=== PATIENT | female | born 1945 ===

== ENCOUNTER → 2020-02-12 08:09 | Outpatient (BNVA) | payer MEDICARE, SELFPAY | PROVIDERS: PCP Nurse Practitioner Family; Referring Provider Nurse Practitioner Family; Visit Provider Internal Medicine Endocrinology, Diabetes & Metabolism | DX: E03.8 Other specified hypothyroidism (principal); E06.3 Autoimmune thyroiditis; E04.2 Nontoxic multinodular goiter; R13.10 Dysphagia, unspecified; R06.00 Dyspnea, unspecified; Z79.899 Other long term (current) drug therapy | CPT/HCPCS: 99212 ==

== ENCOUNTER 2020-02-17 19:46 | Emergency (ER) | payer MEDICARE, SELFPAY ==
[2020-02-17 19:58] VITALS: BP 118/53; PULSE 100; RESP 20; TEMP 38.7; O2SAT 93; BMI 38.7
--- NOTE | 2020-02-17 20:17 | PC.NURSE ---
IV established, blood work including BCX and lactic obtained. Awaiting MD hay.
--- NOTE | 2020-02-17 21:04 | ED.FEVER ---
HPI - Fever General Chief Complaint: Fever Stated Complaint: Fever,Chills Time Seen by Provider: 02/17/20 20:49 Source: patient Mode of arrival: ambulatory Limitations: no limitations History of Present Illness HPI Narrative: patient with 3 days of fever, NVD, occaisional cough MD elicited complaint: fever Onset (ago): day(s) Related Data Home Medications Medication Instructions Recorded Confirmed atorvastatin 40 mg tablet 40 mg PO BEDTIME 02/12/20 blood sugar diagnostic #10 ea 02/12/20 ferrous sulfate 325 mg (65 mg 325 mg PO DAILY 02/12/20 iron) tablet glipizide 5 mg tablet, extended 5 mg PO DAILY 02/12/20 release 24 hr insulin glargine 100 unit/mL (3 40 unit SUBCUT BID ml 02/12/20 mL) subcutaneous pen lancets 28 gauge #100 ea 02/12/20 losartan 25 mg tablet 25 mg PO DAILY 02/12/20 metformin 500 mg tablet 500 mg PO BID 02/12/20 metoprolol succinate 50 mg 50 mg PO DAILY 02/12/20 tablet,extended release 24 hr omeprazole magnesium 20 mg 20 mg PO DAILY 02/12/20 tablet,delayed release pregabalin 100 mg capsule 100 mg PO BEDTIME 02/12/20 Previous Rx's Medication Instructions Recorded levothyroxine 75 mcg tablet 75 mcg PO DAILY 90 Days #90 tab 02/14/20 Allergies Allergy/AdvReac Type Severity Reaction Status Date / Time penicillin G [Penicillin G] Allergy Mild RASH/HIVES Unverified 12/27/19 15:54 lisinopril Allergy Unknown itching Verified 03/01/19 00:00 penicillin V Allergy Unknown Verified 03/01/19 00:00 Review of Systems Constitutional: Constitutional: Reports no additional constitutional complaints Eyes: Eyes: Reports no additional eye complaints ENT: Denies dizziness Cardiovascular: Cardiovascular: Reports no additional cardiovascular complaints Respiratory: Respiratory: Reports as per HPI Gastrointestinal: Gastrointestinal: Reports no additional gastrointestinal complaints Genitourinary: Genitourinary: Reports no additional female genitourinary complaints Musculoskeletal: Musculoskeletal: Reports no additional musculoskeletal complaints Integumentary/Breasts: Skin/Breast: Denies rash Neurologic: Reports system reviewed and no additional complaints, except as documented, Denies dizziness and Denies Sensory deficit (Neuro) Psychiatric: Psychiatric: Denies anxiety PMFSH Past Medical History Medical History Dysphagia Dyspnea Hypothyroidism Non-toxic multinodular goiter Surgical History History of carpal tunnel release History of partial hysterectomy History of tubal ligation Hx of cataract surgery Hx of cholecystectomy Hx of colonoscopy Hx of tonsillectomy Family History Family History (Updated 02/11/20 @ 11:38 by Melinda Dyer) Father Throat cancer Heart disease CVD (cardiovascular disease) Mother Stomach cancer Type 2 diabetes mellitus Arthritis of knee Hypertension Social History Social History Smoking Status: Never smoker Advance Directives: No Advance Directives Information Provided: Yes Physical Exam Vital Signs: Vital Signs: Last Vital Signs Temp 99.7 F 02/17/20 21:18 Pulse 91 02/17/20 21:18 Resp 16 02/17/20 21:18 BP 116/48 L 02/17/20 21:18 Pulse Ox 95 02/17/20 21:18 Body Mass Index 38.7 Const: Nutritional Appearance: obese Orientation/consciousness: oriented to person and patient oriented x3 Limitations: no limitations HENMT: Head: Yes normal to inspection Ears: external ears normal General nose exam: Normal external nose present Mouth: Normal oral and palatal mucosa present and oropharynx normal Throat: Yes posterior oropharynx normal Eyes: General: appearance normal, both eyes and all related structures Neck: Other: supple Neck: Yes normal visual inspection Chest: Chest palpation & inspection: normal inspection of the chest Resp: Auscultation: clear to auscultation bilaterally Cardio: Jugular venous distension: no JVD Rate: regular rate Rhythm: regular rhythm Heart sounds: S1 normal heart sound present and S2 normal heart sound present GI: Inspection: Yes normal to inspection Palpation (GI): Soft to palpation, nontender and No hepatosplenomegaly present Auscultation: normal bowel sounds : General: Yes no CVA tenderness Back/Spine/Pelvis: Back: no CVA tenderness Skin: General skin exam: no rashes or lesions noted Neuro: General: oriented to person and patient oriented x3 Cranial nerves: Yes CN's II-XII intact bilaterally Motor exam (neuro): 5/5 motor strength present throughout Sensory Exam: No Sensory deficit (Neuro) Extrem: General: Yes normal to inspection Psych: Appearance: grossly normal Course Course Course Narrative: Patient with no evidence of sepsis, awaiting stool for cdiff, looking well will dc home MDM - Fever MDM Narrative Medical decision making narrative: sepsis and pneumonia ruled out. CXR looks normal to me and questionable reading of infiltrate by radiologist. Will not treat at this time, will dc home with gastroenteritis and possible COVID Differential Diagnosis Differential diagnosis: Likely fever of unknown origin, gastroenteritis and viral infection Medical Records Attestation: I reviewed the patient's medical records. Lab Data Attestation: I reviewed the patient's lab results. Result diagrams: 02/17/20 20:58 02/17/20 20:58 Labs: Lab Results 02/17/20 02/17/20 02/17/20 Range/Units 20:58 20:58 20:58 WBC 5.4 (4.8-10.8) X10*3/uL RBC 4.02 L (4.20-5.50) X10*6/uL Hgb 11.8 L (12.0-16.0) g/dl Hct 35.1 L (37-47) % MCV 87.3 (80-98) fL MCH 29.4 (27.0-33.0) pg MCHC 33.6 (31.0-35.0) g/dl RDW 14.5 (11.0-16.0) % Plt Count 174 (160-400) X10*3/uL MPV 9.9 (9.4-12.3) fL Immature Gran % (Auto) 0.2 (0.0-0.4) % Neut % (Auto) 71.0 (45-73) % Lymph % (Auto) 16.0 L (20-40) % [place] % (Auto) 12.6 H (2-11) % Eos % (Auto) 0.0 (0-4) % Baso % (Auto) 0.2 (0-2) % Lymph # (Auto) 0.9 L (1.2-4.9) X10*3/uL [place] # (Auto) 0.7 (0.1-1.2) X10*3/uL Eos # (Auto) 0.0 (0.0-0.4) X10*3/uL Baso # (Auto) 0.0 (0.0-0.2) X10*3/uL Abs Immat Gran (auto) 0.01 (0.00-0.03) X10*3/uL Absolute Neuts (auto) 3.8 (2.0-8.3) X10*3/uL Absolute Nucleated RBC 0.000 (0.0-0.012) X10*3/uL Nucleated RBC % (auto) 0.0 (0.0-0.2) /100WBC PT 13.5 H (10.8-13.0) SEC INR 1.1 (0.9-1.1) APTT 33.3 (24.1-38.0) SEC Sodium 140 (135-145) mmol/L Potassium 3.5 (3.3-5.1) mmol/l Chloride 104 (96-108) mmol/L Carbon Dioxide 26 (22-29) mmol/L Anion Gap 14 (12-20) BUN 10 (9-16) mg/dL Creatinine 0.78 (0.5-1.4) mg/dL Estim Creat Clear Calc 72.2 Estimated GFR > 60 Random Glucose 179 H (60-115) mg/dL Lactic Acid (0.5-2.0) mmol/L Calcium 8.2 L (8.4-10.2) mg/dL Total Bilirubin 0.4 (0.0-1.0) mg/dL Direct Bilirubin 0.2 (0.0-0.5) mg/dL AST 44 H (5-31) U/L ALT 26 (0-31) U/L Alkaline Phosphatase 86 (39-117) U/L Total Protein 6.5 (6.5-8.0) g/dL Albumin 3.8 (3.5-5.0) g/dL Lipase 26 (8-78) U/L Urine Color Urine Appearance Urine pH (5.0-8.0) Ur Specific [place] (1.005-1.025) Urine Protein (NEG-TRACE) MG/DL Urine Glucose (UA) (NEG) MG/DL Urine Ketones (NEG) MG/DL Urine Blood (NEG) Urine Nitrite (NEG) Ur Leukocyte Esterase (NEG) Urine RBC (0) /HPF Urine WBC (0-4) /HPF Ur Squamous Epith Cells /LPF Urine Bacteria /LPF Urine Mucus /LPF Coronavirus (PCR) 02/17/20 02/17/20 02/17/20 Range/Units 20:58 20:58 20:58 WBC Cancelled (4.8-10.8) X10*3/uL RBC Cancelled (4.20-5.50) X10*6/uL Hgb Cancelled (12.0-16.0) g/dl Hct Cancelled (37-47) % MCV Cancelled (80-98) fL MCH Cancelled (27.0-33.0) pg MCHC Cancelled (31.0-35.0) g/dl RDW Cancelled (11.0-16.0) % Plt Count Cancelled (160-400) X10*3/uL MPV Cancelled (9.4-12.3) fL Immature Gran % (Auto) Cancelled (0.0-0.4) % Neut % (Auto) Cancelled (45-73) % Lymph % (Auto) Cancelled (20-40) % [place] % (Auto) Cancelled (2-11) % Eos % (Auto) Cancelled (0-4) % Baso % (Auto) Cancelled (0-2) % Lymph # (Auto) Cancelled (1.2-4.9) X10*3/uL [place] # (Auto) Cancelled (0.1-1.2) X10*3/uL Eos # (Auto) Cancelled (0.0-0.4) X10*3/uL Baso # (Auto) Cancelled (0.0-0.2) X10*3/uL Abs Immat Gran (auto) Cancelled (0.00-0.03) X10*3/uL Absolute Neuts (auto) Cancelled (2.0-8.3) X10*3/uL Absolute Nucleated RBC Cancelled (0.0-0.012) X10*3/uL Nucleated RBC % (auto) Cancelled (0.0-0.2) /100WBC PT (10.8-13.0) SEC INR (0.9-1.1) APTT (24.1-38.0) SEC Sodium (135-145) mmol/L Potassium (3.3-5.1) mmol/l Chloride (96-108) mmol/L Carbon Dioxide (22-29) mmol/L Anion Gap (12-20) BUN (9-16) mg/dL Creatinine (0.5-1.4) mg/dL Estim Creat Clear Calc Estimated GFR Random Glucose (60-115) mg/dL Lactic Acid 1.8 (0.5-2.0) mmol/L Calcium (8.4-10.2) mg/dL Total Bilirubin (0.0-1.0) mg/dL Direct Bilirubin (0.0-0.5) mg/dL AST (5-31) U/L ALT (0-31) U/L Alkaline Phosphatase (39-117) U/L Total Protein (6.5-8.0) g/dL Albumin (3.5-5.0) g/dL Lipase (8-78) U/L Urine Color Urine Appearance Urine pH (5.0-8.0) Ur Specific [place] (1.005-1.025) Urine Protein (NEG-TRACE) MG/DL Urine Glucose (UA) (NEG) MG/DL Urine Ketones (NEG) MG/DL Urine Blood (NEG) Urine Nitrite (NEG) Ur Leukocyte Esterase (NEG) Urine RBC (0) /HPF Urine WBC (0-4) /HPF Ur Squamous Epith Cells /LPF Urine Bacteria /LPF Urine Mucus /LPF Coronavirus (PCR) Cancelled 02/17/20 Range/Units 21:45 WBC (4.8-10.8) X10*3/uL RBC (4.20-5.50) X10*6/uL Hgb (12.0-16.0) g/dl Hct (37-47) % MCV (80-98) fL MCH (27.0-33.0) pg MCHC (31.0-35.0) g/dl RDW (11.0-16.0) % Plt Count (160-400) X10*3/uL MPV (9.4-12.3) fL Immature Gran % (Auto) (0.0-0.4) % Neut % (Auto) (45-73) % Lymph % (Auto) (20-40) % [place] % (Auto) (2-11) % Eos % (Auto) (0-4) % Baso % (Auto) (0-2) % Lymph # (Auto) (1.2-4.9) X10*3/uL [place] # (Auto) (0.1-1.2) X10*3/uL Eos # (Auto) (0.0-0.4) X10*3/uL Baso # (Auto) (0.0-0.2) X10*3/uL Abs Immat Gran (auto) (0.00-0.03) X10*3/uL Absolute Neuts (auto) (2.0-8.3) X10*3/uL Absolute Nucleated RBC (0.0-0.012) X10*3/uL Nucleated RBC % (auto) (0.0-0.2) /100WBC PT (10.8-13.0) SEC INR (0.9-1.1) APTT (24.1-38.0) SEC Sodium (135-145) mmol/L Potassium (3.3-5.1) mmol/l Chloride (96-108) mmol/L Carbon Dioxide (22-29) mmol/L Anion Gap (12-20) BUN (9-16) mg/dL Creatinine (0.5-1.4) mg/dL Estim Creat Clear Calc Estimated GFR Random Glucose (60-115) mg/dL Lactic Acid (0.5-2.0) mmol/L Calcium (8.4-10.2) mg/dL Total Bilirubin (0.0-1.0) mg/dL Direct Bilirubin (0.0-0.5) mg/dL AST (5-31) U/L ALT (0-31) U/L Alkaline Phosphatase (39-117) U/L Total Protein (6.5-8.0) g/dL Albumin (3.5-5.0) g/dL Lipase (8-78) U/L Urine Color YELLOW Urine Appearance CLEAR Urine pH 6.5 (5.0-8.0) Ur Specific [place] 1.020 (1.005-1.025) Urine Protein 2+ H (NEG-TRACE) MG/DL Urine Glucose (UA) NEG (NEG) MG/DL Urine Ketones 5 (NEG) MG/DL Urine Blood NEG (NEG) Urine Nitrite NEG (NEG) Ur Leukocyte Esterase TRACE H (NEG) Urine RBC 0 (0) /HPF Urine WBC 0-2 (0-4) /HPF Ur Squamous Epith Cells 1+ /LPF Urine Bacteria 1+ /LPF Urine Mucus 1+ /LPF Coronavirus (PCR) Imaging Data Chest x-ray: Radiologist's impression: question of RLL infiltrate Discharge Plan Discharge Clinical Impression: Gastroenteritis, Viral infection, COVID-19 Patient Disposition: Home, Self-Care Instructions: COVID-19 (Coronavirus Disease 2019) (ED), Gastroenteritis (ED) Additional Instructions: fluids as tolerated, tylenol or motrin for fever Prescriptions: No Action Lantus Solostar U-100 Insulin 100 unit/mL (3 mL) insulin pen 40 unit subcut BID RF: 0 pregabalin [Lyrica] 100 mg capsule 100 mg PO BEDTIME RF: 0 metformin 500 mg tablet 500 mg PO BID RF: 0 glipizide 5 mg tablet extended release 24hr 5 mg PO DAILY RF: 0 ferrous sulfate 325 mg (65 mg iron) tablet 325 mg PO DAILY RF: 0 metoprolol succinate 50 mg tablet extended release 24 hr 50 mg PO DAILY RF: 0 omeprazole magnesium [Prilosec OTC] 20 mg tablet,delayed release (DR/EC) 20 mg PO DAILY RF: 0 (DME) lancets [FreeStyle Lancets] 28 gauge misc See Rx Instructions .ROUTE .MEDSUPPLY Qty: 100 RF: 0 (DME) FreeStyle Test Strip See Rx Instructions .ROUTE .MEDSUPPLY Qty: 10 RF: 0 atorvastatin 40 mg tablet 40 mg PO BEDTIME RF: 0 losartan 25 mg tablet 25 mg PO DAILY RF: 0 levothyroxine [Levoxyl] 75 mcg tablet 75 mcg PO DAILY 90 Days Qty: 90 RF: 3 Referrals: Katie Saleh NP [Primary Care Provider] - 2 days
[2020-02-17] MEDS: 0.9 % Sodium Chloride 500 ML 1000 ML IV (21:10)
--- NOTE | 2020-02-17 21:12 | PC.NURSE ---
Addendum entered by Carolann Bernal 02/17/20 21:27: Tylenol held, pt stated that she took 2 Tylenol @ 1900 prior to coming to the hospital. MD at bedside, verbal order for Motrin given. Original Note: Pt medicated per EMAR with Tylenol and IVF.
[2020-02-17 21:13] LABS: Basophils Percent Auto 0.2 % (0-2); Hematocrit 35.1 % (37-47); Hemoglobin 11.8 g/dl (12.0-16.0); Imm Gran Abs Auto 0.01 X10*3/uL (0.00-0.03); Imm Gran Pct Auto 0.2 % (0.0-0.4); Lymphocytes Absolute Auto 0.9 X10*3/uL (1.2-4.9); MANUAL DIFF FLAG NO; Mean Corpuscular HGB Conc 33.6 g/dl (31.0-35.0); Mean Corpuscular Hemoglobin 29.4 pg (27.0-33.0); Mean Corpuscular Volume 87.3 fL (80-98); Mean Platelet Volume 9.9 fL (9.4-12.3); Monocytes Absolute Auto 0.7 X10*3/uL (0.1-1.2); Monocytes Percent Auto 12.6 % (2-11); Neutrophils Absolute Auto 3.8 X10*3/uL (2.0-8.3); Platelet Count 174 X10*3/uL (160-400); Red Blood Count 4.02 X10*6/uL (4.20-5.50); Red Cell Distribution Width 14.5 % (11.0-16.0); White Blood Count 5.4 X10*3/uL (4.8-10.8)
[2020-02-17 21:18] VITALS: BP 116/48; PULSE 91; RESP 16; TEMP 37.6; O2SAT 95
[2020-02-17 21:23] LABS: INTERNATIONAL NORM RATIO 1.1 (0.9-1.1); Prothrombin Time 13.5 SEC (10.8-13.0)
[2020-02-17 21:26] LABS: Partial Thromboplastin Time 33.3 SEC (24.1-38.0)
[2020-02-17 21:28] LABS: Lactic Acid 1.8 mmol/L (0.5-2.0)
[2020-02-17] MEDS: Ibuprofen 800 MG TABLET PO (21:32)
[2020-02-17 21:34] LABS: Alanine Aminotransferase 26 U/L (0-31); Albumin Level 3.8 g/dL (3.5-5.0); Alkaline Phosphatase 86 U/L (39-117); Anion Gap 14 (12-20); Aspartate Amino Transferase 44 U/L (5-31); Bilirubin Direct 0.2 mg/dL (0.0-0.5); Bilirubin Total 0.4 mg/dL (0.0-1.0); Blood Urea Nitrogen 10 mg/dL (9-16); Calcium 8.2 mg/dL (8.4-10.2); Carbon Dioxide 26 mmol/L (22-29); Chloride 104 mmol/L (96-108); Creatinine Clr Calc Pharmacy 72.2; Estimated Glomerular Filt Rate > 60; Glucose Random 179 mg/dL (60-115); Lipase 26 U/L (8-78); Potassium 3.5 mmol/l (3.3-5.1); Sodium 140 mmol/L (135-145); Total Protein 6.5 g/dL (6.5-8.0)
--- NOTE | 2020-02-17 21:35 | PC.NURSE ---
Pt medicated with Motrin per EMAR. Multiple orders for IVF placed in error. Pt MD, one liter of NS until lab results are back. IVF infusing per request. UA obtained and sent, pt aware a stool sample has been requested but was unable to provide it at this time. Continue to monitor.
--- NOTE | 2020-02-17 21:46 | XR_ITS ---
EXAMINATION: XR CHEST CLINICAL INFORMATION: Fever/pneumonia COMPARISON: 02/12/2019 TECHNIQUE: Frontal view of the chest was obtained. FINDINGS: Lungs are hypoexpanded. Heart size upper limits of normal. No evidence of CHF. Some mild bibasilar atelectasis is present. A small superimposed infiltrate, especially at the right lung base, cannot be entirely excluded. XR/XR chest 1V IMPRESSION: Bibasilar atelectasis. Small infiltrate at the right lung base cannot be entirely excluded.
--- NOTE | 2020-02-17 21:57 | PC.NURSE ---
This RN calling the lab as a duplicate order for BCX remains. Per lab, they will take care of it.
[2020-02-17 21:58] LABS: Glucose Urine UA NEG (NEG); Leukocyte Esterase Urine TRACE (NEG); Nitrite Urine NEG (NEG); PH 6.5 (5.0-8.0); Urine Blood NEG (NEG); Urine Ketones 5 MG/DL (NEG); Urine Protein 2+ MG/DL (NEG-TRACE)
[2020-02-17 22:00] LABS: Appearance Urine CLEAR; Color Urine YELLOW
[2020-02-17 22:04] LABS: Bacteria Urine 1+ /LPF; Mucus Urine 1+ /LPF; RBC Urine 0 /HPF (0); Squamous Epithelial Cell Urine 1+ /LPF; WBC Urine 0-2 /HPF (0-4)
[2020-02-17 23:12] VITALS: BP 111/55; PULSE 76; RESP 16; TEMP 37.1; O2SAT 96
--- NOTE | 2020-02-18 00:37 | PC.NURSE ---
aware that stool sample was never collected. Pt advised to f/u with PCP if diarrhea persists however pt has not had to move her stools since she arrived. DC instructions explained to pt and daughter via sprinkler fitter. Pt assisted into personal clothes, IV removed, VSS. Pt placed in a wheelchair awaiting her daughter to pick her up.
== END 2020-02-18 00:40 | disposition home or self-care (01) ==
PROVIDERS: Physician Assistant; Emergency Provider Emergency Medicine; PCP Nurse Practitioner Family
DX: U07.1 COVID-19 (principal); A08.4 Viral intestinal infection, unspecified; R50.9 Fever, unspecified; R05 Cough; Z79.899 Other long term (current) drug therapy
CPT/HCPCS: 36415; 71045; 80053; 80076; 81001; 82248; 83605; 83690; 85025; 85610; 85730; 87040; 87086; 99283; U0003

== ENCOUNTER → 2020-03-18 13:31 | Outpatient (BNVA) | payer MEDICARE, SELFPAY | PROVIDERS: PCP Nurse Practitioner Family; Visit Provider Internal Medicine Cardiovascular Disease | DX: I25.10 Atherosclerotic heart disease of native coronary artery without angina pectoris (principal) | CPT/HCPCS: 93005; 99212 ==

== ENCOUNTER 2020-04-26 11:18 | Emergency (ER) | payer MEDICARE, SELFPAY ==
--- NOTE | 2020-04-26 | XR_ITS ---
EXAMINATION: XR ELBOW, LEFT XR WRIST, LEFT CLINICAL INFORMATION: Pain after fall COMPARISON: None TECHNIQUE: Left elbow, 3 views Left wrist, 3 views FINDINGS: Left elbow: Acute, moderately displaced olecranon fracture. The olecranon fragment is proximally/posteriorly distracted by approximately 1 cm. Otherwise, bones of the elbow are intact, and joint spaces are maintained. Soft tissues are swollen around the fractured olecranon. Left wrist: Alignment is normal and joint spaces are maintained. No acute fracture or subluxation in the distal forearm or wrist. Minimal osteophyte formation at the first carpometacarpal joint. XR/XR wrist LT 2V IMPRESSION: * Acute, displaced olecranon fracture at the left elbow. * No evidence of distal forearm or carpal injury.
--- NOTE | 2020-04-26 | XR_ITS ---
EXAMINATION: XR ELBOW, LEFT XR WRIST, LEFT CLINICAL INFORMATION: Pain after fall COMPARISON: None TECHNIQUE: Left elbow, 3 views Left wrist, 3 views FINDINGS: Left elbow: Acute, moderately displaced olecranon fracture. The olecranon fragment is proximally/posteriorly distracted by approximately 1 cm. Otherwise, bones of the elbow are intact, and joint spaces are maintained. Soft tissues are swollen around the fractured olecranon. Left wrist: Alignment is normal and joint spaces are maintained. No acute fracture or subluxation in the distal forearm or wrist. Minimal osteophyte formation at the first carpometacarpal joint. XR/XR elbow LT 2V IMPRESSION: * Acute, displaced olecranon fracture at the left elbow. * No evidence of distal forearm or carpal injury.
[2020-04-26 14:59] VITALS: BP 159/73; PULSE 69; RESP 16; TEMP 36.6; O2SAT 96; BMI 38.7
--- NOTE | 2020-04-26 15:16 | XR_ITS ---
EXAMINATION: XR SHOULDER, LEFT CLINICAL INFORMATION: Pain COMPARISON: None TECHNIQUE: Three views of the left shoulder. FINDINGS: Bone alignment is normal. No fracture or dislocation is seen. The glenohumeral joint is normal. 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 Soft tissues are unremarkable. 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
--- NOTE | 2020-04-26 15:48 | ED_ITS ---
HPI - Extremity Problem General Chief complaint: Extremity Injury, Upper Stated complaint: lt elbow pain Time Seen by Provider: 04/26/20 15:16 History of Present Illness HPI Narrative: Patient complains of left elbow and shoulder pain after trip and fall, did not hit head did not hurt neck no numbness no tingling no paresthesias no chest pain no loss consciousness Related Data Home Medications Medication Instructions Recorded Confirmed atorvastatin 40 mg tablet 40 mg PO BEDTIME 02/12/20 03/18/20 blood sugar diagnostic #10 ea 02/12/20 03/18/20 ferrous sulfate 325 mg (65 mg 325 mg PO DAILY 02/12/20 03/18/20 iron) tablet glipizide 5 mg tablet, extended 5 mg PO DAILY 02/12/20 03/18/20 release 24 hr insulin glargine 100 unit/mL (3 40 unit SUBCUT BID ml 02/12/20 03/18/20 mL) subcutaneous pen lancets 28 gauge #100 ea 02/12/20 03/18/20 metformin 500 mg tablet 500 mg PO BID 02/12/20 03/18/20 metoprolol succinate 50 mg 50 mg PO DAILY 02/12/20 03/18/20 tablet,extended release 24 hr omeprazole magnesium 20 mg 20 mg PO DAILY 02/12/20 03/18/20 tablet,delayed release pregabalin 100 mg capsule 100 mg PO BEDTIME 02/12/20 03/18/20 aspirin 81 mg tablet,delayed 81 mg PO DAILY 03/18/20 03/18/20 release calcium carbonate 600 mg (1,500 1 tab PO BID 03/18/20 03/18/20 mg)-vitamin D3 400 unit tablet cholecalciferol (vitamin D3) 50 50 mcg PO DAILY 03/18/20 03/18/20 mcg (2,000 unit) capsule metformin 500 mg tablet,extended 1,000 mg PO BID 03/18/20 03/18/20 release 24 hr multivitamin with folic acid 400 0 tab PO 03/18/20 03/18/20 mcg tablet omeprazole 20 mg capsule,delayed 20 mg PO DAILY 03/18/20 03/18/20 release simvastatin 40 mg tablet 40 mg PO BEDTIME 03/18/20 03/18/20 Previous Rx's Medication Instructions Recorded levothyroxine 75 mcg tablet 75 mcg PO DAILY 90 Days #90 tab 02/14/20 hydrochlorothiazide 12.5 mg tablet 12.5 mg PO DAILY 90 Days #90 tab 03/18/20 losartan 25 mg tablet 25 mg PO DAILY 90 Days #90 tab 03/18/20 Allergies Allergy/AdvReac Type Severity Reaction Status Date / Time penicillin G [Penicillin G] Allergy Mild RASH/HIVES Unverified 12/27/19 15:54 lisinopril Allergy Unknown itching Verified 03/01/19 00:00 penicillin V Allergy Unknown Verified 03/01/19 00:00 Review of Systems Review of Systems: Positive for left elbow and shoulder pain Negatives are no head injury no headache no loss of consciousness no dizziness no fainting or feeling faint no weakness no nausea no vomiting no numbness no weakness or paresthesias Yes all other systems are reviewed and are negative [facility] Past Medical History Source: nursing notes reviewed Medical History CAD (coronary artery disease) Diabetes mellitus Dysphagia Dyspnea HTN (hypertension) Hyperlipidemia Hypothyroidism Non-toxic multinodular goiter Surgical History History of carpal tunnel release History of partial hysterectomy History of tubal ligation Hx of cataract surgery Hx of cholecystectomy Hx of colonoscopy Hx of tonsillectomy Family History Family History Father Throat cancer Heart disease CVD (cardiovascular disease) Mother Stomach cancer Type 2 diabetes mellitus Arthritis of knee Hypertension Social History Social History Smoking Status: Never smoker Smoked in Last 30 Days: No Use of substances other than those prescribed or required for medical reasons: No Advance Directives: No Advance Directives Information Provided: No Physical Exam Vital Signs: Vital Signs: Last Vital Signs Temp 97.9 F 04/26/20 14:59 Pulse 69 04/26/20 14:59 Resp 16 04/26/20 14:59 BP 159/73 H 04/26/20 14:59 Pulse Ox 96 04/26/20 14:59 Body Mass Index 38.7 General appearance is no acute distress, comfortable and cooperative and O x3 Normocephalic atraumatic The neck is supple and nontender The chest no respiratory distress no chest wall tenderness no rib tenderness The extremities lower extremities are normal The left arm there is take tenderness and swelling and inability to extend and rotate the elbow, the left shoulder has some tenderness and pain with movement without any swelling or ecchymosis The left wrist has full range of motion the left hand has full range of motion and the arm is neurovascular intact distal and the skin is intact Neuro was no focal deficit Course Course Course Narrative: X-ray showed a displaced olecranon fracture Case was discussed by text with ortho RUY dewitt who advised posterior splint and sling and follow with the office in 2 days on Tuesday Posterior splint was placed by the tech and was neurovascular intact afterwards and patient was given a sling as well Discharge Plan Discharge Clinical Impression: Closed fracture of left elbow Qualifiers: Encounter type: initial encounter Qualified Code(s): S42.402A - Unspecified fracture of lower end of left humerus, initial encounter for closed fracture Patient Disposition: Home, Self-Care Additional Instructions: Your case was discussed with orthopedic physician assistant professor of nursing kristin dewitt She will call you Tuesday morning to be seen in the office on Tuesday, if she does not call you you could call them at [phone] You can let them know that it was discussed with the physician assistant professor of nursing who said she wanted to see you Tuesday Return any time any worse condition or any concerns Prescriptions: No Action losartan 25 mg tablet 25 mg PO DAILY 90 Days Qty: 90 RF: 0 hydrochlorothiazide 12.5 mg tablet 12.5 mg PO DAILY 90 Days Qty: 90 RF: 0 Lantus Solostar U-100 Insulin 100 unit/mL (3 mL) insulin pen 40 unit subcut BID RF: 0 pregabalin [Lyrica] 100 mg capsule 100 mg PO BEDTIME RF: 0 metformin 500 mg tablet 500 mg PO BID RF: 0 glipizide 5 mg tablet extended release 24hr 5 mg PO DAILY RF: 0 ferrous sulfate 325 mg (65 mg iron) tablet 325 mg PO DAILY RF: 0 metoprolol succinate 50 mg tablet extended release 24 hr 50 mg PO DAILY RF: 0 omeprazole magnesium [Prilosec OTC] 20 mg tablet,delayed release (DR/EC) 20 mg PO DAILY RF: 0 (DME) lancets [FreeStyle Lancets] 28 gauge misc See Rx Instructions .ROUTE .MEDSUPPLY Qty: 100 RF: 0 (DME) FreeStyle Test Strip See Rx Instructions .ROUTE .MEDSUPPLY Qty: 10 RF: 0 atorvastatin 40 mg tablet 40 mg PO BEDTIME RF: 0 levothyroxine [Levoxyl] 75 mcg tablet 75 mcg PO DAILY 90 Days Qty: 90 RF: 3 aspirin 81 mg tablet,delayed release (DR/EC) 81 mg PO DAILY RF: 0 simvastatin 40 mg tablet 40 mg PO BEDTIME RF: 0 omeprazole 20 mg capsule,delayed release(DR/EC) 20 mg PO DAILY RF: 0 metformin 500 mg tablet extended release 24 hr 1,000 mg PO BID RF: 0 calcium carbonate-vitamin D3 600 mg(1,500mg) -400 unit tablet 1 tab PO BID RF: 0 cholecalciferol (vitamin D3) 50 mcg (2,000 unit) capsule 50 mcg PO DAILY RF: 0 multivitamin with folic acid 400 mcg tablet 0 tab PO RF: 0 Referrals: Portillo Dewitt PA-C [Physician Funds Transfer Clerk] - 2 days (Left elbow olecranon fracture Discussed with RUY dewitt and patient is to be scheduled for Tuesday Her phone number is [phone]) Interventions: ED Discharge Assessment Last Done: 04/26/20 16:49 Discharge Date/Time: 04/26/20 16:50
--- NOTE | 2020-04-26 16:34 | PC.NURSE ---
wagner wilkinson reviewed xray results and poc with wagner loaiza [facility] [place] [facility], liana, ert applied splint, wagner wilkinson assessed prior to dc
== END 2020-04-26 16:50 | disposition home or self-care (01) ==
PROVIDERS: Emergency Provider Emergency Medicine; PCP Nurse Practitioner Family
DX: S42.402A Unspecified fracture of lower end of left humerus, initial encounter for closed fracture (principal); M25.522 Pain in left elbow; M25.532 Pain in left wrist; M25.512 Pain in left shoulder; I10 Essential (primary) hypertension; I25.10 Atherosclerotic heart disease of native coronary artery without angina pectoris; W01.0XXA Fall on same level from slipping, tripping and stumbling without subsequent striking against object, initial encounter; Y93.9 Activity, unspecified; Y92.9 Unspecified place or not applicable; Y99.9 Unspecified external cause status; Z79.899 Other long term (current) drug therapy
CPT/HCPCS: 73030; 73070; 73100; 99283; 99284

== ENCOUNTER → 2020-04-29 08:25 | Outpatient (BNVA) | payer MEDICARE, SELFPAY | PROVIDERS: PCP Nurse Practitioner Family; Visit Provider Physician Assistant | DX: S52.022A Displaced fracture of olecranon process without intraarticular extension of left ulna, initial encounter for closed fracture (principal) | CPT/HCPCS: 99202 ==

== ENCOUNTER 2020-05-01 06:04 | Day surgery (SDC) | payer MEDICARE, SELFPAY ==
[2020-04-30 07:45] VITALS: BMI 38.7
--- NOTE | 2020-04-30 13:32 | P.CONAN_ITS ---
Documented by User: Noelle Rodriguez 04/30/20 13:40 HPI - Anesthesia Eval Consult details Narrative: 74yo F for Left Olecrannon ORIF Sent for med clearance by ron. Pending. [facility] Past Medical History Medical History (Updated 04/30/20 @ 13:32 by Noelle Rodriguez) CAD (coronary artery disease) Diabetes mellitus Dysphagia Dyspnea HTN (hypertension) Hyperlipidemia Hypothyroidism Non-toxic multinodular goiter Family History Family History Father Throat cancer Heart disease CVD (cardiovascular disease) Mother Stomach cancer Type 2 diabetes mellitus Arthritis of knee Hypertension Surgical History Surgical History History of carpal tunnel release History of partial hysterectomy History of tubal ligation Hx of cataract surgery Hx of cholecystectomy Hx of colonoscopy Hx of tonsillectomy Social History Social History (Updated 04/29/20 @ 08:58 by TERESO Swenson) Alcohol intake: never Smoking Status: Never smoker Second Hand Smoke Exposure: No Use of substances other than those prescribed or required for medical reasons: No Advance Directives: No Advance Directives Information Provided: No Advance Directives on File: No Current occupational status: unemployed Current occupation: right handed Narrative Narrative: Cardiology office visit 03/18/20. Stable CAD with 1 year f/u. Encouraged increased activity and weight loss. Meds Allergies Allergy/AdvReac Type Severity Reaction Status Date / Time penicillin G [Penicillin G] Allergy Mild RASH/HIVES Verified 04/29/20 08:55 lisinopril Allergy Unknown itching Verified 04/29/20 08:55 penicillin V Allergy Unknown Unknown Verified 04/29/20 08:55 Home Medications Medication Instructions Recorded Confirmed Type atorvastatin 40 mg tablet 40 mg PO BEDTIME 02/12/20 03/18/20 History blood sugar diagnostic #10 ea 02/12/20 03/18/20 History ferrous sulfate 325 mg (65 mg 325 mg PO DAILY 02/12/20 03/18/20 History iron) tablet glipizide 5 mg tablet, extended 5 mg PO DAILY 02/12/20 03/18/20 History release 24 hr insulin glargine 100 unit/mL (3 40 unit SUBCUT BID ml 02/12/20 03/18/20 History mL) subcutaneous pen lancets 28 gauge #100 ea 02/12/20 03/18/20 History metformin 500 mg tablet 500 mg PO BID 02/12/20 03/18/20 History metoprolol succinate 50 mg 50 mg PO DAILY 02/12/20 03/18/20 History tablet,extended release 24 hr omeprazole magnesium 20 mg 20 mg PO DAILY 02/12/20 03/18/20 History tablet,delayed release pregabalin 100 mg capsule 100 mg PO BEDTIME 02/12/20 03/18/20 History aspirin 81 mg tablet,delayed 81 mg PO DAILY 03/18/20 03/18/20 History release calcium carbonate 600 mg (1,500 1 tab PO BID 03/18/20 03/18/20 History mg)-vitamin D3 400 unit tablet cholecalciferol (vitamin D3) 50 50 mcg PO DAILY 03/18/20 03/18/20 History mcg (2,000 unit) capsule metformin 500 mg tablet,extended 1,000 mg PO BID 03/18/20 03/18/20 History release 24 hr multivitamin with folic acid 400 0 tab PO 03/18/20 03/18/20 History mcg tablet omeprazole 20 mg capsule,delayed 20 mg PO DAILY 03/18/20 03/18/20 History release simvastatin 40 mg tablet 40 mg PO BEDTIME 03/18/20 03/18/20 History Exam Exam Date and Time: April 30, 2020 1332 Height,Weight and Vital Signs: Height 5 ft 3 in Weight 99.337 kg Pertinent Lab Results Pertinent Lab Results: Laboratory Tests 02/17/20 02/17/20 20:58 20:58 WBC 5.4 Hgb 11.8 L Hct 35.1 L Plt Count 174 Sodium 140 Potassium 3.5 Chloride 104 Carbon Dioxide 26 BUN 10 Creatinine 0.78 Narrative Narrative: EKG 03/18/20 NSR with LVH with anterior T-wave inversion is suggestive of anterior ischemia versus normal variant Assessment and Plan Assessment Anesthesia Assessment: Chart Reviewed Documented by User: Lucio Brunson MD 05/01/20 08:13 [facility] Past Medical History Medical History (Updated 04/30/20 @ 13:32 by Noelle Rodriguez) CAD (coronary artery disease) Diabetes mellitus Dysphagia Dyspnea HTN (hypertension) Hyperlipidemia Hypothyroidism Non-toxic multinodular goiter Family History Family History Father Throat cancer Heart disease CVD (cardiovascular disease) Mother Stomach cancer Type 2 diabetes mellitus Arthritis of knee Hypertension Surgical History Surgical History History of carpal tunnel release History of partial hysterectomy History of tubal ligation Hx of cataract surgery Hx of cholecystectomy Hx of colonoscopy Hx of tonsillectomy Social History Social History (Updated 04/29/20 @ 08:58 by TERESO Swenson) Alcohol intake: never Smoking Status: Never smoker Second Hand Smoke Exposure: No Use of substances other than those prescribed or required for medical reasons: No Advance Directives: No Advance Directives Information Provided: No Advance Directives on File: No Current occupational status: unemployed Current occupation: right handed Meds Allergies Allergy/AdvReac Type Severity Reaction Status Date / Time penicillin G [Penicillin G] Allergy Mild RASH/HIVES Verified 04/29/20 08:55 lisinopril Allergy Unknown itching Verified 04/29/20 08:55 penicillin V Allergy Unknown Unknown Verified 04/29/20 08:55 Home Medications Medication Instructions Recorded Confirmed Type atorvastatin 40 mg tablet 40 mg PO BEDTIME 02/12/20 03/18/20 History blood sugar diagnostic #10 ea 02/12/20 03/18/20 History ferrous sulfate 325 mg (65 mg 325 mg PO DAILY 02/12/20 03/18/20 History iron) tablet glipizide 5 mg tablet, extended 5 mg PO DAILY 02/12/20 03/18/20 History release 24 hr insulin glargine 100 unit/mL (3 40 unit SUBCUT BID ml 02/12/20 03/18/20 History mL) subcutaneous pen lancets 28 gauge #100 ea 02/12/20 03/18/20 History metformin 500 mg tablet 500 mg PO BID 02/12/20 03/18/20 History metoprolol succinate 50 mg 50 mg PO DAILY 02/12/20 03/18/20 History tablet,extended release 24 hr omeprazole magnesium 20 mg 20 mg PO DAILY 02/12/20 03/18/20 History tablet,delayed release pregabalin 100 mg capsule 100 mg PO BEDTIME 02/12/20 03/18/20 History aspirin 81 mg tablet,delayed 81 mg PO DAILY 03/18/20 03/18/20 History release calcium carbonate 600 mg (1,500 1 tab PO BID 03/18/20 03/18/20 History mg)-vitamin D3 400 unit tablet cholecalciferol (vitamin D3) 50 50 mcg PO DAILY 03/18/20 03/18/20 History mcg (2,000 unit) capsule metformin 500 mg tablet,extended 1,000 mg PO BID 03/18/20 03/18/20 History release 24 hr multivitamin with folic acid 400 0 tab PO 03/18/20 03/18/20 History mcg tablet omeprazole 20 mg capsule,delayed 20 mg PO DAILY 03/18/20 03/18/20 History release simvastatin 40 mg tablet 40 mg PO BEDTIME 03/18/20 03/18/20 History Exam Airway Mallampati Class: IV TM Dist: >3cm Neck ROM: Limited Denture: Upper and Lower Heart: RRR Lungs: NL Assessment and Plan Assessment Anesthesia Assessment: Anesthesia Plan Discussed and Chart Reviewed Final Anesthetic Review NPO: Yes ASA Class: III Final Preanesthetic Review: No Changes in Pt Med Stat, Meds/Allgs Chart Reviewed, Consent Obtained/Reviewed and Anes Risks/Benef Reviewed Patient Risk: Intermediate Procedure Risk: Low Anesthetic Plan Anesthetic Plan: GA and Regional Block Disposition: Standard PACU
[2020-05-01] VITALS (7 sets, daily range): BP systolic 133–153; BP diastolic 66–82; PULSE 72–90; RESP 16–18; TEMP 36.3–36.6; O2SAT 91–98
[2020-05-01 06:46] LABS: Glucose, Whole Blood 166 mg/dL (60-115)
[2020-05-01] MEDS: Lactated Ringers 1,000 ML 100 ML IVCONT (06:51)
[2020-05-01] MEDS: ceFAZolin Sodium/Dextrose,Iso 2 GM/50 ML PIGGYBACK IV (06:52)
--- NOTE | 2020-05-01 07:07 | FL_ITS ---
EXAMINATION: XR FLUOROSCOPY WITH IMAGES CLINICAL INFORMATION: Open reduction olecranon fracture COMPARISON: Radiographs left elbow 04/26/2020 TECHNIQUE: Fluoroscopy performed by Dr. Leonard Instrum. Fluoroscopy time: 12 seconds DAP: 13.33 mGycm2 Images: 4 FINDINGS: Olecranon fracture is reduced with 2 pins and wire. Fracture fragments are in near-anatomic alignment. No dislocation. FL/FL guidance in OR IMPRESSION: Status post reduction internal fixation olecranon fracture in near anatomic alignment.
--- NOTE | 2020-05-01 07:27 | MHC.SHP ---
Pre-Procedural Eval Section A The patient is an INPATIENT: No Changes since office visit: No Cold of Flu in the past 2 weeks, No New Medical Problems, No Changes in Medication and No Patient answered all questions The History & Physical has been completed within 30 days and I have reviewed it.: Yes Section B Chief Complaint: elbow fx Allergies: Allergies Allergy/AdvReac Type Severity Reaction Status Date / Time penicillin G [Penicillin G] Allergy Mild RASH/HIVES Verified 04/29/20 08:55 lisinopril Allergy Unknown itching Verified 04/29/20 08:55 penicillin V Allergy Unknown Unknown Verified 04/29/20 08:55 Plan I have reviewed the history and physical and performed a pertinent physical examination on my patient. No changes have occurred unless specified.
--- NOTE | 2020-05-01 10:22 | HO.POSTANES ---
Post Anesthesia Evaluation Post Anesthesia Evaluation Vital Signs: Vital Signs Temp Pulse Resp BP Pulse Ox 05/01/20 09:56 97.3 F 77 18 134/73 96 05/01/20 09:42 81 18 142/66 H 96 05/01/20 09:27 82 16 133/69 95 05/01/20 09:22 84 16 143/75 H 95 05/01/20 09:17 90 16 153/80 H 91 L 05/01/20 09:12 97.6 F 90 16 152/82 H 98 05/01/20 06:37 97.8 F 72 16 141/66 H 97 Anesthesia: Nerve Block and General LMA Mental Status: Awake Pain Control: Satisfactory Nausea/Vomiting: None Hydration: Adequate Anesthesia-Related Issues: No Anes. Related Issues
--- NOTE | 2020-05-01 10:27 | P.PCNOP_ITS ---
Brief Operative Note Date of procedure: 05/01/20 Pre-op diagnosis: left olecraonon fracture Post-op diagnosis: same Procedure: ORIF LEFT OLECRANON Anesthesia: GLMA and regional Surgeon: Aisha Da Silva [employer] Sales Associate: Portillo Bertrand Estimated blood loss (mL): 20 Condition: stable Disposition: PACU
--- NOTE | 2020-05-01 10:55 | OP_ITS ---
SURGEON: Aisha Da Silva MD PREOPERATIVE DIAGNOSIS: Olecranon fracture, left elbow. POSTOPERATIVE DIAGNOSIS: Olecranon fracture, left elbow. PROCEDURE PERFORMED: Open reduction and internal fixation of fracture, left olecranon/elbow. ESTIMATED BLOOD LOSS: COMPLICATIONS: No complications. ANESTHESIA: CONTRACT PROJECT MANAGER: RUY Norris SPECIMENS: CLINICAL NOTE: This lady had fallen and injured her elbow. The above noted injury was found. She was seen in the office. Subsequently she was medically cleared. Therefore, after explaining the risks, benefits, and alternatives and answering all the questions, it was mutually agreed upon to carry out the following procedure. DESCRIPTION OF PROCEDURE: Under regional block and general anesthetic, the patient was placed supine on the operating table. Pneumatic tourniquet cuff was placed around the upper left thigh, inflated to 250 mmHg at the end of the case. The left elbow and arm were prepped and draped in standard fashion. Surgical time-out was then performed, the patient was identified, procedure confirmed, site confirmed. Medical analogy and history were reviewed. Preoperative antibiotics given. Standard DVT prophylaxis in place. All other items were discussed and agreed upon. Standard incision along the subcutaneous border of the ulna over the olecranon was made, taken down through subcutaneous tissues. Hemostasis was achieved along the way using electrocautery, this brought us to the fracture site, which was irrigated and curetted, clear of fracture hematoma/clot. The articular surface of the humerus was identified and was intact. The soft tissues were then elevated both medially, laterally subperiosteally off the proximal end of the ulna. A transverse hole was then made distal to the fracture site. The wire was placed through this hole initially. Following this, the fracture was reduced and 2 parallel K-wires were inserted. The position of these was checked on AP and lateral fluoroscopy and found in appropriate position in both views. Following this, the [id number] was performed and tied under the wires snugly. The wire was cut off and bent over. The guidewires were then bent over and cut off and then tapped into the bone over the cerclage wire and away from the skin. AP and lateral fluoroscopy demonstrated this point, the fracture reduced anatomically. The hardware was all in place and the elbow had full range of motion with the fracture being held in appropriate position. Therefore, we proceeded to closure. Wound was thoroughly irrigated. Deep tissue was approximated using interrupted 2-0 Dexon. Skin approximated using interrupted 2-0 Dexon. Skin was closed with bernie and the tourniquet was let down. Total tourniquet time 52 minutes. The arm was placed in a posterior slab in sling. The patient's anesthesia was reversed and transferred supine to the room bed, then taken to recovery room in good condition. Intraoperatively, MD HAROON Molina/ROGERIO / [id number] MTDReinaldo
== END 2020-05-01 10:29 | disposition home or self-care (01) ==
PROVIDERS: PCP Nurse Practitioner Family; Visit Provider Orthopaedic Surgery
PROC: (CPT 24999; principal; 2020-05-01 07:30)
DX: S52.022A Displaced fracture of olecranon process without intraarticular extension of left ulna, initial encounter for closed fracture (principal); W01.0XXA Fall on same level from slipping, tripping and stumbling without subsequent striking against object, initial encounter; Y93.9 Activity, unspecified; Y92.099 Unspecified place in other non-institutional residence as the place of occurrence of the external cause; Y99.8 Other external cause status; Z88.0 Allergy status to penicillin; I10 Essential (primary) hypertension; Z88.8 Allergy status to other drugs, medicaments and biological substances; E11.9 Type 2 diabetes mellitus without complications; Z79.4 Long term (current) use of insulin; Z79.82 Long term (current) use of aspirin; Z79.899 Other long term (current) drug therapy; Z90.49 Acquired absence of other specified parts of digestive tract
CPT/HCPCS: 24685; 82947; C1713; J0690; J1170; J2250; J2370; J3010

== ENCOUNTER 2020-05-14 08:45 | Outpatient (REF) | payer MEDICARE, SELFPAY ==
--- NOTE | 2020-05-14 10:44 | XR_ITS ---
EXAMINATION: XR ELBOW, LEFT CLINICAL INFORMATION: Olecranon fracture COMPARISON: Previous x-ray 04/26/2020 and intraoperative fluoroscopy 05/01/2020 TECHNIQUE: 2 of the left elbow. FINDINGS: There is orthopedic hardware with 2 pins and cerclage wire transfixing the olecranon fracture. Orthopedic hardware appears unchanged. Bone alignment is unchanged. No other fracture is seen. There is an elbow joint effusion. There is soft tissue swelling. There are overlying skin bernie. XR/XR elbow LT min 3V IMPRESSION: ORIF of olecranon fracture.
== END 2020-05-14 08:46 | disposition home or self-care (01) ==
LOC: HO.HOSX 08:45
PROVIDERS: Visit Provider Physician Assistant
DX: S52.022D Displaced fracture of olecranon process without intraarticular extension of left ulna, subsequent encounter for closed fracture with routine healing (principal)
CPT/HCPCS: 73080; 99212

== ENCOUNTER → 2020-05-19 11:04 | Outpatient (BNVA) | payer MEDICARE, SELFPAY | PROVIDERS: PCP Nurse Practitioner Family; Visit Provider Internal Medicine Endocrinology, Diabetes & Metabolism | DX: Z76.89 Persons encountering health services in other specified circumstances (principal) | CPT/HCPCS: Q3014 ==

== ENCOUNTER 2020-05-26 12:46 | Outpatient (REF) | payer MEDICARE, SELFPAY ==
[2020-05-26 14:07] LABS: Free T4 (Free Thyroxine) 1.07 ng/dL (0.71-1.85); Thyroid Stimulating Hormone 0.97 uIU/mL (0.32-4.0)
== END 2020-05-26 12:47 | disposition home or self-care (01) ==
LOC: HO.LAB 12:46
PROVIDERS: Visit Provider Internal Medicine Endocrinology, Diabetes & Metabolism
DX: E04.2 Nontoxic multinodular goiter (principal)
CPT/HCPCS: 36415; 84439; 84443

== ENCOUNTER → 2020-06-03 13:23 | Outpatient (BNVA) | payer MEDICARE, SELFPAY | PROVIDERS: PCP Nurse Practitioner Family; Visit Provider Physician Assistant | CPT/HCPCS: Q3014 ==

== ENCOUNTER 2020-06-05 13:00 | Outpatient (REF) | payer MEDICARE, SELFPAY ==
--- NOTE | 2020-06-05 | PFT_ITS ---
Forced vital capacity is slightly decreased. FEV1 slightly decreased but FEV1/FVC ratio is normal. [id number] normal, MVV moderately reduced. The patient was unable to do maneuvers for lung volumes and diffusion capacity. CONCLUSION: The spirometry findings are suggestive of mild to moderate degree of restrictive pulmonary disorder and no significant obstructive disorder. Clinical correlation is recommended. MD SOHAM Hunt/ROGERIO / [id number]
== END 2020-06-05 13:01 | disposition home or self-care (01) ==
LOC: HO.RESP 13:00
PROVIDERS: PCP Nurse Practitioner Family; Visit Provider Internal Medicine Endocrinology, Diabetes & Metabolism
DX: R06.00 Dyspnea, unspecified (principal)
CPT/HCPCS: 94010

== ENCOUNTER 2020-06-05 14:14 | Emergency (ER) | payer MEDICARE, SELFPAY ==
--- NOTE | ~2020-06-05 | XR_ITS ---
EXAMINATION: XR ELBOW, LEFT CLINICAL INFORMATION: Elbow pain, prior ORIF. COMPARISON: Radiographs left elbow 05/14/2020, 04/26/2020. TECHNIQUE: 3 views of the left elbow are obtained. FINDINGS: Olecranon fracture is reduced with 2 pins and wire. The skin bernie are no longer present. The 2 orthopedic pins appear mildly retracted from prior study 05/14/2020, one pin by 8 mm and other pin by 3 mm when compared with prior lateral view 05/14/2020. Fracture fragments are in near-anatomic alignment stable. The hardware is otherwise intact. No fracture or destructive process or osteolysis. No periostitis. XR/XR elbow LT min 3V IMPRESSION: The 2 orthopedic pins traversing the olecranon fracture appear mildly retracted when compared with lateral view 05/14/2020. Fracture alignment is stable. No destructive process.
[2020-06-05 14:18] VITALS: BP 163/75; PULSE 72; RESP 16; TEMP 37; O2SAT 99; BMI 38.9
--- NOTE | 2020-06-05 15:09 | ED.EXTPRO ---
HPI - Extremity Problem General Chief complaint: Extremity Injury, Upper Stated complaint: left elbow pain Time Seen by Provider: 06/05/20 14:40 Source: patient Mode of arrival: ambulatory Limitations: language barrier (Martiniquais Speaking ) History of Present Illness HPI Narrative: 75-year-old female with a past medical history of hypertension, hyperlipidemia, diabetes, CAD, hypothyroidism, past history of COVID, and ORIF of the left olecranon process performed on 05/01/[address] Da Silva presenting to the ED with complaints of atraumatic left elbow pain over the past few days worse today with limited range of motion. Denies any fevers, recent falls, stiffness, redness or rashes or any other symptoms complaints or concerns. MD Complaint: extremity pain Onset (ago): day(s) (Few days worse today) Pain Consistency: constant Location: left Severity scale (1-10): 10 Quality: aching Radiation: none Relieving factors: nothing Exacerbating factors: range of motion Associated symptoms: denies other symptoms Related Data Home Medications Medication Instructions Recorded Confirmed atorvastatin 40 mg tablet 40 mg PO BEDTIME 02/12/20 06/03/20 blood sugar diagnostic #10 ea 02/12/20 06/03/20 ferrous sulfate 325 mg (65 mg 325 mg PO DAILY 02/12/20 06/03/20 iron) tablet glipizide 5 mg tablet, extended 5 mg PO DAILY 02/12/20 06/03/20 release 24 hr lancets 28 gauge #100 ea 02/12/20 06/03/20 metoprolol succinate 50 mg 50 mg PO DAILY 02/12/20 05/19/20 tablet,extended release 24 hr omeprazole magnesium 20 mg 20 mg PO DAILY 02/12/20 05/19/20 tablet,delayed release pregabalin 100 mg capsule 100 mg PO BEDTIME 02/12/20 05/19/20 aspirin 81 mg tablet,delayed 81 mg PO DAILY 03/18/20 06/03/20 release calcium carbonate 600 mg (1,500 1 tab PO BID 03/18/20 06/03/20 mg)-vitamin D3 400 unit tablet cholecalciferol (vitamin D3) 50 50 mcg PO DAILY 03/18/20 06/03/20 mcg (2,000 unit) capsule metformin 500 mg tablet,extended 1,000 mg PO BID 03/18/20 06/03/20 release 24 hr simvastatin 40 mg tablet 40 mg PO BEDTIME 03/18/20 05/19/20 insulin glargine 100 unit/mL (3 30 unit SUBCUT BID ml 05/19/20 06/03/20 mL) subcutaneous pen multivitamin with folic acid 400 1 tab PO DAILY tab 05/19/20 05/19/20 mcg tablet Previous Rx's Medication Instructions Recorded levothyroxine 75 mcg tablet 75 mcg PO DAILY 90 Days #90 tab 02/14/20 hydrochlorothiazide 12.5 mg tablet 12.5 mg PO DAILY 90 Days #90 tab 03/18/20 oxycodone 10 mg tablet 10 mg PO Q6H PRN 7 Days #28 tab 05/02/20 losartan 25 mg tablet 25 mg PO DAILY 90 Days #90 tab 05/15/20 methylcellulose (laxative) 500 mg 500 mg PO BID #60 tab 06/03/20 tablet acetaminophen [Tylenol Extra 1,000 mg PO QID PRN #14 tab 06/05/20 Strength] ibuprofen 600 mg PO Q8H PRN #14 tab 06/05/20 oxycodone 5 mg PO BID PRN #10 tab 06/05/20 Allergies Allergy/AdvReac Type Severity Reaction Status Date / Time penicillin G [Penicillin G] Allergy Mild RASH/HIVES Verified 06/03/20 13:24 lisinopril Allergy Unknown itching Verified 06/03/20 13:24 penicillin V Allergy Unknown Unknown Verified 06/03/20 13:24 Review of Systems Review of Systems: Constitutional : No Fever, No Chills ENT/Mouth : No Ear Pain, No Hoarseness, No sore throat Eyes: No Eye Pain, No Swelling, No Redness, No Foreign Body Cardiovascular : No Chest Pain, No SOB Respiratory : No Cough, No Dyspnea Gastrointestinal : No Nausea, No Vomiting, No Diarrhea, No abdominal Pain Genitourinary : No Dysuria, No Hematuria Musculoskeletal : + joint pain, No Myalgias, No Joint Swelling Skin : No Skin lacerations, No rash Neuro : No Weakness, No Numbness, No Paresthesias, No Loss of Consciousness, No Dizziness, No Headache Psych : No Anxiety/Panic, No Depression Heme/Lymph: no easy bruising, no Lymphadenopathy Endocrine : No Polyuria, No Polydipsia Yes all other systems are reviewed and are negative [facility] Past Medical History Attestation statement: The following information was validated with the patient. Medical History Broken arm CAD (coronary artery disease) Chronic constipation Diabetes mellitus Dysphagia Dyspnea HTN (hypertension) Hyperlipidemia Hypothyroidism Non-toxic multinodular goiter Surgical History History of carpal tunnel release History of partial hysterectomy History of surgery on arm History of tubal ligation Hx of cataract surgery Hx of cholecystectomy Hx of colonoscopy Hx of tonsillectomy Family History Family History Father Throat cancer Heart disease CVD (cardiovascular disease) Mother Stomach cancer Type 2 diabetes mellitus Arthritis of knee Hypertension Social History Social History Household Members: None Alcohol intake: never Smoking Status: Never smoker Second Hand Smoke Exposure: No Use of substances other than those prescribed or required for medical reasons: No Advance Directives: No Advance Directives Information Provided: No Current occupational status: retired Current occupation: right handed Physical Exam Vital Signs: Vital Signs: Last Vital Signs Temp 98.6 F 06/05/20 14:18 Pulse 72 06/05/20 14:18 Resp 16 06/05/20 14:18 BP 163/75 H 06/05/20 14:18 Pulse Ox 99 06/05/20 14:18 Body Mass Index 38.9 vital signs have been reviewed as normal and appeared to be correct. Blood pressure normal. Heart rate normal. Respiration rate normal. Temperature normal. Oxygen saturation normal. Appearance: Alert. Oriented X3. No acute distress. Head: Normal external exam. Normocephalic. Atraumatic. Eyes: PERRLA. EOMI. Conjunctiva and sclera normal. Eyelids normal. ENT: Pharynx normal. Uvula midline. Moist mucous membranes. Neck: Normal inspection. Neck supple. FROM. No adenopathy. Thyroid Normal. No meningeal signs. No neck mass noted. CVS: Normal heart rate and rhythm. Heart sound normal. No murmurs noted. Pulses normal throughout. Respiratory: No respiratory distress. Painless inspiration. Breath sounds normal. No wheezes/rales/rhonchi noted. Chest nontender. No accessory muscle usage noted or decreased air movement noted. Back: Full range of motion noted. Skin: Skin warm and dry. Normal skin color. Normal skin turgor. No rashes/lesions/lacerations noted. Extremities: Pt c ttp of left elbow at the olecranon process c limited ROM on flexion and extension. No laxity noted. No protrusion of the ORIF. The suture site appears normal no signs of infection/fluctuance noted. Otherwise Extremities exhibit normal range of motion and nontender. Neuro: Oriented X 3. No motor deficit. No sensory deficit. Reflexes normal. Course Course Course Narrative: 75-year-old female presenting to the ED with worsening left elbow pain had an ORIF by Dr. Da Silva on 05/01/2020. Imaging obtained and revealed the 2 orthopedic pins transversing the [place] fracture appears mildly retracted when compared to lateral view on 05/14/2020 although the fracture alignment is stable no destructive processes noted. Therefore I consulted with Dr. Da Silva and Portillo and they reported that due to the pain and not coming through the skin the patient can receive any follow-up with them next week as she has an appointment with June 11 and Rekha is in here sooner than that. Therefore will DC home with symptomatic treatment along with instructions return if any new or worsening symptoms and to follow up with Dr. Da Silva as scheduled on June 11 I explained to the daughter as well in the waiting room and they both understand and agree with plan. MDM - Extremity (Nontraumatic) Imaging Data Left elbow pain: Attestation: I personally reviewed and interpreted this imaging study as follows: Radiologist's impression: FINDINGS: Olecranon fracture is reduced with 2 pins and wire. The skin bernie are no longer present. The 2 orthopedic pins appear mildly retracted from prior study 05/14/2020, one pin by 8 mm and other pin by 3 mm when compared with prior lateral view 05/14/2020. Fracture fragments are in near-anatomic alignment stable. The hardware is otherwise intact. No fracture or destructive process or osteolysis. No periostitis. XR/XR elbow LT min 3V IMPRESSION: The 2 orthopedic pins traversing the olecranon fracture appear mildly retracted when compared with lateral view 05/14/2020. Fracture alignment is stable. No destructive process. Discharge Plan Discharge Clinical Impression: Painful orthopaedic hardware Patient Disposition: Home, Self-Care Instructions: ORIF (DC) Prescriptions: New acetaminophen [Tylenol Extra Strength] 500 mg tablet 1,000 mg PO QID PRN (Reason: fever or pain) Qty: 14 RF: 0 oxycodone 5 mg tablet 5 mg PO BID PRN (Reason: pain) Qty: 10 RF: 0 ibuprofen 800 mg tablet 600 mg PO Q8H PRN (Reason: pain) Qty: 14 RF: 0 No Action hydrochlorothiazide 12.5 mg tablet 12.5 mg PO DAILY 90 Days Qty: 90 RF: 0 oxycodone 10 mg tablet 10 mg PO Q6H PRN (Reason: pain) 7 Days Qty: 28 RF: 0 losartan 25 mg tablet 25 mg PO DAILY 90 Days Qty: 90 RF: 3 pregabalin [Lyrica] 100 mg capsule 100 mg PO BEDTIME RF: 0 glipizide 5 mg tablet extended release 24hr 5 mg PO DAILY RF: 0 ferrous sulfate 325 mg (65 mg iron) tablet 325 mg PO DAILY RF: 0 metoprolol succinate 50 mg tablet extended release 24 hr 50 mg PO DAILY RF: 0 omeprazole magnesium [Prilosec OTC] 20 mg tablet,delayed release (DR/EC) 20 mg PO DAILY RF: 0 (DME) lancets [FreeStyle Lancets] 28 gauge misc See Rx Instructions .ROUTE .MEDSUPPLY Qty: 100 RF: 0 (DME) FreeStyle Test Strip See Rx Instructions .ROUTE .MEDSUPPLY Qty: 10 RF: 0 atorvastatin 40 mg tablet 40 mg PO BEDTIME RF: 0 levothyroxine [Levoxyl] 75 mcg tablet 75 mcg PO DAILY 90 Days Qty: 90 RF: 3 Lantus Solostar U-100 Insulin 100 unit/mL (3 mL) insulin pen 30 unit subcut BID RF: 0 aspirin 81 mg tablet,delayed release (DR/EC) 81 mg PO DAILY RF: 0 simvastatin 40 mg tablet 40 mg PO BEDTIME RF: 0 metformin 500 mg tablet extended release 24 hr 1,000 mg PO BID RF: 0 calcium carbonate-vitamin D3 600 mg(1,500mg) -400 unit tablet 1 tab PO BID RF: 0 cholecalciferol (vitamin D3) 50 mcg (2,000 unit) capsule 50 mcg PO DAILY RF: 0 multivitamin with folic acid 400 mcg tablet 1 tab PO DAILY RF: 0 Citrucel 500 mg tablet 500 mg PO BID Qty: 60 RF: 5 Referrals: Aisha Da Silva MD [Physician] - 06/11/20 (As scheduled) Print Language: Martiniquais
--- NOTE | 2020-06-05 15:24 | PC.NURSE ---
PA CONSULTING WITH ORTHO.
== END 2020-06-05 15:47 | disposition home or self-care (01) ==
PROVIDERS: Emergency Provider Emergency Medicine; PCP Nurse Practitioner Family
DX: T84.84XA Pain due to internal orthopedic prosthetic devices, implants and grafts, initial encounter (principal); X58.XXXA Exposure to other specified factors, initial encounter; E11.9 Type 2 diabetes mellitus without complications; I10 Essential (primary) hypertension; E78.5 Hyperlipidemia, unspecified; Z86.16 Personal history of COVID-19; Z79.4 Long term (current) use of insulin; Z79.899 Other long term (current) drug therapy; Z96.698 Presence of other orthopedic joint implants
CPT/HCPCS: 73080; 99283; 99284

== ENCOUNTER 2020-06-11 | Outpatient (REF) | payer MEDICARE, SELFPAY | END 2020-06-11 00:01 | disposition home or self-care (01) | LOC: CF | PROVIDERS: PCP Nurse Practitioner Family; Visit Provider Orthopaedic Surgery | DX: S52.022D Displaced fracture of olecranon process without intraarticular extension of left ulna, subsequent encounter for closed fracture with routine healing (principal) | CPT/HCPCS: 99212 ==

== ENCOUNTER → 2020-07-14 11:37 | Outpatient (BNVA) | payer MEDICARE, SELFPAY | PROVIDERS: PCP Nurse Practitioner Family; Visit Provider Physician Assistant | DX: Z13.89 Encounter for screening for other disorder (principal) | CPT/HCPCS: Q3014 ==

== ENCOUNTER 2020-08-11 14:00 | Outpatient (RCR) | payer MEDICARE, SELFPAY | END 2020-09-17 11:27 | disposition other institution (70) | LOC: HO.OT 14:00 | PROVIDERS: Visit Provider Orthopaedic Surgery | DX: S52.023D Displaced fracture of olecranon process without intraarticular extension of unspecified ulna, subsequent encounter for closed fracture with routine healing (principal) | CPT/HCPCS: 97110; 97112; 97140; 97167; 97530 ==

== ENCOUNTER → 2020-08-14 12:55 | Outpatient (BNVA) | payer MEDICARE, SELFPAY | PROVIDERS: PCP Nurse Practitioner Family; Visit Provider Hospitalist | DX: J45.909 Unspecified asthma, uncomplicated (principal); R91.8 Other nonspecific abnormal finding of lung field; R06.00 Dyspnea, unspecified; I25.10 Atherosclerotic heart disease of native coronary artery without angina pectoris; I10 Essential (primary) hypertension; E11.9 Type 2 diabetes mellitus without complications; E78.5 Hyperlipidemia, unspecified; E03.9 Hypothyroidism, unspecified; Z88.0 Allergy status to penicillin; Z88.8 Allergy status to other drugs, medicaments and biological substances; Z20.822 Contact with and (suspected) exposure to COVID-19; Z90.710 Acquired absence of both cervix and uterus; Z79.84 Long term (current) use of oral hypoglycemic drugs; Z79.899 Other long term (current) drug therapy | CPT/HCPCS: 99212 ==

== ENCOUNTER → 2020-08-29 11:37 | Outpatient (BNVA) | payer MEDICARE, SELFPAY | PROVIDERS: PCP Nurse Practitioner Family; Visit Provider Orthopaedic Surgery | DX: S52.022D Displaced fracture of olecranon process without intraarticular extension of left ulna, subsequent encounter for closed fracture with routine healing (principal) | CPT/HCPCS: Q3014 ==

== ENCOUNTER 2020-10-22 13:12 | Outpatient (REF) | payer MEDICARE, SELFPAY ==
--- NOTE | ~2020-10-22 | MM_ITS ---
EXAMINATION: MM SCREENING DIGITAL BREAST TOMOSYNTHESIS, BILATERAL CLINICAL INFORMATION: Screening. Asymptomatic. The lifetime risk of breast cancer based on the Tyrer-Cuzick Model is 2%. COMPARISON: Mammography: 04/02/2019, 03/23/2018, 01/07/2017 TECHNIQUE: Digital breast tomosynthesis is performed in both the craniocaudal and mediolateral oblique views along with computer-aided detection (CAD). Synthesized 2D images are generated from the tomosynthesis. Technologist notes patient study challenges, left arm and shoulder painful. Exam optimized to patient capabilities. FINDINGS: The breasts are almost entirely fatty (ACR BI-RADS breast composition Category a). There are no significant masses, abnormal calcifications, or other abnormalities. Background stromal markings are stable. Skin contours are smooth. No coarsening Mike's ligaments. MM/MM tomosynthesis screening BI IMPRESSION: No mammographic evidence of malignancy. ASSESSMENT: BI-RADS 1: Negative RECOMMENDATION: Routine annual mammography screening. This patient's information was entered into a reminder system with a target due date for their next mammogram.
== END 2020-10-22 13:13 | disposition home or self-care (01) ==
LOC: HO.MAMMO 13:12
PROVIDERS: PCP Registered Nurse Community Health; Visit Provider Registered Nurse Community Health
DX: Z12.31 Encounter for screening mammogram for malignant neoplasm of breast (principal)
CPT/HCPCS: 77063; 77067

== ENCOUNTER 2020-10-27 11:58 | Outpatient (REF) | payer MEDICARE, SELFPAY ==
--- NOTE | ~2020-10-27 | XR_ITS ---
EXAMINATION: XR KNEE, LEFT CLINICAL INFORMATION: Left knee effusion COMPARISON: Previous x-ray May 2016 TECHNIQUE: Four views of the left knee. FINDINGS: Bone alignment is normal. No fracture or dislocation is seen. There is arthritis at the medial femoral tibial and patellofemoral joints with joint space narrowing and osteophyte formation. There is an osteophyte at the quadriceps tendon insertion to the patella. There is a small joint effusion. XR/XR knee LT 4V IMPRESSION: Arthritis and small joint effusion.
== END 2020-10-27 11:59 | disposition home or self-care (01) ==
LOC: HO.XRAY 11:58
PROVIDERS: PCP Registered Nurse Community Health; Visit Provider Registered Nurse Community Health
DX: M25.462 Effusion, left knee (principal); M25.562 Pain in left knee
CPT/HCPCS: 73564

== ENCOUNTER → 2020-12-11 10:18 | Outpatient (BNVA) | payer MEDICARE, SELFPAY | PROVIDERS: PCP Nurse Practitioner Family; Visit Provider Physician Assistant | DX: Z12.11 Encounter for screening for malignant neoplasm of colon (principal) | CPT/HCPCS: 99212 ==

== ENCOUNTER 2020-12-18 10:28 | Emergency (ER) | payer MEDICARE, SELFPAY ==
--- NOTE | ~2020-12-18 | XR_ITS ---
EXAMINATION: XR RIGHT HIP AND PELVIS AND RIGHT KNEE CLINICAL INFORMATION: Pain. COMPARISON: Previous right knee x-ray May 2016 and right hip x-ray April 2015. TECHNIQUE: 1 view of the pelvis and 2 views of the right hip. 4 views of the right knee. FINDINGS: Pelvis and Right Hip: Bone alignment is normal. No fracture or dislocation is seen. There is evidence of mild arthritis at both hip joints with joint space narrowing and small osteophytes. There are degenerative changes of the visualized lower lumbar spine. Soft tissues are unremarkable. Right Knee: Bone alignment is normal. No fracture or dislocation is seen. There are small osteophytes seen at the medial femoral tibial and patellofemoral joints. There is a small joint effusion. XR/XR knee RT 3V IMPRESSION: PELVIS AND RIGHT HIP: Mild bilateral hip arthritis. RIGHT KNEE: Mild arthritis and small joint effusion.
--- NOTE | ~2020-12-18 | XR_ITS ---
EXAMINATION: XR RIGHT HIP AND PELVIS AND RIGHT KNEE CLINICAL INFORMATION: Pain. COMPARISON: Previous right knee x-ray May 2016 and right hip x-ray April 2015. TECHNIQUE: 1 view of the pelvis and 2 views of the right hip. 4 views of the right knee. FINDINGS: Pelvis and Right Hip: Bone alignment is normal. No fracture or dislocation is seen. There is evidence of mild arthritis at both hip joints with joint space narrowing and small osteophytes. There are degenerative changes of the visualized lower lumbar spine. Soft tissues are unremarkable. Right Knee: Bone alignment is normal. No fracture or dislocation is seen. There are small osteophytes seen at the medial femoral tibial and patellofemoral joints. There is a small joint effusion. XR/XR hip RT w PEL1V IMPRESSION: PELVIS AND RIGHT HIP: Mild bilateral hip arthritis. RIGHT KNEE: Mild arthritis and small joint effusion.
[2020-12-18 11:05] VITALS: BP 190/90; PULSE 80; RESP 18; TEMP 36; O2SAT 97; BMI 37.3
--- NOTE | 2020-12-18 11:23 | ED.LOWEXIN ---
HPI - Extremity Injury (Lower) General Chief Complaint: Extremity Injury, Lower Stated Complaint: PAIN R KNEE Time Seen by Provider: 12/18/20 11:23 Source: patient and family Mode of arrival: ambulatory Limitations: language barrier History of Present Illness HPI Narrative: 75 y/o female presenting with 3 weeks of nontraumatic right hip and knee pain for the last 3 weeks. She reports the pain comes from her lower back and shoots down into her right hip and down the back of her leg to the side of her right knee. She has had this pain before but mostly on the left side. She denies any recent injury or fall. She stated the pain is worse with movement. She has been taking Tylenol without improvement. Pain is making it hard for her to walk. No numbness, tingling, LE weakness or bladder/bowel incontinence. MD complaint: other (low back pain shooting into right leg) Onset (ago): week(s) (3) Type of Injury: unknown Place: home Severity: severe Relieving factors: immobilization and rest Exacerbating factors: weight bearing, movement and palpation Associated symptoms: able to partially bear weight Other symptoms: none Related Data Home Medications Medication Instructions Recorded Confirmed atorvastatin 40 mg tablet 40 mg PO BEDTIME 02/12/20 12/11/20 blood sugar diagnostic (FreeStyle #10 ea 02/12/20 12/11/20 Test) ferrous sulfate 325 mg (65 mg 325 mg PO DAILY 02/12/20 12/11/20 iron) tablet glipizide 5 mg tablet, extended 5 mg PO DAILY 02/12/20 12/11/20 release 24 hr lancets 28 gauge (FreeStyle #100 ea 02/12/20 12/11/20 Lancets) metoprolol succinate 50 mg 50 mg PO DAILY 02/12/20 12/11/20 tablet,extended release 24 hr omeprazole magnesium 20 mg 20 mg PO DAILY 02/12/20 12/11/20 tablet,delayed release (Prilosec OTC) pregabalin 100 mg capsule (Lyrica) 100 mg PO BEDTIME 02/12/20 12/11/20 aspirin 81 mg tablet,delayed 81 mg PO DAILY 03/18/20 12/11/20 release calcium carbonate 600 mg (1,500 1 tab PO BID 03/18/20 12/11/20 mg)-vitamin D3 400 unit tablet cholecalciferol (vitamin D3) 50 50 mcg PO DAILY 03/18/20 12/11/20 mcg (2,000 unit) capsule metformin 500 mg tablet,extended 1,000 mg PO BID 03/18/20 12/11/20 release 24 hr simvastatin 40 mg tablet 40 mg PO BEDTIME 03/18/20 12/11/20 insulin glargine 100 unit/mL (3 30 unit SUBCUT BID ml 05/19/20 12/11/20 mL) subcutaneous pen (Lantus Solostar U-100 Insulin) multivitamin with folic acid 400 1 tab PO DAILY tab 05/19/20 12/11/20 mcg tablet albuterol sulfate 90 mcg/actuation 0 mcg INHALATION 07/14/20 12/11/20 aerosol inhaler cyanocobalamin (vitamin B-12) 1,000 mcg PO DAILY 07/14/20 12/11/20 1,000 mcg tablet docusate sodium 100 mg capsule 100 mg PO BID 07/14/20 12/11/20 fluticasone propionate 110 2 puff INHALATION BID 07/14/20 12/11/20 mcg/actuation HFA aerosol inhaler fluticasone propionate 50 spray INTRANASAL 07/14/20 12/11/20 mcg/actuation nasal spray,suspension melatonin 5 mg tablet 5 mg PO BEDTIME 07/14/20 12/11/20 Previous Rx's Medication Instructions Recorded levothyroxine 75 mcg tablet 75 mcg PO DAILY 90 Days #90 tab 02/14/20 (Levoxyl) acetaminophen 500 mg tablet 1,000 mg PO QID PRN #14 tab 06/05/20 (Tylenol Extra Strength) ibuprofen 800 mg tablet 600 mg PO Q8H PRN #14 tab 06/05/20 losartan 25 mg tablet 25 mg PO DAILY 90 Days #90 tab 09/24/20 hydrochlorothiazide 12.5 mg tablet 12.5 mg PO DAILY 90 Days #90 tab 11/24/20 methylcellulose (laxative) 500 mg 500 mg PO BID #60 tab 12/08/20 tablet (Citrucel) bisacodyl 5 mg tablet,delayed 10 mg PO ONCE 1 Days #2 tab 12/11/20 release (Dulcolax (bisacodyl)) polyethylene glycol 3350 17 238 g PO ONCE 1 Days #238 g 12/11/20 gram/dose oral powder (Miralax) cyclobenzaprine 5 mg tablet 5 mg PO TID PRN #14 tab 12/18/20 ibuprofen 600 mg tablet 600 mg PO Q8H PRN #14 tab 12/18/20 lidocaine 5 % topical patch 1 patch TOPICAL DAILY #15 ea 12/18/20 (Lidoderm) Allergies Allergy/AdvReac Type Severity Reaction Status Date / Time penicillin G [Penicillin G] Allergy Mild RASH/HIVES Verified 12/11/20 10:24 lisinopril Allergy Unknown itching Verified 12/11/20 10:24 penicillin V Allergy Unknown Unknown Verified 12/11/20 10:24 Review of Systems Review of Systems: Constitutional: No Fever, No Chills Cardiovascular: No Chest Pain, No SOB Respiratory: No Cough, No Sputum Gastrointestinal: No Nausea, No Vomiting, No Diarrhea, No abdominal Pain Genitourinary: No Dysuria, No Urinary Frequency, No Hematuria, No incontinence Musculoskeletal: + joint pain, + Myalgias Skin: No Skin Lesions, No rash Neuro: No Weakness, No Numbness, No Dizziness, No Headache Heme/Lymph: No Bruising, No Lymphadenopathy PMFSH Past Medical History Medical History Asthma Broken arm CAD (coronary artery disease) Chronic constipation Diabetes mellitus Dysphagia Dyspnea HTN (hypertension) Hyperlipidemia Hypothyroidism Non-toxic multinodular goiter Surgical History History of carpal tunnel release History of partial hysterectomy History of surgery on arm History of tubal ligation Hx of cataract surgery Hx of cholecystectomy Hx of colonoscopy Hx of tonsillectomy Family History Family History Father Throat cancer Heart disease CVD (cardiovascular disease) Mother Stomach cancer Type 2 diabetes mellitus Arthritis of knee Hypertension Social History Social History Household Members: None Alcohol intake: never Second Hand Smoke Exposure: No Advance Directives: Yes Advance Directives Information Provided: Yes Advance Directives on File: No Current occupational status: retired Current occupation: right handed Physical Exam Vital Signs: Vital Signs: Last Vital Signs Temp 96.8 F 12/18/20 11:05 Pulse 64 12/18/20 14:30 Resp 18 12/18/20 14:30 BP 146/69 H 12/18/20 14:30 Pulse Ox 95 12/18/20 14:30 Body Mass Index 37.3 Appearance: Alert. Oriented X3. No acute distress. Eyes: Pupils equal, round and reactive to light. ENT: Pharynx normal. Neck: Normal inspection. Neck supple. CVS: Normal heart rate and rhythm. Pulses normal. Respiratory: No respiratory distress. Breath sounds normal. Abdomen: Soft and nontender. +BS x4 Skin: Skin warm and dry. Normal skin color. Normal skin turgor. No rashes. Back: normal inspection, lower right lumbar tenderness with +SI joint tenderness/ Extremities: Mild bilateral knee swelling without tenderness, erythema or warmth. Neuro: Oriented X 3. No motor deficit. No sensory deficit. +DTRs. Ambulates with a steady gait with cane assist Course Course Course Narrative: 75 y/o female presenting with right lower back pain shooting into her right hip and leg down to her knee. Clinical presentation and exam are consistent with sciatica. Will give trial of a NSAID and a low dose muscle relaxer and reassess. Xr's ordered. Reevaluation(s) Reevaluation #1: Pain improved after the flexeril and motrin. Reevaluation #2: XRs showing mild arthritis and small joint effusion. No erythema or warmth of the knee to suggest infection. Recommend GEOVANNY and f/u wtih PCP. Will d/c with rx of motrin and flexeril. Critical Care Time Critical Care Time Critical Care Time: No Discharge Plan Discharge Clinical Impression: Sciatic pain Patient Disposition: Home, Self-Care Instructions: Sciatica (ED), Swollen Knee Joint (ED) Additional Instructions: Your x-rays showed mild arthritis and small joint effusion in the right knee. Recommend GEOVANNY wrap for compression and support. No bending, lifting or twisting with your back pain. Use ice several times per day for 20 minutes at a time for the next 48 hours and then change to heat. Take medications as prescribed to help with pain and discomfort. Follow up with your Primary Care Doctor this week. If your pain worsens, if you develop new numbness, tingling, weakness, loss of function or incontinence call 911 or come back to the ER right away for evaluation. Prescriptions: New lidocaine [Lidoderm] 5 % adhesive patch,medicated 1 patch topical DAILY Qty: 15 RF: 0 ibuprofen 600 mg tablet 600 mg PO Q8H PRN (Reason: pain) Qty: 14 RF: 0 cyclobenzaprine 5 mg tablet 5 mg PO TID PRN (Reason: muscle spasm) Qty: 14 RF: 0 No Action losartan 25 mg tablet 25 mg PO DAILY 90 Days Qty: 90 RF: 3 hydrochlorothiazide 12.5 mg tablet 12.5 mg PO DAILY 90 Days Qty: 90 RF: 3 Citrucel 500 mg tablet 500 mg PO BID Qty: 60 RF: 1 acetaminophen [Tylenol Extra Strength] 500 mg tablet 1,000 mg PO QID PRN (Reason: fever or pain) Qty: 14 RF: 0 ibuprofen 800 mg tablet 600 mg PO Q8H PRN (Reason: pain) Qty: 14 RF: 0 pregabalin [Lyrica] 100 mg capsule 100 mg PO BEDTIME RF: 0 glipizide 5 mg tablet extended release 24hr 5 mg PO DAILY RF: 0 ferrous sulfate 325 mg (65 mg iron) tablet 325 mg PO DAILY RF: 0 metoprolol succinate 50 mg tablet extended release 24 hr 50 mg PO DAILY RF: 0 omeprazole magnesium [Prilosec OTC] 20 mg tablet,delayed release (DR/EC) 20 mg PO DAILY RF: 0 (DME) lancets [FreeStyle Lancets] 28 gauge misc See Rx Instructions .ROUTE .MEDSUPPLY Qty: 100 RF: 0 (DME) FreeStyle Test Strip See Rx Instructions .ROUTE .MEDSUPPLY Qty: 10 RF: 0 atorvastatin 40 mg tablet 40 mg PO BEDTIME RF: 0 levothyroxine [Levoxyl] 75 mcg tablet 75 mcg PO DAILY 90 Days Qty: 90 RF: 3 Lantus Solostar U-100 Insulin 100 unit/mL (3 mL) insulin pen 30 unit subcut BID RF: 0 aspirin 81 mg tablet,delayed release (DR/EC) 81 mg PO DAILY RF: 0 simvastatin 40 mg tablet 40 mg PO BEDTIME RF: 0 metformin 500 mg tablet extended release 24 hr 1,000 mg PO BID RF: 0 calcium carbonate-vitamin D3 600 mg(1,500mg) -400 unit tablet 1 tab PO BID RF: 0 cholecalciferol (vitamin D3) 50 mcg (2,000 unit) capsule 50 mcg PO DAILY RF: 0 multivitamin with folic acid 400 mcg tablet 1 tab PO DAILY RF: 0 cyanocobalamin (vitamin B-12) 1,000 mcg tablet 1,000 mcg PO DAILY RF: 0 docusate sodium 100 mg capsule 100 mg PO BID RF: 0 albuterol sulfate 90 mcg/actuation HFA aerosol inhaler 0 mcg inhalation RF: 0 fluticasone propionate 50 mcg/actuation spray,suspension intranasal RF: 0 Flovent HFA 110 mcg/actuation HFA aerosol inhaler 2 puff inhalation BID RF: 0 melatonin 5 mg tablet 5 mg PO BEDTIME RF: 0 bisacodyl [Dulcolax (bisacodyl)] 5 mg tablet,delayed release (DR/EC) 10 mg PO ONCE 1 Days Qty: 2 RF: 0 polyethylene glycol 3350 [Miralax] 17 gram/dose powder 238 g PO ONCE 1 Days Qty: 238 RF: 0
[2020-12-18] MEDS: Ibuprofen 600 MG TABLET PO (12:56)
[2020-12-18] MEDS: Cyclobenzaprine HCl 5 MG TABLET PO (12:56)
[2020-12-18 13:54] VITALS: RESP 18
[2020-12-18 14:30] VITALS: BP 146/69; PULSE 64; RESP 18; O2SAT 95
== END 2020-12-18 15:10 | disposition home or self-care (01) ==
PROVIDERS: Emergency Provider Emergency Medicine
DX: M54.41 Lumbago with sciatica, right side (principal); M16.0 Bilateral primary osteoarthritis of hip; M25.461 Effusion, right knee; I10 Essential (primary) hypertension; E78.5 Hyperlipidemia, unspecified; E11.9 Type 2 diabetes mellitus without complications; Z79.4 Long term (current) use of insulin; Z79.82 Long term (current) use of aspirin; Z79.02 Long term (current) use of antithrombotics/antiplatelets; Z79.899 Other long term (current) drug therapy
CPT/HCPCS: 73502; 73562; 99283; 99284

== ENCOUNTER 2020-12-22 10:28 | Outpatient (REF) | payer MEDICARE, SELFPAY ==
--- NOTE | ~2020-12-22 | US_ITS ---
EXAMINATION: US THYROID CLINICAL INFORMATION: Nontoxic multinodular goiter. COMPARISON: Ultrasound soft tissue head/neck thyroid dated 12/31/2019 and 11/16/2018. TECHNIQUE: Linear transducer grayscale and color Doppler examination with attention to the region of the thyroid. FINDINGS: SIZE: Measurements of the thyroid lobes and nodules are given in sagittal, anteroposterior and transverse dimensions respectively. Right Thyroid Lobe: 5.4 x 1.7 x 1.8 cm, volume 8.6 mL. Previously 5.0 x 1.5 x 2.0 cm, volume 7.8 mL. Parenchyma: The gland echotexture is heterogeneous. Thyroid vascularity is increased. Left Thyroid Lobe: 4.6 x 1.9 x 1.8 cm, volume 8.2 mL. Previously 4.6 x 1.6 x 1.8 cm, volume 6.9 mL. Parenchyma: The gland echotexture is heterogeneous. Thyroid vascularity is increased. Isthmus: 0.7 cm in maximum AP dimension. Previously 0.7 cm. Estimated total number of nodules greater than or equal to 1 cm: 1. Icer Machine nodules are described as follows: 1. Location: Right inferior. Size: 0.4 x 0.5 x 0.4 cm, volume 0.04 mL. Previously: Not seen previously. Nodule characteristics: Composition: Solid (2). Echogenicity: Hypoechoic (2). Shape: Not taller than wide (0). Margins: Smooth (0). Echogenic Foci: None (0). ACR TI-RADS total points: 4 ACR TI-RADS category: 4 2. Location: Right inferior. Size: 0.4 x 0.4 x 0.4 cm, volume 0.03 mL. Previously: 0.5 x 0.5 x 0.4 cm, volume 0.05 mL. Nodule characteristics: Composition: Solid (2). Echogenicity: Hypoechoic (2). Shape: Not taller than wide (0). Margins: Smooth (0). Echogenic Foci: None (0). ACR TI-RADS total points: 4 Previous: n/a ACR TI-RADS category: 4 Previous: n/a Significant change in size (>/= 20% in 2 dimensions and minimal increase of 2 mm or 50% or greater increase in volume): Change in features: None Change in ACR TI-RADS risk category: n/a 3. Location: Left mid. Size: 1.0 x 1.0 x 0.6 cm, volume 0.3 mL. Previously: 1.5 x 0.9 x 1.8 cm, volume 1.3 mL. Nodule characteristics: Composition: Solid (2). Echogenicity: Hyperechoic (1). Shape: Not taller than wide (0). Margins: Smooth (0). Echogenic Foci: None (0). ACR TI-RADS total points: 3 Previous: n/a ACR TI-RADS category: 3 Previous: n/a Significant change in size (>/= 20% in 2 dimensions and minimal increase of 2 mm or 50% or greater increase in volume): Change in features: None Change in ACR TI-RADS risk category: n/a 4. Location: Left superior. Size: 0.7 x 0.7 x 0.9 cm, volume 0.2 mL. Previously: 0.7 x 1.2 x 0.9 cm, volume 0.4 mL. Nodule characteristics: Composition: Solid (2). Echogenicity: Hyperechoic (1). Shape: Not taller than wide (0). Margins: Smooth (0). Echogenic Foci: None (0). ACR TI-RADS total points: 3 Previous: n/a ACR TI-RADS category: 3 Previous: n/a Significant change in size (>/= 20% in 2 dimensions and minimal increase of 2 mm or 50% or greater increase in volume): None Change in features: None Change in ACR TI-RADS risk category: n/a NODES: No lymphadenopathy is seen in the tissue surrounding the thyroid gland. US/US thyroid IMPRESSION: Nonsuspicious subcentimeter bilateral thyroid nodules as described above with no major change compared to previous ultrasound exam 12/31/2019. ACR TI-RADS RECOMMENDATION REFERENCE: Ultrasound-guided fine-needle aspiration, followup ultrasound, no further follow up. * TR1 (0 point) and TR 2 (2 points): No FNA or follow up * TR3 (3 points): FNA if more than or equal to 2.5 cm in maximum dimension, followup ultrasound in 1, 3 and 5 years if 1.5 to 2.4 cm in maximum dimension. * TR4 (4-6 points): FNA if more than or equal to 1.5 cm in maximum dimension, followup ultrasound in 1, 2, 3 and 5 years if 1 to 1.4 cm in maximum dimension. * TR5 (more than or equal to 7 points): FNA if more than or equal to 1 cm in maximum dimension, followup ultrasound every year for 5 years if 0.5 to 0.9 cm in maximum dimension. * TR3, TR4 or TR5 nodules that are below the size threshold for follow up receive no follow up.
== END 2020-12-22 10:29 | disposition home or self-care (01) ==
LOC: HO.US 10:28
PROVIDERS: Visit Provider Internal Medicine
DX: E04.2 Nontoxic multinodular goiter (principal)
CPT/HCPCS: 76536

== ENCOUNTER 2020-12-26 07:22 | Outpatient (REF) | payer MEDICARE, SELFPAY ==
--- NOTE | ~2020-12-26 | XR_ITS ---
EXAMINATION: BILATERAL KNEE X-RAY CLINICAL INFORMATION: Pain COMPARISON: Previous x-ray of the right knee December 2020 and left knee October 2020 TECHNIQUE: Bilateral sunrise view of the knees FINDINGS: No fracture or dislocation is seen. There is lateral arthritis at the femoral tibial joints, right greater than left. XR/XR knee LT 1V IMPRESSION: Bilateral femoral tibial joint arthritis, right greater than left.
--- NOTE | ~2020-12-26 | XR_ITS ---
EXAMINATION: BILATERAL KNEE X-RAY CLINICAL INFORMATION: Pain COMPARISON: Previous x-ray of the right knee December 2020 and left knee October 2020 TECHNIQUE: Bilateral sunrise view of the knees FINDINGS: No fracture or dislocation is seen. There is lateral arthritis at the femoral tibial joints, right greater than left. XR/XR knee RT 1V IMPRESSION: Bilateral femoral tibial joint arthritis, right greater than left.
== END 2020-12-26 07:23 | disposition home or self-care (01) ==
LOC: HO.HOSX 07:22
PROVIDERS: Visit Provider Physician Assistant
DX: M17.0 Bilateral primary osteoarthritis of knee (principal); M54.16 Radiculopathy, lumbar region
CPT/HCPCS: 20610; 73560; 99202; J1020

== ENCOUNTER → 2021-01-12 14:22 | Outpatient (BNVA) | payer MEDICARE, SELFPAY | PROVIDERS: Visit Provider Internal Medicine | DX: M54.16 Radiculopathy, lumbar region (principal) | CPT/HCPCS: 99202 ==

== ENCOUNTER 2021-01-27 11:53 | Day surgery (SDC) | payer MEDICARE, SELFPAY ==
[2021-01-22 09:33] VITALS: BMI 37.3
--- NOTE | 2021-01-26 08:45 | HO.ANESPROP2 ---
Documented by User: Noelle Rodriguez NP 01/26/21 08:48 HPI - Anesthesia Eval Consult details Narrative: 75yo F for Colonoscopy Yearly cardiology visits - last 03/2020 - stable without symptoms, known CAD, medically managed PMFSH Active Problems Active Problems: All Active Problems (Updated 01/22/21 @ 09:34 by Dahlia Mix RN) COVID-19 (Acute) Closed fracture of left olecranon process (Acute) Closed fracture of olecranon process of ulna with routine healing (Acute) Abnormality of lung on CXR (Acute) Encounter for screening colonoscopy (Acute) Osteoarthritis of knees, bilateral (Acute) Lumbar back pain with radiculopathy affecting right lower extremity (Acute) Asthma (Acute) Chronic constipation (Acute) CAD (coronary artery disease) (Acute) HTN (hypertension) (Acute) Hyperlipidemia (Acute) Diabetes mellitus (Acute) Dyspnea (Acute) Dysphagia (Acute) Non-toxic multinodular goiter (Acute) Hypothyroidism (Acute) Past Medical History Medical History (Updated 01/22/21 @ 09:34 by Dahlia Mix RN) Asthma Broken arm CAD (coronary artery disease) Chronic constipation Diabetes mellitus Dysphagia Dyspnea History of COVID-19 HTN (hypertension) Hyperlipidemia Hypothyroidism Non-toxic multinodular goiter Family History Family History Father Throat cancer Heart disease CVD (cardiovascular disease) Mother Stomach cancer Type 2 diabetes mellitus Arthritis of knee Hypertension Surgical History Surgical History (Updated 01/22/21 @ 09:24 by Dahlia Mix RN) History of carpal tunnel release History of partial hysterectomy History of surgery on arm History of tubal ligation Hx of cataract surgery Hx of cholecystectomy Hx of colonoscopy Hx of elbow surgery Hx of tonsillectomy Social History Social History Household Members: None Alcohol intake: never Second Hand Smoke Exposure: No Advance Directives: No Advance Directives Information Provided: Yes Current occupational status: retired Current occupation: right handed Meds Allergies Allergy/AdvReac Type Severity Reaction Status Date / Time lisinopril Allergy Intermediate itching Verified 01/22/21 09:28 Penicillins Allergy Intermediate rash/hives Verified 01/22/21 09:28 Home Medications Medication Instructions Recorded Confirmed Last Taken Type atorvastatin 40 mg tablet 40 mg PO BEDTIME 02/12/20 01/22/21 Unknown History blood sugar diagnostic (FreeStyle #10 ea 02/12/20 01/12/21 Unknown History Test) ferrous sulfate 325 mg (65 mg 325 mg PO DAILY 02/12/20 01/22/21 Unknown History iron) tablet glipizide 5 mg tablet, extended 5 mg PO DAILY 02/12/20 01/22/21 Unknown History release 24 hr lancets 28 gauge (FreeStyle #100 ea 02/12/20 01/12/21 Unknown History Lancets) metoprolol succinate 50 mg 50 mg PO DAILY 02/12/20 01/22/21 Unknown History tablet,extended release 24 hr omeprazole magnesium 20 mg 20 mg PO DAILY 02/12/20 01/22/21 Unknown History tablet,delayed release (Prilosec OTC) pregabalin 100 mg capsule (Lyrica) 100 mg PO BEDTIME 02/12/20 01/22/21 Unknown History aspirin 81 mg tablet,delayed 81 mg PO DAILY 03/18/20 01/22/21 Unknown History release calcium carbonate 600 mg (1,500 1 tab PO BID 03/18/20 01/22/21 Unknown History mg)-vitamin D3 400 unit tablet cholecalciferol (vitamin D3) 50 50 mcg PO DAILY 03/18/20 01/22/21 Unknown History mcg (2,000 unit) capsule metformin 500 mg tablet,extended 1,000 mg PO BID 03/18/20 01/22/21 Unknown History release 24 hr simvastatin 40 mg tablet 40 mg PO BEDTIME 03/18/20 01/22/21 Unknown History insulin glargine 100 unit/mL (3 30 unit SUBCUT BID ml 05/19/20 01/22/21 Unknown History mL) subcutaneous pen (Lantus Solostar U-100 Insulin) multivitamin with folic acid 400 1 tab PO DAILY tab 05/19/20 01/22/21 Unknown History mcg tablet cyanocobalamin (vitamin B-12) 1,000 mcg PO DAILY 07/14/20 01/22/21 Unknown History 1,000 mcg tablet docusate sodium 100 mg capsule 100 mg PO BID 07/14/20 01/22/21 Unknown History fluticasone propionate 110 2 puff INHALATION BID 07/14/20 01/22/21 Unknown History mcg/actuation HFA aerosol inhaler fluticasone propionate 50 1 spray INTRANASAL DAILY 07/14/20 01/22/21 Unknown History mcg/actuation nasal spray,suspension melatonin 5 mg tablet 5 mg PO BEDTIME 07/14/20 01/22/21 Unknown History albuterol sulfate 90 mcg/actuation 2 inh INHALATION Q6-8H g 01/12/21 01/22/21 Unknown History aerosol inhaler Exam Exam Date and Time: January 26, 2021 0845 Height,Weight and Vital Signs: Height 5 ft 3 in Weight 95.708 kg Narrative Narrative: EKG 03/2020 normal sinus rhythm with LVH with anterior T-wave inversion is suggestive of anterior ischemia versus normal variant Assessment and Plan Assessment Anesthesia Assessment: Chart Reviewed Documented by User: Ron Lowry MD 01/27/21 12:29 [facility] Past Medical History Medical History (Updated 01/22/21 @ 09:34 by Dahlia Mix, HALEY) Asthma Broken arm CAD (coronary artery disease) Chronic constipation Diabetes mellitus Dysphagia Dyspnea History of COVID-19 HTN (hypertension) Hyperlipidemia Hypothyroidism Non-toxic multinodular goiter Family History Family History Father Throat cancer Heart disease CVD (cardiovascular disease) Mother Stomach cancer Type 2 diabetes mellitus Arthritis of knee Hypertension Surgical History Surgical History (Updated 01/22/21 @ 09:24 by Dahlia Mix RN) History of carpal tunnel release History of partial hysterectomy History of surgery on arm History of tubal ligation Hx of cataract surgery Hx of cholecystectomy Hx of colonoscopy Hx of elbow surgery Hx of tonsillectomy Social History Social History Household Members: None Alcohol intake: never Second Hand Smoke Exposure: No Advance Directives: No Advance Directives Information Provided: Yes Current occupational status: retired Current occupation: right handed Meds Allergies Allergy/AdvReac Type Severity Reaction Status Date / Time lisinopril Allergy Intermediate itching Verified 01/22/21 09:28 Penicillins Allergy Intermediate rash/hives Verified 01/22/21 09:28 Home Medications Medication Instructions Recorded Confirmed Last Taken Type atorvastatin 40 mg tablet 40 mg PO BEDTIME 02/12/20 01/22/21 Unknown History blood sugar diagnostic (FreeStyle #10 ea 02/12/20 01/12/21 Unknown History Test) ferrous sulfate 325 mg (65 mg 325 mg PO DAILY 02/12/20 01/22/21 Unknown History iron) tablet glipizide 5 mg tablet, extended 5 mg PO DAILY 02/12/20 01/22/21 Unknown History release 24 hr lancets 28 gauge (FreeStyle #100 ea 02/12/20 01/12/21 Unknown History Lancets) metoprolol succinate 50 mg 50 mg PO DAILY 02/12/20 01/22/21 Unknown History tablet,extended release 24 hr omeprazole magnesium 20 mg 20 mg PO DAILY 02/12/20 01/22/21 Unknown History tablet,delayed release (Prilosec OTC) pregabalin 100 mg capsule (Lyrica) 100 mg PO BEDTIME 02/12/20 01/22/21 Unknown History aspirin 81 mg tablet,delayed 81 mg PO DAILY 03/18/20 01/22/21 Unknown History release calcium carbonate 600 mg (1,500 1 tab PO BID 03/18/20 01/22/21 Unknown History mg)-vitamin D3 400 unit tablet cholecalciferol (vitamin D3) 50 50 mcg PO DAILY 03/18/20 01/22/21 Unknown History mcg (2,000 unit) capsule metformin 500 mg tablet,extended 1,000 mg PO BID 03/18/20 01/22/21 Unknown History release 24 hr simvastatin 40 mg tablet 40 mg PO BEDTIME 03/18/20 01/22/21 Unknown History insulin glargine 100 unit/mL (3 30 unit SUBCUT BID ml 05/19/20 01/22/21 Unknown History mL) subcutaneous pen (Lantus Solostar U-100 Insulin) multivitamin with folic acid 400 1 tab PO DAILY tab 05/19/20 01/22/21 Unknown History mcg tablet cyanocobalamin (vitamin B-12) 1,000 mcg PO DAILY 07/14/20 01/22/21 Unknown History 1,000 mcg tablet docusate sodium 100 mg capsule 100 mg PO BID 07/14/20 01/22/21 Unknown History fluticasone propionate 110 2 puff INHALATION BID 07/14/20 01/22/21 Unknown History mcg/actuation HFA aerosol inhaler fluticasone propionate 50 1 spray INTRANASAL DAILY 07/14/20 01/22/21 Unknown History mcg/actuation nasal spray,suspension melatonin 5 mg tablet 5 mg PO BEDTIME 07/14/20 01/22/21 Unknown History albuterol sulfate 90 mcg/actuation 2 inh INHALATION Q6-8H g 01/12/21 01/22/21 Unknown History aerosol inhaler Exam Airway Mallampati Class: III TM Dist: >3cm Neck ROM: Full Denture: Upper and Lower
[2021-01-27 12:40] VITALS: BP 139/58; PULSE 63; RESP 16; TEMP 36.1; O2SAT 97
[2021-01-27] MEDS: Lactated Ringers 1,000 ML 100 ML IVCONT (12:57)
[2021-01-27 13:07] LABS: Glucose, Whole Blood 94 mg/dL (60-115)
--- NOTE | 2021-01-27 13:28 | MHC.SHP ---
Pre-Procedural Eval Section A Date of Service: 01/27/21 The patient is an INPATIENT: No The History & Physical has been completed within 30 days and I have reviewed it.: No Section B Chief Complaint: screening Details of Present Illness: Colon cancer screening Relevant Family History (Specify if Yes): Yes Present Medications: see Short Stay Collaborative assessment Medical History: Significant History (Asthma Broken arm CAD (coronary artery disease) Chronic constipation Diabetes mellitus Dysphagia Dyspnea HTN (hypertension) Hyperlipidemia Hypothyroidism Non-toxic multinodular goiter) History of Previous Operations: Relevant previous surgery/procedure and date(s) (History of carpal tunnel release History of partial hysterectomy History of surgery on arm History of tubal ligation Hx of cataract surgery Hx of cholecystectomy Hx of colonoscopy Hx of tonsillectomy) Allergies: Allergies Allergy/AdvReac Type Severity Reaction Status Date / Time lisinopril Allergy Intermediate itching Verified 01/27/21 12:39 Penicillins Allergy Intermediate rash/hives Verified 01/27/21 12:39 Review of Systems Sugical H&P ROS: Negative: Constitution, Cardiovascular, Respiratory and Gastrointestinal Exam Surgical H&P Exam: Normal: Heart, Normal: Lungs and Normal: Abdomen Plan Diagnosis/Plan: Unchanged I have reviewed the history and physical and performed a pertinent physical examination on my patient. No changes have occurred unless specified.
--- NOTE | 2021-01-27 13:29 | PM.OP ---
Brief Operative Note Date of Service: 01/27/21 Pre-op diagnosis: Colon cancer screening Post-op diagnosis: other (Colon polyps, diverticulosis, hemorrhoids) Procedure: COLONOSCOPY TILL CECUM WITH BIOPSY AND SNARE POLYPECTOMY Consent: Indications for the procedure and potential complications of bleeding, perforation, reaction to medications and missed diagnosis were discussed with the patient and informed consent was obtained. Instrument: Olympus PCF H 190 L variable stiffness pediatric colonoscope Monitoring: Vital signs and clinical assessment, intermittent blood pressure monitoring, continuous EKG monitoring, Pulse oximetry and Carbon Dioxide monitoring were done throughout the procedure. Colon withdrawl time was 27 minutes. Procedure: The patient was placed in the left lateral decubitis position and pre-procedure medications were administered. After a digital rectal examination of the ano-rectum, the video colonoscope was inserted into the rectum and advanced through the colon to the cecum. The colonoscope was slowly withdrawn in a retrograde panoramic fashion and the colon mucosa was carefully examined including a retroflexed view of the rectum. Findings and interventions are described below. Procedure Difficulty: Without difficulty Findings: Terminal Ileum: Not evaluated Cecum: Normal Ascending Colon: A 2 cms sessile polyp in the proximal AC (over a fold) removed with a hot snare. Two 10-15 mm sessile polyps in the distal ascending colon removed with a hot snare. A 5-6 mm sessile polyp in the distal ascending colon removed with a cold biopsy Transverse Colon: A 12-15 mm sessile polyp removed with a hot snare Descending Colon: A 10 mm sessile polyp removed with a hot snare. Moderate diverticulosis Sigmoid Colon: Severe diverticulosis Rectum: Enlarged rectum due to presence of the rectocele. Ano-rectum: Small internal hemorrhoids Colon preparation: Excellent Impression and Post Procedure Diagnosis: Colonoscopy Findings: Six medium sized polyps removed Moderate to severe diverticulosis seen in the left colon Small hemorrhoids on retroflexed exam. Plan: Await pathology results Patient has an appointment on 02/11/21 in the GI Clinic with RUY Aguilar. Repeat Colonoscopy interval based on path results - in 2 years if multiple polyps are adenomatous and 5 years if polyps are hyperplastic. Above findings were reviewed with the patient and colon polyps and diverticulosis handouts were given in the discharge area Surgeon: Cris Nye MD Anesthesia: MAC (Leidy Carter CRNA) Was an Senior Staff Accountant used for this Procedure?: Yes Senior Staff Accountant: Marcela Chavez Estimated blood loss (mL): 0 Pathology: other (A. ASCENDING COLON POLYP B. DISTAL ASCENDING COLON POLYPS C. TRANSVERSE COLON POLYP D. DESCENDING COLON POLYP) Condition: stable Disposition: PACU
--- NOTE | 2021-01-27 13:30 | HO.ANESPROP2 ---
HPI - Anesthesia Eval Consult details Narrative: Colonoscopy PMFSH Active Problems Active Problems: All Active Problems (Updated 01/22/21 @ 09:34 by Dahlia Mix, HALEY) COVID-19 (Acute) Closed fracture of left olecranon process (Acute) Closed fracture of olecranon process of ulna with routine healing (Acute) Abnormality of lung on CXR (Acute) Encounter for screening colonoscopy (Acute) Osteoarthritis of knees, bilateral (Acute) Lumbar back pain with radiculopathy affecting right lower extremity (Acute) Asthma (Acute) Chronic constipation (Acute) CAD (coronary artery disease) (Acute) HTN (hypertension) (Acute) Hyperlipidemia (Acute) Diabetes mellitus (Acute) Dyspnea (Acute) Dysphagia (Acute) Non-toxic multinodular goiter (Acute) Hypothyroidism (Acute) Past Medical History Medical History Asthma Broken arm CAD (coronary artery disease) Chronic constipation Diabetes mellitus Dysphagia Dyspnea History of COVID-19 HTN (hypertension) Hyperlipidemia Hypothyroidism Non-toxic multinodular goiter Family History Family History Father Throat cancer Heart disease CVD (cardiovascular disease) Mother Stomach cancer Type 2 diabetes mellitus Arthritis of knee Hypertension Family history of problems with anesthesia: No Surgical History Surgical History History of carpal tunnel release History of partial hysterectomy History of surgery on arm History of tubal ligation Hx of cataract surgery Hx of cholecystectomy Hx of colonoscopy Hx of elbow surgery Hx of tonsillectomy History of Problems with Anesthesia: No Social History Social History Household Members: None Alcohol intake: never Patient Tobacco Use Status: Never used Tobacco Second Hand Smoke Exposure: No Use of substances other than those prescribed or required for medical reasons: No Are you DNR?: No Advance Directives: No Advance Directives Information Provided: Yes Current occupational status: retired Current occupation: right handed Meds Allergies Allergy/AdvReac Type Severity Reaction Status Date / Time lisinopril Allergy Intermediate itching Verified 01/27/21 12:39 Penicillins Allergy Intermediate rash/hives Verified 01/27/21 12:39 Active Medications: Current Medications Albuterol Sulfate (Albuterol Sulfate (0.083%) 2.5 Mg/3 Ml Vial.Neb) 2.5 mg INHALE ONCE PRN PRN Reason: Shortness of Breath/Wheezing Lactated Ringer's (Lr) 1,000 mls @ 100 mls/hr IVCONT .Q10H CHELSI Last Admin: 01/27/21 12:57 Dose: 100 mls/hr Documented by: Home Medications Medication Instructions Recorded Confirmed Last Taken Type atorvastatin 40 mg tablet 40 mg PO BEDTIME 02/12/20 01/22/21 Unknown History blood sugar diagnostic (FreeStyle #10 ea 02/12/20 01/12/21 Unknown History Test) ferrous sulfate 325 mg (65 mg 325 mg PO DAILY 02/12/20 01/22/21 Unknown History iron) tablet glipizide 5 mg tablet, extended 5 mg PO DAILY 02/12/20 01/22/21 Unknown History release 24 hr lancets 28 gauge (FreeStyle #100 ea 02/12/20 01/12/21 Unknown History Lancets) metoprolol succinate 50 mg 50 mg PO DAILY 02/12/20 01/22/21 Unknown History tablet,extended release 24 hr omeprazole magnesium 20 mg 20 mg PO DAILY 02/12/20 01/22/21 Unknown History tablet,delayed release (Prilosec OTC) pregabalin 100 mg capsule (Lyrica) 100 mg PO BEDTIME 02/12/20 01/22/21 Unknown History aspirin 81 mg tablet,delayed 81 mg PO DAILY 03/18/20 01/22/21 Unknown History release calcium carbonate 600 mg (1,500 1 tab PO BID 03/18/20 01/22/21 Unknown History mg)-vitamin D3 400 unit tablet cholecalciferol (vitamin D3) 50 50 mcg PO DAILY 03/18/20 01/22/21 Unknown History mcg (2,000 unit) capsule metformin 500 mg tablet,extended 1,000 mg PO BID 03/18/20 01/22/21 Unknown History release 24 hr simvastatin 40 mg tablet 40 mg PO BEDTIME 03/18/20 01/22/21 Unknown History insulin glargine 100 unit/mL (3 30 unit SUBCUT BID ml 05/19/20 01/22/21 Unknown History mL) subcutaneous pen (Lantus Solostar U-100 Insulin) multivitamin with folic acid 400 1 tab PO DAILY tab 05/19/20 01/22/21 Unknown History mcg tablet cyanocobalamin (vitamin B-12) 1,000 mcg PO DAILY 07/14/20 01/22/21 Unknown History 1,000 mcg tablet docusate sodium 100 mg capsule 100 mg PO BID 07/14/20 01/22/21 Unknown History fluticasone propionate 110 2 puff INHALATION BID 07/14/20 01/22/21 Unknown History mcg/actuation HFA aerosol inhaler fluticasone propionate 50 1 spray INTRANASAL DAILY 07/14/20 01/22/21 Unknown History mcg/actuation nasal spray,suspension melatonin 5 mg tablet 5 mg PO BEDTIME 07/14/20 01/22/21 Unknown History albuterol sulfate 90 mcg/actuation 2 inh INHALATION Q6-8H g 01/12/21 01/22/21 Unknown History aerosol inhaler Exam Exam Date and Time: January 27, 2021 1330 Height,Weight and Vital Signs: Height 5 ft 3 in Weight 95.708 kg Last Vital Signs Temp 97.0 F 01/27/21 12:40 Pulse 63 01/27/21 12:40 Resp 16 01/27/21 12:40 BP 139/58 L 01/27/21 12:40 Pulse Ox 97 01/27/21 12:40 Pertinent Lab Results Pertinent Lab Results: Laboratory Tests 01/27/21 12:43 POC Glucose 94 Airway Mallampati Class: III TM Dist: >3cm Neck ROM: Full Denture: Upper and Lower Loose/Missing/Broken Teeth: Yes Heart: [id number] Lungs: cta b/l Assessment and Plan Assessment Anesthesia Assessment: Anesthesia Plan Discussed and Chart Reviewed Final Anesthetic Review Family History of Problems with Anesthesia: No History of Problems with Anesthesia: No NPO: Yes ASA Class: III Final Preanesthetic Review: No Changes in Pt Med Stat, Meds/Allgs Chart Reviewed, Consent Obtained/Reviewed and Anes Risks/Benef Reviewed Patient Risk: Intermediate Procedure Risk: Low Assessment/Block/Sedation in SS: Assess/Block/Sedation-SS Anesthetic Plan Anesthetic Plan: MAC: and Agree w/ Assess. and Plan Disposition: Standard PACU
--- NOTE | 2021-01-27 13:36 | W.PM.OPN ---
Operative Note Operative Note Date of Service: 01/27/21 Narrative: Pre-op diagnosis:?Colon cancer screening Post-op diagnosis:?other (Colon polyps, diverticulosis, hemorrhoids) Procedure:? COLONOSCOPY TILL CECUM WITH BIOPSY AND SNARE POLYPECTOMY Consent: Indications for the procedure and potential complications of bleeding, perforation, reaction to medications and missed diagnosis were discussed with the patient and informed consent was obtained. Instrument: Olympus PCF H 190 L variable stiffness pediatric colonoscope Monitoring: Vital signs and clinical assessment, intermittent blood pressure monitoring, continuous EKG monitoring, Pulse oximetry and Carbon Dioxide monitoring were done throughout the procedure. Colon withdrawl time was 27 minutes. Procedure: The patient was placed in the left lateral decubitis position and pre-procedure medications were administered. After a digital rectal examination of the ano-rectum, the video colonoscope was inserted into the rectum and advanced through the colon to the cecum. The colonoscope was slowly withdrawn in a retrograde panoramic fashion and the colon mucosa was carefully examined including a retroflexed view of the rectum. Findings and interventions are described below. Procedure Difficulty: Without difficulty Findings: Terminal Ileum: Not evaluated Cecum:? Normal Ascending Colon:? A 2 cms sessile polyp in the proximal AC (over a fold) removed with a hot snare.? Two 10-15 mm sessile polyps in the distal ascending colon removed with a hot snare. A 5-6 mm sessile polyp in the distal ascending colon removed with a cold biopsy Transverse Colon:? A 12-15 mm sessile polyp removed with a hot snare Descending Colon:? A 10 mm sessile polyp removed with a hot snare. Moderate diverticulosis Sigmoid Colon:? Severe diverticulosis Rectum:? Enlarged rectum due to presence of the rectocele. Ano-rectum:? Small internal hemorrhoids Colon preparation: Excellent ? Impression and Post Procedure Diagnosis: Colonoscopy Findings: Six medium sized polyps removed Moderate to severe diverticulosis seen in the left colon Small hemorrhoids on retroflexed exam. Plan: Await pathology results Patient has an appointment on 02/11/21 in the GI Clinic with RUY Aguilar. Repeat Colonoscopy interval based on path results - in 2 years if multiple polyps are adenomatous and 5 years if polyps are hyperplastic. Above findings were reviewed with the patient and colon polyps and diverticulosis handouts were given in the discharge area Surgeon:?Cris Nye MD Anesthesia:?MAC (Leidy Carter CRNA) Was an Curtain Cleaner used for this Procedure?:?Yes Curtain Cleaner:?Marcela Chavez Estimated blood loss (mL):?0 Pathology:?other (A. ASCENDING COLON POLYP? B. DISTAL ASCENDING COLON POLYPS? C. TRANSVERSE COLON POLYP? D. DESCENDING COLON POLYP) Condition:?stable Disposition:?PACU
[2021-01-27 14:40] VITALS: BP 119/53; PULSE 73; RESP 20; TEMP 36.2; O2SAT 98
[2021-01-27 14:55] VITALS: BP 108/57; PULSE 80; RESP 20; TEMP 36.2; O2SAT 97
== END 2021-01-27 15:17 | disposition home or self-care (01) ==
PROVIDERS: Visit Provider Internal Medicine Gastroenterology
PROC: 0DJD8ZZ Inspection of Lower Intestinal Tract, Via Natural or Artificial Opening Endoscopic (ICD-10-PCS; CPT 45378; principal; 2021-01-27 13:10)
DX: Z12.11 Encounter for screening for malignant neoplasm of colon (principal); D12.2 Benign neoplasm of ascending colon; D12.3 Benign neoplasm of transverse colon; D12.4 Benign neoplasm of descending colon; K57.30 Diverticulosis of large intestine without perforation or abscess without bleeding; K64.8 Other hemorrhoids; K62.89 Other specified diseases of anus and rectum; N81.6 Rectocele; K59.04 Chronic idiopathic constipation; I25.10 Atherosclerotic heart disease of native coronary artery without angina pectoris; J45.998 Other asthma; I10 Essential (primary) hypertension; E11.9 Type 2 diabetes mellitus without complications; Z79.4 Long term (current) use of insulin; Z79.82 Long term (current) use of aspirin; Z79.899 Other long term (current) drug therapy; Z90.49 Acquired absence of other specified parts of digestive tract; Z88.0 Allergy status to penicillin; Z88.8 Allergy status to other drugs, medicaments and biological substances; Z86.16 Personal history of COVID-19
CPT/HCPCS: 45385; 45380; 82947; 88305; J2370

== ENCOUNTER 2021-02-04 06:14 | Outpatient (REF) | payer MEDICARE, SELFPAY ==
--- NOTE | ~2021-02-04 | FL_ITS ---
EXAMINATION: XR FLUOROSCOPY WITH IMAGES CLINICAL INFORMATION: M54.16 - Radiculopathy, lumbar region COMPARISON: Radiographs lumbar spine 01/07/2020. TECHNIQUE: Fluoroscopy performed by Dr. Brunson. Fluoroscopy time: 0.1 minutes DAP: 0.927 Gycm2 Images: 3 FINDINGS: There is a spinal needle at the L5-S1 interlaminar space. Epidural contrast is demonstrated. There is no vascular communication. There are degenerative changes again noted similar to the plain films. FL/FL guidance in treatment room IMPRESSION: Fluoroscopy for pain management procedure.
== END 2021-02-04 06:15 | disposition home or self-care (01) ==
LOC: HO.RADIR 06:14
PROVIDERS: Visit Provider Internal Medicine
DX: M54.16 Radiculopathy, lumbar region (principal)
CPT/HCPCS: 62323; J3300

== ENCOUNTER 2021-02-12 12:25 | Outpatient (REF) | payer MEDICARE, SELFPAY ==
--- NOTE | ~2021-02-12 | MM_ITS ---
EXAMINATION: BONE DENSITOMETRY CLINICAL INDICATION: Osteopenia. COMPARISON: Previous BD dated 02/01/2019 and baseline BD dated 08/02/2006. TECHNIQUE: Using a Fotofeedback DXA System (software version: 13.1) manufactured by [employer], dual-energy x-ray absorptiometry was performed of the lumbar spine and left hip. The images are of good technical quality. Summary results are attached. FINDINGS: AP SPINE L1-L4: Current: BMD 1.112 g/cm2, Z-score 0.3, T-score -0.6, normal, 4.5% decrease from previous, 1.3% decrease from baseline (<5% change is not significant). Prior: BMD 1.165 g/cm2. Baseline: BMD 1.127 g/cm2. LEFT FEMUR, NECK: Current: BMD 0.760 g/cm2, Z-score -0.7, T-score -2.0, osteopenia. Prior: BMD 0.787 g/cm2. Baseline: BMD 0.835 g/cm2. LEFT FEMUR, TOTAL: Current: BMD 0.906 g/cm2, Z-score 0.3, T-score -0.8, normal, 3.4% decrease from previous, 4.3% decrease from baseline (<5% change is not significant). Prior: BMD 0.938 g/cm2. Baseline: BMD 0.947 g/cm2. IDENTIFIED RISK FACTORS: Menopause, hysterectomy, osteoporosis, history of fracture (adult). HISTORY OF FRACTURE: Forearm. MEDICATIONS: Calcium supplements or multivitamin, vitamin D. MM/XR DEXA axial skeleton IMPRESSION: 1. DIAGNOSIS: Osteopenia based on the lowest T-score value of -2.0 in the femoral neck applying World Health Organization criteria. 2. 10-YEAR FRACTURE RISK PREDICTION, FRAX: Major osteoporotic fracture (clinical spine, forearm, hip or shoulder) 10.7%. Hip fracture 2.4%. 3. Treatment Recommendations: NOF guidelines recommend consideration for treatment in postmenopausal women and men age 50 and older presenting with the following: -A hip or vertebral (clinical or morphometric) fracture. -T-score less than or equal to -2.5 at the femoral neck or spine after appropriate evaluation to exclude secondary causes. -Low bone mass at the hip or spine and a 10-year fracture probability by FRAX of greater than or equal to 3% for hip fracture or greater than or equal to 20% for major osteoporotic fracture based on the [place] adapted WHO algorithm. 4. Other Recommendations: All treatment decisions require clinical judgment and consideration of individual patient factors, including patient preferences, comorbidities, previous drug use, risk factors not captured in the FRAX model (e.g. frailty, falls, vitamin D deficiency, increased bone turnover, interval significant decline in bone density) and possible under or overestimation of fracture risk by FRAX. Additional medical evaluation for secondary cause of low bone mineral density may be appropriate. FUTURE SCAN RECOMMENDATION: People with diagnosed cases of osteoporosis or at high risk for fracture should have regular bone mineral density tests. For patients eligible for Medicare, routine testing is allowed once every 2 years. The testing frequency can be increased to one year for patients who have rapidly progressing disease, those who are receiving or discontinuing medical therapy to restore bone mass, or have additional risk factors.
== END 2021-02-12 12:26 | disposition home or self-care (01) ==
LOC: HO.MAMMO 12:25
PROVIDERS: Visit Provider Registered Nurse Community Health
DX: Z13.820 Encounter for screening for osteoporosis (principal); M85.80 Other specified disorders of bone density and structure, unspecified site; Z78.0 Asymptomatic menopausal state; Z79.899 Other long term (current) drug therapy; Z98.890 Other specified postprocedural states
CPT/HCPCS: 77080

== ENCOUNTER → 2021-03-13 08:18 | Outpatient (BNVA) | payer MEDICARE, SELFPAY | PROVIDERS: Visit Provider Internal Medicine | DX: M54.16 Radiculopathy, lumbar region (principal) | CPT/HCPCS: 99212 ==

== ENCOUNTER 2021-04-13 10:32 | Outpatient (REF) | payer MEDICARE, SELFPAY ==
[2021-04-13 11:50] LABS: Free T4 (Free Thyroxine) 1.04 ng/dL (0.71-1.85); Thyroid Stimulating Hormone 0.69 uIU/mL (0.32-4.0)
== END 2021-04-13 10:33 | disposition home or self-care (01) ==
LOC: HO.LAB 10:32
PROVIDERS: PCP Registered Nurse Community Health; Visit Provider Internal Medicine Endocrinology, Diabetes & Metabolism
DX: E04.2 Nontoxic multinodular goiter (principal)
CPT/HCPCS: 36415; 84439; 84443

== ENCOUNTER → 2021-06-23 13:40 | Outpatient (BNVA) | payer MEDICARE, SELFPAY | PROVIDERS: PCP Registered Nurse Community Health; Visit Provider Internal Medicine Endocrinology, Diabetes & Metabolism | DX: E04.2 Nontoxic multinodular goiter (principal); E06.3 Autoimmune thyroiditis; E03.8 Other specified hypothyroidism; Z79.899 Other long term (current) drug therapy | CPT/HCPCS: 99212 ==

== ENCOUNTER 2021-06-29 08:56 | Emergency (ER) | payer MEDICARE, SELFPAY ==
--- NOTE | ~2021-06-29 | XR_ITS ---
EXAMINATION: XR CHEST CLINICAL INFORMATION: Body aches. Low-grade fever. COMPARISON: Previous chest x-ray February 2020 TECHNIQUE: 2 views of the chest were obtained. FINDINGS: The cardiac and mediastinal contours are stable. The lungs are clear. There is no pleural effusion or pneumothorax. There are degenerative changes of the spine. XR/XR chest 2V IMPRESSION: No evidence for acute disease in the chest.
[2021-06-29 09:42] VITALS: BP 137/77; PULSE 84; RESP 16; TEMP 37.6; O2SAT 96; BMI 34.0
--- NOTE | 2021-06-29 09:56 | ED_ITS ---
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 No feve rs, chills, upper respiratory symptoms, vomiting, abdominal pain, chest pain or shortness of breath. Patient did not take any of her morning medications this morning. She does use Lyrica for pain and she has some diclofenac topical which she uses intermittently. She is not vaccinated for flu She is vaccinated for COVID and had COVID in 2019 Related Data Home Medications Medication Instructions Recorded Confirmed atorvastatin 40 mg tablet 40 mg PO BEDTIME 02/12/20 02/04/21 blood sugar diagnostic (FreeStyle #10 ea 02/12/20 02/04/21 Test) ferrous sulfate 325 mg (65 mg 325 mg PO DAILY 02/12/20 02/04/21 iron) tablet lancets 28 gauge (FreeStyle #100 ea 02/12/20 06/23/21 Lancets) metoprolol succinate 50 mg 50 mg PO DAILY 02/12/20 06/23/21 tablet,extended release 24 hr omeprazole magnesium 20 mg 20 mg PO DAILY 02/12/20 06/23/21 tablet,delayed release (Prilosec OTC) pregabalin 100 mg capsule (Lyrica) 100 mg PO BEDTIME 02/12/20 06/23/21 aspirin 81 mg tablet,delayed 81 mg PO DAILY 03/18/20 06/23/21 release calcium carbonate 600 mg-vitamin 1 tab PO BID 03/18/20 06/23/21 D3 10 mcg (400 unit) tablet cholecalciferol (vitamin D3) 50 50 mcg PO DAILY 03/18/20 06/23/21 mcg (2,000 unit) capsule metformin 500 mg tablet,extended 1,000 mg PO BID 03/18/20 06/23/21 release 24 hr simvastatin 40 mg tablet 40 mg PO BEDTIME 03/18/20 06/23/21 insulin glargine 100 unit/mL (3 30 unit SUBCUT BID ml 05/19/20 06/23/21 mL) subcutaneous pen (Lantus Solostar U-100 Insulin) multivitamin with folic acid 400 1 tab PO DAILY tab 05/19/20 06/23/21 mcg tablet cyanocobalamin (vitamin B-12) 1,000 mcg PO DAILY 07/14/20 06/23/21 1,000 mcg tablet docusate sodium 100 mg capsule 100 mg PO BID 07/14/20 06/23/21 fluticasone propionate 110 2 puff INHALATION BID 07/14/20 06/23/21 mcg/actuation HFA aerosol inhaler fluticasone propionate 50 1 spray INTRANASAL DAILY 07/14/20 06/23/21 mcg/actuation nasal spray,suspension melatonin 5 mg tablet 5 mg PO BEDTIME 07/14/20 06/23/21 albuterol sulfate 90 mcg/actuation 2 inh INHALATION Q6-8H g 01/12/21 06/23/21 aerosol inhaler alcohol swabs (Easy Touch Alcohol 0 pad TOPICAL 06/23/21 06/23/21 Prep Pads) glipizide 2.5 mg tablet, extended 2.5 mg PO DAILY 06/23/21 06/23/21 release 24 hr lidocaine-prilocaine 2.5 %-2.5 % g TOPICAL 06/23/21 06/23/21 topical cream losartan 50 mg-hydrochlorothiazide 1 tab PO DAILY 06/23/21 06/23/21 12.5 mg tablet olopatadine 0.1 % eye drops 0 drp OPHTHALMIC (EYE) 06/23/21 06/23/21 pen needle, diabetic 31 gauge x #1200 ea 06/23/21 06/23/21 5/16 (Unifine Pentips) primidone 50 mg tablet 50 mg PO DAILY 06/23/21 06/23/21 trazodone 50 mg tablet 50 mg PO BEDTIME 06/23/21 06/23/21 Previous Rx's Medication Instructions Recorded acetaminophen 500 mg tablet 1,000 mg PO QID PRN #14 tab 06/05/20 (Tylenol Extra Strength) cyclobenzaprine 5 mg tablet 5 mg PO TID PRN #14 tab 12/18/20 ibuprofen 600 mg tablet 600 mg PO Q8H PRN #14 tab 12/18/20 lidocaine 5 % topical patch 1 patch TOPICAL DAILY #15 ea 12/18/20 (Lidoderm) Levoxyl 75 mcg tablet 75 mcg PO DAILY 90 Days #90 tab NS 01/22/21 (levothyroxine) methylcellulose (laxative) 500 mg 500 mg PO BID #60 tab 06/09/21 tablet (Fiber Therapy (methylcellulose)) cefpodoxime 100 mg tablet 100 mg PO BID #14 tab 06/29/21 Allergies Allergy/AdvReac Type Severity Reaction Status Date / Time lisinopril Allergy Intermediate itching Verified 06/23/21 13:56 Penicillins Allergy Intermediate rash/hives Verified 06/23/21 13:56 Review of Systems Review of Systems: Yes all other systems are reviewed and are negative Constitutional: Constitutional: Reports no additional constitutional complaints, Reports body ache(s), Denies chills, Denies fever(s), Reports headache(s) and Denies weakness Eyes: Eyes: Reports no additional eye complaints and Denies change in vision ENT: Reports system reviewed and no additional complaints, except as documented, Denies dizziness, Reports headache(s), Denies nasal congestion, Denies nasal discharge and Denies neck pain Cardiovascular: Cardiovascular: Reports no additional cardiovascular complain ts, Denies chest pain, Denies leg edema and Denies dyspnea Respiratory: Respiratory: Reports no additional respiratory complaints, Denies cough and Denies dyspnea Gastrointestinal: Gastrointestinal: Reports no additional gastrointestinal complaints, Denies abdominal pain, Denies diarrhea, Denies nausea and Denies vomiting Genitourinary: Genitourinary: Reports no additional female genitourinary complaints and Denies urinary incontinence Musculoskeletal: Musculoskeletal: Reports no additional musculoskeletal complaints, Denies back pain, Reports arthralgias, Denies joint swelling, Denies neck pain, Denies numbness and Denies tingling Integumentary/Breasts: Skin/Breast: Reports system reviewed and no additional complaints, except as docu and Denies rash Neurologic: Reports system reviewed and no additional complaints, except as documented, Denies dizziness, Reports headache(s), Denies numbness, Denies tingling and Denies weakness PMFSH Past Medical History Attestation statement: The following information was validated with the patient. Source: old records reviewed and nursing notes reviewed Medical History Asthma Broken arm CAD (coronary artery disease) Chronic constipation Diabetes mellitus Dysphagia Dyspnea History of COVID-19 HTN (hypertension) Hyperlipidemia Hypothyroidism Non-toxic multinodular goiter Surgical History History of carpal tunnel release History of partial hysterectomy History of surgery History of surgery on arm History of tubal ligation Hx of cataract surgery Hx of cholecystectomy Hx of colonoscopy Hx of elbow surgery Hx of tonsillectomy Family History Family History Father Throat cancer Heart disease CVD (cardiovascular disease) Mother Stomach cancer Type 2 diabetes mellitus Arthritis of knee Hypertension Social History Social History Household Members: None Alcohol intake: never Patient Tobacco Use Status: Never used Tobacco Second Hand Smoke Exposure: No Advance Directives: No Advance Directives Information Provided: No Current occupational status: retired Current occupation: right handed Physical Exam ED Vital Signs: Vital Signs - 24 hr 06/29/21 09:42 06/29/21 11:31 Temperature 99.6 F 98.5 F Pulse Rate 84 Respiratory Rate 16 Blood Pressure 137/77 Pulse Oximetry 96 BMI result Body Mass Index 34.0 Const General: cooperative, healthy appearing, comfortable and no acute distress Orientation/consciousness: patient oriented x3 Limitations: language barrier HENMT Head: Yes normal to inspection Ears: hearing grossly normal bilaterally and TM's normal bilaterally General nose exam: Normal external nose present Face and sinus: Yes normal facial exam Mouth: Normal oral and palatal mucosa present Teeth and gingiva: dentition normal Throat: Yes posterior oropharynx normal, Yes tonsils normal and Yes uvula midline Eyes General: appearance normal, both eyes and all related structures Pupils: Equal, round and reactive pupils present Neck Neck: Yes normal visual inspection, Yes full ROM, Yes no lymphadenopathy and Yes no meningeal signs Chest Chest palpation & inspection: normal inspection of the chest Resp Effort & Inspection: normal respiratory effort Auscultation: clear to auscultation bilaterally Cardio Rate: regular rate Rhythm: regular rhythm Peripheral pulses: Peripheral pulses 2+ throughout GI Inspection: Yes normal to inspection Palpation (GI): Soft to palpation and nontender General: Yes no CVA tenderness Back/Spine/Pelvis Back: no CVA tenderness Thoracic/Lumbar Spine: thoracic and lumbar spine normal to inspection Skin General skin exam: no rashes or lesions noted Neuro General: patient oriented x3, moves all extremities and no meningeal signs Cranial nerves: Yes CN's II-XII intact bilaterally, Yes Equal, round and reactive pupils present, Yes Bilaterally intact EOM present, Yes Nystagmus not present and Yes Normal facial strength present Cognition (Neuro): normal cognition Gait exam (Neuro): Normal gait present Motor exam (neuro): 5/5 motor strength present throughout Sensory Exam: Normal double simultaneous stimulation for sensation Extrem Other: Tenderness to the anterior left shoulder and proximal humerus which is worsened with abduction but patient is able. Neurovascular intact distally to the pain. There are normal pulses noted. No swelling, redness or warmth. General: Yes normal to inspection, Yes no pedal edema and Yes no calf tenderness Course Course Course Narrative: 76 yo female here with reports of body aches (worsened in left arm at prior surgical site per pt), headache, diarrhea. VSS with exception of low grade fever. Patient did not eat this morning or take any of her morning medications. Will check labs, COVID/flu swab, CXR, UA. Patient initially told nursing she had chest pain but when I spoke to patient s he reports to her left shoulder. On exam this is MS. 1250-labs show mild leukocytosis with no shift. All other labs are unremarkable with exception of mildly elevated inflammatory markers. COVID and flu screen is negative. Chest x-ray shows no acute finding. UA is consistent with UTI. Will treat with course of antibiotics. Patient is feeling improved receiving some Tylenol and her temp has trended down. She feels comfortable being discharged home is here with family. Reviewed worrisome signs symptoms of when to return to the emergency department. Comfortable discharge home. Medical Decision Making MDM Narrative Medical decision making narrative: rhabdo, viral syndrome, ua Medical Records Medical records reviewed: Yes I reviewed the patient's medical records. Lab Data Lab results reviewed: Yes I reviewed the patient's lab results. Result diagrams: 06/29/21 10:46 06/29/21 10:46 Labs: Lab Results 06/29/21 06/29/21 06/29/21 Range/Units 10:20 10:20 10:46 WBC 13.4 H (4.8-10.8) X10*3/uL RBC 4.01 L (4.20-5.50) X10*6/uL Hgb 11.2 L (12.0-16.0) g/dl Hct 34.1 L (37.0-47.0) % MCV 85.0 (80.0-98.0) fL MCH 27.9 (27.0-33.0) pg MCHC 32.8 (31.0-35.0) g/dl RDW 15.3 (11.0-16.0) % Plt Count 212 (160-400) X10*3/uL MPV 9.6 (9.4-12.3) fL Immature Gran % (Auto) 0.3 (0.0-0.4) % Neut % (Auto) 68.5 (45-73) % Lymph % (Auto) 23.2 (20-40) % Addison % (Auto) 7.3 (2-11) % Eos % (Auto) 0.4 (0-4) % Baso % (Auto) 0.3 (0-2) % Lymph # (Auto) 3.1 (1.2-4.9) X10*3/uL Addison # (Auto) 1.0 (0.1-1.2) X10*3/uL Eos # (Auto) 0.1 (0.0-0.4) X10*3/uL Baso # (Auto) 0.0 (0.0-0.2) X10*3/uL Abs Immat Gran (auto) 0.04 H (0.00-0.03) X10*3/uL Absolute Neuts (auto) 9.1 H (2.0-8.3) x10*3/uL Absolute Nucleated RBC 0.000 (0.0-0.012) X10*3/uL Nucleated RBC % (auto) 0.0 (0.0-0.2) /100WBC ESR (0-20) MM/HR Sodium (135-145) mmol/L Potassium (3.3-5.1) mmol/L Chloride (96-108) mmol/L Carbon Dioxide (22-29) mmol/L Anion Gap (12-20) BUN (9-16) mg/dL Creatinine (0.5-1.4) mg/dL Estim Creat Clear Calc Estimated GFR Random Glucose (60-115) mg/dL Calcium (8.4-10.2) mg/dL Total Bilirubin (0.0-1.0) mg/dL Direct Bilirubin (0.0-0.5) mg/dL AST (5-31) U/L ALT (0-31) U/L Alkaline Phosphatase (39-117) U/L Total Creatine Kinase (26-140) U/L C-Reactive Protein (< or = 0.50) mg/dL Total Protein (6.5-8.0) g/dL Albumin (3.5-5.0) g/dL Urine Color Urine Appearance Urine pH (5.0-8.0) Ur Specific [place] (1.005-1.025) Urine Protein (NEG-TRACE) MG/DL Urine Glucose (UA) (NEG) MG/DL Urine Ketones (NEG) MG/DL Urine Blood (NEG) Urine Nitrite (NEG) Ur Leukocyte Esterase (NEG) Urine RBC (0) /HPF Urine WBC (0-4) /HPF Ur Squamous Epith Cells /LPF Ur Renal Epithelial Cell /LPF Urine Bacteria /LPF Urine Mucus /LPF COVID-19 (KAZ) Negative (Negative) COVID-19 Clin Com See Note Influenza Type A (DANNY) Negative (Negative) Influenza Type B (DANNY) Negative (Negative) Influenza A & B Note See Note 06/29/21 06/29/21 06/29/21 Range/Units 10:46 10:46 10:46 WBC (4.8-10.8) X10*3/uL RBC (4.20-5.50) X10*6/uL Hgb (12.0-16.0) g/dl Hct (37.0-47.0) % MCV (80.0-98.0) fL MCH (27.0-33.0) pg MCHC (31.0-35.0) g/dl RDW (11.0-16.0) % Plt Count (160-400) X10*3/uL MPV (9.4-12.3) fL Immature Gran % (Auto) (0.0-0.4) % Neut % (Auto) (45-73) % Lymph % (Auto) (20-40) % Addison % (Auto) (2-11) % Eos % (Auto) (0-4) % Baso % (Auto) (0-2) % Lymph # (Auto) (1.2-4.9) X10*3/uL Addison # (Auto) (0.1-1.2) X10*3/uL Eos # (Auto) (0.0-0.4) X10*3/uL Baso # (Auto) (0.0-0.2) X10*3/uL Abs Immat Gran (auto) (0.00-0.03) X10*3/uL Absolute Neuts (auto) (2.0-8.3) x10*3/uL Absolute Nucleated RBC (0.0-0.012) X10*3/uL Nucleated RBC % (auto) (0.0-0.2) /100WBC ESR 23 H (0-20) MM/HR Sodium 141 (135-145) mmol/L Potassium 4.1 (3.3-5.1) mmol/L Chloride 108 (96-108) mmol/L Carbon Dioxide 25 (22-29) mmol/L Anion Gap 12 (12-20) BUN 8 L (9-16) mg/dL Creatinine 0.71 (0.5-1.4) mg/dL Estim Creat Clear Calc 79.8 Estimated GFR > 60 Random Glucose 150 H (60-115) mg/dL Calcium 9.3 D (8.4-10.2) mg/dL Total Bilirubin 0.7 (0.0-1.0) mg/dL Direct Bilirubin 0.2 (0.0-0.5) mg/dL AST 15 D (5-31) U/L ALT 13 (0-31) U/L Alkaline Phosphatase 121 H D (39-117) U/L Total Creatine Kinase 48 (26-140) U/L C-Reactive Protein 3.73 H (< or = 0.50) mg/dL Total Protein 6.5 (6.5-8.0) g/dL Albumin 3.7 (3.5-5.0) g/dL Urine Color Urine Appearance Urine pH (5.0-8.0) Ur Specific [place] (1.005-1.025) Urine Protein (NEG-TRACE) MG/DL Urine Glucose (UA) (NEG) MG/DL Urine Ketones (NEG) MG/DL Urine Blood (NEG) Urine Nitrite (NEG) Ur Leukocyte Esterase (NEG) Urine RBC (0) /HPF Urine WBC (0-4) /HPF Ur Squamous Epith Cells /LPF Ur Renal Epithelial Cell /LPF Urine Bacteria /LPF Urine Mucus /LPF COVID-19 (KAZ) (Negative) COVID-19 Clin Com Influenza Type A (DANNY) (Negative) Influenza Type B (DANNY) (Negative) Influenza A & B Note 06/29/21 Range/Units 11:33 WBC (4.8-10.8) X10*3/uL RBC (4.20-5.50) X10*6/uL Hgb (12.0-16.0) g/dl Hct (37.0-47.0) % MCV (80.0-98.0) fL MCH (27.0-33.0) pg MCHC (31.0-35.0) g/dl RDW (11.0-16.0) % Plt Count (160-400) X10*3/uL MPV (9.4-12.3) fL Immature Gran % (Auto) (0.0-0.4) % Neut % (Auto) (45-73) % Lymph % (Auto) (20-40) % Addison % (Auto) (2-11) % Eos % (Auto) (0-4) % Baso % (Auto) (0-2) % Lymph # (Auto) (1.2-4.9) X10*3/uL Addison # (Auto) (0.1-1.2) X10*3/uL Eos # (Auto) (0.0-0.4) X10*3/uL Baso # (Auto) (0.0-0.2) X10*3/uL Abs Immat Gran (auto) (0.00-0.03) X10*3/uL Absolute Neuts (auto) (2.0-8.3) x10*3/uL Absolute Nucleated RBC (0.0-0.012) X10*3/uL Nucleated RBC % (auto) (0.0-0.2) /100WBC ESR (0-20) MM/HR Sodium (135-145) mmol/L Potassium (3.3-5.1) mmol/L Chloride (96-108) mmol/L Carbon Dioxide (22-29) mmol/L Anion Gap (12-20) BUN (9-16) mg/dL Creatinine (0.5-1.4) mg/dL Estim Creat Clear Calc Estimated GFR Random Glucose (60-115) mg/dL Calcium (8.4-10.2) mg/dL Total Bilirubin (0.0-1.0) mg/dL Direct Bilirubin (0.0-0.5) mg/dL AST (5-31) U/L ALT (0-31) U/L Alkaline Phosphatase (39-117) U/L Total Creatine Kinase (26-140) U/L C-Reactive Protein (< or = 0.50) mg/dL Total Protein (6.5-8.0) g/dL Albumin (3.5-5.0) g/dL Urine Color YELLOW Urine Appearance CLEAR Urine pH 7.5 (5.0-8.0) Ur Specific [place] 1.010 (1.005-1.025) Urine Protein NEG (NEG-TRACE) MG/DL Urine Glucose (UA) NEG (NEG) MG/DL Urine Ketones NEG (NEG) MG/DL Urine Blood NEG (NEG) Urine Nitrite NEG (NEG) Ur Leukocyte Esterase 1+ H (NEG) Urine RBC 0 (0) /HPF Urine WBC 15-29 H (0-4) /HPF Ur Squamous Epith Cells NONE /LPF Ur Renal Epithelial Cell 1+ /LPF Urine Bacteria NONE /LPF Urine Mucus 1+ /LPF COVID-19 (KAZ) (Negative) COVID-19 Clin Com Influenza Type A (DANNY) (Negative) Influenza Type B (DANNY) (Negative) Influenza A & B Note Imaging Data Chest x-ray: Attestation: I personally reviewed and interpreted this imaging study as follows: Radiologist's impression: [address] [address] XRay Report Signed Patient: Arlette Dias MR#: [id number] : 1945 Acct:[id number] Age/Sex: 76 / F ADM Date: 06/29/21 Loc: .ED Attending Dr: Ordering Physician: Becka Melo NP Date of Service: 06/29/21 Procedure(s): XR chest 2V Accession Number(s): [id number] cc: Becka Melo NP~ EXAMINATION: XR CHEST CLINICAL INFORMATION: Body aches. Low-grade fever. COMPARISON: Previous chest x-ray February 2020 TECHNIQUE: 2 views of the chest were obtained. FINDINGS: The cardiac and mediastinal contours are stable. The lungs are clear. There is no pleural effusion or pneumothorax. There are degenerative changes of the spine. XR/XR chest 2V IMPRESSION: No evidence for acute disease in the chest. Discharge Plan Discharge Clinical Impression: Acute UTI Patient Disposition: Home, Self-Care Instructions: Urinary Tract Infection in Older Adults (ED) Additional Instructions: Tylenol for pain or fever Testing for flu, covid is negative Increase fluids, rest Return for increasing weakness, vomiting, fever >100.4 Prescriptions: New cefpodoxime 100 mg tablet 100 mg PO BID Qty: 14 0RF Rx Instructions: must administer with a meal/food No Action levothyroxine [Levoxyl] 75 mcg tablet 75 mcg PO DAILY 90 Days Qty: 90 1RF Fiber Therapy (m-cellulose) 500 mg tablet 500 mg PO BID Qty: 60 0RF acetaminophen [Tylenol Extra Strength] 500 mg tablet 1,000 mg PO QID PRN (Reason: fever or pain) Qty: 14 0RF lidocaine [Lidoderm] 5 % adhesive patch,medicated 1 patch topical DAILY Qty: 15 0RF Rx Instructions: leave on most painful area for up to 12 hrs ibuprofen 600 mg tablet 600 mg PO Q8H PRN (Reason: pain) Qty: 14 0RF cyclobenzaprine 5 mg tablet 5 mg PO TID PRN (Reason: muscle spasm) Qty: 14 0RF pregabalin [Lyrica] 100 mg capsule 100 mg PO BEDTIME 0RF ferrous sulfate 325 mg (65 mg iron) tablet 325 mg PO DAILY 0RF metoprolol succinate 50 mg tablet extended release 24 hr 50 mg PO DAILY 0RF omeprazole magnesium [Prilosec OTC] 20 mg tablet,delayed release (DR/EC) 20 mg PO DAILY 0RF (DME) lancets [FreeStyle Lancets] 28 gauge misc See Rx Instructions .ROUTE .MEDSUPPLY Qty: 100 0RF Rx Instructions: As directed (DME) FreeStyle Test Strip See Rx Instructions .ROUTE .MEDSUPPLY Qty: 10 0RF Rx Instructions: As directed atorvastatin 40 mg tablet 40 mg PO BEDTIME 0RF Lantus Solostar U-100 Insulin 100 unit/mL (3 mL) insulin pen 30 unit subcut BID 0RF aspirin 81 mg tablet,delayed release (DR/EC) 81 mg PO DAILY 0RF simvastatin 40 mg tablet 40 mg PO BEDTIME 0RF metformin 500 mg tablet extended release 24 hr 1,000 mg PO BID 0RF calcium carbonate-vitamin D3 600 mg(1,500mg) -400 unit tablet 1 tab PO BID 0RF cholecalciferol (vitamin D3) 50 mcg (2,000 unit) capsule 50 mcg PO DAILY 0RF multivitamin with folic acid 400 mcg tablet 1 tab PO DAILY 0RF cyanocobalamin (vitamin B-12) 1,000 mcg tablet 1,000 mcg PO DAILY 0RF docusate sodium 100 mg capsule 100 mg PO BID 0RF fluticasone propionate 50 mcg/actuation spray,suspension 1 spray intranasal DAILY 0RF fluticasone propionate 110 mcg/actuation HFA aerosol inhaler 2 puff inhalation BID 0RF melatonin 5 mg tablet 5 mg PO BEDTIME 0RF albuterol sulfate 90 mcg/actuation HFA aerosol inhaler 2 inh inhalation Q6-8H 0RF glipizide 2.5 mg tablet extended release 24hr 2.5 mg PO DAILY 0RF losartan-hydrochlorothiazide 50-12.5 mg tablet 1 tab PO DAILY 0RF primidone 50 mg tablet 50 mg PO DAILY 0RF trazodone 50 mg tablet 50 mg PO BEDTIME 0RF lidocaine-prilocaine 2.5-2.5 % cream topical 0RF olopatadine 0.1 % drops 0 drp ophthalmic (eye) 0RF alcohol swabs [Easy Touch Alcohol Prep Pads] Pads, Medicated 0 pad topical 0RF (DME) pen needle, diabetic [Unifine Pentips] 31 gauge x 5/16 needle See Rx Instructions ea .ROUTE .MEDSUPPLY Qty: 1200 0RF Rx Instructions: As directed Referrals: Katie Bishop 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
[2021-06-29] MEDS: Acetaminophen 325 MG TABLET 975 MG PO (10:15)
[2021-06-29 10:51] LABS: MANUAL DIFF FLAG NO
[2021-06-29 10:52] LABS: Basophils Percent Auto 0.3 % (0-2); Eosinophils Absolute Auto 0.1 X10*3/uL (0.0-0.4); Eosinophils Percent Auto 0.4 % (0-4); Hematocrit 34.1 % (37.0-47.0); Hemoglobin 11.2 g/dl (12.0-16.0); Imm Gran Abs Auto 0.04 X10*3/uL (0.00-0.03); Imm Gran Pct Auto 0.3 % (0.0-0.4); Lymphocytes Absolute Auto 3.1 X10*3/uL (1.2-4.9); Lymphocytes Percent Auto 23.2 % (20-40); Mean Corpuscular HGB Conc 32.8 g/dl (31.0-35.0); Mean Corpuscular Hemoglobin 27.9 pg (27.0-33.0); Mean Platelet Volume 9.6 fL (9.4-12.3); Monocytes Percent Auto 7.3 % (2-11); Neutrophils Absolute Auto 9.1 x10*3/uL (2.0-8.3); Neutrophils Percent Auto 68.5 % (45-73); Platelet Count 212 X10*3/uL (160-400); Red Blood Count 4.01 X10*6/uL (4.20-5.50); Red Cell Distribution Width 15.3 % (11.0-16.0); White Blood Count 13.4 X10*3/uL (4.8-10.8)
[2021-06-29 10:59] LABS: COVID-19 Test Negative (Negative); IDNOW Serial# 08D9AD1C; Influenza A Negative (Negative); Influenza B2 Negative (Negative)
[2021-06-29 11:08] LABS: Alanine Aminotransferase 13 U/L (0-31); Albumin Level 3.7 g/dL (3.5-5.0); Alkaline Phosphatase 121 U/L (39-117); Anion Gap 12 (12-20); Aspartate Amino Transferase 15 U/L (5-31); Bilirubin Direct 0.2 mg/dL (0.0-0.5); Bilirubin Total 0.7 mg/dL (0.0-1.0); Blood Urea Nitrogen 8 mg/dL (9-16); C Reactive Protein 3.73 mg/dL (< or = 0.50); Calcium 9.3 mg/dL (8.4-10.2); Carbon Dioxide 25 mmol/L (22-29); Chloride 108 mmol/L (96-108); Creatinine Clr Calc Pharmacy 79.8; Estimated Glomerular Filt Rate > 60; Glucose Random 150 mg/dL (60-115); Potassium 4.1 mmol/L (3.3-5.1); Sodium 141 mmol/L (135-145); Total Protein 6.5 g/dL (6.5-8.0)
[2021-06-29 11:29] LABS: Erythrocyte Sedimentation Rate 23 MM/HR (0-20)
[2021-06-29 11:31] VITALS: TEMP 36.9
[2021-06-29 11:47] LABS: Appearance Urine CLEAR; Color Urine YELLOW; Glucose Urine UA NEG (NEG); Leukocyte Esterase Urine 1+ (NEG); Nitrite Urine NEG (NEG); PH 7.5 (5.0-8.0); UACC Culture Trigger YES; Urine Blood NEG (NEG); Urine Ketones NEG (NEG); Urine Protein NEG (NEG-TRACE)
[2021-06-29 11:59] LABS: Mucus Urine 1+ /LPF; RBC Urine 0 /HPF (0); Renal Epithelial Cells Urine 1+ /LPF
[2021-06-29 18:19] LABS: Glucose, Whole Blood 156 mg/dL (60-115)
== END 2021-06-29 13:07 | disposition home or self-care (01) ==
PROVIDERS: Nurse Practitioner Family; Emergency Provider Emergency Medicine Emergency Medical Services; PCP Registered Nurse Community Health
DX: N39.0 Urinary tract infection, site not specified (principal); M25.512 Pain in left shoulder; E11.9 Type 2 diabetes mellitus without complications; I10 Essential (primary) hypertension; E78.5 Hyperlipidemia, unspecified; Z20.822 Contact with and (suspected) exposure to COVID-19; Z79.02 Long term (current) use of antithrombotics/antiplatelets; Z79.4 Long term (current) use of insulin; Z79.82 Long term (current) use of aspirin
CPT/HCPCS: 36415; 71046; 80048; 80076; 81001; 82550; 82947; 85025; 85652; 86140; 87086; 87502; 87635; 99283; 99284

== ENCOUNTER 2021-07-13 12:04 | Outpatient (REF) | payer OTHER, SELFPAY ==
--- NOTE | ~2021-07-13 | XR_ITS ---
EXAMINATION: XR ELBOW, LEFT CLINICAL INFORMATION: Pain COMPARISON: None TECHNIQUE: AP, lateral, and oblique views of the left elbow. FINDINGS: There are 2 pins and cerclage wire through the olecranon process stabilizing old healed fracture. No new acute fracture, dislocation or subluxation seen. There is mild loss of ulnar humeral joint space with mild periarticular spurring along the ulnar. Also visualized is a small enthesophyte along the medial epicondyle. No abnormal joint effusion seen. XR/XR elbow LT min 3V IMPRESSION: Old healed fracture olecranon process with internal hardware as described above. No recurrent fracture seen. Medial epicondyle enthesophyte. Periapical spurring along the ulnohumeral joint.
== END 2021-07-13 12:05 | disposition home or self-care (01) ==
LOC: HO.HOSX 12:04
PROVIDERS: Visit Provider Physician Assistant
DX: M25.522 Pain in left elbow (principal); Z96.89 Presence of other specified functional implants
CPT/HCPCS: 73080; 99212

== ENCOUNTER → 2021-08-04 15:02 | Outpatient (BNVA) | payer MEDICARE, SELFPAY | PROVIDERS: PCP Registered Nurse Community Health; Referring Provider Registered Nurse Community Health; Visit Provider Internal Medicine Cardiovascular Disease | DX: Z01.810 Encounter for preprocedural cardiovascular examination (principal) | CPT/HCPCS: 93005; 99212 ==

== ENCOUNTER → 2021-08-07 07:50 | Outpatient (REF) | payer MEDICARE, SELFPAY ==
--- NOTE | ~2021-08-07 | NM_ITS ---
Lexiscan Myocardial perfusion study Indication: Preoperative cardiac vascular evaluation Technique: The patient was brought in for a Lexiscan perfusion study on 08/07/2021 and was injected 0.4 mg of Lexiscan intravenously. Within a minute of this injection 35 mCi of sestamibi was given intravenously. Images were obtained using the SPECT gamma camera interlaced with the gating device. Images were obtained in supine position. Resting perfusion study was performed on 07/11/2021. Patient was administered 35 mCi of sestamibi intravenously at rest. Images were then obtained in supine position. Total DLP 147mGy-cm. Images were processed with the software and compared side to side in short axis, horizontal long axis and vertical long axis views. Findings: Raw acquisition was reviewed. Left arm by the patient's side. The stress perfusion study showed diminished tracer uptake along the distal part of inferolateral wall. There is also diminished tracer uptake in the distal part of anteroseptal wall. With CT attenuation, there is some improvement in the inferolateral aspect and hence could be from diaphragmatic attenuation artifact. The gated study shows normal LV systolic function with calculated LVEF of 67%. LV cavity is normal in size. The gated study shows reduced thickening and contractility in the distal part of inferolateral wall as well as anteroseptal wall. Resting study shows diminished tracer uptake in the distal part of inferolateral wall. With CT attenuation correction, there is improvement and hence suggestive of diaphragmatic attenuation artifact. Gating at rest reveals reduced contractility in the distal inferolateral wall with LVEF 58% The findings are consistent with fixed distal inferolateral defect. Mild reversible distal anteroseptal defect. NM/NM phil perf SPECT rest & str Impression: 1. Myocardial perfusion imaging study shows fixed distal inferolateral defect that could be from prior infarct. Mild to moderate ischemia in the distal anteroseptal wall. 2. Gated LVEF is 67% during stress and 58% during rest. 3. Transient ischemic dilatation not present. EKG component of the test reported separately.
--- NOTE | 2021-08-07 07:57 | CA_ITS ---
Acquisition Time: 2021-08-07 08:23:36 Total Exercise Time: 00:02:00 Test Indications: Dyspnea Medications: SEE H Protocol: LEXISCAN Max HR: 106 BPM 73% of Pred: 145 BPM Max BP: 124/060 mmHG Max Work Load: 1.0 METS Pharmacological stress test with Lexiscan injection, while sitting and kicking her legs, without anginal symptoms, without arrythmia, with normotensive response to injection, with nondiagnostic EKG for ischemia. Nuclear images pending. Test reviewed with Dr Self. Referred By: Salvador Lima Overread By: EHLAM QUESADA
== END ==
LOC: HO.CARD 07:50
PROVIDERS: PCP Registered Nurse Community Health; Visit Provider Internal Medicine Cardiovascular Disease
DX: Z01.810 Encounter for preprocedural cardiovascular examination (principal)
CPT/HCPCS: 78452; 93017; A9500; J0280; J2785

== ENCOUNTER 2021-08-12 06:53 | Day surgery (SDC) | payer OTHER, SELFPAY ==
--- NOTE | 2021-08-11 09:48 | HO.ANESPROP2 ---
Documented by User: Noelle Rodriguez NP 08/11/21 09:50 HPI - Anesthesia Eval Consult details Narrative: 76yo F for Left Removal Orthopedic Hardware elbow Optimized at intermed risk per cardiology (nuc stress done to eval for SOB) s/p elbow surgery 04/2020 with GA-LMA 4 PMFSH Active Problems Active Problems: All Active Problems (Updated 08/06/21 @ 11:34 by Kesha Flores, RN) COVID-19 (Acute) Closed fracture of left olecranon process (Acute) Closed fracture of olecranon process of ulna with routine healing (Acute) Abnormality of lung on CXR (Acute) Encounter for screening colonoscopy (Acute) Osteoarthritis of knees, bilateral (Acute) Lumbar back pain with radiculopathy affecting right lower extremity (Acute) Retained orthopedic hardware (Acute) Preoperative cardiovascular examination (Acute) Asthma (Acute) Chronic constipation (Acute) CAD (coronary artery disease) (Acute) HTN (hypertension) (Acute) Hyperlipidemia (Acute) Diabetes mellitus (Acute) Dyspnea (Acute) Dysphagia (Acute) Non-toxic multinodular goiter (Acute) Hypothyroidism (Acute) Past Medical History Medical History (Updated 08/06/21 @ 11:34 by Kesha Flores, RN) Asthma Broken arm CAD (coronary artery disease) Chronic constipation Diabetes mellitus Dysphagia Dyspnea History of COVID-19 HTN (hypertension) Hyperlipidemia Hypothyroidism Non-toxic multinodular goiter On beta anish at home Family History Family History Father Throat cancer Heart disease CVD (cardiovascular disease) Mother Stomach cancer Type 2 diabetes mellitus Arthritis of knee Hypertension Family history of problems with anesthesia: No Surgical History Surgical History (Updated 08/06/21 @ 11:24 by Kesha Flores, RN) History of carpal tunnel release History of partial hysterectomy History of surgery History of surgery on arm History of tubal ligation Hx of cataract surgery Hx of cholecystectomy Hx of colonoscopy Hx of elbow surgery Hx of tonsillectomy History of Problems with Anesthesia: No Social History Social History Household Members: None Alcohol intake: never Patient Tobacco Use Status: Never used Tobacco Second Hand Smoke Exposure: No Current occupational status: retired Current occupation: right handed Meds Allergies Allergy/AdvReac Type Severity Reaction Status Date / Time lisinopril Allergy Intermediate itching Verified 08/06/21 11:29 Penicillins Allergy Intermediate rash/hives Verified 08/06/21 11:29 Home Medications Medication Instructions Recorded Confirmed Last Taken Type blood sugar diagnostic (FreeStyle #10 ea 02/12/20 07/13/21 Unknown History Test) ferrous sulfate 325 mg (65 mg 325 mg PO DAILY 02/12/20 08/06/21 Unknown History iron) tablet lancets 28 gauge (FreeStyle #100 ea 02/12/20 07/13/21 Unknown History Lancets) metoprolol succinate 50 mg 50 mg PO DAILY 02/12/20 08/06/21 Unknown History tablet,extended release 24 hr omeprazole magnesium 20 mg 20 mg PO DAILY 02/12/20 08/06/21 Unknown History tablet,delayed release (Prilosec OTC) pregabalin 100 mg capsule (Lyrica) 100 mg PO BEDTIME 02/12/20 08/06/21 Unknown History aspirin 81 mg tablet,delayed 81 mg PO DAILY 03/18/20 08/06/21 Unknown History release calcium carbonate 600 mg-vitamin 1 tab PO BID 03/18/20 08/06/21 Unknown History D3 10 mcg (400 unit) tablet cholecalciferol (vitamin D3) 50 50 mcg PO DAILY 03/18/20 08/06/21 Unknown History mcg (2,000 unit) capsule metformin 500 mg tablet,extended 1,000 mg PO BID 03/18/20 08/06/21 Unknown History release 24 hr simvastatin 40 mg tablet 40 mg PO BEDTIME 03/18/20 08/06/21 Unknown History insulin glargine 100 unit/mL (3 30 unit SUBCUT BID ml 05/19/20 08/06/21 Unknown History mL) subcutaneous pen (Lantus Solostar U-100 Insulin) multivitamin with folic acid 400 1 tab PO DAILY tab 05/19/20 08/06/21 Unknown History mcg tablet cyanocobalamin (vitamin B-12) 1,000 mcg PO DAILY 07/14/20 08/06/21 Unknown History 1,000 mcg tablet docusate sodium 100 mg capsule 100 mg PO BID 07/14/20 08/06/21 Unknown History fluticasone propionate 110 2 puff INHALATION BID 07/14/20 08/06/21 Unknown History mcg/actuation HFA aerosol inhaler fluticasone propionate 50 1 spray INTRANASAL DAILY 07/14/20 08/06/21 Unknown History mcg/actuation nasal spray,suspension melatonin 5 mg tablet 5 mg PO BEDTIME 07/14/20 08/06/21 Unknown History albuterol sulfate 90 mcg/actuation 2 inh INHALATION Q6-8H g 01/12/21 08/06/21 Unknown History aerosol inhaler alcohol swabs (Easy Touch Alcohol 0 pad TOPICAL 06/23/21 07/13/21 Unknown History Prep Pads) glipizide 2.5 mg tablet, extended 2.5 mg PO DAILY 06/23/21 08/06/21 Unknown History release 24 hr lidocaine-prilocaine 2.5 %-2.5 % g TOPICAL 06/23/21 08/04/21 Unknown History topical cream losartan 50 mg-hydrochlorothiazide 1 tab PO DAILY 06/23/21 08/06/21 Unknown History 12.5 mg tablet olopatadine 0.1 % eye drops 0 drp OPHTHALMIC (EYE) 06/23/21 08/04/21 Unknown History pen needle, diabetic 31 gauge x #1200 ea 06/23/21 07/13/21 Unknown History 5/16 (Unifine Pentips) primidone 50 mg tablet 50 mg PO DAILY 06/23/21 08/06/21 Unknown History trazodone 50 mg tablet 50 mg PO BEDTIME 06/23/21 08/06/21 Unknown History Exam Exam Date and Time: August 11, 2021 0948 Pertinent Lab Results Pertinent Lab Results: Laboratory Tests 06/29/21 06/29/21 10:46 10:46 WBC 13.4 H Hgb 11.2 L Hct 34.1 L Plt Count 212 Sodium 141 Potassium 4.1 Chloride 108 Carbon Dioxide 25 BUN 8 L Creatinine 0.71 Narrative Narrative: EKG 07/2021 normal sinus rhythm with moderate LVH criteria with nonspecific ST T wave changes NM phil perf SPECT rest & str 07/2021 Impression: ? 1.? Myocardial perfusion imaging study shows fixed distal inferolateral defect that could be from prior infarct. Mild to moderate ischemia in the distal anteroseptal wall. 2.? Gated LVEF is 67% during stress and 58% during rest. 3. Transient ischemic dilatation not present. ? EKG component of the test reported separately. (Nondiagnostic) Assessment and Plan Assessment Anesthesia Assessment: Chart Reviewed Final Anesthetic Review Family History of Problems with Anesthesia: No History of Problems with Anesthesia: No Documented by User: Alexi Lema MD 08/12/21 17:24 [facility] Past Medical History Medical History (Updated 08/06/21 @ 11:34 by Kesha Flores, RN) Asthma Broken arm CAD (coronary artery disease) Chronic constipation Diabetes mellitus Dysphagia Dyspnea History of COVID-19 HTN (hypertension) Hyperlipidemia Hypothyroidism Non-toxic multinodular goiter On beta anish at home Family History Family History Father Throat cancer Heart disease CVD (cardiovascular disease) Mother Stomach cancer Type 2 diabetes mellitus Arthritis of knee Hypertension Surgical History Surgical History (Updated 08/06/21 @ 11:24 by Kesha Flores, RN) History of carpal tunnel release History of partial hysterectomy History of surgery History of surgery on arm History of tubal ligation Hx of cataract surgery Hx of cholecystectomy Hx of colonoscopy Hx of elbow surgery Hx of tonsillectomy Social History Social History Household Members: None Alcohol intake: never Patient Tobacco Use Status: Never used Tobacco Second Hand Smoke Exposure: No Current occupational status: retired Current occupation: right handed Meds Allergies Allergy/AdvReac Type Severity Reaction Status Date / Time lisinopril Allergy Intermediate itching Verified 08/06/21 11:29 Penicillins Allergy Intermediate rash/hives Verified 08/06/21 11:29 Home Medications Medication Instructions Recorded Confirmed Last Taken Type blood sugar diagnostic (FreeStyle #10 ea 02/12/20 07/13/21 Unknown History Test) ferrous sulfate 325 mg (65 mg 325 mg PO DAILY 02/12/20 08/06/21 Unknown History iron) tablet lancets 28 gauge (FreeStyle #100 ea 02/12/20 07/13/21 Unknown History Lancets) metoprolol succinate 50 mg 50 mg PO DAILY 02/12/20 08/06/21 Unknown History tablet,extended release 24 hr omeprazole magnesium 20 mg 20 mg PO DAILY 02/12/20 08/06/21 Unknown History tablet,delayed release (Prilosec OTC) pregabalin 100 mg capsule (Lyrica) 100 mg PO BEDTIME 02/12/20 08/06/21 Unknown History aspirin 81 mg tablet,delayed 81 mg PO DAILY 03/18/20 08/06/21 Unknown History release calcium carbonate 600 mg-vitamin 1 tab PO BID 03/18/20 08/06/21 Unknown History D3 10 mcg (400 unit) tablet cholecalciferol (vitamin D3) 50 50 mcg PO DAILY 03/18/20 08/06/21 Unknown History mcg (2,000 unit) capsule metformin 500 mg tablet,extended 1,000 mg PO BID 03/18/20 08/06/21 Unknown History release 24 hr simvastatin 40 mg tablet 40 mg PO BEDTIME 03/18/20 08/06/21 Unknown History insulin glargine 100 unit/mL (3 30 unit SUBCUT BID ml 05/19/20 08/06/21 Unknown History mL) subcutaneous pen (Lantus Solostar U-100 Insulin) multivitamin with folic acid 400 1 tab PO DAILY tab 05/19/20 08/06/21 Unknown History mcg tablet cyanocobalamin (vitamin B-12) 1,000 mcg PO DAILY 07/14/20 08/06/21 Unknown History 1,000 mcg tablet docusate sodium 100 mg capsule 100 mg PO BID 07/14/20 08/06/21 Unknown History fluticasone propionate 110 2 puff INHALATION BID 07/14/20 08/06/21 Unknown History mcg/actuation HFA aerosol inhaler fluticasone propionate 50 1 spray INTRANASAL DAILY 07/14/20 08/06/21 Unknown History mcg/actuation nasal spray,suspension melatonin 5 mg tablet 5 mg PO BEDTIME 07/14/20 08/06/21 Unknown History albuterol sulfate 90 mcg/actuation 2 inh INHALATION Q6-8H g 01/12/21 08/06/21 Unknown History aerosol inhaler alcohol swabs (Easy Touch Alcohol 0 pad TOPICAL 06/23/21 07/13/21 Unknown History Prep Pads) glipizide 2.5 mg tablet, extended 2.5 mg PO DAILY 06/23/21 08/06/21 Unknown History release 24 hr lidocaine-prilocaine 2.5 %-2.5 % g TOPICAL 06/23/21 08/04/21 Unknown History topical cream losartan 50 mg-hydrochlorothiazide 1 tab PO DAILY 06/23/21 08/06/21 Unknown History 12.5 mg tablet olopatadine 0.1 % eye drops 0 drp OPHTHALMIC (EYE) 06/23/21 08/04/21 Unknown History pen needle, diabetic 31 gauge x #1200 ea 06/23/21 07/13/21 Unknown History 5/16 (Unifine Pentips) primidone 50 mg tablet 50 mg PO DAILY 06/23/21 08/06/21 Unknown History trazodone 50 mg tablet 50 mg PO BEDTIME 06/23/21 08/06/21 Unknown History Exam Airway Mallampati Class: III TM Dist: >3cm Denture: Upper and Lower Loose/Missing/Broken Teeth: Yes Heart: S1, S2 Lungs: b/l breath sounds Assessment and Plan Assessment Anesthesia Assessment: Anesthesia Plan Discussed Final Anesthetic Review NPO: Yes ASA Class: III Final Preanesthetic Review: Meds/Allgs Chart Reviewed, Consent Obtained/Reviewed and Anes Risks/Benef Reviewed Patient Risk: High Procedure Risk: Intermediate Anesthetic Plan Anesthetic Plan: GA Disposition: Standard PACU
[2021-08-12] VITALS (7 sets, daily range): BP systolic 123–163; BP diastolic 60–68; PULSE 57–65; RESP 16–19; TEMP 36.2–36.8; O2SAT 96–99; BMI 35.0
--- NOTE | ~2021-08-12 | FL_ITS ---
EXAMINATION: XR FLUOROSCOPY WITH IMAGES CLINICAL INFORMATION: Hardware removal. COMPARISON: Earlier on same day. TECHNIQUE: Fluoroscopy performed by Dr. Nilo Fabian. Fluoroscopy time: 1.2 seconds DAP: 2027.6 uGycm2 Images: 1 FINDINGS: A single image taken portably in the operating room does not demonstrate any metallic hardware about the elbow. There has been removal of 2 pins and cerclage wire. FL/FL guidance in OR IMPRESSION: Left proximal ulna hardware removal.
[2021-08-12 07:15] LABS: Glucose, Whole Blood 113 mg/dL (60-115)
[2021-08-12] MEDS: Lactated Ringers 1,000 ML 100 ML IVCONT (07:45)
--- NOTE | 2021-08-12 08:35 | MHC.SHP ---
Pre-Procedural Eval Section A Date of Service: 08/12/21 The patient is an INPATIENT: No Changes since office visit: Yes Patient answered all questions; No Cold of Flu in the past 2 weeks, No New Medical Problems and No Changes in Medication The History & Physical has been completed within 30 days and I have reviewed it.: Yes Section B Chief Complaint: Presence of functional implant, Allergies: Allergies Allergy/AdvReac Type Severity Reaction Status Date / Time lisinopril Allergy Intermediate itching Verified 08/06/21 11:29 Penicillins Allergy Intermediate rash/hives Verified 08/06/21 11:29 Plan I have reviewed the history and physical and performed a pertinent physical examination on my patient. No changes have occurred unless specified.
--- NOTE | 2021-08-12 09:34 | P.BOP_ITS ---
Brief Operative Note Date of Service: 08/12/21 Pre-op diagnosis: Retained orthopaedic hardware left elbow Post-op diagnosis: same Procedure: Removal of implant, deep, left elbow. Surgeon: Nilo Fabian MD Anesthesia: GETA and local Was an Teaching Specialists used for this Procedure?: Yes Teaching Specialists: Brittany Barth Estimated blood loss (mL): 10 Tourniquet time (min): 12 IV fluids (mL): 500 Pathology: none sent Condition: stable Disposition: PACU
--- NOTE | 2021-08-12 09:37 | W.PM.OPN ---
Operative Note Operative Note Date of Service: 08/12/21 Narrative: Pre-op diagnosis: Retained orthopaedic hardware left elbow Post-op diagnosis: same Procedure: Removal of implant, deep, left elbow. Surgeon: Nilo Fabian MD Anesthesia: GETA and local Was an Investor Relations Manager used for this Procedure?: Yes Investor Relations Manager: Brittany Barth Estimated blood loss (mL): 10 Tourniquet time (min): 12 IV fluids (mL): 500 Pathology: none sent Condition: stable Disposition: PACU Procedure in detail: Patient was brought to the operating room and placed supine on the surgical table. She was prepped and draped in standard sterile fashion and a time out was called to identify proper site, proper procedure and IV antibiotics per weight were administered. I began by injection 5 ml of 1/4% marcaine over the distal 2cm of the left elbow incision. The tourniquet was insufflated to 250 mm Hg. I made a 2 cm incision over the proud hardware. Full thickness flaps were taken down to the wires which were removed easily. I then identified the twisted k-wire and cut the ends and removed it from the elbow in its entirety. I then obtained fluoroscopic views and was satisfied that all the hardware had been removed. I irrigated and injection an addition 10 ml of 1/4% marcaine. Adsorbable sutures and staple were used for closure. Patient was placed n sterile dressing and awakened from anesthesia. She was brought to the recovery room in stable condition. There were no known complications.
[2021-08-12] MEDS: Acetaminophen 325 MG TABLET 650 MG PO (10:16)
== END 2021-08-12 11:56 | disposition home or self-care (01) ==
PROVIDERS: PCP Registered Nurse Community Health; Visit Provider Orthopaedic Surgery
PROC: (CPT 20680; principal; 2021-08-12 08:40)
DX: T84.84XA Pain due to internal orthopedic prosthetic devices, implants and grafts, initial encounter (principal); G89.18 Other acute postprocedural pain; M25.522 Pain in left elbow; Y79.1 Therapeutic (nonsurgical) and rehabilitative orthopedic devices associated with adverse incidents; Y92.9 Unspecified place or not applicable; J45.909 Unspecified asthma, uncomplicated; I10 Essential (primary) hypertension; E78.5 Hyperlipidemia, unspecified; E11.9 Type 2 diabetes mellitus without complications; Z79.4 Long term (current) use of insulin; Z79.51 Long term (current) use of inhaled steroids; Z79.82 Long term (current) use of aspirin; Z79.899 Other long term (current) drug therapy; Z88.0 Allergy status to penicillin; Z88.8 Allergy status to other drugs, medicaments and biological substances; Z86.16 Personal history of COVID-19; Z98.890 Other specified postprocedural states
CPT/HCPCS: 20680; 82947; J1100; J2250; J2405; J3010

== ENCOUNTER → 2021-08-17 08:46 | Outpatient (BNVA) | payer OTHER, SELFPAY | PROVIDERS: Visit Provider Physician Assistant | DX: S52.022D Displaced fracture of olecranon process without intraarticular extension of left ulna, subsequent encounter for closed fracture with routine healing (principal) | CPT/HCPCS: 99212 ==

== ENCOUNTER → 2021-08-21 07:57 | Outpatient (BNVA) | payer OTHER, SELFPAY | PROVIDERS: Visit Provider Physician Assistant | DX: T84.84XD Pain due to internal orthopedic prosthetic devices, implants and grafts, subsequent encounter (principal) | CPT/HCPCS: 99212 ==

== ENCOUNTER → 2021-10-19 12:51 | Outpatient (BNVA) | payer OTHER, SELFPAY | PROVIDERS: PCP Registered Nurse Community Health; Visit Provider Nurse Practitioner Family | DX: M54.16 Radiculopathy, lumbar region (principal); G57.91 Unspecified mononeuropathy of right lower limb | CPT/HCPCS: 99212 ==

== ENCOUNTER 2021-10-30 10:51 | Outpatient (REF) | payer OTHER, SELFPAY ==
--- NOTE | 2021-10-30 12:04 | PFT_ITS ---
INDICATION: Dyspnea. SPIROMETRY: The FEV1 to FVC of 88% with an FEV1 of 1.73 L, which is 85% predicted; an FVC of 1.96 L, which is 73% predicted. No significant response to bronchodilators noted. Maximum voluntary ventilation 62% predicted. LUNG VOLUMES: Total lung capacity 72% predicted with an expiratory reserve volume of 55% predicted and a diffusion capacity DLCO of 45% predicted. COMPARISONS: PFTs from 2013. INTERPRETATION: No obstructive ventilatory defect. No significant response to bronchodilators noted. There is a [id number] decrease in maximum voluntary ventilation secondary to likely deconditioning. The patient does have a restrictive ventilatory defect consistent with mild restrictive lung disease, probably due to her body habitus, although interstitial lung conditions cannot be ruled out. The patient does have a severe diffusion impairment, which partially corrects. When compared to PFTs from 2013. There is a trend decrease in the FVC, a trend decrease in the FEV1, a trend increase in the total lung capacity, and a significant decrease in the diffusion capacity. Clinical correlation warranted. MD GLADIS Gruber/ROGERIO / [id number]
== END 2021-10-30 10:52 | disposition home or self-care (01) ==
LOC: HO.RESP 10:51
PROVIDERS: PCP Registered Nurse Community Health; Visit Provider Hospitalist
DX: J45.909 Unspecified asthma, uncomplicated (principal)
CPT/HCPCS: 94060; 94727; 94729

== ENCOUNTER 2021-11-03 13:03 | Outpatient (REF) | payer OTHER, SELFPAY ==
--- NOTE | ~2021-11-03 | MR_ITS ---
EXAMINATION: MR LUMBAR SPINE WITHOUT CONTRAST CLINICAL INFORMATION: Radiculopathy, lumbar region COMPARISON: None TECHNIQUE: MRI of the lumbar spine was obtained using routine sequences without contrast. FINDINGS: The lumbar vertebral bodies maintain normal heights. There is mild anterolisthesis of L4 on L5. The disc heights are preserved. No bone marrow edema is seen. The distal spinal cord appears normal. The conus medullaris terminates normally at the T12-L1 level. Small sacral Tarlov cysts are noted. The extraspinal soft tissues are within normal limits. SPINAL LEVELS: L1-L2: Shallow right subarticular protrusion. No spinal canal or neural foraminal stenosis. L2-L3: Mild disc bulging with mild facet arthropathy and ligament flavum infolding. No spinal canal stenosis. Minimal neural foraminal stenosis. L3-L4: Disc bulging with ligamentum flavum infolding moderate facet arthropathy resulting in mild spinal canal stenosis with bilateral subarticular stenosis with abutment of both traversing L4 nerve roots. Mild bilateral neural foraminal stenosis with abutment of the exiting right L3 nerve root. L4-L5: Disc bulging with central protrusion, ligamentum flavum infolding, and moderate facet arthropathy resulting in moderate spinal canal stenosis with mild compression of both traversing L5 nerve roots. Mild right neural foraminal stenosis with abutment of the exiting right L4 nerve root. L5-S1: Mild disc bulging with moderate facet arthropathy. No spinal canal stenosis. No significant neural foraminal stenosis. MR/MR lumbar spine wo con IMPRESSION: At L3-L4 there is mild spinal canal stenosis and subarticular stenosis with abutment of both traversing L4 nerve roots. Mild bilateral neural foraminal stenosis with abutment of the exiting right L3 nerve root. At L4-L5 there is moderate spinal canal stenosis with mild compression of both traversing L5 nerve roots and abutment of the exiting right L4 nerve root.
== END 2021-11-03 13:04 | disposition home or self-care (01) ==
LOC: HO.MRI 13:03
PROVIDERS: Visit Provider Nurse Practitioner Family
DX: G57.91 Unspecified mononeuropathy of right lower limb (principal)
CPT/HCPCS: 72148; 99212

== ENCOUNTER → 2021-11-20 10:46 | Outpatient (BNVA) | payer OTHER, SELFPAY | PROVIDERS: PCP Registered Nurse Community Health; Visit Provider Internal Medicine | DX: M54.16 Radiculopathy, lumbar region (principal) | CPT/HCPCS: 99212 ==

== ENCOUNTER 2022-01-20 11:31 | Outpatient (REF) | payer OTHER, SELFPAY ==
--- NOTE | ~2022-01-20 | CT_ITS ---
EXAMINATION: CT ABDOMEN AND PELVIS WITH CONTRAST CLINICAL INFORMATION: Diarrhea, abdominal cramping and pain. COMPARISON: None TECHNIQUE: Multidetector volumetric images were obtained from the superior aspect of the liver through the pubic symphysis following administration 85 mL of Omnipaque 350 intravenous contrast. Sagittal and coronal reformatted images were obtained on the technologist's workstation. Oral contrast: No This CT examination was performed using dose optimization techniques as appropriate, variously including the following: *Automated exposure control *Adjustment of mA and/or kV according to patient size (this includes techniques or standardized protocols for targeted exams where dose is matched to indication/reason for exam; i.e. extremities or head) *Use of iterative reconstruction technique DLP: 532 mGy-cm FINDINGS: LUNG BASES: There is a 7 mm subpleural nodule right lower lobe axial image 04/18. No additional pulmonary nodule seen. Plate-like atelectasis left lung base. The heart size is borderline enlarged. LIVER, GALLBLADDER, AND BILIARY TREE: The liver is normal in size, shape, and attenuation. No focal hepatic lesion or biliary ductal dilatation is present. The gallbladder is unremarkable with no evidence of radiopaque gallstones, gallbladder wall thickening, or obvious pericholecystic inflammatory changes. PANCREAS: Unremarkable. SPLEEN: Unremarkable. ADRENAL GLANDS: Unremarkable. KIDNEYS AND URETERS: The kidneys are normal in size, shape, and attenuation. No hydronephrosis, hydroureter, or calculi seen. No perinephric stranding. There is a 3.6 cm exophytic cyst upper pole left kidney and a 4 cm cyst upper midpole right kidney. BLADDER: Unremarkable. GASTROINTESTINAL TRACT: There is mild nonspecific mural thickening of the pyloric channel likely spasm however there is mild proximal gastric distention. The small bowel loops opacified with oral contrast and are normal caliber. Appendix is normal caliber. There are scattered diverticula and colon without distention. The small bowel loops are normal caliber. ABDOMINAL WALL: No significant hernia is appreciated. LYMPH NODES: Normal. VASCULAR: Unremarkable. PELVIC VISCERA: Unremarkable. OSSEOUS STRUCTURES: No lytic or sclerotic process seen. CT/CT abdomen pelvis w IV con IMPRESSION: No acute intra-abdominal process seen. Scattered colonic diverticulosis without diverticulitis. Bilateral renal cysts. Pleural-based 7 mm nodule right lower lobe. Correlate with CT chest exam. Fleischner guidelines were followed.
[2022-01-20] MEDS: iohexoL 350 MG/ML 100 ML INFUS..BTL IV (15:11)
== END 2022-01-20 11:32 | disposition home or self-care (01) ==
LOC: HO.CT 11:31
PROVIDERS: Visit Provider Emergency Medicine
DX: R19.7 Diarrhea, unspecified (principal)
CPT/HCPCS: 74177; Q9967

== ENCOUNTER 2022-01-27 06:12 | Outpatient (REF) | payer OTHER, SELFPAY ==
--- NOTE | ~2022-01-27 | FL_ITS ---
EXAMINATION: XR FLUOROSCOPY WITH IMAGES CLINICAL INFORMATION: M54.16 - Radiculopathy, lumbar region COMPARISON: CT abdomen and pelvis 01/20/2022 TECHNIQUE: Fluoroscopy performed by Dr. Lucio Brunson. Fluoroscopy time: 0.1 minutes. Cumulative Dose: 11.5 mGy. DAP: 1.07 Gy-cm2. Images: 2. FINDINGS: There is a posterior midline interlaminar spinal needle at level L4-L5. There is contrast seen in the epidural space. No visible vascular communication. There are degenerative disc changes at L4-L5 with associated vertebral spurring. FL/FL guidance in treatment room IMPRESSION: Fluoroscopy for pain management procedure.
== END 2022-01-27 06:13 | disposition home or self-care (01) ==
LOC: CF 06:12
PROVIDERS: Visit Provider Internal Medicine
DX: M54.16 Radiculopathy, lumbar region (principal)
CPT/HCPCS: 62323; J1040

== ENCOUNTER → 2022-02-25 09:53 | Outpatient (BNVA) | payer OTHER, SELFPAY | PROVIDERS: PCP Registered Nurse Community Health; Visit Provider Nurse Practitioner Family | DX: M54.16 Radiculopathy, lumbar region (principal); M17.0 Bilateral primary osteoarthritis of knee; M47.816 Spondylosis without myelopathy or radiculopathy, lumbar region; M25.562 Pain in left knee | CPT/HCPCS: 99212 ==

== ENCOUNTER 2022-04-28 06:10 | Outpatient (REF) | payer OTHER, SELFPAY ==
--- NOTE | ~2022-04-28 | FL_ITS ---
EXAMINATION: XR FLUOROSCOPY WITH IMAGES CLINICAL INFORMATION: Left knee pain COMPARISON: None. TECHNIQUE: Fluoroscopy Supervised By: Dr. Lucio Brunson. Fluoroscopy Time: 0.1 minutes. Cumulative Dose: 1.09 mGy. DAP: 0.274 Gycm2. Images: 2. FINDINGS: Fluoroscopy performed during left knee nerve block. FL/FL guidance in treatment room IMPRESSION: Fluoroscopy performed in the operating room. Please see operative report for additional information.
== END 2022-04-28 06:11 | disposition home or self-care (01) ==
LOC: CF 06:10
PROVIDERS: Visit Provider Internal Medicine
DX: M25.562 Pain in left knee (principal)
CPT/HCPCS: 64450

== ENCOUNTER → 2022-08-20 10:28 | Outpatient (BNVA) | payer OTHER, SELFPAY | PROVIDERS: PCP Registered Nurse Community Health; Visit Provider Hospitalist | DX: J45.40 Moderate persistent asthma, uncomplicated (principal); J98.4 Other disorders of lung; G47.00 Insomnia, unspecified; R91.8 Other nonspecific abnormal finding of lung field | CPT/HCPCS: 99212 ==

== ENCOUNTER 2022-09-30 10:25 | Outpatient (REF) | payer OTHER, SELFPAY ==
--- NOTE | ~2022-09-30 | XR_ITS ---
EXAMINATION: XR CHEST CLINICAL INFORMATION: Other nonspecific abnormal finding of lung field COMPARISON: X-ray 06/29/2021 TECHNIQUE: 2 views of the chest were obtained. FINDINGS: The cardiomediastinal silhouette is stable The lungs are well expanded. There is no focal consolidation, edema, or effusion. No pneumothorax. Degenerative changes in the spine. XR/XR chest 2V IMPRESSION: No evidence of acute pulmonary disease.
== END 2022-09-30 10:26 | disposition home or self-care (01) ==
LOC: HO.XRAY 10:25
PROVIDERS: PCP Registered Nurse; Visit Provider Hospitalist
DX: R91.8 Other nonspecific abnormal finding of lung field (principal)
CPT/HCPCS: 71046

== ENCOUNTER 2022-10-19 10:18 | Outpatient (REF) | payer OTHER, SELFPAY ==
[2022-10-19 11:59] LABS: Alanine Aminotransferase 21 U/L (0-31); Albumin Level 3.5 g/dL (3.5-5.0); Alkaline Phosphatase 110 U/L (39-117); Anion Gap 14 (12-20); Aspartate Amino Transferase 21 U/L (5-31); Bilirubin Total 0.4 mg/dL (0.0-1.0); Blood Urea Nitrogen 9 mg/dL (9-16); Calcium 9.5 mg/dL (8.4-10.2); Carbon Dioxide 24 mmol/L (22-29); Chloride 108 mmol/L (96-108); Cholesterol 122 mg/dL; Estimated Glomerular Filt Rate > 60; Glucose Random 176 mg/dL (60-115); HDL Cholesterol 28 mg/dL; LDL Cholesterol Calculated 32 mg/dl; Potassium 4.1 mmol/L (3.3-5.1); Sodium 142 mmol/L (135-145); Total Protein 6.9 g/dL (6.5-8.0); Triglycerides 314 mg/dL
[2022-10-19 12:04] LABS: TSH reflex Free T4 1.67 uIU/mL (0.32-4.0)
[2022-10-19 12:15] LABS: Creatinine Urine 166.51 mg/dL; Microalbum/Creatinine Ratio Ur 108.7 ug/mg cr
== END 2022-10-19 10:19 | disposition home or self-care (01) ==
LOC: HO.HHCL 10:18
PROVIDERS: Visit Provider Registered Nurse
DX: E11.649 Type 2 diabetes mellitus with hypoglycemia without coma (principal); E03.9 Hypothyroidism, unspecified; Z79.4 Long term (current) use of insulin
CPT/HCPCS: 36415; 80053; 80061; 82043; 84443

== ENCOUNTER 2022-11-17 13:16 | Outpatient (REF) | payer OTHER, SELFPAY ==
[2022-11-17 16:19] LABS: Basophils Percent Auto 0.3 % (0-2); Eosinophils Absolute Auto 0.1 X10*3/uL (0.0-0.4); Eosinophils Percent Auto 1.9 % (0-4); Hematocrit 35.9 % (37.0-47.0); Hemoglobin 11.3 g/dl (12.0-16.0); Imm Gran Abs Auto 0.02 X10*3/uL (0.00-0.03); Imm Gran Pct Auto 0.3 % (0.0-0.4); Lymphocytes Absolute Auto 3.9 X10*3/uL (1.2-4.9); Lymphocytes Percent Auto 64.9 % (20-40); MANUAL DIFF FLAG SCAN; Mean Corpuscular HGB Conc 31.5 g/dl (31.0-35.0); Mean Corpuscular Hemoglobin 26.7 pg (27.0-33.0); Mean Corpuscular Volume 84.7 fL (80.0-98.0); Mean Platelet Volume 10.6 fL (9.4-12.3); Monocytes Absolute Auto 0.6 X10*3/uL (0.1-1.2); Monocytes Percent Auto 10.6 % (2-11); Neutrophils Absolute Auto 1.3 x10*3/uL (2.0-8.3); Platelet Count 257 X10*3/uL (160-400); Red Blood Count 4.24 X10*6/uL (4.20-5.50); Red Cell Distribution Width 15.7 % (11.0-16.0); SCAN SMEAR FLAG 1; White Blood Count 5.9 X10*3/uL (4.8-10.8)
[2022-11-17 17:06] LABS: Anion Gap 13 (12-20); Blood Urea Nitrogen 8 mg/dL (9-16); Calcium 9.7 mg/dL (8.4-10.2); Carbon Dioxide 27 mmol/L (22-29); Chloride 109 mmol/L (96-108); Estimated Glomerular Filt Rate > 60; Glucose Random 70 mg/dL (60-115); Potassium 4.6 mmol/L (3.3-5.1); Sodium 144 mmol/L (135-145)
[2022-11-17 17:44] LABS: SLIDE REVIEW VERIFIED
== END 2022-11-17 13:17 | disposition home or self-care (01) ==
LOC: HO.HHCL 13:16
PROVIDERS: Visit Provider Emergency Medicine
DX: R19.7 Diarrhea, unspecified (principal)
CPT/HCPCS: 36415; 80048; 85025

== ENCOUNTER 2022-11-18 12:11 | Outpatient (REF) | payer OTHER, SELFPAY ==
[2022-11-18 14:57] LABS: CDiff Gene PCR NEGATIVE (Negative)
[2022-11-18 15:41] LABS: Adenovirus F 40/41 Not Detected (Not Detect.); Astrovirus Not Detected (Not Detect.); Campylobacter Not Detected (Not Detect.); Cryptosporidium Not Detected (Not Detect.); Cyclospora cayetanensis Not Detected (Not Detect.); E. coli EAEC Not Detected (Not Detect.); E. coli EPEC Not Detected (Not Detect.); E. coli ETEC Not Detected (Not Detect.); E. coli STEC Not Detected (Not Detect.); Entamoeba histolytica Not Detected (Not Detect.); Giardia lamblia Not Detected (Not Detect.); Norovirus GI/GII Not Detected (Not Detect.); Plesiomonas shigelloides Not Detected (Not Detect.); Rotavirus A Not Detected (Not Detect.); Salmonella Not Detected (Not Detect.); Sapovirus Not Detected (Not Detect.); Shigella sp./EIEC Not Detected (Not Detect.); Vibrio Not Detected (Not Detect.); Vibrio Cholerae Not Detected (Not Detect.); Yersinia enterocolitica Not Detected (Not Detect.)
== END 2022-11-18 12:12 | disposition home or self-care (01) ==
LOC: HO.HHCL 12:11
PROVIDERS: Visit Provider Emergency Medicine
DX: R19.7 Diarrhea, unspecified (principal)
CPT/HCPCS: 87177; 87209; 87338; 87493; 87507

== ENCOUNTER 2022-12-09 12:04 | Outpatient (REF) | payer OTHER, SELFPAY ==
--- NOTE | ~2022-12-09 | US_ITS ---
EXAMINATION: US VENOUS ULTRASOUND WITH DOPPLER LOWER EXTREMITY, LEFT CLINICAL INFORMATION: Left ankle swelling. COMPARISON: None available. TECHNIQUE: Ultrasound of the deep veins is performed from the hip to the calf with compression sonography and color and pulse Doppler assessment. Spectral analysis with color-flow imaging is performed. FINDINGS: There is normal venous compression and respiratory variation and augmented flow. The visualized common femoral vein, superficial femoral vein, profunda femoral vein, popliteal vein, and the trifurcation region shows no evidence of deep venous thrombosis. If the patient's symptoms persist, followup ultrasound in 5 days 7 days might be of value to exclude proximal propagation from a non-visualized calf vein. US/US venous duplex LE IMPRESSION: No DVT demonstrated in the left lower extremity.
== END 2022-12-09 12:05 | disposition home or self-care (01) ==
LOC: HO.US 12:04
PROVIDERS: Visit Provider Family Medicine
DX: M79.662 Pain in left lower leg (principal); M25.472 Effusion, left ankle; M25.572 Pain in left ankle and joints of left foot
CPT/HCPCS: 93971

== ENCOUNTER 2022-12-10 10:30 | Outpatient (REF) | payer OTHER, SELFPAY ==
[2022-12-10 11:36] LABS: MANUAL DIFF FLAG NO
[2022-12-10 11:44] LABS: Basophils Percent Auto 0.6 % (0-2); Eosinophils Absolute Auto 0.2 X10*3/uL (0.0-0.4); Eosinophils Percent Auto 2.8 % (0-4); Hematocrit 33.6 % (37.0-47.0); Hemoglobin 10.8 g/dl (12.0-16.0); Imm Gran Abs Auto 0.01 X10*3/uL (0.00-0.03); Imm Gran Pct Auto 0.2 % (0.0-0.4); Lymphocytes Absolute Auto 3.7 X10*3/uL (1.2-4.9); Lymphocytes Percent Auto 57.4 % (20-40); Mean Corpuscular HGB Conc 32.1 g/dl (31.0-35.0); Mean Corpuscular Hemoglobin 27.3 pg (27.0-33.0); Mean Corpuscular Volume 84.8 fL (80.0-98.0); Mean Platelet Volume 10.2 fL (9.4-12.3); Monocytes Absolute Auto 0.7 X10*3/uL (0.1-1.2); Monocytes Percent Auto 11.4 % (2-11); Neutrophils Absolute Auto 1.8 x10*3/uL (2.0-8.3); Neutrophils Percent Auto 27.6 % (45-73); Platelet Count 219 X10*3/uL (160-400); Red Blood Count 3.96 X10*6/uL (4.20-5.50); Red Cell Distribution Width 16.5 % (11.0-16.0); White Blood Count 6.4 X10*3/uL (4.8-10.8)
[2022-12-10 12:21] LABS: C Reactive Protein 0.27 mg/dL (< or = 0.50); Uric Acid 5.2 mg/dL (2.4-5.7)
[2022-12-10 12:30] LABS: Erythrocyte Sedimentation Rate 17 MM/HR (0-20)
== END 2022-12-10 10:31 | disposition home or self-care (01) ==
LOC: HO.HHCL 10:30
PROVIDERS: Visit Provider Family Medicine
DX: M25.472 Effusion, left ankle (principal); M25.572 Pain in left ankle and joints of left foot
CPT/HCPCS: 36415; 84550; 85025; 85652; 86140

== ENCOUNTER 2023-03-22 09:16 | Outpatient (REF) | payer OTHER, SELFPAY ==
[2023-03-22 11:24] LABS: Hematocrit 34.5 % (37.0-47.0); Mean Corpuscular HGB Conc 31.9 g/dl (31.0-35.0); Mean Corpuscular Hemoglobin 27.5 pg (27.0-33.0); Mean Corpuscular Volume 86.3 fL (80.0-98.0); Mean Platelet Volume 9.9 fL (9.4-12.3); Platelet Count 263 X10*3/uL (160-400); Red Cell Distribution Width 15.9 % (11.0-16.0); White Blood Count 5.1 X10*3/uL (4.8-10.8)
[2023-03-22 11:35] LABS: Estimated Average Glucose 154 mg/dL
[2023-03-22 11:55] LABS: Hepatitis B Surface Antigen Negative (Negative)
[2023-03-22 11:57] LABS: HBS Num1 159.74 mIU/mL (0-7.99); HBc Num1 3.33 S/CO (0.00-0.79); HIV AB/AG Nonreactive (Nonreactive); HIV Num 1 0.09 S/CO (0.00-0.99); ~HepC Num1 0.21 S/CO (0.00-0.79); ~Hepatitis B Surface Antibody REACTIVE (Nonreactive); ~Hepatitis C Antibody Nonreactive (Nonreactive)
[2023-03-22 11:58] LABS: Syphilis Screen Nonreactive (Nonreactive)
[2023-03-22 11:59] LABS: Alanine Aminotransferase 13 U/L (0-31); Albumin Level 3.9 g/dL (3.5-5.0); Alkaline Phosphatase 98 U/L (39-117); Anion Gap 10 (12-20); Aspartate Amino Transferase 20 U/L (5-31); Bilirubin Total 0.6 mg/dL (0.0-1.0); Blood Urea Nitrogen 9 mg/dL (9-16); Calcium 9.6 mg/dL (8.4-10.2); Carbon Dioxide 30 mmol/L (22-29); Chloride 109 mmol/L (96-108); Cholesterol 137 mg/dL (<200); Estimated Glomerular Filt Rate > 60; Glucose Random 154 mg/dL (60-115); HDL Cholesterol 38 mg/dL (>40); LDL Cholesterol Calculated 73 mg/dL (<100); Potassium 4.3 mmol/L (3.3-5.1); Sodium 145 mmol/L (135-145); Triglycerides 131 mg/dL (<150)
[2023-03-22 12:01] LABS: Free T4 (Free Thyroxine) 0.96 ng/dL (0.71-1.85); Thyroid Stimulating Hormone 1.13 uIU/mL (0.32-4.0); Vitamin D 25-OH Total 60.9 ng/mL (>30)
[2023-03-22 12:14] LABS: Folate 14.9 ng/mL (> or = 4.0); Vitamin B12 723 pg/mL (200-900)
[2023-03-22 12:22] LABS: Creatinine Urine 105.28 mg/dL; Microalbum/Creatinine Ratio Ur 26.5 ug/mg cr (<30)
[2023-03-22 12:57] LABS: HBc Num2 3.25 S/CO; HBc Num3 3.18 S/CO; Hepatitis B Core Antibody Reactive (Nonreactive)
[2023-03-22 18:58] LABS: CT PCR NOT DETECTED (Not Detect.); NG PCR NOT DETECTED (Not Detect.)
== END 2023-03-22 09:17 | disposition home or self-care (01) ==
LOC: HO.HHCL 09:16
PROVIDERS: Visit Provider Student in an Organized Health Care Education/Training Program
DX: Z00.00 Encounter for general adult medical examination without abnormal findings (principal); Z11.4 Encounter for screening for human immunodeficiency virus [HIV]; Z20.2 Contact with and (suspected) exposure to infections with a predominantly sexual mode of transmission
CPT/HCPCS: 0353U; 36415; 80053; 80061; 82043; 82306; 82570; 82607; 82746; 83036; 84439; 84443; 85027; 86704; 86706; 86780; 86803; 87340; 87389

== ENCOUNTER 2023-05-02 10:21 | Outpatient (REF) | payer OTHER, SELFPAY ==
--- NOTE | ~2023-05-02 | US_ITS ---
EXAMINATION: US THYROID CLINICAL INFORMATION: History of thyroid nodules, needs follow up. COMPARISON: Thyroid ultrasound 12/22/2020 and 12/31/2019. TECHNIQUE: Linear transducer hansen-scale and color Doppler examination with attention to the region of the thyroid. FINDINGS: SIZE: Measurements of the thyroid lobes and nodules are given in sagittal, anteroposterior and transverse dimensions respectively. Right Thyroid Lobe: 4.6 x 1.5 x 1.9 cm, volume 7.0 mL. Previously 5.4 x 1.7 x 1.8 cm, volume 8.6 mL. Parenchyma: The gland echotexture is heterogeneous. Thyroid vascularity is normal. Left Thyroid Lobe: 4.1 x 1.7 x 1.8 cm, volume 6.3 mL. Previously 4.6 x 1.9 x 1.8 cm, volume 8.2 mL. Parenchyma: The gland echotexture is heterogeneous. Thyroid vascularity is normal. Isthmus: 0.7 cm in maximum AP dimension. Previously 0.7 cm. Estimated total number of nodules greater than or equal to 1 cm: 2. 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 Location: Left superior. Size: 0.9 x 1.1 x 0.5 cm, volume 0.219 mL. Previously: Not seen on the previous study. Nodule characteristics: Composition: Solid (2). Echogenicity: Hypoechoic (2). Shape: Not taller than wide (0). Margins: Smooth (0). Echogenic Foci: None (0). ACR TI-RADS total points: 4 ACR TI-RADS category: 4 2. Location: Left mid. Size: 1.0 x 0.8 x 0.4 cm, volume 0.166 mL. Previously: 1.0 x 0.6 x 1.0 cm, volume 0.3 mL. Nodule characteristics: Composition: Solid (2). Echogenicity: Hyperechoic (1). Shape: Not taller than wide (0). Margins: Smooth (0). Echogenic Foci: None (0). ACR TI-RADS total points: 3 Previous: 3 ACR TI-RADS category: 3 Previous: 3 Significant change in size (>/= 20% in 2 dimensions and minimal increase of 2 mm or 50% or greater increase in volume): No Change in features: No Change in ACR TI-RADS risk category: No 3. Location: Left mid. Size: 0.6 x 0.5 x 0.5 cm, volume 0.072 mL. Previously: Not seen on the previous study. Nodule characteristics: Composition: Solid (2). Echogenicity: Hyperechoic (1). Shape: Not taller than wide (0). Margins: Smooth (0). Echogenic Foci: None (0). ACR TI-RADS total points: 3 ACR TI-RADS category: 3 4. Location: Right mid. Size: 0.6 x 0.6 x 0.3 cm, volume 0.06 mL. Previously: 0.5 x 0.4 x 0.4 cm, volume 0.04 mL. Nodule characteristics: Composition: Solid (2). Echogenicity: Hypoechoic (2). Shape: Not taller than wide (0). Margins: Smooth (0). Echogenic Foci: None (0). ACR TI-RADS total points: 4 Previous: 4 ACR TI-RADS category: 4 Previous: 4 Significant change in size (>/= 20% in 2 dimensions and minimal increase of 2 mm or 50% or greater increase in volume): No Change in features: No Change in ACR TI-RADS risk category: No NODES: No lymphadenopathy is seen in the tissue surrounding the thyroid gland. US/US thyroid IMPRESSION: Routine sonographic surveillance of the left superior nodule. ACR TI-RADS RECOMMENDATION REFERENCE: Ultrasound-guided fine-needle aspiration, follow up ultrasound, no further followup. * TR1 (0 point) and TR2 (2 points): No FNA or followup * TR3 (3 points): FNA if more than or equal to 2.5 cm in maximum dimension, follow up ultrasound in 1, 3 and 5 years if 1.5 to 2.4 cm in maximum dimension. * TR4 (4-6 points): FNA if more than or equal to 1.5 cm in maximum dimension, follow up ultrasound in 1, 2, 3 and 5 years if 1 to 1.4 cm in maximum dimension. * TR5 (more than or equal to 7 points): FNA if more than or equal to 1 cm in maximum dimension, follow up ultrasound every year for 5 years if 0.5 to 0.9 cm in maximum dimension. * TR3, TR4 or TR5 nodules that are below the size threshold for follow up receive no followup.
== END 2023-05-02 10:22 | disposition home or self-care (01) ==
LOC: HO.US 10:21
PROVIDERS: PCP Student in an Organized Health Care Education/Training Program; Visit Provider Student in an Organized Health Care Education/Training Program
DX: E04.2 Nontoxic multinodular goiter (principal)
CPT/HCPCS: 76536

== ENCOUNTER 2023-05-05 10:47 | Outpatient (REF) | payer OTHER, SELFPAY ==
[2023-05-05 11:47] LABS: Immature Retic Fraction 18.1 % (3.0-15.9); Retic HGB Equivalent 30.7 pg (30.0-35.0); Reticulocyte Percent 1.2 % (0.5-1.8); Reticulocytes Absolute 0.045 X10*6/uL (0.026-0.095)
[2023-05-05 12:56] LABS: Erythrocyte Sedimentation Rate 18 MM/HR (0-20)
[2023-05-05 14:26] LABS: C Reactive Protein 0.41 mg/dL (< or = 0.50); Iron 46 mcg/dL (30-160); Percent Iron Saturation 15 % (15-50); Total Iron Binding Capacity 307 mcg/dL (228-428); Unsaturated Iron Binding 261 ug/dL
[2023-05-05 14:48] LABS: Ferritin 6 ng/mL (10-250)
[2023-05-06 15:19] LABS: Prot Elec - Albumin 3.7 g/dL (3.8-4.8); Prot Elec - Alpha1 0.3 g/dL (0.2-0.3); Prot Elec - Alpha2 0.7 g/dL (0.5-0.9); Prot Elec - Beta 1 0.4 g/dL (0.4-0.6); Prot Elec - Beta 2 0.4 g/dL (0.2-0.5); Prot Elec - Gamma 0.9 g/dL (0.8-1.7); Prot Elec - Total Protein 6.5 g/dL (6.1-8.1)
[2023-05-07 09:59] LABS: IgA 251 mg/dL (70-320); IgG 1113 mg/dL (600-1540); IgM 98 mg/dL (50-300)
[2023-05-11 11:03] LABS: Anti Nuclear Antibody Screen NEGATIVE (NEGATIVE)
== END 2023-05-05 10:48 | disposition home or self-care (01) ==
LOC: HO.HHCL 10:47
PROVIDERS: Visit Provider Student in an Organized Health Care Education/Training Program
DX: D64.9 Anemia, unspecified (principal)
CPT/HCPCS: 36415; 82728; 82784; 83540; 84165; 85045; 85652; 86038; 86140; 86334

== ENCOUNTER 2023-05-10 10:23 | Outpatient (REF) | payer OTHER, SELFPAY ==
[2023-05-10 12:42] LABS: Total Protein Urine Random 34 mg/dL (<12)
[2023-05-15 10:54] LABS: PEU-Protein Creat Ratio Rand 0.308 (0.024-0.184); PEU-Rand. Prot/Creat Ratio 308 mg/g creat (24-184); PEU-Random Ur. Gamma Globulin 20 %; PEU-Random Urine A1 Globulin 13 %; PEU-Random Urine A2 Globulin 13 %; PEU-Random Urine Albumin 31 %; PEU-Random Urine Beta Globulin 22 %; PEU-Random Urine Creatinine 143 mg/dL (20-275); PEU-Random Urine Protein 44 mg/dL (5-24)
== END 2023-05-10 10:24 | disposition home or self-care (01) ==
LOC: HO.HHCL 10:23
PROVIDERS: Visit Provider Student in an Organized Health Care Education/Training Program
DX: D64.9 Anemia, unspecified (principal)
CPT/HCPCS: 82570; 84156; 84166

== ENCOUNTER 2023-05-16 | Outpatient (REF) | payer OTHER, SELFPAY ==
[2023-05-19 04:23] LABS: HPV mRNA E6/E7 rflx Not Detected (Not Detected)
== END 2023-05-16 00:01 | disposition home or self-care (01) ==
LOC: HO.HHCLNP
PROVIDERS: Visit Provider Advanced Practice Midwife
DX: Z12.4 Encounter for screening for malignant neoplasm of cervix (principal); Z78.0 Asymptomatic menopausal state
CPT/HCPCS: 87624; 88142

== ENCOUNTER 2023-05-27 09:24 | Outpatient (REF) | payer OTHER, SELFPAY | END 2023-05-27 09:25 | disposition home or self-care (01) | LOC: HO.MAMMO 09:24 | PROVIDERS: PCP Student in an Organized Health Care Education/Training Program; Visit Provider Student in an Organized Health Care Education/Training Program | DX: Z12.31 Encounter for screening mammogram for malignant neoplasm of breast (principal) | CPT/HCPCS: 77063; 77067 ==

== ENCOUNTER → 2023-05-27 09:45 | Outpatient (BNV) | payer OTHER, SELFPAY | PROVIDERS: PCP Student in an Organized Health Care Education/Training Program; Visit Provider Radiology Diagnostic Radiology | DX: Z12.31 Encounter for screening mammogram for malignant neoplasm of breast (principal) | CPT/HCPCS: 77063; 77067 ==

== ENCOUNTER 2023-05-27 09:59 | Outpatient (REF) | payer OTHER, SELFPAY ==
--- NOTE | 2023-05-27 10:04 | EMG_ITS ---
Chief complaint: Right hand pain and numbness, milder on left History of diabetes. History of goiter. History of right Carpal Tunnel Syndrome surgery, patient cannot recall when. Left elbow removal of hardware on 08/12/[address] Fabian. Displaced fracture of olecranon process without intraarticular extension of left ulna, initial encounter for closed fracture done on 05/01/20. Reason for referral: Evaluate for Carpal Tunnel Syndrome Referred by: Dr. Nahomy Kessler Procedure done: Bilateral upper extremities NCS/EMG Precautions and/or limitations: None The limb temperature was monitored continuously and remained between 32-36 degrees C during the performance of the NCS. Ulnar motor NCS was performed with moderate elbow flexion between 70-90 degrees, with across-elbow distance of 10 cm. Nerve Conduction Studies Anti Sensory Summary Table ?Stim Site NR Onset (ms) Norm Onset (ms) Peak (ms) Norm Peak (ms) O-P Amp (?V) Norm O-P Amp Site1 Site2 Delta-0 (ms) Dist (cm) Satinder (m/s) Norm Satinder (m/s) Left Median Anti Sensory (2nd Digit) Wrist ? 3.2 4.3 <3.6 8.0 >10 Wrist 2nd Digit 3.2 14.0 44 Right Median Anti Sensory (2nd Digit) Wrist ? 2.8 3.8 <3.6 17.5 >10 Wrist 2nd Digit 2.8 14.0 50 Right Radial Anti Sensory (Thumb) Forearm ? 1.3 1.8 <3.1 21.9 Forearm Thumb 1.3 0.0 Left Ulnar Anti Sensory (5th Digit) Wrist ? 2.8 3.5 <3.7 2.8 >15.0 Wrist 5th Digit 2.8 14.0 50 Right Ulnar Anti Sensory (5th Digit) Wrist ? 2.1 2.8 <3.7 4.4 >15.0 Wrist 5th Digit 2.1 14.0 67 Motor Summary Table ?Stim Site NR Onset (ms) Norm Onset (ms) O-P Amp (mV) Norm O-P Amp iAmp (mV) Amp (1st) (%) Site1 Site2 Delta-0 (ms) Dist (cm) Satinder (m/s) Norm Satinder (m/s) Left Median Motor (Abd Poll Brev) Wrist ? 3.7 <3.9 5.5 >4.5 6.7 100.0 Elbow Wrist 3.6 19.0 53 >45 Elbow ? 7.3 6.1 7.4 110.9 Right Median Motor (Abd Poll Brev) Wrist ? 3.8 <3.9 6.8 >4.5 8.9 100.0 Elbow Wrist 3.5 20.0 57 >45 Elbow ? 7.3 6.7 8.8 98.5 Right Ulnar Motor (Abd Dig Minimi) Wrist ? 2.6 <3.0 9.6 >5 11.0 100.0 B Elbow Wrist 2.9 18.0 62 >45 B Elbow ? 5.5 8.1 9.6 84.4 A Elbow B Elbow 2.0 10.0 50 >45 A Elbow ? 7.5 7.9 9.5 82.3 Left UlnarH Motor (FDI) Wrist ? 3.5 <3.0 5.4 >5 6.4 100.0 B Elbow Wrist 3.5 16.5 47 B Elbow ? 6.6 5.3 6.1 98.1 A Elbow B Elbow 3.1 10.0 32 >45 A Elbow ? 8.0 4.8 5.7 88.9 1.4 0.0 >45 Right UlnarH Motor (FDI) Wrist ? 3.3 <3.0 5.0 >5 6.0 100.0 B Elbow Wrist 3.3 18.0 55 B Elbow ? 6.5 4.9 6.1 98.0 A Elbow B Elbow 3.2 10.0 31 >45 A Elbow ? 8.4 4.5 5.5 90.0 1.9 0.0 >45 EMG ?Side Muscle Nerve Root Ins Act Fibs Psw Amp Dur Poly Recrt Int Pat Comment Right 1stDorInt Ulnar C8-T1 Nml Nml Nml Nml Nml 0 Nml Complete Right FlexCarRad Median C6-7 Nml Nml Nml Nml Nml 0 Nml Complete Right Biceps Musculocut C5-6 Nml Nml Nml Nml Nml 0 Nml Complete Right Triceps Radial C6-7-8 Nml Nml Nml Nml Nml 0 Nml Complete Right FlexCarpiUln Ulnar C8,T1 Nml Nml Nml Nml Nml 0 Nml Complete Right Deltoid Axillary C5-6 Nml Nml Nml Nml Nml 0 Nml Complete Left 1stDorInt Ulnar C8-T1 Nml Nml Nml Nml Nml 0 Nml Complete Left FlexCarRad Median C6-7 Nml Nml Nml Nml Nml 0 Nml Complete Left Biceps Musculocut C5-6 Nml Nml Nml Nml Nml 0 Nml Complete Left Triceps Radial C6-7-8 Nml Nml Nml Nml Nml 0 Nml Complete Left Deltoid Axillary C5-6 Nml Nml Nml Nml Nml 0 Nml Complete Left FlexCarpiUln Ulnar C8,T1 Nml Nml Nml Nml Nml 0 Nml Complete FINDINGS: Bilateral ulnar motor nerves, recording at FDI, showed prolonged distal latency, normal amplitude and slow conduction velocity across the elbow. Bilateral median sensory nerves showed prolonged peak latency. Bilateral median sensory nerves showed normal peak latency but small amplitude. All other nerves tested were within normal. Concentric needle EMG was performed in selected muscles of the bilateral upper extremities. Study did not reveal signs of electric abnormalities as shown in the table below. IMPRESSION: 1. This is an abnormal study. 2. There is electrodiagnostic evidence for bilateral ulnar neuropathy at the elbow. 3. There is electrodiagnostic evidence for bilateral mild median neuropathy at the wrist, consistent with carpal tunnel syndrome. 3. There is no electrodiagnostic evidence for brachial plexopathy, or cervical radiculopathy. Thank you for your kind referral. Rianna Mcelroy MD, DORIS Board Certified, [place] [employer] and [employer] (ABPMR) Board Certified, [place] Board [employer] Electrodiagnostic [employer] (ABEM) CODIN [id number] x 2 MTDD
== END 2023-05-27 10:00 | disposition home or self-care (01) ==
LOC: HO.NEURO 09:59
PROVIDERS: PCP Student in an Organized Health Care Education/Training Program; Visit Provider Student in an Organized Health Care Education/Training Program
DX: R20.0 Anesthesia of skin (principal); R20.2 Paresthesia of skin
CPT/HCPCS: 95886; 95911

== ENCOUNTER → 2023-05-27 10:04 | Outpatient (BNV) | payer OTHER, SELFPAY | PROVIDERS: PCP Student in an Organized Health Care Education/Training Program; Visit Provider Physical Medicine & Rehabilitation | DX: G56.03 Carpal tunnel syndrome, bilateral upper limbs (principal); G56.23 Lesion of ulnar nerve, bilateral upper limbs; G56.13 Other lesions of median nerve, bilateral upper limbs | CPT/HCPCS: 95886; 95911 ==

== ENCOUNTER 2023-07-12 10:02 | Outpatient (AMB) | payer OTHER, SELFPAY ==
[2023-07-12 10:04] VITALS: BP 172/70; PULSE 65; BMI 35.5
--- NOTE | 2023-07-12 10:04 | A.OFFVIS_ITS ---
Intake Vital Signs 07/12/23 10:04 Height 5 ft 3 in Weight 200 lb 9.93 oz BMI 35.5 BP 172/70 H Blood Pressure Location Lt brachial Position Sitting Pulse 65 Intake Visit Reasons: Colonoscopy screening Intake Note: Arlette presents in the office as a new patient colonoscopy screening. CC: No concerns just due for a colonoscopy. Estate And Trust Tax Principal Required: Yes Estate And Trust Tax Principal Name: daughter Allergies lisinopril Allergy (Intermediate, Verified 07/12/23 10:07) itching Penicillins Allergy (Intermediate, Verified 07/12/23 10:07) rash/hives HPI Colonoscopy screening HPI Details LAST VISIT: Findings: Terminal Ileum: Not evaluated Cecum:? Normal Ascending Colon:? A 2 cms sessile polyp in the proximal AC (over a fold) removed with a hot snare.? Two 10-15 mm sessile polyps in the distal ascending colon removed with a hot snare. A 5-6 mm sessile polyp in the distal ascending colon removed with a cold biopsy Transverse Colon:? A 12-15 mm sessile polyp removed with a hot snare Descending Colon:? A 10 mm sessile polyp removed with a hot snare. Moderate diverticulosis Sigmoid Colon:? Severe diverticulosis Rectum:? Enlarged rectum due to presence of the rectocele. Ano-rectum:? Small internal hemorrhoids Colon preparation: Excellent ? Impression and Post Procedure Diagnosis: Colonoscopy Findings: Six medium sized polyps removed Moderate to severe diverticulosis seen in the left colon Small hemorrhoids on retroflexed exam. Plan: Await pathology results Repeat Colonoscopy interval based on path results - in 2 years if multiple polyps are adenomatous and 5 years if polyps are hyperplastic. TODAY'S VISIT Diagnosis A. Colon, ascending, polypectomy: Fragments of tubular adenoma; no high-grade dysplasia or carcinoma seen. B. Colon, distal ascending, polypectomies: Fragments of tubular and tubulovillous adenomas; no high- grade dysplasia or carcinoma seen. C. Colon, transverse, polypectomy: Fragments of tubular adenoma; no high-grade dysplasia or carcinoma seen. D. Colon, descending, polypectomy: Fragments of tubular adenoma; no high-grade dysplasia or carcinoma seen. TODAY'S VISIT Patient is here today to discuss going for colonoscopy. As mentioned above patient had colonoscopy in January of 2021 and was supposed to return in 2 years to repeat due to medium to large polyps. All polyps were tubular adenomas witho ut high-grade dysplasia or carcinoma. Patient had no issues with anesthesia in the past. No history of sleep apnea. On low-dose aspirin. Patient reports postprandial loose stools. History of cholecystectomy back in [place] few years ago. Patient was given script for fiber and Colace, however she is not taking them. Patient reports that she feels constipated sometimes. Patient denies any melena, hematochezia, unintentional weight loss or ribbon like stools. Patient reports occasional dyspepsia, however states that she is taking omeprazole every morning and for the most part her symptoms are suppressed. Occasional postprandial epigastric pain and reflux. Patient patient reports occasional dysphagia with dry food. Patient reports that she has to drink fluids in order to swallow. Patient denies any abdominal pain or discomfort [facility] Medical History (Updated 07/12/23 @ 10:38 by DARRELL Zepeda-) Dysphagia Chronic restrictive lung disease Insomnia On beta anish at home History of COVID-19 Asthma Chronic constipation Broken arm CAD (coronary artery disease) HTN (hypertension) Hyperlipidemia Diabetes mellitus Dyspnea Non-toxic multinodular goiter Hypothyroidism Surgical History History of surgery Hx of elbow surgery History of surgery on arm Hx of cholecystectomy History of partial hysterectomy Hx of cataract surgery History of tubal ligation Hx of tonsillectomy History of carpal tunnel release Hx of colonoscopy Family History Father Throat cancer Heart disease CVD (cardiovascular disease) Mother Stomach cancer Type 2 diabetes mellitus Arthritis of knee Hypertension Social History Household Members: None Alcohol intake: never Patient Tobacco Use Status: Never used Tobacco Second Hand Smoke Exposure: No Current occupational status: retired Current occupation: right handed Review of Systems Const Denies weight gain and Denies weight loss ENT Reports no additional complaints, Reports dysphagia and Denies odynophagia Card Reports no additional complaints Resp Reports no additional complaints GI Denies abdominal pain, Denies belching, Denies melena, Denies bloating, Reports constipation, Reports dysphagia, Denies excessive flatus, Denies dyspepsia, Reports heartburn (Occasional), Denies diarrhea, Reports loose stools (Postprandially), Denies nausea, Denies odynophagia and Denies vomiting Musc Reports no additional complaints Neuro Reports no additional complaints Psych Reports no additional complaints Endo Reports no additional complaints Physical Exam Vital Signs: Last Vital Signs Pulse 65 07/12/23 10:04 BP 172/70 H 07/12/23 10:04 BMI result Body Mass Index 35.5 Const General: healthy appearing and no acute distress Nutritional Appearance: obese Orientation/consciousness: patient oriented x3 Resp Effort & Inspection: normal respiratory effort, able to speak in complete sentences, no tracheal deviation and symmetric chest movement Auscultation: clear to auscultation bilaterally Cardio Rate: regular rate GI Inspection: Yes normal to inspection, No distended and Yes obesity Palpation (GI): Soft to palpation, not firm, nontender and No hepatosplenomegaly present Auscultation: normal bowel sounds General: Yes no CVA tenderness Back/Spine/Pelvis Back: no CVA tenderness Skin General skin exam: elasticity normal, turgor normal and dry skin Neuro General: patient oriented x3 Psych Appearance: grossly normal Mental Status: mental status grossly normal Assessment & Plan Assessment & Plan (1) Encounter for screening colonoscopy: Code(s): Z12.11 - Encounter for screening for malignant neoplasm of colon (2) Chronic constipation: Code(s): K59.09 - Other constipation (3) GERD (gastroesophageal reflux disease): Code(s): K21.9 - Gastro-esophageal reflux disease without esophagitis Qualifiers: Esophagitis presence: esophagitis presence not specified Qualified Code(s): K21.9 - Gastro-esophageal reflux disease without esophagitis (4) Postprandial diarrhea: Code(s): K52.9 - Noninfective gastroenteritis and colitis, unspecified (5) Dysphagia: Code(s): R13.10 - Dysphagia, unspecified Qualifiers: Dysphagia type: pharyngoesophageal phase Qualified Code(s): R13.14 - Dysphagia, pharyngoesophageal phase Plan Patient can continue taking omeprazole. Discussed with patient and her daughter avoiding dietary triggers and late night snacking. Staying upright for minimal 3 hours after meals discussed with patient. Patient was encouraged to avoid food that is greasy or fried. History of cholecystectomy postprandial diarrhea is common. Patient will try to take fiber to help her bulk stools and then senna in the evening to empty her bowels better. I will see patient in 5 and we will book upper endoscopy and colonoscopy for her today. Both patient and her daughter are agreeable to plan of care and verbalizes understanding of instructions. They were given the opportunity to ask questions and all questions answered. Thank you for allowing me participate in her care Medications: New sennosides (Natural Senna Laxative) 17.2 mg (2 x 8.6 mg) PO BEDTIME 60 tabs 1RF constipation K59.00 - Constipation, unspecified methylcellulose (laxative) (Fiber Therapy (methylcellulose)) 500 mg PO DAILY 30 tabs 3RF Coding Level of Care Code Est Pt Level 4 (47856) Diagnoses Encounter for screening colonoscopy Z12.11 Chronic constipation K59.09 Gastroesophageal reflux disease, unspecified whether esophagitis present K21.9 Esophagitis presence: esophagitis presence not specified Postprandial diarrhea K52.9 Pharyngoesophageal dysphagia R13.14 Dysphagia type: pharyngoesophageal phase Time Spent (min) 40 Comment 25 minutes spent with patient and additional 15 minutes spent reviewing her records
== END 2023-07-12 13:22 | disposition home or self-care (01) ==
PROVIDERS: PCP Student in an Organized Health Care Education/Training Program; Visit Provider Nurse Practitioner Family
DX: K21.9 Gastro-esophageal reflux disease without esophagitis (principal); K59.09 Other constipation; K52.9 Noninfective gastroenteritis and colitis, unspecified; R13.14 Dysphagia, pharyngoesophageal phase; Z12.11 Encounter for screening for malignant neoplasm of colon
CPT/HCPCS: 99214

== ENCOUNTER → 2023-07-12 10:02 | Outpatient (BNVA) | payer OTHER, SELFPAY | PROVIDERS: PCP Student in an Organized Health Care Education/Training Program; Visit Provider Nurse Practitioner Family | DX: Z12.11 Encounter for screening for malignant neoplasm of colon (principal); K59.09 Other constipation; K21.9 Gastro-esophageal reflux disease without esophagitis; K52.9 Noninfective gastroenteritis and colitis, unspecified; R13.14 Dysphagia, pharyngoesophageal phase | CPT/HCPCS: 99212 ==

== ENCOUNTER 2023-07-27 09:59 | Outpatient (AMB) | payer OTHER, SELFPAY ==
--- NOTE | 2023-07-27 10:06 | MHC.OFFVIS ---
Intake Vital Signs 07/27/23 10:07 Height 5 ft 3 in Weight 200 lb BMI 35.4 Handedness Right Intake Visit Reasons: New Prob - right trigger middle finger Intake Note: Arlette is a 78 year old right hand dominant female who presents today for a evaluation for her right trigger middle finger. EMG done on 05/27/23. Patient reports that her middle finger started to lock about 7 months ago. She states that her finger tends to lock more at night and it causes her a lot of pain. Allergies lisinopril Allergy (Intermediate, Verified 07/27/23 10:12) itching Penicillins Allergy (Intermediate, Verified 07/27/23 10:12) rash/hives HPI New Prob - right trigger middle finger HPI Details 78-year-old female, who is [place] speaking, presents in the office today for an evaluation of right middle finger pain with numbness and tingling in the bilateral hands. Patient reports her middle finger began to lock about 7 months ago, in 12/2023. She claims the finger tends to lock more at night, which causes her a lot of pain. Patient has an appointment to be evaluated by Neurology in 09/2023. Patient has a significant medical history of diabetes mellitus with insulin dependence. [facility] Medical History (Updated 07/27/23 @ 10:55 by Marcela Wylie) Dysphagia Chronic restrictive lung disease Insomnia On beta anish at home History of COVID-19 Asthma Chronic constipation Broken arm CAD (coronary artery disease) HTN (hypertension) Hyperlipidemia Diabetes mellitus Dyspnea Non-toxic multinodular goiter Hypothyroidism Surgical History History of surgery Hx of elbow surgery History of surgery on arm Hx of cholecystectomy History of partial hysterectomy Hx of cataract surgery History of tubal ligation Hx of tonsillectomy History of carpal tunnel release Hx of colonoscopy Family History Father Throat cancer Heart disease CVD (cardiovascular disease) Mother Stomach cancer Type 2 diabetes mellitus Arthritis of knee Hypertension Social History Household Members: None Alcohol intake: never Patient Tobacco Use Status: Never used Tobacco Second Hand Smoke Exposure: No Current occupational status: retired Current occupation: right handed Review of Systems Const All systems reviewed & are unremarkable except as noted in HPI and below Physical Exam Vital Signs: BMI result Body Mass Index 35.4 Const General: cooperative, healthy appearing and no acute distress Resp Effort & Inspection: normal respiratory effort and able to speak in complete sentences Cardio Rate: regular rate Peripheral pulses: Peripheral pulses 2+ throughout GI Palpation (GI): Soft to palpation Skin Lesions: no lesions Rashes: no rashes Extrem Other: Right hand: Normal to inspection. Prior carpal tunnel surgical scar noted. No ecchymosis, erythema, or edema. Able to perform full finger flexion, extension, abduction, adduction, finger cross, okay sign, and thumbs up without deficit. Able to make a closed fist. Active triggering right middle finger. Tenderness to palpation over the A1 viktoria. Moderate jamal noted. Sensation intact. Capillary refill is brisk. Radial pulse intact. Assessment & Plan Assessment & Plan (1) Right carpal tunnel syndrome: Code(s): G56.01 - Carpal tunnel syndrome, right upper limb (2) Cubital tunnel syndrome on right: Code(s): G56.21 - Lesion of ulnar nerve, right upper limb (3) Trigger finger, right middle finger: Code(s): M65.331 - Trigger finger, right middle finger (4) Diabetes mellitus: Comment: taking insulin & oral meds Code(s): E11.9 - Type 2 diabetes mellitus without complications Plan Ms. Adrián Palma is a 78-year-old female, who is [place] speaking, presents in the office today for an evaluation of right middle finger pain with numbness and tingling in the bilateral hands. Patient reports her middle finger began to lock about 7 months ago, in 12/2023. She claims the finger tends to lock more at night, which causes her a lot of pain. Patient has an appointment to be evaluated by Neurology in 09/2023. Patient has a significant medical history of diabetes mellitus with insulin dependence. Patient does have an EMG study which suggests she has mild carpal and cubital tunnel, as well as a right middle finger trigger finger. Her last A1c was in 03/2023 with a result of 7. She would like to proceed with surgical intervention for the trigger finger. Regarding her abnormal EMG study the patient reports numbness and tingling throughout the entire upper extremity extending to the should distally, which is not consistent with her EMG study. Patient has a history of a prior carpal tunnel release roughly in 2012. Due to this I feel the patient should be evaluated by Dr. Mendez prior to booking for surgery for either cubital or carpal tunnel release. Follow-up will be at the next available appointment with Dr. Mendez, or sooner if needed. EMG of the bilateral upper extremities, obtained on 05/27/2023, revealed: 1. This is an abnormal study. 2. There is electrodiagnostic evidence for bilateral ulnar neuropathy at the elbow. 3. There is electrodiagnostic evidence for bilateral mild median neuropathy at the wrist, consistent with carpal tunnel syndrome. 3. There is no electrodiagnostic evidence for brachial plexopathy, or cervical radiculopathy. Patient Instructions: Scribed by Marcela Wylie emergency medical services coordinator, for Brittany Barth PA-C on 07/27/2023 at 10:01 am, EST. Coding Level of Care Code Est Pt Level 4 (21018) Diagnoses Right carpal tunnel syndrome G56.01 Cubital tunnel syndrome on right G56.21 Trigger finger, right middle finger M65.331 Diabetes mellitus E11.9
[2023-07-27 10:07] VITALS: BMI 35.4
== END 2023-07-27 11:35 | disposition home or self-care (01) ==
PROVIDERS: PCP Student in an Organized Health Care Education/Training Program; Visit Provider Physician Assistant
DX: G56.01 Carpal tunnel syndrome, right upper limb (principal); G56.21 Lesion of ulnar nerve, right upper limb; M65.331 Trigger finger, right middle finger; E11.9 Type 2 diabetes mellitus without complications
CPT/HCPCS: 99213

== ENCOUNTER → 2023-07-27 09:59 | Outpatient (BNVA) | payer OTHER, SELFPAY | PROVIDERS: PCP Student in an Organized Health Care Education/Training Program; Visit Provider Physician Assistant | DX: G56.01 Carpal tunnel syndrome, right upper limb (principal); G56.21 Lesion of ulnar nerve, right upper limb; M65.331 Trigger finger, right middle finger; E11.9 Type 2 diabetes mellitus without complications | CPT/HCPCS: 99212 ==

== ENCOUNTER 2023-08-18 11:24 | Outpatient (REF) | payer OTHER, SELFPAY ==
--- NOTE | ~2023-08-18 | MM_ITS ---
EXAMINATION: BONE DENSITOMETRY CLINICAL INDICATION: History of osteopenia. COMPARISON: Previous BD dated 02/12/2021 and baseline BD dated 08/02/2006. TECHNIQUE: Using a [employer] DXA System (software version: 13.1) manufactured by [employer], dual-energy x-ray absorptiometry was performed of the lumbar spine and left hip. The images are of good technical quality. Summary results are attached. FINDINGS: LEFT FEMUR, NECK: Current: BMD 0.754 g/cm2, Z-score -0.6, T-score -2.0, osteopenia. Prior: BMD 0.760 g/cm2. Baseline: BMD 0.835 g/cm2. LEFT FEMUR, TOTAL: Current: BMD 0.835 g/cm2, Z-score -0.1, T-score -1.4, osteopenia, 7.8% decrease from previous, 11.8% decrease from baseline (<5% change is not significant). Prior: BMD 0.906 g/cm2. Baseline: BMD 0.947 g/cm2. AP SPINE L1-L4: Current: BMD 1.074 g/cm2, Z-score 0.0, T-score -0.9, normal, 3.4% decrease from previous, 4.7% decrease from baseline (<5% change is not significant). Prior: BMD 1.112 g/cm2. Baseline: BMD 1.127 g/cm2. IDENTIFIED RISK FACTORS: Early menopause, history of fracture (adult), bilateral oophorectomy, hysterectomy, secondary osteoporosis (type 1 diabetes, hyperthyroidism). HISTORY OF FRACTURE: Elbow. MEDICATIONS: Calcium or multivitamin. Vitamin D. MM/XR DEXA axial skeleton IMPRESSION: 1. DIAGNOSIS: Osteopenia based on the lowest T-score value of -2.0 in the femoral neck applying World Health Organization criteria. 2. 10-YEAR FRACTURE RISK PREDICTION, FRAX: Major osteoporotic fracture (clinical spine, forearm, hip or shoulder) 11.9%. Hip fracture 2.9%. 3. Treatment Recommendations: NOF guidelines recommend consideration for treatment in postmenopausal women and men age 50 and older presenting with the following: -A hip or vertebral (clinical or morphometric) fracture. -T-score less than or equal to -2.5 at the femoral neck or spine after appropriate evaluation to exclude secondary causes. -Low bone mass at the hip or spine and a 10-year fracture probability by FRAX of greater than or equal to 3% for hip fracture or greater than or equal to 20% for major osteoporotic fracture based on the [place] adapted WHO algorithm. 4. Other Recommendations: All treatment decisions require clinical judgment and consideration of individual patient factors, including patient preferences, comorbidities, previous drug use, risk factors not captured in the FRAX model (e.g. frailty, falls, vitamin D deficiency, increased bone turnover, interval significant decline in bone density) and possible under or overestimation of fracture risk by FRAX. Additional medical evaluation for secondary cause of low bone mineral density may be appropriate. FUTURE SCAN RECOMMENDATION: People with diagnosed cases of osteoporosis or at high risk for fracture should have regular bone mineral density tests. For patients eligible for Medicare, routine testing is allowed once every 2 years. The testing frequency can be increased to one year for patients who have rapidly progressing disease, those who are receiving or discontinuing medical therapy to restore bone mass, or have additional risk factors.
== END 2023-08-18 11:25 | disposition home or self-care (01) ==
LOC: HO.MAMMO 11:24
PROVIDERS: PCP Student in an Organized Health Care Education/Training Program; Visit Provider Advanced Practice Midwife
DX: N95.9 Unspecified menopausal and perimenopausal disorder (principal); M85.80 Other specified disorders of bone density and structure, unspecified site
CPT/HCPCS: 77080

== ENCOUNTER 2023-08-30 09:27 | Outpatient (AMB) | payer OTHER, SELFPAY ==
--- NOTE | 2023-08-30 09:51 | MHC.OFFVIS ---
Vital Signs 08/30/23 09:52 Height 5 ft 3 in Weight 200 lb BMI 35.4 Intake Visit Reasons: OV-right trigger middle finger Intake Note: Arlette 78 yr old female presents today for a follow up visit for her right trigger middle finger, Carpal tunnel and cubital tunnel symptoms. Last seen with Armando Soto who would like patient to be further evaluated with Dr. Mendez due to having hx of CTR in the past but doesn't recall with who. States she is having CTS in her entire hand. She is interested in surgery and would like to have it done beginning of November or ending of October due to having another surgery late November. Patient is diabetic. Last A1C was a 7.o on 03/22/23. Allergies lisinopril Allergy (Intermediate, Verified 08/30/23 09:52) itching Penicillins Allergy (Intermediate, Verified 08/30/23 09:52) rash/hives HPI HPI OV-right trigger middle finger: Details: Arlette is a 78 year old right hand dominant [place] speaking Diabetic woman who presents for a NCS review of her bilateral hand numbness, & right middle trigger finger. She complains of numbness to all fingers of her right hand. Symptoms intermittent, but daily, worse at night, with dense numbness in the small finger. She also complains of painful locking & catching of the middle finger. She says her right hand symptoms have been present since ~01/2023 She says she has difficulty fully extending her middle finger, and she has been trying to do some ROM exercises using an exercise ball at home. She has a hx of a right carpal tunnel release done in ~2012. She claims she had good relief of her symptoms following that surgery. She believes she began to get numbness in her right hand again about 8 months ago or more. She is scheduled for a colonoscopy & EEG at the end of November. She has a Hx of chronic restrictive lung disease, CAD, and DM. Her last HgA1c was 7.0% on 03/22/23. I performed a chart review fighting out the following: She has a Hx of a left elbow olecranon ORIF with tension band wiring by Dr. Da Silva, DOS: 05/01/20. She had a removal of implants from her left olecranon done by Dr. Fabian, DOS: 08/12/21. There does not appear to be any evidence of a left ulnar nerve transposition. [facility] Medical History (Updated 08/30/23 @ 10:27 by Jose Antonio Snider) Dysphagia Chronic restrictive lung disease Insomnia On beta anish at home History of COVID-19 Asthma Chronic constipation Broken arm CAD (coronary artery disease) HTN (hypertension) Hyperlipidemia Diabetes mellitus Dyspnea Non-toxic multinodular goiter Hypothyroidism Surgical History History of surgery Hx of elbow surgery History of surgery on arm Hx of cholecystectomy History of partial hysterectomy Hx of cataract surgery History of tubal ligation Hx of tonsillectomy History of carpal tunnel release Hx of colonoscopy Family History Father Throat cancer Heart disease CVD (cardiovascular disease) Mother Stomach cancer Type 2 diabetes mellitus Arthritis of knee Hypertension Social History Household Members: None Alcohol intake: never Patient Tobacco Use Status: Never used Tobacco Second Hand Smoke Exposure: No Current occupational status: retired Current occupation: right handed Review of Systems Const All systems reviewed & are unremarkable except as noted in HPI and below Physical Exam Vital Signs: BMI result Body Mass Index 35.4 Const General: cooperative, healthy appearing and no acute distress Orientation/consciousness: patient oriented x3 HEENT Head: Yes normocephalic and Yes atraumatic Eyes EOM: EOMs intact bilaterally Resp Effort & Inspection: normal respiratory effort and able to speak in complete sentences Cardio Jugular venous distension: no JVD Skin General skin exam: turgor normal Rashes: no rashes Neuro General: patient oriented x3 Extrem Other: Evaluation of Right Upper Extremity: The patient is alert, oriented, and in no acute distress Neuro: Decreased sensation in the right median nerve distribution today in clinic. Dense numbness in the right ulnar nerve distribution. No thenar or intrinsic wasting Good APB muscle belly firing and weak finger cross Vascular: Cap refill brisk ROM: She can make a weak fist and extend all her digits She has a mild flexion contracture of the right middle finger PIP joint Visible & palpable locking & catching of the middle finger Tender over the middle finger a1 viktoria Skin: No lacerations or abrasions. General: No Ecchymosis. No Erythema or evidence of infection. Radiographs: 3 views of the left elbow from 07/13/21 show an elbow ORIF of olecranon fx using 2 K-wires and tension band wire. Nerve Conduction Study: IMPRESSION: 1. This is an abnormal study. 2. There is electrodiagnostic evidence for bilateral ulnar neuropathy at the elbow. 3. There is electrodiagnostic evidence for bilateral mild median neuropathy at the wrist, consistent with carpal tunnel syndrome. 3. There is no electrodiagnostic evidence for brachial plexopathy, or cervical radiculopathy. Rianna Mcelroy MD, DORIS 05/27/23 Psych Appearance: grossly normal Affect: normal affect Attitude: cooperative Assessment & Plan Assessment & Plan (1) Right carpal tunnel syndrome: Code(s): G56.01 - Carpal tunnel syndrome, right upper limb Category: Medical (2) Cubital tunnel syndrome on right: Code(s): G56.21 - Lesion of ulnar nerve, right upper limb Category: Medical (3) Trigger finger, right middle finger: Code(s): M65.331 - Trigger finger, right middle finger Category: Medical (4) History of carpal tunnel surgery of right wrist: Code(s): Z98.890 - Other specified postprocedural states Category: Surgical (5) Carpal tunnel syndrome of left wrist: Code(s): G56.02 - Carpal tunnel syndrome, left upper limb Category: Medical (6) Cubital tunnel syndrome on left: Code(s): G56.22 - Lesion of ulnar nerve, left upper limb Category: Medical (7) Diabetes mellitus: Comment: taking insulin & oral meds Code(s): E11.9 - Type 2 diabetes mellitus without complications Category: Medical (8) CAD (coronary artery disease): Comment: circumflex territory ischemia on nuclear stress testing, no invasive strategy due to lack of symptoms Code(s): I25.10 - Atherosclerotic heart disease of [place] coronary artery without angina pectoris Category: Medical (9) Chronic restrictive lung disease: Code(s): J98.4 - Other disorders of lung Category: Medical Plan Assessment & Plan: 1. Right carpal tunnel syndrome, mild Recurrent S/P release, DOS: ~2012 Decreased subjective sensation in clinic today. 2. Right cubital tunnel syndrome With dense numbness 3. Right middle finger trigger finger With an early mild flexion contracture I educated her about these conditions I discussed operative and non-operative treatment options The patient would like to proceed with surgery The risks and benefits of operative treatment were discussed with the patient and the patient wishes to proceed with surgery. These risks include, but are not limited to risk of damage to blood vessels, nerves, tendons, infection, recurrence, incomplete relief of preoperative symptoms, persistent pain, possible need for further surgery and the risks associated with regional blocks and anesthesia. The plan is to take the patient to the operating room sometime in the next few weeks for the following procedures: 1. Right cubital tunnel release vs transposition, under general 2. Right REPEAT carpal tunnel release, under general 3. Right middle finger trigger release, under general All of the preoperative paperwork including the consent was reviewed today. All the patient's questions were answered. The patient understands that they will be contacted by our veterinary surgery technologist soon to schedule this procedure. She would like to have this done before November if possible. She denies blood thinners, asthma, kidney issues She is a Diabetic, her most recent HgA1c was 7.0% on 03/22/23. They will need an updated HgA1c that is <8.1% in order to proceed with surgery, and they expressed understanding She has a Hx of CAD, and will need cardiac clearance prior to surgery. She sees a [facility] annually and is not taking any blood thinners. She has a Hx of chronic restrictive lung disease 4. Left carpal tunnel syndrome, mild 5. Left cubital tunnel syndrome Was not assessed today in clinic She will follow up to discuss at a later appointment Scribed for Melania Mendez MD by Jose Antonio Snider medical technologist generalist, on 08/30/23 at 10:25 AM, EST. Coding Level of Care Code Est Pt Level 4 (92604) Diagnoses Right carpal tunnel syndrome G56.01 Cubital tunnel syndrome on right G56.21 Trigger finger, right middle finger M65.331 History of carpal tunnel surgery of right wrist Z98.890 Carpal tunnel syndrome of left wrist G56.02 Cubital tunnel syndrome on left G56.22 Diabetes mellitus E11.9 CAD (coronary artery disease) I25.10 Chronic restrictive lung disease J98.4
[2023-08-30 09:52] VITALS: BMI 35.4
== END 2023-08-30 10:38 | disposition home or self-care (01) ==
PROVIDERS: PCP Student in an Organized Health Care Education/Training Program; Visit Provider Orthopaedic Surgery
DX: G56.03 Carpal tunnel syndrome, bilateral upper limbs (principal); G56.23 Lesion of ulnar nerve, bilateral upper limbs; M65.331 Trigger finger, right middle finger; E11.9 Type 2 diabetes mellitus without complications; I25.10 Atherosclerotic heart disease of native coronary artery without angina pectoris; J98.4 Other disorders of lung
CPT/HCPCS: 99214

== ENCOUNTER → 2023-08-30 09:27 | Outpatient (BNVA) | payer OTHER, SELFPAY | PROVIDERS: PCP Student in an Organized Health Care Education/Training Program; Visit Provider Orthopaedic Surgery | DX: G56.03 Carpal tunnel syndrome, bilateral upper limbs (principal); G56.23 Lesion of ulnar nerve, bilateral upper limbs; M65.331 Trigger finger, right middle finger; I25.10 Atherosclerotic heart disease of native coronary artery without angina pectoris; E11.9 Type 2 diabetes mellitus without complications; J98.4 Other disorders of lung; Z98.890 Other specified postprocedural states | CPT/HCPCS: 99212 ==

== ENCOUNTER 2023-09-01 23:57 | Inpatient (IN) | payer OTHER, SELFPAY ==
--- NOTE | ~2023-09-01 | MR_ITS ---
EXAMINATION: MR BRAIN WITHOUT CONTRAST CLINICAL INFORMATION: CVA COMPARISON: MRI brain on 02/12/2019 TECHNIQUE: MRI of the brain was obtained using routine sequences without contrast. FINDINGS: No acute intracranial hemorrhage or infarct. Scattered and confluent periventricular and deep white matter T2/FLAIR hyperintensities, nonspecific however commonly seen with small vessel ischemic disease. Diffuse prominence of the sulci with associated ex vacuo dilation of the ventricles compatible with global cerebral atrophy. No midline shift or hydrocephalus. No acute extra-axial fluid collections. The osseous structures are unremarkable. Partially empty sella. The pineal gland and remaining midline structures are unremarkable. Partially imaged T2 hyperintense lesion in the right parotid gland, likely representing previously seen cyst. Sequelae of bilateral lens replacement. Otherwise, no acute orbital pathology. Mild mucosal thickening of the paranasal sinuses. The mastoid air cells are clear. MR/MR head/brain wo con IMPRESSION: -No acute intracranial abnormalities. -Global cerebral volume loss and chronic microangiopathy.
--- NOTE | ~2023-09-01 | XR_ITS ---
EXAMINATION: XR CHEST CLINICAL INFORMATION: Left-sided weakness. COMPARISON: 09/30/2022. TECHNIQUE: Frontal view of the chest was obtained. FINDINGS: The cardiomediastinal silhouette is within normal limits and stable for level of inspiration. There is no focal lung consolidation or pleural effusion. The bony structures and soft tissues are unremarkable. XR/XR chest 1V IMPRESSION: No acute cardiopulmonary process.
--- NOTE | ~2023-09-01 | CT_ITS ---
EXAMINATION: CT ANGIOGRAM HEAD CT ANGIOGRAM NECK CLINICAL INFORMATION: Reason for Exam Left-sided weakness COMPARISON: Same-day head CT, CTA 02/12/2019, MRI brain 02/12/2019 TECHNIQUE: Test bolus sequences followed by intravenous administration 75 mL of Omnipaque 350. Helical imaging was performed in the axial plane from the aortic arch to the skull vertex. Delayed postcontrast imaging of the head was also performed. The data was processed at the manufacturing technologist's workstation for generation of MIP sequences. Angled MIPs and volume rendered reformatted images were also generated at an offline 3D workstation. Stenoses are assessed in accordance with Flores et al. Quantification of Carotid Stenosis on CT Angiography. AJR 2006. 27(1):13-19. [address] CT examination was performed using dose optimization techniques as appropriate, variously including the following: *Automated exposure control *Adjustment of mA and/or kV according to patient size (this includes techniques or standardized protocols for targeted exams where dose is matched to indication/reason for exam; i.e. extremities or head) *Use of iterative reconstruction technique DLP: 1368 mGy-cm FINDINGS: CT HEAD: Noncontrast head CT findings discussed separately. No pathologic intra-axial enhancement or regional oligemia. CTA HEAD: No hemodynamically significant stenosis or occlusion in the anterior or posterior circulation. Calcific plaque along the bilateral carotid siphons without luminal narrowing. Fenestrated proximal basilar artery, a normal anatomic variant. No aneurysms and no high flow vascular malformations. Timing of the contrast bolus allows assessment of the major dural venous sinuses, which all opacify normally CTA NECK: Classic 3 vessel branching pattern of the aortic arch. Origins of the great vessels are widely patent. The common carotid arteries are widely patent. Trace calcific plaque at the bilateral carotid bifurcations without associated stenosis. The internal carotid arteries are patent with segmentally retropharyngeal course of the left mid cervical ICA and tortuosity of the mid right cervical ICA. The right vertebral artery is dominant. The vertebral artery ostia are widely patent. Both vertebral arteries are widely patent throughout their extracranial cervical course. CT NECK: Slight interval increase in size of a nodule in the superficial right parotid lobe measuring 1.5 cm, previously 1.2 cm. Additional scattered nonpathologic size criteria cervical chain lymph nodes. Again seen several enhancing versus hyperdense thyroid nodules, injuring up to 8 mm, below size criteria for imaging follow-up. Redemonstrated congenital C2-C3 fusion. Progressive cervical spondylosis with new paracentral disc protrusion at C4-C5 contributing to increased moderate spinal canal stenosis with mass effect along the ventral cord. Query increased size of annular disc bulge at C3-C4 with increased moderate spinal canal stenosis with mass effect along the cord. Increased size of central disc protrusion at C5-C6. Uncovertebral and facet joint hypertrophy contribute to varying degrees of neural foraminal narrowing. CT/CT angio head neck stroke IMPRESSION: 1. No acute arterial occlusion or hemodynamically significant stenosis within the head or neck. 2. Slight interval increase in size of a nodule in the superficial right parotid lobe measuring 1.5 cm, previously 1.2 cm. This finding may reflect a primary parotid neoplasm, statistically likely to reflect a pleomorphic adenoma, versus intraparotid lymph node. 3. Progressed cervical spondylosis, notably with increased moderate C4-C5 canal stenosis with mass effect along the ventral cord and likely increased moderate C3-C4 spinal canal stenosis with mass effect along the cord. Varying degrees of neural foraminal narrowing as above. If there is referrable myelopathy/radiculopathy, further evaluation of these findings with dedicated cervical spine MRI may be performed as clinically warranted. This critical result was discussed with Dr. Peguero at 1:00 AM on 09/02/2023 and it was ascertained that the content and urgency of the report was understood at the time of direct communication.
--- NOTE | ~2023-09-01 | CT_ITS ---
EXAMINATION: CT HEAD WITHOUT CONTRAST CLINICAL INFORMATION: left sided weakness COMPARISON: MRI brain 02/12/[address] head 02/12/2019 TECHNIQUE: Contiguous axial imaging was performed from the skull base to vertex without intravenous contrast. Sagittal and coronal reformatted images were obtained. This CT examination was performed using dose optimization techniques as appropriate, variously including the following: * Automated exposure control * Adjustment of mA and/or kV according to patient size (this includes techniques or standardized protocols for targeted exams where dose is matched to indication/reason for exam; i.e. extremities or head) Use of iterative reconstruction technique DLP: 634 mGy-cm FINDINGS: New apparent well marginated hypodensity within the left aspect of the gail and likely also within the left upper cerebellum, suspicious for evolving acute ischemia which would be better evaluated on MRI. No significant mass effect or reperfusion hemorrhage. Stable mild volume loss and minimal chronic microangiopathic changes. No hyperdense vessel sign. No extra-axial fluid collection. No herniation pattern. Partially empty sella. Lens replacements. Trace mucosal thickening in the right maxillary sinus alveolar recess. No mastoid effusion. Osseous structures are intact. CT/CT head for stroke IMPRESSION: New apparent well marginated hypodensity within the left aspect of the gail and likely also within the left upper cerebellum, suspicious for evolving acute ischemia which would be more definitively assessed on MRI. No significant mass effect or reperfusion hemorrhage. Findings were communicated to Dr Peguero on 09/02/2023 at 12:18 AM.
[2023-09-02] VITALS (9 sets, daily range): BP systolic 125–187; BP diastolic 51–100; PULSE 58–78; RESP 12–18; TEMP 36.4–36.7; O2SAT 93–98; BMI 41.6
--- NOTE | 2023-09-02 00:04 | ECG_ITS ---
Test Reason : STROKE Blood Pressure : / mmHG Vent. Rate : 065 BPM Atrial Rate : 065 BPM P-R Int : 182 ms QRS Dur : 092 ms QT Int : 440 ms P-R-T Axes : 053 -32 -07 degrees QTc Int : 457 ms Normal sinus rhythm Left axis deviation Moderate voltage criteria for LVH, may be normal variant ( R in aVL , [employer] product ) Abnormal ECG When compared with ECG of 12-FEB-2019 11:29, Nonspecific T wave abnormality has replaced inverted T waves in Anterior leads Referred By: Sukhwinder Peguero Electronically Signed By:Tod Culp
--- NOTE | 2023-09-02 00:07 | ED_ITS ---
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 Peguero HPI narrative: 78-year-old female patient was brought in by EMS. At 22:40 patient felt dizzy, could not talk, felt heaviness on the left side of her body patient patient lives home by herself was able to use medic alert and call 911, on EMS arrival patient found to have slurred speech and left upper extremity weakness. On arrival to the ED patient stated that she feels held tongue heavier but able to speak clearly, patient also feels left upper extremity weakness and left lower extremity weakness. Patient stated she did not have any neurological symptoms until 22:40 tonight. Related Data Home Medications ?Medication ?Instructions ?Recorded ?Confirmed blood sugar diagnostic (FreeStyle #10 ea 02/12/20 11/20/21 Test strips) ferrous sulfate 325 mg (65 mg 325 mg PO DAILY 02/12/20 11/20/21 iron) tablet lancets 28 gauge (FreeStyle #100 ea 02/12/20 11/20/21 Lancets) metoprolol succinate 50 mg 50 mg PO DAILY 02/12/20 11/20/21 tablet,extended release 24 hr pregabalin 100 mg capsule (Lyrica) 100 mg PO BEDTIME 02/12/20 11/20/21 aspirin 81 mg tablet,delayed 81 mg PO DAILY 03/18/20 11/20/21 release calcium carbonate 600 mg-vitamin 1 tab PO BID 03/18/20 11/20/21 D3 10 mcg (400 unit) tablet cholecalciferol (vitamin D3) 50 50 mcg PO DAILY 03/18/20 11/20/21 mcg (2,000 unit) capsule metformin 500 mg tablet,extended 1,000 mg PO BID 03/18/20 11/20/21 release 24 hr simvastatin 40 mg tablet 40 mg PO BEDTIME 03/18/20 11/20/21 insulin glargine 100 unit/mL (3 30 unit subcut BID 05/19/20 11/20/21 mL) subcutaneous pen (Lantus Solostar U-100 Insulin) multivitamin with folic acid 400 1 tab PO DAILY 05/19/20 11/20/21 mcg tablet cyanocobalamin (vitamin B-12) 1,000 mcg PO DAILY 07/14/20 11/20/21 1,000 mcg tablet fluticasone propionate 110 2 puff inhalation BID 07/14/20 11/20/21 mcg/actuation HFA aerosol inhaler fluticasone propionate 50 1 spray intranasal DAILY 07/14/20 11/20/21 mcg/actuation nasal spray,suspension melatonin 5 mg tablet 5 mg PO BEDTIME 07/14/20 11/20/21 glipizide 2.5 mg tablet, extended 2.5 mg PO DAILY 06/23/21 11/20/21 release 24 hr olopatadine 0.1 % eye drops 0 drp ophthalmic (eye) 06/23/21 11/20/21 pen needle, diabetic 31 gauge x #1,200 ea 06/23/21 11/20/21/16 (Unifine Pentips) primidone 50 mg tablet 50 mg PO DAILY 06/23/21 11/20/21 diclofenac sodium 1 % topical gel 1 ea topical QID 11/03/21 11/20/21 latanoprost 0.005 % eye drops 0 drp ophthalmic (eye) 11/03/21 11/20/21 glucose 4 gram chewable tablet 0 g PO 08/20/22 lidocaine-prilocaine 2.5 %-2.5 % g topical DAILY 08/20/22 topical cream blood pressure test kit-large #1 ea 07/12/23 omeprazole 20 mg capsule,delayed 20 mg PO DAILY 07/12/23 release Previous Rx's ?Medication ?Instructions ?Recorded acetaminophen 500 mg tablet 1,000 mg (2 x 500 mg) PO QID PRN 06/05/20 (Tylenol Extra Strength) fever or pain #14 tabs ibuprofen 600 mg tablet 600 mg PO Q8H PRN pain #14 tabs 12/18/20 trazodone 50 mg tablet 100 mg (2 x 50 mg) PO BEDTIME 30 11/03/21 days #60 tabs Levoxyl 75 mcg tablet 75 mcg PO DAILY #90 tabs 12/08/21 (levothyroxine) losartan 50 mg-hydrochlorothiazide 1 tab PO DAILY #90 tabs 11/05/22 12.5 mg tablet methylcellulose (laxative) 500 mg 500 mg PO DAILY #30 tabs 07/12/23 tablet (Fiber Therapy (methylcellulose)) sennosides 8.6 mg tablet (Natural 17.2 mg (2 x 8.6 mg) PO BEDTIME 07/12/23 Senna Laxative) constipation #60 tabs Allergies Allergy/AdvReac Type Severity Reaction Status Date / Time lisinopril Allergy Intermediate itching Verified 09/02/23 00:12 Penicillins Allergy Intermediate rash/hives Verified 09/02/23 00:12 Review of Systems 2 Review of Systems: All other systems are reviewed and are negative Constitutional: Reports as per HPI and Reports no additional constitutional complaints Eyes: Reports as per HPI and Reports no additional eye complaints Reports system reviewed and no additional complaints, except as documented Cardiovascular: Reports as per HPI and Reports no additional cardiovascular complaints Respiratory: Reports as per HPI and Reports no additional respiratory complaints Gastrointestinal: Reports as per HPI and Reports no additional gastrointestinal complaints Genitourinary: Reports no additional female genitourinary complaints Musculoskeletal: Reports no additional musculoskeletal complaints Skin/Breast: Reports system reviewed and no additional complaints, except as docu Psychiatric: Reports no additional psychiatric complaints Endocrine: Reports no additional endocrine complaints Hematologic/Lymphatic: Reports no additional hematologic/lymphatic complaints Allergic/Immunologic: Reports no additional allergic/immunologic complaints Reports system reviewed and no additional complaints, except as documented and Reports Abnormal speech present PENDING SALE TO [facility] Past Medical History Medical History Dysphagia Chronic restrictive lung disease Insomnia On beta anish at home History of COVID-19 Asthma Chronic constipation Broken arm CAD (coronary artery disease) HTN (hypertension) Hyperlipidemia Diabetes mellitus Dyspnea Non-toxic multinodular goiter Hypothyroidism Surgical History History of surgery Hx of elbow surgery History of surgery on arm Hx of cholecystectomy History of partial hysterectomy Hx of cataract surgery History of tubal ligation Hx of tonsillectomy History of carpal tunnel release Hx of colonoscopy Family History Family History Father Throat cancer Heart disease CVD (cardiovascular disease) Mother Stomach cancer Type 2 diabetes mellitus Arthritis of knee Hypertension Social History Social History Household Members: None Alcohol intake: never Patient Tobacco Use Status: Never used Tobacco Second Hand Smoke Exposure: No Advance Directives: No Advance Directives Information Provided: Yes Do you have a plan to hurt others: No Plan Current occupational status: retired Current occupation: right handed Physical Exam ED Vital Signs: BMI result Body Mass Index 41.6 Vital signs have been reviewed and appear to be correct. Blood pressure elevated. Heart rate normal. Respiratory rate normal. Temperature normal. Oxygen saturation normal. Appearance: Alert. Oriented X3. No acute distress. Head: Normal external exam. Normocephalic. Atraumatic. No Maguire signs noted. No raccoon eyes noted Eyes: PERRLA. EOMI. Conjunctiva and sclera normal. Eyelids normal. ENT: TM's Normal. Pharynx normal. Uvula midline. Moist mucous membranes. No trismus noted. No drooling noted. No muffled voice noted. Neck: Normal inspection. Neck supple. FROM. No adenopathy. Thyroid Normal. No meningeal signs. No neck mass noted. CVS: Normal heart rate and rhythm. Heart sound normal. No murmurs noted. Pulses normal throughout. Respiratory: No respiratory distress. Painless inspiration. Breath sounds normal. No wheezes/rales/rhonchi noted. Chest nontender. No accessory muscle usage noted or decreased air movement noted. Abdomen: Soft and nontender. Bowel sounds normal in all 4 quadrants. No distention noted. No organomegaly noted. No visible injury noted. Back: No CVA tenderness. Full range of motion noted. Skin: Skin warm and dry. Normal skin color. Normal skin turgor. No rashes/lesions/lacerations noted. Extremities: No lower extremity edema. Extremities exhibit normal range of motion. Extremities nontender. Neuro: Oriented X 3. Refer to NIH NIH Stroke Scale Internal: Initial- Upon Arrival Time: 00:11 Level of Consciousness: Alert Level of Consciousness Questions: Answers both questions correctly Level of Consciousness Commands: Performs both tasks correctly Best Gaze: Normal Visual: No visual loss Facial Palsy: Normal Motor Arm (Right): No drift Motor Arm (Left): Some effort against gravity Motor Leg (Right): No drift Motor Leg (Left): Some effort against gravity Limb Ataxia: Absent Sensory: Mild to moderate sensory loss Best Language: Mild to moderate aphasia Dysarthia: Normal Extinction and Inattention: No abnormality Score: 6 Course Course Course Narrative: 00:16: Received a call from radiologist for well-marginated hypodensity in the left gail and left upper cerebellum. 00:50; CT findings was discussed with Dr. Funez tense questionable hypodense areas in the gail and left cerebellum no TNK indicated will administer aspirin. 1:00 CT angiogram of head and neck reported by the radiologist as no LVO. Reevaluation(s) Reevaluation #1: Patient is not a candidate for thrombolysis therapy or mechanical thrombectomy because CT head reveals well-marginated hypodensity within the left aspect of the gail and left upper cerebellum which is a suspicious for evolving acute ischemia. As per administration, hospitalization, MRI, further neurology evaluation. Time: 01:43 Medications Administered Discontinued Medications Generic Name Dose Route Start Last Admin Trade Name Freq PRN Reason Stop Dose Admin Aspirin 81 mg 09/02/23 00:55 09/02/23 01:27 Aspirin Enteric Coated 81 Mg Tablet. PO 09/02/23 00:56 81 mg ONCE ONE Administration Iohexol 75 ml 09/02/23 00:25 09/02/23 00:26 Iohexol 350 Mg/Ml 100 Ml Infus..Btl IV 09/02/23 00:26 75 ml ONCE ONE Administration Medical Decision Making Differential Diagnosis Differential Diagnoses: The differential diagnosis associated with the presentation includes (Hemorrhagic stroke, ischemic stroke, large vessel occlusion, cerebral aneurysm, electrolyte derangement, severe anemia.) Admission/Observation Consideration of admission/observation: Escalation of care including admission/observation considered Consult Healthcare Provider Management of the patient was discussed with: Hospitalist (Dr. Burch) and [employer] Operators Supervisor (Dr. Funez) Lab Data MDM Lab Attestation statement: I reviewed the patient's lab results. 09/02/23 00:51 09/02/23 00:51 Labs: Lab Results 09/02/23 09/02/23 Range/Units 00:01 00:51 WBC 6.8 (4.8-10.8) X10*3/uL RBC 4.15 L (4.20-5.50) X10*6/uL Hgb 11.4 L (12.0-16.0) g/dl Hct 34.7 L (37.0-47.0) % MCV 83.6 (80.0-98.0) fL MCH 27.5 (27.0-33.0) pg MCHC 32.9 (31.0-35.0) g/dl RDW 17.0 H (11.0-16.0) % Plt Count 248 (160-400) X10*3/uL MPV 9.5 (9.4-12.3) fL Immature Gran % (Auto) 0.3 (0.0-0.4) % Neut % (Auto) 20.1 L (45-73) % Lymph % (Auto) 63.6 H (20-40) % Morton % (Auto) 10.5 (2-11) % Eos % (Auto) 4.6 H (0-4) % Baso % (Auto) 0.9 (0-2) % Lymph # (Auto) 4.3 (1.2-4.9) X10*3/uL Morton # (Auto) 0.7 (0.1-1.2) X10*3/uL Eos # (Auto) 0.3 (0.0-0.4) X10*3/uL Baso # (Auto) 0.1 (0.0-0.2) X10*3/uL Abs Immat Gran (auto) 0.02 (0.00-0.03) X10*3/uL Absolute Neuts (auto) 1.4 L (2.0-8.3) x10*3/uL Absolute Nucleated RBC 0.000 (0.0-0.012) X10*3/uL Nucleated RBC % (auto) 0.0 (0.0-0.2) /100WBC Smear Tech's Comments VERIFIED PT 12.6 (11.1-13.3) SEC INR 1.0 (0.9-1.1) APTT 31.2 (26.0-36.8) SEC Sodium 142 (135-145) mmol/L Potassium 4.2 (3.3-5.1) mmol/L Chloride 108 (96-108) mmol/L Carbon Dioxide 27 (22-29) mmol/L Anion Gap 11 L (12-20) BUN 8 L (9-16) mg/dL Creatinine 0.70 (0.5-1.4) mg/dL Estim Creat Clear Calc 84.5 Estimated GFR > 60 POC Glucose 183 H (60-115) mg/dL Random Glucose 177 H (60-115) mg/dL Calcium 9.8 (8.4-10.2) mg/dL Total Creatine Kinase 102 (26-140) U/L Troponin I High Sens 11.3 (<3.5-17.0) ng/L Independent Interpretation I performed an independent interpretation of an: Plain X-Ray (Chest: No acute cardiopulmonary process.) and CT Scan (Head/CTA angio:1. No acute arterial occlusion or hemodynamically significant stenosis within the head or neck. 2. Slight interval increase in size of a nodule in the superficial right parotid lobe measuring 1.5 cm, previously 1.2 cm. This finding may reflect a primary parotid neoplasm, statistical) Radiology Impression Discussion of test interpretation with radiology: I have reviewed the radiologist's reading. Discharge Plan Discharge Clinical Impression: Acute CVA (cerebrovascular accident) Patient Disposition: Admitted As Inpatient Prescriptions: No Action levothyroxine [Levoxyl] 75 mcg tablet 75 mcg PO DAILY Qty: 90 3RF losartan-hydrochlorothiazide 50-12.5 mg tablet 1 tab PO DAILY Qty: 90 0RF Rx Instructions: Obtain refills from PCP acetaminophen [Tylenol Extra Strength] 500 mg tablet 1,000 mg PO QID PRN (Reason: fever or pain) Qty: 14 0RF ibuprofen 600 mg tablet 600 mg PO Q8H PRN (Reason: pain) Qty: 14 0RF pregabalin [Lyrica] 100 mg capsule 100 mg PO BEDTIME ferrous sulfate 325 mg (65 mg iron) tablet 325 mg PO DAILY metoprolol succinate 50 mg tablet extended release 24 hr 50 mg PO DAILY (DME) lancets [FreeStyle Lancets] 28 gauge misc See Rx Instructions .ROUTE .MEDSUPPLY Qty: 100 Rx Instructions: As directed (DME) FreeStyle Test Strip See Rx Instructions .ROUTE .MEDSUPPLY Qty: 10 Rx Instructions: As directed Lantus Solostar U-100 Insulin 100 unit/mL (3 mL) insulin pen 30 unit subcut BID aspirin 81 mg tablet,delayed release (DR/EC) 81 mg PO DAILY simvastatin 40 mg tablet 40 mg PO BEDTIME metformin 500 mg tablet extended release 24 hr 1,000 mg PO BID calcium carbonate-vitamin D3 600 mg(1,500mg) -400 unit tablet 1 tab PO BID cholecalciferol (vitamin D3) 50 mcg (2,000 unit) capsule 50 mcg PO DAILY multivitamin with folic acid 400 mcg tablet 1 tab PO DAILY cyanocobalamin (vitamin B-12) 1,000 mcg tablet 1,000 mcg PO DAILY fluticasone propionate 50 mcg/actuation spray,suspension 1 spray intranasal DAILY fluticasone propionate 110 mcg/actuation HFA aerosol inhaler 2 puff inhalation BID melatonin 5 mg tablet 5 mg PO BEDTIME glipizide 2.5 mg tablet extended release 24hr 2.5 mg PO DAILY primidone 50 mg tablet 50 mg PO DAILY olopatadine 0.1 % drops 0 drp ophthalmic (eye) (DME) pen needle, diabetic [Unifine Pentips] 31 gauge x 5/16 needle See Rx Instructions .ROUTE .MEDSUPPLY Qty: 1200 Rx Instructions: As directed latanoprost 0.005 % drops 0 drp ophthalmic (eye) diclofenac sodium 1 % gel 1 ea topical QID trazodone 50 mg tablet 100 mg PO BEDTIME 30 Days Qty: 60 9RF Rx Instructions: Take 1 hour before sleep lidocaine-prilocaine 2.5-2.5 % cream topical DAILY glucose 4 gram tablet,chewable 0 g PO (DME) blood pressure test kit-large Kit See Rx Instructions .ROUTE BID Qty: 1 Rx Instructions: As directed omeprazole 20 mg capsule,delayed release(DR/EC) 20 mg PO DAILY sennosides [Natural Senna Laxative] 8.6 mg tablet 17.2 mg PO BEDTIME Qty: 60 1RF Fiber Therapy (m-cellulose) 500 mg tablet 500 mg PO DAILY Qty: 30 3RF Print Language: Citizen Of [place]
[2023-09-02 00:08] LABS: Glucose, Whole Blood 183 mg/dL (60-115)
--- NOTE | 2023-09-02 00:09 | MHC.EDTECH ---
INR AND POC DONE ON ARRIVAL, POC 183, INR 1.0, PT 12.6, DR OZUNA AND RN NOTIFIED.
[2023-09-02] MEDS: iohexoL 350 MG/ML 100 ML INFUS..BTL 75 ML IV (00:26)
[2023-09-02 01:04] LABS: Basophils Absolute Auto 0.1 X10*3/uL (0.0-0.2); Basophils Percent Auto 0.9 % (0-2); Eosinophils Absolute Auto 0.3 X10*3/uL (0.0-0.4); Eosinophils Percent Auto 4.6 % (0-4); Hematocrit 34.7 % (37.0-47.0); Hemoglobin 11.4 g/dl (12.0-16.0); Imm Gran Abs Auto 0.02 X10*3/uL (0.00-0.03); Imm Gran Pct Auto 0.3 % (0.0-0.4); Lymphocytes Absolute Auto 4.3 X10*3/uL (1.2-4.9); Lymphocytes Percent Auto 63.6 % (20-40); MANUAL DIFF FLAG SCAN; Mean Corpuscular HGB Conc 32.9 g/dl (31.0-35.0); Mean Corpuscular Hemoglobin 27.5 pg (27.0-33.0); Mean Corpuscular Volume 83.6 fL (80.0-98.0); Mean Platelet Volume 9.5 fL (9.4-12.3); Monocytes Absolute Auto 0.7 X10*3/uL (0.1-1.2); Monocytes Percent Auto 10.5 % (2-11); Neutrophils Absolute Auto 1.4 x10*3/uL (2.0-8.3); Neutrophils Percent Auto 20.1 % (45-73); Platelet Count 248 X10*3/uL (160-400); Red Blood Count 4.15 X10*6/uL (4.20-5.50); SCAN SMEAR FLAG 1; White Blood Count 6.8 X10*3/uL (4.8-10.8)
[2023-09-02 01:13] LABS: Anion Gap 11 (12-20); Blood Urea Nitrogen 8 mg/dL (9-16); Calcium 9.8 mg/dL (8.4-10.2); Carbon Dioxide 27 mmol/L (22-29); Chloride 108 mmol/L (96-108); Creatinine Clr Calc Pharmacy 84.5; Estimated Glomerular Filt Rate > 60; Glucose Random 177 mg/dL (60-115); Potassium 4.2 mmol/L (3.3-5.1); Sodium 142 mmol/L (135-145)
[2023-09-02 01:19] LABS: Troponin-I High Sensitivity 11.3 ng/L (<3.5-17.0)
[2023-09-02 01:24] LABS: Prothrombin Time 12.6 SEC (11.1-13.3)
[2023-09-02 01:27] LABS: Partial Thromboplastin Time 31.2 SEC (26.0-36.8); SLIDE REVIEW VERIFIED; Stroke Lab Use COMPLETE
[2023-09-02] MEDS: Aspirin Enteric Coated 81 MG TABLET.DR PO ×2 (01:27→08:28)
--- NOTE | 2023-09-02 02:21 | PM.IMHP ---
History of Present Illness Date of Service: 09/02/23 Chief Complaint: Slurred speech This is a 78-year-old female with pertinent history of insulin-dependent diabetes mellitus, hypertension, mixed hyperlipidemia, mood disorder, asthma not on home oxygen, hypothyroidism who presents to the emergency department for evaluation of slurred speech. Patient states that she was going to bed she had difficulty with speech. Also noticed heaviness of her left arm and difficulty moving her left leg. Patient's speech is now better in the ER. No rhythmic jerking movement of extremities. No fever, chills, chest discomfort, palpitations, abdominal pain, shortness for breath, changes in urinary or bowel habits. History was also obtained with the help of daughter and granddaughter at bedside. In the emergency department, CT head with new heparin hypodensity within gail and left cerebellum suspicious for acute ischemia. Case was discussed with neurologist and patient was deemed not to be a candidate for TNK. Review of Systems Constitutional: Constitutional: Reports no additional constitutional complaints Cardiovascular: Cardiovascular: Reports no additional cardiovascular complaints Respiratory: Respiratory: Reports no additional respiratory complaints Gastrointestinal: Gastrointestinal: Reports no additional gastrointestinal complaints Genitourinary: Genitourinary: Reports no additional female genitourinary complaints Neurologic: Reports Abnormal speech present and Reports focal weakness [facility] Medical History Dysphagia Chronic restrictive lung disease Insomnia On beta anish at home History of COVID-19 Asthma Chronic constipation Broken arm CAD (coronary artery disease) HTN (hypertension) Hyperlipidemia Diabetes mellitus Dyspnea Non-toxic multinodular goiter Hypothyroidism Family History Father Throat cancer Heart disease CVD (cardiovascular disease) Mother Stomach cancer Type 2 diabetes mellitus Arthritis of knee Hypertension Surgical History History of surgery Hx of elbow surgery History of surgery on arm Hx of cholecystectomy History of partial hysterectomy Hx of cataract surgery History of tubal ligation Hx of tonsillectomy History of carpal tunnel release Hx of colonoscopy Social History Household Members: None Alcohol intake: never Patient Tobacco Use Status: Never used Tobacco Second Hand Smoke Exposure: No Advance Directives: No Advance Directives Information Provided: Yes Do you have a plan to hurt others: No Plan Current occupational status: retired Current occupation: right handed Meds Allergies Allergy/AdvReac Type Severity Reaction Status Date / Time lisinopril Allergy Intermediate itching Verified 09/02/23 00:12 Penicillins Allergy Intermediate rash/hives Verified 09/02/23 00:12 Home Medications ?Medication ?Instructions ?Recorded ?Confirmed ?Last Taken ?Type blood sugar diagnostic (FreeStyle #10 ea 02/12/20 11/20/21 Unknown History Test strips) ferrous sulfate 325 mg (65 mg 325 mg PO DAILY 02/12/20 11/20/21 Unknown History iron) tablet lancets 28 gauge (FreeStyle #100 ea 02/12/20 11/20/21 Unknown History Lancets) metoprolol succinate 50 mg 50 mg PO DAILY 02/12/20 11/20/21 Unknown History tablet,extended release 24 hr pregabalin 100 mg capsule (Lyrica) 100 mg PO BEDTIME 02/12/20 11/20/21 Unknown History aspirin 81 mg tablet,delayed 81 mg PO DAILY 03/18/20 11/20/21 Unknown History release calcium carbonate 600 mg-vitamin 1 tab PO BID 03/18/20 11/20/21 Unknown History D3 10 mcg (400 unit) tablet cholecalciferol (vitamin D3) 50 50 mcg PO DAILY 03/18/20 11/20/21 Unknown History mcg (2,000 unit) capsule metformin 500 mg tablet,extended 1,000 mg PO BID 03/18/20 11/20/21 Unknown History release 24 hr simvastatin 40 mg tablet 40 mg PO BEDTIME 03/18/20 11/20/21 Unknown History insulin glargine 100 unit/mL (3 30 unit subcut BID 05/19/20 11/20/21 Unknown History mL) subcutaneous pen (Lantus Solostar U-100 Insulin) multivitamin with folic acid 400 1 tab PO DAILY 05/19/20 11/20/21 Unknown History mcg tablet cyanocobalamin (vitamin B-12) 1,000 mcg PO DAILY 07/14/20 11/20/21 Unknown History 1,000 mcg tablet fluticasone propionate 110 2 puff inhalation BID 07/14/20 11/20/21 Unknown History mcg/actuation HFA aerosol inhaler fluticasone propionate 50 1 spray intranasal DAILY 07/14/20 11/20/21 Unknown History mcg/actuation nasal spray,suspension melatonin 5 mg tablet 5 mg PO BEDTIME 07/14/20 11/20/21 Unknown History glipizide 2.5 mg tablet, extended 2.5 mg PO DAILY 06/23/21 11/20/21 Unknown History release 24 hr olopatadine 0.1 % eye drops 0 drp ophthalmic (eye) 06/23/21 11/20/21 Unknown History pen needle, diabetic 31 gauge x #1,200 ea 06/23/21 11/20/21 Unknown History 5/16 (Unifine Pentips) primidone 50 mg tablet 50 mg PO DAILY 06/23/21 11/20/21 Unknown History diclofenac sodium 1 % topical gel 1 ea topical QID 11/03/21 11/20/21 Unknown History latanoprost 0.005 % eye drops 0 drp ophthalmic (eye) 11/03/21 11/20/21 Unknown History glucose 4 gram chewable tablet 0 g PO 08/20/22 Unknown History lidocaine-prilocaine 2.5 %-2.5 % g topical DAILY 08/20/22 Unknown History topical cream blood pressure test kit-large #1 ea 07/12/23 Unknown History omeprazole 20 mg capsule,delayed 20 mg PO DAILY 07/12/23 Unknown History release Physical Exam Vital Signs and Narrative: Vital Signs: Last Vital Signs Pulse 63 09/02/23 01:47 Resp 16 09/02/23 01:47 BP 143/61 H 09/02/23 01:47 Pulse Ox 94 09/02/23 01:47 O2 Del Method Room Air 09/02/23 01:47 BMI result Body Mass Index 41.6 Elderly female lying in bed in no distress Neck supple, no JVD Regular rate and rhythm, S1-S2 heard Regular breath sounds bilaterally, no wheezing or crackles appreciated Abdomen soft nontender, no guarding, no rigidity Patient is awake, alert and oriented to self, place, time and person ; strength equal in bilateral upper and lower extremity, no facial droop, tongue and uvula midline, no nystagmus, Psych: Normal mood No pedal edema Neuro: Speech: Abnormal speech present Results Labs 09/02/23 00:51 09/02/23 00:51 Labs: Laboratory Results - last 24 hr 09/02/23 09/02/23 00:01 00:51 MCV 83.6 MCH 27.5 MCHC 32.9 RDW 17.0 H Plt Count 248 MPV 9.5 Immature Gran % (Auto) 0.3 Neut % (Auto) 20.1 L Lymph % (Auto) 63.6 H Whitman % (Auto) 10.5 Eos % (Auto) 4.6 H Baso % (Auto) 0.9 Lymph # (Auto) 4.3 Whitman # (Auto) 0.7 Eos # (Auto) 0.3 Baso # (Auto) 0.1 Abs Immat Gran (auto) 0.02 Absolute Neuts (auto) 1.4 L Absolute Nucleated RBC 0.000 Nucleated RBC % (auto) 0.0 Smear Tech's Comments VERIFIED PT 12.6 INR 1.0 APTT 31.2 Anion Gap 11 L Estim Creat Clear Calc 84.5 Estimated GFR > 60 POC Glucose 183 H Random Glucose 177 H Calcium 9.8 Total Creatine Kinase 102 Troponin I High Sens 11.3 Imaging Radiologist's Impressions: Impressions Head CT 09/02/23 00:14 IMPRESSION: New apparent well marginated hypodensity within the left aspect of the gail and likely also within the left upper cerebellum, suspicious for evolving acute ischemia which would be more definitively assessed on MRI. No significant mass effect or reperfusion hemorrhage. Findings were communicated to Dr Peguero on 09/02/2023 at 12:18 AM. Chest X-Ray 09/02/23 00:35 IMPRESSION: No acute cardiopulmonary process. Head/Neck CTA 09/02/23 00:39 IMPRESSION: 1. No acute arterial occlusion or hemodynamically significant stenosis within the head or neck. 2. Slight interval increase in size of a nodule in the superficial right parotid lobe measuring 1.5 cm, previously 1.2 cm. This finding may reflect a primary parotid neoplasm, statistically likely to reflect a pleomorphic adenoma, versus intraparotid lymph node. 3. Progressed cervical spondylosis, notably with increased moderate C4-C5 canal stenosis with mass effect along the ventral cord and likely increased moderate C3-C4 spinal canal stenosis with mass effect along the cord. Varying degrees of neural foraminal narrowing as above. If there is referrable myelopathy/radiculopathy, further evaluation of these findings with dedicated cervical spine MRI may be performed as clinically warranted. This critical result was discussed with Dr. Peguero at 1:00 AM on 09/02/2023 and it was ascertained that the content and urgency of the report was understood at the time of direct communication. Assessment and Plan (1) Slurred speech: Status: Acute Plan This is a 78-year-old female with pertinent history of insulin-dependent diabetes mellitus, hypertension, mixed hyperlipidemia, mood disorder, asthma not on home oxygen, hypothyroidism who presents to the emergency department for evaluation of slurred speech. #. Slurred speech, transient: Concerning for acute CVA. CT head with new hypodensity within the left gail and left cerebellum concerning for acute ischemia. Will admit patient with cardiac monitoring and obtain MRI. Also obtaining lipid panel, A1c and echocardiogram. Consulted Neurology. NPO until patient passes bedside swallow. PT/OT consult pending. Initiating aspirin and high-intensity statin #. Insulin-dependent diabetes mellitus: Initiating basal plus insulin regimen #. Hypertension: Hold antihypertensives to allow for permissive hypertension in patient with high suspicion of acute CVA #. Hypothyroidism: On levothyroxine #. Gastroesophageal reflux disease: On PPI #. Mood disorder: Continue home mood stabilizers Med rec pending DVT prophylaxis: Lovenox Full code. Discussed with family and patient at bedside Admit as inpatient and will require two night minimum hospital stay for evaluation and treatment of slurred speech (as above), which is not possible in a lesser acute setting. Specialist consult pending Quality Stroke Does the patient have a stroke diagnosis?: No VTE Prior VTE?: No VTE Risk Level:: Medical - moderate - high VTE Device Contraindication: Treatment Not Indicated VTE Drug Contraindication: N/A - Med Ordered
[2023-09-02 03:33] LABS: Glucose, Whole Blood 108 mg/dL (60-115)
[2023-09-02] MEDS: Enoxaparin Sodium 40 MG/0.4 ML SYRINGE SUBCUT (04:28)
[2023-09-02] MEDS: Insulin Glargine,Hum.rec.anlog 100 UNIT/ML 10 ML VIAL 15 UNIT SUBCUT (04:28)
[2023-09-02 06:18] LABS: Basophils Absolute Auto 0.1 X10*3/uL (0.0-0.2); Basophils Percent Auto 0.8 % (0-2); Eosinophils Absolute Auto 0.4 X10*3/uL (0.0-0.4); Eosinophils Percent Auto 4.9 % (0-4); Estimated Average Glucose 177 mg/dL; Hematocrit 34.9 % (37.0-47.0); Hemoglobin 11.5 g/dl (12.0-16.0); Hemoglobin A1c % 7.8 % (<6.0); Lymphocytes Percent Auto 66.2 % (20-40); MANUAL DIFF FLAG SCAN; Mean Corpuscular Hemoglobin 27.3 pg (27.0-33.0); Mean Corpuscular Volume 82.7 fL (80.0-98.0); Mean Platelet Volume 9.7 fL (9.4-12.3); Monocytes Absolute Auto 0.9 X10*3/uL (0.1-1.2); Monocytes Percent Auto 11.3 % (2-11); Neutrophils Absolute Auto 1.3 x10*3/uL (2.0-8.3); Neutrophils Percent Auto 16.8 % (45-73); Platelet Count 251 X10*3/uL (160-400); Red Blood Count 4.22 X10*6/uL (4.20-5.50); SCAN SMEAR FLAG 1; White Blood Count 7.5 X10*3/uL (4.8-10.8)
[2023-09-02 06:25] LABS: Anion Gap 11 (12-20); Blood Urea Nitrogen 7 mg/dL (9-16); Calcium 9.7 mg/dL (8.4-10.2); Carbon Dioxide 27 mmol/L (22-29); Chloride 110 mmol/L (96-108); Creatinine Clr Calc Pharmacy 98.6; Estimated Glomerular Filt Rate > 60; Glucose Random 90 mg/dL (60-115); Potassium 3.8 mmol/L (3.3-5.1); Sodium 144 mmol/L (135-145)
--- NOTE | 2023-09-02 07:00 | CA_ITS ---
Transthoracic Echocardiogram Patient (Last, First, Middle): Arlette Dias, Gender: Female Date of : 1945 Age: 78 Procedure Date: 09/02/2023 Procedure Type: Transthoracic Echocardiogram Location: ER Height: 165.1 cm Weight: 113.4 kg BSA: 2.17 m2 Heart Rate: 60 bpm BP: 125 / 62 mmHg Stock Grader: Referring MD: Trace Burch MD Symptoms: CVA Study Quality: Adequate w contrast ECG Rhythm: Sinus Conclusions: - Mildly increased left ventricular cavity size. There is normal left ventricular wall thickness. The left ventricular systolic function is low normal. The visually estimated ejection fraction is between 50-55%. - E/E prime ratio is between 8 and 15 consistent with indeterminate filling pressures. - Normal right ventricular cavity size and systolic function. Findings Procedure Information Contrast agent, definity, is being given per protocol without apparent complications. Left Ventricle Mildly increased left ventricular cavity size. There is normal left ventricular wall thickness. The left ventricular systolic function is low normal. The visually estimated ejection fraction is between 50-55%. Abnormal diastolic function is noted. Spectral Doppler is indicative of an impaired relaxation filling pattern. E/E prime ratio is between 8 and 15 consistent with indeterminate filling pressures. Right Ventricle Normal right ventricular cavity size and systolic function. Atria The left atrium is likely dilated. Aortic Valve Normal aortic valve structure and function. There is no aortic valve stenosis. There is no aortic valve regurgitation. Mitral Valve The mitral valve appears normal. There is trace mitral valve regurgitation. There is no mitral valve stenosis. Pulmonic Valve The pulmonic valve is normal. There is trace pulmonic valve regurgitation. Tricuspid Valve Normal tricuspid valve structure. There is no tricuspid valve regurgitation. Normal right atrial pressure. There is no evidence of pulmonary hypertension. Great Vessels All visible segments of the aorta are normal in size. The visualized portions of the pulmonary artery and branches are normal. Venous The inferior vena cava is normal in size and collapses greater than 50% with inspiration. Pericardium/Pleural There is no evidence of pericardial effusion. Prior Study Comparison No prior study available for comparison. Measurements 2D Linear Measurements IVSd: 1.02 0.6-0.9/0.6-1.0 cm LVIDd: 5.58 3.9-5.3/4.2-5.9 cm LVIDd Index: 2.57 2.4-3.2/2.2-3.1 cm/m2 LVIDs: 4.12 2.0-3.6 cm LVPWd: 1.10 0.7-1.1 cm LA Diam: 3.20 2.7-3.8/3.0-4.0 cm LAIDs Index: 1.47 1.5-2.3 cm/m2 LV Mass: 294.10 67-162/88-224 g LV Mass Index: 135.53 43-95/49-115 g/m2 LVOT Diam: 2.10 3.0+(-)1.3 cm 2D Systolic Function EF 4C: 54.60 >55% EF 2C: 43.20 >55% EF BiP: 51.50 >55% Mitral Valve MV Pk E: 0.52 MV PK A: 1.02 MV Decel Time: 264.00 E/A: 0.50 E'Lateral: 4.68 E'Medial: 4.24 E/E' Med: 12.20 E/E' Lat: 11.10 PHT: 77.00 MVA PHT: 2.86 Decel [place]: 1.96 Aortic Valve AoV Pk Satinder: 1.21 AoV Pk Grad: 6.00 JENNY: 2.37 LVOT LVOT Pk Satinder: 0.83 LVOT Mn Satinder: 0.54 LVOT VTI: 0.23 LVOT Pk Grad: 3.00 LVOT Mn Grad: 1.00 LVOT Diam: 2.10 LVOT Area: 3.46 Diastolic Function MV Pk E: 0.52 MV Pk A: 1.02 E/A: 0.50 E'Medial: 4.24 E/E' Med: 12.20 E' Laterial: 4.68 E/E' Lat: 11.10 Right Ventricle TAPSE (mm): 39.20 TVS' Satinder: 13.70 Tricuspid Valve TR Pk Satinder: 1.56 TR Pk Grad: 10.00 RA Press: 3.00 RVSP: 13.00 Great Vessels Aorta Sinus of Valsalva: 3.10 2.0-3.5 cm Ao Asc: 3.30 2.1-3.4 cm Pulmonary Valve PV Pk Satinder: 0.92 Peak PV Grad: 3.00 Updated in Other Vendor System with Status of Final Tod Culp MD electronically signed on 09/02/2023 7:15:26 PM with status of Final
--- NOTE | 2023-09-02 07:08 | PC.NURSE ---
Alert and responsive, vss, denies pain or discomfort
[2023-09-02 07:13] LABS: Glucose, Whole Blood 92 mg/dL (60-115)
--- NOTE | 2023-09-02 07:59 | PC.NURSE ---
MRI screening form completed with patient via oil changer, patient stating she needs hand surgery so unable to sign form but able to make an x on consent form
[2023-09-02 08:08] LABS: Prothrombin Time Whole Bld POC 12.6 sec (11.1-13.5)
[2023-09-02] MEDS: Atorvastatin Calcium 40 MG TABLET PO (08:28)
--- NOTE | 2023-09-02 08:35 | PC.NURSE ---
Patient declined am lantus stating she only takes it at night, pharmacy called stating it was ordered by MD but med rec will be done
--- NOTE | 2023-09-02 09:01 | PC.NURSE ---
Patient at MRI
--- NOTE | 2023-09-02 10:52 | PHA.MEDREC ---
Pharmacy Consult ? Medication Reconciliation Pharmacy has completed the medication reconciliation.Completed med rec list, confirmed it with list sent from [facility]. Patient is on lantus. I was able to go talk and find out she does 25 units every night and the last dose was 09/01/23 @10:30pm
[2023-09-02 11:36] LABS: Glucose, Whole Blood 107 mg/dL (60-115)
--- NOTE | 2023-09-02 12:33 | PC.NURSE ---
patient requesting to take meds after lunch
[2023-09-02] MEDS: Primidone 50 MG TABLET PO ×2 (13:15→22:03)
[2023-09-02] MEDS: Pregabalin 100 MG CAPSULE PO ×2 (13:16→22:02)
[2023-09-02] MEDS: Cyanocobalamin (Vitamin B-12) 1,000 MCG TABLET 1000 MCG PO (13:16)
[2023-09-02] MEDS: Levothyroxine Sodium 75 MCG TABLET PO (13:16)
[2023-09-02] MEDS: Omeprazole 20 MG CAPSULE.DR PO (13:16)
[2023-09-02] MEDS: Multivitamin TABLET 1 TAB PO (13:16)
[2023-09-02] MEDS: Cholecalciferol (Vitamin D3) 25 MCG TABLET 50 MCG PO (13:16)
--- NOTE | 2023-09-02 13:34 | MHC.CM.PN ---
IMM 09/02/23, CM met with pt and family along with science center display builder. Pt lives alone, she has [employer] services 18.5 hours per week. For DME she has a walker and a cane. HCP form to be completed here. PCP confirmed: Dr. Murali Kessler. Transportation at DC is TBD. CM will follow and assist with DC planning.
--- NOTE | 2023-09-02 13:41 | MHC.SL.SWA ---
Speech Pathologist Impression: Risk of aspiration, oral phase dysphagia Risk of Aspiration Due to: Neurological Condition Dysphasia Diet Status: Downgrade to NDD2 Liquid Consistency and Strategies for Safe Swallow: Liquid Intake Recommendation: Thin Liquid Intake Strategies: Small Sips Solid Food Consistency: Dietary Recommendations: Grnd/Mech Altered (NDD2) Additional Modifications to Solid Foods: Patient seen by [facility] in the ED for bedside swallow exam. Patient is edentulous, refused harder solids due to difficulty chewing. Patient does report sometimes feeling globus sensation and needing to take sips of liquid to clear. She tolerated softer solids, demonstrating mildly slow oral phase but good clearance and no s/s aspiration. No difficulties with liquids. Recommend start on GROUND/MECH ALTERED diet (NDD2) for ease of mastication and THIN liquids, pills WHOLE in liquid. Oral Medication Intake: Whole with Liquid Please contact the pharmacy regarding appropriate crushable or liquid drug formulations that are available whenever modified delivery is recommended. Compensatory Strategies and Precautions to be Taken for Safe Swallow: Sitting Upright (90 deg) Small Bites and Sips Alternate Liquids/Solids Rate of Ingestion Change Avoid Specific Foods Supervision While Eating and Drinking for Safe Swallow: Intermittent Supervision Foods to Avoid: Hard, tough to chew solids Swallowing Recommended Treatments: Compens. Strategy Educat. Recommendation for Speech: Inpatient Speech Therapy Comment: 1-2 f/u during inpatient stay to monitor tolerance of modified diet Frequency/Duration: 1-2 f/u Date Range for Service Req: Timeline to reassess: [place] Supervisor Clinican/Clinical Fellow: No Supervisory Statement: I have reviewed and agree with the student/clinical fellow's documentation: N/A Speech Language Pathologist: Jessica Reynoso M.A., [facility]
--- NOTE | 2023-09-02 16:18 | PM.EVENT ---
Event Note Date of Service: 09/02/23 Event Note: admitted this morning Patient seen and examined, neuro symptoms have resolved. discussed with Neuro, given unremarkable mri and ct no further testing. pt is recommending str, med completed, continue ASA, statin, bp meds. Time Spent With Patient Time: Total time managing care of this patient today ____ minutes.
[2023-09-02 18:18] LABS: Glucose, Whole Blood 165 mg/dL (60-115)
[2023-09-02] MEDS: Insulin Lispro 100 UNIT/ML 3 ML VIAL SUBCUT ×2 (18:48→22:03)
--- NOTE | 2023-09-02 19:41 | MHC.EDTECH ---
Pt up to commode with assistance from 2 ED techs. Pt rang call emerson and T/w found back in bed independently. Pt boosted/repositioned. Vital signs taken. Callbell within reach.
[2023-09-02 21:22] LABS: Glucose, Whole Blood 238 mg/dL (60-115)
[2023-09-02] MEDS: Calcium + Vitamin D 250 MG TABLET 500 MG PO (22:02)
[2023-09-02] MEDS: Insulin Glargine,Hum.rec.anlog 100 UNIT/ML 10 ML VIAL 25 UNIT SUBCUT (22:03)
[2023-09-02] MEDS: Latanoprost 0.005 % Ophth Sol 2.5 ML DROPS 1 DROP EYE-BOTH (22:08)
[2023-09-03] VITALS (7 sets, daily range): BP systolic 106–171; BP diastolic 53–97; PULSE 65–76; RESP 16–20; TEMP 36.2–36.6; O2SAT 92–96; BMI 41.6
--- NOTE | 2023-09-03 02:33 | PC.NURSE ---
Pt sleeping at the bedside. No apparent distress noted. Breaths are even regular and unlabored with equal chest rises. Monitoring is ongoing.
[2023-09-03] MEDS: Levothyroxine Sodium 75 MCG TABLET PO (06:14)
[2023-09-03] MEDS: Omeprazole 20 MG CAPSULE.DR PO (06:14)
[2023-09-03 07:17] LABS: Cholesterol 140 mg/dL (<200); HDL Cholesterol 35 mg/dL (>40); LDL Cholesterol Calculated 86 mg/dL (<100); Triglycerides 96 mg/dL (<150)
[2023-09-03 07:42] LABS: Glucose, Whole Blood 149 mg/dL (60-115)
[2023-09-03] MEDS: Fluticasone Propionate 100 MCG BLST.W.DEV 2 PUFF INHALE (09:01)
[2023-09-03] MEDS: Enoxaparin Sodium 40 MG/0.4 ML SYRINGE SUBCUT (10:07)
[2023-09-03] MEDS: Primidone 50 MG TABLET PO ×2 (10:08→21:13)
[2023-09-03] MEDS: Calcium + Vitamin D 250 MG TABLET 500 MG PO ×2 (10:08→21:13)
[2023-09-03] MEDS: Cholecalciferol (Vitamin D3) 25 MCG TABLET 50 MCG PO (10:08)
[2023-09-03] MEDS: Aspirin Enteric Coated 81 MG TABLET.DR PO (10:08)
[2023-09-03] MEDS: Multivitamin TABLET 1 TAB PO (10:08)
[2023-09-03] MEDS: Pregabalin 100 MG CAPSULE PO ×2 (10:08→21:13)
[2023-09-03] MEDS: Metoprolol Succinate ER 50 MG TAB.ER.24H PO (10:09)
[2023-09-03] MEDS: Ferrous Sulfate 324 MG TABLET.DR PO (10:09)
[2023-09-03] MEDS: Cyanocobalamin (Vitamin B-12) 1,000 MCG TABLET 1000 MCG PO (10:09)
[2023-09-03] MEDS: Atorvastatin Calcium 40 MG TABLET PO (10:09)
--- NOTE | 2023-09-03 10:13 | MHC.CM.PN ---
Per MD, Patient is medically cleared for dc today to go to Rehab today. PT is recommending Acute Rehab and referrals have now been made to the 3 area Acute Rehabs in this care. Will also need [facility] auth; CM will follow.
--- NOTE | 2023-09-03 10:59 | MHC.CM.PN ---
Acute Rehabs are unable to obtain [facility] auth over the holiday weekend; MD is aware and CM will follow.
[2023-09-03 11:58] LABS: Glucose, Whole Blood 218 mg/dL (60-115)
--- NOTE | 2023-09-03 12:47 | HO.PM.IMPN ---
Subjective Subjective Date of Service: 09/03/23 Interval History: f/u slur speech is better, weakness in legs, mri and ct sow aute cva Physical Exam Vital Signs: Vital Signs: Last Vital Signs Temp 97.9 F 09/03/23 12:00 Pulse 76 09/03/23 12:00 Resp 20 09/03/23 12:00 BP 139/82 09/03/23 12:00 Pulse Ox 94 09/03/23 12:00 O2 Del Method Room Air 09/03/23 12:00 BMI result Body Mass Index 41.6 Objective Data Active Medications Acetaminophen (Acetaminophen 325 Mg Tablet) 650 mg PO Q6H PRN PRN Reason: Pain, Mild (Pain Scale 1-3) Albuterol Sulfate (Albuterol Sulfate 90 Mcg 8 Gm Inhaler) 1 puff INHALE DAILY PRN PRN Reason: Shortness of Breath Aspirin (Aspirin Enteric Coated 81 Mg Tablet.) 81 mg PO DAILY COUNT INCLUDES [facility] Last Admin: 09/03/23 10:08 Dose: 81 mg Documented By: MAULIK Atorvastatin Calcium (Atorvastatin Calcium 40 Mg Tablet) 40 mg PO DAILY COUNT INCLUDES [facility] Last Admin: 09/03/23 10:09 Dose: 40 mg Documented By: MAULIK Calcium Carbonate/Cholecalciferol (Calcium + Vitamin D 250 Mg Tablet) 500 mg PO BID COUNT INCLUDES [facility] Last Admin: 09/03/23 10:08 Dose: 500 mg Documented By: MAULIK Cyanocobalamin (Cyanocobalamin (Vitamin B-12) 1,000 Mcg Tablet) 1,000 mcg PO DAILY COUNT INCLUDES [facility] Last Admin: 09/03/23 10:09 Dose: 1,000 mcg Documented By: MAULIK Enoxaparin Sodium (Enoxaparin Sodium 40 Mg/0.4 Ml Syringe) 40 mg SUBCUT DAILY COUNT INCLUDES [facility] Last Admin: 09/03/23 10:07 Dose: 40 mg Documented By: MAULIK Ferrous Sulfate (Ferrous Sulfate 324 Mg Tablet.) 324 mg PO DAILY COUNT INCLUDES [facility] Last Admin: 09/03/23 10:09 Dose: 324 mg Documented By: MAULIK Fluticasone Propionate (Fluticasone Propionate Nasal 16 Gm [place]) 1 spray NOSTRIL-B DAILY COUNT [facility]CLUDES [facility] Last Admin: 09/03/23 10:11 Dose: Not Given Documented By: MAULIK Non-Admin Reason: Med Not Available Fluticasone Propionate (Fluticasone Propionate 100 Mcg Blst.W.Dev) 2 puff INHALE RDAILY COUNT INCLUDES [facility] Last Admin: 09/03/23 09:01 Dose: 2 puff Documented By: SALIMA Glucose (Glucose Gel 15 Gm Gel..Gram.) 15 gm PO Q15M PRN; Protocol PRN Reason: per Hypoglycemia Standing Ord. Dextrose (D10) 250 mls @ 750 mls/hr IV Q15M PRN; Protocol PRN Reason: per Hypoglycemia Standing Ord. Insulin Glargine (Insulin Glargine,Hum.Rec.Anlog 100 Unit/Ml 10 Ml Vial) 25 unit SUBCUT BEDTIME COUNT INCLUDES [facility] Last Admin: 09/02/23 22:03 Dose: 25 unit Documented By: DARREN Insulin Human Lispro (Insulin Lispro 100 Unit/Ml 3 Ml Vial) 0 unit SUBCUT QIDACHS COUNT INCLUDES THE [facility]; Protocol Last Admin: 09/03/23 12:22 Dose: Not Given Documented By: MAULIK Non-Admin Reason: Patient Refused Latanoprost (Latanoprost 0.005 % Oph Karmen 2.5 Ml Drops) 1 drop EYE-BOTH BEDTIME COUNT INCLUDES THE [facility] Last Admin: 09/02/23 22:08 Dose: 1 drop Documented By: DARREN Levothyroxine Sodium (Levothyroxine Sodium 75 Mcg Tablet) 75 mcg PO DAILY@0600 [facility]CLUDES [facility] Last Admin: 09/03/23 06:14 Dose: 75 mcg Documented By: DARREN Melatonin (Melatonin 3 Mg Tablet) 6 mg PO BEDTIME PRN PRN Reason: Insomnia Metoprolol Succinate (Metoprolol Succinate Er 50 Mg Tab.Er.24h) 50 mg PO DAILY COUNT INCLUDES [facility]; Protocol Last Admin: 09/03/23 10:09 Dose: 50 mg Documented By: MAULIK Multivitamins/Vitamin C (Multivitamin Tablet) 1 tab PO DAILY COUNT INCLUDES [facility] Last Admin: 09/03/23 10:08 Dose: 1 tab Documented By: MAULIK Non-Formulary Medication (Diclofenac Sodium) 1 each TOPICAL DAILY COUNT INCLUDES [facility] Omeprazole (Omeprazole 20 Mg Capsule.) 20 mg PO DAILY@0630 COUNT [facility]CLUDES [facility] Last Admin: 09/03/23 06:14 Dose: 20 mg Documented By: DARREN Ondansetron HCl (Ondansetron Hcl 4 Mg/2 Ml Vial) 4 mg IVPUSH Q8H PRN PRN Reason: Nausea and Vomiting Pregabalin (Pregabalin 100 Mg Capsule) 100 mg PO BID COUNT INCLUDES [facility] Last Admin: 09/03/23 10:08 Dose: 100 mg Documented By: MAULIK Primidone (Primidone 50 Mg Tablet) 50 mg PO BID COUNT INCLUDES [facility] Last Admin: 09/03/23 10:08 Dose: 50 mg Documented By: MAULIK Vitamin D (Cholecalciferol (Vitamin D3) 25 Mcg Tablet) 50 mcg PO DAILY COUNT INCLUDES [facility] Last Admin: 09/03/23 10:08 Dose: 50 mcg Documented By: MAULIK Labs 09/02/23 05:26 09/02/23 05:26 Labs: Laboratory Results - last 24 hr 09/02/23 09/02/23 09/03/23 18:07 21:18 06:46 Hold Purple Top SEE NOTE POC Glucose 165 H 238 H Triglycerides 96 Cholesterol 140 LDL Cholesterol, Calc 86 HDL Cholesterol 35 L 09/03/23 09/03/23 07:34 11:52 Hold Purple Top POC Glucose 149 H 218 H Triglycerides Cholesterol LDL Cholesterol, Calc HDL Cholesterol Assessment and Plan (1) Slurred speech: Status: Acute (2) Weakness: Status: Acute Plan T his is a 78-year-old female with pertinent history of insulin-dependent diabetes mellitus, hypertension, mixed hyperlipidemia, mood disorder, asthma not on home oxygen, hypothyroidism who presents to the emergency department for evaluation of slurred speech. Slurred speech, transient and weakness, possible TIA. no CVA or MRI either. -continue ASA, BP control, statin, PT/OT recommend STR Insulin-dependent diabetes mellitus: Continue Lantus, and slidding, hold metformin 48 after contrast Hypertension: continue meds Hypothyroidism: On levothyroxine Gastroesophageal reflux disease: On PPI Mood disorder: Continue home mood stabilizers DVT prophylaxis: Lovenox Full code. Discussed with family and patient at bedside awaiting rehab bed Quality Stroke Does the patient have a stroke diagnosis?: No VTE Prior VTE?: No VTE Risk Level:: Medical - moderate - high VTE Device Contraindication: Treatment Not Indicated VTE Drug Contraindication: N/A - Med Ordered
[2023-09-03 16:09] LABS: Glucose, Whole Blood 267 mg/dL (60-115)
[2023-09-03 20:44] LABS: Glucose, Whole Blood 257 mg/dL (60-115)
[2023-09-03] MEDS: Latanoprost 0.005 % Ophth Sol 2.5 ML DROPS 1 DROP EYE-BOTH (21:13)
[2023-09-03] MEDS: Insulin Lispro 100 UNIT/ML 3 ML VIAL SUBCUT (21:13)
[2023-09-03] MEDS: Insulin Glargine,Hum.rec.anlog 100 UNIT/ML 10 ML VIAL 25 UNIT SUBCUT (21:13)
[2023-09-04] VITALS (8 sets, daily range): BP systolic 120–159; BP diastolic 62–80; PULSE 59–70; RESP 16–20; TEMP 36.1–36.3; O2SAT 96–98
[2023-09-04] MEDS: Omeprazole 20 MG CAPSULE.DR PO (06:04)
[2023-09-04] MEDS: Levothyroxine Sodium 75 MCG TABLET PO (06:04)
[2023-09-04] MEDS: Fluticasone Propionate 100 MCG BLST.W.DEV 2 PUFF INHALE (07:33)
[2023-09-04 07:39] LABS: Glucose, Whole Blood 151 mg/dL (60-115)
[2023-09-04] MEDS: Metoprolol Succinate ER 50 MG TAB.ER.24H PO (08:32)
[2023-09-04] MEDS: hydroCHLOROthiazide 12.5 MG TABLET PO (08:32)
[2023-09-04] MEDS: Primidone 50 MG TABLET PO ×2 (08:32→22:00)
[2023-09-04] MEDS: Cholecalciferol (Vitamin D3) 25 MCG TABLET 50 MCG PO (08:32)
[2023-09-04] MEDS: Calcium + Vitamin D 250 MG TABLET 500 MG PO ×2 (08:32→21:59)
[2023-09-04] MEDS: Enoxaparin Sodium 40 MG/0.4 ML SYRINGE SUBCUT (08:33)
[2023-09-04] MEDS: Pregabalin 100 MG CAPSULE PO ×2 (08:33→21:59)
[2023-09-04] MEDS: Losartan Potassium 50 MG TABLET PO (08:33)
[2023-09-04] MEDS: Ferrous Sulfate 324 MG TABLET.DR PO (08:33)
[2023-09-04] MEDS: Cyanocobalamin (Vitamin B-12) 1,000 MCG TABLET 1000 MCG PO (08:33)
[2023-09-04] MEDS: Atorvastatin Calcium 40 MG TABLET PO (08:33)
[2023-09-04] MEDS: Aspirin Enteric Coated 81 MG TABLET.DR PO (08:33)
[2023-09-04] MEDS: Multivitamin TABLET 1 TAB PO (08:33)
--- NOTE | 2023-09-04 09:31 | P.PNIM_ITS ---
Subjective Subjective Date of Service: 09/04/23 Interval History: No slur speech, has some heaviness in the leg, mri and ct sow aute cva Physical Exam 2 Vital Signs: Vital Signs: Last Vital Signs Temp 97.3 F 09/04/23 07:40 Pulse 65 09/04/23 08:32 Resp 20 09/04/23 07:40 BP 140/66 H 09/04/23 08:32 Pulse Ox 96 09/04/23 07:40 O2 Del Method Room Air 09/04/23 07:40 BMI result Body Mass Index 41.6 General: AO X 3, no acute distress Resp: CTA bilateral CVS: S1,S2,RRR GI: +BS, NT, no distention Skin: No rash Neuro: motor grossly intact, move all extremities Psych: appropriate affect Objective Data Active Medications Acetaminophen (Acetaminophen 325 Mg Tablet) 650 mg PO Q6H PRN PRN Reason: Pain, Mild (Pain Scale 1-3) Albuterol Sulfate (Albuterol Sulfate 90 Mcg 8 Gm Inhaler) 1 puff INHALE DAILY PRN PRN Reason: Shortness of Breath Aspirin (Aspirin Enteric Coated 81 Mg Tablet.) 81 mg PO DAILY [facility] Last Admin: 09/04/23 08:33 Dose: 81 mg Documented By: ARTIE Atorvastatin Calcium (Atorvastatin Calcium 40 Mg Tablet) 40 mg PO DAILY [facility] Last Admin: 09/04/23 08:33 Dose: 40 mg Documented By: ARTIE Calcium Carbonate/Cholecalciferol (Calcium + Vitamin D 250 Mg Tablet) 500 mg PO BID [facility] Last Admin: 09/04/23 08:32 Dose: 500 mg Documented By: ARTIE Cyanocobalamin (Cyanocobalamin (Vitamin B-12) 1,000 Mcg Tablet) 1,000 mcg PO DAILY [facility] Last Admin: 09/04/23 08:33 Dose: 1,000 mcg Documented By: ARTIE Enoxaparin Sodium (Enoxaparin Sodium 40 Mg/0.4 Ml Syringe) 40 mg SUBCUT DAILY [facility] Last Admin: 09/04/23 08:33 Dose: 40 mg Documented By: ARTIE Ferrous Sulfate (Ferrous Sulfate 324 Mg Tablet.) 324 mg PO DAILY [facility] Last Admin: 09/04/23 08:33 Dose: 324 mg Documented By: ARTIE Fluticasone Propionate (Fluticasone Propionate Nasal 16 Gm [place]) 1 spray NOSTRIL-B DAILY [facility] Last Admin: 09/03/23 10:11 Dose: Not Given Documented By: MAULIK Non-Admin Reason: Med Not Available Fluticasone Propionate (Fluticasone Propionate 100 Mcg Blst.W.Dev) 2 puff INHALE RDAILY [facility] Last Admin: 09/04/23 07:33 Dose: 2 puff Documented By: JAY Glucose (Glucose Gel 15 Gm Gel..Gram.) 15 gm PO Q15M PRN; Protocol PRN Reason: per Hypoglycemia Standing Ord. Hydrochlorothiazide (Hydrochlorothiazide 12.5 Mg Tablet) 12.5 mg PO DAILY [facility] Last Admin: 09/04/23 08:32 Dose: 12.5 mg Documented By: ARTIE Dextrose (D10) 250 mls @ 750 mls/hr IV Q15M PRN; Protocol PRN Reason: per Hypoglycemia Standing Ord. Insulin Glargine (Insulin Glargine,Hum.Rec.Anlog 100 Unit/Ml 10 Ml Vial) 25 unit SUBCUT BEDTIME [facility] Last Admin: 09/03/23 21:13 Dose: 25 unit Documented By: MAULIK Insulin Human Lispro (Insulin Lispro 100 Unit/Ml 3 Ml Vial) 0 unit SUBCUT QIDACHS [facility]; Protocol Last Admin: 09/04/23 08:31 Dose: Not Given Documented By: ARTIE Non-Admin Reason: Patient Refused Latanoprost (Latanoprost 0.005 % Ophth Karmen 2.5 Ml Drops) 1 drop EYE-BOTH BEDTIME [facility] Last Admin: 09/03/23 21:13 Dose: 1 drop Documented By: MAULIK Levothyroxine Sodium (Levothyroxine Sodium 75 Mcg Tablet) 75 mcg PO DAILY@0600 [facility] Last Admin: 09/04/23 06:04 Dose: 75 mcg Documented By: J LUIS Losartan Potassium (Losartan Potassium 50 Mg Tablet) 50 mg PO DAILY [facility] Last Admin: 09/04/23 08:33 Dose: 50 mg Documented By: ARTIE Melatonin (Melatonin 3 Mg Tablet) 6 mg PO BEDTIME PRN PRN Reason: Insomnia Metoprolol Succinate (Metoprolol Succinate Er 50 Mg Tab.Er.24h) 50 mg PO DAILY [facility]; Protocol Last Admin: 09/04/23 08:32 Dose: 50 mg Documented By: ARTIE Multivitamins/Vitamin C (Multivitamin Tablet) 1 tab PO DAILY [facility] Last Admin: 09/04/23 08:33 Dose: 1 tab Documented By: ARTIE Omeprazole (Omeprazole 20 Mg Capsule.) 20 mg PO DAILY@0630 [facility] Last Admin: 09/04/23 06:04 Dose: 20 mg Documented By: J LUIS Ondansetron HCl (Ondansetron Hcl 4 Mg/2 Ml Vial) 4 mg IVPUSH Q8H PRN PRN Reason: Nausea and Vomiting Pregabalin (Pregabalin 100 Mg Capsule) 100 mg PO BID [facility] Last Admin: 09/04/23 08:33 Dose: 100 mg Documented By: ARTIE Primidone (Primidone 50 Mg Tablet) 50 mg PO BID [facility] Last Admin: 09/04/23 08:32 Dose: 50 mg Documented By: ARTIE Vitamin D (Cholecalciferol (Vitamin D3) 25 Mcg Tablet) 50 mcg PO DAILY [facility] Last Admin: 09/04/23 08:32 Dose: 50 mcg Documented By: ARTIE Labs 09/02/23 05:26 09/02/23 05:26 Labs: Laboratory Results - last 24 hr 09/03/23 09/03/23 09/03/23 11:52 16:06 20:34 POC Glucose 218 H 267 H 257 H 09/04/23 07:33 POC Glucose 151 H Assessment and Plan (1) Weakness: Status: Acute (2) Slurred speech: Status: Acute Plan 78-year-old female with pertinent history of insulin-dependent diabetes mellitus, hypertension, mixed hyperlipidemia, mood disorder, asthma not on home oxygen, hypothyroidism who presents to the emergency department for evaluation of slurred speech. Slurred speech, transient and weakness, possible TIA. no CVA or MRI either. -continue ASA, BP control, statin, PT/OT recommend STR Insulin-dependent diabetes mellitus: Continue Lantus, and slidding, hold metformin 48 after contrast Hypertension: continue meds Hypothyroidism: On levothyroxine Gastroesophageal reflux disease: On PPI Mood disorder: Continue home mood stabilizers DVT prophylaxis: Lovenox Full code. Discussed with family and patient at bedside awaiting rehab bed Quality Stroke Does the patient have a stroke diagnosis?: No VTE Prior VTE?: No VTE Risk Level:: Medical - moderate - high VTE Device Contraindication: Treatment Not Indicated VTE Drug Contraindication: N/A - Med Ordered
[2023-09-04 11:27] LABS: Glucose, Whole Blood 204 mg/dL (60-115)
[2023-09-04 16:11] LABS: Glucose, Whole Blood 237 mg/dL (60-115)
--- NOTE | 2023-09-04 16:43 | PC.NURSE ---
Pt is refusing Insulin, she states she only wants the Lantus scheduled for 2100, education provided.MD aware, all further needs have been met at this time.
[2023-09-04] MEDS: Insulin Glargine,Hum.rec.anlog 100 UNIT/ML 10 ML VIAL 25 UNIT SUBCUT (22:00)
[2023-09-04] MEDS: Latanoprost 0.005 % Ophth Sol 2.5 ML DROPS 1 DROP EYE-BOTH (22:02)
[2023-09-04 22:16] LABS: Glucose, Whole Blood 215 mg/dL (60-115)
[2023-09-05] VITALS (8 sets, daily range): BP systolic 101–170; BP diastolic 58–72; PULSE 63–76; RESP 17–20; TEMP 35.7–36.7; O2SAT 94–98
[2023-09-05] MEDS: Levothyroxine Sodium 75 MCG TABLET PO (06:09)
[2023-09-05] MEDS: Omeprazole 20 MG CAPSULE.DR PO (06:09)
[2023-09-05] MEDS: Fluticasone Propionate 100 MCG BLST.W.DEV 2 PUFF INHALE (07:30)
[2023-09-05 07:31] LABS: Glucose, Whole Blood 151 mg/dL (60-115)
[2023-09-05] MEDS: Multivitamin TABLET 1 TAB PO (08:26)
[2023-09-05] MEDS: Atorvastatin Calcium 40 MG TABLET PO (08:26)
[2023-09-05] MEDS: Calcium + Vitamin D 250 MG TABLET 500 MG PO ×2 (08:26→22:00)
[2023-09-05] MEDS: Pregabalin 100 MG CAPSULE PO ×2 (08:26→22:00)
[2023-09-05] MEDS: Aspirin Enteric Coated 81 MG TABLET.DR PO (08:27)
[2023-09-05] MEDS: Cholecalciferol (Vitamin D3) 25 MCG TABLET 50 MCG PO (08:27)
[2023-09-05] MEDS: Cyanocobalamin (Vitamin B-12) 1,000 MCG TABLET 1000 MCG PO (08:27)
[2023-09-05] MEDS: Losartan Potassium 50 MG TABLET PO (08:27)
[2023-09-05] MEDS: Primidone 50 MG TABLET PO ×2 (08:27→21:59)
[2023-09-05] MEDS: Metoprolol Succinate ER 50 MG TAB.ER.24H PO (08:27)
[2023-09-05] MEDS: hydroCHLOROthiazide 12.5 MG TABLET PO (08:27)
[2023-09-05] MEDS: Ferrous Sulfate 324 MG TABLET.DR PO (08:27)
[2023-09-05] MEDS: Enoxaparin Sodium 40 MG/0.4 ML SYRINGE SUBCUT (08:28)
--- NOTE | 2023-09-05 10:34 | HO.PM.IMPN ---
Subjective Subjective Date of Service: 09/05/23 Interval History: No slur speech, has some pain in the left leg, mild heaviness Physical Exam Vital Signs: Vital Signs: Last Vital Signs Temp 97.1 F 09/05/23 07:51 Pulse 64 09/05/23 07:51 Resp 20 09/05/23 07:51 BP 139/60 09/05/23 07:51 Pulse Ox 94 09/05/23 07:51 O2 Del Method Room Air 09/05/23 07:51 BMI result Body Mass Index 41.6 General: AO X 3, no acute distress Resp: CTA bilateral CVS: S1,S2,RRR GI: +BS, NT, no distention Skin: No rash Neuro: motor grossly intact, move all extremities, Psych: appropriate affect Objective Data Active Medications Acetaminophen (Acetaminophen 325 Mg Tablet) 650 mg PO Q6H PRN PRN Reason: Pain, Mild (Pain Scale 1-3) Albuterol Sulfate (Albuterol Sulfate 90 Mcg 8 Gm Inhaler) 1 puff INHALE DAILY PRN PRN Reason: Shortness of Breath Aspirin (Aspirin Enteric Coated 81 Mg Tablet.) 81 mg PO DAILY [facility] Last Admin: 09/05/23 08:27 Dose: 81 mg Documented By: J LUIS Atorvastatin Calcium (Atorvastatin Calcium 40 Mg Tablet) 40 mg PO DAILY [facility] Last Admin: 09/05/23 08:26 Dose: 40 mg Documented By: J LUIS Calcium Carbonate/Cholecalciferol (Calcium + Vitamin D 250 Mg Tablet) 500 mg PO BID [facility] Last Admin: 09/05/23 08:26 Dose: 500 mg Documented By: J LUIS Cyanocobalamin (Cyanocobalamin (Vitamin B-12) 1,000 Mcg Tablet) 1,000 mcg PO DAILY [facility] Last Admin: 09/05/23 08:27 Dose: 1,000 mcg Documented By: J LUIS Enoxaparin Sodium (Enoxaparin Sodium 40 Mg/0.4 Ml Syringe) 40 mg SUBCUT DAILY [facility] Last Admin: 09/05/23 08:28 Dose: 40 mg Documented By: J LUIS Ferrous Sulfate (Ferrous Sulfate 324 Mg Tablet.) 324 mg PO DAILY [facility] Last Admin: 09/05/23 08:27 Dose: 324 mg Documented By: J LUIS Fluticasone Propionate (Fluticasone Propionate Nasal 16 Gm [place]) 1 spray NOSTRIL-B DAILY [facility] Last Admin: 09/05/23 08:33 Dose: Not Given Documented By: J LUIS Non-Admin Reason: Patient Refused Fluticasone Propionate (Fluticasone Propionate 100 Mcg Blst.W.Dev) 2 puff INHALE RDAILY [facility] Last Admin: 09/05/23 07:30 Dose: 2 puff Documented By: FARHAN Glucose (Glucose Gel 15 Gm Gel..Gram.) 15 gm PO Q15M PRN; Protocol PRN Reason: per Hypoglycemia Standing Ord. Hydrochlorothiazide (Hydrochlorothiazide 12.5 Mg Tablet) 12.5 mg PO DAILY [facility] Last Admin: 09/05/23 08:27 Dose: 12.5 mg Documented By: J LUIS Dextrose (D10) 250 mls @ 750 mls/hr IV Q15M PRN; Protocol PRN Reason: per Hypoglycemia Standing Ord. Insulin Glargine (Insulin Glargine,Hum.Rec.Anlog 100 Unit/Ml 10 Ml Vial) 25 unit SUBCUT BEDTIME [facility] Last Admin: 09/04/23 22:00 Dose: 25 unit Documented By: INGRID Insulin Human Lispro (Insulin Lispro 100 Unit/Ml 3 Ml Vial) 0 unit SUBCUT QIDACHS [facility]; Protocol Last Admin: 09/05/23 08:28 Dose: Not Given Documented By: J LUIS Non-Admin Reason: Patient Refused Latanoprost (Latanoprost 0.005 % Ophth Karmen 2.5 Ml Drops) 1 drop EYE-BOTH BEDTIME [facility] Last Admin: 09/04/23 22:02 Dose: 1 drop Documented By: INGRID Levothyroxine Sodium (Levothyroxine Sodium 75 Mcg Tablet) 75 mcg PO DAILY@0600 [facility] Last Admin: 09/05/23 06:09 Dose: 75 mcg Documented By: J LUIS Losartan Potassium (Losartan Potassium 50 Mg Tablet) 50 mg PO DAILY [facility] Last Admin: 09/05/23 08:27 Dose: 50 mg Documented By: J LUIS Melatonin (Melatonin 3 Mg Tablet) 6 mg PO BEDTIME PRN PRN Reason: Insomnia Metoprolol Succinate (Metoprolol Succinate Er 50 Mg Tab.Er.24h) 50 mg PO DAILY [facility]; Protocol Last Admin: 09/05/23 08:27 Dose: 50 mg Documented By: J LUIS Multivitamins/Vitamin C (Multivitamin Tablet) 1 tab PO DAILY [facility] Last Admin: 09/05/23 08:26 Dose: 1 tab Documented By: J LUIS Omeprazole (Omeprazole 20 Mg Capsule.) 20 mg PO DAILY@0630 [facility] Last Admin: 09/05/23 06:09 Dose: 20 mg Documented By: J LUIS Ondansetron HCl (Ondansetron Hcl 4 Mg/2 Ml Vial) 4 mg IVPUSH Q8H PRN PRN Reason: Nausea and Vomiting Pregabalin (Pregabalin 100 Mg Capsule) 100 mg PO BID [facility] Last Admin: 09/05/23 08:26 Dose: 100 mg Documented By: J LUIS Primidone (Primidone 50 Mg Tablet) 50 mg PO BID [facility] Last Admin: 09/05/23 08:27 Dose: 50 mg Documented By: J LUIS Vitamin D (Cholecalciferol (Vitamin D3) 25 Mcg Tablet) 50 mcg PO DAILY [facility] Last Admin: 09/05/23 08:27 Dose: 50 mcg Documented By: J LUIS Labs 09/02/23 05:26 09/02/23 05:26 Labs: Laboratory Results - last 24 hr 09/04/23 09/04/23 09/04/23 11:14 16:02 22:05 POC Glucose 204 H 237 H 215 H 09/05/23 07:28 POC Glucose 151 H Assessment and Plan (1) Weakness: Status: Acute (2) Slurred speech: Status: Acute Plan 78-year-old female with pertinent history of insulin-dependent diabetes mellitus, hypertension, mixed hyperlipidemia, mood disorder, asthma not on home oxygen, hypothyroidism who presents to the emergency department for evaluation of slurred speech. Slurred speech, transient and weakness, possible TIA. no CVA or MRI either. -continue ASA, BP control, statin, PT/OT recommend STR Insulin-dependent diabetes mellitus: Continue Lantus, and slidding, restart metformin. She has been refusing sliding scale Hypertension: HCTZ, losartan and Metoprolol Hypothyroidism: On levothyroxine Gastroesophageal reflux disease: On PPI DVT prophylaxis: Lovenox Full code. Discussed with family and patient at bedside awaiting rehab bed Quality Stroke Does the patient have a stroke diagnosis?: No VTE Prior VTE?: No VTE Risk Level:: Medical - moderate - high VTE Device Contraindication: Treatment Not Indicated VTE Drug Contraindication: N/A - Med Ordered
[2023-09-05 12:19] LABS: Glucose, Whole Blood 197 mg/dL (60-115)
[2023-09-05] MEDS: metFORMIN HCl ER 500 MG TAB.ER.24H 1000 MG PO ×2 (12:26→21:58)
[2023-09-05] MEDS: Ascorbic Acid 250 MG TABLET PO (12:26)
--- NOTE | 2023-09-05 13:14 | MHC.SL.SWA ---
Risk of Aspiration Due to: Neurological Condition Dysphasia Diet Status: UPGRADE Liquid Consistency and Strategies for Safe Swallow: Liquid Intake Recommendation: Thin Liquid Intake Strategies: Small Sips Solid Food Consistency: Dietary Recommendations: Chopped/Advanced (NDD3) Additional Modifications to Solid Foods: Moisten in sauce/gravy Oral Medication Intake: Whole with Liquid Please contact the pharmacy regarding appropriate crushable or liquid drug formulations that are available whenever modified delivery is recommended. Compensatory Strategies and Precautions to be Taken for Safe Swallow: Sitting Upright (90 deg) Small Bites and Sips Alternate Liquids/Solids Rate of Ingestion Change Avoid Specific Foods Supervision While Eating and Drinking for Safe Swallow: Intermittent Supervision Foods to Avoid: Hard, tough to chew solids, dry solids Swallowing Recommended Treatments: Compens. Strategy Educat. Recommendation for Speech: Inpatient Speech Therapy Comment: Recommend UPGRADE to CHOPPED/ADVANCED solids (NDD3). Continue w/ THIN liquids and pills WHOLE in liquid. Recommend intermittent supervision. FIRST OFFICER to continue to follow to monitor toleration of diet and upgrade if/when warranted. [employer] Team Member Clinican/Clinical Fellow: No Supervisory Statement: I have reviewed and agree with the student/clinical fellow's documentation: N/A Speech Language Pathologist: Florinda Jovel M.A., [facility]-FIRST OFFICER
[2023-09-05 17:11] LABS: Glucose, Whole Blood 248 mg/dL (60-115)
[2023-09-05] MEDS: Insulin Lispro 100 UNIT/ML 3 ML VIAL SUBCUT (17:26)
[2023-09-05 21:36] LABS: Glucose, Whole Blood 153 mg/dL (60-115)
[2023-09-05] MEDS: Latanoprost 0.005 % Ophth Sol 2.5 ML DROPS 1 DROP EYE-BOTH (22:02)
[2023-09-05] MEDS: Insulin Glargine,Hum.rec.anlog 100 UNIT/ML 10 ML VIAL 25 UNIT SUBCUT (22:09)
[2023-09-06] VITALS (14 sets, daily range): BP systolic 104–153; BP diastolic 52–68; PULSE 62–100; RESP 15–20; TEMP 36–36.4; O2SAT 96–99
[2023-09-06] MEDS: Levothyroxine Sodium 75 MCG TABLET PO (06:30)
[2023-09-06] MEDS: Omeprazole 20 MG CAPSULE.DR PO (06:30)
[2023-09-06] MEDS: Fluticasone Propionate 100 MCG BLST.W.DEV 2 PUFF INHALE (07:53)
[2023-09-06 08:08] LABS: Glucose, Whole Blood 159 mg/dL (60-115)
[2023-09-06] MEDS: Enoxaparin Sodium 40 MG/0.4 ML SYRINGE SUBCUT (08:46)
[2023-09-06] MEDS: Losartan Potassium 50 MG TABLET PO (08:47)
[2023-09-06] MEDS: Aspirin Enteric Coated 81 MG TABLET.DR PO (08:47)
[2023-09-06] MEDS: Metoprolol Succinate ER 50 MG TAB.ER.24H PO (08:47)
[2023-09-06] MEDS: Atorvastatin Calcium 40 MG TABLET PO (08:47)
[2023-09-06] MEDS: Pregabalin 100 MG CAPSULE PO ×2 (08:48→20:44)
[2023-09-06] MEDS: Cholecalciferol (Vitamin D3) 25 MCG TABLET 50 MCG PO (08:48)
[2023-09-06] MEDS: Ascorbic Acid 250 MG TABLET PO (08:48)
[2023-09-06] MEDS: Cyanocobalamin (Vitamin B-12) 1,000 MCG TABLET 1000 MCG PO (08:48)
[2023-09-06] MEDS: metFORMIN HCl ER 500 MG TAB.ER.24H 1000 MG PO ×2 (08:48→20:21)
[2023-09-06] MEDS: Ferrous Sulfate 324 MG TABLET.DR PO (08:49)
[2023-09-06] MEDS: Primidone 50 MG TABLET PO ×2 (08:49→20:21)
[2023-09-06] MEDS: Multivitamin TABLET 1 TAB PO (08:49)
[2023-09-06] MEDS: hydroCHLOROthiazide 12.5 MG TABLET PO (08:49)
[2023-09-06] MEDS: Calcium + Vitamin D 250 MG TABLET 500 MG PO ×2 (08:49→20:20)
--- NOTE | 2023-09-06 08:49 | P.DS_ITS ---
DS: Providers Provider Date of Service: 09/07/23 Date of admission: 09/02/23 02:18 Primary care physician: Nahomy Kessler MD Consults: 09/02/23 02:18 Consult to Neurology Routine Consulting Provider: [facility] Reason for consultation: CVA 09/06/23 08:12 Consult to Neurology Routine Consulting Provider: [facility] Reason for consultation: left weakness Has provider been notified: No DS: Diagnosis Discharge Diagnosis (1) Weakness: Status: Acute (2) Slurred speech: Status: Acute DS: Summary Hospital Course Hospital Course: admission hpi Chief Complaint: Slurred speech This is a 78-year-old female with pertinent history of insulin-dependent diabetes mellitus, hypertension, mixed hyperlipidemia, mood disorder, asthma not on home oxygen, hypothyroidism who presents to the emergency department for evaluation of slurred speech. Patient states that she was going to bed she had difficulty with speech. Also noticed heaviness of her left arm and difficulty moving her left leg. Patient's speech is now better in the ER. No rhythmic jerking movement of extremities. No fever, chills, chest discomfort, palpitations, abdominal pain, shortness for breath, changes in urinary or bowel habits. History was also obtained with the help of daughter and granddaughter at bedside. In the emergency department, CT head with new heparin hypodensity within gail and left cerebellum suspicious for acute ischemia. Case was discussed with neurologist and patient was deemed not to be a candidate for TNK. Hospital course: She presented with temporary slurred speech and reported weakness and discomfort in her left leg. A CT scan of her head revealed a new, distinct hypodensity within the left portion of the gail and likely in the upper left cerebellum, raising suspicion of evolving acute ischemia. Further evaluation was recommended for definitive assessment. A CT angiography showed no acute occlusion but indicated some cervical spondylosis. An MRI of the brain showed no acute findings or signs of stroke. Her speech returned to normal, and the weakness resolved. A neurologist assessed her and recommended orthostatic blood pressure checks along with a daily dose of 81 mg of aspirin. Orthostatic BP was negative. Regarding cervical spondylosis, although there were no apparent symptoms, outpatient cervical MRI was suggested for further evaluation. Insulin-dependent diabetes mellitus: resume home meds Hypertension: continue home meds Hypothyroidism: continue levothyroxine Gastroesophageal reflux disease: resume med Mood disorder: Continue home mood stabilizers Dispo: Offered short term rehab per PT recommendation, she and daughter have elected to go [facility] with [facility] Time Attestation Discharge Coordination Time (in mins): 45 Quality: Safe Use of Opioids Does Pt have an Active Cancer Diagnosis on the Problem List?: No Quality: Stroke Does the patient have a stroke diagnosis?: No Physical Exam Vital Signs: Vital Signs: Last Vital Signs Temp 96.8 F 09/06/23 07:34 Pulse 70 09/06/23 08:47 Resp 15 09/06/23 07:55 BP 120/63 09/06/23 08:49 Pulse Ox 96 09/06/23 07:34 O2 Del Method Room Air 09/06/23 07:34 BMI result Body Mass Index 41.6 DS: Data Data Completed and Pending Labs on day of discharge: Laboratory Results - last 24 hr 09/05/23 09/05/23 09/05/23 12:16 17:03 21:32 POC Glucose 197 H 248 H 153 H 09/06/23 07:58 POC Glucose 159 H Discharge Plan Discharge Anticipated Discharge Date/Time: 09/07/23 08:56 Patient Disposition: Home Health Service Discharge Diagnosis: TIA Referrals: [facility] [Outside] - 1 Week Nahomy Davies MD [Primary Care Provider] - 1 Week Discharge Medications: Continued levothyroxine [Levoxyl] 75 mcg tablet 75 mcg PO DAILY Qty: 90 3RF albuterol sulfate 90 mcg/actuation HFA aerosol inhaler 1 puff inhalation DAILY PRN (Reason: SOB) ferrous gluconate 324 mg (38 mg iron) tablet 324 mg PO DAILY ascorbic acid (vitamin C) 250 mg Tablet 250 mg PO DAILY losartan-hydrochlorothiazide 50-12.5 mg Tablet 1 tab PO DAILY pregabalin [Lyrica] 100 mg capsule 100 mg PO BID metoprolol succinate 50 mg tablet extended release 24 hr 50 mg PO DAILY (DME) lancets [FreeStyle Lancets] 28 gauge misc See Rx Instructions .ROUTE .MEDSUPPLY Qty: 100 Rx Instructions: As directed (DME) FreeStyle Test Strip See Rx Instructions .ROUTE .MEDSUPPLY Qty: 10 Rx Instructions: As directed Lantus Solostar U-100 Insulin 100 unit/mL (3 mL) insulin pen 25 unit subcut BEDTIME aspirin 81 mg tablet,delayed release (DR/EC) 81 mg PO DAILY simvastatin 40 mg tablet 40 mg PO BEDTIME metformin 500 mg tablet extended release 24 hr 1,000 mg PO BID calcium carbonate-vitamin D3 600 mg(1,500mg) -400 unit tablet 1 tab PO BID cholecalciferol (vitamin D3) 50 mcg (2,000 unit) capsule 50 mcg PO DAILY multivitamin with folic acid 400 mcg tablet 1 tab PO DAILY cyanocobalamin (vitamin B-12) 1,000 mcg tablet 1,000 mcg PO DAILY fluticasone propionate 50 mcg/actuation spray,suspension 1 spray intranasal DAILY fluticasone propionate 110 mcg/actuation HFA aerosol inhaler 2 puff inhalation DAILY melatonin 5 mg tablet 5 mg PO BEDTIME primidone 50 mg tablet 50 mg PO BID (DME) pen needle, diabetic [Unifine Pentips] 31 gauge x 5/16 needle See Rx Instructions .ROUTE .MEDSUPPLY Qty: 1200 Rx Instructions: As directed latanoprost 0.005 % drops 1 drp ophthalmic (eye) DAILY diclofenac sodium 1 % gel 1 ea topical DAILY glucose 4 gram tablet,chewable 4 g PO DAILY PRN (Reason: LOW BLOOD PRESSURE) (DME) blood pressure test kit-large Kit See Rx Instructions .ROUTE BID Qty: 1 Rx Instructions: As directed omeprazole 20 mg capsule,delayed release(DR/EC) 20 mg PO DAILY Discharge Orders: Discharge Order (Routine); Ordered 09/07/23 Ordered By: Ricci Romero Diet: Diabetic diet Activity on Discharge: As tolerated Stand Alone Forms: Patient Portal Discharge page Print Language: Cymraes Other Ambulatory Orders: MR cervical spine wo con (Routine) Timeframe: 1 Week Facility: [facility] - Location: MRI Ordered By: Ricci Romero Care Plan Goals: recovery from weakness, slur speech due to TIA Health Concerns: TIA Cervical spondilosis Plan of Treatment: continue taking all your medication as before you will have therapy at home follow up with your Doctor in a week an MRI of neck will be arranged on outpatient basis to assess for arthritis in the neck Assessment: see above
--- NOTE | 2023-09-06 10:43 | MHC.CM.PN ---
Addendum entered by Heydi Estevez 09/06/23 14:23: Pt is no longer discharging today, per hospitalist. Original Note: Second IMM given 09/05. Pt is medically cleared for discharge home with [facility]. Pt decided against going to acute rehab. Pts granddaughter will transport her home.
--- NOTE | 2023-09-06 11:23 | PM.NEUROCN ---
History of Present Illness Data of Consult Service Date: 09/06/23 Primary Care Provider: Nahomy Kessler MD HPI Reason for consult: ? stroke This is a 78-year-old female with history of insulin-dependent diabetes mellitus, hypertension, mixed hyperlipidemia, mood disorder, asthma, hypothyroidism who presented to the emergency department for evaluation of slurred speech. Patient states that she was going to bed she had difficulty with speech. Also noticed heaviness of her left arm and difficulty moving her left leg. Patient's speech was better in the ER. No sz noted. No fever, chills, chest discomfort, palpitations, abdominal pain, shortness for breath, changes in urinary or bowel habits. No new meds. CTA negative. MRI shows global atrophy and mild microvascular disease but no acute stroke. According to her daughter, her speech is now back to normal. She feels dizzy when she gets up. Review of Systems Review of Systems: All other systems are reviewed and are negative Constitutional: Reports as per HPI and Reports no additional constitutional complaints Eyes: Reports as per HPI and Reports no additional eye complaints Reports system reviewed and no additional complaints, except as documented Cardiovascular: Reports as per HPI and Reports no additional cardiovascular complaints Respiratory: Reports as per HPI and Reports no additional respiratory complaints Gastrointestinal: Reports as per HPI and Reports no additional gastrointestinal complaints Genitourinary: Reports no additional female genitourinary complaints Musculoskeletal: Reports no additional musculoskeletal complaints Skin/Breast: Reports system reviewed and no additional complaints, except as docu Psychiatric: Reports no additional psychiatric complaints Endocrine: Reports no additional endocrine complaints Hematologic/Lymphatic: Reports no additional hematologic/lymphatic complaints Allergic/Immunologic: Reports no additional allergic/immunologic complaints Reports system reviewed and no additional complaints, except as documented and Reports Abnormal speech present Constitutional: Constitutional: Reports no additional constitutional complaints Cardiovascular: Cardiovascular: Reports no additional cardiovascular complaints Respiratory: Respiratory: Reports no additional respiratory complaints Gastrointestinal: Gastrointestinal: Reports no additional gastrointestinal complaints Neurologic: Reports Abnormal speech present and Reports focal weakness PMFSH Past Medical History Medical History Dysphagia Chronic restrictive lung disease Insomnia On beta anish at home History of COVID-19 Asthma Chronic constipation Broken arm CAD (coronary artery disease) HTN (hypertension) Hyperlipidemia Diabetes mellitus Dyspnea Non-toxic multinodular goiter Hypothyroidism Family History Family History Father Throat cancer Heart disease CVD (cardiovascular disease) Mother Stomach cancer Type 2 diabetes mellitus Arthritis of knee Hypertension Surgical History Surgical History History of surgery Hx of elbow surgery History of surgery on arm Hx of cholecystectomy History of partial hysterectomy Hx of cataract surgery History of tubal ligation Hx of tonsillectomy History of carpal tunnel release Hx of colonoscopy Social History Social History Household Members: None Household Members Other:: self Housing: Apartment Do you presently have visiting nurse or other home services: Yes ([employer] M-F 3.5hrs a day) Alcohol intake: never Patient Tobacco Use Status: Never used Tobacco Second Hand Smoke Exposure: No service: No Current occupational status: retired Current occupation: right handed Meds Allergies Allergy/AdvReac Type Severity Reaction Status Date / Time lisinopril Allergy Intermediate itching Verified 09/02/23 00:12 Penicillins Allergy Intermediate rash/hives Verified 09/02/23 00:12 Active Medications: Current Medications Acetaminophen (Acetaminophen 325 Mg Tablet) 650 mg PO Q6H PRN PRN Reason: Pain, Mild (Pain Scale 1-3) Albuterol Sulfate (Albuterol Sulfate 90 Mcg 8 Gm Inhaler) 1 puff INHALE DAILY PRN PRN Reason: Shortness of Breath Ascorbic Acid (Ascorbic Acid 250 Mg Tablet) 250 mg PO DAILY [facility] Last Admin: 09/06/23 08:48 Dose: 250 mg Aspirin (Aspirin Enteric Coated 81 Mg Tablet.) 81 mg PO DAILY [facility] Last Admin: 09/06/23 08:47 Dose: 81 mg Atorvastatin Calcium (Atorvastatin Calcium 40 Mg Tablet) 40 mg PO DAILY [facility] Last Admin: 09/06/23 08:47 Dose: 40 mg Calcium Carbonate/Cholecalciferol (Calcium + Vitamin D 250 Mg Tablet) 500 mg PO BID [facility] Last Admin: 09/06/23 08:49 Dose: 500 mg Cyanocobalamin (Cyanocobalamin (Vitamin B-12) 1,000 Mcg Tablet) 1,000 mcg PO DAILY [facility] Last Admin: 09/06/23 08:48 Dose: 1,000 mcg Enoxaparin Sodium (Enoxaparin Sodium 40 Mg/0.4 Ml Syringe) 40 mg SUBCUT DAILY [facility] Last Admin: 09/06/23 08:46 Dose: 40 mg Ferrous Sulfate (Ferrous Sulfate 324 Mg Tablet.Dr) 324 mg PO DAILY [facility] Last Admin: 09/06/23 08:49 Dose: 324 mg Fluticasone Propionate (Fluticasone Propionate Nasal 16 Gm [place]) 1 spray NOSTRIL-B DAILY [facility] Last Admin: 09/06/23 09:04 Dose: Not Given Fluticasone Propionate (Fluticasone Propionate 100 Mcg Blst.W.Dev) 2 puff INHALE RDAILY [facility] Last Admin: 09/06/23 07:53 Dose: 2 puff Glucose (Glucose Gel 15 Gm Gel..Gram.) 15 gm PO Q15M PRN; Protocol PRN Reason: per Hypoglycemia Standing Ord. Hydrochlorothiazide (Hydrochlorothiazide 12.5 Mg Tablet) 12.5 mg PO DAILY [facility] Last Admin: 09/06/23 08:49 Dose: 12.5 mg Dextrose (D10) 250 mls @ 750 mls/hr IV Q15M PRN; Protocol PRN Reason: per Hypoglycemia Standing Ord. Insulin Glargine (Insulin Glargine,Hum.Rec.Anlog 100 Unit/Ml 10 Ml Vial) 25 unit SUBCUT BEDTIME [facility] Last Admin: 09/05/23 22:09 Dose: 25 unit Insulin Human Lispro (Insulin Lispro 100 Unit/Ml 3 Ml Vial) 0 unit SUBCUT QIDACHS [facility]; Protocol Last Admin: 09/06/23 08:50 Dose: Not Given Latanoprost (Latanoprost 0.005 % Ophth Karmen 2.5 Ml Drops) 1 drop EYE-BOTH BEDTIME [facility] Last Admin: 09/05/23 22:02 Dose: 1 drop Levothyroxine Sodium (Levothyroxine Sodium 75 Mcg Tablet) 75 mcg PO DAILY@0600 [facility] Last Admin: 09/06/23 06:30 Dose: 75 mcg Losartan Potassium (Losartan Potassium 50 Mg Tablet) 50 mg PO DAILY [facility] Last Admin: 09/06/23 08:47 Dose: 50 mg Melatonin (Melatonin 3 Mg Tablet) 6 mg PO BEDTIME PRN PRN Reason: Insomnia Metformin HCl (Metformin Hcl Er 500 Mg Tab.Er.24h) 1,000 mg PO BID [facility] Last Admin: 09/06/23 08:48 Dose: 1,000 mg Metoprolol Succinate (Metoprolol Succinate Er 50 Mg Tab.Er.24h) 50 mg PO DAILY [facility]; Protocol Last Admin: 09/06/23 08:47 Dose: 50 mg Multivitamins/Vitamin C (Multivitamin Tablet) 1 tab PO DAILY [facility] Last Admin: 09/06/23 08:49 Dose: 1 tab Omeprazole (Omeprazole 20 Mg Capsule.Dr) 20 mg PO DAILY@0630 [facility] Last Admin: 09/06/23 06:30 Dose: 20 mg Ondansetron HCl (Ondansetron Hcl 4 Mg/2 Ml Vial) 4 mg IVPUSH Q8H PRN PRN Reason: Nausea and Vomiting Pregabalin (Pregabalin 100 Mg Capsule) 100 mg PO BID [facility] Last Admin: 09/06/23 08:48 Dose: 100 mg Primidone (Primidone 50 Mg Tablet) 50 mg PO BID [facility] Last Admin: 09/06/23 08:49 Dose: 50 mg Vitamin D (Cholecalciferol (Vitamin D3) 25 Mcg Tablet) 50 mcg PO DAILY [facility] Last Admin: 09/06/23 08:48 Dose: 50 mcg Home Medications ?Medication ?Instructions ?Recorded ?Confirmed ?Last Taken ?Type blood sugar diagnostic (FreeStyle #10 ea 02/12/20 09/02/23 Unknown History Test strips) lancets 28 gauge (FreeStyle #100 ea 02/12/20 09/02/23 Unknown History Lancets) metoprolol succinate 50 mg 50 mg PO DAILY 02/12/20 09/02/23 Unknown History tablet,extended release 24 hr pregabalin 100 mg capsule (Lyrica) 100 mg PO BID 02/12/20 09/02/23 Unknown History aspirin 81 mg tablet,delayed 81 mg PO DAILY 03/18/20 09/02/23 Unknown History release calcium carbonate 600 mg-vitamin 1 tab PO BID 03/18/20 09/02/23 Unknown History D3 10 mcg (400 unit) tablet cholecalciferol (vitamin D3) 50 50 mcg PO DAILY 03/18/20 09/02/23 Unknown History mcg (2,000 unit) capsule metformin 500 mg tablet,extended 1,000 mg PO BID 03/18/20 09/02/23 Unknown History release 24 hr simvastatin 40 mg tablet 40 mg PO BEDTIME 03/18/20 09/02/23 Unknown History insulin glargine 100 unit/mL (3 25 unit subcut BEDTIME 05/19/20 09/02/23 09/01/23 22:30 History mL) subcutaneous pen (Lantus Solostar U-100 Insulin) multivitamin with folic acid 400 1 tab PO DAILY 05/19/20 09/02/23 Unknown History mcg tablet cyanocobalamin (vitamin B-12) 1,000 mcg PO DAILY 07/14/20 09/02/23 Unknown History 1,000 mcg tablet fluticasone propionate 110 2 puff inhalation DAILY 07/14/20 09/02/23 Unknown History mcg/actuation HFA aerosol inhaler fluticasone propionate 50 1 spray intranasal DAILY 07/14/20 09/02/23 Unknown History mcg/actuation nasal spray,suspension melatonin 5 mg tablet 5 mg PO BEDTIME 07/14/20 09/02/23 Unknown History pen needle, diabetic 31 gauge x #1,200 ea 06/23/21 09/02/23 Unknown History /16 (Unifine Pentips) primidone 50 mg tablet 50 mg PO BID 06/23/21 09/02/23 Unknown History diclofenac sodium 1 % topical gel 1 ea topical DAILY 11/03/21 09/02/23 Unknown History latanoprost 0.005 % eye drops 1 drp ophthalmic (eye) DAILY 11/03/21 09/02/23 Unknown History glucose 4 gram chewable tablet 4 g PO DAILY PRN LOW BLOOD PRESSURE 08/20/22 09/02/23 Unknown History blood pressure test kit-large #1 ea 07/12/23 09/02/23 Unknown History omeprazole 20 mg capsule,delayed 20 mg PO DAILY 07/12/23 09/02/23 Unknown History release albuterol sulfate 90 mcg/actuation 1 puff inhalation DAILY PRN SOB 09/02/23 09/02/23 Unknown History aerosol inhaler ascorbic acid (vitamin C) 250 mg 250 mg PO DAILY 09/02/23 09/02/23 Unknown History tablet ferrous gluconate 324 mg (38 mg 324 mg PO DAILY 09/02/23 09/02/23 Unknown History iron) tablet losartan 50 mg-hydrochlorothiazide 1 tab PO DAILY 09/02/23 09/02/23 Unknown History 12.5 mg tablet Physical Exam Vital Signs: Vital Signs: Last Vital Signs Temp 96.8 F 09/06/23 11:07 Pulse 68 09/06/23 11:07 Resp 18 09/06/23 11:07 BP 104/52 L 09/06/23 11:07 Pulse Ox 96 09/06/23 11:07 O2 Del Method Room Air 09/06/23 11:07 BMI result Body Mass Index 41.6 Neuro: Other: Alert and oriented. Cranial nerves II through XII are normal. No speech impediment or language dysfunction. She had muscle tone and strength are normal. She has a coarse tremor of her upper extremities, right greater than left, which has been present for decades. According to the daughter it is unchanged. Speech: Abnormal speech present Results Labs 09/02/23 05:26 09/02/23 05:26 Assessment and Plan (1) Weakness: Status: Acute (2) Slurred speech: Status: Acute Possible TIA with transient speech disturbance and some left-sided weakness which has resolved. No acute findings on the MRI. He is complaining of some dizziness for which I would check of orthostatic hypotension. Her tremors are unchanged and stable Recommendation continuing current medications. Aspirin 81 mg a day. Plan 78-year-old female with pertinent history of insulin-dependent diabetes mellitus, hypertension, mixed hyperlipidemia, mood disorder, asthma not on home oxygen, hypothyroidism who presents to the emergency department for evaluation of slurred speech. Slurred speech, transient and weakness, possible TIA. no CVA or MRI either. -continue ASA, BP control, statin, PT/OT recommend STR Insulin-dependent diabetes mellitus: Continue Lantus, and slidding, restart metformin. She has been refusing sliding scale Hypertension: HCTZ, losartan and Metoprolol Hypothyroidism: On levothyroxine Gastroesophageal reflux disease: On PPI DVT prophylaxis: Lovenox Full code. Discussed with family and patient at bedside awaiting rehab bed Procedures Date of Service Date of Service: 09/06/23
[2023-09-06 11:29] LABS: Glucose, Whole Blood 189 mg/dL (60-115)
--- NOTE | 2023-09-06 14:35 | P.PNIM_ITS ---
Subjective Subjective Date of Service: 09/07/23 Interval History: The patient was waiting for rehab bed but he is now saying that felicita wants to go home. She became dizzy after going to the bathroom and having a bowel movment. Physical Exam 2 Vital Signs: Vital Signs: Last Vital Signs Temp 96.8 F 09/06/23 11:07 Pulse 68 09/06/23 11:07 Resp 18 09/06/23 11:07 BP 104/52 L 09/06/23 11:07 Pulse Ox 96 09/06/23 11:07 O2 Del Method Room Air 09/06/23 11:07 BMI result Body Mass Index 41.6 General: AO X 3, no acute distress Resp: CTA bilateral CVS: S1,S2,RRR GI: +BS, NT, no distention Skin: No rash Neuro: motor grossly intact, move all extremities, Psych: appropriate affect Objective Data Active Medications Acetaminophen (Acetaminophen 325 Mg Tablet) 650 mg PO Q6H PRN PRN Reason: Pain, Mild (Pain Scale 1-3) Albuterol Sulfate (Albuterol Sulfate 90 Mcg 8 Gm Inhaler) 1 puff INHALE DAILY PRN PRN Reason: Shortness of Breath Ascorbic Acid (Ascorbic Acid 250 Mg Tablet) 250 mg PO DAILY [facility] Last Admin: 09/06/23 08:48 Dose: 250 mg Documented By: AZUL Aspirin (Aspirin Enteric Coated 81 Mg Tablet.) 81 mg PO DAILY [facility] Last Admin: 09/06/23 08:47 Dose: 81 mg Documented By: AZUL Atorvastatin Calcium (Atorvastatin Calcium 40 Mg Tablet) 40 mg PO DAILY [facility] Last Admin: 09/06/23 08:47 Dose: 40 mg Documented By: AZUL Calcium Carbonate/Cholecalciferol (Calcium + Vitamin D 250 Mg Tablet) 500 mg PO BID [facility] Last Admin: 09/06/23 08:49 Dose: 500 mg Documented By: AZUL Cyanocobalamin (Cyanocobalamin (Vitamin B-12) 1,000 Mcg Tablet) 1,000 mcg PO DAILY [facility] Last Admin: 09/06/23 08:48 Dose: 1,000 mcg Documented By: AZUL Enoxaparin Sodium (Enoxaparin Sodium 40 Mg/0.4 Ml Syringe) 40 mg SUBCUT DAILY [facility] Last Admin: 09/06/23 08:46 Dose: 40 mg Documented By: AZUL Ferrous Sulfate (Ferrous Sulfate 324 Mg Tablet.Dr) 324 mg PO DAILY [facility] Last Admin: 09/06/23 08:49 Dose: 324 mg Documented By: AZUL Fluticasone Propionate (Fluticasone Propionate Nasal 16 Gm Addison) 1 spray NOSTRIL-B DAILY [facility] Last Admin: 09/06/23 09:04 Dose: Not Given Documented By: AZUL Non-Admin Reason: Patient Refused Fluticasone Propionate (Fluticasone Propionate 100 Mcg Blst.W.Dev) 2 puff INHALE RDAILY [facility] Last Admin: 09/06/23 07:53 Dose: 2 puff Documented By: FARHAN Glucose (Glucose Gel 15 Gm Gel..Gram.) 15 gm PO Q15M PRN; Protocol PRN Reason: per Hypoglycemia Standing Ord. Hydrochlorothiazide (Hydrochlorothiazide 12.5 Mg Tablet) 12.5 mg PO DAILY [facility] Last Admin: 09/06/23 08:49 Dose: 12.5 mg Documented By: AZUL Dextrose (D10) 250 mls @ 750 mls/hr IV Q15M PRN; Protocol PRN Reason: per Hypoglycemia Standing Ord. Insulin Glargine (Insulin Glargine,Hum.Rec.Anlog 100 Unit/Ml 10 Ml Vial) 25 unit SUBCUT BEDTIME [facility] Last Admin: 09/05/23 22:09 Dose: 25 unit Documented By: DAYA Insulin Human Lispro (Insulin Lispro 100 Unit/Ml 3 Ml Vial) 0 unit SUBCUT QIDACHS [facility]; Protocol Last Admin: 09/06/23 13:01 Dose: Not Given Documented By: AZUL Non-Admin Reason: poor po intake for lunch Latanoprost (Latanoprost 0.005 % Ophth Karmen 2.5 Ml Drops) 1 drop EYE-BOTH BEDTIME [facility] Last Admin: 09/05/23 22:02 Dose: 1 drop Documented By: DAYA Levothyroxine Sodium (Levothyroxine Sodium 75 Mcg Tablet) 75 mcg PO DAILY@0600 [facility] Last Admin: 09/06/23 06:30 Dose: 75 mcg Documented By: DAYA Losartan Potassium (Losartan Potassium 50 Mg Tablet) 50 mg PO DAILY [facility] Last Admin: 09/06/23 08:47 Dose: 50 mg Documented By: AZUL Melatonin (Melatonin 3 Mg Tablet) 6 mg PO BEDTIME PRN PRN Reason: Insomnia Metformin HCl (Metformin Hcl Er 500 Mg Tab.Er.24h) 1,000 mg PO BID [facility] Last Admin: 09/06/23 08:48 Dose: 1,000 mg Documented By: AZUL Metoprolol Succinate (Metoprolol Succinate Er 50 Mg Tab.Er.24h) 50 mg PO DAILY [facility]; Protocol Last Admin: 09/06/23 08:47 Dose: 50 mg Documented By: AZUL Multivitamins/Vitamin C (Multivitamin Tablet) 1 tab PO DAILY [facility] Last Admin: 09/06/23 08:49 Dose: 1 tab Documented By: AZUL Omeprazole (Omeprazole 20 Mg Capsule.Dr) 20 mg PO DAILY@0630 [facility] Last Admin: 09/06/23 06:30 Dose: 20 mg Documented By: DAYA Ondansetron HCl (Ondansetron Hcl 4 Mg/2 Ml Vial) 4 mg IVPUSH Q8H PRN PRN Reason: Nausea and Vomiting Pregabalin (Pregabalin 100 Mg Capsule) 100 mg PO BID [facility] Last Admin: 09/06/23 08:48 Dose: 100 mg Documented By: AZUL Primidone (Primidone 50 Mg Tablet) 50 mg PO BID [facility] Last Admin: 09/06/23 08:49 Dose: 50 mg Documented By: AZUL Vitamin D (Cholecalciferol (Vitamin D3) 25 Mcg Tablet) 50 mcg PO DAILY [facility] Last Admin: 09/06/23 08:48 Dose: 50 mcg Documented By: AZUL Labs 09/02/23 05:26 09/02/23 05:26 Labs: Laboratory Results - last 24 hr 09/05/23 09/05/23 09/06/23 17:03 21:32 07:58 POC Glucose 248 H 153 H 159 H 09/06/23 11:22 POC Glucose 189 H Assessment and Plan (1) Weakness: Status: Acute (2) Slurred speech: Status: Acute Plan 78-year-old female with pertinent history of insulin-dependent diabetes mellitus, hypertension, mixed hyperlipidemia, mood disorder, asthma not on home oxygen, hypothyroidism who presents to the emergency department for evaluation of slurred speech. Slurred speech, transient and weakness, possible TIA. no CVA or MRI either. -continue ASA, BP control, statin, PT/OT recommend STR initially was agreable but now refusing Cervocal spondylosis--appear chronic and can be further eval with outpatient MRI Insulin-dependent diabetes mellitus: Continue Lantus, and slidding, restart metformin. She has been refusing sliding scale Dizziness following bowel movment likely vasovagal vron bowel movment Hypertension: HCTZ, losartan and Metoprolol Hypothyroidism: On levothyroxine Gastroesophageal reflux disease: On PPI DVT prophylaxis: Lovenox Full code. Discussed with family and patient at bedside awaiting rehab bed Quality Stroke Does the patient have a stroke diagnosis?: No VTE Prior VTE?: No VTE Risk Level:: Medical - moderate - high VTE Device Contraindication: Treatment Not Indicated VTE Drug Contraindication: N/A - Med Ordered
--- NOTE | 2023-09-06 15:04 | PC.NURSE ---
Pt had episode of dizziness after passing a bowel movement. Pt drank prune juice after discussing LBM 08/31. Vital signs checked and BP 128/68, HR 80 bpm. Pt transferred from commode to bed. MD notified and to bedside. MD discussed plan with daughter and need for neurology consult before dc.
[2023-09-06 16:50] LABS: Glucose, Whole Blood 202 mg/dL (60-115)
[2023-09-06] MEDS: Insulin Lispro 100 UNIT/ML 3 ML VIAL SUBCUT (18:12)
[2023-09-06] MEDS: Acetaminophen 325 MG TABLET 650 MG PO (20:21)
[2023-09-06] MEDS: Melatonin 3 MG TABLET 6 MG PO (20:21)
[2023-09-06] MEDS: Insulin Glargine,Hum.rec.anlog 100 UNIT/ML 10 ML VIAL 25 UNIT SUBCUT (20:21)
[2023-09-06] MEDS: Latanoprost 0.005 % Ophth Sol 2.5 ML DROPS 1 DROP EYE-BOTH (20:43)
[2023-09-06 20:49] LABS: Glucose, Whole Blood 190 mg/dL (60-115)
[2023-09-07] VITALS (7 sets, daily range): BP systolic 116–149; BP diastolic 57–72; PULSE 65–89; RESP 18; TEMP 36.3–36.7; O2SAT 93–98
[2023-09-07] MEDS: Levothyroxine Sodium 75 MCG TABLET PO (06:02)
[2023-09-07] MEDS: Omeprazole 20 MG CAPSULE.DR PO (06:02)
[2023-09-07 07:10] LABS: Glucose, Whole Blood 123 mg/dL (60-115)
--- NOTE | 2023-09-07 08:07 | W.MHC.F2F ---
Service Date Service Date: 09/07/23 Encounter Date of encounter: 09/07/23 Reasons for Services Signs and symptoms assessed: wekness, tia Reason for longterm: medication management and teach disease management Reason for physical therapy: home safety and mobility, therapeutic exercises and gait/transfer training Reason for occupational therapy: home safety and mobility and therapeutic exercises Homebound: Leaving the home is medically contraindicated at this time without the asist of a device and/or another person due th the listed conditions above and below. Reason homebound: unsteady gait / fall risk, fall risk related to blood pressure changes and weakness related to hospital stay Homebound supporting statement: homebound due to weakness from hospitalization, tia risk of fall and therefore needs the assitance of another person Certification: Based on the above findings, I certify that this patient is confined to the home and needs intermittent longterm care, physical therapy and/or speech therapy, or continues to need occupational therapy. The patient is under my care, and I have initiated the establishment of the plan of care. The patient will be followed by a physician who will periodically review the plan of care. Time Spent With Patient Time: Total time managing care of this patient today ____ minutes.
[2023-09-07] MEDS: Enoxaparin Sodium 40 MG/0.4 ML SYRINGE SUBCUT (08:13)
[2023-09-07] MEDS: Primidone 50 MG TABLET PO (08:14)
[2023-09-07] MEDS: Cholecalciferol (Vitamin D3) 25 MCG TABLET 50 MCG PO (08:14)
[2023-09-07] MEDS: Pregabalin 100 MG CAPSULE PO (08:14)
[2023-09-07] MEDS: Cyanocobalamin (Vitamin B-12) 1,000 MCG TABLET 1000 MCG PO (08:14)
[2023-09-07] MEDS: Losartan Potassium 50 MG TABLET PO (08:14)
[2023-09-07] MEDS: hydroCHLOROthiazide 12.5 MG TABLET PO (08:14)
[2023-09-07] MEDS: metFORMIN HCl ER 500 MG TAB.ER.24H 1000 MG PO (08:14)
[2023-09-07] MEDS: Atorvastatin Calcium 40 MG TABLET PO (08:15)
[2023-09-07] MEDS: Multivitamin TABLET 1 TAB PO (08:15)
[2023-09-07] MEDS: Aspirin Enteric Coated 81 MG TABLET.DR PO (08:15)
[2023-09-07] MEDS: Ferrous Sulfate 324 MG TABLET.DR PO (08:15)
[2023-09-07] MEDS: Ascorbic Acid 250 MG TABLET PO (08:15)
[2023-09-07] MEDS: Calcium + Vitamin D 250 MG TABLET 500 MG PO (08:15)
[2023-09-07] MEDS: Metoprolol Succinate ER 50 MG TAB.ER.24H PO (08:15)
--- NOTE | 2023-09-07 08:25 | MHC.CM.PN ---
Patient has been medically cleared for dc to home today, with services. A referral was made to [facility], who has been made aware of today's dc. Last Imm addressed yesterday.
[2023-09-07] MEDS: Fluticasone Propionate 100 MCG BLST.W.DEV 2 PUFF INHALE (08:49)
== END 2023-09-07 10:34 | disposition home health service (06) | DRG 69 ==
LOC: HO.ED 09-02 01:48 → HO.EDOVER 09-02 02:23 → HO.IMC 09-03 06:10
PROVIDERS: Admitting Provider Student in an Organized Health Care Education/Training Program; Emergency Provider Emergency Medicine; PCP Student in an Organized Health Care Education/Training Program; Visit Provider Internal Medicine
DX: G45.9 Transient cerebral ischemic attack, unspecified (principal); R47.81 Slurred speech; I25.10 Atherosclerotic heart disease of native coronary artery without angina pectoris; E03.9 Hypothyroidism, unspecified; M47.812 Spondylosis without myelopathy or radiculopathy, cervical region; K21.9 Gastro-esophageal reflux disease without esophagitis; F39 Unspecified mood [affective] disorder; I10 Essential (primary) hypertension; E78.2 Mixed hyperlipidemia; Z79.82 Long term (current) use of aspirin; Z79.51 Long term (current) use of inhaled steroids; Z79.84 Long term (current) use of oral hypoglycemic drugs; Z79.899 Other long term (current) drug therapy
CPT/HCPCS: 36415; 70450; 70496; 70498; 70551; 71045; 80048; 80061; 82550; 82947; 83036; 84484; 85025; 85610; 85730; 92526; 92610; 93005; 93306; 94640; 97162; 97167; 97530; 99285; J1650; Q9957; Q9967

== ENCOUNTER 2023-09-02 02:18 | Outpatient (BNV) | payer OTHER, SELFPAY | END 2023-09-02 07:00 | PROVIDERS: Admitting Provider Student in an Organized Health Care Education/Training Program; Emergency Provider Emergency Medicine; PCP Student in an Organized Health Care Education/Training Program; Visit Provider Internal Medicine Cardiovascular Disease | DX: R94.31 Abnormal electrocardiogram [ECG] [EKG] (principal); I63.9 Cerebral infarction, unspecified | CPT/HCPCS: 93010; 93306 ==

== ENCOUNTER → 2023-09-02 02:18 | Outpatient (BNV) | payer OTHER, SELFPAY | PROVIDERS: Admitting Provider Student in an Organized Health Care Education/Training Program; Emergency Provider Emergency Medicine; PCP Student in an Organized Health Care Education/Training Program; Visit Provider Psychiatry & Neurology Neurology | DX: G81.94 Hemiplegia, unspecified affecting left nondominant side (principal); R47.81 Slurred speech | CPT/HCPCS: 99222 ==

== ENCOUNTER → 2023-09-02 02:18 | Outpatient (BNV) | payer OTHER, SELFPAY | PROVIDERS: Admitting Provider Student in an Organized Health Care Education/Training Program; Emergency Provider Emergency Medicine; PCP Student in an Organized Health Care Education/Training Program; Visit Provider Student in an Organized Health Care Education/Training Program | DX: R53.1 Weakness (principal); R47.81 Slurred speech | CPT/HCPCS: 99222; 99232; 99239; 99499; G0180 ==

== ENCOUNTER → 2023-09-30 11:02 | Outpatient (BNVA) | payer OTHER, SELFPAY | PROVIDERS: PCP Student in an Organized Health Care Education/Training Program; Visit Provider Nurse Practitioner Family ==

== ENCOUNTER 2023-10-31 08:33 | Outpatient (AMB) | payer OTHER, SELFPAY ==
[2023-10-31 08:36] VITALS: BP 108/52; PULSE 61; BMI 33.4
--- NOTE | 2023-10-31 08:36 | A.OFFVIS_ITS ---
Vital Signs 10/31/23 08:36 Height 5 ft 5 in Weight 200 lb 9.93 oz BMI 33.4 BP 108/52 L Blood Pressure Location Lt brachial Position Sitting Pulse 61 Pulse Source Monitor Intake Visit Reasons: fu [facility] dc for stroke/clear colonoscopy? 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 Present Allergies lisinopril Allergy (Intermediate, Verified 10/31/23 08:38) itching Penicillins Allergy (Intermediate, Verified 10/31/23 08:38) rash/hives Medication List - Last Reconciled 10/31/23 by ELMER Longoria albuterol sulfate 90 mcg/actuation 1 puff inhalation DAILY PRN ascorbic acid (vitamin C) 250 mg PO DAILY aspirin 81 mg PO DAILY bisacodyl (Dulcolax (bisacodyl)) 20 mg (4 x 5 mg) PO ONCE 1 day blood pressure test kit-large As directed blood sugar diagnostic (FreeStyle Test strips) As directed calcium carbonate-vitamin D3 600 mg-10 mcg (400 unit) 1 tab PO BID cholecalciferol (vitamin D3) 50 mcg PO DAILY cyanocobalamin (vitamin B-12) 1,000 mcg PO DAILY diclofenac sodium 1% 1 ea topical DAILY ferrous gluconate 324 mg PO DAILY flash glucose sensor (FreeStyle Anthony 2 Sensor kit) As directed fluticasone propionate 110 mcg/actuation 2 puffs inhalation DAILY fluticasone propionate 50 mcg/actuation 1 spray intranasal DAILY glucose 4 grams PO DAILY PRN insulin glargine (Lantus Solostar U-100 Insulin) 25 units subcut BEDTIME lancets (FreeStyle Lancets) As directed latanoprost 0.005% 1 drp ophthalmic (eye) DAILY Levoxyl (levothyroxine) 75 mcg PO DAILY NS losartan-hydrochlorothiazide 50-12.5 mg 1 tab PO DAILY melatonin 5 mg PO BEDTIME metformin ER 1,000 mg PO BID metoprolol succinate ER 50 mg PO DAILY multivitamin with folic acid 400 mcg 1 tab PO DAILY omeprazole 20 mg PO DAILY pen needle, diabetic (Unifine Pentips) As directed polyethylene glycol 3350 (Miralax) 238 grams PO ONCE pregabalin (Lyrica) 100 mg PO BID primidone 50 mg PO BID simvastatin 40 mg PO BEDTIME HPI HPI fu [facility] dc for stroke/clear colonoscopy?: Details: Arlette is a 78-year-old female with past medical history of hypertension, hyperlipidemia, diabetes, presume CAD, abnormal nuclear stress test who was recently admitted to [facility] with dysarthria and left-sided heaviness. She was suspected to have possible TIA, CVA was ruled out. Her symptoms did resolve. She now presents for follow-up and colonoscopy clearance. Today she reports that she has been doing better since her hospital discharge. Her speech is normal and she has had no reoccurrence of garbled speech. She tells me that her right arm has had some heaviness. Left side is normal. She uses a cane for balance. She is mostly sedentary. She has no chest discomfort at rest or with exertion. No shortness of breath, PND, orthopnea or edema. No lightheadedness, presyncope, syncope, falls. Taking all meds as directed. Her VP SALES is present. [facility] Medical History Dysphagia Chronic restrictive lung disease Insomnia On beta anish at home History of COVID-19 Asthma Chronic constipation Broken arm CAD (coronary artery disease) HTN (hypertension) Hyperlipidemia Diabetes mellitus Dyspnea Non-toxic multinodular goiter Hypothyroidism Surgical History History of surgery Hx of elbow surgery History of surgery on arm Hx of cholecystectomy History of partial hysterectomy Hx of cataract surgery History of tubal ligation Hx of tonsillectomy History of carpal tunnel release Hx of colonoscopy Family History Father Throat cancer Heart disease CVD (cardiovascular disease) Mother Stomach cancer Type 2 diabetes mellitus Arthritis of knee Hypertension Social History Household Members: None Household Members Other:: self Housing: Apartment Do you presently have visiting nurse or other home services: Yes ([employer] M-F 3.5hrs a day) Alcohol intake: never Patient Tobacco Use Status: Never used Tobacco Second Hand Smoke Exposure: No service: No Current occupational status: retired Current occupation: right handed Review of Systems Const All systems reviewed & are unremarkable except as noted in HPI and below ENT Denies dizziness Card Denies chest pain, Denies chest pain at rest, Denies chest pain with activity, Denies rapid heart rate, Denies pedal edema, Denies edema, Denies leg edema, Denies lightheadedness, Denies palpitations, Denies dyspnea, Denies dyspnea on exertion and Denies orthopnea Resp Denies cough, Denies dyspnea and Denies dyspnea on exertion GI Denies hematochezia and Denies change in stool character Musc Details: right arm with some mild heaviness Denies abnormal gait, Denies limited range of motion, Denies muscle cramps, Denies muscle weakness, Denies numbness, Denies radiating pain into limb, Denies stiffness and Denies tingling Neuro Denies abnormal gait, Denies dizziness, Denies numbness and Denies tingling Endo Denies palpitations Physical Exam Vital Signs: Last Vital Signs Pulse 61 10/31/23 08:36 BP 108/52 L 10/31/23 08:36 BMI result Body Mass Index 33.4 Const General: cooperative, healthy appearing, comfortable and no acute distress Orientation/consciousness: patient oriented x3 Neck Neck: Yes normal visual inspection and Yes no JVD Resp Effort & Inspection: normal respiratory effort Auscultation: clear to auscultation bilaterally, no crackles, no rales, no rhonchi and no wheezes Cardio Jugular venous distension: no JVD Rate: regular rate Rhythm: regular rhythm Heart sounds: S1 normal heart sound present, S2 normal heart sound present, no murmurs and no rubs Neuro General: patient oriented x3 Extrem Other: moves all extremities General: Yes normal to inspection, No no pedal edema and No calf tenderness Psych Other: speech clear and appropriate Appearance: grossly normal Mental Status: mental status grossly normal Speech and movement: Normal speech and movement present Office Procedures EKG Details: Today - read by me, sinus rhythm with sinus arrhythmia, nonspecific T-wave abnormality, QTC 477 milliseconds, rate 61 [id number], Complete Assessment & Plan Assessment & Plan (1) Weakness of left side of body: Code(s): R53.1 - Weakness Category: Medical Plan: Recent [facility] admission for garbled speech and reported heaviness on the left side of her body with sudden onset. A CT scan of the head did show a hypodensity in the gail and left cerebellum suspicious for ischemia. A CTA of the head showed no acute occlusions or stenosis. MRI of the brain showed no acute abnormalities. Neurology note reviewed and states possible TIA. Her clinical symptoms did resolve. Today she reports having some mild right arm heaviness. At the time of hospitalization she was reporting left arm heaviness. Unclear if there is documentation discrepancy here. On exam she has no significant findings. She uses a cane just for balance. She denies any heart palpitations. EKG done today is showing sinus rhythm with sinus arrhythmia, rate 61. With suspicion for TIA will check a Holter monitor to ensure there is no atrial fibrillation. She continues on daily aspirin. Blood pressure is well controlled at this time. She is on statin therapy. Continue to follow with neurology as needed. Cardiology office visit in 3-4 months, sooner if needed. (2) Garbled speech: Code(s): R47.89 - Other speech disturbances Category: Medical Plan: As above (3) Hospital discharge follow-up: Code(s): Z09 - Encounter for follow-up examination after completed treatment for conditions other than malignant neoplasm Category: Medical Plan: As above (4) CAD (coronary artery disease): Comment: circumflex territory ischemia on nuclear stress testing, no invasive strategy due to lack of symptoms Code(s): I25.10 - Atherosclerotic heart disease of [place] coronary artery without angina pectoris Category: Medical Plan: Presumed to have CAD based on nuclear stress test done in the past showing circumflex territory ischemia. She did have a repeat nuclear stress test on 08/10/2021 showing a fixed distal inferior lateral defect, question prior infarct, [id number] ischemia in the distal anterior septal wall. She has not been reporting any anginal symptoms. EKG done today shows no findings suggesting ischemia. She has multiple cardiac risk factors including hypertension, hyperlipidemia, diabetes. She needs ongoing risk factor modification. Reviewed this with her and she states understanding. Continue aspirin, simvastatin and metoprolol. Signs and symptoms of angina reviewed with her. Emergency care if ever needed for symptoms. (5) HTN (hypertension): Code(s): I10 - Essential (primary) hypertension Category: Medical Plan: Well controlled at this time. No med changes made. Continue metoprolol and losartan/hydrochlorothiazide. Labs done on 09/02/2023 showed potassium 3.8, creatinine 0.6. (6) Hyperlipidemia: Code(s): E78.5 - Hyperlipidemia, unspecified Category: Medical Plan: [place] LDL goal less than 70 in patient with diabetes. Labs done on 09/02/2023 showed LDL 86. Will change her simvastatin 40 mg daily over to atorvastatin 40 mg daily. Plan to order fasting lipid profile at next visit. Plan Time spent on chart review, documentation, interview and assessment Orders: Orders ECG 14 day holter monitor Today G45.9 - Transient cerebral ischemic attack, unspecified, R00.2 - Palpitations, R13.10 - Dysphagia, unspecified, R53.1 - Weakness Medications: New atorvastatin Replaces Simvastatin 40 mg PO BEDTIME 90 days 90 tabs 3RF Coding Level of Care Code Est Pt Level 4 (41463) Diagnoses Weakness of left side of body R53.1 Garbled speech R47.89 Hospital discharge follow-up Z09 CAD (coronary artery disease) I25.10 HTN (hypertension) I10 Hyperlipidemia E78.5 CPT Codes EKG - CPT: [id number], Complete ([id number]) Time Spent (min) 28
== END 2023-10-31 09:18 | disposition home or self-care (01) ==
PROVIDERS: PCP Student in an Organized Health Care Education/Training Program; Visit Provider Nurse Practitioner Family
DX: R53.1 Weakness (principal); R47.89 Other speech disturbances; Z09 Encounter for follow-up examination after completed treatment for conditions other than malignant neoplasm; I25.10 Atherosclerotic heart disease of native coronary artery without angina pectoris; I10 Essential (primary) hypertension; E78.5 Hyperlipidemia, unspecified
CPT/HCPCS: 93010; 99214

== ENCOUNTER → 2023-10-31 08:33 | Outpatient (BNVA) | payer OTHER, SELFPAY | PROVIDERS: PCP Student in an Organized Health Care Education/Training Program; Visit Provider Nurse Practitioner Family | DX: I10 Essential (primary) hypertension (principal); I25.10 Atherosclerotic heart disease of native coronary artery without angina pectoris; E78.5 Hyperlipidemia, unspecified; R47.89 Other speech disturbances; R00.2 Palpitations; R13.10 Dysphagia, unspecified; R53.1 Weakness; Z86.73 Personal history of transient ischemic attack (TIA), and cerebral infarction without residual deficits | CPT/HCPCS: 93005; 99212 ==

== ENCOUNTER → 2023-11-10 11:24 | Outpatient (REF) | payer OTHER, SELFPAY ==
--- NOTE | 2023-11-10 11:30 | HM_ITS ---
Conclusion: 1. Patient was monitored for total period of 9 days 2. Baseline was normal sinus rhythm with average heart of 63 beats per minute 3. No significant pauses or arrhythmias noted 4. Patient marked the counter 5 times with no associated symptoms reported in diary, correlating with normal sinus rhythm MTDD
== END ==
LOC: HO.CARD 11:24
PROVIDERS: PCP Student in an Organized Health Care Education/Training Program; Visit Provider Nurse Practitioner Family
DX: R00.2 Palpitations (principal); G45.9 Transient cerebral ischemic attack, unspecified; R13.10 Dysphagia, unspecified; R53.1 Weakness
CPT/HCPCS: 93246

== ENCOUNTER → 2023-11-10 11:30 | Outpatient (BNV) | payer OTHER, SELFPAY | PROVIDERS: PCP Student in an Organized Health Care Education/Training Program; Visit Provider Internal Medicine Cardiovascular Disease | DX: R00.1 Bradycardia, unspecified (principal) | CPT/HCPCS: 93248 ==

== ENCOUNTER 2023-11-14 09:55 | Outpatient (REF) | payer OTHER, SELFPAY ==
[2023-11-14 11:20] LABS: MANUAL DIFF FLAG NO
[2023-11-14 11:31] LABS: Basophils Absolute Auto 0.1 X10*3/uL (0.0-0.2); Basophils Percent Auto 0.8 % (0-2); Eosinophils Absolute Auto 0.2 X10*3/uL (0.0-0.4); Eosinophils Percent Auto 3.5 % (0-4); Hematocrit 34.9 % (37.0-47.0); Hemoglobin 11.6 g/dl (12.0-16.0); Imm Gran Abs Auto 0.01 X10*3/uL (0.00-0.03); Imm Gran Pct Auto 0.2 % (0.0-0.4); Lymphocytes Absolute Auto 3.5 X10*3/uL (1.2-4.9); Lymphocytes Percent Auto 56.2 % (20-40); Mean Corpuscular HGB Conc 33.2 g/dl (31.0-35.0); Mean Corpuscular Hemoglobin 28.4 pg (27.0-33.0); Mean Corpuscular Volume 85.5 fL (80.0-98.0); Mean Platelet Volume 9.9 fL (9.4-12.3); Monocytes Absolute Auto 0.6 X10*3/uL (0.1-1.2); Monocytes Percent Auto 9.9 % (2-11); Neutrophils Absolute Auto 1.9 x10*3/uL (2.0-8.3); Neutrophils Percent Auto 29.4 % (45-73); Platelet Count 214 X10*3/uL (160-400); Red Blood Count 4.08 X10*6/uL (4.20-5.50); Red Cell Distribution Width 15.9 % (11.0-16.0); White Blood Count 6.3 X10*3/uL (4.8-10.8)
[2023-11-14 11:49] LABS: Estimated Average Glucose 180 mg/dL; Hemoglobin A1c % 7.9 % (<6.0)
[2023-11-14 12:08] LABS: Alanine Aminotransferase 31 U/L (0-31); Albumin Level 3.8 g/dL (3.5-5.0); Alkaline Phosphatase 118 U/L (39-117); Anion Gap 11 (12-20); Aspartate Amino Transferase 24 U/L (5-31); Bilirubin Total 0.6 mg/dL (0.0-1.0); Blood Urea Nitrogen 8 mg/dL (9-16); Carbon Dioxide 28 mmol/L (22-29); Chloride 108 mmol/L (96-108); Cholesterol 135 mg/dL (<200); Estimated Glomerular Filt Rate > 60; Glucose Random 193 mg/dL (60-115); HDL Cholesterol 37 mg/dL (>40); Iron 75 mcg/dL (30-160); LDL Cholesterol Calculated 40 mg/dL (<100); Percent Iron Saturation 26 % (15-50); Potassium 4.6 mmol/L (3.3-5.1); Sodium 142 mmol/L (135-145); Total Iron Binding Capacity 286 mcg/dL (228-428); Total Protein 6.9 g/dL (6.5-8.0); Triglycerides 293 mg/dL (<150); Unsaturated Iron Binding 211 ug/dL
[2023-11-14 12:12] LABS: Ferritin 8 ng/mL (10-250); Thyroid Stimulating Hormone 1.13 uIU/mL (0.32-4.0)
[2023-11-14 12:20] LABS: Folate 14.2 ng/mL (> or = 4.0); Vitamin B12 984 pg/mL (200-900)
== END 2023-11-14 09:56 | disposition home or self-care (01) ==
LOC: HO.HHCL 09:55
PROVIDERS: Visit Provider Student in an Organized Health Care Education/Training Program
DX: E04.2 Nontoxic multinodular goiter (principal); D64.9 Anemia, unspecified; E11.69 Type 2 diabetes mellitus with other specified complication; Z79.4 Long term (current) use of insulin
CPT/HCPCS: 36415; 80053; 80061; 82607; 82728; 82746; 83036; 83540; 84439; 84443; 85025

== ENCOUNTER 2023-11-22 17:11 | Outpatient (REF) | payer OTHER, SELFPAY ==
[2023-11-22 17:58] LABS: Creatinine Urine 66.52 mg/dL; Microalbum/Creatinine Ratio Ur 34.5 ug/mg cr (<30)
== END 2023-11-22 17:12 | disposition home or self-care (01) ==
LOC: HO.HHCLNP 17:11
PROVIDERS: Visit Provider Student in an Organized Health Care Education/Training Program
DX: E11.69 Type 2 diabetes mellitus with other specified complication (principal); Z79.4 Long term (current) use of insulin
CPT/HCPCS: 82043; 82570

== ENCOUNTER 2023-12-05 10:11 | Outpatient (REF) | payer OTHER, SELFPAY ==
--- NOTE | ~2023-12-05 | MR_ITS ---
EXAMINATION: MR CERVICAL SPINE WITHOUT CONTRAST CLINICAL INFORMATION: Cervical myelopathy. COMPARISON: [facility] Head and Neck from 09/02/2023. TECHNIQUE: MRI of the cervical spine was obtained using routine sequences without contrast. FINDINGS: Congenital fusion of C2-C3. Mild degenerative anterolisthesis of C6 on C7. Otherwise, normal anatomic alignment. Moderate degenerative disc disease from C3-C7. Associated mixed Modic type discogenic endplate changes including Modic type I discogenic edema at C3-C4 and from C5-C7. Mild marrow edema within the posterior elements of C6-C7 consistent with degenerative stress reaction. No additional suspicious marrow edema. The vertebral body heights are largely maintained. No demonstrated spinal cord signal abnormalities. Limited evaluation of the soft tissues of the neck without demonstrated abnormalities. The flow voids of the major cervical vessels are maintained. Normal appearance of the cervicomedullary junction and visualized posterior fossa. SPINAL LEVELS: C2-C3: Congenitally fused at this level. There is no neural foraminal stenosis. There is no spinal canal stenosis. C3-C4: Moderate disc-osteophyte complex. There is moderate left and mild right uncovertebral joint arthropathy. There is mild bilateral facet joint arthropathy. There is mild left and right neural foraminal stenosis. There is mild spinal canal stenosis. C4-C5: Moderate disc-osteophyte complex. There is mild bilateral uncovertebral joint arthropathy. There is moderate bilateral facet joint arthropathy. There is moderate left and mild right neural foraminal stenosis. There is mild spinal canal stenosis. C5-C6: Moderate disc-osteophyte complex. There is moderate right and mild left uncovertebral joint arthropathy. There is moderate bilateral facet joint arthropathy. There is moderate bilateral neural foraminal stenosis. There is mild spinal canal stenosis. C6-C7: Mild disc-osteophyte complex. There is moderate right and mild left uncovertebral joint arthropathy. There is moderate bilateral facet joint arthropathy. There is moderate right and mild left neural foraminal stenosis. There is no spinal canal stenosis. C7-T1: Mild disc-osteophyte complex. There is mild bilateral uncovertebral joint arthropathy. There is mild bilateral facet joint arthropathy. There is no neural foraminal stenosis. There is no spinal canal stenosis. 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 Most notably, there are mild spinal canal stenoses from C3-C6. Moderate neural foraminal stenoses from C4-C7. Electronically signed by: Jaguar Holloway DO 12/22/2023 06:33 PM EDT
== END 2023-12-05 10:12 | disposition home or self-care (01) ==
LOC: HO.MRI 10:11
PROVIDERS: PCP Student in an Organized Health Care Education/Training Program; Visit Provider Student in an Organized Health Care Education/Training Program
DX: G95.9 Disease of spinal cord, unspecified (principal)
CPT/HCPCS: 72141

== ENCOUNTER 2023-12-09 09:11 | Day surgery (SDC) | payer OTHER, SELFPAY ==
--- NOTE | 2023-12-08 10:59 | P.CONAN_ITS ---
Documented by User: Noelle Rodriguez NP 12/08/23 11:04 HPI - Anesthesia Eval Consult details Narrative: 78yo F for Upper Endoscopy and Colonoscopy [facility] [place] admit 08/2023 with TIA Optimized per Neuro Cardiac pending (normal holter) [facility] Active Problems Active Problems: All Active Problems Garbled speech (Acute) Hospital discharge follow-up (Acute) Weakness of left side of body (Acute) History of carpal tunnel surgery of right wrist (Acute) Cubital tunnel syndrome on left (Acute) Carpal tunnel syndrome of left wrist (Acute) Trigger finger, right middle finger (Acute) Cubital tunnel syndrome on right (Acute) Right carpal tunnel syndrome (Acute) Left knee pain (Acute) Lumbar spondylosis (Acute) Lumbar radiculopathy (Acute) Chronic restrictive lung disease (Acute) Insomnia (Acute) Neuropathy of right lower extremity (Acute) COVID-19 (Acute) Closed fracture of left olecranon process (Acute) Closed fracture of olecranon process of ulna with routine healing (Acute) Abnormality of lung on CXR (Acute) Encounter for screening colonoscopy (Acute) Osteoarthritis of knees, bilateral (Acute) Lumbar back pain with radiculopathy affecting right lower extremity (Acute) Retained orthopedic hardware (Acute) Preoperative cardiovascular examination (Acute) Asthma (Acute) Chronic constipation (Acute) CAD (coronary artery disease) (Acute) HTN (hypertension) (Acute) Hyperlipidemia (Acute) Diabetes mellitus (Acute) Dyspnea (Acute) Non-toxic multinodular goiter (Acute) Hypothyroidism (Acute) Past Medical History Medical History (Updated 10/31/23 @ 11:11 by Sherry Mckeon NP-Wendie) Chronic restrictive lung disease Insomnia On beta anish at home History of COVID-19 Asthma Chronic constipation Broken arm CAD (coronary artery disease) HTN (hypertension) Hyperlipidemia Diabetes mellitus Dyspnea Dysphagia Non-toxic multinodular goiter Hypothyroidism Family History Family History Father Throat cancer Heart disease CVD (cardiovascular disease) Mother Stomach cancer Type 2 diabetes mellitus Arthritis of knee Hypertension Family history of problems with anesthesia: No Surgical History Surgical History (Updated 12/09/23 @ 09:59 by Jovita Fitzgerald RN) H/O thyroidectomy History of surgery Hx of elbow surgery History of surgery on arm Hx of cholecystectomy History of partial hysterectomy Hx of cataract surgery History of tubal ligation Hx of tonsillectomy History of carpal tunnel release Hx of colonoscopy History of Problems with Anesthesia: No Social History Social History Household Members: None Household Members Other:: self Housing: Apartment Do you presently have visiting nurse or other home services: 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) Alcohol intake: never Patient Tobacco Use Status: Never used Tobacco Second Hand Smoke Exposure: No Advance Directives: No Advance Directives Information Provided: Yes service: No Current occupational status: retired Current occupation: right handed Meds Allergies Allergy/AdvReac Type Severity Reaction Status Date / Time lisinopril Allergy Intermediate itching Verified 12/09/23 09:58 Penicillins Allergy Intermediate rash/hives Verified 12/09/23 09:58 Home Medications ?Medication ?Instructions ?Recorded ?Confirmed ?Last Taken ?Type blood sugar diagnostic (FreeStyle #10 ea 02/12/20 09/02/23 Unknown History Test strips) lancets 28 gauge (FreeStyle #100 ea 02/12/20 09/02/23 Unknown History Lancets) metoprolol succinate 50 mg 50 mg PO DAILY 02/12/20 10/31/23 Unknown History tablet,extended release 24 hr pregabalin 100 mg capsule (Lyrica) 100 mg PO BID 02/12/20 10/31/23 Unknown History aspirin 81 mg tablet,delayed 81 mg PO DAILY 03/18/20 10/31/23 Unknown History release calcium carbonate 600 mg-vitamin 1 tab PO BID 03/18/20 10/31/23 Unknown History D3 10 mcg (400 unit) tablet cholecalciferol (vitamin D3) 50 50 mcg PO DAILY 03/18/20 10/31/23 Unknown History mcg (2,000 unit) capsule metformin 500 mg tablet,extended 1,000 mg PO BID 03/18/20 10/31/23 Unknown History release 24 hr insulin glargine 100 unit/mL (3 25 unit subcut BEDTIME 05/19/20 10/31/23 09/01/23 22:30 History mL) subcutaneous pen (Lantus Solostar U-100 Insulin) multivitamin with folic acid 400 1 tab PO DAILY 05/19/20 10/31/23 Unknown History mcg tablet cyanocobalamin (vitamin B-12) 1,000 mcg PO DAILY 07/14/20 10/31/23 Unknown History 1,000 mcg tablet fluticasone propionate 110 2 puff inhalation DAILY 07/14/20 10/31/23 Unknown History mcg/actuation HFA aerosol inhaler fluticasone propionate 50 1 spray intranasal DAILY 07/14/20 10/31/23 Unknown History mcg/actuation nasal spray,suspension melatonin 5 mg tablet 5 mg PO BEDTIME 07/14/20 10/31/23 Unknown History pen needle, diabetic 31 gauge x #1,200 ea 06/23/21 09/02/23 Unknown History 5/16 (Unifine Pentips) primidone 50 mg tablet 50 mg PO BID 06/23/21 10/31/23 Unknown History diclofenac sodium 1 % topical gel 1 ea topical DAILY 11/03/21 10/31/23 Unknown History latanoprost 0.005 % eye drops 1 drp ophthalmic (eye) DAILY 11/03/21 10/31/23 Unknown History glucose 4 gram chewable tablet 4 g PO DAILY PRN LOW BLOOD PRESSURE 08/20/22 0 10/31/23 Unknown History blood pressure test kit-large #1 ea 07/12/23 09/02/23 Unknown History omeprazole 20 mg capsule,delayed 20 mg PO DAILY 07/12/23 10/31/23 Unknown History release albuterol sulfate 90 mcg/actuation 1 puff inhalation DAILY PRN SOB 09/02/23 10/31/23 Unknown History aerosol inhaler ascorbic acid (vitamin C) 250 mg 250 mg PO DAILY 09/02/23 10/31/23 Unknown Hist ory tablet ferrous gluconate 324 mg (38 mg 324 mg PO DAILY 09/02/23 10/31/23 Unknown History iron) tablet losartan 50 mg-hydrochlorothiazide 1 tab PO DAILY 09/02/23 10/31/23 Unknown Hi story 12.5 mg tablet flash glucose sensor (FreeStyle #1 ea 09/30/23 Unknown History Anthony 2 Sensor kit) Exam Pertinent Lab Results Pertinent Lab Results: Laboratory Tests 11/14/23 10:00 WBC 6.3 Hgb 11.6 L Hct 34.9 L Plt Count 214 Sodium 142 Potassium 4.6 D Chloride 108 Carbon Dioxide 28 BUN 8 L Creatinine 0.77 Narrative Narrative: EKG 10/2023 sinus rhythm with sinus arrhythmia, nonspecific T-wave abnormality, QTC 477 milliseconds, rate 61 Holter 2023 1. Patient was monitored for total period of 9 days 2. Baseline was normal sinus rhythm with average heart of 63 beats per minute 3. No significant pauses or arrhythmias noted 4. Patient marked the counter 5 times with no associated symptoms reported in diary, correlating with normal sinus rhythm ECHO 08/2023 Conclusions: - Mildly increased left ventricular cavity size. There is normal left ventricular wall thickness. The left ventricular systolic function is low normal. The visually estimated ejection fraction is between 50-55%. - E/E prime ratio is between 8 and 15 consistent with indeterminate filling pressures. - Normal right ventricular cavity size and systolic function. Assessment and Plan Assessment Anesthesia Assessment: Chart Reviewed Final Anesthetic Review Family History of Problems with Anesthesia: No History of Problems with Anesthesia: No Documented by User: Sonia Guzman MD 12/09/23 10:10 [facility] Past Medical History Medical History (Updated 10/31/23 @ 11:11 by Sherry Mckeon NP-C) Chronic restrictive lung disease Insomnia On beta anish at home History of COVID-19 Asthma Chronic constipation Broken arm CAD (coronary artery disease) HTN (hypertension) Hyperlipidemia Diabetes mellitus Dyspnea Dysphagia Non-toxic multinodular goiter Hypothyroidism Family History Family History Father Throat cancer Heart disease CVD (cardiovascular disease) Mother Stomach cancer Type 2 diabetes mellitus Arthritis of knee Hypertension Surgical History Surgical History (Updated 12/09/23 @ 09:59 by Jovita Fitzgerald RN) H/O thyroidectomy History of surgery Hx of elbow surgery History of surgery on arm Hx of cholecystectomy History of partial hysterectomy Hx of cataract surgery History of tubal ligation Hx of tonsillectomy History of carpal tunnel release Hx of colonoscopy Social History Social History Household Members: None Household Members Other:: self Housing: Apartment Do you presently have visiting nurse or other home services: 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) Alcohol intake: never Patient Tobacco Use Status: Never used Tobacco Second Hand Smoke Exposure: No Advance Directives: No Advance Directives Information Provided: Yes service: No Current occupational status: retired Current occupation: right handed Meds Allergies Allergy/AdvReac Type Severity Reaction Status Date / Time lisinopril Allergy Intermediate itching Verified 12/09/23 09:58 Penicillins Allergy Intermediate rash/hives Verified 12/09/23 09:58 Home Medications ?Medication ?Instructions ?Recorded ?Confirmed ?Last Taken ?Type blood sugar diagnostic (FreeStyle #10 ea 02/12/20 09/02/23 Unknown History Test strips) lancets 28 gauge (FreeStyle #100 ea 02/12/20 09/02/23 Unknown History Lancets) metoprolol succinate 50 mg 50 mg PO DAILY 02/12/20 10/31/23 Unknown History tablet,extended release 24 hr pregabalin 100 mg capsule (Lyrica) 100 mg PO BID 02/12/20 10/31/23 Unknown History aspirin 81 mg tablet,delayed 81 mg PO DAILY 03/18/20 10/31/23 Unknown History release calcium carbonate 600 mg-vitamin 1 tab PO BID 03/18/20 10/31/23 Unknown History D3 10 mcg (400 unit) tablet cholecalciferol (vitamin D3) 50 50 mcg PO DAILY 03/18/20 10/31/23 Unknown History mcg (2,000 unit) capsule metformin 500 mg tablet,extended 1,000 mg PO BID 03/18/20 10/31/23 Unknown History release 24 hr insulin glargine 100 unit/mL (3 25 unit subcut BEDTIME 05/19/20 10/31/23 09/01/23 22:30 History mL) subcutaneous pen (Lantus Solostar U-100 Insulin) multivitamin with folic acid 400 1 tab PO DAILY 05/19/20 10/31/23 Unknown History mcg tablet cyanocobalamin (vitamin B-12) 1,000 mcg PO DAILY 07/14/20 10/31/23 Unknown History 1,000 mcg tablet fluticasone propionate 110 2 puff inhalation DAILY 07/14/20 10/31/23 Unknown History mcg/actuation HFA aerosol inhaler fluticasone propionate 50 1 spray intranasal DAILY 07/14/20 10/31/23 Unknown History mcg/actuation nasal spray,suspension melatonin 5 mg tablet 5 mg PO BEDTIME 07/14/20 10/31/23 Unknown History pen needle, diabetic 31 gauge x #1,200 ea 06/23/21 09/02/23 Unknown History 5/16 (Unifine Pentips) primidone 50 mg tablet 50 mg PO BID 06/23/21 10/31/23 Unknown History diclofenac sodium 1 % topical gel 1 ea topical DAILY 11/03/21 10/31/23 Unknown History latanoprost 0.005 % eye drops 1 drp ophthalmic (eye) DAILY 11/03/21 10/31/23 Unknown History glucose 4 gram chewable tablet 4 g PO DAILY PRN LOW BLOOD PRESSURE 08/20/22 10/31/23 Unknown History blood pressure test kit-large #1 ea 07/12/23 09/02/23 Unknown History omeprazole 20 mg capsule,delayed 20 mg PO DAILY 07/12/23 10/31/23 Unknown History release albuterol sulfate 90 mcg/actuation 1 puff inhalation DAILY PRN SOB 09/02/23 10/31/23 Unknown History aerosol inhaler ascorbic acid (vitamin C) 250 mg 250 mg PO DAILY 09/02/23 10/31/23 Unknown History tablet ferrous gluconate 324 mg (38 mg 324 mg PO DAILY 09/02/23 10/31/23 Unknown History iron) tablet losartan 50 mg-hydrochlorothiazide 1 tab PO DAILY 09/02/23 10/31/23 Unknown History 12.5 mg tablet flash glucose sensor (FreeStyle #1 ea 09/30/23 Unknown History Anthony 2 Sensor kit) Exam Airway Mallampati Class: II TM Dist: >3cm Neck ROM: Full Denture: Upper and Lower Heart: rrr Lungs: cta Assessment and Plan Assessment Anesthesia Assessment: Anesthesia Plan Discussed Final Anesthetic Review NPO: Yes ASA Class: III Final Preanesthetic Review: No Changes in Pt Med Stat, Meds/Allgs Chart Reviewed and Consent Obtained/Reviewed Patient Risk: Intermediate Procedure Risk: Intermediate Anesthetic Plan Anesthetic Plan: MAC: Disposition: Standard PACU
--- NOTE | 2023-12-09 09:34 | MHC.SHP ---
Pre-Procedural Eval Section A - 24 Hr Update-Section A only Date of Service: 12/09/23 Section B - Complete if H&P > 30 days Chief Complaint: Polyp surveillance, GERD, dysphagia Relevant Family History (Specify if Yes): Yes Relevant Social History: None Present Medications: see Short Stay Collaborative assessment Medical History: Significant History (Dysphagia Chronic restrictive lung disease Insomnia On beta anish at home History of COVID-19 Asthma Chronic constipation Broken arm CAD (coronary artery disease) HTN (hypertension) Hyperlipidemia Diabetes mellitus Dyspnea Non-toxic multinodular goiter) History of Previous Operations: Relevant previous surgery/procedure and date(s) (History of surgery Hx of elbow surgery History of surgery on arm Hx of cholecystectomy History of partial hysterectomy Hx of cataract surgery History of tubal ligation Hx of tonsillectomy History of carpal tunnel release Hx of colonoscopy) Allergies: Allergies Allergy/AdvReac Type Severity Reaction Status Date / Time lisinopril Allergy Intermediate itching Verified 10/31/23 08:38 Penicillins Allergy Intermediate rash/hives Verified 10/31/23 08:38 Review of Systems Sugical H&P ROS: Negative: Constitution, Cardiovascular, Respiratory and Gastrointestinal Exam Surgical H&P Exam: Normal: Heart, Normal: Lungs and Normal: Extremities Plan Diagnosis/Plan: Change (proceed with EGD and colon) I have reviewed the history and physical and performed a pertinent physical examination on my patient. No changes have occurred unless specified. Time Spent With Patient Time: Total time managing care of this patient today ____ minutes.
[2023-12-09 10:05] VITALS: BP 165/75; PULSE 77; RESP 16; TEMP 36.6; O2SAT 98; BMI 35.4
[2023-12-09 10:07] LABS: Glucose, Whole Blood 138 mg/dL (60-115)
[2023-12-09] MEDS: Lactated Ringers 1,000 ML 100 ML IVCONT (10:10)
--- NOTE | 2023-12-09 10:14 | P.OPN-COLO_ITS ---
Colonoscopy Operative Note Operative Note Date of Service: 12/09/23 Narrative: FLEXIBLE TRANSORAL UPPER GASTROINTESTINAL ENDOSCOPY WITH BIOPSIES AND ESOPHAGEAL BALLOON DILATION AND COLONOSCOPY TILL CECUM WITH BIOPSIES AND SNARE POLYPECTOMY Pre-op diagnosis: Colon cancer screening, GERD, Dysphagia Post-op diagnosis: GERD, dysphagia, Gastritis, Gastric polyps, Colon Polyps, Diverticulosis, hemorrhoids ? Endoscopist:? Cris Nye MD Anesthesia:?MAC UPPER ENDOSCOPY Consent: Indications for the procedure and potential complications of bleeding, perforation, reaction to medications and missed diagnosis were discussed with the patient and informed consent was obtained. Instrument: Olympus GIF H 190 mid size upper endoscope Monitoring: Vital signs and clinical assessment, continuous EKG monitoring, Pulse oximetry, Carbon Dioxide monitoring and blood pressure monitoring were done throughout the procedure. Procedure: The patient was placed in the left lateral decubitis position and pre-procedure medications were administered and a bite block was placed. The endoscope was inserted into the mouth and advanced under direct vision to the third part of duodenum. A careful inspection was made as the upper endoscope was withdrawn including a retroflexed examination of the proximal stomach; Findings and interventions are described below. Findings: Larynx: Normal Esophagus: GE junction at 36 cms. No esophagitis and Zheng's. Mildly tortuous esophagus with increased tertiary contractions Empiric esophageal balloon dilation was performed with a 20 mm (60 F) CRE balloon x 60 seconds Stomach: A few 6-7 mm benign appearing polyps in the gastric body and fundus - biopsied. Moderate diffuse gastric erythema - biopsies were obtained from the gastric body and antrum. Grade 2 flap valve on retroflexed examination of the cardia. Duodenum: Normal bulb and descending duodenum COLONOSCOPY PROCEDURE NOTE Instrument: Olympus PCF H 190 L variable stiffness pediatric colonoscope Monitoring: Vital signs and clinical assessment, intermittent blood pressure monitoring, continuous EKG monitoring, Pulse oximetry and Carbon Dioxide monitoring were done throughout the procedure. Please see anesthesia flowsheet. Colon withdrawl time was 23 minutes. Procedure: The patient was placed in the left lateral decubitis position and pre-procedure medications were administered. After a digital rectal examination of the ano-rectum, the video colonoscope was inserted into the rectum and advanced through the colon to the cecum. The colonoscope was slowly withdrawn in a retrograde panoramic fashion and the colon mucosa was carefully examined including a retroflexed view of the rectum. Findings and interventions are described below. Procedure Difficulty: There was narrowing of the sigmoid colon due to severe diverticulosis which was navigated with some difficult Findings: Terminal Ileum: Not evaluated Cecum: Normal Ascending Colon: A 7-8 mm sessile polyp in the distal ascending colon - removed with a cold snare. Moderate diverticulosis throughout the entire colon Transverse Colon: A 3-4 mm sessile polyp removed with a cold biopsy. Moderate diverticulosis throughout the entire colon Descending Colon: Moderate diverticulosis throughout the entire colon Sigmoid Colon: A 10 - 12 mm sessile polyp - removed with a hot snare. Severe diverticulosis with luminal narrowing Rectum: Normal Ano-rectum: Normal Colon preparation: Good after copious irrigation. [place] Bowel Preparation Scale Right colon; 2 Transverse colon: 2 Left colon; 2 (0 = Unprepared colon segment with mucosa not seen due to solid stool that cannot be cleared. 1 = Portion of mucosa of the colon segment seen, but other areas of the colon segment not well seen due to staining, residual stool and/or opaque liquid. 2 = Minor amount of residual staining, small fragments of stool and/or opaque liquid, but mucosa of colon segment seen well. 3 = Entire mucosa of colon segment seen well with no residual staining, small fragments of stool or opaque liquid) Impression and Post Procedure Diagnosis: Endoscopy Findings: ESOPHAGUS: Mildly tortuous esophagus with increased tertiary contractions Empiric esophageal balloon dilation was performed STOMACH: Moderate diffuse gastritis and benign appearing polyps. Colonoscopy Findings: Three small to medium sized polyps were removed Moderate to severe diverticulosis seen in the entire colon Plan: Pt has a FU appointment on 12/27/23 with Iliana Salcedo NP Repeat Colonoscopy in 3 years if polyps are adenomatous and can stop colon cancer screening if polyps are hyperplastic. Above findings were reviewed with the patient and relevant handouts were given and the discharge area. BIOPSIES SHOWED: A. Stomach, antrum, biopsy: Antral-type mucosa with mild chronic inactive inflammation and intestinal metaplasia; negative for dysplasia; no Helicobacter organisms seen. B. Stomach, polyps: Hyperplastic mucosal polyps with focal intestinal metaplasia and chronic active inflammation; negative for dysplasia; no Helicobacter organism seen. C. Stomach, body, biopsy: Chronic atrophic gastritis with intestinal metaplasia; negative for dysplasia; no Helicobacter organism seen. D. Colon, transverse, polypectomy: Colonic mucosa with prominent lymphoid aggregate. E. Colon, ascending, polypectomy: Tubular adenoma; negative for high-grade dysplasia or carcinoma. F. Colon, sigmoid, polypectomy: Tubular adenoma; negative for high-grade dysplasia or carcinoma. Letter sent to pt advising repeat EGD in 1 year (Removal of hyperplastic gastric polyps) and repeat colon in 3 years (if pt remains in stable health)
[2023-12-09 11:12] VITALS: BP 115/61; PULSE 67; RESP 16; TEMP 36.1; O2SAT 99
[2023-12-09 11:27] VITALS: BP 157/59; PULSE 65; RESP 18; TEMP 36.1; O2SAT 97
== END 2023-12-09 12:35 | disposition home or self-care (01) ==
PROVIDERS: PCP Student in an Organized Health Care Education/Training Program; Visit Provider Internal Medicine Gastroenterology
PROC: (CPT 45385; principal; 2023-12-09 10:10)
DX: Z12.11 Encounter for screening for malignant neoplasm of colon (principal); Z86.010 Personal history of colon polyps; D12.2 Benign neoplasm of ascending colon; D12.5 Benign neoplasm of sigmoid colon; K63.5 Polyp of colon; K57.30 Diverticulosis of large intestine without perforation or abscess without bleeding; K64.8 Other hemorrhoids; K52.9 Noninfective gastroenteritis and colitis, unspecified; K59.09 Other constipation; R13.19 Other dysphagia; K21.9 Gastro-esophageal reflux disease without esophagitis; K22.89 Other specified disease of esophagus; K20.80 Other esophagitis without bleeding; K31.7 Polyp of stomach and duodenum; K29.50 Unspecified chronic gastritis without bleeding; J98.4 Other disorders of lung; J45.909 Unspecified asthma, uncomplicated; I10 Essential (primary) hypertension; E78.5 Hyperlipidemia, unspecified; I25.10 Atherosclerotic heart disease of native coronary artery without angina pectoris; E11.9 Type 2 diabetes mellitus without complications; Z79.4 Long term (current) use of insulin; Z79.84 Long term (current) use of oral hypoglycemic drugs; Z79.51 Long term (current) use of inhaled steroids; Z79.82 Long term (current) use of aspirin; Z79.899 Other long term (current) drug therapy; Z88.0 Allergy status to penicillin; Z88.8 Allergy status to other drugs, medicaments and biological substances; Z90.49 Acquired absence of other specified parts of digestive tract; Z98.890 Other specified postprocedural states
CPT/HCPCS: 45385; 45380; 43239; 82947; 88305; 88313; 88342; C1726; J2704

== ENCOUNTER → 2023-12-09 09:11 | Outpatient (BNV) | payer OTHER, SELFPAY | PROVIDERS: PCP Student in an Organized Health Care Education/Training Program; Visit Provider Internal Medicine Gastroenterology | DX: R13.10 Dysphagia, unspecified (principal); K29.70 Gastritis, unspecified, without bleeding; Z12.11 Encounter for screening for malignant neoplasm of colon; D12.2 Benign neoplasm of ascending colon; D12.3 Benign neoplasm of transverse colon; D12.5 Benign neoplasm of sigmoid colon; K57.90 Diverticulosis of intestine, part unspecified, without perforation or abscess without bleeding | CPT/HCPCS: 43239; 43249; 45380; 45385 ==

== ENCOUNTER 2023-12-27 10:07 | Outpatient (AMB) | payer OTHER, SELFPAY ==
[2023-12-27 10:17] VITALS: BP 150/66; PULSE 68; O2SAT 98; BMI 35.8
--- NOTE | 2023-12-27 10:17 | A.OFFVIS_ITS ---
Vital Signs 12/27/23 10:17 Height 5 ft 3 in Weight 202 lb 6.15 oz BMI 35.8 BP 150/66 H Blood Pressure Location Lt brachial Position Sitting Pulse 68 Pulse Source Pulse Oximeter Pulse Oximetry (%) 98 Oxygen Delivery Method Room Air Intake Visit Reasons: s/p egd/colon Intake Note: Arlette presents in office today for a scheduled s/p FUV. CC; Pt denies any complications or new sx post op. Pt is here to discuss the results of their procedure. Pt denies any need for medication refill at this time. Railroad Repairer Required: Yes Railroad Repairer Name: [id number] Jeniffer Allergies lisinopril Allergy (Intermediate, Verified 12/27/23 10:18) itching Penicillins Allergy (Intermediate, Verified 12/27/23 10:18) rash/hives HPI HPI s/p egd/colon: Details: LAST VISIT: Encounter for screening colonoscopy Chronic constipation GERD (gastroesophageal reflux disease) Postprandial diarrhea Dysphagia Plan As mentioned above patient had symptoms of stroke and was evaluated and admitted to the hospital for few days. MRI negative. TPA not given. Patient's symptoms went away. Patient currently is doing well denies any recurrence of her symptoms. Please call Dr. Funez's office to see if patient needs to be cleared before going for procedure. Patient has appointment with Cardiology on October 30. Message sent to traffic control officer to add risk stratification as reason for visit so she can be cleared for the procedure. What to expect before during and after procedure discussed patient. The importance of clear liquid diet and good bowel prep day before procedure discussed with patient Patient is on Lantus, make sure to remind patient to take half of the dose 2 nights and 1 night before the procedure. I will see patient after the procedure, sooner on as needed basis. Both patient and her daughter are agreeable to this plan and verbalize understanding of instructions. They were given the opportunity to ask questions and all questions answered Medications New bisacodyl (Dulcolax (bisacodyl)) take 4 tabs at noon the day before your colonoscopy 20 mg (4 x 5 mg) PO ONCE 1 day 4 tabs 0RF Z12.11 polyethylene glycol 3350 (Miralax) As directed by gastroenterology department at [facility] 238 grams PO ONCE 238 grams 0RF Z12.11 UPPER ENDOSCOPY AND COLONOSCOPY: Findings: Larynx: Normal Esophagus: GE junction at 36 cms. No esophagitis and Zheng's. Mildly tortuous esophagus with increased tertiary contractions Empiric esophageal balloon dilation was performed with a 20 mm (60 F) CRE balloon x 60 seconds Stomach: A few 6-7 mm benign appearing polyps in the gastric body and fundus - biopsied. Moderate diffuse gastric erythema - biopsies were obtained from the gastric body and antrum. Grade 2 flap valve on retroflexed examination of the cardia. Duodenum: Normal bulb and descending duodenum COLONOSCOPY PROCEDURE NOTE Instrument: Olympus PCF H 190 L variable stiffness pediatric colonoscope Monitoring: Vital signs and clinical assessment, intermittent blood pressure monitoring, continuous EKG monitoring, Pulse oximetry and Carbon Dioxide monitoring were done throughout the procedure. Please see anesthesia flowsheet. Colon withdrawl time was 23 minutes. Procedure: The patient was placed in the left lateral decubitis position and pre-procedure medications were administered. After a digital rectal examination of the ano-rectum, the video colonoscope was inserted into the rectum and advanced through the colon to the cecum. The colonoscope was slowly withdrawn in a retrograde panoramic fashion and the colon mucosa was carefully examined including a retroflexed view of the rectum. Findings and interventions are described below. Procedure Difficulty: There was narrowing of the sigmoid colon due to severe diverticulosis which was navigated with some difficult Findings: Terminal Ileum: Not evaluated Cecum: Normal Ascending Colon: A 7-8 mm sessile polyp in the distal ascending colon - removed with a cold snare. Moderate diverticulosis throughout the entire colon Transverse Colon: A 3-4 mm sessile polyp removed with a cold biopsy. Moderate diverticulosis throughout the entire colon Descending Colon: Moderate diverticulosis throughout the entire colon Sigmoid Colon: A 10 - 12 mm sessile polyp - removed with a hot snare. Severe diverticulosis with luminal narrowing Rectum: Normal Ano-rectum: Normal Colon preparation: Good after copious irrigation. [place] Bowel Preparation Scale Right colon; 2 Transverse colon: 2 Left colon; 2 (0 = Unprepared colon segment with mucosa not seen due to solid stool that cannot be cleared. 1 = Portion of mucosa of the colon segment seen, but other areas of the colon segment not well seen due to staining, residual stool and/or opaque liquid. 2 = Minor amount of residual staining, small fragments of stool and/or opaque liquid, but mucosa of colon segment seen well. 3 = Entire mucosa of colon segment seen well with no residual staining, small fragments of stool or opaque liquid) Impression and Post Procedure Diagnosis: Endoscopy Findings: ESOPHAGUS: Mildly tortuous esophagus with increased tertiary contractions Empiric esophageal balloon dilation was performed STOMACH: Moderate diffuse gastritis and benign appearing polyps. Colonoscopy Findings: Three small to medium sized polyps were removed Moderate to severe diverticulosis seen in the entire colon Plan: Repeat Colonoscopy in 3 years if polyps are adenomatous and can stop colon cancer screening if polyps are hyperplastic. Above findings were reviewed with the patient and relevant handouts were given and the discharge area. BIOPSIES SHOWED: A. Stomach, antrum, biopsy: Antral-type mucosa with mild chronic inactive inflammation and intestinal metaplasia; negative for dysplasia; no Helicobacter organisms seen. B. Stomach, polyps: Hyperplastic mucosal polyps with focal intestinal metaplasia and chronic active inflammation; negative for dysplasia; no Helicobacter organism seen. C. Stomach, body, biopsy: Chronic atrophic gastritis with intestinal metaplasia; negative for dysplasia; no Helicobacter organism seen. D. Colon, transverse, polypectomy: Colonic mucosa with prominent lymphoid aggregate. E. Colon, ascending, polypectomy: Tubular adenoma; negative for high-grade dysplasia or carcinoma. F. Colon, sigmoid, polypectomy: Tubular adenoma; negative for high-grade dysplasia or carcinoma. Letter sent to pt advising repeat EGD in 1 year (Removal of hyperplastic gastric polyps) and repeat colon in 3 years (if pt remains in stable health) TODAY'S VISIT: Patient is here today for follow-up and to discuss upper endoscopy and colonoscopy results. Patient denies any ill effects from the prep, anesthesia or procedure itself. Patient reports that she has been doing fairly well. Upper endoscopy results as well as biopsy results discussed with patient. Patient denies any melena, hematochezia, unintentional weight loss or ribbon like stools. Patient denies any dyspepsia, dysphagia or odynophagia. Reports that omeprazole has been working for her. Hyperplastic gastric polyp removed and recommendation was made for patient to return for upper endoscopy in 1 year. Tubular adenomas without high-grade dysplasia or carcinoma were removed from ascending and sigmoid colon and recommendation for colonoscopy was made in 3 years. Patient reports that she has been feeling well except for having trouble moving her bowels daily. Patient states that sometimes no bowel movements for 3-4 days. Patient denies any other GI concerning symptoms. [facility] Medical History (Updated 01/03/24 @ 20:24 by Cherelle Salcedo [facility]) Tubular adenoma of colon Chronic restrictive lung disease Insomnia On beta anish at home History of COVID-19 Asthma Chronic constipation Broken arm CAD (coronary artery disease) HTN (hypertension) Hyperlipidemia Diabetes mellitus Dyspnea Dysphagia Non-toxic multinodular goiter Hypothyroidism Surgical History H/O thyroidectomy History of surgery Hx of elbow surgery History of surgery on arm Hx of cholecystectomy History of partial hysterectomy Hx of cataract surgery History of tubal ligation Hx of tonsillectomy History of carpal tunnel release Hx of colonoscopy Family History Father Throat cancer Heart disease CVD (cardiovascular disease) Mother Stomach cancer Type 2 diabetes mellitus Arthritis of knee Hypertension Social History Household Members: None Household Members Other:: self Housing: Apartment Are you a primary inpatient care manager rn to a significant other at home: No Do you presently have visiting nurse or other home services: No Alcohol intake: never Patient Tobacco Use Status: Never used Tobacco Second Hand Smoke Exposure: No service: No Current occupational status: retired Current occupation: right handed Review of Systems Const Denies weight gain and Denies weight loss ENT Reports no additional complaints, Denies dysphagia and Denies odynophagia Card Reports no additional complaints Resp Reports no additional complaints GI Denies abdominal pain, Denies belching, Denies melena, Denies bloating, Reports constipation, Denies dysphagia, Denies excessive flatus, Denies dyspepsia, Denies heartburn, Denies diarrhea, Denies loose stools, Denies nausea, Denies odynophagia and Denies vomiting Reports no additional complaints Musc Reports no additional complaints Neuro Reports no additional complaints Psych Reports no additional complaints Endo Reports no additional complaints Physical Exam Vital Signs: Last Vital Signs Pulse 68 12/27/23 10:17 BP 150/66 H 12/27/23 10:17 Pulse Ox 98 12/27/23 10:17 Oxygen Delivery Method Room Air 12/27/23 10:17 BMI result Body Mass Index 35.8 Const General: healthy appearing and no acute distress Nutritional Appearance: obese Orientation/consciousness: patient oriented x3 Resp Effort & Inspection: normal respiratory effort, able to speak in complete sentences, no tracheal deviation and symmetric chest movement Auscultation: clear to auscultation bilaterally Cardio Rate: regular rate GI Inspection: Yes normal to inspection, No distended and Yes obesity Palpation (GI): Soft to palpation, not firm, nontender and No hepatosplenomegaly present Auscultation: normal bowel sounds General: Yes no CVA tenderness Back/Spine/Pelvis Back: no CVA tenderness Skin General skin exam: elasticity normal, turgor normal and dry skin Neuro General: patient oriented x3 Psych Appearance: grossly normal Mental Status: mental status grossly normal Assessment & Plan Assessment & Plan (1) Tubular adenoma of colon: Code(s): D12.6 - Benign neoplasm of colon, unspecified Category: Medical (2) Chronic constipation: Code(s): K59.09 - Other constipation Category: Medical (3) Status post colonoscopy: Code(s): Z98.890 - Other specified postprocedural states (4) GERD (gastroesophageal reflux disease): Code(s): K21.9 - Gastro-esophageal reflux disease without esophagitis Qualifiers: Esophagitis presence: esophagitis presence not specified Qualified Code(s): K21.9 - Gastro-esophageal reflux disease without esophagitis (5) Benign gastric polyp: Code(s): K31.7 - Polyp of stomach and duodenum Plan Patient was encouraged to increase fiber intake. May start taking probiotics daily. Continue omeprazole daily. Avoid dietary triggers and late night snacking. Patient will start taking senna daily. Increase fluid intake and activity to promote better bowel motility. Follow-up in 6 months, sooner on as needed basis. Patient is agreeable to this plan and verbalizes understanding of instructions. She was given the opportunity to ask questions and all questions answered. Thank you for allowing me to participate in her care Medications: New sennosides (Natural Senna Laxative) 17.2 mg (2 x 8.6 mg) PO BEDTIME 60 tabs 3RF constipation K59.00 - Constipation, unspecified omeprazole 20 mg PO DAILY 30 caps 5RF K21.9 - Gastro-esophageal reflux disease without esophagitis Coding Level of Care Code Est Pt Level 3 (32564) Diagnoses Tubular adenoma of colon D12.6 Chronic constipation K59.09 Status post colonoscopy Z98.890 Gastroesophageal reflux disease, unspecified whether esophagitis present K21.9 Esophagitis presence: esophagitis presence not specified Benign gastric polyp K31.7 Time Spent (min) 30 Comment 20 minutes spent with patient and additional 10 minutes spent reviewing her records
== END 2023-12-27 10:54 | disposition home or self-care (01) ==
PROVIDERS: PCP Student in an Organized Health Care Education/Training Program; Visit Provider Nurse Practitioner Family
DX: D12.6 Benign neoplasm of colon, unspecified (principal); K59.09 Other constipation; Z98.890 Other specified postprocedural states; K21.9 Gastro-esophageal reflux disease without esophagitis; K31.7 Polyp of stomach and duodenum
CPT/HCPCS: 99213

== ENCOUNTER → 2023-12-27 10:07 | Outpatient (BNVA) | payer OTHER, SELFPAY | PROVIDERS: PCP Student in an Organized Health Care Education/Training Program; Visit Provider Nurse Practitioner Family | DX: K21.9 Gastro-esophageal reflux disease without esophagitis (principal); K59.09 Other constipation; K31.7 Polyp of stomach and duodenum; D12.6 Benign neoplasm of colon, unspecified; Z98.890 Other specified postprocedural states | CPT/HCPCS: 99212 ==

== ENCOUNTER 2024-05-21 12:30 | Outpatient (AMB) | payer OTHER, SELFPAY ==
[2024-05-21 12:48] VITALS: BP 149/67; PULSE 64; BMI 36.9
--- NOTE | 2024-05-21 12:48 | MHC.OFFVIS ---
Vital Signs 05/21/24 12:48 Height 5 ft 3 in Weight 208 lb 1.862 oz BMI 36.9 BP 149/67 H Blood Pressure Location Lt brachial Position Sitting Pulse 64 Pulse Source Pulse Oximeter Intake Visit Reasons: r/s by us Sleep Medicine Physician Required: No Dirt Contractor: Dirt Contractor Present Allergies lisinopril Allergy (Intermediate, Verified 05/21/24 12:54) itching Penicillins Allergy (Intermediate, Verified 05/21/24 12:54) rash/hives Medication List - Last Reconciled 05/21/24 by ELMER Longoria albuterol sulfate 90 mcg/actuation 1 puff inhalation DAILY PRN alcohol swabs (Alcohol Prep Pads) pad topical ascorbic acid (vitamin C) 250 mg PO DAILY aspirin 81 mg PO DAILY blood pressure test kit-large As directed blood sugar diagnostic (FreeStyle Test strips) As directed brimonidine-timolol 0.2-0.5 % drps ophthalmic (eye) calcium carbonate-vitamin D3 600 mg-10 mcg (400 unit) 1 tab PO BID celecoxib 100 mg PO DAILY cholecalciferol (vitamin D3) 50 mcg PO DAILY cyanocobalamin (vitamin B-12) 1,000 mcg PO DAILY diclofenac sodium 1% 1 ea topical DAILY ferrous gluconate 324 mg PO DAILY flash glucose sensor (GuidesMobStyle Anthony 2 Sensor kit) As directed fluticasone furoate 100 mcg/actuation (Arnuity Ellipta) 1 inh inhalation DAILY fluticasone propionate 50 mcg/actuation 1 spray intranasal DAILY glucose 4 grams PO DAILY PRN insulin glargine (Lantus Solostar U-100 Insulin) 18 units subcut BEDTIME lancets (FreeStyle Lancets) As directed latanoprost 0.005% 1 drp ophthalmic (eye) DAILY Levoxyl (levothyroxine) 75 mcg PO DAILY NS lidocaine 5% 1 patch topical DAILY losartan 25 mg PO DAILY melatonin 5 mg PO BEDTIME metformin ER 1,000 mg PO BID metoprolol succinate ER 50 mg PO DAILY multivitamin with folic acid 400 mcg 1 tab PO DAILY omega-3 acid ethyl esters 2 caps PO BID omeprazole 20 mg PO DAILY pen needle, diabetic (Unifine Pentips) As directed pregabalin (Lyrica) 100 mg PO BID primidone 50 mg PO BID sennosides (Natural Senna Laxative) 17.2 mg (2 x 8.6 mg) PO BEDTIME sitagliptin phosphate (Januvia) 25 mg PO DAILY HPI HPI r/s by us: Details: Arlette is a 79-year-old female with past medical history of hypertension, hyperlipidemia, diabetes, presume CAD, abnormal nuclear stress test who was recently admitted to [facility] with dysarthria and left-sided heaviness. She was suspected to have possible TIA, CVA was ruled out. Her symptoms did resolve. A Holter monitor was done, showing no AFib. She now presents for follow-up. Today she reports that she has been doing well since her last visit in October. She has not had any weakness to her arms and legs, no speech disturbances, no visual changes. She uses a cane for balance. She is mostly sedentary. She has no chest discomfort at rest or with exertion. No shortness of breath, PND, orthopnea or edema. No lightheadedness, presyncope, syncope, falls. Taking all meds as directed. Her GAMBLING BOX PERSON is present. [facility] Medical History Tubular adenoma of colon Chronic restrictive lung disease Insomnia On beta anish at home History of COVID-19 Asthma Chronic constipation Broken arm CAD (coronary artery disease) HTN (hypertension) Hyperlipidemia Diabetes mellitus Dyspnea Dysphagia Non-toxic multinodular goiter Hypothyroidism Surgical History H/O thyroidectomy History of surgery Hx of elbow surgery History of surgery on arm Hx of cholecystectomy History of partial hysterectomy Hx of cataract surgery History of tubal ligation Hx of tonsillectomy History of carpal tunnel release Hx of colonoscopy Family History Father Throat cancer Heart disease CVD (cardiovascular disease) Mother Stomach cancer Type 2 diabetes mellitus Arthritis of knee Hypertension Social History Household Members: None Household Members Other:: self Housing: Apartment Are you a primary day care aide to a significant other at home: No Do you presently have visiting nurse or other home services: No Alcohol intake: never Patient Tobacco Use Status: Never used Tobacco Second Hand Smoke Exposure: No service: No Current occupational status: retired Current occupation: right handed Review of Systems Const All systems reviewed & are unremarkable except as noted in HPI and below ENT Denies dizziness Card Denies chest pain, Denies chest pain at rest, Denies chest pain with activity, Denies rapid heart rate, Denies pedal edema, Denies edema, Denies leg edema, Denies lightheadedness, Denies palpitations, Denies dyspnea, Denies dyspnea on exertion and Denies orthopnea Resp Denies cough, Denies dyspnea and Denies dyspnea on exertion GI Denies hematochezia and Denies change in stool character Musc Denies abnormal gait, Denies limited range of motion, Denies muscle cramps, Denies muscle weakness, Denies numbness, Denies radiating pain into limb, Denies stiffness and Denies tingling Neuro Denies abnormal gait, Denies dizziness, Denies numbness and Denies tingling Endo Denies palpitations Physical Exam Vital Signs: Last Vital Signs Pulse 64 05/21/24 12:48 BP 149/67 H 05/21/24 12:48 BMI result Body Mass Index 36.9 Const General: cooperative, healthy appearing, comfortable and no acute distress Orientation/consciousness: patient oriented x3 Neck Neck: Yes normal visual inspection and Yes no JVD Resp Effort & Inspection: normal respiratory effort Auscultation: clear to auscultation bilaterally, no crackles, no rales, no rhonchi and no wheezes Cardio Jugular venous distension: no JVD Rate: regular rate Rhythm: regular rhythm Heart sounds: S1 normal heart sound present, S2 normal heart sound present, no murmurs and no rubs Neuro General: patient oriented x3 Extrem Other: moves all extremities General: Yes normal to inspection, No no pedal edema and No calf tenderness Psych Other: speech clear and appropriate Appearance: grossly normal Mental Status: mental status grossly normal Speech and movement: Normal speech and movement present Assessment & Plan Assessment & Plan (1) Weakness of left side of body: Code(s): R53.1 - Weakness Category: Medical Plan: [facility] admission last August for garbled speech and reported heaviness on the left side of her body with sudden onset. A CT scan of the head did show a hypodensity in the gail and left cerebellum suspicious for ischemia. A CTA of the head showed no acute occlusions or stenosis. MRI of the brain showed no acute abnormalities. Neurology note reviewed and states possible TIA. Her clinical symptoms did resolve. An echocardiogram done 09/02/2019 4 showed EF 50-55%, no significant valve abnormalities. A Holter monitor was done for 9 days on 11/10/2023 which showed sinus rhythm with average heart rate 63, no atrial fibrillation, no significant arrhythmia. Today she reports doing well with no new neurological symptoms. She denies any heart palpitations. Pulse is regular on exam, clinically in sinus rhythm. I would still like to do further evaluation for atrial fibrillation. The use of a cardiac event monitor may be challenging for her. I recommended a repeat Holter monitor for a longer period of time and she declines. She says she is doing fine and does not want to pursue further testing. Will have her continue daily aspirin. Continue with good blood pressure control. Her blood pressure is mildly elevated today, initially 149/67, recheck done by me 142/64. Recommended the increase of losartan dose and again she declines. At this time she will continue on losartan 25 mg daily and metoprolol XL 50 mg daily. Recommend she continue on statin. Emergency care if ever needed for symptoms. Cardiology office visit in 6 months, sooner if needed. (2) CAD (coronary artery disease): Comment: circumflex territory ischemia on nuclear stress testing, no invasive strategy due to lack of symptoms Code(s): I25.10 - Atherosclerotic heart disease of [place] coronary artery without angina pectoris Category: Medical Plan: Presumed to have CAD based on nuclear stress test done in the past showing circumflex territory ischemia. She did have a repeat nuclear stress test on 08/10/2021 showing a fixed distal inferior lateral defect, question prior infarct, [id number] ischemia in the distal anterior septal wall. She has not been reporting any anginal symptoms. EKG done last visit showed no findings suggesting ischemia. She has multiple cardiac risk factors including hypertension, hyperlipidemia, diabetes. She needs ongoing risk factor modification. Reviewed this with her and she states understanding. Continue aspirin, simvastatin and metoprolol. Signs and symptoms of angina reviewed with her. Emergency care if ever needed for symptoms. (3) HTN (hypertension): Code(s): I10 - Essential (primary) hypertension Category: Medical Plan: Well controlled at this time. No med changes made. Continue metoprolol and losartan/hydrochlorothiazide. Labs done on 09/02/2023 showed potassium 3.8, creatinine 0.6. (4) Hyperlipidemia: Code(s): E78.5 - Hyperlipidemia, unspecified Category: Medical Plan: [place] LDL goal less than 70 in patient with diabetes. Labs done on 09/02/2023 showed LDL 86. I had ordered atorvastatin for her on her last visit however it is not on her med list today. Unclear what happened to this medication. I will recent to the pharmacy so she can begin taking it. Plan Time spent on chart review, documentation, interview and assessment Medications: New atorvastatin Cholesterol-lowering medication 40 mg PO BEDTIME 30 days 30 tabs 5RF Coding Level of Care Code Est Pt Level 4 (22133) Complex EM visit Add On G2211 Diagnoses Weakness of left side of body R53.1 CAD (coronary artery disease) I25.10 HTN (hypertension) I10 Hyperlipidemia E78.5 Time Spent (min) 30
== END 2024-05-21 13:15 | disposition home or self-care (01) ==
PROVIDERS: PCP Student in an Organized Health Care Education/Training Program; Visit Provider Nurse Practitioner Family
DX: R53.1 Weakness (principal); I25.10 Atherosclerotic heart disease of native coronary artery without angina pectoris; I10 Essential (primary) hypertension; E78.5 Hyperlipidemia, unspecified
CPT/HCPCS: 99214; G2211

== ENCOUNTER → 2024-05-21 12:30 | Outpatient (BNVA) | payer OTHER, SELFPAY | PROVIDERS: PCP Student in an Organized Health Care Education/Training Program; Visit Provider Nurse Practitioner Family | DX: R53.1 Weakness (principal); I25.10 Atherosclerotic heart disease of native coronary artery without angina pectoris; I10 Essential (primary) hypertension; E78.5 Hyperlipidemia, unspecified | CPT/HCPCS: 99212 ==

== ENCOUNTER 2024-05-23 13:21 | Emergency (ER) | payer OTHER, SELFPAY ==
--- NOTE | ~2024-05-23 | XR_ITS ---
EXAMINATION: XR KNEE, RIGHT CLINICAL INFORMATION: fall COMPARISON: December 18, 2020 TECHNIQUE: Four views of the right knee. FINDINGS: No acute cortical disruption or malalignment. Joint space narrowing involving mostly the medial compartment. No suprapatellar bursa joint effusion. No lytic or blastic lesions. Osteopenia versus osteoporosis. Vascular calcifications. XR/XR knee RT 3V IMPRESSION: Bicompartmental strength sclerosis without acute fracture or dislocation. Electronically signed by: Xander Hurt MD 05/23/2024 02:10 PM [facility]
--- NOTE | ~2024-05-23 | XR_ITS ---
EXAMINATION: XR FOREARM, RIGHT CLINICAL INFORMATION: fall COMPARISON: None available. TECHNIQUE: AP and lateral views of the right forearm were obtained. FINDINGS: No acute cortical disruption. No metallic or radiopaque foreign body. No subcutaneous emphysema. No lytic or blastic lesions.. XR/XR forearm RT 2V IMPRESSION: No acute fracture. Electronically signed by: Xander Hurt MD 05/23/2024 02:08 PM [facility]
--- NOTE | ~2024-05-23 | XR_ITS ---
CLINICAL HISTORY: lateral view 1 view right elbow Comparison: CR/SR - XR ELBOW RT MIN 3V - 05/23/24 14:00 EST Findings: Bones intact. No dislocations. No significant loss of joint space, osteophytes, or erosions. No joint effusion. No radiopaque foreign body. IMPRESSION: No definite fracture. If there is high clinical concern, follow-up imaging would be recommended. This document has been electronically signed by: Daniel Bo MD on 05/23/2024 18:45:07
--- NOTE | ~2024-05-23 | XR_ITS ---
EXAMINATION: XR ELBOW 3 VIEWS RIGHT HISTORY: fall COMPARISON: Correlation is made with plain films of the forearm performed simultaneously. FINDINGS: AP and oblique views of the right elbow are submitted. Osseous mineralization is normal. No fracture is seen, although evaluation is limited without a true lateral view of the elbow. The generalized joint spaces are preserved. The soft tissues are unremarkable. XR/XR elbow RT min 3V IMPRESSION: Limited examination, as no true lateral view of the elbow was obtained. No definite fracture is seen, although if there remains clinical concern for elbow fracture, a true lateral view is recommended. Electronically signed by: Grzegorz Borden MD 05/23/2024 02:10 PM [facility]
--- NOTE | 2024-05-23 13:32 | ED_ITS ---
HPI - Extremity Injury (Lower) General Chief Complaint: Extremity Problem Stated Complaint: R Knee Pain Fall 05/23/24 Time Seen by Provider: 05/23/24 23:52 Source: patient Limitations: language barrier History of Present Illness ED Provider: Dahlia Medrano PA-C HPI Narrative: 79-year-old female with a history of obesity, arthritis, hypothyroidism, hypertension, hyperlipidemia, diabetes, coronary artery disease, asthma who presents after fall. Patient states she was trying to get onto a bus, she subsequently fell landing on her right side. Patient complains of right arm right knee and hip pain. There was no head trich there was no loss consciousness the patient does not use a blood thinner. Related Data Home Medications ?Medication ?Instructions ?Recorded ?Confirmed blood sugar diagnostic (FreeStyle #10 ea 02/12/20 12/09/23 Test strips) lancets 28 gauge (FreeStyle #100 ea 02/12/20 12/09/23 Lancets) metoprolol succinate 50 mg 50 mg PO DAILY 02/12/20 05/21/24 tablet,extended release 24 hr pregabalin 100 mg capsule (Lyrica) 100 mg PO BID 02/12/20 05/21/24 aspirin 81 mg tablet,delayed 81 mg PO DAILY 03/18/20 05/21/24 release calcium 600 mg (as 1 tab PO BID 03/18/20 05/21/24 carbonate)-vitamin D3 10 mcg (400 unit) tablet cholecalciferol (vitamin D3) 50 50 mcg PO DAILY 03/18/20 05/21/24 mcg (2,000 unit) capsule metformin 500 mg tablet,extended 1,000 mg PO BID 03/18/20 05/21/24 release 24 hr multivitamin with folic acid 400 1 tab PO DAILY 05/19/20 05/21/24 mcg tablet cyanocobalamin (vitamin B-12) 1,000 mcg PO DAILY 07/14/20 05/21/24 1,000 mcg tablet fluticasone propionate 50 1 spray intranasal DAILY 07/14/20 05/21/24 mcg/actuation nasal spray,suspension melatonin 5 mg tablet 5 mg PO BEDTIME 07/14/20 05/21/24 pen needle, diabetic 31 gauge x #1,200 ea 06/23/21 12/09/23 5/16 (Unifine Pentips) primidone 50 mg tablet 50 mg PO BID 06/23/21 05/21/24 diclofenac sodium 1 % topical gel 1 ea topical DAILY 11/03/21 05/21/24 latanoprost 0.005 % eye drops 1 drp ophthalmic (eye) DAILY 11/03/21 05/21/24 glucose 4 gram chewable tablet 4 g PO DAILY PRN LOW BLOOD PRESSURE 08/20/22 05/21/24 blood pressure test kit-large #1 ea 07/12/23 12/09/23 albuterol sulfate 90 mcg/actuation 1 puff inhalation DAILY PRN SOB 09/02/23 05/21/24 aerosol inhaler ascorbic acid (vitamin C) 250 mg 250 mg PO DAILY 09/02/23 05/21/24 tablet ferrous gluconate 324 mg (38 mg 324 mg PO DAILY 09/02/23 05/21/24 iron) tablet flash glucose sensor (FreeStyle #1 ea 09/30/23 12/09/23 Anthony 2 Sensor kit) alcohol swabs (Alcohol Prep Pads) pad topical 12/27/23 05/21/24 brimonidine 0.2 %-timolol 0.5 % drp ophthalmic (eye) 12/27/23 05/21/24 eye drops fluticasone furoate 100 1 inh inhalation DAILY 12/27/23 05/21/24 mcg/actuation blister powder for inhalation (Arnuity Ellipta) insulin glargine 100 unit/mL (3 18 unit subcut BEDTIME 12/27/23 05/21/24 mL) subcutaneous pen (Lantus Solostar U-100 Insulin) lidocaine 5 % topical patch 1 patch topical DAILY 12/27/23 05/21/24 losartan 25 mg tablet 25 mg PO DAILY 12/27/23 05/21/24 omega-3 acid ethyl esters 1 gram 2 cap PO BID 12/27/23 05/21/24 capsule sitagliptin phosphate 25 mg tablet 25 mg PO DAILY 12/27/23 05/21/24 (Januvia) celecoxib 100 mg capsule 100 mg PO DAILY 05/21/24 05/21/24 Previous Rx's ?Medication ?Instructions ?Recorded Levoxyl 75 mcg tablet 75 mcg PO DAILY #90 tabs 12/08/21 (levothyroxine) omeprazole 20 mg capsule,delayed 20 mg PO DAILY #30 caps 12/27/23 release sennosides 8.6 mg tablet (Natural 17.2 mg (2 x 8.6 mg) PO BEDTIME 12/27/23 Senna Laxative) constipation #60 tabs atorvastatin 40 mg tablet 40 mg PO BEDTIME 30 days #30 tabs 05/21/24 Allergies Allergy/AdvReac Type Severity Reaction Status Date / Time lisinopril Allergy Intermediate itching Verified 05/23/24 13:34 Penicillins Allergy Intermediate rash/hives Verified 05/23/24 13:34 Review of Systems Review of Systems: Yes all other systems are reviewed and are negative Constitutional: Constitutional: Denies fatigue, Denies fever(s) and Denies headache(s) ENT: Denies headache(s) Cardiovascular: Cardiovascular: Denies chest pain and Denies dyspnea Respiratory: Respiratory: Denies dyspnea Gastrointestinal: Gastrointestinal: Denies abdominal pain Musculoskeletal: Musculoskeletal: Reports arthralgias, Denies joint swelling, Denies numbness and Denies tingling Neurologic: Denies headache(s), Denies numbness and Denies tingling Endocrine: Endocrine: Denies fatigue PMFSH Past Medical History Attestation statement: The following information was validated with the patient. Medical History Tubular adenoma of colon Chronic restrictive lung disease Insomnia On beta anish at home History of COVID-19 Asthma Chronic constipation Broken arm CAD (coronary artery disease) HTN (hypertension) Hyperlipidemia Diabetes mellitus Dyspnea Dysphagia Non-toxic multinodular goiter Hypothyroidism Surgical History H/O thyroidectomy History of surgery Hx of elbow surgery History of surgery on arm Hx of cholecystectomy History of partial hysterectomy Hx of cataract surgery History of tubal ligation Hx of tonsillectomy History of carpal tunnel release Hx of colonoscopy Family History Family History Father Throat cancer Heart disease CVD (cardiovascular disease) Mother Stomach cancer Type 2 diabetes mellitus Arthritis of knee Hypertension Social History Social History Household Members: None Household Members Other:: self Housing: Apartment Are you a primary child care development specialist to a significant other at home: No Do you presently have visiting nurse or other home services: No Alcohol intake: never Patient Tobacco Use Status: Never used Tobacco Second Hand Smoke Exposure: No Advance Directives: No Advance Directives Information Provided: No Do you have a plan to hurt others: No Plan service: No Current occupational status: retired Current occupation: right handed Physical Exam Vital Signs: Vital Signs: Last Vital Signs Temp 99.0 F 05/23/24 23:15 Pulse 62 05/23/24 23:15 Resp 18 05/23/24 23:15 BP 132/68 05/23/24 23:15 Pulse Ox 94 05/23/24 23:15 O2 Del Method Room Air 05/23/24 23:15 BMI result Body Mass Index 36.7 Const: Other: Alert, no sign of head trauma on exam Orientation/consciousness: patient oriented x3 Resp: Effort & Inspection: normal respiratory effort Cardio: Other: Normal peripheral perfusion Skin: Other: Warm dry no rash Neuro: General: patient oriented x3, no focal motor deficits and CN's II-XI intact bilaterally Extrem: Other: Full range of motion on flexion and extension from the right elbow and right knee Psych: Other: Cooperative Course Course Course Narrative: This is a Rapid Medical Exam performed in triage by Jeannie Moulton PA-C. Full HPI, ROS and PE to be performed by primary ED provider. 79yo Micronesian-speaking F w/PMHx asthma, CAD, HTN, HLD, diabetes, hypothyroid, presenting to the ED c/o RUE & right knee pain s/p fall today. denies head trauma/LOC. Fell attempting to get into [employer] bus PE: + tenderness to right elbow/proximal forearm. Neurovascularly intact distally. Right knee with mild swelling and tenderness Plan: X-rays Medications Administered Discontinued Medications Generic Name Dose Route Start Last Admin Trade Name Freq PRN Reason Stop Dose Admin Acetaminophen 975 mg 05/24/24 00:25 05/24/24 00:34 Acetaminophen 325 Mg Tablet PO 05/24/24 00:26 975 mg ONCE ONE Administration Medical Decision Making Medical Decision Making [facility] Narrative: 79-year-old female with a history of obesity, arthritis, hypothyroidism, hypertension, hyperlipidemia, diabetes, coronary artery disease, asthma who pr esents after fall. Patient states she was trying to get onto a bus, she subsequently fell landing on her right side. Patient complains of right arm right knee and hip pain. There was no head trich there was no loss consciousness the patient does not use a blood thinner. Problem: Age, osteoporosis arthritis History: Per patient I have considered the following differential diagnoses: Fracture, dislocation, contusion, sprain Plan: X-rays were ordered from triage, there are no fractures. The patient has full range of motion. She can follow up with primary care. I have independently reviewed the following tests: X-ray knee: XR/XR knee RT 3V IMPRESSION: Bicompartmental strength sclerosis without acute fracture or dislocation. Electronically signed by: Xander Hurt MD 05/23/2024 02:10 PM EST RP X-ray forearm at: XR/XR forearm RT 2V IMPRESSION: No acute fracture. Electronically signed by: Xander Hurt MD 05/23/2024 02:08 PM EST RP X-ray elbow: RDER #: [id number] XR/XR elbow RT min 3V IMPRESSION: Limited examination, as no true lateral view of the elbow was obtained. No definite fracture is seen, although if there remains clinical concern for elbow fracture, a true lateral view is recommended. Electronically signed by: Grzegorz Borden MD 05/23/2024 02:10 PM EST RP MPRESSION: No definite fracture. If there is high clinical concern, follow-up imaging would be recommended. This document has been electronically signed by: Daniel Bo MD on 05/23/2024 18:45:07 Discharge Plan Discharge Clinical Impression: Contusion Patient Disposition: Home, Self-Care Instructions: Bone Bruise (ED) Additional Instructions: The x-rays of your elbow forearm and knee were normal you did not sustain a fracture. You have a contusion. See home care instructions. You can use [id number] Tylenol 1000 mg taken every 8 hours with food for your pain. Follow up with your primary care provider as needed. Prescriptions: No Action levothyroxine [Levoxyl] 75 mcg tablet 75 mcg PO DAILY Qty: 90 3RF albuterol sulfate 90 mcg/actuation HFA aerosol inhaler 1 puff inhalation DAILY PRN (Reason: SOB) ferrous gluconate 324 mg (38 mg iron) tablet 324 mg PO DAILY ascorbic acid (vitamin C) 250 mg Tablet 250 mg PO DAILY pregabalin [Lyrica] 100 mg capsule 100 mg PO BID metoprolol succinate 50 mg tablet extended release 24 hr 50 mg PO DAILY (DME) lancets [FreeStyle Lancets] 28 gauge misc See Rx Instructions .ROUTE .MEDSUPPLY Qty: 100 Rx Instructions: As directed (DME) FreeStyle Test Strip See Rx Instructions .ROUTE .MEDSUPPLY Qty: 10 Rx Instructions: As directed Lantus Solostar U-100 Insulin 100 unit/mL (3 mL) insulin pen 18 unit subcut BEDTIME aspirin 81 mg tablet,delayed release (DR/EC) 81 mg PO DAILY metformin 500 mg tablet extended release 24 hr 1,000 mg PO BID calcium carbonate-vitamin D3 600 mg(1,500mg) -400 unit tablet 1 tab PO BID cholecalciferol (vitamin D3) 50 mcg (2,000 unit) capsule 50 mcg PO DAILY multivitamin with folic acid 400 mcg tablet 1 tab PO DAILY cyanocobalamin (vitamin B-12) 1,000 mcg tablet 1,000 mcg PO DAILY fluticasone propionate 50 mcg/actuation spray,suspension 1 spray intranasal DAILY melatonin 5 mg tablet 5 mg PO BEDTIME primidone 50 mg tablet 50 mg PO BID (DME) pen needle, diabetic [Unifine Pentips] 31 gauge x 5/16 needle See Rx Instructions .ROUTE .MEDSUPPLY Qty: 1200 Rx Instructions: As directed latanoprost 0.005 % drops 1 drp ophthalmic (eye) DAILY diclofenac sodium 1 % gel 1 ea topical DAILY glucose 4 gram tablet,chewable 4 g PO DAILY PRN (Reason: LOW BLOOD PRESSURE) (DME) FreeStyle Anthony 2 Sensor Kit See Rx Instructions .ROUTE .MEDSUPPLY Qty: 1 Rx Instructions: As directed celecoxib 100 mg capsule 100 mg PO DAILY atorvastatin 40 mg tablet 40 mg PO BEDTIME 30 Days Qty: 30 5RF Rx Instructions: Cholesterol-lowering medication (DME) blood pressure test kit-large Kit See Rx Instructions .ROUTE BID Qty: 1 Rx Instructions: As directed Arnuity Ellipta 100 mcg/actuation blister with device 1 inh inhalation DAILY losartan 25 mg tablet 25 mg PO DAILY alcohol swabs [Alcohol Prep Pads] Pads, Medicated topical omega-3 acid ethyl esters 1 gram capsule 2 cap PO BID Apruvia 25 mg tablet 25 mg PO DAILY lidocaine 5 % adhesive patch,medicated 1 patch topical DAILY brimonidine-timolol 0.2-0.5 % drops ophthalmic (eye) sennosides [Natural Senna Laxative] 8.6 mg tablet 17.2 mg PO BEDTIME Qty: 60 3RF omeprazole 20 mg capsule,delayed release(DR/EC) 20 mg PO DAILY Qty: 30 5RF Print Language: Micronesian
[2024-05-23 13:34] VITALS: BP 111/52; PULSE 62; RESP 18; TEMP 36.8; O2SAT 97; BMI 36.7
--- OUTSIDE RECORDS SUMMARY | 2024-05-23 22:49 | XMS_ITS | Encounter Summary ---
Author Organization [employer] Address [address] [facility] [address] [place] [address] Care Team Providers Care Machine Brush Maker Name Role Phone Nahomy Davies MD Primary Care Pro vider Reason for Visit * Reason Comments Med Refill Encounter Details Date Type Department Care Team ([facility] st Contact Info) Description 11/08/2023 Refill [facility] [address] [place] [address] Nahomy Davies MD [address] [place] [address] Type 2 diabetes mellitus without complication, without long-term current use of insulin ([facility]) Social History Tobacco Use Types Packs/Day Years Used Date Smoking Tobacco: Never Passive Smoke Exposure: Never Smokeless Tobacco: Never Alcohol Use Standard Drinks/Week Comments Never 0 (1 standard drink = 0.6 oz pur e alcohol) Depression Answer Date Recorded Patient Health Questionnaire-9 Score 0 04/23/2022 Housing Stability Answer Date Recorded What is your housing situation today? I am not s ure 10/04/[address] you li ve. Do you have problems with any of the following? None of the above 10/04/2023 Food Insecurity Answer Date Recorded Within the past 12 months, y ou worried that your food would run out before you got money to buy more: Never True 10/04/2023 Within the past 12 months,th e food you bought just didn't last and you didn't have enough money to get more: Never True Transportation Answer Date Recorded In the past 12 months, has l ack of transportation kept you from medical appts, meetings, work or from getting things needed for daily living? No 10/04/2023 Utilities Answer Date Recorded In the past 12 months, has t he electric, gas, oil or water company threatened to shut off services in your home? No 10/04/2023 Depression Answer Date Recorded Patient Health Questionnaire-2 Score 0 03/08/2023 Comments No Sex and Gender Information Value Date Recorded Sex Assigned at Female 02/08/2022 10:14 AM EDT Legal Sex Female 10:14 AM EDT Gender Identity Female 02/08/2022 10:14 AM EDT Sexual Orientation Straight 02/08/2022 10 :14 AM EDT documented as of this encounter Plan of Treatment Not on file documented as of this encounter Visit Diagnoses Diagnosis Type 2 diabetes mellitus without complication, without long-term current use of insulin ([facility]) documented in this encounter Additional Health Concerns Assessment Noted Time PHQ-9 Depression Total Score: 0 04/23/19 9:18 AM EST documented as of this encounter Care Teams Machine Brush Maker Relationship Specialty Start Date End Date Nahomy Davies MD [address] [place] [id number] PCP - General Internal Medicine 01/13/23 documented as of this encounter
--- OUTSIDE RECORDS SUMMARY | 2024-05-23 22:50 | XMS_ITS | Encounter Summary ---
Author Organization [employer] Address [address] [facility] [address] [place] [address] Care Team Providers Care Maintenance Machinist Name Role Phone Nahomy Davies MD Primary Care Pro vider Reason for Visit * Reason Comments Med Refill Encounter Details Date Type Department Care Team ([facility] st Contact Info) Description 07/23/2023 Refill [facility] [address] [place], [place] [id number] Suyapa Doyle MD [address] [place] [address] Shortness of breath Social History Tobacco Use Types Packs/Day Years Used Date Smoking Tobacco: Never Passive Smoke Exposure: Never Smokeless Tobacco: Never Alcohol Use Standard Drinks/Week Comments Never 0 (1 standard drink = 0.6 oz pur e alcohol) Depression Answer Date Recorded Patient Health Questionnaire-9 Score 0 04/23/2022 Housing Stability Answer Date Recorded What is your housing situation today? I have chiara bello 01/24/[address] you li ve. Do you have problems with any of the following? None of the above 01/24/2023 Food Insecurity Answer Date Recorded Within the past 12 months, y ou worried that your food would run out before you got money to buy more: Never True 01/24/2023 Within the past 12 months,th e food you bought just didn't last and you didn't have enough money to get more: Never True Transportation Answer Date Recorded In the past 12 months, has l ack of transportation kept you from medical appts, meetings, work or from getting things needed for daily living? No 01/24/2023 Utilities Answer Date Recorded In the past 12 months, has t he electric, gas, oil or water company threatened to shut off services in your home? No 01/24/2023 Depression Answer Date Recorded Patient Health Questionnaire-2 [...] as of this encounter Visit Diagnoses Diagnosis Shortness of breath documented in this encounter Additional Health Concerns Assessment Noted Time PHQ-9 Depression Total Score: 0 04/23/19 9:18 AM EST documented as of this encounter Care Teams Maintenance Machinist Relationship Specialty Start Date End Date Nahomy Davies MD [address] [place] [phone] PCP - General Internal Medicine 01/13/23 documented as of this encounter
--- OUTSIDE RECORDS SUMMARY | 2024-05-23 22:50 | XMS_ITS | Encounter Summary ---
Author Organization [employer] Address [address] [facility] [address] [place] [address] Care Team Providers Care Mold Stamper And Repairer Name Role Phone Nahomy Davies MD Primary Care Pro vider Reason for Visit * Reason Comments Med Refill Encounter Details Date Type Department Care Team ([facility] st Contact Info) Description 10/18/2023 Refill [facility] MED[facility]INE [address] [place] [address] Nahomy Davies MD [address] [place] [address] Social History Tobacco Use Types Packs/Day Years [...] documented as of this encounter Visit Diagnoses Not on filedocumented in this encounter Additional Health Concerns Assessment Noted Time PHQ-9 Depression Total Score: 0 04/23/19 9:18 AM EST documented as of this encounter Care Teams Mold Stamper And Repairer Relationship Specialty Start Date End Date Nahomy Davies MD [address] [place] [id number] PCP - General Internal Medicine 01/13/23 documented as of this encounter
--- OUTSIDE RECORDS SUMMARY | 2024-05-23 22:50 | XMS_ITS | Clinical Summary ---
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 1 kit 023 Active primidone (Mysoline) 50 MG tabletIndications :Essential tremor TAKE ONE TABLET BY MOUTH AT BEDTIME ^1R4 28 tablet 11 023 Active lidocaine-priloca ine (Emla) 2.5-2.5 % creamIndications: Type 2 diabetes mellitus without complication, without long-term current use of insulin ([facility]) APPLY A SMALL AMOUNT TOPICALLY TO AFFECTED AREA(S) TWO TIMES A DAY 60 g 3 023 Active latanoprost (Xalatan) 0.005 % ophthalmic solution Administer 1 drop into both eyes at bedtime. 023 Active brimonidine-timol ol (Combigan) 0.2-0.5 % ophthalmic solution Administer 1 drop into both eyes 2 times daily. 023 Active simvastatin (Zocor) 40 MG tabletIndications :Mixed hyperlipidemia TAKE 1 TABLET BY MOUTH AT BEDTIME ^1R4 90 tablet 3 024 Active glucose blood (FreeStyle Precision Mahesh Test) test strip Test blood sugar q 8 hours 100 each Active fluticasone furoate (Arnuity Ellipta) 100 MCG/ACT inhaler Inhale 1 puff Once per day. Rinse mouth with water after use to reduce aftertaste and incidence of candidiasis. Do not swallow. 1 each 024 2024 Active pen needle 31G x 8 mm misc USE DAILY as INSTRUCTED 100 each Active Continuous Glucose Collector Of Aquarium Specimens (FreeStyle Anthony 2 Boomer) device Use as directed to monitor glucose ever 8 hours. 1 each Active Continuous Glucose Sensor (FreeStyle Anthony 2 Sensor) misc Use as directed to monitor glucose ever 8 hours. Replace sensor every 14 days. 2 each Active insulin glargine (Lantus SoloStar) 100 UNIT/ML penIndications:Ty pe 2 diabetes mellitus with hypoglycemia without coma, with long-term current use of insulin ([facility]) Inject 18 Units under the skin at bedtime. 30 mL Active losartan (Cozaar) 25 MG tablet Take 1 tablet (25 mg) by mouth Once per day. 30 tablet 024 2024 Active cyanocobalamin (Vitamin B-12) 1000 MCG tabletIndications :Cobalamin deficiency TAKE 1 TABLET BY MOUTH ONCE A DAY 30 tablet Active pregabalin (Lyrica) 100 MG capsule TAKE ONE CAPSULE BY MOUTH TWICE A DAY ^1R1,1R4 56 capsule 5 Active Senna-Time 8.6 MG tablet TAKE 2 TABLETS BY MOUTH EVERY DAY AT BEDTIME FOR CONSTIPATION Active omega-3 acid ethyl esters (Lovaza) 1 g capsuleIndication s:Mixed hyperlipidemia TAKE TWO CAPSULES BY MOUTH TWICE A DAY ^2R2,2R3 120 capsule Active Diclofenac Sodium 1 % gel APPLY TOPICALLY EACH DAY IF NEEDED FOR SHOULDER PAIN (BULK) 100 g Active Ascorbic Acid (vitamin C) 250 MG tabletIndications :Iron deficiency anemia, unspecified iron deficiency anemia type TAKE ONE TABLET BY MOUTH EVERY MORNING ^1R1 30 tablet 024 Active metFORMIN XR (Glucophage-XR) 500 MG 24 hr tabletIndications :Type 2 diabetes mellitus without complication, without long-term current use of insulin (CMS/[facility]) TAKE 2 TABLETS BY MOUTH TWO TIMES A DAY WITH FOOD 112 tablet 5 Active metoprolol succinate XL (Toprol-XL) 50 MG 24 hr tabletIndications :Essential hypertension TAKE ONE TABLET BY MOUTH EVERY DAY ^1R1 30 tablet 5 024 Active lidocaine (Lidoderm) 5 % patchIndications: Chronic neck pain APPLY ONE PATCH TOPICALLY ONCE DAILY - REMOVE AND DISCARD PATCH WITHIN 12 HOURS OR DIRECTED BY MD (BULK) 30 patch 3 Active albuterol 108 (90 Base) MCG/ACT inhalerIndication s:Shortness of breath INHALE TWO PUFFS BY MOUTH FOUR TIMES A DAY (BULK) 8.5 g 3 024 Active glucose 4 g chewable tabletIndications :Type 2 diabetes mellitus with other specified complication, with long-term current use of insulin (CMS/[facility]) CHEW AND SWALLOW 4 TABLETS BY MOUTH IF NEEDED FOR LOW BLOOD SUGAR (BULK) 50 tablet 3 024 Active FreeStyle lancets 1 each by Other route 3 times daily. USE TO TEST BLOOD SUGAR THREE TIMES A DAY 200 each 025 Active cholecalciferol VITAMIN D (Vitamin D-3) 50 MCG (2000 UT) capsule TAKE ONE CAPSULE BY MOUTH EVERY DAY 30 capsule 3 025 Active aspirin (Aspirin Low Dose) 81 MG EC tablet TAKE ONE TABLET BY MOUTH EVERY DAY 30 tablet 3 025 Active Calcium + Vitamin D3 600-10 MG-MCG tabletIndications :Osteopenia determined by x-ray TAKE ONE TABLET BY MOUTH TWICE A DAY ^1R1,1R4 60 tablet 3 025 Active ferrous gluconate (Fergon) 324 (38 Fe) MG tabletIndications :Iron deficiency anemia, unspecified iron deficiency anemia type TAKE ONE TABLET BY MOUTH EVERY DAY WITH BREAKFAST 30 tablet 025 Active Januvia 50 MG tablet TAKE ONE TABLET BY MOUTH EVERY DAY ^1R1 30 tablet 3 025 Active levothyroxine (Synthroid, Levoxyl) 75 MCG tabletIndications :Acquired hypothyroidism TAKE ONE TABLET BY MOUTH EVERY DAY BEFORE BREAKFAST 30 tablet 3 025 Active melatonin 5 MG tabletIndications :Sleep disturbance TAKE ONE TABLET BY MOUTH AT BEDTIME 30 tablet 3 025 Active Multiple Vitamin (Tab-A-Nelly) tablet TAKE ONE TABLET BY MOUTH EVERY DAY 30 tablet 3 025 Active omeprazole (PriLOSEC) [address] capsule TAKE ONE CAPSULE BY MOUTH EVERY DAY BEFORE MEALS ^1R1 30 capsule 3 025 Active Alcohol Swabs (Easy Touch Alcohol Prep Medium) 70 % padsIndications:T ype 2 diabetes mellitus without complication, unspecified whether nursing home insulin use (CMS/[facility]) USE TO TEST BLOOD SUGAR AND ADMINISTER INSULIN AT NOON AND IN THE EVENING (5-7 TIMES DAILY ) (BULK) 200 each 3 025 Active Acetaminophen Extra Strength 500 MG tabletIndications :Type 2 diabetes mellitus without complication, without long-term current use of insulin (CMS/[facility]) TAKE ONE TO TWO TABLETS BY MOUTH THREE TIMES A DAY NEEDED (VIAL) 60 tablet 1 025 Active Acetaminophen Extra Strength 500 MG tabletIndications :Type 2 diabetes mellitus without complication, without long-term current use of insulin (CMS/[facility]) TAKE ONE TO TWO TABLETS BY MOUTH THREE TIMES A DAY NEEDED (VIAL) 60 tablet 1 025 2024 Discontinued Alcohol Swabs (Pharmacist Choice Alcohol) padsIndications:T ype 2 diabetes mellitus without complication, unspecified whether nursing home insulin use (CMS/[facility]) USE TO CHECK BLOOD SUGAR AND ANDMINSTER INSULIN AT NOON AND IN THE EVENING (5-7 TIMES ONCE DAILY) (BULK) 100 each 3 025 2024 Discontinued Active Problems Problem Noted Date Diagnosed Date Intestinal metaplasia of stomach 01/25/2024 Lesion of external ear canal, left 01/25/2024 Left shoulder pain 11/22/2023 Stress incontinence of urine 10/04/2023 TIA (transient ischemic attack) 10/04/2023 Cervical myelopathy 10/04/2023 Parotid nodule 10/04/2023 Trigger middle finger of left hand 05/26/2023 Lower extremity edema 03/08/2023 Carpal tunnel syndrome 03/08/2023 Knee pain 03/08/2023 Chronic lower back pain 03/08/2023 Insomnia 03/08/2023 Health care maintenance 04/27/2022 Assessment & Plan (04/27/2022 7:05 PM EST): Immunizations: up to date Pap Smear: No longer recommended due to age. Will try and locate records of previous Paps Mammogram: 10/22/20 BIRADS 1; No longer recommended due to age. BMD: 02/12/2021 Osteopenia based on the lowest T-score value of -2.0 in the femoral neck applying World Health Organization criteria. Colonoscopy: 01/27/2021 showed polyps and diverticulosis. Repeat in 2-5 years. May not need again due to her age Coronary atherosclerosis 03/23/2022 Cobalamin deficiency 03/23/2022 Multinodular goiter 06/26/2021 Osteopenia determined by x-ray 03/22/2017 Acquired hypothyroidism 02/03/2015 Overview (10/15/2022): Changed to generic levothyroxine 75mcg on 04/20/22 WNL 04/23/22 Assessment & Plan (10/15/2022 6:44 PM EDT): Will check TSH again to confirm WNL F/u 3 months with new PCP or sooner PRN Essential hypertension 02/03/2015 Overview (10/15/2022): Taking Losartan-hydrochlorothiazide 50/12.5mg 1 tablet daily Assessment & Plan (10/15/2022 6:44 PM EDT): BP slightly elevated today 151/75 Continue meds F/u 3 months with new PCP or sooner PRN Essential tremor 02/03/2015 Gastroesophageal reflux disease without esophagi tis 02/03/2015 Mixed hyperlipidemia 02/03/2015 Mild persistent asthma 02/03/2015 Obesity 02/03/2015 Type 2 diabetes mellitus 02/03/2015 Overview (10/22/2022): Checking BG AM fasting. Ranging 70s-120s. Occasionally low reading in 50s, symptomatic. Treats with 1-2 glucose tablets Rx in April. Current regimen: - Lantus 25 units nightly. Decreased 20 units 10/15/22 - Glipizide 2.5mg w/ dinner daily. Discontinued 10/15/22 - Metformin 500 mg 2 tabs twice daily with meals A1c: 7.4 on 10/15/22 (Target </= 7.0) Glucose: 157 on 10/15/22; 259, elevated on 04/23/22 Microalbumin/Cr:Alb: Elevated 10/15/22 Lipids: slightly elevated TG on 04/23/22. Check again 10/15/22 Eye exam: Discuss next visit Dental: Discuss next visit PCV 20: 10/15/22 TDap/Td: 10/15/22 Foot exam/peripheral pulses: Discuss next visit Statin: simvastatin 40mg Rex/arb: Losartan-hydrochlorothiazide 50/12.5 mg Assessment & Plan (10/15/2022 6:41 PM EDT): Decrease lantus to 20 units and Discontinue glipizide d/t morning fasting hypoglycemia Educated Pt to continue checking sugars and if BG is < 70 take 4 glucose tablets and then check BG again in 15 minutes. Then eat a meal Received PCV 20 and Tdap 10/15/22 F/u 3 months with new PCP or sooner PRN Resolved Problems Problem Noted Date Diagnosed Date Resolved Date Obesity, morbid 07/08/2023 07/08/2023 Encounters Date Type Department Care Team Description 05/16/2024 Refill [facility] [address] [place] [address] Suyapa Doyle MD Type 2 diabetes mellitus without complication, unspecified whether nursing home insulin use ([facility]); Type 2 diabetes mellitus without complication, without long-term current use of insulin ([facility]) 05/16/2024 Refill [facility] [address], [place] [id number] Nahomy Davies MD 05/15/2024 10:15 AM EST Office Visit [facility] [address] [place] [address] Era Belle CNM Visit for pelvic exam (Primary Dx); Rash 05/15/2024 Travel 05/02/2024 Telephone [facility] [address] [place] [address] Akbar, Kyara, shredder/granulator operator Question 05/01/2024 Orders Only [facility] [address] [place] [address] Radha Hylton ANP Atherosclerosis of coronary artery of [place] heart without angina pectoris, unspecified vessel or lesion type (Primary Dx); High triglycerides 04/20/2024 Refill [facility] [address] [place] [address] Suyapa Doyle MD Iron deficiency anemia, unspecified iron deficiency anemia type 04/20/2024 Refill [facility] [address] [place] [address] Nahomy Davies MD Mixed hyperlipidemia 04/16/2024 Refill [facility] [address] [place] [address] Nahomy Davies MD Type 2 diabetes mellitus without complication, without long-term current use of insulin ([facility]); Type 2 diabetes mellitus without complication, unspecified whether 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 (CMS/[facility]); Osteopenia determined by x-ray; Iron deficiency anemia, unspecified iron deficiency anemia type; Acquired hypothyroidism; Sleep disturbance 04/13/2024 Refill [facility] [address] [place] [address] Nahomy Davies MD 03/28/2024 Travel 03/21/2024 Refill [facility] [address] [place] [address] Nahomy Davies MD Type 2 diabetes mellitus without complication, without long-term current use of insulin ([facility]); Type 2 diabetes mellitus without complication, unspecified whether nursing home insulin use (CMS/[facility]); Iron deficiency anemia, unspecified iron deficiency anemia type; Acquired hypothyroidism; Sleep disturbance; Osteopenia determined by x-ray 03/13/2024 Refill [facility] [address] [place] [address] Irene Mei MD Chronic neck pain; Shortness of breath; Type 2 diabetes mellitus with other specified complication, with long-term current use of insulin (CMS/HCC) 03/07/2024 Refill [facility] [address] [place] [address] Irene Mei MD Shortness of breath; Type 2 diabetes mellitus with other specified complication, with long-term current use of insulin (CMS/[facility]); Chronic neck pain 03/05/2024 Refill [facility] [address] [place] [address] Irene Mei MD Type 2 diabetes mellitus with other specified complication, with long-term current use of insulin (CMS/[facility]); Shortness of breath; Chronic neck pain 02/28/2024 Refill [facility] [address] [place] [address] Irene Mei MD Type 2 diabetes mellitus with other specified complication, with long-term current use of insulin ([facility]); Shortness of breath; Chronic neck pain 02/27/2024 Refill [facility] [address] [place] [address] Nahomy Davies MD Chronic neck pain (Primary Dx); Type 2 diabetes mellitus without complication, without long-term current use of insulin (CMS/[facility]); Essential hypertension; Shortness of breath 02/27/2024 Refill [facility] [address] [place] [address] Irene Mei MD Shortness of breath; Type 2 diabetes mellitus with other specified complication, with long-term current use of insulin ([facility]) 02/23/2024 Refill [facility] [address] [place] [address] Nahomy Davies MD Essential hypertension; Type 2 diabetes mellitus without complication, without long-term current use of insulin ([facility]/HCC) 02/23/2024 Refill [facility] [address] [place] [address] Irene Mei MD Type 2 diabetes mellitus with other specified complication, with long-term current use of insulin ([facility]); Shortness of breath from Last 3 Months Immunizations Name Administration Dates Next Due Hep B, adult 04/15/2014,07/03/2013,03/02/2013 Influenza High-dose Quadriva lent Preservative Free 03/08/2023 Influenza injectable quadriv alent IIV4 with preservative 03/22/2017,04/28/2016,02/03/2015 Influenza injectable quadriv alent preservative free 03/10/2018 Influenza, High Dose Seasona l, Preservative Free 01/24/2024 Influenza, IIV3, injectable 04/15/2014,0 12/21/2010,02/05/2008,12/30 Influenza, Split (incl. lucas [place] antigen) 03/02/2013 Moderna Covid-19 Vaccine 12+ 06/26/2020,05/29/19 21 Pfizer Covid-19 Vaccine 12+ 01/24/2024, Pneumococcal Conjugate PCV 13 02/03/2015 Pneumococcal Conjugate PCV 20 10/15/2022 Pneumococcal Polysaccharide PPSV23 11/08/2011, TD (adult), 2 Lf tetanus tox oid, preservative free, adsorbed 03/13/2009,07/23/1997 Tdap 10/15/2022,06/12/2012 Zoster, Recombinant 07/07/2023,05/05/2023 Zoster, live 07/31/2015 Family History Medical History Relation Name Comments asthma,DM2 Daughter Throat cancer Father heart dx Father gastric cancer,DM2 Mother breast cancer 70s Sister DM2 Son Relation Name Status Comments Daughter Father Mother Sister Son Social History Tobacco Use Types Packs/Day Years Used Date Smoking Tobacco: Never Passive Smoke Exposure: Never Smokeless Tobacco: Never Tobacco Cessation:Counseling Given: Not Answered Alcohol Use Standard Drinks/Week Comments Never 0 [...] Recorded Patient Health Questionnaire-2 Score 0 03/08/2023 Internet Access Answer Date Recorded Internet Access Q1 No 12/09/2023 Internet Access Q2 Not on file 12/09/2023 Comments No Sex and Gender Information Value Date Recorded Sex Assigned at Female 02/08/2022 10:14 AM EDT Legal Sex Female 10:14 AM EDT Gender Identity Female 02/08/2022 10:14 AM EDT Sexual Orientation Straight 02/08/2022 10 :14 AM EDT Last Filed Vital Signs Vital Sign Reading Time Taken Comments Blood Pressure 162/73 05/15/2024 10:17 AM EST Pulse 71 05/15/2024 10:17 AM EST Temperature 35.9 ??C (96.7 ??F) 05/15/2024 1 0:17 AM EST Respiratory Rate 20 05/15/2024 10:1 7 AM EST Oxygen Saturation 98% 05/15/2024 10: 17 AM EST Inhaled Oxygen Concentration - - Weight 94.3 kg (207 lb 12.8 oz) 025 10:17 AM EST Height 160 cm (5' 3 ) 05/15/2024 10:17 AM EST Body Mass Index 36.81 05/15/2024 10:17 AM EST Plan of Treatment Health Maintenance Due Date Last Done Comments Diabetes: Foot Exam 1955 Eye Exam 1956 Alcohol/Substance Use Screening 1958 RSV Patients and Patients Aged 60 years or older (1 - 1-dose 75+ series) 2021 Diabetes: Hemoglobin A1C 02/22/2024 024, 11/14/2023, 10/04/2023, Additional history exists Depression Screening 03/08/2024 03/08/2023, 04/23/19 23 SDOH Screening 10/03/2024 10/04/2023 Lipid Panel 11/13/2024 11/14/2023, 03/11, 10/19/2022, Additional history exists Diabetes: Urine Protein Screening 11/21/2024 11/22/2023, 03/22/2023, 10/19/2022, Additional history exists Tobacco Screening 05/15/2025 05/15/2024 DTaP/Tdap/Td Vaccines (3 - Td or Tdap) 10/15/2032 10/15/2022, 06/12/2012, 03/13/2009, Additional history exists Hepatitis B Vaccines Completed 04/15/2014, 07/03/2013, 03/02/2013 Pneumococcal Vaccine: 50+ Years Completed 10/15/2022, 02/03/2015, 11/08/2011, Additional history exists Hepatitis C Screening Completed 03/22/2023, 022 Zoster Vaccines Completed 07/07/2023, 04/12, 07/31/2015 COVID-19 Vaccine Completed 01/24/2024, 08/2023, 06/26/2020, Additional history exists Influenza Vaccine Completed 01/24/2024, , 03/10/2018, Additional history exists HIB Vaccines Aged Out No longer eligi ble based on patient's age to complete this topic HPV Vaccines Aged Out No longer eligi ble based on patient's age to complete this topic Hepatitis A Vaccines Aged Out No long er eligible based on patient's age to complete this topic IPV Vaccines Aged Out No longer eligi ble based on patient's age to complete this topic Meningococcal Vaccine Aged Out No renu sher eligible based on patient's age to complete this topic RSV under 20 months Aged Out No longe r eligible based on patient's age to complete this topic Rotavirus Vaccines Aged Out No longer eligible based on patient's age to complete this topic Procedures Procedure Name Priority Date/Time Associated Diagnosis Comments XR ELBOW 1-2 VIEWS RIGHT Routine 05/23/2024 6:45 PM EST XR ELBOW 3+ VIEWS RIGHT Routine 05/23/2024 1:39 PM EST XR KNEE 3 VIEWS RIGHT Routine 05/23/2024 1:39 PM EST XR FOREARM 2 VIEWS RIGHT Routine 05/23/2024 1:39 PM EST ALBUMIN, RANDOM URINE W/CREATININE Routine 11/22/2023 12:40 PM EDT POCT GLYCATED HEMOGLOBIN, TOTAL Routine 11/22/2023 10:45 AM EDT Type 2 diabetes mellitus with hypoglycemia without coma, with long-term current use of insulin (CMS/HCC) LIPID PANEL, STANDARD Routine 11/14/2023 10:00 AM EDT Type 2 diabetes mellitus with other specified complication, with long-term current use of insulin (CMS/HCC) HEPATITIS C AB W/REFL TO HCV RNA, QN, PCR Routine 03/22/2023 8:23 AM EST Annual physical exam from Last 3 Months or Most Recently Relevant to Health Maintenance Results * XR Elbow 1-2 Views Right (05/23/2024 6:45 PM EST) Anatomical Region Laterality Modality Upper Extremities, Elbow Right Radiogr aphic Imaging 05/23/2024 6:45 PM EST Narrative 05/23/2024 6:47 PM EST ? [facility] ?[address] ?[place] [address] ?XRay Report ? Signed ? Patient: Arlette Dias ?MR#: [id number] ?? [id number] ? : 1945 ?Acct:[id number] ? Age/Sex: 79 / F ?ADM Date: 05/23/24 ? Loc: HO.ED ? Attending Dr: ? Ordering Physician: Jeannie Moulton ?? Date of Service: 05/23/24 ?? Procedure(s): XR elbow RT 2V ?? Accession Number(s): [id number] ? cc: Nahomy Davies MD; Jeannie Moulton ? CLINICAL HISTORY: lateral view ? 1 view right elbow ? Comparison: CR/SR - XR ELBOW RT MIN 3V - 05/23/24 14:00 EST ? Findings: ?? Bones intact. No dislocations. ?? No significant loss of joint space, osteophytes, or erosions. ?? No joint effusion. ?? No radiopaque foreign body. ? IMPRESSION: ?? No definite fracture. If there is high clinical concern, follow-up imaging ?? would be recommended. ? This document has been electronically signed by: Daniel Bo MD on ?? 05/23/2024 18:45:07 ? Dictated By: ?Daniel Bo MD ? Signed By: ?<Electronically signed by Daniel Bo MD in OV> ? 05/23/241845 ? DD/ 44 ? TD/TT: 05/23/241844 ? 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 Procedure Note Donabbyter, Image - 05/23/[address] [address] XRay Report Signed Patient: Gifty DiasR#: [id number] : 1945cct:[id number] Age/Sex: 79 / FADM Date: 05/23/24 Loc: HO.ED Attending Dr: Ordering Physician: Jeannie Moulton Date of Service: 05/23/24 Procedure(s): XR elbow RT 2V Accession Number(s): [id number] cc: Nahomy Davies MD; Jeannie Moulton CLINICAL HISTORY: lateral view 1 view right elbow Comparison: CR/SR - XR ELBOW RT MIN 3V - 05/23/24 14:00 EST Findings: Bones intact. No dislocations. No significant loss of joint space, osteophytes, or erosions. No joint effusion. No radiopaque foreign body. IMPRESSION: No definite fracture. If there is high clinical concern, follow-up imaging would be recommended. This document has been electronically signed by: Daniel Bo MD on 05/23/2024 18:45:07 Dictated By: Daniel Bo MD Signed By: <Electronically signed by Daniel Bo MD in OV> 05/23/241845 DD/ 44 TD/TT: 05/23/241844 Fruit Harvester Machine Operator: us [facility] External Provider IMG XR PROCEDURES Final Result * XR Knee 3 Views Right (05/23/2024 1:39 PM EST) Anatomical Region Laterality Modality Lower Extremities, Knee Right Radiogra phic Imaging 05/23/2024 1:39 PM EST Narrative 05/23/2024 2:12 PM EST ? [facility] ?[address] ?[place] [address] ?XRay Report ? Signed ? Patient: Sampson Louie,Arlette ?MR#: [id number] ?? [id number] ? : 1945 ?Acct:[id number] ? Age/Sex: 79 / F ?ADM Date: 05/23/24 ? Loc: HO.ED ? Attending Dr: ? Ordering Physician: Jeannie Moulton ?? Date of Service: 05/23/24 ?? Procedure(s): XR knee RT 3V ?? Accession Number(s): [id number] ? cc: Nahomy Davies MD; Jeannie Moulton ? EXAMINATION: ?? XR KNEE, RIGHT ? CLINICAL INFORMATION: ?? fall ? COMPARISON: ?? December 18, 2020 ? TECHNIQUE: ?? Four views of the right knee. ? FINDINGS: ?? No acute cortical disruption or malalignment. ?? Joint space narrowing involving mostly the medial compartment. No ?? suprapatellar bursa joint effusion. No lytic or blastic lesions. ?? Osteopenia versus osteoporosis. Vascular calcifications. ? XR/XR knee RT 3V ?? IMPRESSION: ?? Bicompartmental strength sclerosis without acute fracture or ?? dislocation. ? Electronically signed by: ??Xander Hurt MD ??05/23/2024 02:10 PM ?? EST RP ? Dictated By: ?Xander Castellanos MD ? Signed By: ?<Electronically signed by Xander Villegas MD in OV> ? 05/23/24 1410 ? DD/ 1339 ? TD/TT: 05/23/24 1404 ? 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 Procedure Note Roger Arora - 05/23/[address] [address] XRay Report Signed Patient: Adrián LouieLbClarice#: [id number] : 7Acct:[id number] Age/Sex: 79 / FADM Date: 05/23/24 Loc: HO.ED Attending Dr: Ordering Physician: Jeannie Moulton Date of Service: 05/23/24 Procedure(s): XR knee RT 3V Accession Number(s): [id number] cc: Nahomy Davies MD; Jeannie Moulton EXAMINATION: XR KNEE, RIGHT CLINICAL INFORMATION: fall COMPARISON: December 18, 2020 TECHNIQUE: Four views of the right knee. FINDINGS: No acute cortical disruption or malalignment. Joint space narrowing involving mostly the medial compartment. No suprapatellar bursa joint effusion. No lytic or blastic lesions. Osteopenia versus osteoporosis. Vascular calcifications. XR/XR knee RT 3V IMPRESSION: Bicompartmental strength sclerosis without acute fracture or dislocation. 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 [facility] ?[address] ?[place] [address] ?XRay Report ? Signed ? Patient: Sampson Louie,Arlette ?MR#: MM ?? [id number] ? : 1945 ?Acct:[id number] ? Age/Sex: 79 / F ?ADM Date: 02/12/25 ? Loc: HO.ED ? Attending Dr: ? Ordering Physician: Jeannie Moulton ?? Date of Service: 05/23/24 ?? Procedure(s): XR forearm RT 2V ?? Accession Number(s): [id number] ? cc: Nahomy Davies MD; Jeannie Moulton ? EXAMINATION: ?? XR FOREARM, RIGHT ? CLINICAL INFORMATION: ?? fall ? COMPARISON: ?? None available. ? TECHNIQUE: ?? AP and lateral views of the right forearm were obtained. ? FINDINGS: ?? No acute cortical disruption. No metallic or radiopaque foreign body. ?? No subcutaneous emphysema. No lytic or blastic lesions.. ? XR/XR forearm RT 2V ?? IMPRESSION: ?? No acute fracture. ? Electronically signed by: ??Xander Hurt MD ??05/23/2024 02:08 PM ?? EST RP ? Dictated By: ?Xander Castellanos MD ? Signed By: ?<Electronically signed by Xander Villegas MD in OV> ? 05/23/24 1408 ? DD/ 1339 ? TD/TT: 05/23/24 1404 ? 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 Procedure Note Ulysses, Image - 05/23/[address] [address] XRay Report Signed Patient: Gifty DiasR#: [id number] : 1945cct:[id number] Age/Sex: 79 / FADM Date: 05/23/24 Loc: HO.ED Attending Dr: Ordering Physician: Jeannie Moulton Date of Service: 05/23/24 Procedure(s): XR forearm RT 2V Accession Number(s): [id number] cc: Nahomy Davies MD; Jeannie Moulton EXAMINATION: XR FOREARM, RIGHT CLINICAL INFORMATION: fall COMPARISON: None available. TECHNIQUE: AP and lateral views of the right forearm were obtained. FINDINGS: No acute cortical disruption. No metallic or radiopaque foreign body. No subcutaneous emphysema. No lytic or blastic lesions.. XR/XR forearm RT 2V IMPRESSION: No acute fracture. Electronically signed by: Xander Hurt MD 05/23/2024 02:08 PM EST RP Dictated By: Xander Castellanos MD Signed By: <Electronically signed by Xander Villegas MDin OV> 05/23/24 1408 DD/ 1339 TD/TT: 05/23/24 1404 Fruit Harvester Machine Operator: [facility] External Provider IMG XR PROCEDURES Final Result * XR Elbow 3+ Views Right (05/23/2024 1:39 PM EST) Anatomical Region Laterality Modality Upper Extremities, Elbow Right Radiogr aphic Imaging 05/23/2024 1:39 PM EST Narrative 05/23/2024 2:13 PM EST ? [facility] ?[address] ?[place] [address] ?XRay Report ? Signed ? Patient: Arlette Dias ?MR#: [id number] ?? [id number] ? : 1945 ?Acct:[id number] ? Age/Sex: 79 / F ?ADM Date: 05/23/24 ? Loc: HO.ED ? Attending Dr: ? Ordering Physician: Jeannie Moulton ?? Date of Service: 05/23/24 ?? Procedure(s): XR elbow RT min 3V ?? Accession Number(s): [id number] ? cc: Nahomy Davies MD; Jeannie Moulton ? EXAMINATION: ??XR ELBOW 3 VIEWS RIGHT ? HISTORY: fall ? COMPARISON: Correlation is made with plain films of the forearm ?? performed simultaneously. ? FINDINGS: ? AP and oblique views of the right elbow are submitted. ??Osseous ?? mineralization is normal. ??No fracture is seen, although evaluation is ?? limited without a true lateral view of the elbow. ??The generalized ?? joint spaces are preserved. ??The soft tissues are unremarkable. ? XR/XR elbow RT min 3V ?? IMPRESSION: ? Limited examination, as no true lateral view of the elbow was obtained. ?? No definite fracture is seen, although if there remains clinical ?? concern for elbow fracture, a true lateral view is recommended. ? Electronically signed by: ??Grzegorz Borden MD ??05/23/2024 02:10 PM EST ?? RP ? Dictated By: ?Grzegorz Borden MD ? Signed By: ?<Electronically signed by Grzegorz Borden MD in OV> ?05/23/24 1410 ? DD/ 1339 ? TD/TT: 05/23/24 1404 ? 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 Procedure Note Donotkumarinterpreter, Image - 05/23/[address] [address] XRay Report Signed Patient: Gifty DiasR#: [id number] : 1945cct:[id number] Age/Sex: 79 / FADM Date: 05/23/24 Loc: HO.ED Attending Dr: Ordering Physician: Jeannie Moulton Date of Service: 05/23/24 Procedure(s): XR elbow RT min 3V Accession Number(s): [id number] cc: Nahomy Davies MD; Jeannie Moulton EXAMINATION: XR ELBOW 3 VIEWS RIGHT HISTORY: fall COMPARISON: Correlation is made with plain films of the forearm performed simultaneously. FINDINGS: AP and oblique views of the right elbow are submitted. Osseous mineralization is normal. No fracture is seen, although evaluation is limited without a true lateral view of the elbow. The generalized joint spaces are preserved. The soft tissues are unremarkable. XR/XR elbow RT min 3V IMPRESSION: Limited examination, as no true lateral view of the elbow was obtained. No definite fracture is seen, although if there remains clinical concern for elbow fracture, a true lateral view is recommended. Electronically signed by: Grzegorz Borden MD 05/23/2024 02:10 PM EST Dictated By: Grzegorz Borden MD Signed By: <Electronically signed by Grzegorz Borden MD in OV> 05/23/24 1410 DD/ 1339 TD/TT: 05/23/24 1404 Fruit Harvester Machine Operator: [facility] External Provider IMG XR PROCEDURES Final Result * (ABNORMAL) Albumin, Random Urine W/Creatinine (11/22/2023 12:40 PM EDT) Creatinine, Urine 66.52 mg/dL [facility] Microalbumin Urine 23.0 mg/L [facility] Microalbum Creatinine Ratio Ur 34.5(H) <30 ug/mg cr [facility] Comment:Albumin/Creatinine R atio Reference Ranges: Normal: < 30 ug/mg creatinine Microalbuminuria: 30 - 300 ug/mg creatinineClinical Albuminuria: > 300 ug/mg creatinine 11/22/2023 12:4 0 PM EDT 11/22/2023 5:12 PM EDT Nahomy Kessler MD LAB URINE ORDERAB LES Final Result [facility] [address] [place] [phone] * (ABNORMAL) POCT HGB A1C (11/22/2023 10:45 AM EDT) Hemoglobin A1C 8.0(A) 4.0 - 6.0 % QC Media Lot # [id number] Lot# Expiration Date Blood 11/22/2023 10:4 5 AM EDT us Nahomy Kessler MD POINT OF CARE ADWOA T ENTER/EDIT ORDERABLES Final Result * (ABNORMAL) Lipid Panel, Standard (11/14/2023 10:00 AM EDT) Triglycerides 293(H) <150 mg/dL [facility] Comment:Desirable Triglyceri de: less than 150 mg/dLBorderline High Triglyceride 150-199 mg/dLHigh Triglyceride: 200-499 mg/dLVery High Triglyceride: greater than or equal to 5OO mg/dL Cholesterol 135 <200 mg/dL [facility] Comment:Desirable Cholestero l: less than 200 mg/dLBorderline High Cholesterol: 200-239 mg/dLHigh Cholesterol: greater than 239 mg/dL LDL Cholesterol Calculated 40 <100 mg/dL [facility] Comment:Desirable LDL: less than 100 mg/dLNear Optimal/Above Optimal LDL: 110- 129 mg/dLBorderline High LDL: 130-159 mg/dLHigh LDL: 160-189 mg/dLVery High LDL: greater than or equal to 190 mg/dL HDL Cholesterol 37(L) >40 mg/dL [facility] Comment:Desirable HDL: great er than 40 mg/dL Note: This HDL assay may give artificially low results in patients with liver disease. Blood Venous blood specimen / Unknown 11/14/2023 10:00 AM EDT 11/14/2023 11:16 AM EDT us Nahomy Kessler MD LAB BLOOD ORDERAB LES Final Result Performing Organization Address [facility]/ZIP Co de Phone Number [facility] [address] [place] [address] [phone] * Hepatitis C Antibody with Reflex to HCV, RNA, Quantitative, Real-Time PCR (03/22/2023 8:23 AM EST) Hepatitis C Antibody Nonreactive Nonreactive [facility] Comment:Antibodies to HCV no t detected; does not exclude early acuteHCV infection. Blood Venous blood specimen / Unknown 03/22/2023 8:23 AM EST 03/22/2023 11:12 AM EST us Nahomy Kessler MD LAB BLOOD ORDERAB LES Final Result [facility] [address] [place] [phone] from Last 3 Months or Most Recently Relevant to Health Maintenance Insurance [facility] * Guarantor: Arlette Dominguez Account Type Relation to Patient Date of Phone Billing Address Personal/Family Self [address] [phone] Care Teams Glue Bone Drier Relationship Specialty Start Date End Date Nahomy Davies MD [address] [place] [address] PCP - General Internal Medicine 01/13/23
--- OUTSIDE RECORDS SUMMARY | 2024-05-23 22:50 | XMS_ITS | Encounter Summary ---
Author Organization [facility] Address [address] [facility] 7t [place] [address] Care Team Providers Care Toll Test Worker Name Role Phone Nancy Larose Primary Care Provider +1- [phone] Nahomy Davies MD Primary Care Pro vider Reason for Visit * Reason Comments Med Refill Encounter Details Date Type Department Care Team (Late st Contact Info) Description 09/23/2022 Refill [facility] MEDICINE [address] [place] [address] Nancy Larose FNP [address] [place] [address] Dept [place] [address] Shortness of breath Social History Tobacco Use Types Packs/Day Years Used Date Smoking Tobacco: Never Smokeless Tobacco: Never Alcohol Use Standard Drinks/Week Comments Never 0 (1 standard drink = 0.6 oz pur e alcohol) Depression Answer Date Recorded Patient Health Questionnaire-9 Score 0 04/23/2022 Depression Answer Date Recorded Patient Health Questionnaire-2 Score 0 04/23/2022 Comments Unknown Sex and Gender Information Value Date Recorded [...] Time PHQ-9 Depression Total Score: 0 04/23/19 23 9:18 AM EST documented as of this encounter Care Teams Toll Test Worker Relationship Specialty Start Date End Date Nancy Larose FNP PCP - General Family Medicine 12/08/21 01/12/23 Nahomy Davies MD [address] [place] [phone] PCP - General Internal Medicine 01/13/23 documented as of this encounter
--- OUTSIDE RECORDS SUMMARY | 2024-05-23 22:50 | XMS_ITS | Encounter Summary ---
Author Organization [employer] Address [address] [facility] 7t [place] [address] Care Team Providers Care Cone Picker Name Role Phone Nahomy Davies MD Primary Care Pro vider Reason for Visit * Reason Comments Med Refill Encounter Details Date Type Department Care Team ([facility] st Contact Info) Description 02/27/2024 Refill [facility] MEDICINE [address] [place], [place] [phone] Irene Mei MD [address] [place], [place] [phone] Shortness of breath; Type 2 diabetes mellitus with other specified complication, with long-term current use of insulin ([facility]) Social History Tobacco Use Types Packs/Day Years [...] encounter Visit Diagnoses Diagnosis Shortness of breath Type 2 diabetes mellitus with other specified complication, with long-term current use of insulin ([facility]) documented in this encounter Additional Health Concerns Assessment Noted Time PHQ-9 Depression Total Score: 0 04/23/19 9:18 AM EST documented as of this encounter Care Teams Cone Picker Relationship Specialty Start Date End Date Nahomy Davies MD [address] [place] [phone] PCP - General Internal Medicine 01/13/23 documented as of this encounter
--- OUTSIDE RECORDS SUMMARY | 2024-05-23 22:50 | XMS_ITS | Encounter Summary ---
Author Organization [employer] Address [address] [facility] 7t [place] [address] Care Team Providers Care Acetylene Torch Solderer Name Role Phone Nahomy Davies MD Primary Care Pro vider Reason for Visit * Reason Comments Med Refill Encounter Details Date Type Department Care Team ([facility] st Contact Info) Description 06/06/2023 Refill [facility] MEDICINE [address] [place], [place] [phone] Nahomy Davies MD 230 [place] [address] Social History Tobacco Use Types Packs/Day Years [...] documented as of this encounter Care Teams Acetylene Torch Solderer Relationship Specialty Start Date End Date Nahomy Davies MD [address] [place] [address] PCP - General Internal Medicine 01/13/23 documented as of this encounter
--- OUTSIDE RECORDS SUMMARY | 2024-05-23 22:50 | XMS_ITS | Encounter Summary ---
Author Organization [employer] Address [address] [facility] 7t [place] [address] Care Team Providers Care Marketing Development Manager Name Role Phone Nahomy Davies MD Primary Care Pro vider Reason for Visit * Reason Comments Med Refill Encounter Details Date Type Department Care Team ([facility] st Contact Info) Description 02/02/2024 Refill [facility] MEDICINE [address] [place], [place] [phone] Nahomy Davies MD 230 [place] [address] Iron deficiency anemia, unspecified iron deficiency anemia type; Mixed hyperlipidemia Social History Tobacco Use Types Packs/Day Years [...] as of this encounter Visit Diagnoses Diagnosis Iron deficiency anemia, unspecified iron deficiency anemia type Mixed hyperlipidemia documented in this encounter Additional Health Concerns Assessment Noted Time PHQ-9 Depression Total Score: 0 04/23/19 23 9:18 AM EST documented as of this encounter Care Teams Marketing Development Manager Relationship Specialty Start Date End Date Nahomy Davies MD [address] [place] [phone] PCP - General Internal Medicine 01/13/23 documented as of this encounter
--- OUTSIDE RECORDS SUMMARY | 2024-05-23 22:50 | XMS_ITS | Encounter Summary ---
Author Organization [employer] Address [address] [facility] 7t [place] [address] Care Team Providers Care Winery Cellar Hand Name Role Phone Nahomy Davies MD Primary Care Pro vider Reason for Visit * Reason Comments Med Refill Encounter Details Date Type Department Care Team ([facility] st Contact Info) Description 11/07/2023 Refill [facility] MEDICINE [address] [place] [address] Nahomy Davies MD 230 [place] [address] Type 2 diabetes mellitus without complication, without long-term current use of insulin ([facility]) Social History Tobacco Use Types Packs/Day Years [...] complication, without long-term current use of insulin ([facility]) documented in this encounter Additional Health Concerns Assessment Noted Time PHQ-9 Depression Total Score: 0 04/23/19 9:18 AM EST documented as of this encounter Care Teams Winery Cellar Hand Relationship Specialty Start Date End Date Nahomy Davies MD [address] [place] [phone] PCP - General Internal Medicine 01/13/23 documented as of this encounter
--- OUTSIDE RECORDS SUMMARY | 2024-05-23 22:50 | XMS_ITS | Encounter Summary ---
Author Organization [employer] Address [address] [facility] [address] 7[address] [place] [address] Care Team Providers Care Drafter Civil (Cad) Name Role Phone Nahomy Davies MD Primary Care Pro vider Reason for Visit * Reason Onset Date Comments Medication Question 05/02/2024 Encounter Details Date Type Department Care Team ([facility] st Contact Info) Description 05/02/2024 Telephone [facility] MEDICINE [address] [place], [place] [phone] Kyara Akbar RN Medication Question Social History Tobacco Use Types Packs/Day Years [...] AM EDT documented as of this encounter Miscellaneous Notes * Telephone Encounter - Yoana Laws RN - 05/04/2024 3:41 PM EST Telephone call to regarding the previous messages . No answer. Message was left to return call to the diamond team nurses . * Telephone Encounter - Vincenzo Helms - 05/03/2024 1:25 PM EST Tc from pt returning call regarding message prior. * Telephone Encounter - Kyara Akbar RN - 05/03/2024 10:16 AM EST Telephone call x2 to pt on home phone, no answer, left voicemail. Called mobile/work number on file, no answer, voicemail machine started and then cut off. Will task to call 3rd time. * Telephone Encounter - Kyara Akbar RN - 05/02/2024 9:04 AM EST Telephone call to pt on mobile phone, no answer, left voicemail. Called home phone on file, pt's daughter answered, not on HIPAA form, informed that [facility] would call back. Will task to call again. -- Received notice from patient's insurance company that omega-3 would no longer be covered by her insurance. I do think that an alternate medication - Vascepa - which is a good choice for her for high triglycerides and atherosclerosis - should be approved without a prior authorization. Please let me know if patient is willing to switch and I will send Rx for next month to take place of omega- 3's going forward. documented in this encounter Plan of Treatment Not on file documented as of this encounter Visit Diagnoses Not on filedocumented in this encounter Additional Health Concerns Assessment Noted Time PHQ-9 Depression Total Score: 0 04/23/19 9:18 AM EST documented as of this encounter Care Teams Drafter Civil (Cad) Relationship Specialty Start Date End Date Nahomy Davies MD [address] [place] [phone] PCP - General Internal Medicine 01/13/23 documented as of this encounter
--- OUTSIDE RECORDS SUMMARY | 2024-05-23 22:50 | XMS_ITS | Encounter Summary ---
Author Organization [employer] Address [address] [facility] 7t [place] [address] Care Team Providers Care Vocational Instructor Name Role Phone Nahomy Davies MD Primary Care Pro vider Reason for Visit * Reason Comments Med Refill Encounter Details Date Type Department Care Team ([facility] st Contact Info) Description 06/23/[address] [facility] MEDICINE [address] [place] [address] Nahomy Davies MD 230 [place] [address] Social History Tobacco Use Types Packs/Day Years [...] documented as of this encounter Care Teams Vocational Instructor Relationship Specialty Start Date End Date Nahomy Davies MD [address] [place] [phone] PCP - General Internal Medicine 01/13/23 documented as of this encounter
--- OUTSIDE RECORDS SUMMARY | 2024-05-23 22:50 | XMS_ITS | Encounter Summary ---
Author Organization [employer] Address [address] [facility] 7t [place] [address] Care Team Providers Care Electronic Equipment Maint Tech Name Role Phone Nahomy Davies MD Primary Care Pro vider Reason for Visit * Reason Comments Med Refill Encounter Details Date Type Department Care Team ([facility] st Contact Info) Description 10/12/2023 Refill [facility] [address] [place], [place] [phone] Nahomy Davies MD 230 [place] [address] Iron deficiency anemia, unspecified iron deficiency anemia type Social History Tobacco Use Types Packs/Day Years [...] deficiency anemia, unspecified iron deficiency anemia type documented in this encounter Additional Health Concerns Assessment Noted Time PHQ-9 Depression Total Score: 0 04/23/19 9:18 AM EST documented as of this encounter Care Teams Electronic Equipment Maint Tech Relationship Specialty Start Date End Date Nahomy Davies MD [address] [place] [phone] PCP - General Internal Medicine 01/13/23 documented as of this encounter
--- OUTSIDE RECORDS SUMMARY | 2024-05-23 22:50 | XMS_ITS | Encounter Summary ---
Author Organization [employer] Address [address] [facility] 7t [place] [address] Care Team Providers Care Substitute Teacher Name Role Phone Nahomy Davies MD Primary Care Pro vider Reason for Visit * Reason Comments Med Refill Encounter Details Date Type Department Care Team ([facility] st Contact Info) Description 01/22/2024 Refill [facility] MEDICINE [address] [place] [address] Nahomy Davies MD 230 [place] [address] Social History Tobacco Use Types Packs/Day Years [...] documented as of this encounter Care Teams Substitute Teacher Relationship Specialty Start Date End Date Nahomy Davies MD [address] [place] [phone] PCP - General Internal Medicine 01/13/23 documented as of this encounter
--- OUTSIDE RECORDS SUMMARY | 2024-05-23 22:50 | XMS_ITS | Encounter Summary ---
Author Organization [employer] Address [address] [facility] 7t [place] [address] Care Team Providers Care Stewardesses Teacher Name Role Phone Nahomy Davies MD Primary Care Pro vider Reason for Visit * Reason Comments Med Refill Encounter Details Date Type Department Care Team ([facility] st Contact Info) Description 05/16/2024 Refill [facility] [address] [place], [place] [phone] Nahomy Davies MD 230 [place], [place] [phone] Social History Tobacco Use Types Packs/Day Years [...] documented as of this encounter Care Teams Stewardesses Teacher Relationship Specialty Start Date End Date Nahomy Davies MD [address] [place] [phone] PCP - General Internal Medicine 01/13/23 documented as of this encounter
--- OUTSIDE RECORDS SUMMARY | 2024-05-23 22:50 | XMS_ITS | Encounter Summary ---
Author Organization [employer] Address [address] [facility] 7t [place] [address] Care Team Providers Care Poultryman Name Role Phone Nahomy Davies MD Primary Care Pro vider Reason for Visit * Reason Comments Med Refill Encounter Details Date Type Department Care Team ([facility] st Contact Info) Description 01/31/2024 Refill [facility] MEDICINE [address] [place], [place] [phone] Nahomy Davies MD 230 [place] [address] Iron deficiency anemia, unspecified iron deficiency anemia [...] documented as of this encounter Care Teams Poultryman Relationship Specialty Start Date End Date Nahomy Davies MD [address] [place] [phone] PCP - General Internal Medicine 01/13/23 documented as of this encounter
--- OUTSIDE RECORDS SUMMARY | 2024-05-23 22:50 | XMS_ITS | Encounter Summary ---
Author Organization [employer] Address [address] [facility] 7t [place] [address] Care Team Providers Care Federal Appellate Clerk Name Role Phone Nancy Larose Rianna WOOLING MACHINE OPERATOR Primary Care Provider +1- [phone] Nahomy Davies MD Primary Care Pro vider Reason for Visit * Reason Comments Med Refill Encounter Details Date Type Department Care Team (Late st Contact Info) Description 08/30/2022 Refill [facility] MEDICINE [address] [place] [address] Anamaria Herzog FNP [address] [place], [place] [phone] Type 2 diabetes mellitus with other specified complication, with long-term current use of insulin (CMS/HCC) Social History Tobacco Use Types Packs/Day Years [...] Visit Diagnoses Diagnosis Type 2 diabetes mellitus with other specified complication, with long-term current use of insulin (CMS/HCC) documented in this encounter Additional Health Concerns Assessment Noted Time PHQ-9 Depression Total Score: 0 04/23/19 9:18 AM EST documented as of this encounter Care Teams Federal Appellate Clerk Relationship Specialty Start Date End Date Nancy Larose FNP PCP - General Family Medicine 12/08/21 01/12/23 Nahomy Davies MD [address] [place] [phone] PCP - General Internal Medicine 01/13/23 documented as of this encounter
--- OUTSIDE RECORDS SUMMARY | 2024-05-23 22:50 | XMS_ITS | Encounter Summary ---
Author Organization [employer] Address 75 [facility] 7t [place] [address] Care Team Providers Care Band Top Maker Name Role Phone Nahomy Davies MD Primary Care Pro vider Reason for Visit * Reason Comments Med Refill Encounter Details Date Type Department Care Team ([facility] st Contact Info) Description 04/20/2024 Refill [facility] CHC MED & PEDS [address] [place], [place] [phone] Nahomy Davies MD [address] [place] [address] Mixed hyperlipidemia Social History Tobacco Use Types [...] as of this encounter Visit Diagnoses Diagnosis Mixed hyperlipidemia documented in this encounter Additional Health Concerns Assessment Noted Time PHQ-9 Depression Total Score: 0 04/23/19 9:18 AM EST documented as of this encounter Care Teams Band Top Maker Relationship Specialty Start Date End Date Nahomy Davies MD [address] [place] [phone] PCP - General Internal Medicine 01/13/23 documented as of this encounter
--- OUTSIDE RECORDS SUMMARY | 2024-05-23 22:50 | XMS_ITS | Encounter Summary ---
Author Organization [employer] Address 75 [facility] 7t [place] [address] Care Team Providers Care Loader Unloader Name Role Phone Nahomy Davies MD Primary Care Pro vider Reason for Visit * Reason Onset Date Comments Medication Question 03/25/2023 Encounter Details Date Type Department Care Team ([facility] st Contact Info) Description 03/25/2023 Telephone [facility] MEDICINE [address] [place] [address] Nahomy Davies MD [address] [place] [address] Medication Question Social History Tobacco Use Types [...] Patient Health Questionnaire-2 Score 0 03/08/2023 Comments Unknown Sex and Gender Information Value Date Recorded Sex Assigned at Female 02/08/2022 10:14 AM EDT Legal Sex Female 10:14 AM EDT Gender Identity Female 02/08/2022 10:14 AM EDT Sexual Orientation Straight 02/08/2022 10 :14 AM EDT documented as of this encounter Miscellaneous Notes * Telephone Encounter - Karmen Lee - 03/25/2023 10:42 AM EST Tc from pharmacy requesting a call back or resend of the script for FreeStyle lancets with clarifications on directions. [phone] ext [phone] documented in this encounter Plan of Treatment Not on file documented as of this encounter Visit Diagnoses Not on filedocumented in this encounter Additional Health Concerns Assessment Noted Time PHQ-9 Depression Total Score: 0 04/23/19 9:18 AM EST documented as of this encounter Care Teams Loader Unloader Relationship Specialty Start Date End Date Nahomy Davies MD [address] [place] [phone] PCP - General Internal Medicine 01/13/23 documented as of this encounter
--- OUTSIDE RECORDS SUMMARY | 2024-05-23 22:50 | XMS_ITS | Encounter Summary ---
Author Organization [employer] Address 75 [facility] 7t [place] [address] Care Team Providers Care Sheet Rock Sander Name Role Phone Nahomy Davies MD Primary Care Pro vider Reason for Referral * Consultation (Urgent) - Authorized Specialty Diagnoses / Procedures Referred By Controsa elena t Referred To Contact Family Medicine Diagnoses Era Stanley CNM [address] [place] [address] Phone: tel: fax: Referral ID Status Reason Start Date Expiration Date Visits Requested Visits Authorized [id number] Authorized Specialty Services Required 05/15/2024 05/15/2025 1 1 Reason for Visit * Reason Comments Gynecologic Exam Encounter Details Date Type Department Care Team ([facility] Contact Info) Description 05/15/2024 10:15 AM EST Office Visit [facility] MEDICINE [address] [place], [place] [phone] Era Belle CNM [address] [place], [place] [phone] Visit for pelvic exam (Primary Dx); Rash Social History Tobacco Use Types Packs/Day Years [...] AM EDT documented as of this encounter Last Filed Vital Signs Vital Sign Reading [...] Mass Index 36.81 05/15/2024 10:17 AM EST documented in this encounter Progress Notes * Era Belle CNM - 05/15/2024 10:15 AM EST Subjective Patient ID: Arlette Dominguez is a 78 y.o. 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 No further paps needed. DEXA scan 08/2023 t-score FN -2.0. MammogramBIRADS 1, cat b 05/2023. She has upcoming mammogram appointment. History of anal prolapse, treated with anoplasty. Hysterectomy for unknown indication in her 40s, she thinks ovaries remain. No abnormal bleeding. Lives alone, feels safe at home. Daughter comes regularly to help with chores. No personal fracture, no parental hip fracture. Not sexually active in years, no current partner. Chronic constipation, no bleeding/pain with bowel movements. Review of Systems Gastrointestinal: Positive for constipation. Negative for anal bleeding, blood in stool and diarrhea. Genitourinary: Negative for dyspareunia, dysuria, frequency, genital sores, hematuria, menstrual problem, pelvic pain, urgency, vaginal bleeding, vaginal discharge and vaginal pain. No abnormal pap, no abnormal bleeding, no breast pain, no breast mass, no nipple discharge Skin: Positive for rash. Objective BP (!) 162/73 (BP Location: Left arm, Patient Position: Sitting, BP Cuff Size: Large adult) Pulse71 Temp 96.7 ??F (35.9 ??C) (Temporal) Resp 20 Ht 5' 3 (1.6 m) Wt 207 lb 12.8 oz (94.3 kg) SpO2 98% BMI 36.81 kg/m?? Physical Exam Constitutional: Appearance: Normal appearance. Chest: Breasts: Right: Normal. No swelling, bleeding, inverted nipple, mass, nipple discharge, skin change or tenderness. Left: Normal. No swelling, bleeding, inverted nipple, mass, nipple discharge, skin change or tenderness. Comments: Numerous hyperpigmented lesions under both breasts with some confluence of lesions. ? Seborrheic keratosis Genitourinary: General: Normal vulva. Labia: Right: No rash, tenderness, lesion or injury. Left: No rash, tenderness, lesion or injury. Vagina: Normal. No signs of injury and foreign body. No vaginal discharge, erythema, tenderness, bleeding or lesions. Cervix: Normal. No cervical motion tenderness, discharge, friability, lesion, erythema, cervical bleeding or eversion. Uterus: Absent. Adnexa: Right adnexa normal and left adnexa normal. Right: No mass, tenderness or fullness. Left: No mass, tenderness or fullness. Comments: Ovaries non palpable bilaterally. Good tone with Kegels, no prolapse with Valsalva. Lymphadenopathy: Upper Body: Right upper body: No supraclavicular or axillary adenopathy. Left upper body: No supraclavicular or axillary adenopathy. Neurological: Mental Status: She is alert. Psychiatric: Mood and Affect: Mood normal. Behavior: Behavior normal. Assessment/Plan Diagnoses and all orders for this visit: Visit for pelvic exam Has upcoming mammogram appt. DEXA next year, sooner if new risk factors. Report bleeding. No further paps indicated based on age, no prior abnormal paps. Rash - Referral to [facility] Derm Skin Adult; Future Suggestive of seborrheic keratoses, hasn't had derm evaluation prior. Will refer. documented in this encounter Plan of Treatment Scheduled Referrals Name Type Priority Associated Diagnoses Orde r Schedule Referral to [facility] Derm Skin Adult Outpatient Referral Urgent Rash Expected: 05/15/2024 (Approximate), Expires: 05/15/2025 documented as of this encounter Visit Diagnoses Diagnosis Visit for pelvic exam- Primary Rash Rash and other nonspecific skin eruption documented in this encounter Additional Health Concerns Assessment Noted Time PHQ-9 Depression Total Score: 0 04/23/19 9:18 AM EST documented as of this encounter Care Teams Sheet Rock Sander Relationship Specialty Start Date End Date Nahomy Davies MD [address] [place] [phone] PCP - General Internal Medicine 01/13/23 documented as of this encounter
--- OUTSIDE RECORDS SUMMARY | 2024-05-23 22:50 | XMS_ITS | Encounter Summary ---
Author Organization [employer] Address [address] [facility] [address] 7t [place] [address] Care Team Providers Care Child Psychology Teacher Name Role Phone Nahomy Davies MD Primary Care Pro vider Reason for Visit * Reason Comments Med Refill Encounter Details Date Type Department Care Team ([facility] st Contact Info) Description 05/16/2024 Refill [facility] CH[facility] MED & PEDS [address] [place], [place] [phone] Suyapa Doyle MD [address] [place] [address] Type 2 diabetes mellitus without complication, unspecified whether mcfp insulin use ([facility]); Type 2 diabetes mellitus without complication, without long-term current use of insulin ([facility]) Social History Tobacco Use Types Packs/Day Years [...] Diagnosis Type 2 diabetes mellitus without complication, unspecified whether mcfp insulin use ([facility]) documented in this encounter Additional Health Concerns Assessment Noted Time PHQ-9 Depression Total Score: 0 04/23/19 9:18 AM EST documented as of this encounter Care Teams Child Psychology Teacher Relationship Specialty Start Date End Date Nahomy Davies MD [address] [place] [address] PCP - General Internal Medicine 01/13/23 documented as of this encounter
--- OUTSIDE RECORDS SUMMARY | 2024-05-23 22:50 | XMS_ITS | Encounter Summary ---
Author Organization [employer] Address 75 [facility] 7t [place] [address] Care Team Providers Care Hairspring I Inspector Name Role Phone Nahomy Davies MD Primary Care Pro vider Reason for Visit * Reason Comments Med Refill Encounter Details Date Type Department Care Team ([facility] st Contact Info) Description 12/02/2023 Refill [facility] CHC MED & PEDS [address] [place], [place] [phone] Nahomy Davies MD [address] [place] [address] Social History Tobacco Use Types Packs/Day Years [...] documented as of this encounter Care Teams Hairspring I Inspector Relationship Specialty Start Date End Date Nahomy Davies MD [address] [place] [phone] PCP - General Internal Medicine 01/13/23 documented as of this encounter
--- OUTSIDE RECORDS SUMMARY | 2024-05-23 22:50 | XMS_ITS | Encounter Summary ---
Author Organization [employer] Address 75 [facility] 7t [place] [address] Care Team Providers Care Basic Combatant Swimmer Name Role Phone Nahomy Davies MD Primary Care Pro vider Reason for Visit * Reason Comments Med Refill Encounter Details Date Type Department Care Team ([facility] st Contact Info) Description 02/23/2024 Refill [facility] MEDICINE 230 [place], [place] [phone] Irene Mei MD [address] [place], [place] [phone] Type 2 diabetes mellitus with other specified complication, with long-term current use of insulin ([facility]); Shortness of breath Social History Tobacco Use [...] complication, with long-term current use of insulin ([facility] [place] [facility]) Shortness of breath documented in this encounter Additional Health Concerns Assessment Noted Time PHQ-9 Depression Total Score: 0 04/23/19 9:18 AM EST documented as of this encounter Care Teams Basic Combatant Swimmer Relationship Specialty Start Date End Date Nahomy Davies MD [address] [place] [address] PCP - General Internal Medicine 01/13/23 documented as of this encounter
--- OUTSIDE RECORDS SUMMARY | 2024-05-23 22:50 | XMS_ITS | Encounter Summary ---
Author Organization [email or web address] Address [address] [facility] [address] 7[address] [place] [address] Care Team Providers Care Global President Name Role Phone Nahomy Davies MD Primary Care Pro vider Reason for Visit * Reason Comments Med Refill Encounter Details Date Type Department Care Team ([facility] st Contact Info) Description 01/18/2024 Refill [facility] CHC MED & PEDS [address] [place], [place] [phone] Suyapa Doyle MD [address] [place] [address] Type 2 diabetes mellitus with other specified complication, with long-term current use of insulin ([facility]) Social History Tobacco Use Types [...] complication, with long-term current use of insulin ([facility]) documented in this encounter Additional Health Concerns Assessment Noted Time PHQ-9 Depression Total Score: 0 04/23/19 9:18 AM EST documented as of this encounter Care Teams Global President Relationship Specialty Start Date End Date Nahomy Davies MD [address] [place] [address] PCP - General Internal Medicine 01/13/23 documented as of this encounter
--- OUTSIDE RECORDS SUMMARY | 2024-05-23 22:50 | XMS_ITS | Encounter Summary ---
Author Organization [employer] Address [address] [facility] [address] 7t [place] [address] Care Team Providers Care On Air Personality Name Role Phone Nahomy Davies MD Primary Care Pro vider Encounter Details Date Type Department Care Team (Latest Contact Info) Description 05/15/2024 Travel Social History Tobacco Use Types Packs/Day Years [...] documented as of this encounter Care Teams On Air Personality Relationship Specialty Start Date End Date Nahomy Davies MD [address] [place] [phone] PCP - General Internal Medicine 01/13/23 documented as of this encounter
--- OUTSIDE RECORDS SUMMARY | 2024-05-23 22:50 | XMS_ITS | Encounter Summary ---
Author Organization [employer] Address 75 [facility] 7 [place] [address] Care Team Providers Care Fourchette Sewer Name Role Phone Nahomy Davies MD Primary Care Pro vider Reason for Visit * Reason Comments Med Refill Encounter Details Date Type Department Care Team ([facility] st Contact Info) Description 03/21/2024 Refill [facility] CH[facility] MED & PEDS [address] [place], [place] [phone] Nahomy Davies MD 230 [place] [address] Type 2 diabetes mellitus without complication, without long-term current use of insulin ([facility]); Type 2 diabetes mellitus without complication, unspecified whether chcf insulin use ([facility]); Iron deficiency anemia, unspecified iron deficiency anemia type; Acquired hypothyroidism; Sleep disturbance; Osteopenia determined by x-ray Social History Tobacco Use Types Packs/Day Years [...] 2 diabetes mellitus without complication, unspecified whether chcf insulin use ([facility]) Iron deficiency anemia, unspecified iron deficiency anemia type Acquired hypothyroidism Unspecified hypothyroidism Sleep disturbance Unspecified sleep disturbance Osteopenia determined by x-ray documented in this encounter Additional Health Concerns Assessment Noted Time PHQ-9 Depression Total Score: 0 04/23/19 9:18 AM EST documented as of this encounter Care Teams Fourchette Sewer Relationship Specialty Start Date End Date Nahomy Davies MD [address] [place] [phone] PCP - General Internal Medicine 01/13/23 documented as of this encounter
--- OUTSIDE RECORDS SUMMARY | 2024-05-23 22:50 | XMS_ITS | Encounter Summary ---
Author Organization [employer] Address 75 [facility] 7t [place] [address] Care Team Providers Care Photographers' Model Name Role Phone Nahomy Davies MD Primary Care Pro vider Reason for Visit * Reason Comments Med Refill Encounter Details Date Type Department Care Team ([facility] st Contact Info) Description 07/04/2023 Refill [facility] MEDICINE 230 [place], [place] [phone] Nahomy Davies MD [address] [place] [address] Social History Tobacco Use Types Packs/Day Years [...] documented as of this encounter Care Teams Photographers' Model Relationship Specialty Start Date End Date Nahomy Davies MD [address] [place] [phone] PCP - General Internal Medicine 01/13/23 documented as of this encounter
--- OUTSIDE RECORDS SUMMARY | 2024-05-23 22:50 | XMS_ITS | Encounter Summary ---
Author Organization [employer] Address 75 [facility] 7t [place] [address] Care Team Providers Care Pediatric Nephrologist Name Role Phone Nahomy Davies MD Primary Care Pro vider Reason for Visit * Reason Comments Med Refill Encounter Details Date Type Department Care Team ([facility] st Contact Info) Description 06/05/2023 Refill [facility] MEDICINE [address] [place] [address] Nahomy Davies MD [address] [place] [address] Social History Tobacco Use Types Packs/Day Years [...] documented as of this encounter Care Teams Pediatric Nephrologist Relationship Specialty Start Date End Date Nahomy Davies MD [address] [place] [phone] PCP - General Internal Medicine 01/13/23 documented as of this encounter
--- OUTSIDE RECORDS SUMMARY | 2024-05-23 22:50 | XMS_ITS | Encounter Summary ---
Author Organization [employer] Address [address] [facility] [address] 7t [place] [address] Care Team Providers Care Superintendent System Operation Name Role Phone Nahomy Davies MD Primary Care Pro vider Reason for Visit * Reason Comments Med Refill Encounter Details Date Type Department Care Team ([facility] st Contact Info) Description 04/20/2024 Refill [facility] CHC MED & PEDS [address] [place], [place] [phone] Suyapa Doyle MD 230 [place] [address] Iron deficiency anemia, unspecified iron deficiency anemia [...] documented as of this encounter Care Teams Superintendent System Operation Relationship Specialty Start Date End Date Nahomy Davies MD [address] [place] [address] PCP - General Internal Medicine 01/13/23 documented as of this encounter
--- OUTSIDE RECORDS SUMMARY | 2024-05-23 22:50 | XMS_ITS | Encounter Summary ---
Author Organization [email or web address] Address 75 [facility] 7t [place] [address] Care Team Providers Care Tube Cleaning Operator Name Role Phone Nahomy Davies MD Primary Care Pro vider Reason for Visit * Reason Comments Med Refill Encounter Details Date Type Department Care Team ([facility] st Contact Info) Description 01/31/2023 Refill [facility] MEDICINE [address] [place], [place] [phone] Nancy Larose FNP [address] [place] [address] Dept [place] [address] Social History Tobacco Use Types Packs/Day Years [...] documented as of this encounter Care Teams Tube Cleaning Operator Relationship Specialty Start Date End Date Nahomy Davies MD [address] [place] [phone] PCP - General Internal Medicine 01/13/23 documented as of this encounter
--- OUTSIDE RECORDS SUMMARY | 2024-05-23 22:50 | XMS_ITS | Encounter Summary ---
Author Organization [employer] Address 75 [facility] 7t [place] [address] Care Team Providers Care Accountant Controller Name Role Phone Nahomy Davies MD Primary Care Pro vider Reason for Visit * Reason Comments Med Refill Encounter Details Date Type Department Care Team ([facility] st Contact Info) Description 03/07/2024 Refill [facility] MEDICINE [address] [place], [place] [phone] Irene Mei MD [address] [place], [place] [phone] Shortness of breath; Type 2 diabetes mellitus with other specified complication, with long-term current use of insulin ([facility]); Chronic neck pain Social History Tobacco Use Types Packs/Day Years [...] complication, with long-term current use of insulin ([facility]) Chronic neck pain Cervicalgia documented in this encounter Additional Health Concerns Assessment Noted Time PHQ-9 Depression Total Score: 0 04/23/19 9:18 AM EST documented as of this encounter Care Teams Accountant Controller Relationship Specialty Start Date End Date Nahomy Davies MD [address] [place] [phone] PCP - General Internal Medicine 01/13/23 documented as of this encounter
--- OUTSIDE RECORDS SUMMARY | 2024-05-23 22:50 | XMS_ITS | Encounter Summary ---
Author Organization [employer] Address 75 [facility] 7t [place] [address] Care Team Providers Care Side Splitter Name Role Phone Nancy Larose Rianna FORKLIFT MECHANIC Primary Care Provider [phone]- [phone] Nahomy Davies MD Primary Care Pro vider Reason for Visit * Reason Comments Med Refill Encounter Details Date Type Department Care Team (Late st Contact Info) Description 09/15/2022 Refill [facility] MEDICINE [address] [place] [address] Anamaria Herzog FNP [address] [place], [place] [phone] Type 2 diabetes mellitus with other specified [...] documented as of this encounter Care Teams Side Splitter Relationship Specialty Start Date End Date Nancy Larose FNP PCP - General Family Medicine 12/08/21 01/12/23 Nahomy Davies MD [address] [place] [phone] PCP - General Internal Medicine 01/13/23 documented as of this encounter
--- OUTSIDE RECORDS SUMMARY | 2024-05-23 22:50 | XMS_ITS | Encounter Summary ---
Author Organization [employer] Address 75 [facility] 7t [place] [address] Care Team Providers Care Construction Carpenters Helper Name Role Phone Nahomy Davies MD Primary Care Pro vider Reason for Visit * Reason Comments Med Refill Encounter Details Date Type Department Care Team ([facility] st Contact Info) Description 03/05/2024 Refill [facility] MEDICINE 230 [place], [place] [phone] Irene Mei MD [address] [place], [place] [phone] Type 2 diabetes mellitus with other specified complication, with long-term current use of insulin ([facility]); Shortness of breath; Chronic neck pain Social History Tobacco Use [...] complication, with long-term current use of insulin ([facility]) Shortness of breath Chronic neck pain Cervicalgia documented in this encounter Additional Health Concerns Assessment Noted Time PHQ-9 Depression Total Score: 0 04/23/19 9:18 AM EST documented as of this encounter Care Teams Construction Carpenters Helper Relationship Specialty Start Date End Date Nahomy Davies MD [address] [place] [phone] PCP - General Internal Medicine 01/13/23 documented as of this encounter
--- OUTSIDE RECORDS SUMMARY | 2024-05-23 22:50 | XMS_ITS | Encounter Summary ---
Author Organization [employer] Address 75 [facility] 7t [place] [address] Care Team Providers Care Capsule Machine Operator Name Role Phone Nancy Larose LAUNCH OPERATOR Primary Care Provider +1- [phone] Nahomy Davies MD Primary Care Pro vider Encounter Details Date Type Department Care Team (Late st Contact Info) Description 10/19/2022 Orders Only [facility] MEDICINE [address] [place] [address] Kary Lux LPN Social History Tobacco Use Types Packs/Day Years [...] Orientation Straight 02/08/2022 10 :14 AM EDT COVID-19 Exposure Response Date Recorded In the last 10 days, have yo u been in contact with someone who was confirmed or suspected to have Coronavirus/COVID-19? No / Unsure 10/15/2022 1:45 PM EDT documented as of this encounter Plan of Treatment Not on file documented as of this encounter Visit Diagnoses Not on filedocumented in this encounter Additional Health Concerns Assessment Noted Time PHQ-9 Depression Total Score: 0 04/23/19 23 9:18 AM EST documented as of this encounter Care Teams Capsule Machine Operator Relationship Specialty Start Date End Date Nancy Larose FNP PCP - General Family Medicine 12/08/21 01/12/23 Nahomy Davies MD [address] [place] [phone] PCP - General Internal Medicine 01/13/23 documented as of this encounter
--- OUTSIDE RECORDS SUMMARY | 2024-05-23 22:50 | XMS_ITS | Encounter Summary ---
Author Organization [employer] Address 75 [facility] 7t [place] [address] Care Team Providers Care Air Launch Weapons Technician Name Role Phone Nahomy Davies MD Primary Care Pro vider Reason for Visit * Reason Comments Med Refill Encounter Details Date Type Department Care Team ([facility] st Contact Info) Description 02/07/2023 Refill [facility] MEDICINE 230 [place], [place] [phone] Nancy Larose FNP [address] [place] [address] [place] [address] Social History Tobacco Use Types Packs/Day Years [...] documented as of this encounter Care Teams Air Launch Weapons Technician Relationship Specialty Start Date End Date Nahomy Davies MD [address] [place] [address] PCP - General Internal Medicine 01/13/23 documented as of this encounter
--- OUTSIDE RECORDS SUMMARY | 2024-05-23 22:50 | XMS_ITS | Encounter Summary ---
Author Organization [employer] Address 75 [facility] 7t [place] [address] Care Team Providers Care Light Coil Winder Name Role Phone Nahomy Davies MD Primary Care Pro vider Reason for Visit * Reason Comments Med Refill Encounter Details Date Type Department Care Team ([facility] st Contact Info) Description 06/29/2023 Refill [facility] MEDICINE 230 [place], [place] [phone] Nahomy Davies MD 230 [place] [address] Social History Tobacco Use Types Packs/Day Years [...] documented as of this encounter Care Teams Light Coil Winder Relationship Specialty Start Date End Date Nahomy Davies MD [address] [place] [address] PCP - General Internal Medicine 01/13/23 documented as of this encounter
--- OUTSIDE RECORDS SUMMARY | 2024-05-23 22:50 | XMS_ITS | Encounter Summary ---
Author Organization [employer] Address [address] [facility] [address] 7t [place] [address] Care Team Providers Care Fiberglass Finisher Name Role Phone Nahomy Davies MD Primary Care Pro vider Encounter Details Date Type Department Care Team (Late st Contact Info) Description 05/01/2024 Orders Only [facility] MED[facility]INE 230 [place], [place] [phone] Radha Hylton, ANP 230 [place] [address] Atherosclerosis of coronary artery of enterprise heart without angina pectoris, unspecified vessel or lesion type (Primary Dx); High triglycerides Social History Tobacco Use Types Packs/Day Years [...] AM EDT documented as of this encounter Progress Notes * DOMENIC Loya - 05/01/2024 4:37 PM EST Received notice from patient's insurance company that omega-3 would no longer be covered by her insurance. I do think that an alternate medication - Vascepa - which is a good choice for her for hightriglycerides and atherosclerosis -should be approved without a prior authorization. Please let me know if patient is willing to switch and I will send Rx for next month to take place of omega-3's going forward. Diagnoses and all orders for this visit: Atherosclerosis of coronary artery of enterprise heart without angina pectoris, unspecified vessel or lesion type High triglycerides documented in this encounter Plan of Treatment Not on file documented as of this encounter Procedures Procedure Name Priority Date/Time Associated Diagnosis Comments XR ELBOW 1-2 VIEWS RIGHT Routine 05/23/2024 6:45 PM EST XR KNEE 3 VIEWS RIGHT Routine 05/23/2024 1:39 PM EST XR FOREARM 2 VIEWS RIGHT Routine 05/23/2024 1:39 PM EST XR ELBOW 3+ VIEWS RIGHT Routine 05/23/2024 1:39 PM EST documented in this encounter Results * XR Elbow 1-2 Views Right (05/23/2024 6:45 PM EST) Anatomical Region Laterality Modality Upper Extremities, Elbow Right Radiogr aphic Imaging 05/23/2024 6:45 PM EST Narrative 05/23/2024 6:47 PM EST ? [facility] ?[address] ?[place] [address] ?XRay Report ? Signed ? Patient: Sampson Louie,Arlette ?MR#: MM ?? [id number] ? : 1945 ?Acct:[id number] ? Age/Sex: 79 / F ?ADM Date: 05/23/24 ? Loc: HO.ED ? Attending Dr: ? Ordering Physician: Jeannie Moulton ?? Date of Service: 05/23/24 ?? Procedure(s): XR elbow RT 2V ?? Accession Number(s): [id number] ? cc: Nahomy Davies MD; Jeannie Moulton [...] ? DD/ 44 ? TD/TT: 05/23/241844 ? Psychology Lecturer: ? Procedure Note Roger Arora - 05/23/[address] [address] XRay Report Signed Patient: Gifty DiasLinda#: [id number] : 7Acct:[id number] Age/Sex: 79 / FADM Date: 05/23/24 Loc: HO.ED Attending Dr: Ordering Physician: Jeannie Moulton Date of Service: 05/23/24 Procedure(s): XR elbow RT 2V Accession Number(s): [id number] cc: Nahomy Davies MD; Jeannie Moulton CLINICAL [...] in OV> 05/23/241845 DD/ 44 TD/TT: 05/23/241844 Psychology Lecturer: [facility] External Provider IMG XR PROCEDURES Final Result * XR Elbow 3+ Views Right (05/23/2024 1:39 PM EST) Anatomical Region Laterality Modality Upper Extremities, Elbow Right Radiogr aphic Imaging 05/23/2024 1:39 PM EST Narrative 05/23/2024 2:13 PM EST ? [facility] ?[address] ?[place] [address] ?XRay Report ? Signed ? Patient: Sampson Louie,Arlette ?MR#: [id number] ?? [id number] ? : 1945 ?Acct:[id number] ? Age/Sex: 79 / F ?ADM Date: 02/12/25 ? Loc: HO.ED ? Attending Dr: ? Ordering Physician: Jeannie Moulton ?? Date of Service: 05/23/24 ?? Procedure(s): XR elbow RT min 3V ?? Accession Number(s): [id number] ? cc: Nahomy Davies MD; Jeannie Moulton [...] ??Grzegorz Borden MD ??05/23/2024 02:10 PM EST ? Dictated By: ?Grzegorz Borden MD ? Signed By: ?<Electronically signed by Grzegorz Borden MD in OV> ?05/23/24 1410 ? DD/ 1339 ? TD/TT: 05/23/24 1404 ? Psychology Lecturer: ? Procedure Note Ulysses, Image - 05/23/[address] [address] XRay Report Signed Patient: Gifty DiasR#: [id number] : 7Acct:[id number] Age/Sex: 79 / FADM Date: 05/23/24 Loc: HO.ED Attending Dr: Ordering Physician: Jeannie Moulton Date of Service: 05/23/24 Procedure(s): XR elbow RT min 3V Accession Number(s): [id number] cc: Nahomy Davies MD; Jeannie Moulton EXAMINATION: [...] 05/23/24 1410 DD/ 1339 TD/TT: 05/23/24 1404 Psychology Lecturer: us [facility] External Provider IMG XR PROCEDURES Final Result * XR Knee 3 Views Right (05/23/2024 1:39 PM EST) Anatomical Region Laterality Modality Lower Extremities, Knee Right Radiogra phic Imaging 05/23/2024 1:39 PM EST Narrative 05/23/2024 2:12 PM EST ? [facility] ?[address] ?[place] [address] ?XRay Report ? Signed ? Patient: Arlette Dias ?MR#: [id number] ?? [id number] ? : 1945 ?Acct:[id number] ? Age/Sex: 79 / F ?ADM Date: 05/23/24 ? Loc: HO.ED ? Attending Dr: ? Ordering Physician: Jeannie Moulton ?? Date of Service: 05/23/24 ?? Procedure(s): XR knee RT 3V ?? Accession Number(s): [id number] ? cc: Nahomy Davies MD; Jeannie Moulton [...] DD/ 1339 ? TD/TT: 05/23/24 1404 ? Psychology Lecturer: ? Procedure Note Donnimisha, Roger - 05/23/[address] [address] XRay Report Signed Patient: Gifty DiasR#: [id number] : 7Acct:[id number] Age/Sex: 79 / FADM Date: 05/23/24 Loc: HO.ED Attending Dr: Ordering Physician: Jeannie Moulton Date of Service: 05/23/24 Procedure(s): XR knee RT 3V Accession Number(s): [id number] cc: Nahomy Davies MD; Jeannie Moulton EXAMINATION: [...] 05/23/24 1410 DD/ 1339 TD/TT: 05/23/24 1404 Psychology Lecturer: us [facility] External Provider IMG XR PROCEDURES Final Result * XR Forearm 2 Views Right (05/23/2024 1:39 PM EST) Anatomical Region Laterality Modality Upper Extremities, Forearm Right Radio graphic Imaging 05/23/2024 1:39 PM EST Narrative 05/23/2024 2:11 PM EST ? [facility] ?[address] ?[place] [address] ?XRay Report ? Signed ? Patient: Adrián Palma,Arlette ?MR#: MM ?? [id number] ? : 1945 ?Acct:[id number] ? Age/Sex: 79 / F ?ADM Date: 05/23/24 ? Loc: HO.ED ? Attending Dr: ? Ordering Physician: Jeannie Moulton ?? Date of Service: 05/23/24 ?? Procedure(s): XR forearm RT 2V ?? Accession Number(s): [id number] ? cc: Nahomy Davies MD; Jeannie Moulton [...] DD/ 1339 ? TD/TT: 05/23/24 1404 ? Psychology Lecturer: ? Procedure Note Roger Arora - 05/23/[address] [address] XRay Report Signed Patient: Gifty DiasR#: [id number] : 7Acct:[id number] Age/Sex: 79 / FADM Date: 05/23/24 Loc: HO.ED Attending Dr: Ordering Physician: Jeannie Moulton Date of Service: 05/23/24 Procedure(s): XR forearm RT 2V Accession Number(s): [id number] cc: Nahomy Davies MD; Jeannie Moulton EXAMINATION: [...] 05/23/2024 02:08 PM EST RP Dictated By: aXnder Castellanos MD Signed By: <Electronically signed by Xander Villegas MDin OV> 05/23/24 1408 DD/ 1339 TD/TT: 05/23/24 1404 Psychology Lecturer: [facility] External Provider IMG XR PROCEDURES Final Result documented in this encounter Visit Diagnoses Diagnosis Atherosclerosis of coronary artery of enterprise heart without angina pectoris, unspecified vessel or lesion type- Primary High triglycerides Unspecified disorder of lipoid metabolism documented in this encounter Additional Health Concerns Assessment Noted Time PHQ-9 Depression Total Score: 0 04/23/19 23 9:18 AM EST documented as of this encounter Care Teams Fiberglass Finisher Relationship Specialty Start Date End Date Nahomy Davies MD [address] [place] [phone] PCP - General Internal Medicine 01/13/23 documented as of this encounter
--- OUTSIDE RECORDS SUMMARY | 2024-05-23 22:50 | XMS_ITS | Encounter Summary ---
Author Organization [employer] Address 75 [facility] 7t [place] [address] Care Team Providers Care Claim Adjuster Name Role Phone Nahomy Davies MD Primary Care Pro vider Reason for Visit * Reason Comments Med Refill Encounter Details Date Type Department Care Team ([facility] st Contact Info) Description 07/23/2023 Refill [facility] MEDICINE 230 [place] [address] Nahomy Davies MD 230 [place] [address] Iron deficiency anemia, unspecified iron deficiency anemia type; Type 2 diabetes mellitus without complication, without long-term current use of insulin ([facility]) Social History Tobacco Use Types [...] deficiency anemia, unspecified iron deficiency anemia type Type 2 diabetes mellitus without complication, without long-term current use of insulin ([facility]) documented in this encounter Additional Health Concerns Assessment Noted Time PHQ-9 Depression Total Score: 0 04/23/19 9:18 AM EST documented as of this encounter Care Teams Claim Adjuster Relationship Specialty Start Date End Date Nahomy Davies MD [address] [place] [address] PCP - General Internal Medicine 01/13/23 documented as of this encounter
--- OUTSIDE RECORDS SUMMARY | 2024-05-23 22:50 | XMS_ITS | Encounter Summary ---
Author Organization [employer] Address 75 [facility] 7t [place] [address] Care Team Providers Care Primary Therapist Name Role Phone Nahomy Davies MD Primary Care Pro vider Reason for Visit * Reason Comments Med Refill Encounter Details Date Type Department Care Team ([facility] st Contact Info) Description 11/08/2023 Refill [facility] MEDICINE 230 [place] [address] Nahomy Davies MD 230 [place] [address] Type 2 diabetes mellitus without complication, without long-term current use of insulin ([facility]) Social History Tobacco Use Types Packs/Day Years [...] complication, without long-term current use of insulin ([facility]) documented in this encounter Additional Health Concerns Assessment Noted Time PHQ-9 Depression Total Score: 0 04/23/19 9:18 AM EST documented as of this encounter Care Teams Primary Therapist Relationship Specialty Start Date End Date Nahomy Davies MD [address] [place] [address] PCP - General Internal Medicine 01/13/23 documented as of this encounter
--- OUTSIDE RECORDS SUMMARY | 2024-05-23 22:50 | XMS_ITS | Encounter Summary ---
Author Organization [employer] Address 75 [facility] 7t [place] [address] Care Team Providers Care Splicing Supervisor Name Role Phone Nahomy Davies MD Primary Care Pro vider Reason for Visit * Reason Comments Med Refill Encounter Details Date Type Department Care Team ([facility] st Contact Info) Description 06/20/2023 Refill [facility] MEDICINE 230 [place] [address] Nahomy Davies MD 230 [place] [address] Social History Tobacco Use Types Packs/Day Years [...] documented as of this encounter Care Teams Splicing Supervisor Relationship Specialty Start Date End Date Nahomy Davies MD [address] [place] [address] PCP - General Internal Medicine 01/13/23 documented as of this encounter
--- OUTSIDE RECORDS SUMMARY | 2024-05-23 22:50 | XMS_ITS | Encounter Summary ---
Author Organization [facility] Address [address] [place] [address] 7t [place] [address] Care Team Providers Care Head Grower Name Role Phone Nancy Larose Primary Care Provider +1- [phone] Nahomy Davies MD Primary Care Pro vider Encounter Details Date Type Department Care Team (Late st Contact Info) Description 03/30/2022 Orders Only [facility] 230 [place], [place] [phone] Kary Lux LPN Social History Tobacco Use Types Packs/Day Years Used Date Smoking Tobacco: Never Assessed Comments Unknown Sex and Gender Information Value Date Recorded Sex Assigned at Female 02/08/2022 10:14 AM EDT Legal Sex Female 10:14 AM EDT Gender Identity Female 02/08/2022 10:14 AM EDT Sexual Orientation Straight 02/08/2022 10 :14 AM EDT documented as of this encounter Plan of Treatment Not on file documented as of this encounter Visit Diagnoses Not on filedocumented in this encounter Care Teams Head Grower Relationship Specialty Start Date End Date Nancy Larose FNP PCP - General Family Medicine 12/08/21 01/12/23 Nahomy Davies MD 230 [place] [address] PCP - General Internal Medicine 01/13/23 documented as of this encounter
--- OUTSIDE RECORDS SUMMARY | 2024-05-23 22:50 | XMS_ITS | Encounter Summary ---
Author Organization [employer] Address 75 [facility] 7t [place] [address] Care Team Providers Care Substation Inspector Name Role Phone Nahomy Davies MD Primary Care Pro vider Reason for Visit * Reason Comments Med Refill Encounter Details Date Type Department Care Team ([facility] st Contact Info) Description 02/23/2024 Refill [facility] 230 [place] [address] Nahomy Davies MD 230 [place] [address] Essential hypertension; Type 2 diabetes mellitus without complication, without long-term current use of insulin ([facility]) Social History Tobacco Use Types Packs/Day [...] as of this encounter Visit Diagnoses Diagnosis Essential hypertension Unspecified essential hypertension Type 2 diabetes mellitus without complication, without long-term current use of insulin ([facility]) documented in this encounter Additional Health Concerns Assessment Noted Time PHQ-9 Depression Total Score: 0 04/23/19 23 9:18 AM EST documented as of this encounter Care Teams Substation Inspector Relationship Specialty Start Date End Date Nahomy Davies MD [address] [place] [address] PCP - General Internal Medicine 01/13/23 documented as of this encounter
--- OUTSIDE RECORDS SUMMARY | 2024-05-23 22:50 | XMS_ITS | Encounter Summary ---
Author Organization [employer] Address 75 [facility] 7t [place] [address] Care Team Providers Care Shoe Dresser Name Role Phone Nahomy Davies MD Primary Care Pro vider Reason for Visit * Reason Comments Med Refill Encounter Details Date Type Department Care Team ([facility] st Contact Info) Description 06/13/2023 Refill [facility] MEDICINE 230 [place] [address] Nahomy Davies MD 230 [place] [address] Social History Tobacco Use Types Packs/Day Years [...] documented as of this encounter Care Teams Shoe Dresser Relationship Specialty Start Date End Date Nahomy Davies MD [address] [place] [phone] PCP - General Internal Medicine 01/13/23 documented as of this encounter
--- OUTSIDE RECORDS SUMMARY | 2024-05-23 22:50 | XMS_ITS | Encounter Summary ---
Author Organization [employer] Address 75 [facility] 7t [place] [address] Care Team Providers Care Cupola Tapper Name Role Phone Nahomy Davies MD Primary Care Pro vider Reason for Visit * Reason Comments Med Refill Encounter Details Date Type Department Care Team ([facility] st Contact Info) Description 01/30/2024 Refill [facility] 230 [place], [place] [phone] Nahomy Davies MD 230 [place] [address] Iron deficiency anemia, unspecified iron deficiency anemia [...] documented as of this encounter Care Teams Cupola Tapper Relationship Specialty Start Date End Date Nahomy Davies MD [address] [place] [address] PCP - General Internal Medicine 01/13/23 documented as of this encounter
--- OUTSIDE RECORDS SUMMARY | 2024-05-23 22:50 | XMS_ITS | Encounter Summary ---
Author Organization [employer] Address [address] [facility] 7t [place] [address] Care Team Providers Care Benefit Director Name Role Phone Nahomy Davies MD Primary Care Pro vider Reason for Visit * Reason Comments Med Refill Encounter Details Date Type Department Care Team ([facility] st Contact Info) Description 02/28/2024 Refill [facility] MEDICINE 230 [place], [place] [phone] Irene Mei MD 230 [place], [place] [phone] Type 2 diabetes mellitus with other specified complication, with long-term current use of insulin ([facility]); Shortness of breath; Chronic neck pain Social [...] complication, with long-term current use of insulin ([facility]) Shortness of breath Chronic neck pain Cervicalgia documented in this encounter Additional Health Concerns Assessment Noted Time PHQ-9 Depression Total Score: 0 04/23/19 9:18 AM EST documented as of this encounter Care Teams Benefit Director Relationship Specialty Start Date End Date Nahomy Davies MD [address] [place] [address] PCP - General Internal Medicine 01/13/23 documented as of this encounter
--- OUTSIDE RECORDS SUMMARY | 2024-05-23 22:50 | XMS_ITS | Encounter Summary ---
Author Organization [employer] Address 75 [facility] 7t [place] [address] Care Team Providers Care Supervisor Model Making Name Role Phone Nancy Larose PAINTER AND DECORATOR APPRENTICE Primary Care Provider +1- [phone] Nahomy Davies MD Primary Care Pro vider Reason for Visit * Reason Comments Med Refill Encounter Details Date Type Department Care Team (Late st Contact Info) Description 11/10/2022 Refill [facility] MEDICINE 230 [place] [address] Nancy Larose FNP [address] [place] [address] Dept [place] [address] Type 2 diabetes mellitus without complication, without long-term current use of insulin ([facility]); Sleep disturbance; Constipation, unspecified constipation type; Essential hypertension; Gastroesophageal reflux disease without esophagitis; Cobalamin deficiency; Osteopenia determined by x-ray Social History Tobacco [...] complication, without long-term current use of insulin ([facility]) Sleep disturbance Unspecified sleep disturbance Constipation, unspecified constipation type Essential hypertension Unspecified essential hypertension Gastroesophageal reflux disease without esophagitis Esophageal reflux Cobalamin deficiency Other B-complex deficiencies Osteopenia determined by x-ray documented in this encounter Additional Health Concerns Assessment Noted Time PHQ-9 Depression Total Score: 0 04/23/19 9:18 AM EST documented as of this encounter Care Teams Supervisor Model Making Relationship Specialty Start Date End Date Nancy Larose FNP PCP - General Family Medicine 12/08/21 01/12/23 Nahomy Davies MD [address] [place] [address] PCP - General Internal Medicine 01/13/23 documented as of this encounter
[2024-05-23 23:15] VITALS: BP 132/68; PULSE 62; RESP 18; TEMP 37.2; O2SAT 94
[2024-05-24] MEDS: Acetaminophen 325 MG TABLET 975 MG PO (00:34)
--- NOTE | 2024-05-24 01:07 | PC.NURSE ---
Medicated per mar, reviewed discharge instruction with pt, pt verbalized understanding, pt wheeled out by friend to waiting room, no sob or chest pain no sign of distress.
[2024-05-24 01:08] VITALS: BP 132/68; PULSE 62; RESP 18; TEMP 37.2; O2SAT 94
== END 2024-05-24 01:08 | disposition home or self-care (01) ==
PROVIDERS: Emergency Provider Emergency Medicine; PCP Student in an Organized Health Care Education/Training Program
DX: S80.01XA Contusion of right knee, initial encounter (principal); M25.521 Pain in right elbow; M79.601 Pain in right arm; R10.2 Pelvic and perineal pain; W01.0XXA Fall on same level from slipping, tripping and stumbling without subsequent striking against object, initial encounter; Y93.89 Activity, other specified; Y92.238 Other place in hospital as the place of occurrence of the external cause; Y99.8 Other external cause status; Z79.899 Other long term (current) drug therapy
CPT/HCPCS: 73070; 73080; 73090; 73562; 99283; 99284

== ENCOUNTER → 2024-05-23 13:39 | Outpatient (BNV) | payer OTHER, SELFPAY | PROVIDERS: PCP Student in an Organized Health Care Education/Training Program; Visit Provider Radiology Diagnostic Radiology | DX: M25.561 Pain in right knee (principal); M25.021 Hemarthrosis, right elbow; M79.601 Pain in right arm | CPT/HCPCS: 73080; 73090; 73562 ==

== ENCOUNTER 2024-06-20 10:28 | Outpatient (AMB) | payer OTHER, SELFPAY ==
--- NOTE | 2024-06-20 10:34 | MHC.OFFVIS ---
Vital Signs 06/20/24 10:58 Height 5 ft 3 in Weight 208 lb 8.917 oz BMI 36.9 BP 132/58 L Blood Pressure Location Rt brachial Position Sitting Pulse 74 Pulse Source Pulse Oximeter Pulse Oximetry (%) 96 Oxygen Delivery Method Room Air Intake Visit Reasons: 6 month follow up Intake Note: ESTABLISHED PATIENT for mgmt of GERD + Constipation. Chief Complaint; Pt states that her sx are well controlled at the moment. No GI concerns per pt. Pt does require a refill of senna. Nuclear Officer Required: Yes Nuclear Officer Services: Nuclear Officer Present Nuclear Officer Name: Marbin [id number] Information Interpreted: clinical only Accompanied by: Family/Other Allergies lisinopril Allergy (Intermediate, Verified 05/23/24 13:34) itching Penicillins Allergy (Intermediate, Verified 05/23/24 13:34) rash/hives black pepper Allergy (Mild, Verified 06/13/24 11:04) Unknown fluticasone [From Flonase] Allergy (Mild, Verified 06/13/24 11:04) Unknown HPI HPI 6 month follow up: Details: LAST VISIT: Tubular adenoma of colon Chronic constipation Status post colonoscopy GERD (gastroesophageal reflux disease) Benign gastric polyp Plan Patient was encouraged to increase fiber intake. May start taking probiotics daily. Continue omeprazole daily. Avoid dietary triggers and late night snacking. Patient will start taking senna daily. Increase fluid intake and activity to promote better bowel motility. Follow-up in 6 months, sooner on as needed basis. Patient is agreeable to this plan and verbalizes understanding of instructions. She was given the opportunity to ask questions and all questions answered. ? Thank you for allowing me to participate in her care Medications New sennosides (Natural Senna Laxative) 17.2 mg (2 x 8.6 mg) PO BEDTIME 60 tabs 3RF constipation K59.00 omeprazole 20 mg PO DAILY 30 caps 5RF K21.9 TODAY'S VISIT Patient is here today for follow-up. Patient reports that since last visit she has been doing well. Takes omeprazole every morning half an hour before breakfast her symptoms of acid reflux are suppressed throughout the day and during the night. Patient denies eating late at night. Only small snacks in the evening. Patient is taking long-acting insulin at night time. Patient denies any dyspepsia, dysphagia or odynophagia. Reports that she is able to move her bowels well now that she takes senna. Patient denies any abdominal pain or discomfort. Denies any melena, hematochezia. Patient reports to be feeling well denies any GI concerning symptoms. [facility] Medical History Tubular adenoma of colon Chronic restrictive lung disease Insomnia On beta anish at home History of COVID-19 Asthma Chronic constipation Broken arm CAD (coronary artery disease) HTN (hypertension) Hyperlipidemia Diabetes mellitus Dyspnea Dysphagia Non-toxic multinodular goiter Hypothyroidism Surgical History H/O thyroidectomy History of surgery Hx of elbow surgery History of surgery on arm Hx of cholecystectomy History of partial hysterectomy Hx of cataract surgery History of tubal ligation Hx of tonsillectomy History of carpal tunnel release Hx of colonoscopy Family History Father Throat cancer Heart disease CVD (cardiovascular disease) Mother Stomach cancer Type 2 diabetes mellitus Arthritis of knee Hypertension Social History Household Members: None Household Members Other:: self Housing: Apartment Are you a primary memory care director to a significant other at home: No Do you presently have visiting nurse or other home services: No Alcohol intake: never Patient Tobacco Use Status: Never used Tobacco Second Hand Smoke Exposure: No service: No Current occupational status: retired Current occupation: right handed Review of Systems Const Denies weight gain and Denies weight loss ENT Reports no additional complaints, Denies dysphagia and Denies odynophagia Card Reports no additional complaints Resp Reports no additional complaints GI Denies abdominal pain, Denies belching, Denies melena, Denies bloating, Denies change in bowel habits, Denies dysphagia, Denies excessive flatus, Denies dyspepsia, Denies heartburn, Denies diarrhea, Denies loose stools, Denies nausea, Denies odynophagia and Denies vomiting Musc Reports no additional complaints Neuro Reports no additional complaints Psych Reports no additional complaints Endo Reports no additional complaints Physical Exam Vital Signs: Last Vital Signs Pulse 74 06/20/24 10:58 BP 132/58 L 06/20/24 10:58 Pulse Ox 96 06/20/24 10:58 Oxygen Delivery Method Room Air 06/20/24 10:58 BMI result Body Mass Index 36.9 Const General: healthy appearing and no acute distress Nutritional Appearance: obese Orientation/consciousness: patient oriented x3 Resp Effort & Inspection: normal respiratory effort, able to speak in complete sentences, no tracheal deviation and symmetric chest movement Auscultation: clear to auscultation bilaterally Cardio Rate: regular rate GI Inspection: Yes normal to inspection, No distended and Yes obesity Palpation (GI): Soft to palpation, not firm, nontender and No hepatosplenomegaly present Auscultation: normal bowel sounds General: Yes no CVA tenderness Back/Spine/Pelvis Back: no CVA tenderness Skin General skin exam: elasticity normal, turgor normal and dry skin Neuro General: patient oriented x3 Psych Appearance: grossly normal Mental Status: mental status grossly normal Assessment & Plan Assessment & Plan (1) Tubular adenoma of colon: Code(s): D12.6 - Benign neoplasm of colon, unspecified Category: Medical (2) Chronic constipation: Code(s): K59.09 - Other constipation Category: Medical (3) GERD (gastroesophageal reflux disease): Code(s): K21.9 - Gastro-esophageal reflux disease without esophagitis Qualifiers: Esophagitis presence: esophagitis presence not specified Qualified Code(s): K21.9 - Gastro-esophageal reflux disease without esophagitis (4) Benign gastric polyp: Code(s): K31.7 - Polyp of stomach and duodenum Plan Continue omeprazole every morning half an hour before breakfast. Avoid dietary triggers and late night snacking. Staying upright for minimum 3 hours after meals discussed with patient. Continue senna. Increase fluid intake and activity to promote better bowel motility. Patient will return in 10 weeks to discuss going for upper endoscopy. She will call our office if she will have any GI concerning symptoms. Patient is agreeable to current plan of care and verbalizes understanding of instructions. She was given the opportunity to ask questions and all questions answered. Thank you for allowing me to participate in her care Medications: Refilled sennosides (Natural Senna Laxative) 17.2 mg (2 x 8.6 mg) PO BEDTIME 180 tabs 3RF constipation K59.00 - Constipation, unspecified omeprazole 20 mg PO DAILY 90 caps 2RF K21.9 - Gastro-esophageal reflux disease without esophagitis Coding Level of Care Code Est Pt Level 4 (24733) Complex EM visit Add On G2211 Diagnoses Tubular adenoma of colon D12.6 Chronic constipation K59.09 Gastroesophageal reflux disease, unspecified whether esophagitis present K21.9 Esophagitis presence: esophagitis presence not specified Benign gastric polyp K31.7 Time Spent (min) 35 Comment 25 minutes spent with patient and additional 10 minutes spent reviewing her records
[2024-06-20 10:58] VITALS: BP 132/58; PULSE 74; O2SAT 96; BMI 36.9
--- OUTSIDE RECORDS SUMMARY | 2024-06-20 12:03 | XMS_ITS | Encounter Summary ---
Author Organization [employer] Address 75 [facility] 7t [place] [address] Care Team Providers Care Cardiac Cath Tech Name Role Phone Nahomy Davies MD Primary Care Pro vider Reason for Visit * Reason Comments Med Refill Encounter Details Date Type Department Care Team ([facility] st Contact Info) Description 02/27/2024 Refill [facility] MEDICINE 230 [place], [place] [phone] Irene Mei MD 230 [place], [place] [phone] Shortness of breath; Type 2 diabetes mellitus with other specified complication, with long-term current use of insulin ([facility] Social History Tobacco Use [...] complication, with long-term current use of insulin ([facility]) documented in this encounter Additional Health Concerns Assessment Noted Time PHQ-9 Depression Total Score: 0 04/23/19 9:18 AM EST documented as of this encounter Care Teams Cardiac Cath Tech Relationship Specialty Start Date End Date Nahomy Davies MD [address] [place] [phone] PCP - General Internal Medicine 01/13/23 documented as of this encounter
--- OUTSIDE RECORDS SUMMARY | 2024-06-20 12:03 | XMS_ITS | Encounter Summary ---
Author Organization [employer] Address 75 [facility] 7t [place] [address] Care Team Providers Care Bulb Weeder Name Role Phone Nahomy Davies MD Primary Care Pro vider Reason for Visit * Reason Comments Med Refill Encounter Details Date Type Department Care Team ([facility] st Contact Info) Description 02/28/2024 Refill [facility] MEDICINE 230 [place], [place] [phone] Irene Mei MD 230 [place], [place] [phone] Type 2 diabetes mellitus with other specified complication, with long-term current use of insulin ([facility]); Shortness of breath; Chronic neck [...] complication, with long-term current use of insulin ([facility]) Shortness of breath Chronic neck pain Cervicalgia documented in this encounter Additional Health Concerns Assessment Noted Time PHQ-9 Depression Total Score: 0 04/23/19 9:18 AM EST documented as of this encounter Care Teams Bulb Weeder Relationship Specialty Start Date End Date Nahomy Davies MD [address] [place] [id number] PCP - General Internal Medicine 01/13/23 documented as of this encounter
--- OUTSIDE RECORDS SUMMARY | 2024-06-20 12:03 | XMS_ITS | Encounter Summary ---
Author Organization [employer] Address [address] [facility] 7t [place] [address] Care Team Providers Care Monorail Hooker Name Role Phone Nahomy Davies MD Primary Care Pro vider Reason for Visit * Reason Comments Med Refill Encounter Details Date Type Department Care Team ([facility] st Contact Info) Description 02/23/2024 Refill [facility] MEDICINE 230 [place] [address] Nahomy Davies MD 230 [place] [address] Essential hypertension; Type 2 diabetes mellitus without complication, without long-term current use of insulin ([facility]) Social History Tobacco Use Types Packs/Day [...] complication, without long-term current use of insulin ([facility]) documented in this encounter Additional Health Concerns Assessment Noted Time PHQ-9 Depression Total Score: 0 04/23/19 23 9:18 AM EST documented as of this encounter Care Teams Monorail Hooker Relationship Specialty Start Date End Date Nahomy Davies MD [address] [place] [phone] PCP - General Internal Medicine 01/13/23 documented as of this encounter
--- OUTSIDE RECORDS SUMMARY | 2024-06-20 12:03 | XMS_ITS | Encounter Summary ---
Author Organization [employer] Address [address] [facility] 7t [place] [address] Care Team Providers Care Fish Cleaner Name Role Phone Nahomy Davies MD Primary Care Pro vider Reason for Visit * Reason Comments Med Refill Encounter Details Date Type Department Care Team ([facility] st Contact Info) Description 12/02/2023 Refill [facility] [address] [place], [place] [phone] Nahomy Davies MD 230 [place] [address] Social History Tobacco Use Types Packs/Day Years [...] documented as of this encounter Care Teams Fish Cleaner Relationship Specialty Start Date End Date Nahomy Davies MD [address] [place] [phone] PCP - General Internal Medicine 01/13/23 documented as of this encounter
--- OUTSIDE RECORDS SUMMARY | 2024-06-20 12:03 | XMS_ITS | Encounter Summary ---
Author Organization [employer] Address 75 [facility] 7t [place] [address] Care Team Providers Care Emotionally Impaired Teacher Name Role Phone Nahomy Davies MD Primary Care Pro vider Reason for Visit * Reason Comments Med Refill Encounter Details Date Type Department Care Team ([facility] st Contact Info) Description 01/30/2024 Refill [facility] MEDICINE 230 [place], [place] [phone] Nahomy Davies MD 230 [place] [address] Iron deficiency anemia, unspecified iron deficiency anemia [...] documented as of this encounter Care Teams Emotionally Impaired Teacher Relationship Specialty Start Date End Date Nahomy Davies MD [address] [place] [phone] PCP - General Internal Medicine 01/13/23 documented as of this encounter
--- OUTSIDE RECORDS SUMMARY | 2024-06-20 12:03 | XMS_ITS | Encounter Summary ---
Author Organization [employer] Address 75 [facility] 7t [place] [address] Care Team Providers Care Information Officer Name Role Phone Nahomy Davies MD Primary Care Pro vider Reason for Visit * Reason Comments Med Refill Encounter Details Date Type Department Care Team ([facility] st Contact Info) Description 02/23/2024 Refill [facility] MEDICINE 230 [place], [place] [phone] Irene Mei MD 230 [place], [place] [phone] Type 2 diabetes mellitus with other specified complication, with long-term current use of insulin ([facility]); Shortness of breath Social History Tobacco Use [...] complication, with long-term current use of insulin ([facility]) Shortness of breath documented in this encounter Additional Health Concerns Assessment Noted Time PHQ-9 Depression Total Score: 0 04/23/19 9:18 AM EST documented as of this encounter Care Teams Information Officer Relationship Specialty Start Date End Date Nahomy Davies MD [address] [place] [phone] PCP - General Internal Medicine 01/13/23 documented as of this encounter
--- OUTSIDE RECORDS SUMMARY | 2024-06-20 12:03 | XMS_ITS | Encounter Summary ---
Author Organization [employer] [facility] Address 75 [facility] 7t [place] [address] Care Team Providers Care Mill House Supervisor Name Role Phone Nancy Larose Primary Care Provider +1- [phone] Nahomy Davies MD Primary Care Pro vider Reason for Visit * Reason Comments Med Refill Encounter Details Date Type Department Care Team (Late st Contact Info) Description 09/23/2022 Refill [facility] MEDICINE 230 [place] [address] Nancy Larose FNP [address] [place] [address] Dept [place] [address] Shortness of breath Social History Tobacco Use [...] documented as of this encounter Care Teams Mill House Supervisor Relationship Specialty Start Date End Date Nancy Larose FNP PCP - General Family Medicine 12/08/21 01/12/23 Nahomy Davies MD [address] [place] [phone] PCP - General Internal Medicine 01/13/23 documented as of this encounter
--- OUTSIDE RECORDS SUMMARY | 2024-06-20 12:03 | XMS_ITS | Encounter Summary ---
Author Organization [employer] Address 75 [facility] 7t [place] [address] Care Team Providers Care Cuff Slitter Name Role Phone Nahomy Davies MD Primary Care Pro vider Reason for Visit * Reason Comments Med Refill Encounter Details Date Type Department Care Team ([facility] st Contact Info) Description 10/18/2023 Refill [facility] MEDICINE 230 [place] [address] Nahomy Davies MD 230 [place] [address] Social History Tobacco Use Types Packs/Day Years [...] documented as of this encounter Care Teams Cuff Slitter Relationship Specialty Start Date End Date Nahomy Davies MD [address] [place] [phone] PCP - General Internal Medicine 01/13/23 documented as of this encounter
--- OUTSIDE RECORDS SUMMARY | 2024-06-20 12:03 | XMS_ITS | Encounter Summary ---
Author Organization [employer] Address 75 [facility] 7t [place] [address] Care Team Providers Care Associate Doctor Name Role Phone Nancy Larose Rianna PEOPLE GREETER Primary Care Provider +1- [phone] Nahomy Davies MD Primary Care Pro vider Reason for Visit * Reason Comments Med Refill Encounter Details Date Type Department Care Team (Late st Contact Info) Description 08/30/2022 Refill [facility] MEDICINE [address] [place] [address] Anamaria Herzog FNP [address] [place], [place] [phone] Type 2 diabetes mellitus with other specified [...] documented as of this encounter Care Teams Associate Doctor Relationship Specialty Start Date End Date Nancy Larose FNP PCP - General Family Medicine 12/08/21 01/12/23 Nahomy Davies MD [address] [place] [phone] PCP - General Internal Medicine 01/13/23 documented as of this encounter
--- OUTSIDE RECORDS SUMMARY | 2024-06-20 12:03 | XMS_ITS | Encounter Summary ---
Author Organization [employer] Address 75 [facility] 7t [place] [address] Care Team Providers Care Kitchen Runner Name Role Phone Nahomy Davies MD Primary Care Pro vider Reason for Visit * Reason Comments Med Refill Encounter Details Date Type Department Care Team ([facility] st Contact Info) Description 02/02/2024 Refill [facility] MEDICINE 230 [place], [place] [phone] Nahomy Davies MD 230 [place] [address] Iron deficiency anemia, unspecified iron deficiency anemia [...] documented as of this encounter Care Teams Kitchen Runner Relationship Specialty Start Date End Date Nahomy Davies MD [address] [place] [phone] PCP - General Internal Medicine 01/13/23 documented as of this encounter
--- OUTSIDE RECORDS SUMMARY | 2024-06-20 12:03 | XMS_ITS | Encounter Summary ---
Author Organization [employer] Address 75 [facility] 7t [place] [address] Care Team Providers Care Return Agent Airport Name Role Phone Nahomy Davies MD Primary Care Pro vider Reason for Visit * Reason Comments Med Refill Encounter Details Date Type Department Care Team ([facility] st Contact Info) Description 03/05/2024 Refill [facility] MEDICINE 230 [place], [place] [phone] Irene Mei MD 230 [place], [place] [phone] Type 2 diabetes mellitus with other specified complication, with long-term current use of insulin ([facility]); Shortness of breath; Chronic neck pain Social [...] complication, with long-term current use of insulin ([facility]) Shortness of breath Chronic neck pain Cervicalgia documented in this encounter Additional Health Concerns Assessment Noted Time PHQ-9 Depression Total Score: 0 04/23/19 9:18 AM EST documented as of this encounter Care Teams Return Agent Airport Relationship Specialty Start Date End Date Nahomy Davies MD [address] [place] [phone] PCP - General Internal Medicine 01/13/23 documented as of this encounter
--- OUTSIDE RECORDS SUMMARY | 2024-06-20 12:03 | XMS_ITS | Encounter Summary ---
Author Organization [employer] Address 75 [facility] 7t [place] [address] Care Team Providers Care Scoop Operator Name Role Phone Nahomy Davies MD Primary Care Pro vider Reason for Visit * Reason Comments Med Refill Encounter Details Date Type Department Care Team ([facility] st Contact Info) Description 11/11/2023 Refill [facility] MEDICINE 230 [place] [address] Nahomy Davies MD 230 [place] [address] Type 2 diabetes mellitus without complication, without long-term current use of insulin ([facility]) Social History Tobacco Use Types Packs/Day Years [...] complication, without long-term current use of insulin ([facility]) documented in this encounter Additional Health Concerns Assessment Noted Time PHQ-9 Depression Total Score: 0 04/23/19 9:18 AM EST documented as of this encounter Care Teams Scoop Operator Relationship Specialty Start Date End Date Nahomy Davies MD [address] [place] [phone] PCP - General Internal Medicine 01/13/23 documented as of this encounter
--- OUTSIDE RECORDS SUMMARY | 2024-06-20 12:03 | XMS_ITS | Encounter Summary ---
Author Organization [employer] Address 75 [facility] 7t [place] [address] Care Team Providers Care Machine Printer Hose Name Role Phone Nahomy Davies MD Primary Care Pro vider Reason for Visit * Reason Comments Med Refill Encounter Details Date Type Department Care Team ([facility] st Contact Info) Description 01/31/2024 Refill [facility] MEDICINE 230 [place], [place] [phone] Nahomy Davies MD 230 [place] [address] Iron deficiency anemia, unspecified iron deficiency anemia [...] as of this encounter Care Teams Machine Printer Hose Relationship Specialty Start Date End Date Nahomy Davies MD [address] [place] [phone] PCP - General Internal Medicine 01/13/23 documented as of this encounter
--- OUTSIDE RECORDS SUMMARY | 2024-06-20 12:03 | XMS_ITS | Encounter Summary ---
Author Organization [employer] Address 75 [facility] 7t [place] [address] Care Team Providers Care Director Of First Impressions Name Role Phone Nancy Larose GLOBAL COMPENSATION MANAGER Primary Care Provider +1- [phone] Nahomy Davies MD Primary Care Pro vider Encounter Details Date Type Department Care Team (Late st Contact Info) Description 10/19/2022 Orders Only [facility] MEDICINE [address] [place] [address] Kary Lux LPN Social History Tobacco Use [...] documented as of this encounter Care Teams Director Of First Impressions Relationship Specialty Start Date End Date Nancy Larose FNP PCP - General Family Medicine 12/08/21 01/12/23 Nahomy Davies MD [address] [place] [phone] PCP - General Internal Medicine 01/13/23 documented as of this encounter
--- OUTSIDE RECORDS SUMMARY | 2024-06-20 12:03 | XMS_ITS | Encounter Summary ---
Author Organization [employer] Address 75 [facility] 7t [place] [address] Care Team Providers Care Tire Molder Name Role Phone Nahomy Davies MD Primary Care Pro vider Reason for Visit * Reason Comments Med Refill Encounter Details Date Type Department Care Team ([facility] st Contact Info) Description 03/07/[address] [facility] MEDICINE [address] [place], [place] [phone] Irene Mei MD 230 [place], [place] [phone] Shortness of breath; Type 2 diabetes mellitus with other specified complication, with long-term current use of insulin ([facility]); Chronic neck pain Social History Tobacco Use [...] complication, with long-term current use of insulin ([facility]) Chronic neck pain Cervicalgia documented in this encounter Additional Health Concerns Assessment Noted Time PHQ-9 Depression Total Score: 0 04/23/19 9:18 AM EST documented as of this encounter Care Teams Tire Molder Relationship Specialty Start Date End Date Nahomy Davies MD [address] [place] [phone] PCP - General Internal Medicine 01/13/23 documented as of this encounter
--- OUTSIDE RECORDS SUMMARY | 2024-06-20 12:03 | XMS_ITS | Encounter Summary ---
Author Organization [employer] Address [address] [facility] 7t [place] [address] Care Team Providers Care Core Shaper Name Role Phone Nahomy Davies MD Primary Care Pro vider Reason for Visit * Reason Comments Med Refill Encounter Details Date Type Department Care Team ([facility] st Contact Info) Description 11/08/2023 Refill [facility] MEDICINE 230 [place] [address] Nahomy Davies MD 230 [place] [address] Type 2 diabetes mellitus without complication, without long-term current use of insulin ([facility]) Social History Tobacco Use Types Packs/Day Years [...] complication, without long-term current use of insulin ([facility]) documented in this encounter Additional Health Concerns Assessment Noted Time PHQ-9 Depression Total Score: 0 04/23/19 9:18 AM EST documented as of this encounter Care Teams Core Shaper Relationship Specialty Start Date End Date Nahomy Davies MD [address] [place] [phone] PCP - General Internal Medicine 01/13/23 documented as of this encounter
--- OUTSIDE RECORDS SUMMARY | 2024-06-20 12:03 | XMS_ITS | Encounter Summary ---
Author Organization [employer] Address [address] [facility] [address] 7t [place] [address] Care Team Providers Care Neurology Epilepsy Physician Name Role Phone Nahomy Davies MD Primary Care Pro vider Reason for Visit * Reason Comments Med Refill Encounter Details Date Type Department Care Team ([facility] st Contact Info) Description 04/20/2024 Refill [facility] MED & PEDS [address] [place], [place] [phone] Suyapa Doyle MD 230 [place] [address] Iron deficiency anemia, unspecified iron deficiency anemia [...] documented as of this encounter Care Teams Neurology Epilepsy Physician Relationship Specialty Start Date End Date Nahomy Davies MD [address] [place] [phone] PCP - General Internal Medicine 01/13/23 documented as of this encounter
--- OUTSIDE RECORDS SUMMARY | 2024-06-20 12:03 | XMS_ITS | Encounter Summary ---
Author Organization [employer] Address [address] [facility] [address] 7t [place] [address] Care Team Providers Care Margin Analyst Name Role Phone Nahomy Davies MD Primary Care Pro vider Reason for Visit * Reason Comments Med Refill Encounter Details Date Type Department Care Team ([facility] st Contact Info) Description 01/18/2024 Refill [facility] CHC MED & PEDS [address] [place], [place] [phone] Suyapa Doyle MD 230 [place] [address] Type 2 diabetes mellitus with other specified complication, with long-term current use of insulin ([facility]) Social History Tobacco Use Types Packs/Day [...] complication, with long-term current use of insulin ([facility]) documented in this encounter Additional Health Concerns Assessment Noted Time PHQ-9 Depression Total Score: 0 04/23/19 9:18 AM EST documented as of this encounter Care Teams Margin Analyst Relationship Specialty Start Date End Date Nahomy Davies MD [address] [place] [phone] PCP - General Internal Medicine 01/13/23 documented as of this encounter
--- OUTSIDE RECORDS SUMMARY | 2024-06-20 12:03 | XMS_ITS | Encounter Summary ---
Author Organization [employer] [facility] Address [address] [place] [address] 7t [place] [address] Care Team Providers Care Order Administrator Name Role Phone Nancy Larose Primary Care Provider [phone]- [phone] Nahomy Davies MD Primary Care Pro vider Encounter Details Date Type Department Care Team (Late st Contact Info) Description 03/30/2022 Orders Only [facility] 230 [place], [place] [phone] Kary Lux LPN Social History Tobacco Use [...] on filedocumented in this encounter Care Teams Order Administrator Relationship Specialty Start Date End Date Nancy Larose FNP PCP - General Family Medicine 12/08/21 01/12/23 Nahomy Davies MD 230 [place] [address] PCP - General Internal Medicine 01/13/23 documented as of this encounter
--- OUTSIDE RECORDS SUMMARY | 2024-06-20 12:03 | XMS_ITS | Encounter Summary ---
Author Organization [employer] Address 75 [facility] 7t [place] [address] Care Team Providers Care Vallez Filter Operator Name Role Phone Nahomy Davies MD Primary Care Pro vider Reason for Visit * Reason Comments Med Refill Encounter Details Date Type Department Care Team ([facility] st Contact Info) Description 10/12/2023 Refill [facility] CHC MED & PEDS [address] [place], [place] [phone] Nahomy Davies MD 230 [place] [address] Iron deficiency anemia, unspecified iron deficiency anemia [...] documented as of this encounter Care Teams Vallez Filter Operator Relationship Specialty Start Date End Date Nahomy Davies MD [address] [place] [phone] PCP - General Internal Medicine 01/13/23 documented as of this encounter
--- OUTSIDE RECORDS SUMMARY | 2024-06-20 12:03 | XMS_ITS | Encounter Summary ---
Author Organization [employer] Address [address] [facility] 7t [place] [address] Care Team Providers Care Precision Aircraft Structure Assembler Name Role Phone Nahomy Davies MD Primary Care Pro vider Reason for Visit * Reason Comments Med Refill Encounter Details Date Type Department Care Team ([facility] st Contact Info) Description 11/08/2023 Refill [facility] MEDICINE 230 [place] [address] Nahomy Davies MD 230 [place] [address] Type 2 diabetes mellitus without complication, without long-term current use of insulin ([facility]) Social History Tobacco Use Types Packs/Day [...] complication, without long-term current use of insulin ([facility]) documented in this encounter Additional Health Concerns Assessment Noted Time PHQ-9 Depression Total Score: 0 04/23/19 9:18 AM EST documented as of this encounter Care Teams Precision Aircraft Structure Assembler Relationship Specialty Start Date End Date Nahomy Davies MD [address] [place] [phone] PCP - General Internal Medicine 01/13/23 documented as of this encounter
--- OUTSIDE RECORDS SUMMARY | 2024-06-20 12:03 | XMS_ITS | Encounter Summary ---
Author Organization [employer] Address 75 [facility] 7t [place] [address] Care Team Providers Care Lawyer Real Estate Name Role Phone Nahomy Davies MD Primary Care Pro vider Reason for Visit * Reason Comments Med Refill Encounter Details Date Type Department Care Team ([facility] st Contact Info) Description 11/07/2023 Refill [facility] MEDICINE 230 [place] [address] Nahomy Davies MD 230 [place] [address] Type 2 diabetes mellitus without complication, without long-term current use of insulin ([facility]) Social History Tobacco Use Types Packs/Day Years [...] complication, without long-term current use of insulin ([facility]) documented in this encounter Additional Health Concerns Assessment Noted Time PHQ-9 Depression Total Score: 0 04/23/19 9:18 AM EST documented as of this encounter Care Teams Lawyer Real Estate Relationship Specialty Start Date End Date Nahomy Davies MD [address] [place] [phone] PCP - General Internal Medicine 01/13/23 documented as of this encounter
--- OUTSIDE RECORDS SUMMARY | 2024-06-20 12:03 | XMS_ITS | Encounter Summary ---
Author Organization [employer] Address [address] [facility] 7t [place] [address] Care Team Providers Care Clam Shucker Name Role Phone Nancy Larose Rianna JUICE BAR TEAM MEMBER Primary Care Provider [phone]- [phone] Nahomy Davies MD Primary Care Pro vider Reason for Visit * Reason Comments Med Refill Encounter Details Date Type Department Care Team (Late st Contact Info) Description 09/15/2022 Refill [facility] MEDICINE [address] [place] [address] Anamaria Herzog FNP [address] [place], [place] [phone] Type 2 diabetes mellitus with other specified [...] documented as of this encounter Care Teams Clam Shucker Relationship Specialty Start Date End Date Nancy Larose FNP PCP - General Family Medicine 12/08/21 01/12/23 Nahomy Davies MD [address] [place] [phone] PCP - General Internal Medicine 01/13/23 documented as of this encounter
--- OUTSIDE RECORDS SUMMARY | 2024-06-20 12:03 | XMS_ITS | Encounter Summary ---
Author Organization [employer] Address [address] [facility] 7t [place] [address] Care Team Providers Care Drop Forger Name Role Phone Nahomy Davies MD Primary Care Pro vider Reason for Visit * Reason Comments Med Refill Encounter Details Date Type Department Care Team ([facility] st Contact Info) Description 04/20/2024 Refill [facility] CHC MED & PEDS [address] [place], [place] [phone] Nahomy Davies MD 230 [place] [address] Mixed hyperlipidemia Social History Tobacco Use Types [...] documented as of this encounter Care Teams Drop Forger Relationship Specialty Start Date End Date Nahomy Davies MD [address] [place] [phone] PCP - General Internal Medicine 01/13/23 documented as of this encounter
--- OUTSIDE RECORDS SUMMARY | 2024-06-20 12:03 | XMS_ITS | Encounter Summary ---
Author Organization [employer] Address [address] [facility] 7t [place] [address] Care Team Providers Care Freelance Art Director Name Role Phone Nahomy Davies MD Primary Care Pro vider Reason for Visit * Reason Comments Med Refill Encounter Details Date Type Department Care Team ([facility] st Contact Info) Description 01/22/2024 Refill [facility] MEDICINE 230 [place] [address] Nahomy Davies MD 230 [place] [address] Social History Tobacco Use Types Packs/Day Years [...] documented as of this encounter Care Teams Freelance Art Director Relationship Specialty Start Date End Date Nahomy Davies MD [address] [place] [phone] PCP - General Internal Medicine 01/13/23 documented as of this encounter
--- OUTSIDE RECORDS SUMMARY | 2024-06-20 12:04 | XMS_ITS | Encounter Summary ---
Author Organization [employer] Address [address] [facility] 7t [place] [address] Care Team Providers Care Jigmaker Name Role Phone Nahomy Davies MD Primary Care Pro vider Reason for Visit * Reason Comments Med Refill Encounter Details Date Type Department Care Team ([facility] st Contact Info) Description 06/13/2024 Refill [facility] CHC MED & PEDS 505 [place], [place] [phone] Nahoym Davies MD 230 [place], [place] [phone] Social History Tobacco Use Types Packs/Day Years [...] documented as of this encounter Care Teams Jigmaker Relationship Specialty Start Date End Date Nahomy Davies MD [address] [place] [phone] PCP - General Internal Medicine 01/13/23 documented as of this encounter
--- OUTSIDE RECORDS SUMMARY | 2024-06-20 12:04 | XMS_ITS | Encounter Summary ---
Author Organization [employer] Address [address] [facility] 7t [place] [address] Care Team Providers Care School Bus Attendant Name Role Phone Nahomy Davies MD Primary Care Pro vider Reason for Visit * Reason Comments Med Refill Encounter Details Date Type Department Care Team ([facility] st Contact Info) Description 02/07/2023 Refill [facility] MEDICINE 230 [place], [place] [phone] Nancy Larose FNP [address] [place] [address] Dept [place] [address] Social History Tobacco Use Types Packs/Day Years [...] documented as of this encounter Care Teams School Bus Attendant Relationship Specialty Start Date End Date Nahomy Davies MD [address] [place] [address] PCP - General Internal Medicine 01/13/23 documented as of this encounter
--- OUTSIDE RECORDS SUMMARY | 2024-06-20 12:04 | XMS_ITS | Encounter Summary ---
Author Organization [employer] Address [address] [facility] 7t [place] [address] Care Team Providers Care Product Coordinator Name Role Phone Nahomy Davies MD Primary Care Pro vider Reason for Visit * Reason Comments Med Refill Encounter Details Date Type Department Care Team ([facility] st Contact Info) Description 06/29/2023 Refill [facility] MEDICINE 230 [place], [place] [phone] Nahomy Davies MD 230 [place] [address] Social History Tobacco Use Types Packs/Day Years [...] documented as of this encounter Care Teams Product Coordinator Relationship Specialty Start Date End Date Nahomy Davies MD [address] [place] [phone] PCP - General Internal Medicine 01/13/23 documented as of this encounter
--- OUTSIDE RECORDS SUMMARY | 2024-06-20 12:04 | XMS_ITS | Encounter Summary ---
Author Organization [employer] Address [address] [facility] 7t [place] [address] Care Team Providers Care Lens Polisher Hand Name Role Phone Nahomy Davies MD Primary Care Pro vider Reason for Visit * Reason Comments Med Refill Encounter Details Date Type Department Care Team ([facility] st Contact Info) Description 07/23/2023 Refill [facility] MEDICINE 230 [place] [address] Nahomy Davies MD 230 [place] [address] Iron deficiency anemia, unspecified iron deficiency anemia type; Type 2 diabetes mellitus without complication, without long-term current use of insulin ([facility]) Social History Tobacco Use [...] complication, without long-term current use of insulin ([facility]) documented in this encounter Additional Health Concerns Assessment Noted Time PHQ-9 Depression Total Score: 0 04/23/19 9:18 AM EST documented as of this encounter Care Teams Lens Polisher Hand Relationship Specialty Start Date End Date Nahomy Davies MD [address] [place] [phone] PCP - General Internal Medicine 01/13/23 documented as of this encounter
--- OUTSIDE RECORDS SUMMARY | 2024-06-20 12:04 | XMS_ITS | Encounter Summary ---
Author Organization [employer] Address [address] [facility] 7t [place] [address] Care Team Providers Care Arch Cushion Press Operator Name Role Phone Nahomy Davies MD Primary Care Pro vider Reason for Visit * Reason Comments Med Refill Encounter Details Date Type Department Care Team ([facility] st Contact Info) Description 01/31/2023 Refill [facility] MEDICINE 230 [place], [place] [phone] Nancy Larose FNP [address] [place] [address] Dept [place] [address] Social History Tobacco Use Types Packs/Day Years [...] documented as of this encounter Care Teams Arch Cushion Press Operator Relationship Specialty Start Date End Date Nahomy Davies MD [address] [place] [phone] PCP - General Internal Medicine 01/13/23 documented as of this encounter
--- OUTSIDE RECORDS SUMMARY | 2024-06-20 12:04 | XMS_ITS | Encounter Summary ---
Author Organization [employer] Address 75 [facility] 7 [place] [address] Care Team Providers Care Brick Picker Name Role Phone Nahomy Davies MD Primary Care Pro vider Reason for Visit * Reason Comments Med Refill Encounter Details Date Type Department Care Team ([facility] st Contact Info) Description 03/21/2024 Refill [facility] CH[facility] MED & PEDS 505 [place], [place] [phone] Nahomy Davies MD 230 [place] [address] Type 2 diabetes mellitus without complication, without long-term current use of insulin ([facility]); Type 2 diabetes mellitus without complication, unspecified whether termite helper insulin use ([facility]); Iron deficiency anemia, unspecified iron [...] 2 diabetes mellitus without complication, unspecified whether termite helper insulin use ([facility]) Iron deficiency anemia, unspecified iron deficiency anemia type Acquired hypothyroidism Unspecified hypothyroidism Sleep disturbance Unspecified sleep disturbance Osteopenia determined by x-ray documented in this encounter Additional Health Concerns Assessment Noted Time PHQ-9 Depression Total Score: 0 04/23/19 9:18 AM EST documented as of this encounter Care Teams Brick Picker Relationship Specialty Start Date End Date Nahomy Davies MD [address] [place] [phone] PCP - General Internal Medicine 01/13/23 documented as of this encounter
--- OUTSIDE RECORDS SUMMARY | 2024-06-20 12:04 | XMS_ITS | Encounter Summary ---
Author Organization [employer] Address 75 [facility] 7t [place] [address] Care Team Providers Care Saw Superintendent Name Role Phone Nahomy Davies MD Primary Care Pro vider Reason for Visit * Reason Comments Med Refill Encounter Details Date Type Department Care Team ([facility] st Contact Info) Description 06/20/2023 Refill [facility] MEDICINE 230 [place] [address] Nahomy Davies MD 230 [place] [address] Social History Tobacco Use Types Packs/Day Years Used Date Smoking Tobacco: Never Passive Smoke Exposure: Never Smokeless Tobacco: Never Alcohol Use Standard Drinks/Week Comments Never 0 (1 standard drink = 0.6 oz pur e alcohol) Depression Answer Date Recorded Patient Health Questionnaire-9 Score 0 04/23/2022 Housing Stability Answer Date Recorded What is your housing situation today? I have chaira bello 01/24/[address] you [...] documented as of this encounter Care Teams Saw Superintendent Relationship Specialty Start Date End Date Nahomy Davies MD [address] [place] [phone] PCP - General Internal Medicine 01/13/23 documented as of this encounter
--- OUTSIDE RECORDS SUMMARY | 2024-06-20 12:04 | XMS_ITS | Clinical Summary ---
Author Organization [employer] Address [address] [facility] [address] [place] [address] Care Team Providers Care Automotive Generator Repairer Name Role Phone Nahomy Davies MD [...] complication, without long-term current use of insulin ([facility]) APPLY A SMALL AMOUNT TOPICALLY TO AFFECTED AREA(S) TWO TIMES A DAY 60 g 3 023 Active latanoprost (Xalatan) 0.005 % ophthalmic solution Administer 1 drop into both eyes at bedtime. 023 Active brimonidine-timol ol (Combigan) 0.2-0.5 % ophthalmic solution Administer 1 drop into both eyes 2 times daily. 023 Active glucose blood (FreeStyle Precision Mahesh Test) test strip Test blood sugar q 8 hours 100 each 12 024 Active pen needle 31G x 8 mm misc USE DAILY as INSTRUCTED 100 each 11 07/01/2 024 Active Continuous [employer] Lawyer (FreeStyle Anthony 2 Drake) device Use as directed to monitor glucose ever 8 hours. 1 each Active Continuous Glucose Sensor (FreeStyle Anthnoy 2 Sensor) [facility] [place] as directed to monitor glucose ever 8 hours. Replace sensor every 14 days. 2 each Active insulin glargine (Lantus SoloStar) 100 UNIT/ML penIndications:Ty pe 2 diabetes mellitus with hypoglycemia without coma, with long-term current use of insulin ([facility]) Inject 18 Units under the skin at bedtime. 30 mL Active losartan (Cozaar) 25 MG tablet Take 1 tablet (25 mg) by mouth Once per day. 30 tablet 2024 Active cyanocobalamin (Vitamin B-12) 1000 MCG tabletIndications :Cobalamin deficiency TAKE 1 TABLET BY MOUTH ONCE A DAY 30 tablet Active pregabalin (Lyrica) 100 MG capsule TAKE ONE CAPSULE BY MOUTH TWICE A DAY ^1R1,1R4 56 capsule 5 024 Active Senna-Time 8.6 MG tablet TAKE 2 TABLETS BY MOUTH EVERY DAY AT BEDTIME FOR CONSTIPATION Active omega-3 acid ethyl esters (Lovaza) 1 g capsuleIndication s:Mixed hyperlipidemia TAKE TWO CAPSULES BY MOUTH TWICE A DAY ^2R2,2R3 120 capsule 5 024 Active Diclofenac Sodium 1 % gel APPLY TOPICALLY EACH DAY IF NEEDED FOR SHOULDER PAIN (BULK) 100 g 024 Active Ascorbic Acid (vitamin C) 250 MG tabletIndications :Iron deficiency anemia, unspecified iron deficiency anemia type TAKE ONE TABLET BY MOUTH EVERY MORNING ^1R1 30 tablet 5 024 Active metFORMIN XR (Glucophage-XR) 500 MG 24 hr tabletIndications :Type 2 diabetes mellitus without complication, without long-term current use of insulin ([facility]) TAKE 2 TABLETS BY MOUTH TWO TIMES A DAY WITH FOOD 112 tablet 5 024 Active metoprolol succinate XL (Toprol-XL) 50 MG 24 hr tabletIndications :Essential hypertension TAKE ONE TABLET BY MOUTH EVERY DAY ^1R1 30 tablet 5 024 Active lidocaine (Lidoderm) 5 % patchIndications: Chronic neck pain APPLY ONE PATCH TOPICALLY ONCE DAILY - REMOVE AND DISCARD PATCH WITHIN 12 HOURS OR DIRECTED BY MD (BULK) 30 patch 3 024 Active albuterol 108 (90 Base) MCG/ACT inhalerIndication s:Shortness of breath INHALE TWO PUFFS BY MOUTH FOUR TIMES A DAY (BULK) 8.5 g 3 024 Active glucose 4 g chewable tabletIndications :Type 2 diabetes mellitus with other specified complication, with long-term current use of insulin ([facility]) CHEW AND SWALLOW 4 TABLETS BY MOUTH IF NEEDED FOR LOW BLOOD SUGAR (BULK) 50 tablet 3 024 Active FreeStyle lancets 1 each by Other route 3 times daily. USE TO TEST BLOOD SUGAR THREE TIMES A DAY 200 each 025 Active cholecalciferol VITAMIN D (Vitamin D-3) 50 MCG (1999 UT) capsule TAKE ONE CAPSULE BY MOUTH EVERY DAY 30 capsule 025 Active aspirin (Aspirin Low Dose) 81 MG EC tablet TAKE ONE TABLET BY MOUTH EVERY DAY 30 tablet 025 Active Calcium + Vitamin D3 600-10 MG-MCG tabletIndications :Osteopenia determined by x-ray TAKE ONE TABLET BY MOUTH TWICE A DAY ^1R1,1R4 60 tablet 025 Active Januvia 50 MG tablet TAKE ONE TABLET BY MOUTH EVERY DAY ^1R1 30 tablet 025 Active levothyroxine (Synthroid, Levoxyl) 75 MCG tabletIndications :Acquired hypothyroidism TAKE ONE TABLET BY MOUTH EVERY DAY BEFORE BREAKFAST 30 tablet 025 Active melatonin 5 MG tabletIndications :Sleep disturbance TAKE ONE TABLET BY MOUTH AT BEDTIME 30 tablet 025 Active Multiple Vitamin (Tab-A-Nelly) tablet TAKE ONE TABLET BY MOUTH EVERY DAY 30 tablet 025 Active omeprazole (PriLOSEC) [address] capsule TAKE ONE CAPSULE BY MOUTH EVERY DAY BEFORE MEALS ^1R1 30 capsule 025 Active Alcohol Swabs (Easy Touch Alcohol Prep Medium) 70 % padsIndications:T ype 2 diabetes mellitus without complication, unspecified whether terminal block assembler insulin use ([facility]) USE TO TEST BLOOD SUGAR AND ADMINISTER INSULIN AT NOON AND IN THE EVENING (5-7 TIMES DAILY ) (BULK) 200 each 2 025 Active Acetaminophen Extra Strength 500 MG tabletIndications :Type 2 diabetes mellitus without complication, without long-term current use of insulin ([facility]) TAKE ONE TO TWO TABLETS BY MOUTH THREE TIMES A DAY NEEDED (VIAL) 60 tablet 1 025 Active ferrous gluconate (Fergon) 324 (38 Fe) MG tabletIndications :Iron deficiency anemia, unspecified iron deficiency anemia type TAKE ONE TABLET BY MOUTH EVERY DAY WITH BREAKFAST 30 tablet 025 Active simvastatin (Zocor) 40 MG tabletIndications :Mixed hyperlipidemia TAKE 1 TABLET BY MOUTH AT BEDTIME ^1R4 90 tablet 3 025 Active Arnuity Ellipta 100 MCG/ACT inhaler INHALE ONE PUFF BY MOUTH EVERY DAY RINSE MOUTH AFTER USE TO REDUCE AFTERTASTE AND INCIDENCE OF CANDIDIASIS. DO NOT SWALLOW (BULK) 30 each 11 025 Active simvastatin (Zocor) 40 MG tabletIndications :Mixed hyperlipidemia TAKE 1 TABLET BY MOUTH AT BEDTIME ^1R4 90 tablet 3 024 2024 Discontinued(R eorder (will not trigger notification to Pharmacy)) fluticasone furoate (Arnuity Ellipta) 100 MCG/ACT inhaler Inhale 1 puff Once per day. Rinse mouth with water after use to reduce aftertaste and incidence of candidiasis. Do not swallow. 1 each 11 024 2024 Discontinued ferrous gluconate (Fergon) 324 (38 Fe) MG tabletIndications :Iron deficiency anemia, unspecified iron deficiency anemia type TAKE ONE TABLET BY MOUTH EVERY DAY WITH BREAKFAST 30 tablet 025 2024 Discontinued Active Problems Problem Noted [...] Encounters Date Type Department Care Team Description 06/13/2024 Refill [facility] [address] [place] [address] Nahomy Davies MD Type 2 diabetes mellitus with other specified complication, with long-term current use of insulin ([facility]) 06/13/2024 Refill [facility] [address] [place] [address] Nahomy Davies MD 06/06/2024 11:00 AM EST Office Visit [facility] [address] [place] [address] Jp Snow MD Scalp mass (Primary Dx); Right knee injury, initial encounter 05/29/2024 Refill [facility] [address] [place] [address] Suyapa Doyle MD Iron deficiency anemia, unspecified iron deficiency anemia type; Mixed hyperlipidemia 05/29/2024 Refill [facility] [address] [place] [address] Nahomy Davies MD Mixed hyperlipidemia 05/16/2024 Refill [facility] [address] [place] [address] Suyapa Doyle MD Type 2 diabetes mellitus without complication, unspecified whether terminal block assembler insulin use (CMS/HCC); Type 2 diabetes mellitus without complication, without long-term current use of insulin (CMS/HCC) 05/16/2024 Refill [facility] [address] [place] [address] Nahomy Davies MD 05/15/2024 10:15 AM EST Office Visit [facility] [address] [place] [phone] Era Belle CNM Visit for pelvic exam (Primary Dx); Rash 05/15/2024 Travel 05/02/2024 Telephone [facility] [address] [place] [phone] Kyara Akbar RN Medication Question 05/01/2024 Orders Only [facility] [address] [place] [phone] Radha Hylton ANP Atherosclerosis of coronary artery of [place] heart without angina pectoris, unspecified vessel or lesion type (Primary Dx); High triglycerides 04/20/2024 Refill [facility] [address] [place] [address] Suyapa Doyle MD Iron deficiency anemia, unspecified iron deficiency anemia type 04/20/2024 Refill [facility] [address] [place] [address] Nahomy Davies MD Mixed hyperlipidemia 04/16/2024 Refill [facility] [address] [place], [place] [phone] Nahomy Davies MD Type 2 diabetes mellitus without complication, without long-term current use of insulin ([facility]); Type 2 diabetes mellitus without complication, unspecified whether jail insulin use (CMS/HCC); Osteopenia determined by x-ray; Iron deficiency anemia, unspecified iron deficiency anemia type; Acquired hypothyroidism; Sleep disturbance 04/13/2024 Refill [facility] [address] [place] [phone] Nahomy Davies MD 03/28/2024 Travel from Last 3 Months Immunizations Name Administration [...] Sign Reading Time Taken Comments Blood Pressure 138/68 06/06/2024 11:34 AM EST Pulse 58 06/06/2024 11:34 AM EST Temperature 36.6 ??C (97.8 ??F) 06/06/2024 11:[address] Respiratory Rate 16 06/06/2024 11:34 AM EST Oxygen Saturation 98% 06/06/2024 11:34 AM EST Inhaled Oxygen Concentration - - Weight 95.1 kg (209 lb 9.6 oz) 06/06/2024 11:34 AM EST Height 160 cm (5' 3 ) 05/15/2024 10:17 AM EST Body Mass Index 37.13 05/15/2024 10:17 AM EST Plan of Treatment [...] 03/22/2023, 10/19/2022, Additional history exists Tobacco Screening 06/06/2025 06/06/2024 DTaP/Tdap/Td Vaccines (3 - Td or Tdap) [...] EST Narrative 05/23/2024 6:47 PM EST ? [facility] ?[address] ?[place] [address] ?XRay Report ? Signed ? Patient: Sampson Louie,Arlette ?MR#: MM ?? [id number] ? : 1945 ?Acct:[id number] ? Age/Sex: 79 / F ?ADM Date: 02/12/25 ? Loc: HO.ED ? Attending Dr: ? Ordering Physician: Jeannie Moulton ?? Date of Service: 05/23/24 ?? Procedure(s): XR elbow RT 2V ?? Accession Number(s): [id number] ? cc: Nahomy Davies MD; Jeannie Moulton [...] by Daniel Bo MD in OV> ? 05/23/24 1846 ? DD/ 44 ? TD/TT: 05/23/241844 ? Director Occupational: ? Procedure Note Adriannanakia, Image - 05/23/2024 [place] [address] XRay Report Signed Patient: Clarisa Dias#: [id number] : 7Acct:[id number] Age/Sex: 79 / FADM Date: 05/23/24 Loc: HO.ED Attending Dr: Ordering Physician: Jeannie Moulton Date of Service: 05/23/24 Procedure(s): XR elbow RT 2V Accession Number(s): [id number] cc: Nahomy Davies MD; Jeannie Moulton CLINICAL [...] in OV> 05/23/241845 DD/ 44 TD/TT: 05/23/241844 Director Occupational: us [facility] External Provider IMG XR PROCEDURES Final Result * XR Knee 3 Views Right (05/23/2024 1:39 PM EST) Anatomical Region Laterality Modality Lower Extremities, Knee Right Radiogra phic Imaging 05/23/2024 1:39 PM EST Narrative 05/23/2024 2:12 PM EST ? [facility] ?[address] ?[place] [address] ?XRay Report ? Signed ? Patient: Arlette Dias ?MR#: MM ?? [id number] ? : 1945 ?Acct:[id number] ? Age/Sex: 79 / F ?ADM Date: 05/23/24 ? Loc: HO.ED ? Attending Dr: ? Ordering Physician: Jeannie Moulton ?? Date of Service: 05/23/24 ?? Procedure(s): XR knee RT 3V ?? Accession Number(s): [id number] ? cc: Nahomy Davies MD; Jeannie Moulton [...] DD/ 1339 ? TD/TT: 05/23/24 1404 ? Director Occupational: ? Procedure Note Donabbyter, Image - 05/23/2024 [place] [address] XRay Report Signed Patient: Gifty DiasR#: [id number] : 1945cct:[id number] Age/Sex: 79 / FADM Date: 05/23/24 Loc: HO.ED Attending Dr: Ordering Physician: Jeannie Moulton Date of Service: 05/23/24 Procedure(s): XR knee RT 3V Accession Number(s): [id number] cc: Nahomy Davies MD; Jeannie Moulton EXAMINATION: [...] 05/23/24 1410 DD/ 1339 TD/TT: 05/23/24 1404 Director Occupational: [facility] External Provider IMG XR PROCEDURES Final Result * XR Forearm 2 Views Right (05/23/2024 1:39 PM EST) Anatomical Region Laterality Modality Upper Extremities, Forearm Right Radio graphic Imaging 05/23/2024 1:39 PM EST Narrative 05/23/2024 2:11 PM EST ? [facility] ?[address] ?[place] [address] ?XRay Report ? Signed ? Patient: Sampson Louie,Arlette ?MR#: MM ?? [id number] ? : 1945 ?Acct:[id number] ? Age/Sex: 79 / F ?ADM Date: 05/23/24 ? Loc: HO.ED ? Attending Dr: ? Ordering Physician: Jeannie Moulton ?? Date of Service: 05/23/24 ?? Procedure(s): XR forearm RT 2V ?? Accession Number(s): [id number] ? cc: Nahomy Davies MD; Jeannie Moulton [...] DD/ 1339 ? TD/TT: 05/23/24 1404 ? Director Occupational: ? Procedure Note Ulysses, Image - 05/23/[address] [address] XRay Report Signed Patient: Clarisa Dias#: [id number] : 7Acct:[id number] Age/Sex: 79 / FADM Date: 05/23/24 Loc: HO.ED Attending Dr: Ordering Physician: Jeannie Moulton Date of Service: 05/23/24 Procedure(s): XR forearm RT 2V Accession Number(s): [id number] cc: Nahomy Davies MD; Jeannie Moulton EXAMINATION: [...] 05/23/24 1408 DD/ 1339 TD/TT: 05/23/24 1404 Director Occupational: [facility] External Provider IMG XR PROCEDURES Final Result * XR Elbow 3+ Views Right (05/23/2024 1:39 PM EST) Anatomical Region Laterality Modality Upper Extremities, Elbow Right Radiogr aphic Imaging 05/23/2024 1:39 PM EST Narrative 05/23/2024 2:13 PM EST ? [facility] ?[address] ?[place] [address] ?XRay Report ? Signed ? Patient: Adrián Palma,Areltte ?MR#: MM ?? [id number] ? : 1945 ?Acct:[id number] ? Age/Sex: 79 / F ?ADM Date: 05/23/24 ? Loc: HO.ED ? Attending Dr: ? Ordering Physician: Jeannie Moulton ?? Date of Service: 05/23/24 ?? Procedure(s): XR elbow RT min 3V ?? Accession Number(s): [id number] ? cc: Nahomy Davies MD; Jeannie Moulton [...] DD/ 1339 ? TD/TT: 05/23/24 1404 ? Director Occupational: ? Procedure Note Ulysses, Image - 05/23/[address] [address] XRay Report Signed Patient: Gifty DiasR#: [id number] : 1945cct:[id number] Age/Sex: 79 / FADM Date: 05/23/24 Loc: .ED Attending Dr: Ordering Physician: Jeannie Moulton Date of Service: 05/23/24 Procedure(s): XR elbow RT min 3V Accession Number(s): [id number] cc: Nahomy Davies MD; Jeannie Moulton EXAMINATION: [...] Grzegorz Borden MD 05/23/2024 02:10 PM EST RP Dictated By: Grzegorz Borden MD Signed By: <Electronically signed by Grzegorz Borden MD in OV> 05/23/24 1410 DD/ 1339 TD/TT: 05/23/24 1404 Director Occupational: [facility] External Provider IMG XR PROCEDURES Final Result * (ABNORMAL) Albumin, Random Urine W/Creatinine (11/22/2023 12:40 PM EDT) Creatinine, Urine 66.52 mg/dL [facility] Microalbumin Urine 23.0 mg/L [facility] Microalbum Creatinine Ratio Ur 34.5(H) <30 ug/mg cr [facility] Comment:Albumin/Creatinine R atio Reference Ranges: Normal: < 30 ug/mg creatinine Microalbuminuria: 30 - 300 ug/mg creatinineClinical Albuminuria: > 300 ug/mg creatinine 11/22/2023 12:4 0 PM EDT 11/22/2023 5:12 PM EDT Result [facility] Nahomy Kessler MD LAB URINE ORDERAB LES Final Result [facility] [address] [place] [address] [phone] * (ABNORMAL) POCT HGB A1C (11/22/2023 10:45 AM EDT) Hemoglobin A1C 8.0(A) 4.0 - 6.0 % QC Media Lot # [id number] Lot# Expiration Date ,722,951 Blood 11/22/2023 10:4 5 AM EDT Nahomy Kessler MD POINT OF CARE ADWOA T ENTER/EDIT ORDERABLES Final Result * (ABNORMAL) Lipid Panel, Standard (11/14/2023 10:00 AM EDT) Triglycerides 293(H) <150 mg/dL [facility] Comment:Desirable Triglyceri de: less than 150 mg/dLBorderline High Triglyceride 150-199 mg/dLHigh Triglyceride: 200-499 mg/dLVery High Triglyceride: greater than or equal to 5OO mg/dL Cholesterol 135 <200 mg/dL [facility] Comment:Desirable Cholestero l: less than 200 mg/dLBorderline High Cholesterol: 200-239 mg/dLHigh Cholesterol: greater than 239 mg/dL LDL Cholesterol Calculated 40 <100 mg/dL [facility] Comment:Desirable LDL: less than 100 mg/dLNear Optimal/Above Optimal LDL: 110- 129 mg/dLBorderline High LDL: 130-159 mg/dLHigh LDL: 160-189 mg/dLVery High LDL: greater than or equal to 190 mg/dL HDL Cholesterol 37(L) >40 mg/dL [facility] Comment:Desirable HDL: great er than 40 mg/dL Note: This HDL assay may give artificially low results in patients with liver disease. Blood Venous blood specimen / Unknown 11/14/2023 10:00 AM EDT 11/14/2023 11:16 AM EDT us Nahomy Kessler MD LAB BLOOD ORDERAB LES Final Result Performing Organization Address [facility]/ZIP Co de Phone Number [facility] [address] [place] [phone] * Hepatitis C Antibody with Reflex to HCV, RNA, Quantitative, Real-Time PCR (03/22/2023 8:23 AM EST) Hepatitis C Antibody Nonreactive Nonreactive [facility] Comment:Antibodies to HCV no t detected; does not exclude early acuteHCV infection. Blood Venous blood specimen / Unknown 03/22/2023 8:23 AM EST 03/22/2023 11:12 AM EST us Nahomy Kessler MD LAB BLOOD ORDERAB LES Final Result [facility] [address] [place] [phone] [phone] from Last 3 Months or Most Recently Relevant to Health Maintenance Insurance [facility] Care Teams Automotive Generator Repairer Relationship Specialty Start Date End Date Nahomy Davies MD [address] [place] [address] PCP - General Internal Medicine 01/13/23
--- OUTSIDE RECORDS SUMMARY | 2024-06-20 12:04 | XMS_ITS | Encounter Summary ---
Author Organization [employer] Address [address] [facility] [address] [place] [address] Care Team Providers Care Manager Call Center Name Role Phone Nahomy Davies MD Primary Care Pro vider Reason for Visit * Reason Comments Med Refill Encounter Details Date Type Department Care Team ([facility] st Contact Info) Description 07/04/2023 Refill [facility] [address] [place], [place] [phone] Nahomy Davies MD [address] [place] [address] Social History Tobacco Use Types Packs/Day Years [...] documented as of this encounter Care Teams Manager Call Center Relationship Specialty Start Date End Date Nahomy Davies MD [address] [place] [phone] PCP - General Internal Medicine 01/13/23 documented as of this encounter
--- OUTSIDE RECORDS SUMMARY | 2024-06-20 12:04 | XMS_ITS | Encounter Summary ---
Author Organization [employer] Address [address] [facility] [address] 7t [place] [address] Care Team Providers Care Lamp Shade Joiner Name Role Phone Nahomy Davies MD Primary Care Pro vider Reason for Referral * Consultation (Routine) - Authorized Specialty Diagnoses / Procedures Referred By Omid t Referred To Contact Orthopaedic Surgery Diagnoses Right knee injury, initial encounter Jp Snow MD [address] [place] [address] Phone: tel: fax: [facility] [address] [place], [place] Phone: tel: Referral ID Status Reason Start Date Expiration Date Visits Requested Visits Authorized [id number] Authorized Specialty Services Required 06/06/2024 06/06/2025 1 1 * Consultation (Routine) - Closed Specialty Diagnoses / Procedures Referred By Controsa elena t Referred To Contact General Surgery Diagnoses Scalp mass Jp Snow MD [address] [place] [address] Phone: tel: fax: Kevin Enrique MD [address] 3rd [place] [address] Phone: tel: fax: Referral ID Status Reason Start Date Expiration Date V isits Requested Visits Authorized [id number] Closed Specialty Services Required 06/06/2024 06/06/2025 1 1 Reason for Visit * Reason Comments lumps on head Encounter Details Date Type Department Care Team (Late st Contact Info) Description 06/06/2024 11:00 AM EST Office Visit [facility] [address] [place] [address] Jp Snow MD [address] [place] [address] Scalp mass (Primary Dx); Right knee injury, initial encounter Social History Tobacco Use Types Packs/Day Years [...] 9.6 oz) 06/06/2024 11:34 AM EST Height - - Body Mass Index 37.13 05/15/2024 10:17 AM EST documented in this encounter Progress Notes * Jp Snow MD - 06/06/2024 11:00 AM EST Subjective Patient ID: Arlette Dominguez is a 79 y.o. female. Stummel Selector: daughter. ANTON Chong has several month h/o lumps on scalp, occasionally painful, hurts a little to touch. Tylenol helps when pain occurs. No fever, head trauma. Also has ongoing pain in posterior right knee that started when she fell trying to get on a bus 05/23/2024. Was seen in [facility] IMPRESSION: Bicompartmental strength sclerosis without acute fracture or dislocation. Taking Tylenol and lidocaine patches, Emla cream with transient improvement. Lives alone. Never smoked. No EtOH Patient Active Problem List Diagnosis Acquired hypothyroidism Coronary atherosclerosis Cobalamin deficiency Essential hypertension Essential tremor Gastroesophageal reflux disease without esophagitis Mixed hyperlipidemia Mild persistent asthma Multinodular goiter Obesity Osteopenia determined by x-ray Type 2 diabetes mellitus ([facility]) Health care maintenance Lower extremity edema Carpal tunnel syndrome Knee pain Chronic lower back pain Insomnia Trigger middle finger of left hand Stress incontinence of urine TIA (transient ischemic attack) Cervical myelopathy ([facility]) Parotid nodule Left shoulder pain Intestinal metaplasia of stomach Lesion of external ear canal, left The following portions of the chart were reviewed this encounter and updated as appropriate: Tobacco Allergies Meds Problems Med Hx Surg Hx Fam Hx Review of Systems Constitutional: Negative for fever. Respiratory: Negative for shortness of breath. Cardiovascular: Negative for chest pain. Gastrointestinal: Negative for abdominal pain. Musculoskeletal: Positive for arthralgias. Skin: Negative for rash. Neurological: Negative for headaches. Objective Physical Exam Constitutional: Appearance: Normal appearance. HENT: Nose: Nose normal. Eyes: Conjunctiva/sclera: Conjunctivae normal. Pupils: Pupils are equal, round, and reactive to light. Cardiovascular: Rate and Rhythm: Normal rate and regular rhythm. Pulmonary: Effort: Pulmonary effort is normal. Breath sounds: Normal breath sounds. Musculoskeletal: General: Normal range of motion. Comments: Right knee: tenderness over posterolateral knee. Full ROM with pain. No joint instabilityor appreciable effusion. Skin: Findings: No rash. Comments: 3 firm, small, slightly tender, mobile s.c. masses in scalp, 1 in right frontal area, 1 in right parietal area, 1 left posterior parietal area. Neurological: Mental Status: She is alert. Gait: Gait is intact. Psychiatric: Mood and Affect: Mood normal. Behavior: Behavior normal. Procedures Assessment/Plan Diagnoses and all orders for this visit: Scalp mass Referred to general surgery. Right knee injury, initial encounter Referred to orthopedic surgery. documented in this encounter Plan of Treatment Scheduled Referrals Name Type Priority Associated Diagnoses Order Schedule Referral to General Surgery Outpatient Referral Routine Scalp mass Expected: 06/06/2024 (Approximate), Expires: 06/06/2025 Referral to Orthopaedic Surgery Outpatient Referral Routine Right knee injury, initial encounter Expected: 06/06/2024 (Approximate), Expires: 06/06/2025 documented as of this encounter Visit Diagnoses Diagnosis Scalp mass- Primary Right knee injury, initial encounter documented in this encounter Additional Health Concerns Assessment Noted Time PHQ-9 Depression Total Score: 0 04/23/19 23 9:18 AM EST documented as of this encounter Care Teams Lamp Shade Joiner Relationship Specialty Start Date End Date Nahomy Davies MD [address] [place] [id number] PCP - General Internal Medicine 01/13/23 documented as of this encounter
--- OUTSIDE RECORDS SUMMARY | 2024-06-20 12:04 | XMS_ITS | Encounter Summary ---
Author Organization [employer] Address [address] [facility] 7t [place] [address] Care Team Providers Care Hothouse Worker Name Role Phone Nahomy Davies MD Primary Care Pro vider Reason for Visit * Reason Comments Med Refill Encounter Details Date Type Department Care Team ([facility] st Contact Info) Description 06/06/2023 Refill [facility] MED[facility] [address] [place], [place] [phone] Nahomy Davies MD [address] [place] [address] Social History Tobacco Use Types Packs/Day Years [...] documented as of this encounter Care Teams Hothouse Worker Relationship Specialty Start Date End Date Nahomy Davies MD [address] [place] [phone] PCP - General Internal Medicine 01/13/23 documented as of this encounter
--- OUTSIDE RECORDS SUMMARY | 2024-06-20 12:04 | XMS_ITS | Encounter Summary ---
Author Organization [employer] Address [address] 7[address] [place] [address] Care Team Providers Care Marble Setter Name Role Phone Naohmy Davies MD Primary Care Pro vider Reason for Visit * Reason Comments Med Refill Encounter Details Date Type Department Care Team ([facility] st Contact Info) Description 07/23/2023 Refill [facility]S [address] [place], [place] [phone] Suyapa Doyle MD [address] [place] [address] Shortness of breath Social History Tobacco Use [...] documented as of this encounter Care Teams Marble Setter Relationship Specialty Start Date End Date Nahomy Davies MD [address] [place] [phone] PCP - General Internal Medicine 01/13/23 documented as of this encounter
--- OUTSIDE RECORDS SUMMARY | 2024-06-20 12:04 | XMS_ITS | Encounter Summary ---
Author Organization [employer] Address [address] 7[address] [place] [address] Care Team Providers Care Bed Rubber Name Role Phone Nahomy Davies MD Primary Care Pro vider Reason for Visit * Reason Comments Med Refill Encounter Details Date Type Department Care Team ([facility] st Contact Info) Description 05/29/2024 Refill [facility] MED & PEDS [address] [place], [place] [phone] Suyapa Doyle MD [address] [place] [address] Iron deficiency anemia, unspecified iron deficiency anemia [...] documented as of this encounter Care Teams Bed Rubber Relationship Specialty Start Date End Date Nahomy Davies MD [address] [place] [id number] PCP - General Internal Medicine 01/13/23 documented as of this encounter
--- OUTSIDE RECORDS SUMMARY | 2024-06-20 12:04 | XMS_ITS | Encounter Summary ---
Author Organization [employer] Address [address] [facility] 7t [place] [address] Care Team Providers Care Executive Admin Name Role Phone Nahomy Davies MD Primary Care Pro vider Reason for Visit * Reason Onset Date Comments Medication Question 03/25/2023 Encounter Details Date Type Department Care Team ([facility] st Contact Info) Description 03/25/2023 Telephone [facility] MED[facility]INE [address] [place] [address] Nahomy Davies MD [address] [place] [address] Medication Question Social History Tobacco Use Types [...] for FreeStyle lancets with clarifications on directions. [phone] ext [phone] documented in this encounter Plan of Treatment Not on file documented as of this encounter Visit Diagnoses Not on filedocumented in this encounter Additional Health Concerns Assessment Noted Time PHQ-9 Depression Total Score: 0 04/23/19 9:18 AM EST documented as of this encounter Care Teams Executive Admin Relationship Specialty Start Date End Date Nahomy Davies MD [address] [place] [phone] PCP - General Internal Medicine 01/13/23 documented as of this encounter
--- OUTSIDE RECORDS SUMMARY | 2024-06-20 12:04 | XMS_ITS | Encounter Summary ---
Author Organization [email or web address] Address [address] [facility] 7t [place] [address] Care Team Providers Care Casino Controller Name Role Phone Nahomy Davies MD Primary Care Pro vider Reason for Visit * Reason Onset Date Comments Medication Question 06/13/2024 Encounter Details Date Type Department Care Team (Late st Contact Info) Description 06/13/2024 Refill [facility] MED[facility]INE [address] [place] [address] Nahomy Davies MD [address] [place], [place] [phone] Type 2 diabetes mellitus with other specified complication, with long-term current use of insulin ([facility]) Social History Tobacco Use Types Packs/Day Years [...] encounter Miscellaneous Notes * Telephone Encounter - Kyara Akbar RN - 06/13/2024 1:45 PM EST Pt has Anthony 2 sensors and Mahesh precision test strips but no reader, denies having ever received it.Anthony 3 reader is not compatible with Anthony 2 sensors and Anthony 2 line now discontinued. Pended Anthony 3 cyber defense incident responder and sensors to PCP for review by covering provider. * Telephone Encounter - Florinda Ruiz - 06/13/2024 1:37 PM EST PT daughter walked in stating that PT has not received the [place] for her CGM. Calling the pharmacythey let me know that the script will need to be re-sent due to the reader 2 being discontinued by [facility]. Can a new reader be sent to [facility] on [facility]. documented in this encounter Plan of Treatment Not on file documented as of this encounter Visit Diagnoses Diagnosis Type 2 diabetes mellitus with other specified complication, with long-term current use of insulin ([facility]) documented in this encounter Additional Health Concerns Assessment Noted Time PHQ-9 Depression Total Score: 0 04/23/19 23 9:18 AM EST documented as of this encounter Care Teams Casino Controller Relationship Specialty Start Date End Date Nahomy Davies MD [address] [place] [phone] PCP - General Internal Medicine 01/13/23 documented as of this encounter
--- OUTSIDE RECORDS SUMMARY | 2024-06-20 12:04 | XMS_ITS | Encounter Summary ---
Author Organization [employer] Address [address] [facility] 7t [place] [address] Care Team Providers Care Engineer First Assistant Name Role Phone Nahomy Davies MD Primary Care Pro vider Reason for Visit * Reason Comments Med Refill Encounter Details Date Type Department Care Team ([facility] st Contact Info) Description 05/16/2024 Refill [facility] MED & PEDS [address] [place], [place] [phone] Nahomy Davies MD [address] [place], [place] [phone] Social History Tobacco Use Types Packs/Day Years [...] documented as of this encounter Care Teams Engineer First Assistant Relationship Specialty Start Date End Date Nahomy Davies MD [address] [place] [phone] PCP - General Internal Medicine 01/13/23 documented as of this encounter
--- OUTSIDE RECORDS SUMMARY | 2024-06-20 12:04 | XMS_ITS | Encounter Summary ---
Author Organization [employer] Address [address] [facility] 7t [place] [address] Care Team Providers Care Mash Grinder Name Role Phone Nahomy Davies MD Primary Care Pro vider Reason for Visit * Reason Comments Med Refill Encounter Details Date Type Department Care Team ([facility] st Contact Info) Description 06/23/2023 Refill [facility] MEDICINE [address] [place] [address] Nahomy Davies MD [address] [place] [address] Social History Tobacco Use Types Packs/Day Years [...] documented as of this encounter Care Teams Mash Grinder Relationship Specialty Start Date End Date Nahomy Davies MD [address] [place] [phone] PCP - General Internal Medicine 01/13/23 documented as of this encounter
--- OUTSIDE RECORDS SUMMARY | 2024-06-20 12:04 | XMS_ITS | Encounter Summary ---
Author Organization [employer] Address [address] [facility] 7t [place] [address] Care Team Providers Care Taker Out Name Role Phone Nancy Larose DIRECTOR FOOD SAFETY Primary Care Provider [phone] Nahomy Davies MD Primary Care Pro vider Reason for Visit * Reason Comments Med Refill Encounter Details Date Type Department Care Team (Late st Contact Info) Description 11/10/2022 Refill [facility] MEDICINE [address] [place] [address] Nancy Larose FNP [address] [place] [address] Dept [place] [address] Type 2 diabetes mellitus without complication, without long-term current use of insulin ([facility]); Sleep disturbance; Constipation, unspecified constipation [...] complication, without long-term current use of insulin ([facility]) Sleep disturbance Unspecified sleep disturbance Constipation, unspecified constipation type Essential hypertension Unspecified essential hypertension Gastroesophageal reflux disease without esophagitis Esophageal reflux Cobalamin deficiency Other B-complex deficiencies Osteopenia determined by x-ray documented in this encounter Additional Health Concerns Assessment Noted Time PHQ-9 Depression Total Score: 0 04/23/19 9:18 AM EST documented as of this encounter Care Teams Taker Out Relationship Specialty Start Date End Date Nancy Larose FNP PCP - General Family Medicine 12/08/21 01/12/23 Nahomy Davies MD [address] [place] [phone] PCP - General Internal Medicine 01/13/23 documented as of this encounter
--- OUTSIDE RECORDS SUMMARY | 2024-06-20 12:04 | XMS_ITS | Encounter Summary ---
Author Organization [employer] Address [address] [facility] 7t [place] [address] Care Team Providers Care Registered Physical Therapist Name Role Phone Nahomy Davies MD Primary Care Pro vider Reason for Visit * Reason Comments Med Refill Encounter Details Date Type Department Care Team ([facility] st Contact Info) Description 05/29/2024 Refill [facility] [address] [place], [place] [phone] Nahomy Davies MD [address] [place] [address] Mixed hyperlipidemia Social History Tobacco Use Types [...] documented as of this encounter Care Teams Registered Physical Therapist Relationship Specialty Start Date End Date Nahomy Davies MD [address] [place] [phone] PCP - General Internal Medicine 01/13/23 documented as of this encounter
--- OUTSIDE RECORDS SUMMARY | 2024-06-20 12:04 | XMS_ITS | Encounter Summary ---
Author Organization [employer] Address [address] [facility] 7t [place] [address] Care Team Providers Care Farm Instructor Name Role Phone Nahomy Davies MD Primary Care Pro vider Reason for Visit * Reason Comments Med Refill Encounter Details Date Type Department Care Team ([facility] st Contact Info) Description 06/13/2023 Refill [facility] MEDICINE [address] [place] [address] Nahomy Davies MD [address] [place] [address] Social History Tobacco Use Types Packs/Day Years [...] documented as of this encounter Care Teams Farm Instructor Relationship Specialty Start Date End Date Nahomy Davies MD [address] [place] [phone] PCP - General Internal Medicine 01/13/23 documented as of this encounter
--- OUTSIDE RECORDS SUMMARY | 2024-06-20 12:04 | XMS_ITS | Encounter Summary ---
Author Organization [employer] Address [address] [facility] 7t [place] [address] Care Team Providers Care Child Welfare Caseworker Name Role Phone Nahomy Davies MD Primary Care Pro vider Reason for Visit * Reason Comments Med Refill Encounter Details Date Type Department Care Team ([facility] st Contact Info) Description 06/05/2023 Refill [facility] MED[facility] [address] [place], [place] [phone] Nahomy Davies MD [address] [place] [address] Social History Tobacco Use Types Packs/Day Years [...] as of this encounter Care Teams Child Welfare Caseworker Relationship Specialty Start Date End Date Nahomy Davies MD [address] [place] [phone] PCP - General Internal Medicine 01/13/23 documented as of this encounter
== END 2024-06-20 11:20 | disposition home or self-care (01) ==
LOC: HO.HGI 10:28
PROVIDERS: PCP Student in an Organized Health Care Education/Training Program; Visit Provider Nurse Practitioner Family
DX: D12.6 Benign neoplasm of colon, unspecified (principal); K59.09 Other constipation; K21.9 Gastro-esophageal reflux disease without esophagitis; K31.7 Polyp of stomach and duodenum
CPT/HCPCS: 99214; G2211

== ENCOUNTER → 2024-06-20 10:28 | Outpatient (BNVA) | payer OTHER, SELFPAY | PROVIDERS: PCP Student in an Organized Health Care Education/Training Program; Visit Provider Nurse Practitioner Family | DX: K59.09 Other constipation (principal); K21.9 Gastro-esophageal reflux disease without esophagitis; K31.7 Polyp of stomach and duodenum; D12.6 Benign neoplasm of colon, unspecified | CPT/HCPCS: 99212 ==

== ENCOUNTER 2024-07-25 13:58 | Emergency (ER) | payer OTHER, SELFPAY ==
--- NOTE | ~2024-07-25 | CT_ITS ---
EXAMINATION: CT HEAD WITHOUT CONTRAST CLINICAL INFORMATION: Headache, dizziness COMPARISON: 09/02/2023. TECHNIQUE: Contiguous axial imaging was performed from the skull base to vertex without intravenous administration of contrast. This CT examination was performed using dose optimization techniques as appropriate, variously including the following: *Automated exposure control *Adjustment of mA and/or kV according to patient size (this includes techniques or standardized protocols for targeted exams where dose is matched to indication/reason for exam; i.e. extremities or head) *Use of iterative reconstruction technique FINDINGS: There is no evidence of intracranial hemorrhage or extra-axial fluid collection. There is no mass effect, or edema. No CT evidence of acute territorial infarct. Ventricles, sulci, and cisterns are normal in size and configuration for patient age. No hydrocephalus. No midline shift. Negative hyperdense MCA sign. Negative insular ribbon sign. Patchy periventricular and deep white matter hypoattenuation is consistent with mild to moderate small vessel ischemic changes. Normal pituitary. Mild atheromatous calcification of the bilateral carotid siphons and V4 segments vertebral arteries bilaterally. Globes and orbital contents image normally. There are bilateral lens implants. No extracranial soft tissue abnormalities. The paranasal sinuses, mastoid air cells, and tympanic cavities are normally aerated. No suspicious bony abnormalities. There are no acute fractures evident. CT/CT head/brain wo IV con IMPRESSION: 1. No acute intracranial abnormalities. 2. Stable chronic changes. Electronically signed by: Jony Jama MD 07/25/2024 04:31 PM EDT
--- NOTE | ~2024-07-25 | XR_ITS ---
EXAMINATION: XR CHEST CLINICAL INFORMATION: chest pain COMPARISON: 09/02/2023. TECHNIQUE: 2 views of the chest were obtained. FINDINGS: The cardiac, hilar, and mediastinal contours are normal. The lungs are clear bilaterally. There is no pneumothorax or pleural effusion. There is no focal osseous or soft tissue abnormality. There are degenerative changes in the spine. XR/XR chest 2V IMPRESSION: No active pulmonary disease. Electronically signed by: Jony Jama MD 07/25/2024 03:02 PM EDT
--- NOTE | 2024-07-25 13:59 | ECG_ITS ---
Test Reason : CP Blood Pressure : */* mmHG Vent. Rate : 59 BPM Atrial Rate : 59 BPM P-R Int : 192 ms QRS Dur : 88 ms QT Int : 452 ms P-R-T Axes : 47 -29 -33 degrees QTcB Int : 447 ms Sinus bradycardia Moderate voltage criteria for LVH, may be normal variant ( R in aVL , [place] product ) T wave abnormality, consider anterolateral ischemia Abnormal ECG When compared with ECG of 02-Sep-2023 00:40, T wave inversion now evident in Anterolateral leads Referred By: Generic ED Physician Electronically Signed By: COREEN CROWE MD
--- NOTE | 2024-07-25 14:03 | ED.GENADULT ---
HPI - General Adult General Chief complaint: Chest Pain Stated complaint: chest pain Time Seen by Provider: 07/25/24 14:02 Source: patient, EMS, RN notes reviewed, old records reviewed and house principal Mode of arrival: EMS Limitations: language barrier History of Present Illness ED Provider: Ramin HPI narrative: Patient is a 79-year-old [place]-speaking female with history of DM, hypothyroidism, dysphagia, nontoxic multinodular goiter, CAD, chronic constipation, asthma, chronic restrictive lung disease presenting to the emergency department with complaint of chest pain which radiates to her back, intermittent dizziness which occurs with changing positions from lying to sitting or sitting to standing, headache. States symptoms began yesterday, chest pain began this morning. Reports some diarrhea as initial symptoms which is improving. Mild lower abdominal pain. Complains of nausea but denies vomiting. Subjective fevers. MD complaint: Chest pain, headache, dizziness Onset (ago): day(s) Related Data Home Medications ?Medication ?Instructions ?Recorded ?Confirmed blood sugar diagnostic (FreeStyle #10 ea 02/12/20 12/09/23 Test strips) lancets 28 gauge (FreeStyle #100 ea 02/12/20 12/09/23 Lancets) metoprolol succinate 50 mg 50 mg PO DAILY 02/12/20 05/21/24 tablet,extended release 24 hr pregabalin 100 mg capsule (Lyrica) 100 mg PO BID 02/12/20 05/21/24 aspirin 81 mg tablet,delayed 81 mg PO DAILY 03/18/20 05/21/24 release pen needle, diabetic 31 gauge x #1,200 ea 06/23/21 12/09/23/16 (Unifine Pentips) diclofenac sodium 1 % topical gel 1 ea topical DAILY 11/03/21 05/21/24 blood pressure test kit-large #1 ea 07/12/23 12/09/23 flash glucose sensor (FreeStyle #1 ea 09/30/23 12/09/23 Anthony 2 Sensor kit) alcohol swabs (Alcohol Prep Pads) pad topical 12/27/23 05/21/24 insulin glargine 100 unit/mL (3 18 unit subcut BEDTIME 12/27/23 05/21/24 mL) subcutaneous pen (Lantus Solostar U-100 Insulin) lidocaine 5 % topical patch 1 patch topical DAILY 12/27/23 05/21/24 celecoxib 100 mg capsule 100 mg PO DAILY 05/21/24 05/21/24 diazepam 2 mg tablet 2 mg PO BEDTIME PRN 06/20/24 fluticasone propionate 110 2 puff inhalation BID 06/20/24 mcg/actuation HFA aerosol inhaler glipizide 2.5 mg tablet 2.5 mg PO DAILY 06/20/24 glucose 3.75 gram chewable tablet g PO PRN 06/20/24 losartan 50 mg-hydrochlorothiazide 1 tab PO DAILY 06/20/24 12.5 mg tablet Previous Rx's ?Medication ?Instructions ?Recorded Levoxyl 75 mcg tablet 75 mcg PO DAILY #90 tabs 12/08/21 (levothyroxine) omeprazole 20 mg capsule,delayed 20 mg PO DAILY #90 caps 06/20/24 release sennosides 8.6 mg tablet (Natural 17.2 mg (2 x 8.6 mg) PO BEDTIME 06/20/24 Senna Laxative) constipation #180 tabs Allergies Allergy/AdvReac Type Severity Reaction Status Date / Time lisinopril Allergy Intermediate itching Verified 07/25/24 14:14 Penicillins Allergy Intermediate rash/hives Verified 07/25/24 14:14 black pepper Allergy Mild Unknown Verified 07/25/24 14:14 fluticasone [From Flonase] Allergy Mild Unknown Verified 07/25/24 14:14 Review of Systems Review of Systems: As per HPI Yes all other systems are reviewed and are negative Constitutional: Constitutional: Reports as per HPI PMFSH Past Medical History Medical History Tubular adenoma of colon Chronic restrictive lung disease Insomnia On beta anish at home History of COVID-19 Asthma Chronic constipation Broken arm CAD (coronary artery disease) HTN (hypertension) Hyperlipidemia Diabetes mellitus Dyspnea Dysphagia Non-toxic multinodular goiter Hypothyroidism Surgical History H/O thyroidectomy History of surgery Hx of elbow surgery History of surgery on arm Hx of cholecystectomy History of partial hysterectomy Hx of cataract surgery History of tubal ligation Hx of tonsillectomy History of carpal tunnel release Hx of colonoscopy Family History Family History Father Throat cancer Heart disease CVD (cardiovascular disease) Mother Stomach cancer Type 2 diabetes mellitus Arthritis of knee Hypertension Social History Social History Household Members: None Household Members Other:: self Housing: Apartment Are you a primary health care manager to a significant other at home: No Do you presently have visiting nurse or other home services: No Alcohol intake: never Patient Tobacco Use Status: Never used Tobacco Smoked in Last 30 Days: No Second Hand Smoke Exposure: No Use of substances other than those prescribed or required for medical reasons: No Advance Directives: No Advance Directives Information Provided: Yes service: No Current occupational status: retired Current occupation: right handed Physical Exam ED Vital Signs: Vital Signs - 24 hr 07/25/24 14:12 07/25/24 16:19 Temperature 98.2 F 97.8 F Pulse Rate 57 61 Respiratory Rate 15 13 Blood Pressure 138/64 141/80 H Pulse Oximetry 98 98 Oxygen Delivery Method Room Air Room Air BMI result Body Mass Index 37.3 Vital signs have been reviewed and appear to be correct. Blood pressure normal. Heart rate normal. Respiratory rate normal. Temperature normal. Oxygen saturation normal. Const General: cooperative, healthy appearing and no acute distress Orientation/consciousness: oriented to person, oriented to place, oriented to time and patient oriented x3 Limitations: no limitations HENMT Head: Yes normocephalic and Yes atraumatic Ears: external ears normal General nose exam: Normal external nose present Face and sinus: Yes face symmetric Mouth: oropharynx normal and moist mucous membranes Throat: Yes uvula midline Eyes Pupils: Equal, round and reactive pupils present Neck Neck: Yes normal visual inspection and Yes supple Resp Effort & Inspection: normal respiratory effort and able to speak in complete sentences Auscultation: clear to auscultation bilaterally Cardio Rate: regular rate Rhythm: regular rhythm Heart sounds: S1 normal heart sound present and S2 normal heart sound present GI Palpation (GI): Soft to palpation and nontender Auscultation: normoactive bowel sounds General: Yes no CVA tenderness Back/Spine/Pelvis Back: no CVA tenderness Skin General skin exam: elasticity normal and turgor normal Neuro General: oriented to person, oriented to place, oriented to time, patient oriented x3, moves all extremities, no focal motor deficits and CN's II-XI intact bilaterally Cranial nerves: Yes Equal, round and reactive pupils present Cognition (Neuro): normal cognition Extrem General: Yes full ROM, Yes no pedal edema and Yes no calf tenderness Psych Mental Status: mental status grossly normal Affect: normal affect Thought process: Normal thought process present NIH Stroke Scale Internal: Initial- Upon Arrival Time: 15:00 Level of Consciousness: Alert Level of Consciousness Questions: Answers both questions correctly Level of Consciousness Commands: Performs both tasks correctly Best Gaze: Normal Visual: No visual loss Facial Palsy: Normal Motor Arm (Right): No drift Motor Arm (Left): No drift Motor Leg (Right): No drift Motor Leg (Left): No drift Limb Ataxia: Absent Sensory: Normal Best Language: No aphasia Dysarthia: Normal Extinction and Inattention: No abnormality Score: 0 Medications Administered Discontinued Medications Generic Name Dose Route Start Last Admin Trade Name Yohannesq PRN Reason Stop Dose Admin Acetaminophen 650 mg 07/25/24 16:00 07/25/24 16:17 Acetaminophen 325 Mg Tablet PO 07/25/24 16:01 650 mg ONCE ONE Administration Ondansetron HCl 4 mg 07/25/24 16:00 07/25/24 16:17 Ondansetron Odt 4 Mg Tab.Rapdis TRANSLINGU 07/25/24 16:01 4 mg ONCE ONE Administration Medical Decision Making Medical Decision Making [facility] Narrative: Patient is a 79-year-old [place]-speaking female with history of DM, hypothyroidism, dysphagia, nontoxic multinodular goiter, CAD, chronic constipation, asthma, chronic restrictive lung disease presenting to the emergency department with complaint of chest pain which radiates to her back, intermittent dizziness which occurs with changing positions from lying to sitting or sitting to standing, headache. On exam patient is awake, A+Ox3, VS WNL, afebrile, normal neurological exam without focal deficits, physical exam findings as above. Given reported symptoms and physical exam findings, initial differential includes but is not limited to ACS, viral illness, COVID, flu, electrolyte abnormality, dehydration. Less likely ICH/CVA has no focal neurological deficits, however, will obtain CT head. Labs notable for no leukocytosis, slight anemia, mildly elevated alk phos, history of same in the past, negative troponin x2. X-ray chest notable for no evidence of pneumonia, ptx. CT head without acute abnormality. My interpretation is in agreement with the radiologist's interpretation. Viral panel negative. Results discussed with patient and all questions answered. Advised patient to follow up with PCP and sales inspector for further evaluation. Return precautions discussed. Patient verbalized understanding of and agreement with plan. Patient requesting medication for reflux prior to discharge, Maalox ordered. In-person printed circuit boards router was utilized for all interactions, assessments, and discussions. Differential Diagnosis Differential Diagnoses: The differential diagnosis associated with the presentation includes as per [facility] Admission/Observation Consideration of admission/observation: Escalation of care including admission/observation considered Patient would have been admitted to the hospital had their work up had any findings where hospital admission was appropriate and their clinical presentation warranted hospital admission. Lab Data [facility] Lab Attestation statement: I reviewed the patient's lab results. as per [facility] 07/25/24 14:21 07/25/24 14:21 Labs: Lab Results 07/25/24 07/25/24 Range/Units 14:21 17:03 WBC 7.7 (4.8-10.8) X10*3/uL RBC 4.00 L (4.20-5.50) X10*6/uL Hgb 11.2 L (12.0-16.0) g/dl Hct 33.6 L (37.0-47.0) % MCV 84.0 (80.0-98.0) fL MCH 28.0 (27.0-33.0) pg MCHC 33.3 (31.0-35.0) g/dl RDW 16.4 H (11.0-16.0) % Plt Count 231 (160-400) X10*3/uL MPV 9.3 L (9.4-12.3) fL Immature Gran % (Auto) 0.4 (0.0-0.4) % Neut % (Auto) 37.8 L (45-73) % Lymph % (Auto) 48.2 H (20-40) % [place] % (Auto) 11.3 H (2-11) % Eos % (Auto) 1.8 (0-4) % Baso % (Auto) 0.5 (0-2) % Lymph # (Auto) 3.7 (1.2-4.9) X10*3/uL [place] # (Auto) 0.9 (0.1-1.2) X10*3/uL Eos # (Auto) 0.1 (0.0-0.4) X10*3/uL Baso # (Auto) 0.0 (0.0-0.2) X10*3/uL Abs Immat Gran (auto) 0.03 (0.00-0.03) X10*3/uL Absolute Neuts (auto) 2.9 (2.0-8.3) x10*3/uL Absolute Nucleated RBC 0.000 (0.0-0.012) X10*3/uL Nucleated RBC % (auto) 0.0 (0.0-0.2) /100WBC PT 11.5 (10.9-12.4) SEC INR 1.0 (0.9-1.1) Sodium 141 (135-145) mmol/L Potassium 4.3 (3.3-5.1) mmol/L Chloride 108 (96-108) mmol/L Carbon Dioxide 27 (22-29) mmol/L Anion Gap 10 L (12-20) BUN 10 (9-16) mg/dL Creatinine 0.67 (0.5-1.4) mg/dL Estim Creat Clear Calc 76.0 Estimated GFR > 60 Random Glucose 150 H (60-115) mg/dL Calcium 9.2 (8.4-10.2) mg/dL Magnesium 1.8 (1.6-2.6) mg/dL Total Bilirubin 0.3 (0.0-1.0) mg/dL AST 27 (5-31) U/L ALT 24 (0-31) U/L Alkaline Phosphatase 137 H (39-117) U/L Troponin I High Sens < 2.7 D < 2.7 (<3.5-17.0) ng/L B-Natriuretic Peptide 13 (<100) pg/mL Total Protein 6.7 (6.5-8.0) g/dL Albumin 3.7 (3.5-5.0) g/dL Influenza Type A (PCR) NEGATIVE (Negative) Influenza Type B (PCR) NEGATIVE (Negative) RSV RNA Qual (PCR) NEGATIVE (Negative) SARS-CoV-2 RNA (RT-PCR) NEGATIVE (Negative) Independent Interpretation I performed an independent interpretation of an: EKG (sinus bradycardia, rate 59bpm, normal MA interval, slightly prolonged QTc, new T wave inversion in anterolateral leads), Plain X-Ray and CT Scan Interpretation: X-ray chest notable for no evidence of pneumonia, ptx. CT head without acute abnormality. Radiology Impression Discussion of test interpretation with radiology: I have reviewed the radiologist's reading. Radiologist Impression: XR/XR chest 2V IMPRESSION: No active pulmonary disease. CT/CT head/brain wo IV con IMPRESSION: 1. No acute intracranial abnormalities. 2. Stable chronic changes. External Record Review External record reviewed: Inpatient record, Office record and Outpatient record Discharge Plan Discharge Clinical Impression: Chest pain Patient Disposition: Home, Self-Care Instructions: Chest Pain (DC) Additional Instructions: You were evaluated in the emergency department today for chest pain and headache. Your evaluation has shown no signs of medical conditions requiring emergent intervention at this time, however we recommend that you follow-up with your primary care physician and your sales inspector for further testing as an outpatient. Please schedule an appointment for follow-up with your primary care physician as soon as possible. Return to the emergency department if you experience worsening or uncontrolled chest pain, shortness of breath, lightheadedness, feeling faint, loss of consciousness, nausea, vomiting, or any other concerning symptoms. Call to establish and follow up with a primary care provider. If you already have a primary care provider, please follow up with them. Llame para establecer y hacer un seguimiento con un proveedor de atenci?n primaria. Si ya tiene un proveedor de atenci?n primaria, susan un seguimiento con ?l. Prescriptions: No Action levothyroxine [Levoxyl] 75 mcg tablet 75 mcg PO DAILY Qty: 90 3RF pregabalin [Lyrica] 100 mg capsule 100 mg PO BID metoprolol succinate 50 mg tablet extended release 24 hr 50 mg PO DAILY (DME) lancets [FreeStyle Lancets] 28 gauge misc See Rx Instructions .ROUTE .MEDSUPPLY Qty: 100 Rx Instructions: As directed (DME) FreeStyle Test Strip See Rx Instructions .ROUTE .MEDSUPPLY Qty: 10 Rx Instructions: As directed Lantus Solostar U-100 Insulin 100 unit/mL (3 mL) insulin pen 18 unit subcut BEDTIME aspirin 81 mg tablet,delayed release (DR/EC) 81 mg PO DAILY (DME) pen needle, diabetic [Unifine Pentips] 31 gauge x 5/16 needle See Rx Instructions .ROUTE .MEDSUPPLY Qty: 1200 Rx Instructions: As directed diclofenac sodium 1 % gel 1 ea topical DAILY (DME) FreeStyle Anthony 2 Sensor Kit See Rx Instructions .ROUTE .MEDSUPPLY Qty: 1 Rx Instructions: As directed celecoxib 100 mg capsule 100 mg PO DAILY (DME) blood pressure test kit-large Kit See Rx Instructions .ROUTE BID Qty: 1 Rx Instructions: As directed alcohol swabs [Alcohol Prep Pads] Pads, Medicated topical lidocaine 5 % adhesive patch,medicated 1 patch topical DAILY glucose 3.75 gram tablet,chewable PO PRN diazepam 2 mg tablet 2 mg PO BEDTIME PRN losartan-hydrochlorothiazide 50-12.5 mg tablet 1 tab PO DAILY fluticasone propionate 110 mcg/actuation HFA aerosol inhaler 2 puff inhalation BID glipizide 2.5 mg tablet 2.5 mg PO DAILY sennosides [Natural Senna Laxative] 8.6 mg tablet 17.2 mg PO BEDTIME Qty: 180 3RF omeprazole 20 mg capsule,delayed release(DR/EC) 20 mg PO DAILY Qty: 90 2RF Print Language: [place]
[2024-07-25 14:04] VITALS: BP 145/79; PULSE 77; O2SAT 97
[2024-07-25 14:12] VITALS: BP 138/64; PULSE 57; RESP 15; TEMP 36.8; O2SAT 98; BMI 37.3
[2024-07-25 14:27] LABS: MANUAL DIFF FLAG NO
[2024-07-25 14:28] LABS: Basophils Percent Auto 0.5 % (0-2); Eosinophils Absolute Auto 0.1 X10*3/uL (0.0-0.4); Eosinophils Percent Auto 1.8 % (0-4); Hematocrit 33.6 % (37.0-47.0); Hemoglobin 11.2 g/dl (12.0-16.0); Imm Gran Abs Auto 0.03 X10*3/uL (0.00-0.03); Imm Gran Pct Auto 0.4 % (0.0-0.4); Lymphocytes Absolute Auto 3.7 X10*3/uL (1.2-4.9); Lymphocytes Percent Auto 48.2 % (20-40); Mean Corpuscular HGB Conc 33.3 g/dl (31.0-35.0); Mean Platelet Volume 9.3 fL (9.4-12.3); Monocytes Absolute Auto 0.9 X10*3/uL (0.1-1.2); Monocytes Percent Auto 11.3 % (2-11); Neutrophils Absolute Auto 2.9 x10*3/uL (2.0-8.3); Neutrophils Percent Auto 37.8 % (45-73); Platelet Count 231 X10*3/uL (160-400); Red Cell Distribution Width 16.4 % (11.0-16.0); White Blood Count 7.7 X10*3/uL (4.8-10.8)
[2024-07-25 14:35] LABS: Prothrombin Time 11.5 SEC (10.9-12.4)
[2024-07-25 14:51] LABS: B Type Natriuretic Peptide 13 pg/mL (<100)
[2024-07-25 14:59] LABS: Alanine Aminotransferase 24 U/L (0-31); Albumin Level 3.7 g/dL (3.5-5.0); Alkaline Phosphatase 137 U/L (39-117); Anion Gap 10 (12-20); Aspartate Amino Transferase 27 U/L (5-31); Bilirubin Total 0.3 mg/dL (0.0-1.0); Blood Urea Nitrogen 10 mg/dL (9-16); Calcium 9.2 mg/dL (8.4-10.2); Carbon Dioxide 27 mmol/L (22-29); Chloride 108 mmol/L (96-108); Estimated Glomerular Filt Rate > 60; Glucose Random 150 mg/dL (60-115); Magnesium 1.8 mg/dL (1.6-2.6); Potassium 4.3 mmol/L (3.3-5.1); Sodium 141 mmol/L (135-145); Total Protein 6.7 g/dL (6.5-8.0); Troponin-I High Sensitivity < 2.7 ng/L (<3.5-17.0)
[2024-07-25 15:11] LABS: Influenza A PCR NEGATIVE (Negative); Influenza B PCR NEGATIVE (Negative); Resp Syncy Virus RNA Qual PCR NEGATIVE (Negative); SARS COV2 PCR INHOUSE NEGATIVE (Negative)
[2024-07-25] MEDS: Acetaminophen 325 MG TABLET 650 MG PO (16:17)
[2024-07-25] MEDS: Ondansetron ODT 4 MG TAB.RAPDIS TRANSLINGU (16:17)
[2024-07-25 16:19] VITALS: BP 141/80; PULSE 61; RESP 13; TEMP 36.6; O2SAT 98
--- OUTSIDE RECORDS SUMMARY | 2024-07-25 17:20 | XMS_ITS | Encounter Summary ---
Author Organization [employer] Address [address] [facility] 7t [place] [address] Care Team Providers Care Swimming Pool Servicer Name Role Phone Nahomy Davies MD Primary Care Pro vider Reason for Visit * Reason Comments Med Refill Encounter Details Date Type Department Care Team ([facility] st Contact Info) Description 10/18/2023 Refill [facility] MED[facility]INE [address] [place] [address] Nahomy Davies MD [address] [place] [address] Social History Tobacco Use Types Packs/Day Years [...] as of this encounter Plan of Treatment Upcoming Encounters Date Type Department Care Team (Late st Contact Info) Description 08/06/2024 11:30 AM EDT Clinical Support [address] [address] 08/28/2024 1:15 PM EDT Office Visit [address] [address] Nahomy Davies MD [address] [place] [address] 09/26/2024 2:15 PM EDT Office Visit [address] [address] Nahomy Davies MD [address] [place] [address] documented as of this encounter Visit Diagnoses Not on filedocumented in this encounter Additional Health Concerns Assessment Noted Time PHQ-9 Depression Total Score: 0 04/23/19 9:18 AM EST documented as of this encounter Care Teams Swimming Pool Servicer Relationship Specialty Start Date End Date Nahomy Davies MD [address] [place] [phone] PCP - General Internal Medicine 01/13/23 documented as of this encounter
--- OUTSIDE RECORDS SUMMARY | 2024-07-25 17:20 | XMS_ITS | Encounter Summary ---
Author Organization [employer] [facility] Address [address] [facility] 7t [place] [address] Care Team Providers Care Middle School Director Name Role Phone Nancy Larose [facility] Primary Care Provider [phone]- [phone] Nahomy Davies MD Primary Care Pro vider Reason for Visit * Reason Comments Med Refill Encounter Details Date Type Department Care Team (Late st Contact Info) Description 08/30/2022 Refill [facility] MED[facility]INE [address] [place] [address] [phone] Anamaria Herzog FNP [address] [place] [address] Type 2 diabetes mellitus with other specified complication, with long-term current use of insulin ([facility]) Social History Tobacco Use Types [...] Description 08/06/2024 11:30 AM EDT Clinical Support [facility] [address] [place] [address] 08/28/2024 1:15 PM EDT Office Visit [facility] [address] [place] [address] Nahomy Davies MD [address] [place] [address] 09/26/2024 2:15 PM EDT Office Visit [address] [address] Nahomy Davies MD [address] [place] [address] documented as of this encounter Visit Diagnoses Diagnosis Type 2 diabetes mellitus with other specified complication, with long-term current use of insulin ([facility]) documented in this encounter Additional Health Concerns Assessment Noted Time PHQ-9 Depression Total Score: 0 04/23/19 9:18 AM EST documented as of this encounter Care Teams Middle School Director Relationship Specialty Start Date End Date Nancy Larose FNP PCP - General Family Medicine 12/08/21 01/12/23 Nahomy Davies MD [address] [place] [phone] PCP - General Internal Medicine 01/13/23 documented as of this encounter
--- OUTSIDE RECORDS SUMMARY | 2024-07-25 17:20 | XMS_ITS | Encounter Summary ---
Author Organization [employer] Address [address] [facility] 7t [place] [address] Care Team Providers Care Certified Personal Chef Name Role Phone Nahomy Davies MD Primary Care Pro vider Reason for Visit * Reason Comments Med Refill Encounter Details Date Type Department Care Team ([facility] st Contact Info) Description 11/08/2023 Refill [facility] MEDICINE [address] [place] [address] Nahomy Davies MD [address] [place] [address] Type 2 diabetes mellitus without complication, without long-term current use of insulin ([facility]) Social History Tobacco Use Types [...] Description 08/06/2024 11:30 AM EDT Clinical Support [address] [address] 08/28/2024 1:15 PM EDT Office Visit [address] [address] Nahomy Davies MD [address] [place] [address] 09/26/2024 2:15 PM EDT Office Visit [address] [address] Nahomy Davies MD [address] [place] [phone] documented as of this encounter Visit Diagnoses Diagnosis Type 2 diabetes mellitus without complication, without long-term current use of insulin ([facility]) documented in this encounter Additional Health Concerns Assessment Noted Time PHQ-9 Depression Total Score: 0 04/23/19 9:18 AM EST documented as of this encounter Care Teams Certified Personal Chef Relationship Specialty Start Date End Date Nahomy Davies MD [address] [place] [phone] PCP - General Internal Medicine 01/13/23 documented as of this encounter
--- OUTSIDE RECORDS SUMMARY | 2024-07-25 17:20 | XMS_ITS | Encounter Summary ---
Author Organization [employer] Address [address] [facility] 7t [place] [address] Care Team Providers Care Clinical Educator Name Role Phone Nahomy Davies MD Primary Care Pro vider Reason for Visit * Reason Comments Med Refill Encounter Details Date Type Department Care Team ([facility] st Contact Info) Description 11/11/2023 Refill [facility] MEDICINE [address] [place] [address] Nahomy Davies MD [address] [place] [address] Type 2 diabetes mellitus without complication, without long-term current use of insulin ([facility]) Social History [...] Description 08/06/2024 11:30 AM EDT Clinical Support [address] [address] 08/28/2024 1:15 PM EDT Office Visit [address] [address] Nahomy Davies MD [address] [place] [address] 09/26/2024 2:15 PM EDT Office Visit [address] [address] Nahomy Davies MD [address] [place] [phone] documented as of this encounter Visit Diagnoses Diagnosis Type 2 diabetes mellitus without complication, without long-term current use of insulin ([facility]) documented in this encounter Additional Health Concerns Assessment Noted Time PHQ-9 Depression Total Score: 0 04/23/19 9:18 AM EST documented as of this encounter Care Teams Clinical Educator Relationship Specialty Start Date End Date Nahomy Davies MD [address] [place] [phone] PCP - General Internal Medicine 01/13/23 documented as of this encounter
--- OUTSIDE RECORDS SUMMARY | 2024-07-25 17:20 | XMS_ITS | Encounter Summary ---
Author Organization [employer] [facility] Address [address] [facility] 7t [place] [address] Care Team Providers Care Community Pharmacist Name Role Phone Nancy Larose [facility] Primary Care Provider [phone]- [phone] Nahomy Davies MD Primary Care Pro vider Reason for Visit * Reason Comments Med Refill Encounter Details Date Type Department Care Team (Late st Contact Info) Description 09/15/2022 Refill [facility]INE [address] [place] [address] [phone] Anamaria Herzog FNP [address] [place] [address] Type 2 diabetes mellitus with other specified complication, with long-term current use of insulin ([facility]) Social History Tobacco Use Types Packs/Day [...] Description 08/06/2024 11:30 AM EDT Clinical Support [facility] [address] [place] [address] 08/28/2024 1:15 PM EDT Office Visit [facility] [address] [place] [address] Nahomy Davies MD [address] [place] [address] 09/26/2024 2:15 PM EDT Office Visit [address] [address] Nahomy Dvaies MD [address] [place] [address] documented as of this encounter Visit Diagnoses Diagnosis Type 2 diabetes mellitus with other specified complication, with long-term current use of insulin ([facility]) documented in this encounter Additional Health Concerns Assessment Noted Time PHQ-9 Depression Total Score: 0 04/23/19 9:18 AM EST documented as of this encounter Care Teams Community Pharmacist Relationship Specialty Start Date End Date Nancy Larose FNP PCP - General Family Medicine 12/08/21 01/12/23 Nahomy Davies MD [address] [place] [phone] PCP - General Internal Medicine 01/13/23 documented as of this encounter
--- OUTSIDE RECORDS SUMMARY | 2024-07-25 17:20 | XMS_ITS | Encounter Summary ---
Author Organization [employer] Address [address] [facility] 7t [place] [address] Care Team Providers Care Summer School Coordinator Name Role Phone Nahomy Davies MD Primary Care Pro vider Reason for Visit * Reason Comments Med Refill Encounter Details Date Type Department Care Team ([facility] st Contact Info) Description 10/12/[address] [facility] MED & PEDS [address] [place], [place] [phone] Nahomy Davies MD [address] [place] [address] Iron deficiency anemia, unspecified iron deficiency anemia [...] Description 08/06/2024 11:30 AM EDT Clinical Support [address] [address] 08/28/2024 1:15 PM EDT Office Visit [address] [address] Nahomy Davies MD [address] [place] [address] 09/26/2024 2:15 PM EDT Office Visit [address] [address] Nahomy Davies MD [address] [place] [address] documented as of this encounter Visit Diagnoses Diagnosis Iron deficiency anemia, unspecified iron deficiency anemia type documented in this encounter Additional Health Concerns Assessment Noted Time PHQ-9 Depression Total Score: 0 04/23/19 9:18 AM EST documented as of this encounter Care Teams Summer School Coordinator Relationship Specialty Start Date End Date Nahomy Davies MD [address] [place] [address] PCP - General Internal Medicine 01/13/23 documented as of this encounter
--- OUTSIDE RECORDS SUMMARY | 2024-07-25 17:20 | XMS_ITS | Encounter Summary ---
Author Organization [employer] [facility] Address [address] [facility] 7t [place] [address] Care Team Providers Care New Autos Delivery Driver Name Role Phone Nancy Larose [facility] Primary Care Provider +1- [phone] Nahomy Davies MD Primary Care Pro vider Reason for Visit * Reason Comments Med Refill Encounter Details Date Type Department Care Team (Late st Contact Info) Description 09/23/2022 Refill [facility] MEDICINE [address] [place] [address] Nancy Larose FNP [address] [place] [address] Dept [place] [address] Shortness of breath Social History Tobacco Use [...] Description 08/06/2024 11:30 AM EDT Clinical Support [facility] MEDICINE [address] [place] [address] 08/28/2024 1:15 PM EDT Office Visit [facility] MEDICINE [address] [place] [address] Nahomy Davies MD [address] [place] [address] [phone] 09/26/2024 2:15 PM EDT Office Visit [address] [phone] Nahomy Davies MD [address] [place] [address] documented as of this encounter Visit Diagnoses Diagnosis Shortness of breath documented in this encounter Additional Health Concerns Assessment Noted Time PHQ-9 Depression Total Score: 0 04/23/19 23 9:18 AM EST documented as of this encounter Care Teams New Autos Delivery Driver Relationship Specialty Start Date End Date Nancy Larose FNP PCP - General Family Medicine 12/08/21 01/12/23 Nahomy Davies MD [address] [place] [address] PCP - General Internal Medicine 01/13/23 documented as of this encounter
--- OUTSIDE RECORDS SUMMARY | 2024-07-25 17:20 | XMS_ITS | Encounter Summary ---
Author Organization [employer] Address [address] [facility] 7t [place] [address] Care Team Providers Care Forging Operator Name Role Phone Nahomy Davies MD Primary Care Pro vider Reason for Visit * Reason Comments Med Refill Encounter Details Date Type Department Care Team ([facility] st Contact Info) Description 11/07/2023 Refill [facility] [address] [place] [address] Nahomy Davies MD [address] [place] [address] Type 2 diabetes mellitus without complication, without long-term current use of insulin ([facility]) Social [...] Description 08/06/2024 11:30 AM EDT Clinical Support [address] [address] 08/28/2024 1:15 PM EDT Office Visit [address] [address] Nahomy Davies MD [address] [place] [address] 09/26/2024 2:15 PM EDT Office Visit [address] [address] Nahomy Davies MD [address] [place] [address] documented as of this encounter Visit Diagnoses Diagnosis Type 2 diabetes mellitus without complication, without long-term current use of insulin ([facility]) documented in this encounter Additional Health Concerns Assessment Noted Time PHQ-9 Depression Total Score: 0 04/23/19 9:18 AM EST documented as of this encounter Care Teams Forging Operator Relationship Specialty Start Date End Date Nahomy Davies MD [address] [place] [address] PCP - General Internal Medicine 01/13/23 documented as of this encounter
--- OUTSIDE RECORDS SUMMARY | 2024-07-25 17:20 | XMS_ITS | Encounter Summary ---
Author Organization [employer] Address [address] [facility] 7t [place] [address] Care Team Providers Care Sales Order Clerk Name Role Phone Nahomy Davies MD Primary Care Pro vider Reason for Visit * Reason Comments Med Refill Encounter Details Date Type Department Care Team ([facility] st Contact Info) Description 01/31/2024 Refill [facility] MEDICINE 230 [place], [place] [phone] Nahomy Davies MD 230 [place] [address] Iron deficiency anemia, unspecified iron deficiency anemia [...] Description 08/06/2024 11:30 AM EDT Clinical Support [address] [address] 08/28/2024 1:15 PM EDT Office Visit [address] [address] Nahomy Davies MD [address] [place] [address] 09/26/2024 2:15 PM EDT Office Visit [address] [address] Nahomy Davies MD [address] [place] [address] documented as of this encounter Visit Diagnoses Diagnosis Iron deficiency anemia, unspecified iron deficiency anemia type Mixed hyperlipidemia documented in this encounter Additional Health Concerns Assessment Noted Time PHQ-9 Depression Total Score: 0 04/23/19 9:18 AM EST documented as of this encounter Care Teams Sales Order Clerk Relationship Specialty Start Date End Date Nahomy Davies MD [address] [place] [phone] PCP - General Internal Medicine 01/13/23 documented as of this encounter
--- OUTSIDE RECORDS SUMMARY | 2024-07-25 17:20 | XMS_ITS | Encounter Summary ---
Author Organization [employer] Address [address] [facility] 7t [place] [address] Care Team Providers Care Manager Hiv Name Role Phone Nahomy Davies MD Primary Care Pro vider Reason for Visit * Reason Comments Med Refill Encounter Details Date Type Department Care Team ([facility] st Contact Info) Description 01/30/2024 Refill [facility] MEDICINE 230 [place], [place] [phone] Nahomy Davies MD 230 [place] [address] Iron deficiency anemia, unspecified iron deficiency anemia [...] Description 08/06/2024 11:30 AM EDT Clinical Support [address] [address] 08/28/2024 1:15 PM EDT Office Visit [address] [address] Nahomy Davies MD [address] [place] [address] 09/26/2024 2:15 PM EDT Office Visit [address] [address] Nahomy Davies MD [address] [place] [address] documented as of this encounter Visit Diagnoses Diagnosis Iron deficiency anemia, unspecified iron deficiency anemia type Mixed hyperlipidemia documented in this encounter Additional Health Concerns Assessment Noted Time PHQ-9 Depression Total Score: 0 04/23/19 9:18 AM EST documented as of this encounter Care Teams Manager Hiv Relationship Specialty Start Date End Date Nahomy Davies MD [address] [place] [address] PCP - General Internal Medicine 01/13/23 documented as of this encounter
--- OUTSIDE RECORDS SUMMARY | 2024-07-25 17:20 | XMS_ITS | Encounter Summary ---
Author Organization [employer] Address [address] [facility] 7t [place] [address] Care Team Providers Care Rn Child Name Role Phone Nahomy Davies MD Primary Care Pro vider Reason for Visit * Reason Comments Med Refill Encounter Details Date Type Department Care Team ([facility] st Contact Info) Description 12/02/2023 Refill [facility] MED & PEDS 505 [place], [place] [phone] Nahomy Davies MD 230 [place] [address] Social History Tobacco Use Types Packs/Day Years [...] Description 08/06/2024 11:30 AM EDT Clinical Support [address] [address] 08/28/2024 1:15 PM EDT Office Visit [address] [address] Nahomy Davies MD [address] [place] [address] 09/26/2024 2:15 PM EDT Office Visit [address] [address] Nahomy Davies MD [address] [place] [address] documented as of this encounter Visit Diagnoses Not on filedocumented in this encounter Additional Health Concerns Assessment Noted Time PHQ-9 Depression Total Score: 0 04/23/19 9:18 AM EST documented as of this encounter Care Teams Rn Child Relationship Specialty Start Date End Date Nahomy Davies MD [address] [place] [address] PCP - General Internal Medicine 01/13/23 documented as of this encounter
--- OUTSIDE RECORDS SUMMARY | 2024-07-25 17:20 | XMS_ITS | Encounter Summary ---
Author Organization [employer] [facility] Address [address] [place] [address] 7t [place] [address] Care Team Providers Care Store Keeper Name Role Phone Nancy Larose SNOW PLOW TRACTOR OPERATOR Primary Care Provider +1- [phone] Nahomy Davies MD Primary Care Pro vider Encounter Details Date Type Department Care Team (Late st Contact Info) Description 03/30/2022 Orders Only [facility] [address] [place] [address] [phone] Kary Lux LPN Social History Tobacco Use [...] Description 08/06/2024 11:30 AM EDT Clinical Support [facility] MEDICINE [address] [place] [address] [phone] 08/28/2024 1:15 PM EDT Office Visit [facility] MED[facility] [address] [place] [address] [phone] Nahomy Davies MD [address] [place] [address] 09/26/2024 2:15 PM EDT Office Visit [address] [phone] Nahomy Davies MD [address] [place] [address] documented as of this encounter Visit Diagnoses Not on filedocumented in this encounter Care Teams Store Keeper Relationship Specialty Start Date End Date Nancy Larose FNP PCP - General Family Medicine 12/08/21 01/12/23 Nahomy Davies MD [address] [place] [address] PCP - General Internal Medicine 01/13/23 documented as of this encounter
--- OUTSIDE RECORDS SUMMARY | 2024-07-25 17:20 | XMS_ITS | Encounter Summary ---
Author Organization [employer] Address [address] [facility] [address] 7t [place] [address] Care Team Providers Care Bag Loader Machine Operator Name Role Phone Nahomy Davies MD Primary Care Pro vider Reason for Visit * Reason Comments Med Refill Encounter Details Date Type Department Care Team ([facility] st Contact Info) Description 01/18/2024 Refill [facility] CH[facility] MED & PEDS [address] [place], [place] [phone] Suyapa Doyle MD 230 [place] [address] Type 2 diabetes mellitus with other specified complication, with long-term current use of insulin ([facility]) Social History Tobacco Use Types Packs/Day [...] Description 08/06/2024 11:30 AM EDT Clinical Support [address] [address] 08/28/2024 1:15 PM EDT Office Visit [address] [address] Nahomy Davies MD [address] [place] [address] 09/26/2024 2:15 PM EDT Office Visit [address] [address] Nahomy Davies MD [address] [place] [address] documented as of this encounter Visit Diagnoses Diagnosis Type 2 diabetes mellitus with other specified complication, with long-term current use of insulin ([facility]) documented in this encounter Additional Health Concerns Assessment Noted Time PHQ-9 Depression Total Score: 0 04/23/19 23 9:18 AM EST documented as of this encounter Care Teams Bag Loader Machine Operator Relationship Specialty Start Date End Date Nahomy Davies MD [address] [place] [address] PCP - General Internal Medicine 10/5/23 documented as of this encounter
--- OUTSIDE RECORDS SUMMARY | 2024-07-25 17:20 | XMS_ITS | Encounter Summary ---
Author Organization [employer] Address [address] [facility] 7t [place] [address] Care Team Providers Care Clinical Nurse Educator Name Role Phone Nahomy Davies MD Primary Care Pro vider Reason for Visit * Reason Comments Med Refill Encounter Details Date Type Department Care Team ([facility] st Contact Info) Description 11/08/[address] [facility] MEDICINE [address] [place] [address] Nahomy Davies MD 230 [place] [address] Type 2 diabetes mellitus without complication, without long-term current use of insulin ([facility]) Social History Tobacco Use Types [...] Description 08/06/2024 11:30 AM EDT Clinical Support [address] [address] 08/28/2024 1:15 PM EDT Office Visit [address] [address] Nahomy Davies MD [address] [place] [address] 09/26/2024 2:15 PM EDT Office Visit [address] [address] Nahomy Davies MD [address] [place] [address] documented as of this encounter Visit Diagnoses Diagnosis Type 2 diabetes mellitus without complication, without long-term current use of insulin ([facility]) documented in this encounter Additional Health Concerns Assessment Noted Time PHQ-9 Depression Total Score: 0 04/23/19 9:18 AM EST documented as of this encounter Care Teams Clinical Nurse Educator Relationship Specialty Start Date End Date Nahomy Davies MD [address] [place] [address] PCP - General Internal Medicine 01/13/23 documented as of this encounter
--- OUTSIDE RECORDS SUMMARY | 2024-07-25 17:20 | XMS_ITS | Encounter Summary ---
Author Organization [employer] Address 75 [facility] 7t [place] [address] Care Team Providers Care Retail Loss Prevention Officer Name Role Phone Nahomy Davies MD Primary Care Pro vider Reason for Visit * Reason Comments Med Refill Encounter Details Date Type Department Care Team ([facility] st Contact Info) Description 01/22/2024 Refill [facility] MEDICINE 230 [place] [address] Nahomy Davies MD 230 [place] [address] Social History Tobacco Use Types Packs/Day Years [...] 08/06/2024 11:30 AM EDT Clinical Support [address] [address] 08/28/2024 1:15 PM EDT Office Visit [address] [address] Nahomy Davies MD [address] [place] [address] 09/26/2024 2:15 PM EDT Office Visit [address] [address] Nahomy Davies MD [address] [place] [address] documented as of this encounter Visit Diagnoses Not on filedocumented in this encounter Additional Health Concerns Assessment Noted Time PHQ-9 Depression Total Score: 0 04/23/19 9:18 AM EST documented as of this encounter Care Teams Retail Loss Prevention Officer Relationship Specialty Start Date End Date Nahomy Davies MD [address] [place] [address] PCP - General Internal Medicine 01/13/23 documented as of this encounter
--- OUTSIDE RECORDS SUMMARY | 2024-07-25 17:21 | XMS_ITS | Clinical Summary ---
Author Organization [employer] Address [address] [facility] [address] [place] [address] Care Team Providers Care Hides Soaker Name Role Phone Nahomy Davies MD Primary [...] complication, without long-term current use of insulin ([facility]) APPLY A SMALL AMOUNT TOPICALLY TO AFFECTED [...] each 11 07/01/2 024 Active Continuous Glucose [employer] Retailer Sales Consultant (FreeStyle Anthony 2 [place]) device Use as directed to monitor glucose ever 8 hours. 1 each Active Continuous Glucose Sensor (FreeStyle Anthony 2 Sensor) [facility] Use as directed to monitor glucose ever 8 hours. Replace sensor every 14 days. 2 each Active insulin glargine (Lantus SoloStar) 100 UNIT/ML penIndications:Ty pe 2 diabetes mellitus with hypoglycemia without coma, with long-term current use of insulin ([facility]) Inject 18 Units under the skin at bedtime. 30 mL Active losartan (Cozaar) 25 MG tablet Take 1 tablet (25 mg) by mouth Once per day. 30 tablet 024 2024 Active cyanocobalamin (Vitamin B-12) 1000 MCG tabletIndications :Cobalamin deficiency TAKE 1 TABLET BY MOUTH ONCE A DAY 30 tablet Active Senna-Time 8.6 MG tablet TAKE 2 TABLETS BY MOUTH EVERY DAY AT BEDTIME FOR CONSTIPATION Active Diclofenac Sodium 1 % gel APPLY TOPICALLY EACH DAY IF NEEDED FOR SHOULDER PAIN (BULK) 100 g 5 Active Ascorbic Acid (vitamin C) 250 MG tabletIndications :Iron deficiency anemia, unspecified iron deficiency anemia type TAKE ONE TABLET BY MOUTH EVERY MORNING ^1R1 30 tablet 5 024 Active metFORMIN XR (Glucophage-XR) 500 MG 24 hr tabletIndications :Type 2 diabetes mellitus without complication, without long-term current use of insulin ([facility]) TAKE 2 TABLETS BY MOUTH TWO TIMES [...] complication, with long-term current use of insulin ([facility]) CHEW AND SWALLOW 4 TABLETS BY MOUTH [...] DAY ^1R1,1R4 60 tablet 3 025 Active Januvia 50 MG tablet TAKE [...] 2 diabetes mellitus without complication, unspecified whether detention insulin use ([facility]) USE TO TEST BLOOD SUGAR AND ADMINISTER INSULIN AT NOON AND IN THE EVENING (5-7 TIMES DAILY ) (BULK) 200 each 025 Active Acetaminophen Extra Strength 500 MG tabletIndications :Type 2 diabetes mellitus without complication, without long-term current use of insulin ([facility]) TAKE ONE TO TWO TABLETS BY MOUTH [...] CANDIDIASIS. DO NOT SWALLOW (BULK) 30 each 025 Active Continuous Glucose [employer] Retailer Sales Consultant (FreeStyle Anthony 3 [place]) deviceIndications :Type 2 diabetes mellitus with other specified complication, with long-term current use of insulin ([facility]) 1 each Once per day. Use as directed for CGM 1 each 025 Active Continuous Glucose Sensor (FreeStyle Anthony 3 Plus Sensor) miscIndications:T ype 2 diabetes mellitus with other specified complication, with long-term current use of insulin (CMS/HCC) 1 each every 15 days. Apply 1 every 15 days as directed for CGM 2 each 025 Active pregabalin (Lyrica) 100 MG capsule TAKE ONE CAPSULE BY MOUTH TWICE A DAY ^1R1,1R4 56 capsule 1 025 Active Icosapent Ethyl (Vascepa) 1 g capsule Take 2 capsules (2 g) by mouth with breakfast and with evening meal. 120 capsule 5 025 2025 Active pregabalin (Lyrica) 100 MG capsule TAKE ONE CAPSULE BY MOUTH TWICE A DAY ^1R1,1R4 56 capsule 5 024 2024 Discontinued omega-3 acid ethyl esters (Lovaza) 1 g capsuleIndication s:Mixed hyperlipidemia TAKE TWO CAPSULES BY MOUTH TWICE A DAY ^2R2,2R3 120 capsule 5 024 2024 Discontinued(O ther) Active Problems Problem Noted Date Diagnosed Date [...] Encounters Date Type Department Care Team Description 07/12/2024 Orders Only [facility] [address] [place] [address] Nahomy Davies MD 07/12/2024 Telephone [facility] [address] [place] [address] Nahomy Davies MD Prior Auth Prescription (Davis-3) 07/10/2024 Refill [facility] [address] [place], [place] [phone] Irene Mei MD Type 2 diabetes mellitus without complication, without long-term current use of insulin ([facility]) 07/10/2024 Refill [facility] [address] [place] [address] Suyapa Doyle MD Acquired hypothyroidism; Osteopenia determined by x-ray; Sleep disturbance; Iron deficiency anemia, unspecified iron deficiency anemia type 07/10/2024 Refill [facility] [address] [place] [address] Nahomy Davies MD Iron deficiency anemia, unspecified iron deficiency anemia type 07/06/2024 10:30 AM EDT Clinical Support [facility] [address] [place] [phone] Kiarra Iniguez RN Type 2 diabetes mellitus with other specified complication, with long-term current use of insulin ([facility]) 07/06/2024 Travel 07/03/2024 Refill [facility] [address] [place] [address] Nahomy Davies MD 06/25/2024 Telephone [facility] [address] [place] [phone] Nahomy Davies MD Durable Medical Equipment 06/21/2024 Telephone [facility] [address] [place] [phone] Nahomy Davies MD No Show 06/20/2024 Telephone [facility] [address] [place] [phone] Nahomy Davies MD May recall 06/13/2024 Refill [facility] [address] [place] [phone] Nahomy Davies MD Type 2 diabetes mellitus with other specified complication, with long-term current use of insulin ([facility]) 06/13/2024 Refill [facility] [address] [place] [address] Nahomy Davies MD 06/06/2024 11:00 AM EST Office Visit [facility] [address] [place] [phone] Jp Snow MD Scalp mass (Primary Dx); Right knee injury, initial encounter 05/29/2024 Refill [facility] [address] [place] [address] Suyapa Doyle MD Iron deficiency anemia, unspecified iron deficiency anemia type; Mixed hyperlipidemia 05/29/2024 Refill [facility] [address] [place] [address] Nahomy Davies MD Mixed hyperlipidemia 05/16/2024 Refill [facility] [address] [place] [address] Suyapa Doyle MD Type 2 diabetes mellitus without complication, unspecified whether ocean transportation intermediary insulin use ([facility]); Type 2 diabetes mellitus without complication, without long-term current use of insulin ([facility]) 05/16/2024 Refill [facility] [address] [place] [address] Nahomy Davies MD 05/15/2024 10:15 AM EST Office Visit [facility] [address] [place], [place] [phone] Era Belle CNM Visit for pelvic exam (Primary Dx); Rash 05/15/2024 Travel 05/02/2024 Telephone [facility] [address] [place], [place] [phone] Kyara Jansen, tilt tray driver Question 05/01/2024 Orders Only [facility] [address] [place], [place] [phone] Radha Hylton ANP Atherosclerosis of coronary artery of [place] heart without angina pectoris, unspecified vessel or lesion type (Primary Dx); High triglycerides from Last 3 Months Immunizations Name Administration [...] 06/26/2020,05/29/19 21 Pfizer Covid-19 Vaccine 12+ 01/24/2024, 4 Pneumococcal Conjugate PCV 13 02/03/2015 Pneumococcal Conjugate [...] 05/15/2024 10:17 AM EST Plan of Treatment Upcoming Encounters Date Type Department Care Team (Late st Contact Info) Description 08/06/2024 11:30 AM EDT Clinical Support [address] [address] 08/28/2024 1:15 PM EDT Office Visit [address] [address] Nahomy Davies MD [address] [place] [phone] 09/26/2024 2:15 PM EDT Office Visit [address] [address] Nahomy Davies MD [address] [place] [phone] Health Maintenance Due Date Last Done Comments [...] Procedure Name Priority Date/Time Associated Diagnosis Comments CT HEAD WO CONTRAST Routine 07/25/2024 3:47 PM EDT XR CHEST 2 VIEWS Routine 07/25/2024 2:50 PM EDT XR ELBOW 1-2 VIEWS RIGHT Routine 05/23/2024 [...] Recently Relevant to Health Maintenance Results * CT Head w/o Contrast (07/25/2024 3:47 PM EDT) Anatomical Region Laterality Modality Head, Neck Computed Tomogra phy 07/25/2024 3:47 PM EDT Narrative 07/25/2024 4:34 PM EDT ? [facility] ?[address] ?[place] [address] ? CT Scan Report ? Signed ? Patient: Sampson Louie,Arlette ?MR#: MM ?? [id number] ? : 1945 ?Acct:[id number] ? Age/Sex: 79 / F ?ADM Date: 07/25/24 ? Loc: HO.ED ? Attending Dr: ? Ordering Physician: Heydi Faustin NP ?? Date of Service: 07/25/24 ?? Procedure(s): CT head/brain wo IV con ?? Accession Number(s): [id number] ? cc: Nahomy Davies MD; Heydi Faustin NP ? Report Number: ?? [id number]: Total DLP = ??748.00 mGy-cm ?? EXAMINATION: ?? CT HEAD WITHOUT CONTRAST ? CLINICAL INFORMATION: ?? Headache, dizziness ? COMPARISON: ?? 09/02/2023. ? TECHNIQUE: ?? Contiguous axial imaging was performed from the skull base to vertex ?? without intravenous administration of contrast. ? This CT examination was performed using dose optimization techniques as ?? appropriate, variously including the following: ?? *Automated exposure control ?? *Adjustment of mA and/or kV according to patient size (this includes ?? techniques or standardized protocols for targeted exams where dose is ?? matched to indication/reason for exam; i.e. extremities or head) ?? *Use of iterative reconstruction technique ? FINDINGS: ?? There is no evidence of intracranial hemorrhage or extra-axial fluid ?? collection. ?? There is no mass effect, or edema. No CT evidence of acute territorial ?? infarct. ?? Ventricles, sulci, and cisterns are normal in size and configuration ?? for patient age. No hydrocephalus. No midline shift. ?? Negative hyperdense MCA sign. Negative insular ribbon sign. ? Patchy periventricular and deep white matter hypoattenuation is ?? consistent with mild to moderate small vessel ischemic changes. ?? Normal pituitary. ?? Mild atheromatous calcification of the bilateral carotid siphons and V4 ?? segments vertebral arteries bilaterally. ? Globes and orbital contents image normally. There are bilateral lens ?? implants. ?? No extracranial soft tissue abnormalities. ? The paranasal sinuses, mastoid air cells, and tympanic cavities are ?? normally aerated. ?? No suspicious bony abnormalities. There are no acute fractures evident. ? CT/CT head/brain wo IV con ?? IMPRESSION: ?? 1. No acute intracranial abnormalities. ?? 2. Stable chronic changes. ? Electronically signed by: ??Jony Jama MD ??07/25/2024 04:31 PM EDT RP ? Dictated By: ?Jony Jama MD ? Signed By: ?<Electronically signed by Jony Jama MD in OV> ?07/25/24 1631 ? DD/ 1547 ? TD/TT: 07/25/24 1623 ? Vice President Of Software Engineering: ? Procedure Note Donabbyter, Image - 07/25/[address] [address] [address] Scan Report Signed Patient: Gifty DiasR#: [id number] : 7Acct:[id number] Age/Sex: 79 / FADM Date: 07/25/24 Loc: HO.ED Attending Dr: Ordering Physician: Heydi Faustin NP Date of Service: 07/25/24 Procedure(s): CT head/brain wo IV con Accession Number(s): [id number] cc: Nahomy Davies MD; Heydi Faustin NP Report Number: [id number]: Total DLP = 748.00 mGy-cm EXAMINATION: CT HEAD WITHOUT CONTRAST CLINICAL INFORMATION: Headache, dizziness COMPARISON: 09/02/2023. TECHNIQUE: Contiguous axial imaging was performed from the skull base to vertex without intravenous administration of contrast. This CT examination was performed using dose optimization techniques as appropriate, variously including the following: *Automated exposure control *Adjustment of mA and/or kV according to patient size (this includes techniques or standardized protocols for targeted exams where dose is matched to indication/reason for exam; i.e. extremities or head) *Use of iterative reconstruction technique FINDINGS: There is no evidence of intracranial hemorrhage or extra-axial fluid collection. There is no mass effect, or edema. No CT evidence of acute territorial infarct. Ventricles, sulci, and cisterns are normal in size and configuration for patient age. No hydrocephalus. No midline shift. Negative hyperdense MCA sign. Negative insular ribbon sign. Patchy periventricular and deep white matter hypoattenuation is consistent with mild to moderate small vessel ischemic changes. Normal pituitary. Mild atheromatous calcification of the bilateral carotid siphons and V4 segments vertebral arteries bilaterally. Globes and orbital contents image normally. There are bilateral lens implants. No extracranial soft tissue abnormalities. The paranasal sinuses, mastoid air cells, and tympanic cavities are normally aerated. No suspicious bony abnormalities. There are no acute fractures evident. CT/CT head/brain wo IV con IMPRESSION: 1. No acute intracranial abnormalities. 2. Stable chronic changes. Electronically signed by: Jony Jama MD 07/25/2024 04:31 PM EDT RP Dictated By: Jony Jama MD Signed By: <Electronically signed by Jony Jama MD in OV> 07/25/24 1631 DD/ 1547 TD/TT: 07/25/24 1623 Vice President Of Software Engineering: [facility] External Provider IMG CT PROCEDURES Final Result * XR Chest 2 Views (07/25/2024 2:50 PM EDT) Anatomical Region Laterality Modality Chest Radiographic Sylvia ging 07/25/2024 2:50 PM EDT Narrative 07/25/2024 3:05 PM EDT ? [facility] ?[address] ?[place] [address] ?XRay Report ? Signed ? Patient: Sampson Louie,Arlette ?MR#: MM ?? [id number] ? : 1945 ?Acct:[id number] ? Age/Sex: 79 / F ?ADM Date: /16/25 ? Loc: HO.ED ? Attending Dr: ? Ordering Physician: Heydi Faustin PLAN CHECKER ?? Date of Service: 04/ ?? Procedure(s): XR chest 2V ?? Accession Number(s): [id number] ? cc: Nahomy Davies MD; Heydi Faustin NP ? EXAMINATION: ?? XR CHEST ? CLINICAL INFORMATION: ?? chest pain ? COMPARISON: ?? 09/02/2023. ? TECHNIQUE: ?? 2 views of the chest were obtained. ? FINDINGS: ?? The cardiac, hilar, and mediastinal contours are normal. ? The lungs are clear bilaterally. There is no pneumothorax or pleural ?? effusion. ? There is no focal osseous or soft tissue abnormality. There are ?? degenerative changes in the spine. ? XR/XR chest 2V ?? IMPRESSION: ?? No active pulmonary disease. ? Electronically signed by: ??Jony Jama MD ??07/25/2024 03:02 PM EDT RP ? Dictated By: ?Jony Jama MD ? Signed By: ?<Electronically signed by Jony Jama MD in OV> ?07/25/24 1502 ? DD/ 1450 ? TD/TT: 07/25/24 1456 ? Vice President Of Software Engineering: ? Procedure Note Ulysses, Image - 07/25/2024 [place] [address] XRay Report Signed Patient: Gifty DiasR#: [id number] : 1945cct:[id number] Age/Sex: 79 / FADM Date: 07/25/24 Loc: HO.ED Attending Dr: Ordering Physician: Heydi Faustin NP Date of Service: 07/25/24 Procedure(s): XR chest 2V Accession Number(s): [id number] cc: Nahomy Davies MD; Heydi Faustin NP EXAMINATION: XR CHEST CLINICAL INFORMATION: chest pain COMPARISON: 09/02/2023. TECHNIQUE: 2 views of the chest were obtained. FINDINGS: The cardiac, hilar, and mediastinal contours are normal. The lungs are clear bilaterally. There is no pneumothorax or pleural effusion. There is no focal osseous or soft tissue abnormality. There are degenerative changes in the spine. XR/XR chest 2V IMPRESSION: No active pulmonary disease. Electronically signed by: Jony Jama MD 07/25/2024 03:02 PM EDT Dictated By: Jony Jama MD Signed By: <Electronically signed by Jony Jama MD in OV> 07/25/24 1502 DD/ 1450 TD/TT: 07/25/24 1456 Vice President Of Software Engineering: [facility] External Provider IMG XR PROCEDURES Final Result * XR Elbow 1-2 Views Right (05/23/2024 6:45 PM EST) Anatomical Region Laterality Modality Upper Extremities, Elbow Right Radiogr aphic Imaging 05/23/2024 6:45 PM EST Narrative 05/23/2024 6:47 PM EST ? [facility] ?[address] ?[place], [place] [address] ?XRay Report ? Signed ? Patient: Arlette Dias ?MR#: MM ?? [id number] ? : 1945 ?Acct:[id number] ? Age/Sex: 79 / F ?ADM Date: 05/23/24 ? Loc: HO.ED ? Attending Dr: ? Ordering Physician: Jeannie Moulton ?? Date of Service: 05/23/24 ?? Procedure(s): XR elbow RT 2V ?? Accession Number(s): [id number] ? cc: Nahomy Davies MD; Jeannie Moulton [...] in OV> ? 05/23/24 1846 ? DD/ 1845 ? TD/TT: 05/23/24 1845 ? Vice President Of Software Engineering: ? Procedure Note Roger Arora - 05/23/20[address] [place] [address] XRay Report Signed Patient: Gifty DiasR#: [id number] : 7Acct:[id number] Age/Sex: 79 / FADM Date: 05/23/24 Loc: HO.ED Attending Dr: Ordering Physician: Jeannie Moulton Date of Service: 05/23/24 Procedure(s): XR elbow RT 2V Accession Number(s): [id number] cc: Nahomy Davies MD; Jeannie Moulton CLINICAL [...] in OV> 05/23/241845 DD/ 44 TD/TT: 05/23/241844 Vice President Of Software Engineering: [facility] External Provider IMG XR PROCEDURES Final Result * XR Knee 3 Views Right (05/23/2024 1:39 PM EST) Anatomical Region Laterality Modality Lower Extremities, Knee Right Radiogra [facility] 05/23/2024 1:39 PM EST Narrative 05/23/2024 2:12 PM EST ? [facility] ?[address] ?[place] [address] ?XRay Report ? Signed ? Patient: Sampson Louie,Arlette ?MR#: MM ?? [id number] ? : 1945 ?Acct:[id number] ? Age/Sex: 79 / F ?ADM Date: 02/12/25 ? Loc: HO.ED ? Attending Dr: ? Ordering Physician: Jeannie Moulton ?? Date of Service: 05/23/24 ?? Procedure(s): XR knee RT 3V ?? Accession Number(s): [id number] ? cc: Nahomy Davies MD; Jeannie Moulton [...] DD/ 1339 ? TD/TT: 05/23/24 1404 ? Vice President Of Software Engineering: ? Procedure Note Ulysses, Roger - 05/23/2024 [place] [address] XRay Report Signed Patient: Gifty DiasR#: [id number] : 1945cct:[id number] Age/Sex: 79 / FADM Date: 05/23/24 Loc: HO.ED Attending Dr: Ordering Physician: Jeannie Moulton Date of Service: 05/23/24 Procedure(s): XR knee RT 3V Accession Number(s): [id number] cc: Nahomy Davies MD; Jeannie Moulton EXAMINATION: [...] fracture or dislocation. Electronically signed by: Xander Hutr MD 05/23/2024 02:10 PM EST RP Dictated By: Xander Castellanos MD Signed By: <Electronically signed by Xander Villegas MDin OV> 05/23/24 1410 DD/ 1339 TD/TT: 05/23/24 1404 Vice President Of Software Engineering: [facility] External Provider IMG XR PROCEDURES Final Result * XR Forearm 2 Views Right (05/23/2024 1:39 PM EST) Anatomical Region Laterality Modality Upper Extremities, Forearm Right Radio graphic Imaging 05/23/2024 1:39 PM EST Narrative 05/23/2024 2:11 PM EST ? [facility] ?[address] ?[place] [address] ?XRay Report ? Signed ? Patient: Arlette Dias ?MR#: MM ?? [id number] ? : 1945 ?Acct:[id number] ? Age/Sex: 79 / F ?ADM Date: 05/23/24 ? Loc: HO.ED ? Attending Dr: ? Ordering Physician: Jeannie Moulton ?? Date of Service: 05/23/24 ?? Procedure(s): XR forearm RT 2V ?? Accession Number(s): [id number] ? cc: Nahomy Davies MD; Jeannie Moulton [...] DD/ 1339 ? TD/TT: 05/23/24 1404 ? Vice President Of Software Engineering: ? Procedure Note Donnimisha, Roger - 05/23/[address] [address] XRay Report Signed Patient: Gifty DiasR#: [id number] : 1945cct:[id number] Age/Sex: 79 / FADM Date: 05/23/24 Loc: .ED Attending Dr: Ordering Physician: Jeannie Moulton Date of Service: 05/23/24 Procedure(s): XR forearm RT 2V Accession Number(s): [id number] cc: Nahomy Davies MD; Jeannie Moulton EXAMINATION: [...] Xander Hurt MD 05/23/2024 02:08 PM EST Dictated By: Xander Castellanos MD Signed By: <Electronically signed by Xander Villegas MDin OV> 05/23/24 1408 DD/ 1339 TD/TT: 05/23/24 1404 Vice President Of Software Engineering: [facility] External Provider IMG XR PROCEDURES Final Result * XR Elbow 3+ Views Right (05/23/2024 1:39 PM EST) Anatomical Region Laterality Modality Upper Extremities, Elbow Right Radiogr aphic Imaging 05/23/2024 1:39 PM EST Narrative 05/23/2024 2:13 PM EST ? [facility] ?[address] ?[place] [address] ?XRay Report ? Signed ? Patient: Sampson Louie,Arlette ?MR#: MM ?? [id number] ? : 1945 ?Acct:[id number] ? Age/Sex: 79 / F ?ADM Date: 05/23/24 ? Loc: HO.ED ? Attending Dr: ? Ordering Physician: Jeannie Moulton ?? Date of Service: 05/23/24 ?? Procedure(s): XR elbow RT min 3V ?? Accession Number(s): [id number] ? cc: Nahomy Davies MD; Jeannie Moulton [...] DD/ 1339 ? TD/TT: 05/23/24 1404 ? Vice President Of Software Engineering: ? Procedure Roger Levine - 05/23/[address] [address] XRay Report Signed Patient: Clarisa Dias#: [id number] : 7Acct:[id number] Age/Sex: 79 / FADM Date: 05/23/24 Loc: .ED Attending Dr: Ordering Physician: Jeannie Moulton Date of Service: 05/23/24 Procedure(s): XR elbow RT min 3V Accession Number(s): [id number] cc: Nahomy Davies MD; Jeannie Moulton EXAMINATION: [...] by: Grzegorz Borden MD 05/23/2024 02:10 PM [facility] Dictated By: Grzegorz Borden MD Signed By: <Electronically signed by Grzegorz Borden MD in OV> 05/23/24 1410 DD/ 1339 TD/TT: 05/23/24 1404 Vice President Of Software Engineering: [facility] External Provider IMG XR PROCEDURES Final Result * (ABNORMAL) Albumin, Random Urine W/Creatinine (11/22/2023 12:40 PM EDT) Creatinine, Urine 66.52 mg/dL [facility] Microalbumin Urine 23.0 mg/L [facility] Microalbum Creatinine Ratio Ur 34.5(H) <30 ug/mg cr [facility] Comment:Albumin/Creatinine R atio Reference Ranges: Normal: < 30 ug/mg creatinine Microalbuminuria: 30 - 300 ug/mg creatinineClinical Albuminuria: > 300 ug/mg creatinine 11/22/2023 12:4 0 PM EDT 11/22/2023 5:12 PM EDT us Nahomy Kessler MD LAB URINE ORDERAB LES Final Result [facility] [address] [place] [phone] * (ABNORMAL) POCT HGB A1C (11/22/2023 10:45 AM EDT) Hemoglobin A1C 8.0(A) 4.0 - 6.0 % QC Media Lot # [id number] Lot# Expiration Date ,360,804 Blood 11/22/2023 10:4 5 AM EDT Nahomy Kessler MD POINT OF CARE ADWOA T ENTER/EDIT ORDERABLES Final Result * (ABNORMAL) Lipid Panel, Standard (11/14/2023 10:00 AM EDT) Triglycerides 293(H) <150 mg/dL [facility] Comment:Desirable Triglyceri de: less than 150 mg/dLBorderline High Triglyceride 150-199 mg/dLHigh Triglyceride: 200-499 mg/dLVery High Triglyceride: greater than or equal to 5OO mg/dL Cholesterol 135 <200 mg/dL [facility] Comment:Desirable Cholestero l: less than 200 mg/dLBorderline High Cholesterol: 200-239 mg/dLHigh Cholesterol: greater than 239 mg/dL LDL Cholesterol Calculated 40 <100 mg/dL [facility] Comment:Desirable LDL: less than 100 mg/dLNear Optimal/Above Optimal LDL: 110- 129 mg/dLBorderline High LDL: 130-159 mg/dLHigh LDL: 160-189 mg/dLVery High LDL: greater than or equal to 190 mg/dL HDL Cholesterol 37(L) >40 mg/dL [facility] Comment:Desirable HDL: great er than 40 mg/dL Note: This HDL assay may give artificially low results in patients with liver disease. Blood Venous blood specimen / Unknown 11/14/2023 10:00 AM EDT 11/14/2023 11:16 AM EDT us Nahomy Kessler MD LAB BLOOD ORDERAB LES Final Result [facility] [address] [place] [phone] * Hepatitis C Antibody with Reflex to HCV, RNA, Quantitative, Real-Time PCR (03/22/2023 8:23 AM EST) Hepatitis C Antibody Nonreactive Nonreactive [facility] Comment:Antibodies to HCV no t detected; does not exclude early acuteHCV infection. Blood Venous blood specimen / Unknown 03/22/2023 8:23 AM EST 03/22/2023 11:12 AM EST us Nahomy Kessler MD LAB BLOOD ORDERAB LES Final Result Performing Organization Address City/[facility]/ZIP Co de Phone Number [facility] [address] [place] [phone] from Last 3 Months or Most Recently Relevant to Health Maintenance Insurance [facility] Care Teams Hides Soaker Relationship Specialty Start Date End Date Nahomy Davies MD [address] [place] [address] PCP - General Internal Medicine 01/13/23
--- OUTSIDE RECORDS SUMMARY | 2024-07-25 17:21 | XMS_ITS | Encounter Summary ---
Author Organization [employer] Address 75 [facility] 7t [place] [address] Care Team Providers Care Cna Hha Name Role Phone Nancy Larose STRATEGY EXECUTION CONSULTANT Primary Care Provider +1- [phone] Nahomy Davies MD Primary Care Pro vider Encounter Details Date Type Department Care Team (Late st Contact Info) Description 10/19/2022 Orders Only [facility] [address] [place] [address] Kary Lux LPN Social History Tobacco Use [...] Encounters Date Type Department Care Team (Late Contact Info) Description 08/06/2024 11:30 AM EDT Clinical Support [facility] [address] [place] [address] 08/28/2024 1:15 PM EDT Office Visit [address] [address] Nahomy Davies MD [address] [place] [address] 09/26/2024 2:15 PM EDT Office Visit [address] [address] Nahomy Davies MD [address] [place] [address] documented as of this encounter Visit Diagnoses Not on filedocumented in this encounter Additional Health Concerns Assessment Noted Time PHQ-9 Depression Total Score: 0 04/23/19 9:18 AM EST documented as of this encounter Care Teams Cna Hha Relationship Specialty Start Date End Date Nancy Larose FNP PCP - General Family Medicine 12/08/21 01/12/23 Nahomy Davies MD [address] [place] [phone] PCP - General Internal Medicine 01/13/23 documented as of this encounter
--- OUTSIDE RECORDS SUMMARY | 2024-07-25 17:21 | XMS_ITS | Encounter Summary ---
Author Organization [employer] Address 75 [facility] 7t [place] [address] Care Team Providers Care Contract Officer Name Role Phone Nahomy Davies MD Primary Care Pro vider Reason for Visit * Reason Comments Med Refill Encounter Details Date Type Department Care Team ([facility] st Contact Info) Description 06/29/2023 Refill [facility] 230 [place], [place] [phone] Nahomy Davies MD 230 [place] [address] Social History Tobacco Use Types Packs/Day Years [...] Description 08/06/2024 11:30 AM EDT Clinical Support [address] [address] 08/28/2024 1:15 PM EDT Office Visit [address] [address] Nahomy Davies MD [address] [place] [address] 09/26/2024 2:15 PM EDT Office Visit [address] [address] Nahomy Davies MD [address] [place] [address] documented as of this encounter Visit Diagnoses Not on filedocumented in this encounter Additional Health Concerns Assessment Noted Time PHQ-9 Depression Total Score: 0 04/23/19 9:18 AM EST documented as of this encounter Care Teams Contract Officer Relationship Specialty Start Date End Date Nahomy Davies MD [address] [place] [address] [phone] PCP - General Internal Medicine 01/13/23 documented as of this encounter
--- OUTSIDE RECORDS SUMMARY | 2024-07-25 17:21 | XMS_ITS | Encounter Summary ---
Author Organization [employer] Address 75 [facility] 7t [place] [address] Care Team Providers Care Oceanographer Physical Name Role Phone Nahomy Davies MD Primary Care Pro vider Reason for Visit * Reason Comments Med Refill Encounter Details Date Type Department Care Team ([facility] st Contact Info) Description 07/10/2024 Refill [facility] 230 [place] [address] Nahomy Davies MD 230 [place] [address] Iron deficiency anemia, unspecified iron deficiency anemia [...] Description 08/06/2024 11:30 AM EDT Clinical Support [address] [address] 08/28/2024 1:15 PM EDT Office Visit [address] [address] Nahomy Davies MD [address] [place] [address] 09/26/2024 2:15 PM EDT Office Visit [address] [address] Nahomy Davies MD [address] [place] [address] documented as of this encounter Visit Diagnoses Diagnosis Iron deficiency anemia, unspecified iron deficiency anemia type documented in this encounter Additional Health Concerns Assessment Noted Time PHQ-9 Depression Total Score: 0 04/23/19 9:18 AM EST documented as of this encounter Care Teams Oceanographer Physical Relationship Specialty Start Date End Date Nahomy Davies MD [address] [place] [address] PCP - General Internal Medicine 01/13/23 documented as of this encounter
--- OUTSIDE RECORDS SUMMARY | 2024-07-25 17:21 | XMS_ITS | Encounter Summary ---
Author Organization [employer] Address 75 [facility] 7t [place] [address] Care Team Providers Care Instructor Kindergarten Name Role Phone Nahomy Davies MD Primary Care Pro vider Reason for Visit * Reason Comments Med Refill Encounter Details Date Type Department Care Team ([facility] st Contact Info) Description 02/07/[address] [facility]INE 230 [place], [place] [phone] Nancy Larose FNP [address] [place] [address] Dept [place] [address] Social History Tobacco Use Types Packs/Day Years [...] Description 08/06/2024 11:30 AM EDT Clinical Support [address] [address] 08/28/2024 1:15 PM EDT Office Visit [address] [address] Nahomy Davies MD [address] [place] [address] 09/26/2024 2:15 PM EDT Office Visit [address] [address] Nahomy Davies MD [address] [place] [address] documented as of this encounter Visit Diagnoses Not on filedocumented in this encounter Additional Health Concerns Assessment Noted Time PHQ-9 Depression Total Score: 0 04/23/19 9:18 AM EST documented as of this encounter Care Teams Instructor Kindergarten Relationship Specialty Start Date End Date Nahomy Davies MD [address] [place] [phone] PCP - General Internal Medicine 01/13/23 documented as of this encounter
--- OUTSIDE RECORDS SUMMARY | 2024-07-25 17:21 | XMS_ITS | Encounter Summary ---
Author Organization [employer] Address 75 [facility] 7t [place] [address] Care Team Providers Care Financial Planning Advisor Name Role Phone Nahomy Davies MD Primary Care Pro vider Reason for Visit * Reason Comments Med Refill Encounter Details Date Type Department Care Team ([facility] st Contact Info) Description 02/28/[address] [facility] MED[facility]INE 230 [place], [place] [phone] Irene Mei MD 230 [place], [place] [phone] Type 2 diabetes mellitus with other specified complication, with long-term current use of insulin ([facility]); Shortness of breath; Chronic neck pain [...] Description 08/06/2024 11:30 AM EDT Clinical Support [address] [address] 08/28/2024 1:15 PM EDT Office Visit [address] [address] Nahomy Davies MD [address] [place] [address] 09/26/2024 2:15 PM EDT Office Visit [address] [address] Nahomy Davies MD [address] [place] [address] documented as of this encounter Visit Diagnoses Diagnosis Type 2 diabetes mellitus with other specified complication, with long-term current use of insulin ([facility]) Shortness of breath Chronic neck pain Cervicalgia documented in this encounter Additional Health Concerns Assessment Noted Time PHQ-9 Depression Total Score: 0 04/23/19 23 9:18 AM EST documented as of this encounter Care Teams Financial Planning Advisor Relationship Specialty Start Date End Date Nahomy Davies MD [address] [place] [phone] PCP - General Internal Medicine 01/13/23 documented as of this encounter
--- OUTSIDE RECORDS SUMMARY | 2024-07-25 17:21 | XMS_ITS | Encounter Summary ---
Author Organization [employer] Address 75 [facility] 7t [place] [address] Care Team Providers Care Inspector Floor Name Role Phone Nahomy Davies MD Primary Care Pro vider Reason for Visit * Reason Comments Med Refill Encounter Details Date Type Department Care Team ([facility] st Contact Info) Description 02/02/[address] [facility] MEDICINE 230 [place], [place] [phone] Nahomy Davies MD 230 [place] [address] Iron deficiency anemia, unspecified iron deficiency anemia [...] Description 08/06/2024 11:30 AM EDT Clinical Support [address] [address] 08/28/2024 1:15 PM EDT Office Visit [address] [address] Nahomy Davies MD [address] [place] [address] 09/26/2024 2:15 PM EDT Office Visit [address] [address] Nahomy Davies MD [address] [place] [address] documented as of this encounter Visit Diagnoses Diagnosis Iron deficiency anemia, unspecified iron deficiency anemia type Mixed hyperlipidemia documented in this encounter Additional Health Concerns Assessment Noted Time PHQ-9 Depression Total Score: 0 04/23/19 9:18 AM EST documented as of this encounter Care Teams Inspector Floor Relationship Specialty Start Date End Date Nahomy Davies MD [address] [place] [address] PCP - General Internal Medicine 01/13/23 documented as of this encounter
--- OUTSIDE RECORDS SUMMARY | 2024-07-25 17:21 | XMS_ITS | Encounter Summary ---
Author Organization [employer] Address 75 [facility] 7 [place] [address] Care Team Providers Care Sexer Name Role Phone Nahomy Davies MD Primary Care Pro vider Reason for Visit * Reason Comments Med Refill Encounter Details Date Type Department Care Team ([facility] st Contact Info) Description 03/21/2024 Refill [facility] & PEDS 505 [place], [place] [phone] Nahomy Davies MD 230 [place] [address] Type 2 diabetes mellitus without complication, without long-term current use of insulin ([facility]); Type 2 diabetes mellitus without complication, unspecified whether rat exterminator insulin use ([facility]); [...] Description 08/06/2024 11:30 AM EDT Clinical Support [address] [address] 08/28/2024 1:15 PM EDT Office Visit [facility] [address] [place] [address] Nahomy Davies MD [address] [place] [address] 09/26/2024 2:15 PM EDT Office Visit [facility] [address] [place] [address] Nahomy Davies MD [address] [place] [address] documented as of this encounter Visit Diagnoses Diagnosis Type 2 diabetes mellitus without complication, unspecified whether rat exterminator insulin use ([facility]) Iron deficiency anemia, unspecified iron deficiency anemia type Acquired hypothyroidism Unspecified hypothyroidism Sleep disturbance Unspecified sleep disturbance Osteopenia determined by x-ray documented in this encounter Additional Health Concerns Assessment Noted Time PHQ-9 Depression Total Score: 0 04/23/19 9:18 AM EST documented as of this encounter Care Teams Sexer Relationship Specialty Start Date End Date Nahomy Davies MD [address] [place] [phone] PCP - General Internal Medicine 01/13/23 documented as of this encounter
--- OUTSIDE RECORDS SUMMARY | 2024-07-25 17:21 | XMS_ITS | Encounter Summary ---
Author Organization [employer] Address [address] [facility] [address] 7t [place] [address] Care Team Providers Care Caption Writer Name Role Phone Nahomy Davies MD Primary Care Pro vider Reason for Visit * Reason Comments Med Refill Encounter Details Date Type Department Care Team ([facility] st Contact Info) Description 07/10/[address] [facility] PEDS [address] [place], [place] [phone] Suyapa Doyle MD 230 [place] [address] Acquired hypothyroidism; Osteopenia determined by x-ray; Sleep [...] Description 08/06/2024 11:30 AM EDT Clinical Support [address] [address] 08/28/2024 1:15 PM EDT Office Visit [address] [address] Nahomy Davies MD [address] [place] [address] 09/26/2024 2:15 PM EDT Office Visit [address] [address] Nahomy Davies MD [address] [place] [address] documented as of this encounter Visit Diagnoses Diagnosis Acquired hypothyroidism Unspecified hypothyroidism Osteopenia determined by x-ray Sleep disturbance Unspecified sleep disturbance Iron deficiency anemia, unspecified iron deficiency anemia type documented in this encounter Additional Health Concerns Assessment Noted Time PHQ-9 Depression Total Score: 0 04/23/19 23 9:18 AM EST documented as of this encounter Care Teams Caption Writer Relationship Specialty Start Date End Date Nahomy Davies MD [address] [place] [phone] PCP - General Internal Medicine 01/13/23 documented as of this encounter
--- OUTSIDE RECORDS SUMMARY | 2024-07-25 17:21 | XMS_ITS | Encounter Summary ---
Author Organization [employer] Address [address] [facility] [address] 7t [place] [address] Care Team Providers Care Bull Chain Operator Name Role Phone Nahomy Davies MD Primary Care Pro vider Reason for Visit * Reason Comments Med Refill Encounter Details Date Type Department Care Team ([facility] st Contact Info) Description 04/20/2024 Refill [facility]EDS [address] [place], [place] [phone] Suyapa Doyle MD 230 [place] [address] Iron deficiency anemia, unspecified iron deficiency anemia [...] Description 08/06/2024 11:30 AM EDT Clinical Support [address] [place] [address] [address] 08/28/2024 1:15 PM EDT Office Visit [address] [place] [address] [address] Nahomy Davies MD [address] [place] [address] 09/26/2024 2:15 PM EDT Office Visit [address] [place] [address] [address] Nahomy Davies MD [address] [place] [address] documented as of this encounter Visit Diagnoses Diagnosis Iron deficiency anemia, unspecified iron deficiency anemia type documented in this encounter Additional Health Concerns Assessment Noted Time PHQ-9 Depression Total Score: 0 04/23/19 9:18 AM EST documented as of this encounter Care Teams Bull Chain Operator Relationship Specialty Start Date End Date Nahomy Davies MD [address] [place] [address] PCP - General Internal Medicine 01/13/23 documented as of this encounter
--- OUTSIDE RECORDS SUMMARY | 2024-07-25 17:21 | XMS_ITS | Encounter Summary ---
Author Organization [employer] Address [address] [facility] [address] 7t [place] [address] Care Team Providers Care Horse Stud Manager Name Role Phone Nahomy Davies MD Primary Care Pro vider Reason for Visit * Reason Comments Med Refill Encounter Details Date Type Department Care Team ([facility] st Contact Info) Description 07/23/2023 Refill [facility] PEDS [address] [place], [place] [phone] Suyapa Doyle MD 230 [place] [address] Shortness of breath Social History Tobacco Use [...] 08/06/2024 11:30 AM EDT Clinical Support [address] [address] 08/28/2024 1:15 PM EDT Office Visit [address] [address] Nahomy Davies MD [address] [place] [address] 09/26/2024 2:15 PM EDT Office Visit [address] [address] Nahomy Davies MD [address] [place] [address] documented as of this encounter Visit Diagnoses Diagnosis Shortness of breath documented in this encounter Additional Health Concerns Assessment Noted Time PHQ-9 Depression Total Score: 0 04/23/19 9:18 AM EST documented as of this encounter Care Teams Horse Stud Manager Relationship Specialty Start Date End Date Nahomy Davies MD [address] [place] [address] PCP - General Internal Medicine 01/13/23 documented as of this encounter
--- OUTSIDE RECORDS SUMMARY | 2024-07-25 17:21 | XMS_ITS | Encounter Summary ---
Author Organization [employer] Address 75 [facility] 7t [place] [address] Care Team Providers Care Customer Complaint Clerk Name Role Phone Nahomy Davies MD Primary Care Pro vider Reason for Visit * Reason Comments Med Refill Encounter Details Date Type Department Care Team ([facility] st Contact Info) Description 06/06/2023 Refill [facility] 230 [place], [place] [phone] Nahomy Davies MD 230 [place] [address] Social History Tobacco Use Types Packs/Day Years [...] 08/06/2024 11:30 AM EDT Clinical Support [address] [address] 08/28/2024 1:15 PM EDT Office Visit [address] [address] Nahomy Davies MD [address] [place] [address] 09/26/2024 2:15 PM EDT Office Visit [address] [address] Nahomy Davies MD [address] [place] [address] documented as of this encounter Visit Diagnoses Not on filedocumented in this encounter Additional Health Concerns Assessment Noted Time PHQ-9 Depression Total Score: 0 04/23/19 9:18 AM EST documented as of this encounter Care Teams Customer Complaint Clerk Relationship Specialty Start Date End Date Nahomy Davies MD [address] [place] [address] [phone] PCP - General Internal Medicine 01/13/23 documented as of this encounter
--- OUTSIDE RECORDS SUMMARY | 2024-07-25 17:21 | XMS_ITS | Encounter Summary ---
Author Organization [employer] Address 75 [facility] 7t [place] [address] Care Team Providers Care Senior Electrical Controls Engineer Name Role Phone Nahomy Davies MD Primary Care Pro vider Reason for Visit * Reason Comments Med Refill Encounter Details Date Type Department Care Team ([facility] st Contact Info) Description 03/05/2024 Refill [facility]INE 230 [place], [place] [phone] Irene Mei MD 230 [place], [place] [phone] Type 2 diabetes mellitus with other specified complication, with long-term current use of insulin ([facility]); Shortness of breath; Chronic neck pain [...] Description 08/06/2024 11:30 AM EDT Clinical Support [address] [address] 08/28/2024 1:15 PM EDT Office Visit [address] [address] Nahomy Davies MD [address] [place] [address] 09/26/2024 2:15 PM EDT Office Visit [address] [address] Nahomy Davies MD [address] [place] [address] documented as of this encounter Visit Diagnoses Diagnosis Type 2 diabetes mellitus with other specified complication, with long-term current use of insulin ([facility]) Shortness of breath Chronic neck pain Cervicalgia documented in this encounter Additional Health Concerns Assessment Noted Time PHQ-9 Depression Total Score: 0 04/23/19 23 9:18 AM EST documented as of this encounter Care Teams Senior Electrical Controls Engineer Relationship Specialty Start Date End Date Nahomy Davies MD [address] [place] [phone] PCP - General Internal Medicine 01/13/23 documented as of this encounter
--- OUTSIDE RECORDS SUMMARY | 2024-07-25 17:21 | XMS_ITS | Encounter Summary ---
Author Organization [employer] Address 75 [facility] 7t [place] [address] Care Team Providers Care Outside Food Server Name Role Phone Nancy Larose CHARGE RN Primary Care Provider +1- [phone] Nahomy Davies MD Primary Care Pro vider Reason for Visit * Reason Comments Med Refill Encounter Details Date Type Department Care Team (Late st Contact Info) Description 11/10/2022 Refill [facility]INE 230 [place] [address] Nancy Larose FNP [address] [place] [address] Dept [place] [address] Type 2 diabetes mellitus without complication, without long-term current use of insulin ([facility]); Sleep disturbance; Constipation, unspecified constipation type; Essential [...] 08/06/2024 11:30 AM EDT Clinical Support [address] [address] 08/28/2024 1:15 PM EDT Office Visit [address] [address] Nahomy Davies MD [address] [place] [address] 09/26/2024 2:15 PM EDT Office Visit [address] [address] Nahomy Davies MD [address] [place] [address] documented as of this encounter Visit Diagnoses Diagnosis Type 2 diabetes mellitus without complication, without long-term current use of insulin ([facility]) Sleep disturbance Unspecified sleep disturbance Constipation, unspecified constipation type Essential hypertension Unspecified essential hypertension Gastroesophageal reflux disease without esophagitis Esophageal reflux Cobalamin deficiency Other B-complex deficiencies Osteopenia determined by x-ray documented in this encounter Additional Health Concerns Assessment Noted Time PHQ-9 Depression Total Score: 0 04/23/19 9:18 AM EST documented as of this encounter Care Teams Outside Food Server Relationship Specialty Start Date End Date Nancy Larose FNP PCP - General Family Medicine 12/08/21 01/12/23 Nahomy Davies MD [address] [place] [address] PCP - General Internal Medicine 01/13/23 documented as of this encounter
--- OUTSIDE RECORDS SUMMARY | 2024-07-25 17:21 | XMS_ITS | Encounter Summary ---
Author Organization [employer] Address 75 [facility] 7t [place] [address] Care Team Providers Care Battery Container Finishing Hand Name Role Phone Nahomy Davies MD Primary Care Pro vider Reason for Visit * Reason Comments Med Refill Encounter Details Date Type Department Care Team ([facility] st Contact Info) Description 06/23/2023 Refill [facility]INE 230 [place] [address] Nahomy Davies MD 230 [place] [address] Social History Tobacco Use Types Packs/Day Years [...] Description 08/06/2024 11:30 AM EDT Clinical Support [address] [address] 08/28/2024 1:15 PM EDT Office Visit [address] [address] Nahomy Davies MD [address] [place] [address] 09/26/2024 2:15 PM EDT Office Visit [address] [address] Nahomy Davies MD [address] [place] [address] documented as of this encounter Visit Diagnoses Not on filedocumented in this encounter Additional Health Concerns Assessment Noted Time PHQ-9 Depression Total Score: 0 04/23/19 9:18 AM EST documented as of this encounter Care Teams Battery Container Finishing Hand Relationship Specialty Start Date End Date Nahomy Davies MD [address] [place] [address] [phone] PCP - General Internal Medicine 01/13/23 documented as of this encounter
--- OUTSIDE RECORDS SUMMARY | 2024-07-25 17:21 | XMS_ITS | Encounter Summary ---
Author Organization [employer] Address 75 [facility] 7t [place] [address] Care Team Providers Care Retail Sales Professional Name Role Phone Nahomy Davies MD Primary Care Pro vider Reason for Visit * Reason Comments Med Refill Encounter Details Date Type Department Care Team ([facility] st Contact Info) Description 06/13/2023 Refill [facility] MEDICINE 230 [place] [address] Nahomy Davies MD 230 [place] [address] Social History Tobacco Use Types Packs/Day Years [...] 08/06/2024 11:30 AM EDT Clinical Support [address] [address] 08/28/2024 1:15 PM EDT Office Visit [address] [address] Nahomy Davies MD [address] [place] [address] 09/26/2024 2:15 PM EDT Office Visit [address] [address] Nahomy Davies MD [address] [place] [address] documented as of this encounter Visit Diagnoses Not on filedocumented in this encounter Additional Health Concerns Assessment Noted Time PHQ-9 Depression Total Score: 0 04/23/19 9:18 AM EST documented as of this encounter Care Teams Retail Sales Professional Relationship Specialty Start Date End Date Nahomy Davies MD [address] [place] [address] [phone] PCP - General Internal Medicine 01/13/23 documented as of this encounter
--- OUTSIDE RECORDS SUMMARY | 2024-07-25 17:21 | XMS_ITS | Encounter Summary ---
Author Organization [employer] Address 75 [facility] 7t [place] [address] Care Team Providers Care Rubber Compounder Name Role Phone Nahomy Davies MD Primary Care Pro vider Reason for Visit * Reason Comments Med Refill Encounter Details Date Type Department Care Team ([facility] st Contact Info) Description 02/27/2024 Refill [facility] MEDICINE [address] [place], [place] [phone] Irene Mei MD 230 [place], [place] [phone] Shortness of breath; Type 2 diabetes mellitus with other specified complication, with long-term current use of insulin ([facility]) Social History Tobacco Use [...] 08/06/2024 11:30 AM EDT Clinical Support [address] [address] 08/28/2024 1:15 PM EDT Office Visit [address] [address] Nahomy Davies MD [address] [place] [address] 09/26/2024 2:15 PM EDT Office Visit [address] [address] Nahomy Davies MD [address] [place] [address] documented as of this encounter Visit Diagnoses Diagnosis Shortness of breath Type 2 diabetes mellitus with other specified complication, with long-term current use of insulin ([facility]) documented in this encounter Additional Health Concerns Assessment Noted Time PHQ-9 Depression Total Score: 0 04/23/19 23 9:18 AM EST documented as of this encounter Care Teams Rubber Compounder Relationship Specialty Start Date End Date Nahomy Davies MD [address] [place] [phone] PCP - General Internal Medicine 01/13/23 documented as of this encounter
--- OUTSIDE RECORDS SUMMARY | 2024-07-25 17:21 | XMS_ITS | Encounter Summary ---
Author Organization [employer] Address 75 [facility] 7t [place] [address] Care Team Providers Care Product Mgmt Dev Manager Name Role Phone Nahomy Davies MD Primary Care Pro vider Reason for Visit * Reason Comments Med Refill Encounter Details Date Type Department Care Team ([facility] st Contact Info) Description 04/20/2024 Refill [facility] MED & PEDS [address] [place], [place] [phone] Nahomy Davies MD 230 [place] [address] Mixed hyperlipidemia Social History Tobacco Use Types [...] Description 08/06/2024 11:30 AM EDT Clinical Support [address] [address] 08/28/2024 1:15 PM EDT Office Visit [address] [address] Nahomy Davies MD [address] [place] [address] 09/26/2024 2:15 PM EDT Office Visit [address] [address] Nahomy Davies MD [address] [place] [address] documented as of this encounter Visit Diagnoses Diagnosis Mixed hyperlipidemia documented in this encounter Additional Health Concerns Assessment Noted Time PHQ-9 Depression Total Score: 0 04/23/19 9:18 AM EST documented as of this encounter Care Teams Product Mgmt Dev Manager Relationship Specialty Start Date End Date Nahomy Davies MD [address] [place] [address] PCP - General Internal Medicine 01/13/23 documented as of this encounter
--- OUTSIDE RECORDS SUMMARY | 2024-07-25 17:21 | XMS_ITS | Encounter Summary ---
Author Organization [employer] Address 75 [facility] 7t [place] [address] Care Team Providers Care Case Resolution Specialist Name Role Phone Nahomy Davies MD Primary Care Pro vider Reason for Visit * Reason Comments Med Refill Encounter Details Date Type Department Care Team ([facility] st Contact Info) Description 02/23/2024 Refill [facility] MEDICINE 230 [place] [address] Nahomy Davies MD 230 [place] [address] Essential hypertension; Type 2 diabetes mellitus without complication, without long-term current use of insulin ([facility]) Social History Tobacco Use Types Packs/Day [...] Description 08/06/2024 11:30 AM EDT Clinical Support [address] [address] 08/28/2024 1:15 PM EDT Office Visit [address] [address] Nahomy Davies MD [address] [place] [address] 09/26/2024 2:15 PM EDT Office Visit [address] [address] Nahomy Davies MD [address] [place] [address] documented as of this encounter Visit Diagnoses Diagnosis Essential hypertension Unspecified essential hypertension Type 2 diabetes mellitus without complication, without long-term current use of insulin ([facility]) documented in this encounter Additional Health Concerns Assessment Noted Time PHQ-9 Depression Total Score: 0 04/23/19 23 9:18 AM EST documented as of this encounter Care Teams Case Resolution Specialist Relationship Specialty Start Date End Date Nahomy Davies MD [address] [place] [phone] PCP - General Internal Medicine 01/13/23 documented as of this encounter
--- OUTSIDE RECORDS SUMMARY | 2024-07-25 17:21 | XMS_ITS | Encounter Summary ---
Author Organization [employer] Address 75 [facility] 7t [place] [address] Care Team Providers Care Managing Editor Name Role Phone Nahomy Davies MD Primary Care Pro vider Reason for Visit * Reason Comments Med Refill Encounter Details Date Type Department Care Team ([facility] st Contact Info) Description 03/07/2024 Refill [facility] 230 [place], [place] [phone] Irene Mei MD 230 [place], [place] [phone] Shortness of breath; Type 2 diabetes mellitus with other specified complication, with long-term current use of insulin ([facility]); Chronic neck pain Social History [...] Description 08/06/2024 11:30 AM EDT Clinical Support [address] [address] 08/28/2024 1:15 PM EDT Office Visit [address] [address] Nahomy Davies MD [address] [place] [address] 09/26/2024 2:15 PM EDT Office Visit [address] [address] Nahomy Davies MD [address] [place] [address] documented as of this encounter Visit Diagnoses Diagnosis Shortness of breath Type 2 diabetes mellitus with other specified complication, with long-term current use of insulin ([facility]) Chronic neck pain Cervicalgia documented in this encounter Additional Health Concerns Assessment Noted Time PHQ-9 Depression Total Score: 0 04/23/19 23 9:18 AM EST documented as of this encounter Care Teams Managing Editor Relationship Specialty Start Date End Date Nahomy Davies MD [address] [place] [phone] PCP - General Internal Medicine 01/13/23 documented as of this encounter
--- OUTSIDE RECORDS SUMMARY | 2024-07-25 17:21 | XMS_ITS | Encounter Summary ---
Author Organization [employer] Address 75 [facility] 7t [place] [address] Care Team Providers Care Nfl Player Name Role Phone Nahomy Davies MD Primary Care Pro vider Reason for Visit * Reason Onset Date Comments Medication Question 03/25/2023 Encounter Details Date Type Department Care Team ([facility] st Contact Info) Description 03/25/2023 Telephone [facility] MEDICINE 230 [place] [address] Nahomy Davies MD 230 [place] [address] Medication Question Social History Tobacco Use Types [...] for FreeStyle lancets with clarifications on directions. [phone] ext [phone] documented in this encounter Plan of Treatment Upcoming Encounters Date Type Department Care Team (Late st Contact Info) Description 08/06/2024 11:30 AM EDT Clinical Support [address] [address] 08/28/2024 1:15 PM EDT Office Visit [facility] MEDICINE [address] [place] [address] Nahomy Davies MD [address] [place] [address] 09/26/2024 2:15 PM EDT Office Visit [facility] MEDICINE [address] [place] [address] Nahomy Davies MD [address] [place] [address] documented as of this encounter Visit Diagnoses Not on filedocumented in this encounter Additional Health Concerns Assessment Noted Time PHQ-9 Depression Total Score: 0 04/23/19 9:18 AM EST documented as of this encounter Care Teams Nfl Player Relationship Specialty Start Date End Date Nahomy Davies MD [address] [place] [phone] PCP - General Internal Medicine 01/13/23 documented as of this encounter
--- OUTSIDE RECORDS SUMMARY | 2024-07-25 17:21 | XMS_ITS | Encounter Summary ---
Author Organization [employer] Address 75 [facility] 7t [place] [address] Care Team Providers Care Back End Web Developer Name Role Phone Nahomy Davies MD Primary Care Pro vider Reason for Visit * Reason Comments Med Refill Encounter Details Date Type Department Care Team ([facility] st Contact Info) Description 07/23/2023 Refill [facility] MED[facility]INE 230 [place] [address] Nahomy Davies MD 230 [place] [address] Iron deficiency anemia, unspecified iron deficiency anemia type; Type 2 diabetes mellitus without complication, without long-term current use of insulin ([facility]) Social History Tobacco Use Types Packs/Day Years [...] Description 08/06/2024 11:30 AM EDT Clinical Support [address] [address] 08/28/2024 1:15 PM EDT Office Visit [address] [address] Nahomy Davies MD [address] [place] [address] 09/26/2024 2:15 PM EDT Office Visit [address] [address] Nahomy Davies MD [address] [place] [address] documented as of this encounter Visit Diagnoses Diagnosis Iron deficiency anemia, unspecified iron deficiency anemia type Type 2 diabetes mellitus without complication, without long-term current use of insulin ([facility]) documented in this encounter Additional Health Concerns Assessment Noted Time PHQ-9 Depression Total Score: 0 04/23/19 9:18 AM EST documented as of this encounter Care Teams Back End Web Developer Relationship Specialty Start Date End Date Nahomy Davies MD [address] [place] [phone] PCP - General Internal Medicine 01/13/23 documented as of this encounter
--- OUTSIDE RECORDS SUMMARY | 2024-07-25 17:21 | XMS_ITS | Encounter Summary ---
Author Organization [employer] Address 75 [facility] 7t [place] [address] Care Team Providers Care Strapping Machine Operator Name Role Phone Nahomy Davies MD Primary Care Pro vider Reason for Visit * Reason Comments Med Refill Encounter Details Date Type Department Care Team ([facility] st Contact Info) Description 06/20/2023 Refill [facility] MEDICINE 230 [place] [address] Nahomy Davies MD 230 [place] [address] Social History Tobacco Use Types Packs/Day Years [...] 08/06/2024 11:30 AM EDT Clinical Support [address] [address] 08/28/2024 1:15 PM EDT Office Visit [address] [address] Nahomy Davies MD [address] [place] [address] 09/26/2024 2:15 PM EDT Office Visit [address] [address] Nahomy Davies MD [address] [place] [address] documented as of this encounter Visit Diagnoses Not on filedocumented in this encounter Additional Health Concerns Assessment Noted Time PHQ-9 Depression Total Score: 0 04/23/19 9:18 AM EST documented as of this encounter Care Teams Strapping Machine Operator Relationship Specialty Start Date End Date Nahomy Davies MD [address] [place] [address] [phone] PCP - General Internal Medicine 01/13/23 documented as of this encounter
--- OUTSIDE RECORDS SUMMARY | 2024-07-25 17:21 | XMS_ITS | Encounter Summary ---
Author Organization [employer] Address 75 [facility] 7t [place] [address] Care Team Providers Care Director Of District Office Name Role Phone Nahomy Davies MD Primary Care Pro vider Reason for Visit * Reason Comments Med Refill Encounter Details Date Type Department Care Team ([facility] st Contact Info) Description 05/16/2024 Refill [facility] MED & PEDS 505 [place], [place] [phone] Nahomy Davies MD 230 [place], [place] [phone] Social History Tobacco Use Types Packs/Day Years [...] Description 08/06/2024 11:30 AM EDT Clinical Support [address] [address] 08/28/2024 1:15 PM EDT Office Visit [address] [address] Nahomy Davies MD [address] [place] [address] 09/26/2024 2:15 PM EDT Office Visit [address] [address] Nahomy Davies MD [address] [place] [address] documented as of this encounter Visit Diagnoses Not on filedocumented in this encounter Additional Health Concerns Assessment Noted Time PHQ-9 Depression Total Score: 0 04/23/19 9:18 AM EST documented as of this encounter Care Teams Director Of District Office Relationship Specialty Start Date End Date Nahomy Davies MD [address] [place] [phone] PCP - General Internal Medicine 01/13/23 documented as of this encounter
--- OUTSIDE RECORDS SUMMARY | 2024-07-25 17:21 | XMS_ITS | Encounter Summary ---
Author Organization [employer] Address 75 [facility] 7t [place] [address] Care Team Providers Care Plate Painter Apprentice Name Role Phone Nahomy Davies MD Primary Care Pro vider Reason for Visit * Reason Comments Med Refill Encounter Details Date Type Department Care Team ([facility] st Contact Info) Description 06/05/2023 Refill [facility] 230 [place] [address] Nahomy Davies MD 230 [place] [address] Social History Tobacco Use Types Packs/Day Years [...] 08/06/2024 11:30 AM EDT Clinical Support [address] [address] 08/28/2024 1:15 PM EDT Office Visit [address] [address] Nahomy Davies MD [address] [place] [address] 09/26/2024 2:15 PM EDT Office Visit [address] [address] Nahomy Davies MD [address] [place] [address] documented as of this encounter Visit Diagnoses Not on filedocumented in this encounter Additional Health Concerns Assessment Noted Time PHQ-9 Depression Total Score: 0 04/23/19 9:18 AM EST documented as of this encounter Care Teams Plate Painter Apprentice Relationship Specialty Start Date End Date Nahomy Davies MD [address] [place] [address] [phone] PCP - General Internal Medicine 01/13/23 documented as of this encounter
--- OUTSIDE RECORDS SUMMARY | 2024-07-25 17:21 | XMS_ITS | Encounter Summary ---
Author Organization [employer] Address 75 [facility] 7t [place] [address] Care Team Providers Care Threat Monitoring Analyst Name Role Phone Nahomy Davies MD Primary Care Pro vider Reason for Visit * Reason Comments Med Refill Encounter Details Date Type Department Care Team ([facility] st Contact Info) Description 01/31/2023 Refill [facility] MEDICINE 230 [place], [place] [phone] Nancy Larose FNP [address] [place] [address] Dept [place] [address] Social History Tobacco Use Types Packs/Day Years [...] 08/06/2024 11:30 AM EDT Clinical Support [address] [address] 08/28/2024 1:15 PM EDT Office Visit [address] [address] Nahomy Davies MD [address] [place] [address] 09/26/2024 2:15 PM EDT Office Visit [address] [address] Nahomy Davies MD [address] [place] [address] documented as of this encounter Visit Diagnoses Not on filedocumented in this encounter Additional Health Concerns Assessment Noted Time PHQ-9 Depression Total Score: 0 04/23/19 9:18 AM EST documented as of this encounter Care Teams Threat Monitoring Analyst Relationship Specialty Start Date End Date Nahomy Davies MD [address] [place] [address] PCP - General Internal Medicine 01/13/23 documented as of this encounter
--- OUTSIDE RECORDS SUMMARY | 2024-07-25 17:21 | XMS_ITS | Encounter Summary ---
Author Organization [employer] Address [address] [facility] [address] 7t [place] [address] Care Team Providers Care Blanket Inspector Name Role Phone Nahomy Davies MD Primary Care Pro vider Reason for Visit * Reason Comments Med Refill Encounter Details Date Type Department Care Team ([facility] st Contact Info) Description 07/10/2024 Refill [facility] MED & PEDS [address] [place], [place] [phone] Irene Mei MD 230 [place] [address] Type 2 diabetes mellitus without complication, without long-term current use of insulin ([facility]) Social History Tobacco Use Types Packs/Day [...] 08/06/2024 11:30 AM EDT Clinical Support [address] [address] 08/28/2024 1:15 PM EDT Office Visit [address] [address] Nahomy Davies MD [address] [place] [address] 09/26/2024 2:15 PM EDT Office Visit [address] [address] Nahomy Davies MD [address] [place] [address] documented as of this encounter Visit Diagnoses Diagnosis Type 2 diabetes mellitus without complication, without long-term current use of insulin ([facility]) documented in this encounter Additional Health Concerns Assessment Noted Time PHQ-9 Depression Total Score: 0 04/23/19 9:18 AM EST documented as of this encounter Care Teams Blanket Inspector Relationship Specialty Start Date End Date Nahomy Davies MD [address] [place] [address] PCP - General Internal Medicine 01/13/23 documented as of this encounter
--- OUTSIDE RECORDS SUMMARY | 2024-07-25 17:21 | XMS_ITS | Encounter Summary ---
Author Organization [employer] Address 75 [facility] 7t [place] [address] Care Team Providers Care Media Marketing Director Name Role Phone Nahomy Davies MD Primary Care Pro vider Reason for Visit * Reason Comments Med Refill Encounter Details Date Type Department Care Team ([facility] st Contact Info) Description 02/23/2024 Refill [facility] MEDICINE 230 [place], [place] [phone] Irene Mei MD 230 [place], [place] [phone] Type 2 diabetes mellitus with other specified complication, with long-term current use of insulin ([facility]); Shortness of breath Social History [...] Description 08/06/2024 11:30 AM EDT Clinical Support [address] [address] 08/28/2024 1:15 PM EDT Office Visit [address] [address] Nahomy Davies MD [address] [place] [address] 09/26/2024 2:15 PM EDT Office Visit [address] [address] Nahomy Davies MD [address] [place] [address] documented as of this encounter Visit Diagnoses Diagnosis Type 2 diabetes mellitus with other specified complication, with long-term current use of insulin ([facility]) Shortness of breath documented in this encounter Additional Health Concerns Assessment Noted Time PHQ-9 Depression Total Score: 0 04/23/19 23 9:18 AM EST documented as of this encounter Care Teams Media Marketing Director Relationship Specialty Start Date End Date Nahomy Davies MD [address] [place] [phone] PCP - General Internal Medicine 01/13/23 documented as of this encounter
--- OUTSIDE RECORDS SUMMARY | 2024-07-25 17:21 | XMS_ITS | Encounter Summary ---
Author Organization [employer] Address 75 [facility] 7t [place] [address] Care Team Providers Care Fine Craft Artist Name Role Phone Nahomy Davies MD Primary Care Pro vider Reason for Visit * Reason Comments Med Refill Encounter Details Date Type Department Care Team ([facility] st Contact Info) Description 07/04/2023 Refill [facility] MEDICINE 230 [place], [place] [phone] Nahomy Davies MD 230 [place] [address] Social History Tobacco Use Types Packs/Day Years [...] Description 08/06/2024 11:30 AM EDT Clinical Support [address] [address] 08/28/2024 1:15 PM EDT Office Visit [address] [address] Nahomy Davies MD [address] [place] [address] 09/26/2024 2:15 PM EDT Office Visit [address] [address] Nahomy Davies MD [address] [place] [address] documented as of this encounter Visit Diagnoses Not on filedocumented in this encounter Additional Health Concerns Assessment Noted Time PHQ-9 Depression Total Score: 0 04/23/19 9:18 AM EST documented as of this encounter Care Teams Fine Craft Artist Relationship Specialty Start Date End Date Nahomy Davies MD [address] [place] [address] [phone] PCP - General Internal Medicine 01/13/23 documented as of this encounter
[2024-07-25 17:39] LABS: Troponin-I High Sensitivity < 2.7 ng/L (<3.5-17.0)
[2024-07-25 18:16] VITALS: BP 118/47; PULSE 56; RESP 14; TEMP 36.1; O2SAT 98
[2024-07-25] MEDS: Magnesium Hydrox/Alum Hydrox 30 ML ORAL.SUSP PO (18:49)
[2024-07-25 18:55] VITALS: BP 118/47; PULSE 56; RESP 14; TEMP 36.1; O2SAT 98
== END 2024-07-25 18:56 | disposition home or self-care (01) ==
PROVIDERS: Registered Nurse Emergency; Emergency Provider Emergency Medicine; PCP Student in an Organized Health Care Education/Training Program
DX: R07.9 Chest pain, unspecified (principal); R51.9 Headache, unspecified; R29.700 NIHSS score 0; Z03.818 Encounter for observation for suspected exposure to other biological agents ruled out; E11.9 Type 2 diabetes mellitus without complications; I10 Essential (primary) hypertension; E78.5 Hyperlipidemia, unspecified; J45.909 Unspecified asthma, uncomplicated; Z79.82 Long term (current) use of aspirin; Z79.899 Other long term (current) drug therapy; Z79.4 Long term (current) use of insulin
CPT/HCPCS: 0241U; 36415; 70450; 71046; 80053; 83735; 83880; 84484; 85025; 85610; 93005; 99284; 99285

== ENCOUNTER → 2024-07-25 13:59 | Outpatient (BNV) | payer OTHER, SELFPAY | PROVIDERS: Emergency Provider Emergency Medicine; PCP Student in an Organized Health Care Education/Training Program; Visit Provider Internal Medicine Cardiovascular Disease | DX: R00.1 Bradycardia, unspecified (principal) | CPT/HCPCS: 93010 ==

== ENCOUNTER → 2024-07-25 14:02 | Outpatient (BNV) | payer OTHER, SELFPAY | PROVIDERS: Emergency Provider Emergency Medicine; PCP Student in an Organized Health Care Education/Training Program; Visit Provider Radiology Diagnostic Radiology | DX: R42 Dizziness and giddiness (principal); R51.9 Headache, unspecified; R07.9 Chest pain, unspecified | CPT/HCPCS: 70450; 71046 ==

== ENCOUNTER 2024-08-16 11:13 | Outpatient (REF) | payer OTHER, SELFPAY ==
--- OUTSIDE RECORDS SUMMARY | 2024-08-16 12:41 | XMS_ITS | Encounter Summary ---
Author Organization [employer] Address 75 [facility] 7t [place] [address] Care Team Providers Care Clinical Supervisor Name Role Phone Nahomy Davies MD Primary Care Pro vider Reason for Visit * Reason Comments Med Refill Encounter Details Date Type Department Care Team ([facility] st Contact Info) Description 11/08/2023 Refill [facility] MEDICINE 230 [place] [address] Nahomy Davies MD 230 [place] [address] Type 2 diabetes mellitus without complication, without long-term current use of insulin ([facility]) Social History Tobacco Use Types [...] Care Team (Late st Contact Info) Description 08/28/2024 1:15 PM EDT Office Visit [address] [address] Nahomy Davies MD [address] [place] [address] 09/26/2024 2:15 PM EDT Office Visit [address] [address] Nahomy Davies MD [address] [place] [address] 10/26/2024 3:45 PM EDT Office Visit [address] [address] Karrie Carlisle MD [address] [place] [address] documented as of this encounter Visit Diagnoses Diagnosis Type 2 diabetes mellitus without complication, without long-term current use of insulin ([facility]) documented in this encounter Additional Health Concerns Assessment Noted Time PHQ-9 Depression Total Score: 0 04/23/19 23 9:18 AM EST documented as of this encounter Care Teams Clinical Supervisor Relationship Specialty Start Date End Date Nahomy Davies MD [address] [place] [address] [phone] PCP - General Internal Medicine 01/13/23 documented as of this encounter
--- OUTSIDE RECORDS SUMMARY | 2024-08-16 12:41 | XMS_ITS | Encounter Summary ---
Author Organization [employer] Address 75 [facility] 7t [place] [address] Care Team Providers Care Development Intern Name Role Phone Nahomy Davies MD Primary Care Pro vider Reason for Visit * Reason Comments Med Refill Encounter Details Date Type Department Care Team ([facility] st Contact Info) Description 11/08/2023 Refill [facility] MEDICINE 230 [place] [address] Nahomy Davies MD 230 [place] [address] Type 2 diabetes mellitus without complication, without long-term current use of insulin ([facility]) Social History Tobacco Use [...] Description 08/28/2024 1:15 PM EDT Office Visit [address] [address] Nahomy Davies MD [address] [place] [address] 09/26/2024 2:15 PM EDT Office Visit [address] [address] Nahomy Davies MD [address] [place] [address] 10/26/2024 3:45 PM EDT Office Visit [address] [address] Karrie Carlisle MD [address] [place] [address] documented as of this encounter Visit Diagnoses Diagnosis Type 2 diabetes mellitus without complication, without long-term current use of insulin ([facility]) documented in this encounter Additional Health Concerns Assessment Noted Time PHQ-9 Depression Total Score: 0 04/23/19 23 9:18 AM EST documented as of this encounter Care Teams Development Intern Relationship Specialty Start Date End Date Nahomy Davies MD [address] [place] [address] [phone] PCP - General Internal Medicine 01/13/23 documented as of this encounter
--- OUTSIDE RECORDS SUMMARY | 2024-08-16 12:41 | XMS_ITS | Encounter Summary ---
Author Organization [employer] Address 75 [facility] 7t [place] [address] Care Team Providers Care Public Stenographer Name Role Phone Nahomy Davies MD Primary Care Pro vider Reason for Visit * Reason Comments Med Refill Encounter Details Date Type Department Care Team ([facility] st Contact Info) Description 11/11/2023 Refill [facility] MEDICINE [address] [place] [address] Nahomy Davies MD 230 [place] [address] Type 2 diabetes mellitus without complication, without long-term current use of insulin ([facility]) Social History [...] Description 08/28/2024 1:15 PM EDT Office Visit [address] [address] Nahomy Davies MD [address] [place] [address] 09/26/2024 2:15 PM EDT Office Visit [address] [address] Nahomy Davies MD [address] [place] [address] 34[address] 10/26/2024 3:45 PM EDT Office Visit [address] [address] Karrie Carlisle MD [address] [place] [address] documented as of this encounter Visit Diagnoses Diagnosis Type 2 diabetes mellitus without complication, without long-term current use of insulin ([facility]) documented in this encounter Additional Health Concerns Assessment Noted Time PHQ-9 Depression Total Score: 0 04/23/19 23 9:18 AM EST documented as of this encounter Care Teams Public Stenographer Relationship Specialty Start Date End Date Nahomy Davies MD [address] [place] [address] [phone] PCP - General Internal Medicine 01/13/23 documented as of this encounter
--- OUTSIDE RECORDS SUMMARY | 2024-08-16 12:42 | XMS_ITS | Encounter Summary ---
Author Organization [employer] Address 75 [facility] 7t [place] [address] Care Team Providers Care Buffing Machine Operator Semiautomatic Name Role Phone Nahomy Davies MD Primary Care Pro vider Reason for Visit * Reason Comments Med Refill Encounter Details Date Type Department Care Team ([facility] st Contact Info) Description 02/02/[address] [facility] MEDICINE 230 [place], [place] [phone] Nahomy Davies MD 230 [place] [address] Iron deficiency anemia, unspecified iron deficiency anemia [...] Upcoming Encounters Date Type Department Care Team ([facility] st Contact Info) Description 08/28/2024 1:15 PM EDT Office Visit [address] [address] Nahomy Davies MD [address] [place] [address] 09/26/2024 2:15 PM EDT Office Visit [address] [address] Nahomy Davies MD [address] [place] [address] 10/26/2024 3:45 PM EDT Office Visit [address] [address] Karrie Carlisle MD [address] [place] [address] documented as of this encounter Visit Diagnoses Diagnosis Iron deficiency anemia, unspecified iron deficiency anemia type Mixed hyperlipidemia documented in this encounter Additional Health Concerns Assessment Noted Time PHQ-9 Depression Total Score: 0 04/23/19 23 9:18 AM EST documented as of this encounter Care Teams Buffing Machine Operator Semiautomatic Relationship Specialty Start Date End Date Nahomy Davies MD [address] [place] [phone] PCP - General Internal Medicine 01/13/23 documented as of this encounter
--- OUTSIDE RECORDS SUMMARY | 2024-08-16 12:42 | XMS_ITS | Encounter Summary ---
Author Organization [employer] Address [address] [facility] [address] 7t [place] [address] Care Team Providers Care Feather Boner Name Role Phone Nahomy Davies MD Primary Care Pro vider Reason for Visit * Reason Comments Med Refill Encounter Details Date Type Department Care Team ([facility] st Contact Info) Description 04/20/2024 Refill [facility] MED & PEDS [address] [place], [place] [phone] Suyapa Doyle MD 230 [place] [address] Iron deficiency anemia, unspecified iron deficiency anemia [...] Upcoming Encounters Date Type Department Care Team ([facility] st Contact Info) Description 08/28/2024 1:15 PM EDT Office Visit [address] [address] Nahomy Davies MD [address] [place] [address] 09/26/2024 2:15 PM EDT Office Visit [address] [address] Nahomy Davies MD [address] [place] [address] 10/26/2024 3:45 PM EDT Office Visit [address] [address] Karrie Carlisle MD [address] [place] [address] documented as of this encounter Visit Diagnoses Diagnosis Iron deficiency anemia, unspecified iron deficiency anemia type documented in this encounter Additional Health Concerns Assessment Noted Time PHQ-9 Depression Total Score: 0 04/23/19 23 9:18 AM EST documented as of this encounter Care Teams Feather Boner Relationship Specialty Start Date End Date Nahomy Davies MD [address] [place] [address] PCP - General Internal Medicine 01/13/23 documented as of this encounter
--- OUTSIDE RECORDS SUMMARY | 2024-08-16 12:42 | XMS_ITS | Encounter Summary ---
Author Organization [employer] Address 75 [facility] 7t [place] [address] Care Team Providers Care Handyperson Name Role Phone Nahomy Davies MD Primary Care Pro vider Reason for Visit * Reason Comments Med Refill Encounter Details Date Type Department Care Team ([facility] st Contact Info) Description 04/20/2024 Refill [facility] CHC MED & PEDS [address] [place], [place] [phone] Nahomy Davies MD 230 [place] [address] Mixed hyperlipidemia Social History Tobacco Use Types [...] Description 08/28/2024 1:15 PM EDT Office Visit [facility] MEDICINE [address] [place] [address] Nahomy Davies MD [address] [place] [address] 09/26/2024 2:15 PM EDT Office Visit [address] [address] Nahomy Davies MD [address] [place] [address] 216[address] 10/26/2024 3:45 PM EDT Office Visit [address] [address] Karrie Carlisle MD [address] [place] [address] documented as of this encounter Visit Diagnoses Diagnosis Mixed hyperlipidemia documented in this encounter Additional Health Concerns Assessment Noted Time PHQ-9 Depression Total Score: 0 04/23/19 23 9:18 AM EST documented as of this encounter Care Teams Handyperson Relationship Specialty Start Date End Date Nahomy Davies MD [address] [place] [address] PCP - General Internal Medicine 01/13/23 documented as of this encounter
--- OUTSIDE RECORDS SUMMARY | 2024-08-16 12:42 | XMS_ITS | Encounter Summary ---
Author Organization [employer] Address [address] [place] [address] 7 [place] [address] Care Team Providers Care Cigar Maker Name Role Phone Nancy Larose [facility] Primary Care Provider +1- [phone] Nahomy Davies MD Primary Care Pro vider Reason for Visit * Reason Comments Med Refill Encounter Details Date Type Department Care Team (Late Contact Info) Description 09/23/[address] [facility] MEDICINE [address] [place] [address] Nancy Larose FN[address] [place] [address] Shortness of breath Social History Tobacco Use [...] Department Care Team (Late Contact Info) Description 08/28/2024 1:15 PM EDT Office Visit [facility] MEDICINE [address] [place] [address] Nahomy Davies MD [address] [place] [address] 09/26/2024 2:15 PM EDT Office Visit [facility] MEDICINE [address] [place] [address] [phone] Nahomy Davies MD 230 [place] [address] 10/26/2024 3:45 PM EDT Office Visit [address] [phone] Karrie Carlisle MD [address] [place] [address] [phone] documented as of this encounter Visit Diagnoses Diagnosis Shortness of breath documented in this encounter Additional Health Concerns Assessment Noted Time PHQ-9 Depression Total Score: 0 04/23/19 9:18 AM EST documented as of this encounter Care Teams Cigar Maker Relationship Specialty Start Date End Date Nancy Larose FNP PCP - General Family Medicine 12/08/21 01/12/23 Nahomy Davies MD [address] [place] [address] [phone] PCP - General Internal Medicine 01/13/23 documented as of this encounter
--- OUTSIDE RECORDS SUMMARY | 2024-08-16 12:42 | XMS_ITS | Encounter Summary ---
Author Organization [employer] Address [address] [facility] [address] 7t [place] [address] Care Team Providers Care Information Clerk Cashier Name Role Phone Nahomy Davies MD Primary Care Pro vider Reason for Visit * Reason Comments Med Refill Encounter Details Date Type Department Care Team ([facility] st Contact Info) Description 02/27/2024 Refill [facility] MEDICINE 230 [place], [place] [phone] Irene Mei MD 230 [place], [place] [phone] Shortness of breath; Type 2 diabetes mellitus with other specified complication, with long-term current use of insulin ([facility]) Social History [...] Description 08/28/2024 1:15 PM EDT Office Visit [facility] MEDICINE [address] [place] [address] Nahomy Davies MD [address] [place] [address] 09/26/2024 2:15 PM EDT Office Visit [address] [address] Nahomy Davies MD [address] [place] [address] 10/26/2024 3:45 PM EDT Office Visit [address] [address] Karrie Carlisle MD [address] [place] [address] documented as of this encounter Visit Diagnoses Diagnosis Shortness of breath Type 2 diabetes mellitus with other specified complication, with long-term current use of insulin ([facility]) documented in this encounter Additional Health Concerns Assessment Noted Time PHQ-9 Depression Total Score: 0 04/23/19 23 9:18 AM EST documented as of this encounter Care Teams Information Clerk Cashier Relationship Specialty Start Date End Date Nahomy Davies MD [address] [place] [address] PCP - General Internal Medicine 01/13/23 documented as of this encounter
--- OUTSIDE RECORDS SUMMARY | 2024-08-16 12:42 | XMS_ITS | Encounter Summary ---
Author Organization [employer] Address 75 [facility] 7t [place] [address] Care Team Providers Care Metal Bench Patternmaker Name Role Phone Nancy Larose DARRELL Primary Care Provider +1- [phone] Nahomy Davies MD Primary Care Pro vider Encounter Details Date Type Department Care Team ([facility] st Contact Info) Description 10/19/2022 Orders Only [facility] MEDICINE [address] [place] [address] Kary Lux LPN Social History Tobacco Use [...] Upcoming Encounters Date Type Department Care Team ([facility] Contact Info) Description 08/28/2024 1:15 PM EDT Office Visit [facility] MEDICINE [address] [place] [address] Nahomy Davies MD [address] [place] [address] [phone] 09/26/2024 2:15 PM EDT Office Visit [address] [phone] Nahomy Davies MD [address] [place] [address] [phone] 10/26/2024 3:45 PM EDT Office Visit [address] [phone] Karrie Carlisle MD [address] [place] [address] [phone] documented as of this encounter Visit Diagnoses Not on filedocumented in this encounter Additional Health Concerns Assessment Noted Time PHQ-9 Depression Total Score: 0 04/23/19 23 9:18 AM EST documented as of this encounter Care Teams Metal Bench Patternmaker Relationship Specialty Start Date End Date Nancy Larose FNP PCP - General Family Medicine 12/08/21 01/12/23 Nahomy Davies MD [address] [place] [address] [phone] PCP - General Internal Medicine 01/13/23 documented as of this encounter
--- OUTSIDE RECORDS SUMMARY | 2024-08-16 12:42 | XMS_ITS | Encounter Summary ---
Author Organization [employer] Address [address] [facility] [address] 7t [place] [address] Care Team Providers Care Apiculture Teacher Name Role Phone Nahomy Davies MD Primary Care Pro vider Reason for Visit * Reason Comments Med Refill Encounter Details Date Type Department Care Team (Late st Contact Info) Description 07/10/2024 Refill [facility] CHC MED & PEDS [address] [place], [place] [phone] Suyapa Doyle MD 230 [place] [address] Acquired hypothyroidism; Osteopenia determined by x-ray; Sleep [...] Description 08/28/2024 1:15 PM EDT Office Visit [address] [address] Nahomy Davies MD [address] [place] [address] 09/26/2024 2:15 PM EDT Office Visit [address] [address] Nahomy Davies MD [address] [place] [address] 10/26/2024 3:45 PM EDT Office Visit [address] [address] Karrie Carlisle MD [address] [place] [address] documented as of this encounter Visit Diagnoses Diagnosis Acquired hypothyroidism Unspecified hypothyroidism Osteopenia determined by x-ray Sleep disturbance Unspecified sleep disturbance Iron deficiency anemia, unspecified iron deficiency anemia type documented in this encounter Additional Health Concerns Assessment Noted Time PHQ-9 Depression Total Score: 0 04/23/19 23 9:18 AM EST documented as of this encounter Care Teams Apiculture Teacher Relationship Specialty Start Date End Date Nahomy Davies MD [address] [place] [address] PCP - General Internal Medicine 01/13/23 documented as of this encounter
--- OUTSIDE RECORDS SUMMARY | 2024-08-16 12:42 | XMS_ITS | Encounter Summary ---
Author Organization [employer] Address 75 [facility] 7t [place] [address] Care Team Providers Care Heart Nurse Name Role Phone Nahomy Davies MD Primary Care Pro vider Reason for Visit * Reason Comments Med Refill Encounter Details Date Type Department Care Team ([facility] st Contact Info) Description 08/07/2024 Refill [facility] MEDICINE 230 [place], [place] [phone] Nahomy Davies MD 230 [place], [place] [phone] Type 2 diabetes mellitus without complication, without long-term current use of insulin ([facility]); Essential hypertension Social History Tobacco Use Types Packs/Day Years [...] Description 08/28/2024 1:15 PM EDT Office Visit [facility] MEDICINE [address] [place] [address] Nahomy Davies MD [address] [place] [address] 09/26/2024 2:15 PM EDT Office Visit [address] [address] Nahomy Davies MD [address] [place] [address] 10/26/2024 3:45 PM EDT Office Visit [address] [address] Karrie Carlisle MD [address] [place] [address] documented as of this encounter Visit Diagnoses Diagnosis Type 2 diabetes mellitus without complication, without long-term current use of insulin ([facility]) Essential hypertension Unspecified essential hypertension documented in this encounter Additional Health Concerns Assessment Noted Time PHQ-9 Depression Total Score: 0 04/23/19 23 9:18 AM EST documented as of this encounter Care Teams Heart Nurse Relationship Specialty Start Date End Date Nahomy Davies MD [address] [place] [address] PCP - General Internal Medicine 01/13/23 documented as of this encounter
--- OUTSIDE RECORDS SUMMARY | 2024-08-16 12:42 | XMS_ITS | Encounter Summary ---
Author Organization [employer] Address 75 [facility] 7t [place] [address] Care Team Providers Care Mail Censor Name Role Phone Nahomy Davies MD Primary Care Pro vider Reason for Visit * Reason Comments Med Refill Encounter Details Date Type Department Care Team ([facility] st Contact Info) Description 03/05/2024 Refill [facility] MEDICINE 230 [place], [place] [phone] Irene Mei MD 230 [place], [place] [phone] Type 2 diabetes mellitus with other specified complication, with long-term current use of insulin ([facility]); Shortness of breath; Chronic neck pain Social [...] Upcoming Encounters Date Type Department Care Team ([facility] st Contact Info) Description 08/28/2024 1:15 PM EDT Office Visit [facility] MEDICINE [address] [place] [address] Nahomy Davies MD [address] [place] [address] 09/26/2024 2:15 PM EDT Office Visit [address] [address] Nahomy Davies MD [address] [place] [address] 10/26/2024 3:45 PM EDT Office Visit [address] [address] Karrie Carlisle MD [address] [place] [address] documented as of this encounter Visit Diagnoses Diagnosis Type 2 diabetes mellitus with other specified complication, with long-term current use of insulin ([facility]) Shortness of breath Chronic neck pain Cervicalgia documented in this encounter Additional Health Concerns Assessment Noted Time PHQ-9 Depression Total Score: 0 04/23/19 23 9:18 AM EST documented as of this encounter Care Teams Mail Censor Relationship Specialty Start Date End Date Nahomy Davies MD [address] [place] [address] PCP - General Internal Medicine 01/13/23 documented as of this encounter
--- OUTSIDE RECORDS SUMMARY | 2024-08-16 12:42 | XMS_ITS | Encounter Summary ---
Author Organization [employer] Address 75 [facility] 7t [place] [address] Care Team Providers Care Industrial Machinery Mechanic Name Role Phone Nahomy Davies MD Primary Care Pro vider Reason for Visit * Reason Comments Med Refill Encounter Details Date Type Department Care Team ([facility] st Contact Info) Description 12/02/2023 Refill [facility] CHC MED & PEDS [address] [place], [place] [phone] Nahomy Davies MD 230 [place] [address] Social History Tobacco Use Types Packs/Day Years [...] Description 08/28/2024 1:15 PM EDT Office Visit [facility] MEDICINE [address] [place] [address] Nahomy Davies MD [address] [place] [address] 09/26/2024 2:15 PM EDT Office Visit [address] [address] Nahomy Davies MD [address] [place] [address] 10/26/2024 3:45 PM EDT Office Visit [address] [address] Karrie Carlisle MD [address] [place] [address] documented as of this encounter Visit Diagnoses Not on filedocumented in this encounter Additional Health Concerns Assessment Noted Time PHQ-9 Depression Total Score: 0 04/23/19 9:18 AM EST documented as of this encounter Care Teams Industrial Machinery Mechanic Relationship Specialty Start Date End Date Nahomy Davies MD [address] [place] [address] [phone] PCP - General Internal Medicine 01/13/23 documented as of this encounter
--- OUTSIDE RECORDS SUMMARY | 2024-08-16 12:42 | XMS_ITS | Encounter Summary ---
Author Organization [employer] Address 75 [facility] 7t [place] [address] Care Team Providers Care Oil And Gas Field Technician Name Role Phone Nahomy Davies MD Primary Care Pro vider Reason for Visit * Reason Comments Med Refill Encounter Details Date Type Department Care Team ([facility] st Contact Info) Description 03/07/2024 Refill [facility] 230 [place], [place] [phone] Irene Mei MD 230 [place], [place] [phone] Shortness of breath; Type 2 diabetes mellitus with other specified complication, with long-term current use of insulin ([facility]); Chronic neck pain Social History Tobacco Use [...] Upcoming Encounters Date Type Department Care Team ([facility] st Contact Info) Description 08/28/2024 1:15 PM EDT Office Visit [facility] [address] [place] [address] Nahomy Davies MD [address] [place] [address] 09/26/2024 2:15 PM EDT Office Visit [address] [address] Nahomy Davies MD [address] [place] [address] 10/26/2024 3:45 PM EDT Office Visit [address] [address] Karrie Carlisle MD [address] [place] [address] documented as of this encounter Visit Diagnoses Diagnosis Shortness of breath Type 2 diabetes mellitus with other specified complication, with long-term current use of insulin ([facility]) Chronic neck pain Cervicalgia documented in this encounter Additional Health Concerns Assessment Noted Time PHQ-9 Depression Total Score: 0 04/23/19 23 9:18 AM EST documented as of this encounter Care Teams Oil And Gas Field Technician Relationship Specialty Start Date End Date Nahomy Davies MD [address] [place] [phone] PCP - General Internal Medicine 01/13/23 documented as of this encounter
--- OUTSIDE RECORDS SUMMARY | 2024-08-16 12:42 | XMS_ITS | Encounter Summary ---
Author Organization [employer] Address 75 [facility] 7t [place] [address] Care Team Providers Care Associate Financial Representative Name Role Phone Nahomy Davies MD Primary Care Pro vider Reason for Visit * Reason Comments Med Refill Encounter Details Date Type Department Care Team ([facility] st Contact Info) Description 07/10/2024 Refill [facility] MEDICINE 230 [place] [address] Nahomy Davies MD 230 [place] [address] Iron deficiency anemia, unspecified iron deficiency anemia [...] Description 08/28/2024 1:15 PM EDT Office Visit [address] [address] Nahomy Davies MD [address] [place] [address] 09/26/2024 2:15 PM EDT Office Visit [address] [address] Nahomy Davies MD [address] [place] [address] 10/26/2024 3:45 PM EDT Office Visit [address] [address] Karrie Carlisle MD [address] [place] [address] documented as of this encounter Visit Diagnoses Diagnosis Iron deficiency anemia, unspecified iron deficiency anemia type documented in this encounter Additional Health Concerns Assessment Noted Time PHQ-9 Depression Total Score: 0 04/23/19 23 9:18 AM EST documented as of this encounter Care Teams Associate Financial Representative Relationship Specialty Start Date End Date Nahomy Davies MD [address] [place] [address] PCP - General Internal Medicine 01/13/23 documented as of this encounter
--- OUTSIDE RECORDS SUMMARY | 2024-08-16 12:42 | XMS_ITS | Encounter Summary ---
Author Organization [employer] Address [address] [place] [address] 7t [place] [address] Care Team Providers Care Supervisor Tank House Name Role Phone Nancy Larose DARRELL Primary Care Provider +1- [phone] Nahomy Davies MD Primary Care Pro vider Encounter Details Date Type Department Care Team (Late st Contact Info) Description 03/30/2022 Orders Only [facility] [address] [place] [address] [phone] Kary Lux LPN Social History Tobacco Use [...] 1:15 PM EDT Office Visit [facility] [address] [place] [address] [phone] Nahomy Davies MD [address] [place] [address] [phone] 09/26/2024 2:15 PM EDT Office Visit [facility] [address] [place] [address] [phone] Nahomy Davies MD [address] [place] [address] [phone] 10/26/2024 3:45 PM EDT Office Visit [facility] 230 [place], [place] [phone] Karrie Carlisle MD 230 [place], [place] [phone] documented as of this encounter Visit Diagnoses Not on filedocumented in this encounter Care Teams Supervisor Tank House Relationship Specialty Start Date End Date Nancy Larose FNP PCP - General Family Medicine 12/08/21 01/12/23 Nahomy Davies MD [address] [place] [address] [phone] PCP - General Internal Medicine 01/13/23 documented as of this encounter
--- OUTSIDE RECORDS SUMMARY | 2024-08-16 12:42 | XMS_ITS | Encounter Summary ---
Author Organization [employer] Address 75 [facility] 7t [place] [address] Care Team Providers Care Fishing Lure Assembler Name Role Phone Nahomy Davies MD Primary Care Pro vider Reason for Visit * Reason Comments Med Refill Encounter Details Date Type Department Care Team ([facility] st Contact Info) Description 03/21/2024 Refill [facility] CHC MED & PEDS [address] [place], [place] [phone] Nahomy Davies MD [address] [place] [address] Type 2 diabetes mellitus without complication, without long-term current use of insulin (CMS/HCC); Type 2 diabetes mellitus without complication, unspecified whether snf insulin use (CMS/HCC); Iron deficiency anemia, unspecified iron deficiency anemia [...] Description 08/28/2024 1:15 PM EDT Office Visit [facility] MEDICINE [address] [place] [address] Nahomy Davies MD [address] [place] [address] 09/26/2024 2:15 PM EDT Office Visit [address] [address] Nahomy Davies MD [address] [place] [address] 10/26/2024 3:45 PM EDT Office Visit [address] [phone] Karrie Carlisle MD [address] [place] [address] documented as of this encounter Visit Diagnoses Diagnosis Type 2 diabetes mellitus without complication, unspecified whether superintendent container terminal insulin use ([facility]) Iron deficiency anemia, unspecified iron deficiency anemia type Acquired hypothyroidism Unspecified hypothyroidism Sleep disturbance Unspecified sleep disturbance Osteopenia determined by x-ray documented in this encounter Additional Health Concerns Assessment Noted Time PHQ-9 Depression Total Score: 0 04/23/19 9:18 AM EST documented as of this encounter Care Teams Fishing Lure Assembler Relationship Specialty Start Date End Date Nahomy Davies MD [address] [place] [phone] PCP - General Internal Medicine 01/13/23 documented as of this encounter
--- OUTSIDE RECORDS SUMMARY | 2024-08-16 12:42 | XMS_ITS | Encounter Summary ---
Author Organization [employer] Address 75 [facility] 7t [place] [address] Care Team Providers Care Foil Cutter Name Role Phone Nahomy Davies MD Primary Care Pro vider Reason for Visit * Reason Comments Med Refill Encounter Details Date Type Department Care Team ([facility] st Contact Info) Description 11/07/2023 Refill [facility] MEDICINE [address] [place] [address] Nahomy Davies MD 230 [place] [address] Type 2 diabetes mellitus without complication, without long-term current use of insulin ([facility]) Social History Tobacco Use Types Packs/Day Years [...] Description 08/28/2024 1:15 PM EDT Office Visit [address] [address] Nahomy Davies MD [address] [place] [address] 09/26/2024 2:15 PM EDT Office Visit [address] [address] Nahomy Davies MD [address] [place] [address] 10/26/2024 3:45 PM EDT Office Visit [address] [address] Karrie Carlisle MD [address] [place] [address] documented as of this encounter Visit Diagnoses Diagnosis Type 2 diabetes mellitus without complication, without long-term current use of insulin ([facility]) documented in this encounter Additional Health Concerns Assessment Noted Time PHQ-9 Depression Total Score: 0 04/23/19 23 9:18 AM EST documented as of this encounter Care Teams Foil Cutter Relationship Specialty Start Date End Date Nahomy Davies MD [address] [place] [address] [phone] PCP - General Internal Medicine 01/13/23 documented as of this encounter
--- OUTSIDE RECORDS SUMMARY | 2024-08-16 12:42 | XMS_ITS | Encounter Summary ---
Author Organization [employer] Address [address] [facility] [address] 7t [place] [address] Care Team Providers Care Material Control Manager Name Role Phone Nahomy Davies MD Primary Care Pro vider Reason for Visit * Reason Comments Med Refill Encounter Details Date Type Department Care Team ([facility] st Contact Info) Description 01/18/2024 Refill [facility] CHC MED & PEDS [address] [place], [place] [phone] Suyapa Doyle MD 230 [place] [address] Type 2 diabetes mellitus with other specified complication, with long-term current use of insulin ([facility]) Social History Tobacco Use Types [...] Description 08/28/2024 1:15 PM EDT Office Visit [address] [address] Nahomy Davies MD [address] [place] [address] 09/26/2024 2:15 PM EDT Office Visit [address] [address] Nahomy Davies MD [address] [place] [address] 10/26/2024 3:45 PM EDT Office Visit [address] [address] Karrie Carlisle MD [address] [place] [address] documented as of this encounter Visit Diagnoses Diagnosis Type 2 diabetes mellitus with other specified complication, with long-term current use of insulin ([facility]) documented in this encounter Additional Health Concerns Assessment Noted Time PHQ-9 Depression Total Score: 0 04/23/19 23 9:18 AM EST documented as of this encounter Care Teams Material Control Manager Relationship Specialty Start Date End Date Nahomy Davies MD [address] [place] [phone] PCP - General Internal Medicine 01/13/23 documented as of this encounter
--- OUTSIDE RECORDS SUMMARY | 2024-08-16 12:42 | XMS_ITS | Encounter Summary ---
Author Organization [employer] Address [address] [facility] [address] 7[address] [place] [address] Care Team Providers Care Mail Forwarding System Markup Clerk Name Role Phone Nahomy Davies MD Primary Care Pro vider Reason for Visit * Reason Comments Med Refill Encounter Details Date Type Department Care Team ([facility] st Contact Info) Description 07/10/2024 Refill [facility] CHC MED & PEDS [address] [place], [place] [phone] Irene Mei MD 230 [place] [address] Type 2 diabetes mellitus without complication, without long-term current use of insulin ([facility]) Social History Tobacco Use Types [...] Description 08/28/2024 1:15 PM EDT Office Visit [facility] [address] [place] [address] Nahomy Davies MD [address] [place] [address] 09/26/2024 2:15 PM EDT Office Visit [address] [address] Nahomy Davies MD [address] [place] [address] 10/26/2024 3:45 PM EDT Office Visit [address] [address] Karrie Carlisle MD [address] [place] [address] documented as of this encounter Visit Diagnoses Diagnosis Type 2 diabetes mellitus without complication, without long-term current use of insulin ([facility]) documented in this encounter Additional Health Concerns Assessment Noted Time PHQ-9 Depression Total Score: 0 04/23/19 23 9:18 AM EST documented as of this encounter Care Teams Mail Forwarding System Markup Clerk Relationship Specialty Start Date End Date Nahomy Davies MD [address] [place] [phone] PCP - General Internal Medicine 01/13/23 documented as of this encounter
--- OUTSIDE RECORDS SUMMARY | 2024-08-16 12:42 | XMS_ITS | Encounter Summary ---
Author Organization [employer] Address [address] [facility] [address] 7t [place] [address] Care Team Providers Care Strategic Communications Specialist Name Role Phone Nahomy Davies MD Primary Care Pro vider Reason for Visit * Reason Comments Med Refill Encounter Details Date Type Department Care Team ([facility] st Contact Info) Description 02/23/2024 Refill [facility] MEDICINE 230 [place], [place] [phone] Irene Mei MD [address] [place], [place] [phone] Type 2 diabetes mellitus with other specified complication, with long-term current use of insulin ([facility]); Shortness of breath Social History Tobacco Use [...] Description 08/28/2024 1:15 PM EDT Office Visit [facility] MEDICINE [address] [place] [address] Nahomy Davies MD [address] [place] [address] 09/26/2024 2:15 PM EDT Office Visit [address] [address] Nahomy Davies MD [address] [place] [address] 10/26/2024 3:45 PM EDT Office Visit [address] [address] Karrie Carlisle MD [address] [place] [address] documented as of this encounter Visit Diagnoses Diagnosis Type 2 diabetes mellitus with other specified complication, with long-term current use of insulin ([facility]) Shortness of breath documented in this encounter Additional Health Concerns Assessment Noted Time PHQ-9 Depression Total Score: 0 04/23/19 23 9:18 AM EST documented as of this encounter Care Teams Strategic Communications Specialist Relationship Specialty Start Date End Date Nahomy Davies MD [address] [place] [phone] PCP - General Internal Medicine 01/13/23 documented as of this encounter
--- OUTSIDE RECORDS SUMMARY | 2024-08-16 12:42 | XMS_ITS | Encounter Summary ---
Author Organization [employer] Address [address] [facility] [address] 7t [place] [address] Care Team Providers Care Geospatial Systems Integrator Name Role Phone Nahomy Davies MD Primary Care Pro vider Reason for Visit * Reason Comments Med Refill Encounter Details Date Type Department Care Team ([facility] st Contact Info) Description 08/07/2024 Refill [facility] CHC MED & PEDS [address] [place], [place] [phone] Irene Mei MD 230 [place] [address] Social History Tobacco Use Types Packs/Day Years [...] Description 08/28/2024 1:15 PM EDT Office Visit [facility] MEDICINE [address] [place] [address] Nahomy Davies MD [address] [place] [address] 09/26/2024 2:15 PM EDT Office Visit [address] [address] Nahomy Davies MD [address] [place] [address] 10/26/2024 3:45 PM EDT Office Visit [address] [address] Karrie Carlisle MD [address] [place] [address] documented as of this encounter Visit Diagnoses Not on filedocumented in this encounter Additional Health Concerns Assessment Noted Time PHQ-9 Depression Total Score: 0 04/23/19 23 9:18 AM EST documented as of this encounter Care Teams Geospatial Systems Integrator Relationship Specialty Start Date End Date Nahomy Davies MD [address] [place] [phone] PCP - General Internal Medicine 10/5/23 documented as of this encounter
--- OUTSIDE RECORDS SUMMARY | 2024-08-16 12:42 | XMS_ITS | Encounter Summary ---
Author Organization [employer] Address 75 [facility] 7t [place] [address] Care Team Providers Care Ladle Liner Helper Name Role Phone Nahomy Davies MD Primary Care Pro vider Reason for Visit * Reason Comments Med Refill Encounter Details Date Type Department Care Team ([facility] st Contact Info) Description 02/07/2023 Refill [facility] MEDICINE 230 [place] [address] Nancy Larose FNP [address] [facility] Dept [place] [address] Social History Tobacco Use Types Packs/Day Years [...] Description 08/28/2024 1:15 PM EDT Office Visit [facility] MEDICINE [address] [place] [address] Nahomy Davies MD [address] [place] [address] 09/26/2024 2:15 PM EDT Office Visit [address] [address] Nahomy Davies MD [address] [place] [address] 10/26/2024 3:45 PM EDT Office Visit [address] [address] Karrie Carlisle MD [address] [place] [address] documented as of this encounter Visit Diagnoses Not on filedocumented in this encounter Additional Health Concerns Assessment Noted Time PHQ-9 Depression Total Score: 0 04/23/19 9:18 AM EST documented as of this encounter Care Teams Ladle Liner Helper Relationship Specialty Start Date End Date Nahomy Davies MD [address] [place] [phone] PCP - General Internal Medicine 01/13/23 documented as of this encounter
--- OUTSIDE RECORDS SUMMARY | 2024-08-16 12:42 | XMS_ITS | Encounter Summary ---
Author Organization [email or web address] Address 75 [facility] 7t [place] [address] Care Team Providers Care Nurse Assistant Name Role Phone Nahomy Davies MD Primary Care Pro vider Reason for Visit * Reason Comments Med Refill Encounter Details Date Type Department Care Team ([facility] st Contact Info) Description 01/31/2024 Refill [facility] MEDICINE [address] [place], [place] [phone] Nahomy Davies MD 230 [place] [address] Iron deficiency anemia, unspecified iron deficiency anemia [...] Upcoming Encounters Date Type Department Care Team ([facility] st Contact Info) Description 08/28/2024 1:15 PM EDT Office Visit [address] [address] Nahomy Davies MD [address] [place] [address] 09/26/2024 2:15 PM EDT Office Visit [address] [address] Nahomy Davies MD [address] [place] [address] 10/26/2024 3:45 PM EDT Office Visit [address] [address] Karrie Carlisle MD [address] [place] [address] documented as of this encounter Visit Diagnoses Diagnosis Iron deficiency anemia, unspecified iron deficiency anemia type Mixed hyperlipidemia documented in this encounter Additional Health Concerns Assessment Noted Time PHQ-9 Depression Total Score: 0 04/23/19 23 9:18 AM EST documented as of this encounter Care Teams Nurse Assistant Relationship Specialty Start Date End Date Nahomy Davies MD [address] [place] [address] PCP - General Internal Medicine 01/13/23 documented as of this encounter
--- OUTSIDE RECORDS SUMMARY | 2024-08-16 12:42 | XMS_ITS | Encounter Summary ---
Author Organization [employer] Address 75 [facility] 7t [place] [address] Care Team Providers Care Oyster Opener Name Role Phone Nancy Larose [facility] Primary Care Provider [phone]- [phone] Nahomy Davies MD Primary Care Pro vider Reason for Visit * Reason Comments Med Refill Encounter Details Date Type Department Care Team (Late st Contact Info) Description 09/15/2022 Refill [facility] MED[facility]INE 230 [place], [place] [phone] Anamaria Herzog FNP [address] [place], [place] [phone] Type 2 diabetes mellitus with other specified complication, with long-term current use of insulin ([facility]) Social History Tobacco Use Types [...] Description 08/28/2024 1:15 PM EDT Office Visit [facility] MED[facility]INE [address] [place] [address] Nahomy Davies MD [address] [employer], [place] [phone] 09/26/2024 2:15 PM EDT Office Visit [facility] MED[facility]INE [address] [place] [address] [phone] Nahomy Davies MD [address] [employer], [place] [phone] 10/26/2024 3:45 PM EDT Office Visit [facility] MED[facility] [address] [place] [address] Karrie Carlisle MD 230 [place], [place] [phone] documented as of this encounter Visit Diagnoses Diagnosis Type 2 diabetes mellitus with other specified complication, with long-term current use of insulin ([facility]) documented in this encounter Additional Health Concerns Assessment Noted Time PHQ-9 Depression Total Score: 0 04/23/19 9:18 AM EST documented as of this encounter Care Teams Oyster Opener Relationship Specialty Start Date End Date Nancy Larose FNP PCP - General Family Medicine 12/08/21 01/12/23 Nahomy Davies MD [address] [place] [address] [phone] PCP - General Internal Medicine 01/13/23 documented as of this encounter
--- OUTSIDE RECORDS SUMMARY | 2024-08-16 12:42 | XMS_ITS | Clinical Summary ---
Author Organization [employer] Address [address] [facility] 7t [place] [address] Care Team Providers Care Eggs Inspector Name Role Phone Nahomy Davies MD [...] complication, without long-term current use of insulin ([facility]) APPLY A SMALL AMOUNT TOPICALLY TO AFFECTED [...] 100 each 11 024 Active Continuous Glucose Towel Folder ([employer] Anthony 2 [place]) device Use as directed to monitor glucose ever 8 hours. 1 each Active Continuous Glucose Sensor (FreeStyle Anthony 2 Sensor) [facility] Use as directed to monitor glucose ever 8 hours. Replace sensor every 14 days. 2 each Active insulin glargine (Lantus SoloStar) 100 UNIT/ML penIndications:Ty pe 2 diabetes mellitus with hypoglycemia without coma, with long-term current use of insulin ([facility]) Inject 18 Units under the skin at [...] complication, without long-term current use of insulin ([facility]) TAKE 2 TABLETS BY MOUTH TWO TIMES [...] complication, with long-term current use of insulin ([facility]) CHEW AND SWALLOW 4 TABLETS BY MOUTH [...] DAY ^1R1,1R4 60 tablet 3 025 Active levothyroxine (Synthroid, Levoxyl) [...] 2 diabetes mellitus without complication, unspecified whether assisted insulin use (CMS/HCC) USE TO TEST BLOOD SUGAR AND ADMINISTER INSULIN AT NOON AND IN THE EVENING (5-7 TIMES DAILY ) (BULK) 200 each 3 025 Active simvastatin (Zocor) 40 MG tabletIndications :Mixed hyperlipidemia TAKE 1 TABLET BY MOUTH AT BEDTIME ^1R4 90 tablet 3 025 Active Arnuity Ellipta 100 MCG/ACT inhaler INHALE ONE PUFF BY MOUTH EVERY DAY RINSE MOUTH AFTER USE TO REDUCE AFTERTASTE AND INCIDENCE OF CANDIDIASIS. DO NOT SWALLOW (BULK) 30 each 11 025 Active Continuous Glucose Towel Folder (FreeStyle Anthony 3 [place]) deviceIndications :Type 2 diabetes mellitus with other specified complication, with long-term current use of insulin (CMS/HCC) 1 each Once per day. Use as directed for CGM 1 each 025 Active Continuous Glucose Sensor (FreeStyle Anthony 3 Plus Sensor) miscIndications:T ype 2 diabetes mellitus with other specified complication, with long-term current use of insulin ([facility]) 1 each every 15 days. Apply 1 [...] complication, without long-term current use of insulin ([facility]) TAKE ONE TO TWO TABLETS BY MOUTH [...] complication, without long-term current use of insulin ([facility]) USE TO TEST BLOOD SUGAR THREE TIMES A DAY 100 each 11 025 Active Januvia 50 MG tablet TAKE ONE TABLET BY MOUTH EVERY DAY ^1R1 30 tablet 3 025 Active glucose blood (FreeStyle Precision Mahesh Test) test strip Test blood sugar q 8 hours 100 each 12 024 2024 Discontinued(R eorder (will not trigger notification to Pharmacy)) Ascorbic Acid (vitamin C) 250 MG tabletIndications :Iron deficiency anemia, unspecified iron deficiency anemia type TAKE ONE TABLET BY MOUTH EVERY MORNING ^1R1 30 tablet 5 024 2024 Discontinued(R eorder (will not trigger notification to Pharmacy)) Januvia 50 MG tablet TAKE ONE TABLET BY MOUTH EVERY DAY ^1R1 30 tablet 3 025 2024 Discontinued Acetaminophen Extra Strength 500 MG tabletIndications :Type 2 diabetes mellitus without complication, without long-term current use of insulin ([facility]) TAKE ONE TO TWO TABLETS BY MOUTH [...] Encounters Date Type Department Care Team Description 08/07/2024 Refill [facility] [address] [place] [address] Nahomy Davies MD Type 2 diabetes mellitus without complication, without long-term current use of insulin ([facility]); Essential hypertension 08/07/2024 Refill [facility] [address] [place] [address] Irene Mei MD 08/06/2024 Travel 08/02/2024 Telephone [facility] [address] [place] [address] Nahomy Davies MD 07/30/2024 Refill [facility] [address] [place], [place] [phone] Suyapa Doyle MD 07/27/2024 Refill [facility] [address] [place] [address] Nahomy Davies MD Type 2 diabetes mellitus without complication, without long-term current use of insulin ([facility]); Iron deficiency anemia, unspecified iron deficiency anemia type 07/26/2024 Telephone [facility] [address] [place] [address] Nahomy Davies MD Durable Medical Equipment (Recert - incont products) 07/25/2024 Orders Only GENERIC EXTERNAL DATA DEPARTMENT Provider, Generic External Data 07/12/2024 Orders Only [facility] [address] [place] [address] Nahomy Davies MD 07/12/2024 Telephone [facility] [address] [place] [address] Nahomy Davies MD Prior Auth Prescription ([place]-3) 07/10/2024 Refill [facility] [address] [place], [place] [phone] Irene Mei MD Type 2 diabetes mellitus without complication, without long-term current use of insulin ([facility]) 07/10/2024 Refill [facility] [address] [place] [address] Suyapa Doyle MD Acquired hypothyroidism; Osteopenia determined by x-ray; Sleep disturbance; Iron deficiency anemia, unspecified iron deficiency anemia type 07/10/2024 Refill [facility] [address] [place] [address] Nahomy Davies MD Iron deficiency anemia, unspecified iron deficiency anemia type 07/06/2024 10:30 AM EDT Clinical Support [facility] [address] [place] [address] Kiarra Iniguez RN Type 2 diabetes mellitus with other specified complication, with long-term current use of insulin ([facility]) 07/06/2024 Travel 07/03/2024 Refill [facility] [address] [place] [address] Nahomy Davies MD 06/25/2024 Telephone [facility] [address] [place] [address] Nahomy Davies MD Durable Medical Equipment 06/21/2024 Telephone [facility] [address] [place] [address] Nahomy Davies MD No Show 06/20/2024 Telephone [facility] [address] [place] [address] Nahomy Davies MD May recall 06/13/2024 Refill [facility] [address] [place] [address] Nahomy Davies MD Type 2 diabetes mellitus with other specified complication, with long-term current use of insulin ([facility]) 06/13/2024 Refill [facility] [address] [place] [address] Nahomy Davies MD 06/06/2024 11:00 AM EST Office Visit [facility] [address] [place] [address] Jp Snow MD Scalp mass (Primary Dx); Right knee injury, initial encounter 05/29/2024 Refill [facility] [address] [place] [address] Suyapa Doyle MD Iron deficiency anemia, unspecified iron deficiency anemia type; Mixed hyperlipidemia 05/29/2024 Refill [facility] [address] [place] [address] Nahomy Davies MD Mixed hyperlipidemia from Last 3 Months Immunizations Name Administration [...] Description 08/28/2024 1:15 PM EDT Office Visit [facility] [address] [place] [address], [place] [address] Nahomy Davies MD [address] [place] [address] [phone] 09/26/2024 2:15 PM EDT Office Visit [facility] [address] [place] [address], [place] [address] Nahomy Daives MD [address] [place] [address] [phone] 10/26/2024 3:45 PM EDT Office Visit [address] [phone] Karrie Carlisle MD [address] [place] [phone] Health Maintenance Due Date Last Done Comments [...] Sensitivity Troponin I (07/25/2024 5:03 PM EDT) Pathologist [facility] TROPONIN I HIGH SENSITIVITY <2.7 <3.5 - 17.0 ng/L [facility] Comment:The Craig high sens itivity Troponin-I results should beused in conjunction with other diagnostic information suchas ECG, clinical observations and information, and patientsymptoms to aid in the diagnosis of GA. 07/25/2024 5:03 PM EDT 07/25/2024 5:07 PM EDT us Generic External Data Provider LAB BLOOD ORDERAB LES Final Result [facility] [address] [place] [phone] * CT Head w/o Contrast (07/25/2024 3:47 PM EDT) Anatomical Region Laterality Modality Head, Neck Computed Tomogra phy 07/25/2024 3:47 PM EDT Narrative 07/25/2024 4:34 PM EDT ? [place] [facility] ?[address] ?[place] [address] ? CT Scan Report ? Signed ? Patient: Sampson Louie,Arlette ?MR#: MM ?? [id number] ? : 1945 ?Acct:[id number] ? Age/Sex: 79 / F ?ADM Date: 07/25/24 ? Loc: HO.ED ? Attending Dr: ? Ordering Physician: Heydi Faustin NP ?? Date of Service: 07/25/24 ?? Procedure(s): CT head/brain wo IV con ?? Accession Number(s): [id number] ? cc: Nahomy Davies MD; Heydi Faustin NP ? Report Number: ?? [id number]: Total DLP = ??748.00 mGy-cm ?? EXAMINATION: [...] DD/ 1547 ? TD/TT: 07/25/24 1623 ? Drill Rig Operator: ? Procedure Note Donnimisha, Image - 07/25/[address] [place] [address] [address] Scan Report Signed Patient: Clarisa Dias#: [id number] : 7Acct:[id number] Age/Sex: 79 / FADM Date: 07/25/24 Loc: HO.ED Attending Dr: Ordering Physician: Heydi Faustin NP Date of Service: 07/25/24 Procedure(s): CT head/brain wo IV con Accession Number(s): [id number] cc: Nahomy Davies MD; Heydi Faustin NP Report Number: [id number]: Total DLP = 748.00 mGy-cm EXAMINATION: CT [...] 07/25/24 1631 DD/ 1547 TD/TT: 07/25/24 1623 Drill Rig Operator: [facility] External Provider IMG CT PROCEDURES Final Result * XR Chest 2 Views (07/25/2024 2:50 PM EDT) Anatomical Region Laterality Modality Chest Radiographic Sylvia ging 07/25/2024 2:50 PM EDT Narrative 07/25/2024 3:05 PM EDT ? [facility] ?[address] ?[place] [address] ?XRay Report ? Signed ? Patient: Sampson Louie,Arlette ?MR#: MM ?? [id number] ? : 1945 ?Acct:[id number] ? Age/Sex: 79 / F ?ADM Date: 04/16/25 ? Loc: HO.ED ? Attending Dr: ? Ordering Physician: Heydi Faustin NP ?? Date of Service: 07/25/24 ?? Procedure(s): XR chest 2V ?? Accession Number(s): [id number] ? cc: Nahomy Davies MD; Heydi Faustin [...] DD/ 1450 ? TD/TT: 07/25/24 1456 ? Drill Rig Operator: ? Procedure Note Donnimisha, Image - 07/25/2024 [place] [address] XRay Report Signed Patient: Gifty DiasR#: [id number] : 1945cct:[id number] Age/Sex: 79 / FADM Date: 07/25/24 Loc: HO.ED Attending Dr: Ordering Physician: Heydi Faustin NP Date of Service: 07/25/24 Procedure(s): XR chest 2V Accession Number(s): [id number] cc: Nahomy Davies MD; Heydi Faustin NP [...] 07/25/24 1502 DD/ 1450 TD/TT: 07/25/24 1456 Drill Rig Operator: [facility] External Provider IMG XR PROCEDURES Final Result * XR Elbow 1-2 Views Right (05/23/2024 6:45 PM EST) Anatomical Region Laterality Modality Upper Extremities, Elbow Right Radiogr aphic Imaging 05/23/2024 6:45 PM EST Narrative 05/23/2024 6:47 PM EST ? [facility] ?[address] ?[place] [address] ?XRay Report ? Signed ? Patient: Sampson Louie,Arlette ?MR#: MM ?? [id number] ? : 1945 ?Acct:[id number] ? Age/Sex: 79 / F ?ADM Date: 05/23/24 ? Loc: HO.ED ? Attending Dr: ? Ordering Physician: Jeannie Moulton ?? Date of Service: 05/23/24 ?? Procedure(s): XR elbow RT 2V ?? Accession Number(s): [id number] ? cc: Nahomy Davies MD; Jeannie Moulton [...] DD/ 1845 ? TD/TT: 05/23/24 1845 ? Drill Rig Operator: ? Procedure Note Ulysses, Image - 05/23/[address] [address] XRay Report Signed Patient: Gifty DiasR#: [id number] : 7Acct:[id number] Age/Sex: 79 / FADM Date: 05/23/24 Loc: HO.ED Attending Dr: Ordering Physician: Jeannie Moulton Date of Service: 05/23/24 Procedure(s): XR elbow RT 2V Accession Number(s): [id number] cc: Nahomy Davies MD; Jeannie Moulton CLINICAL [...] in OV> 05/23/241845 DD/ 44 TD/TT: 05/23/241844 Drill Rig Operator: [facility] External Provider IMG XR PROCEDURES Final Result * XR Knee 3 Views Right (05/23/2024 1:39 PM EST) Anatomical Region Laterality Modality Lower Extremities, Knee Right [facility]ogra [facility] 05/23/2024 1:39 PM EST Narrative 05/23/2024 2:12 PM EST ? [facility] ?[address] ?[place] [address] ?XRay Report ? Signed ? Patient: Sampson Louie,Arlette ?MR#: MM ?? [id number] ? : 1945 ?Acct:[id number] ? Age/Sex: 79 / F ?ADM Date: 02/12/25 ? Loc: HO.ED ? Attending Dr: ? Ordering Physician: Jeannie Moulton ?? Date of Service: 05/23/24 ?? Procedure(s): XR knee RT 3V ?? Accession Number(s): [id number] ? cc: Nahomy Davies MD; Jeannie Moulton [...] DD/ 1339 ? TD/TT: 05/23/24 1404 ? Drill Rig Operator: ? Procedure Note Donabbyter, Image - 05/23/[address] [address] XRay Report Signed Patient: Gifty DiasR#: [id number] : 7Acct:[id number] Age/Sex: 79 / FADM Date: 05/23/24 Loc: HO.ED Attending Dr: Ordering Physician: Jeannie Moulton Date of Service: 05/23/24 Procedure(s): XR knee RT 3V Accession Number(s): [id number] cc: Nahomy Davies MD; Jeannie Moulton EXAMINATION: [...] 05/23/24 1410 DD/ 1339 TD/TT: 05/23/24 1404 Drill Rig Operator: [facility] External Provider IMG XR PROCEDURES Final Result * XR Forearm 2 Views Right (05/23/2024 1:39 PM EST) Anatomical Region Laterality Modality Upper Extremities, Forearm Right Radio graphic Imaging 05/23/2024 1:39 PM EST Narrative 05/23/2024 2:11 PM EST ? [facility] ?[address] ?[place] [address] ?XRay Report ? Signed ? Patient: Arlette Dias ?MR#: MM ?? [id number] ? : 1945 ?Acct:[id number] ? Age/Sex: 79 / F ?ADM Date: 05/23/24 ? Loc: HO.ED ? Attending Dr: ? Ordering Physician: Jeannie Moulton ?? Date of Service: 05/23/24 ?? Procedure(s): XR forearm RT 2V ?? Accession Number(s): [id number] ? cc: Nahomy Davies MD; Jeannie Moulton [...] DD/ 1339 ? TD/TT: 05/23/24 1404 ? Drill Rig Operator: ? Procedure Note Donsherinterpreter, Image - 05/23/[address] [address] XRay Report Signed Patient: Clarisa Dias#: MM [id number] : 7Acct:[id number] Age/Sex: 79 / FADM Date: 05/23/24 Loc: .ED Attending Dr: Ordering Physician: Jeannie Moulton Date of Service: 05/23/24 Procedure(s): XR forearm RT 2V Accession Number(s): [id number] cc: Nahomy Davies MD; Jeannie Moulton EXAMINATION: [...] Xander Villegas MDin OV> 05/23/24 1408 DD/ TD/TT: 05/23/24 1404 Drill Rig Operator: us [facility] External Provider IMG XR PROCEDURES Final Result * XR Elbow 3+ Views Right (05/23/2024 1:39 PM EST) Anatomical Region Laterality Modality Upper Extremities, Elbow Right Radiogr aphic Imaging 05/23/2024 1:39 PM EST Narrative 05/23/2024 2:13 PM EST ? [facility] ?[address] ?[place] [address] ?XRay Report ? Signed ? Patient: Sampson Louie,Arlette ?MR#: MM ?? [id number] ? : 1945 ?Acct:[id number] ? Age/Sex: 79 / F ?ADM Date: 05/23/24 ? Loc: HO.ED ? Attending Dr: ? Ordering Physician: Jeannie Moulton ?? Date of Service: 05/23/24 ?? Procedure(s): XR elbow RT min 3V ?? Accession Number(s): [id number] ? cc: Nahomy Davies MD; Jeannie Moulton [...] DD/ 1339 ? TD/TT: 05/23/24 1404 ? Drill Rig Operator: ? Procedure Note Ulysses, Roger - 05/23/2024 [place] [address] [place] [address] XRay Report Signed Patient: Clarisa Dias#: MM [id number] : 7Acct:[id number] Age/Sex: 79 / FADM Date: 05/23/24 Loc: .ED Attending Dr: Ordering Physician: Jeannie Moulton Date of Service: 05/23/24 Procedure(s): XR elbow RT min 3V Accession Number(s): [id number] cc: Nahomy Davies MD; Jeannie Moulton EXAMINATION: [...] 05/23/24 1410 DD/ 1339 TD/TT: 05/23/24 1404 Drill Rig Operator: [facility] External Provider IMG XR PROCEDURES Final Result * (ABNORMAL) Albumin, Random Urine W/Creatinine (11/22/2023 12:40 PM EDT) Creatinine, Urine 66.52 mg/dL [facility] Microalbumin Urine 23.0 mg/L [facility] Microalbum Creatinine Ratio Ur 34.5(H) <30 ug/mg cr [facility] Comment:Albumin/Creatinine R atio Reference Ranges: Normal: < 30 ug/mg creatinine Microalbuminuria: 30 - 300 ug/mg creatinineClinical Albuminuria: > 300 ug/mg creatinine 11/22/2023 12:4 0 PM EDT 11/22/2023 5:12 PM EDT us Nahomy Kessler MD LAB URINE ORDERAB LES Final Result [facility] [address] [place] [phone] * (ABNORMAL) POCT HGB A1C (11/22/2023 10:45 AM EDT) Hemoglobin A1C 8.0(A) 4.0 - 6.0 % QC Media Lot # [id number] Lot# Expiration Date Blood 11/22/2023 10:4 5 AM EDT us Nahomy Kessler MD POINT OF CARE ADWOA T ENTER/EDIT ORDERABLES Final Result * (ABNORMAL) Lipid Panel, Standard (11/14/2023 10:00 AM EDT) Triglycerides 293(H) <150 mg/dL [facility] Comment:Desirable Triglyceri de: less than 150 mg/dLBorderline High Triglyceride 150-199 mg/dLHigh Triglyceride: 200-499 mg/dLVery High Triglyceride: greater than or equal to 5OO mg/dL Cholesterol 135 <200 mg/dL [facility] Comment:Desirable Cholestero l: less than 200 mg/dLBorderline High Cholesterol: 200-239 mg/dLHigh Cholesterol: greater than 239 mg/dL LDL Cholesterol Calculated 40 <100 mg/dL [facility] Comment:Desirable LDL: less than 100 mg/dLNear Optimal/Above Optimal LDL: 110- 129 mg/dLBorderline High LDL: 130-159 mg/dLHigh LDL: 160-189 mg/dLVery High LDL: greater than or equal to 190 mg/dL HDL Cholesterol 37(L) >40 mg/dL [facility] Comment:Desirable HDL: great er than 40 mg/dL Note: This HDL assay may give artificially low results in patients with liver disease. Blood Venous blood specimen / Unknown 11/14/2023 10:00 AM EDT 11/14/2023 11:16 AM EDT us Nahomy Kessler MD LAB BLOOD ORDERAB LES Final Result Performing Organization Address [facility]/ZIP Co de Phone Number [facility] [address] [place] [phone] * Hepatitis C Antibody with Reflex to HCV, RNA, Quantitative, Real-Time PCR (03/22/2023 8:23 AM EST) Hepatitis C Antibody Nonreactive Nonreactive [facility] Comment:Antibodies to HCV no t detected; does not exclude early acuteHCV infection. Blood Venous blood specimen / Unknown 03/22/2023 8:23 AM EST 03/22/2023 11:12 AM EST us Nahomy Kessler MD LAB BLOOD ORDERAB LES Final Result Performing Organization Address City/[facility] Co de Phone Number [facility] [address] [place] [address] [phone] from Last 3 Months or Most Recently Relevant to Health Maintenance Insurance [facility] [employer] (O D-SNP) RUY BARROS [id number] Care Teams Eggs Inspector Relationship Specialty Start Date End Date Nahomy Davies MD [address] [place] [phone] PCP - General Internal Medicine 01/13/23
--- OUTSIDE RECORDS SUMMARY | 2024-08-16 12:42 | XMS_ITS | Encounter Summary ---
Author Organization [employer] Address [address] [facility] 7t [place] [address] Care Team Providers Care Package Liner Name Role Phone Nahomy Davies MD Primary Care Pro vider Reason for Visit * Reason Comments Med Refill Encounter Details Date Type Department Care Team ([facility] st Contact Info) Description 01/22/2024 Refill [facility] [address] [place] [address] Nahomy Davies MD [address] [place] [address] Social History Tobacco Use Types Packs/Day Years [...] Description 08/28/2024 1:15 PM EDT Office Visit [facility] [address] [place] [phone] Nahomy Davies MD [address] [place] [phone] 09/26/2024 2:15 PM EDT Office Visit [address] [address] Nahomy Davies MD [address] [place] [phone] 10/26/2024 3:45 PM EDT Office Visit [address] [address] Karrie Carlisle MD [address] [place] [phone] documented as of this encounter Visit Diagnoses Not on filedocumented in this encounter Additional Health Concerns Assessment Noted Time PHQ-9 Depression Total Score: 0 04/23/19 23 9:18 AM EST documented as of this encounter Care Teams Package Liner Relationship Specialty Start Date End Date Nahomy Davies MD [address] [place] [phone] PCP - General Internal Medicine 01/13/23 documented as of this encounter
--- OUTSIDE RECORDS SUMMARY | 2024-08-16 12:42 | XMS_ITS | Encounter Summary ---
Author Organization [employer] Address [address] [place] [address] 7t [place] [address] Care Team Providers Care Assistant Executive Housekeeper Name Role Phone Nancy Larose SUSPENDER CUTTER Primary Care Provider [phone] Nahomy Davies MD Primary Care Pro vider Reason for Visit * Reason Comments Med Refill Encounter Details Date Type Department Care Team (Late st Contact Info) Description 11/10/2022 Refill [facility] [address] [place] [address] Nancy [address]ose [address] Dept [place] [address] Type 2 diabetes mellitus without complication, without long-term current use of insulin ([facility]); Sleep disturbance; Constipation, unspecified constipation type; Essential [...] Description 08/28/2024 1:15 PM EDT Office Visit [address] [address] Nahomy Davies MD [address] [place] [phone] 09/26/2024 2:15 PM EDT Office Visit [address] [address] Nahomy Davies MD [address] [place] [phone] 10/26/2024 3:45 PM EDT Office Visit [address] [address] Karrie Carlisle MD [address] [place] [address] [phone] documented as of this encounter Visit Diagnoses Diagnosis Type 2 diabetes mellitus without complication, without long-term current use of insulin ([facility]) Sleep disturbance Unspecified sleep disturbance Constipation, unspecified constipation type Essential hypertension Unspecified essential hypertension Gastroesophageal reflux disease without esophagitis Esophageal reflux Cobalamin deficiency Other B-complex deficiencies Osteopenia determined by x-ray documented in this encounter Additional Health Concerns Assessment Noted Time PHQ-9 Depression Total Score: 0 04/23/19 9:18 AM EST documented as of this encounter Care Teams Assistant Executive Housekeeper Relationship Specialty Start Date End Date Nancy Larose FNP PCP - General Family Medicine 12/08/21 01/12/23 Nahomy Davies MD [address] [place] [address] [phone] PCP - General Internal Medicine 01/13/23 documented as of this encounter
--- OUTSIDE RECORDS SUMMARY | 2024-08-16 12:42 | XMS_ITS | Encounter Summary ---
Author Organization [employer] Address 75 [facility] 7t [place] [address] Care Team Providers Care Kier Operator Name Role Phone Nahomy Davies MD Primary Care Pro vider Reason for Visit * Reason Comments Med Refill Encounter Details Date Type Department Care Team ([facility] st Contact Info) Description 02/28/2024 Refill [facility] MEDICINE [address] [place], [place] [phone] Irene Mei MD 230 [place], [place] [phone] Type 2 diabetes mellitus with other specified complication, with long-term current use of insulin ([facility]); Shortness of breath; Chronic neck pain Social [...] Upcoming Encounters Date Type Department Care Team ([facility] st Contact Info) Description 08/28/2024 1:15 PM EDT Office Visit [facility] MED[facility] [address] [place] [address] Nahomy Davies MD [address] [place] [address] 09/26/2024 2:15 PM EDT Office Visit [address] [address] Nahomy Davies MD [address] [place] [address] 10/26/2024 3:45 PM EDT Office Visit [address] [address] Karrie Carlisle MD [address] [place] [address] documented as of this encounter Visit Diagnoses Diagnosis Type 2 diabetes mellitus with other specified complication, with long-term current use of insulin ([facility]) Shortness of breath Chronic neck pain Cervicalgia documented in this encounter Additional Health Concerns Assessment Noted Time PHQ-9 Depression Total Score: 0 04/23/19 23 9:18 AM EST documented as of this encounter Care Teams Kier Operator Relationship Specialty Start Date End Date Nahomy Davies MD [address] [place] [address] PCP - General Internal Medicine 01/13/23 documented as of this encounter
--- OUTSIDE RECORDS SUMMARY | 2024-08-16 12:42 | XMS_ITS | Encounter Summary ---
Author Organization [employer] Address 75 [facility] 7t [place] [address] Care Team Providers Care Tire Repair Mechanic Name Role Phone Nahomy Davies MD Primary Care Pro vider Reason for Visit * Reason Comments Med Refill Encounter Details Date Type Department Care Team ([facility] st Contact Info) Description 02/23/[address] [facility] MEDICINE 230 [place] [address] Nahomy Davies MD 230 [place] [address] Essential hypertension; Type 2 diabetes mellitus without complication, without long-term current use of insulin ([facility]) Social History [...] 1:15 PM EDT Office Visit [facility] MEDICINE [address] [place] [address] Nahomy Davies MD [address] [place] [address] 09/26/2024 2:15 PM EDT Office Visit [address] [address] Nahomy Davies MD [address] [place] [address] 10/26/2024 3:45 PM EDT Office Visit [address] [address] Karrie Carlisle MD [address] [place] [address] documented as of this encounter Visit Diagnoses Diagnosis Essential hypertension Unspecified essential hypertension Type 2 diabetes mellitus without complication, without long-term current use of insulin ([facility]) documented in this encounter Additional Health Concerns Assessment Noted Time PHQ-9 Depression Total Score: 0 04/23/19 23 9:18 AM EST documented as of this encounter Care Teams Tire Repair Mechanic Relationship Specialty Start Date End Date Nahomy Davies MD [address] [place] [address] PCP - General Internal Medicine 01/13/23 documented as of this encounter
--- OUTSIDE RECORDS SUMMARY | 2024-08-16 12:42 | XMS_ITS | Encounter Summary ---
Author Organization [employer] Address 75 [facility] 7t [place] [address] Care Team Providers Care Last Scourer Name Role Phone Nahomy Davies MD Primary Care Pro vider Reason for Visit * Reason Comments Med Refill Encounter Details Date Type Department Care Team ([facility] st Contact Info) Description 10/12/2023 Refill [facility] MED & PEDS [address] [place], [place] [phone] Nahomy Davies MD 230 [place] [address] Iron deficiency anemia, unspecified iron deficiency anemia [...] Description 08/28/2024 1:15 PM EDT Office Visit [address] [address] Nahomy Davies MD [address] [place] [address] 09/26/2024 2:15 PM EDT Office Visit [address] [address] Nahomy Davies MD [address] [place] [address] 10/26/2024 3:45 PM EDT Office Visit [address] [address] Karrie Carlisle MD [address] [place] [address] documented as of this encounter Visit Diagnoses Diagnosis Iron deficiency anemia, unspecified iron deficiency anemia type documented in this encounter Additional Health Concerns Assessment Noted Time PHQ-9 Depression Total Score: 0 04/23/19 9:18 AM EST documented as of this encounter Care Teams Last Scourer Relationship Specialty Start Date End Date Nahomy Davies MD [address] [place] [address] PCP - General Internal Medicine 01/13/23 documented as of this encounter
--- OUTSIDE RECORDS SUMMARY | 2024-08-16 12:42 | XMS_ITS | Encounter Summary ---
Author Organization [employer] Address 75 [facility] 7t [place] [address] Care Team Providers Care Rail Splitter Name Role Phone Nancy Larose [facility] Primary Care Provider [phone]- [phone] Nahomy Davies MD Primary Care Pro vider Reason for Visit * Reason Comments Med Refill Encounter Details Date Type Department Care Team (Late Contact Info) Description 08/30/2022 Refill [facility] MEDICINE 230 [place], [place] [phone] Anamaria Herzog FNP [address] [place], [place] [phone] Type 2 diabetes mellitus with other specified complication, with long-term current use of insulin ([facility]) Social History Tobacco Use Types Packs/Day Years [...] Description 08/28/2024 1:15 PM EDT Office Visit [facility] MED[facility] 230 [place] [address] Nahomy Davies MD 230 [place], [place] [phone] 09/26/2024 2:15 PM EDT Office Visit [facility] MED[facility]INE [address] [place] [address] [phone] Nahomy Davies MD [address] [place], [place] [phone] 10/26/2024 3:45 PM EDT Office Visit [facility] MED[facility]INE [address] [place] [address] Karrie Carlisle MD 230 [place], [place] [phone] documented as of this encounter Visit Diagnoses Diagnosis Type 2 diabetes mellitus with other specified complication, with long-term current use of insulin ([facility]) documented in this encounter Additional Health Concerns Assessment Noted Time PHQ-9 Depression Total Score: 0 04/23/19 9:18 AM EST documented as of this encounter Care Teams Rail Splitter Relationship Specialty Start Date End Date Nancy Larose FNP PCP - General Family Medicine 12/08/21 01/12/23 Nahomy Davies MD [address] [place] [address] [phone] PCP - General Internal Medicine 01/13/23 documented as of this encounter
--- OUTSIDE RECORDS SUMMARY | 2024-08-16 12:42 | XMS_ITS | Encounter Summary ---
Author Organization [employer] Address 75 [facility] 7t [place] [address] Care Team Providers Care Instrument Calibrator Name Role Phone Nahomy Davies MD Primary Care Pro vider Reason for Visit * Reason Comments Med Refill Encounter Details Date Type Department Care Team ([facility] st Contact Info) Description 05/16/2024 Refill [facility] MED & PEDS [address] [place], [place] [phone] Nahomy Davies MD 230 [place] [address] Social History Tobacco Use Types Packs/Day Years [...] Description 08/28/2024 1:15 PM EDT Office Visit [facility] MEDICINE [address] [place] [address] Nahomy Davies MD [address] [place] [address] 09/26/2024 2:15 PM EDT Office Visit [address] [address] Nahomy Davies MD [address] [place] [address] 10/26/2024 3:45 PM EDT Office Visit [address] [address] Karrie Carlisle MD [address] [place] [address] documented as of this encounter Visit Diagnoses Not on filedocumented in this encounter Additional Health Concerns Assessment Noted Time PHQ-9 Depression Total Score: 0 04/23/19 23 9:18 AM EST documented as of this encounter Care Teams Instrument Calibrator Relationship Specialty Start Date End Date Nahomy Davies MD [address] [place] [address] PCP - General Internal Medicine 01/13/23 documented as of this encounter
--- OUTSIDE RECORDS SUMMARY | 2024-08-16 12:42 | XMS_ITS | Encounter Summary ---
Author Organization [employer] Address 75 [facility] 7t [place] [address] Care Team Providers Care Associate Agent Insurance Sales Name Role Phone Nahomy Davies MD Primary Care Pro vider Reason for Visit * Reason Comments Med Refill Encounter Details Date Type Department Care Team ([facility] st Contact Info) Description 10/18/2023 Refill [facility] MEDICINE 230 [place] [address] Nahomy Davies MD 230 [place] [address] Social History Tobacco Use Types Packs/Day Years [...] Description 08/28/2024 1:15 PM EDT Office Visit [facility] MED[facility]INE [address] [place] [address] Nahomy Davies MD [address] [place] [address] 09/26/2024 2:15 PM EDT Office Visit [address] [address] Nahomy Davies MD [address] [place] [address] 10/26/2024 3:45 PM EDT Office Visit [address] [address] Karrie Carlisle MD [address] [place] [address] documented as of this encounter Visit Diagnoses Not on filedocumented in this encounter Additional Health Concerns Assessment Noted Time PHQ-9 Depression Total Score: 0 04/23/19 9:18 AM EST documented as of this encounter Care Teams Associate Agent Insurance Sales Relationship Specialty Start Date End Date Nahomy Davies MD [address] [place] [address] PCP - General Internal Medicine 01/13/23 documented as of this encounter
--- OUTSIDE RECORDS SUMMARY | 2024-08-16 12:42 | XMS_ITS | Encounter Summary ---
Author Organization [employer] Address 75 [facility] 7t [place] [address] Care Team Providers Care Textile Designs Sales Representative Name Role Phone Nahomy Davies MD Primary Care Pro vider Reason for Visit * Reason Comments Med Refill Encounter Details Date Type Department Care Team ([facility] st Contact Info) Description 01/30/2024 Refill [facility] MEDICINE 230 [place], [place] [phone] Nahomy Davies MD 230 [place] [address] Iron deficiency anemia, unspecified iron deficiency anemia [...] Upcoming Encounters Date Type Department Care Team ([facility] st Contact Info) Description 08/28/2024 1:15 PM EDT Office Visit [address] [address] Nahomy Davies MD [address] [place] [address] 09/26/2024 2:15 PM EDT Office Visit [address] [address] Nahomy Davies MD [address] [place] [address] 10/26/2024 3:45 PM EDT Office Visit [address] [address] Karrie Carlisle MD [address] [place] [address] 19666 documented as of this encounter Visit Diagnoses Diagnosis Iron deficiency anemia, unspecified iron deficiency anemia type Mixed hyperlipidemia documented in this encounter Additional Health Concerns Assessment Noted Time PHQ-9 Depression Total Score: 0 04/23/19 23 9:18 AM EST documented as of this encounter Care Teams Textile Designs Sales Representative Relationship Specialty Start Date End Date Nahomy Davies MD [address] [place] [address] PCP - General Internal Medicine 01/13/23 documented as of this encounter
--- OUTSIDE RECORDS SUMMARY | 2024-08-16 12:43 | XMS_ITS | Encounter Summary ---
Author Organization [employer] Address 75 [facility] [address] 7t [place] [address] Care Team Providers Care Railroad Signal And Switch Operator Name Role Phone Nahomy Davies MD Primary Care Pro vider Reason for Visit * Reason Comments Med Refill Encounter Details Date Type Department Care Team ([facility] st Contact Info) Description 07/23/2023 Refill [facility] CHC MED & PEDS [address] [place], [place] [phone] Suyapa Doyle MD 230 [place] [address] Shortness of breath Social History Tobacco Use [...] Description 08/28/2024 1:15 PM EDT Office Visit [facility] MEDICINE [address] [place] [address] Nahomy Davies MD [address] [place] [address] 09/26/2024 2:15 PM EDT Office Visit [address] [address] Nahomy Davies MD [address] [place] [address] 10/26/2024 3:45 PM EDT Office Visit [address] [address] Karrie Carlisle MD [address] [place] [address] documented as of this encounter Visit Diagnoses Diagnosis Shortness of breath documented in this encounter Additional Health Concerns Assessment Noted Time PHQ-9 Depression Total Score: 0 04/23/19 9:18 AM EST documented as of this encounter Care Teams Railroad Signal And Switch Operator Relationship Specialty Start Date End Date Nahomy Davies MD [address] [place] [phone] PCP - General Internal Medicine 01/13/23 documented as of this encounter
--- OUTSIDE RECORDS SUMMARY | 2024-08-16 12:43 | XMS_ITS | Encounter Summary ---
Author Organization [employer] Address 75 [facility] 7t [place] [address] Care Team Providers Care Tissue Inserter Name Role Phone Nahomy Davies MD Primary Care Pro vider Reason for Visit * Reason Comments Med Refill Encounter Details Date Type Department Care Team ([facility] st Contact Info) Description 06/06/2023 Refill [facility] MEDICINE 230 [place] [address] Nahomy Davies MD [address] [place] [address] Social History Tobacco Use Types Packs/Day Years [...] 1:15 PM EDT Office Visit [facility] MEDICINE [address] [place] [address] Nahomy Davies MD [address] [place] [address] 09/26/2024 2:15 PM EDT Office Visit [address] [address] Nahomy Davies MD [address] [place] [address] 10/26/2024 3:45 PM EDT Office Visit [address] [address] Karrie Carlisle MD [address] [place] [address] documented as of this encounter Visit Diagnoses Not on filedocumented in this encounter Additional Health Concerns Assessment Noted Time PHQ-9 Depression Total Score: 0 04/23/19 9:18 AM EST documented as of this encounter Care Teams Tissue Inserter Relationship Specialty Start Date End Date Nahomy Davies MD [address] [place] [address] PCP - General Internal Medicine 01/13/23 documented as of this encounter
--- OUTSIDE RECORDS SUMMARY | 2024-08-16 12:43 | XMS_ITS | Encounter Summary ---
Author Organization [employer] Address 75 [facility] 7t [place] [address] Care Team Providers Care Irrigation Flume Layer Name Role Phone Nahomy Davies MD Primary Care Pro vider Reason for Visit * Reason Comments Med Refill Encounter Details Date Type Department Care Team ([facility] st Contact Info) Description 07/04/2023 Refill [facility] MEDICINE 230 [place] [address] Nahomy Davies MD 230 [place] [address] Social History Tobacco Use Types Packs/Day Years [...] Description 08/28/2024 1:15 PM EDT Office Visit [facility] MEDICINE [address] [place] [address] Nahomy Davies MD [address] [place] [address] 09/26/2024 2:15 PM EDT Office Visit [address] [address] Nahomy Davies MD [address] [place] [address] 10/26/2024 3:45 PM EDT Office Visit [address] [address] Karrie Carlisle MD [address] [place] [address] documented as of this encounter Visit Diagnoses Not on filedocumented in this encounter Additional Health Concerns Assessment Noted Time PHQ-9 Depression Total Score: 0 04/23/19 9:18 AM EST documented as of this encounter Care Teams Irrigation Flume Layer Relationship Specialty Start Date End Date Nahomy Davies MD [address] [place] [address] PCP - General Internal Medicine 01/13/23 documented as of this encounter
--- OUTSIDE RECORDS SUMMARY | 2024-08-16 12:43 | XMS_ITS | Encounter Summary ---
Author Organization [employer] Address 75 [facility] 7t [place] [address] Care Team Providers Care Workers Compensation Claims Adjuster Name Role Phone Nahomy Davies MD Primary Care Pro vider Reason for Visit * Reason Comments Med Refill Encounter Details Date Type Department Care Team ([facility] st Contact Info) Description 06/05/2023 Refill [facility] MEDICINE 230 [place] [address] Nahomy Davies MD 230 [place] [address] Social History Tobacco Use Types Packs/Day Years [...] 1:15 PM EDT Office Visit [facility] MEDICINE [address] [place] [address] Nahomy Davies MD [address] [place] [address] 09/26/2024 2:15 PM EDT Office Visit [address] [address] Nahomy Davies MD [address] [place] [address] 10/26/2024 3:45 PM EDT Office Visit [address] [address] Karrie Carlisle MD [address] [place] [address] documented as of this encounter Visit Diagnoses Not on filedocumented in this encounter Additional Health Concerns Assessment Noted Time PHQ-9 Depression Total Score: 0 04/23/19 9:18 AM EST documented as of this encounter Care Teams Workers Compensation Claims Adjuster Relationship Specialty Start Date End Date Nahomy Davies MD [address] [place] [address] PCP - General Internal Medicine 01/13/23 documented as of this encounter
--- OUTSIDE RECORDS SUMMARY | 2024-08-16 12:43 | XMS_ITS | Encounter Summary ---
Author Organization [employer] Address 75 [facility] 7t [place] [address] Care Team Providers Care Electronics Technology Instructor Name Role Phone Nahomy Davies MD Primary Care Pro vider Reason for Visit * Reason Onset Date Comments Medication Question 03/25/2023 Encounter Details Date Type Department Care Team ([facility] st Contact Info) Description 03/25/2023 Telephone [facility] MEDICINE 230 [place] [address] Nahomy Davies MD 230 [place] [address] Medication Question Social History Tobacco Use Types [...] for FreeStyle lancets with clarifications on directions. [phone] ext [phone] documented in this encounter Plan of Treatment Upcoming Encounters Date Type Department Care Team (Late st Contact Info) Description 08/28/2024 1:15 PM EDT Office Visit [facility] MEDICINE [address] [place] [address] Nahomy Davies MD [address] [place] [address] 09/26/2024 2:15 PM EDT Office Visit [address] [address] Nahomy Davies MD [address] [place] [address] 10/26/2024 3:45 PM EDT Office Visit [address] [address] Karrie Carlisle MD [address] [place] [address] documented as of this encounter Visit Diagnoses Not on filedocumented in this encounter Additional Health Concerns Assessment Noted Time PHQ-9 Depression Total Score: 0 04/23/19 9:18 AM EST documented as of this encounter Care Teams Electronics Technology Instructor Relationship Specialty Start Date End Date Nahomy Davies MD [address] [place] [address] PCP - General Internal Medicine 01/13/23 documented as of this encounter
--- OUTSIDE RECORDS SUMMARY | 2024-08-16 12:43 | XMS_ITS | Encounter Summary ---
Author Organization [employer] Address 75 [facility] 7t [place] [address] Care Team Providers Care Tunneling Machine Operator Name Role Phone Nahomy Davies MD Primary Care Pro vider Reason for Visit * Reason Comments Med Refill Encounter Details Date Type Department Care Team ([facility] st Contact Info) Description 06/29/2023 Refill [facility] MEDICINE 230 [place] [address] Nahomy Davies MD 230 [place] [address] Social History Tobacco Use Types Packs/Day Years [...] 1:15 PM EDT Office Visit [facility] MEDICINE [address] [place] [address] Nahomy Davies MD [address] [place] [address] 09/26/2024 2:15 PM EDT Office Visit [address] [address] Nahomy Davies MD [address] [place] [address] 10/26/2024 3:45 PM EDT Office Visit [address] [address] Karrie Carlisle MD [address] [place] [address] documented as of this encounter Visit Diagnoses Not on filedocumented in this encounter Additional Health Concerns Assessment Noted Time PHQ-9 Depression Total Score: 0 04/23/19 9:18 AM EST documented as of this encounter Care Teams Tunneling Machine Operator Relationship Specialty Start Date End Date Nahomy Davies MD [address] [place] [address] PCP - General Internal Medicine 01/13/23 documented as of this encounter
--- OUTSIDE RECORDS SUMMARY | 2024-08-16 12:43 | XMS_ITS | Encounter Summary ---
Author Organization [employer] Address 75 [facility] 7t [place] [address] Care Team Providers Care Console Operator Name Role Phone Nahomy Davies MD Primary Care Pro vider Reason for Visit * Reason Comments Med Refill Encounter Details Date Type Department Care Team ([facility] st Contact Info) Description 06/20/2023 Refill [facility] MEDICINE 230 [place] [address] Nahomy Davies MD [address] [place] [address] Social History Tobacco Use Types Packs/Day Years [...] Description 08/28/2024 1:15 PM EDT Office Visit [facility] MEDICINE [address] [place] [address] Nahomy Davies MD [address] [place] [address] 09/26/2024 2:15 PM EDT Office Visit [address] [address] Nahomy Davies MD [address] [place] [address] 10/26/2024 3:45 PM EDT Office Visit [address] [address] Karrie Carlisle MD [address] [place] [address] documented as of this encounter Visit Diagnoses Not on filedocumented in this encounter Additional Health Concerns Assessment Noted Time PHQ-9 Depression Total Score: 0 04/23/19 9:18 AM EST documented as of this encounter Care Teams Console Operator Relationship Specialty Start Date End Date Nahomy Davies MD [address] [place] [address] PCP - General Internal Medicine 01/13/23 documented as of this encounter
--- OUTSIDE RECORDS SUMMARY | 2024-08-16 12:43 | XMS_ITS | Encounter Summary ---
Author Organization [employer] [facility] [employer] Address 75 [facility] 7t [place] [address] Care Team Providers Care Orthopedics Pediatric Physician Name Role Phone Nahomy Davies MD Primary Care Pro vider Reason for Visit * Reason Comments Med Refill Encounter Details Date Type Department Care Team ([facility] st Contact Info) Description 06/23/2023 Refill [facility] [address] [place] [address] Nahomy Davies MD [address] [place] [address] Social History Tobacco Use Types Packs/Day Years [...] 08/28/2024 1:15 PM EDT Office Visit [facility] [address] [place] [address] Nahomy Davies MD [address] [place] [phone] 09/26/2024 2:15 PM EDT Office Visit [address] [address] Nahomy Davies MD [address] [place] [phone] 10/26/2024 3:45 PM EDT Office Visit [address] [address] Karrie Carlisle MD [address] [place] [address] documented as of this encounter Visit Diagnoses Not on filedocumented in this encounter Additional Health Concerns Assessment Noted Time PHQ-9 Depression Total Score: 0 04/23/19 9:18 AM EST documented as of this encounter Care Teams Orthopedics Pediatric Physician Relationship Specialty Start Date End Date Nahomy Davies MD [address] [place] [phone] PCP - General Internal Medicine 01/13/23 documented as of this encounter
--- OUTSIDE RECORDS SUMMARY | 2024-08-16 12:43 | XMS_ITS | Encounter Summary ---
Author Organization [employer] Address 75 [facility] 7t [place] [address] Care Team Providers Care Lathe Set Up Operator Name Role Phone Nahomy Davies MD Primary Care Pro vider Reason for Visit * Reason Comments Med Refill Encounter Details Date Type Department Care Team ([facility] st Contact Info) Description 07/23/2023 Refill [facility]INE [address] [place] [address] Nahomy Davies MD [address] [place] [address] Iron deficiency anemia, unspecified iron deficiency anemia type; Type 2 diabetes mellitus without complication, without long-term current use of insulin ([facility]) Social History Tobacco Use Types Packs/Day [...] 08/28/2024 1:15 PM EDT Office Visit [address] [address] Nahomy Davies MD [address] [place] [phone] 09/26/2024 2:15 PM EDT Office Visit [address] [address] Nahomy Davies MD [address] [place] [phone] 10/26/2024 3:45 PM EDT Office Visit [address] [address] Karrie Carlisle MD [address] [place] [phone] documented as of this encounter Visit Diagnoses Diagnosis Iron deficiency anemia, unspecified iron deficiency anemia type Type 2 diabetes mellitus without complication, without long-term current use of insulin ([facility]) documented in this encounter Additional Health Concerns Assessment Noted Time PHQ-9 Depression Total Score: 0 04/23/19 23 9:18 AM EST documented as of this encounter Care Teams Lathe Set Up Operator Relationship Specialty Start Date End Date Nahomy Davies MD [address] [place] [address] [place] [phone] PCP - General Internal Medicine 01/13/23 documented as of this encounter
--- OUTSIDE RECORDS SUMMARY | 2024-08-16 12:43 | XMS_ITS | Encounter Summary ---
Author Organization [employer] Address 75 [facility] 7t [place] [address] Care Team Providers Care Media Executive Name Role Phone Nahomy Davies MD Primary Care Pro vider Reason for Visit * Reason Comments Med Refill Encounter Details Date Type Department Care Team ([facility] st Contact Info) Description 06/13/2023 Refill [facility] MEDICINE [address] [place] [address] Nahomy Davies MD [address] [place] [address] Social History Tobacco Use Types Packs/Day Years [...] Description 08/28/2024 1:15 PM EDT Office Visit [facility] [address] [place] [address] Nahomy Davies MD [address] [place] [address] 09/26/2024 2:15 PM EDT Office Visit [address] [address] Nahomy Davies MD [address] [place] [address] 10/26/2024 3:45 PM EDT Office Visit [address] [address] Karrie Carlisle MD [address] [place] [address] documented as of this encounter Visit Diagnoses Not on filedocumented in this encounter Additional Health Concerns Assessment Noted Time PHQ-9 Depression Total Score: 0 04/23/19 9:18 AM EST documented as of this encounter Care Teams Media Executive Relationship Specialty Start Date End Date Nahomy Davies MD [address] [place] [phone] PCP - General Internal Medicine 01/13/23 documented as of this encounter
--- OUTSIDE RECORDS SUMMARY | 2024-08-16 12:43 | XMS_ITS | Encounter Summary ---
Author Organization [employer] Address 75 [facility] 7t [place] [address] Care Team Providers Care Lens Inserter Name Role Phone Nahomy Davies MD Primary Care Pro vider Reason for Visit * Reason Comments Med Refill Encounter Details Date Type Department Care Team ([facility] st Contact Info) Description 01/31/2023 Refill [facility] [address] [place] [address] Nancy Larose FNP [address] [facility] [place] [address] Social History Tobacco Use Types Packs/Day Years [...] Description 08/28/2024 1:15 PM EDT Office Visit [facility] [address] [place] [address] Nahomy Davies MD [address] [place] [address] 09/26/2024 2:15 PM EDT Office Visit [address] [address] Nahomy Davies MD [address] [place] [address] 10/26/2024 3:45 PM EDT Office Visit [address] [address] Karrie Carlisle MD [address] [place] [address] documented as of this encounter Visit Diagnoses Not on filedocumented in this encounter Additional Health Concerns Assessment Noted Time PHQ-9 Depression Total Score: 0 04/23/19 9:18 AM EST documented as of this encounter Care Teams Lens Inserter Relationship Specialty Start Date End Date Nahomy Davies MD [address] [place] [phone] PCP - General Internal Medicine 01/13/23 documented as of this encounter
== END 2024-08-16 11:14 | disposition home or self-care (01) ==
LOC: HO.MAMMO 11:13
PROVIDERS: PCP Student in an Organized Health Care Education/Training Program; Visit Provider Student in an Organized Health Care Education/Training Program
DX: Z12.31 Encounter for screening mammogram for malignant neoplasm of breast (principal)
CPT/HCPCS: 77063; 77067

== ENCOUNTER → 2024-08-16 11:15 | Outpatient (BNV) | payer OTHER, SELFPAY | PROVIDERS: PCP Student in an Organized Health Care Education/Training Program; Visit Provider Internal Medicine | DX: Z12.31 Encounter for screening mammogram for malignant neoplasm of breast (principal) | CPT/HCPCS: 77063; 77067 ==

== ENCOUNTER 2024-09-05 10:28 | Outpatient (AMB) | payer OTHER, SELFPAY ==
--- NOTE | 2024-09-05 10:29 | A.OFFVIS_ITS ---
Vital Signs 09/05/24 10:48 Height 5 ft 3 in Weight 210 lb BMI 37.2 BP 138/58 L Blood Pressure Location Rt brachial Position Sitting Pulse 68 Pulse Source Pulse Oximeter Pulse Oximetry (%) 95 Oxygen Delivery Method Room Air Intake Visit Reasons: 10 wks f/u Gerd, Discuss upper endo Intake Note: ESTABLISHED PATIENT for mgmt of GERD + Constipation. Discuss EGD. Chief Complaint; Pt denies any GI sx or concerns at this time. Pt comments that sx are well controlled. Executive Vice President Of Sales Required: Yes Executive Vice President Of Sales Services: Executive Vice President Of Sales Offered & Declined Accompanied by: Daughter Allergies lisinopril Allergy (Intermediate, Verified 09/05/24 10:29) itching Penicillins Allergy (Intermediate, Verified 09/05/24 10:29) rash/hives black pepper Allergy (Mild, Verified 09/05/24 10:29) Unknown fluticasone [From Flonase] Allergy (Mild, Verified 09/05/24 10:29) Unknown HPI HPI 10 wks f/u Gerd, Discuss upper endo: Details: LAST VISIT Tubular adenoma of colon Chronic constipation GERD (gastroesophageal reflux disease) Benign gastric polyp Plan Continue omeprazole every morning half an hour before breakfast. Avoid dietary t riggers and late night snacking. Staying upright for minimum 3 hours after meals discussed with patient. Continue senna. Increase fluid intake and activity to promote better bowel motility. Patient will return in 10 weeks to discuss going for upper endoscopy. She will call our office if she will have any GI concerning symptoms. Patient is agreeable to current plan of care and verbalizes understand ing of instructions. She was given the opportunity to ask questions and all questions answered. ? Thank you for allowing me to participate in her care Medications Refilled sennosides (Natural Senna Laxative) 17.2 mg (2 x 8.6 mg) PO BEDTIME 180 tabs 3RF constipation K59.00 omeprazole 20 mg PO DAILY 90 caps 2RF K21.9 * TODAY'S VISIT Patient is here today for follow-up. Patient reports that she has been doing well. Symptoms of acid reflux are suppressed with omeprazole. However patient still reports trouble swallowing. Patient feels difficulty to swallow mainly in her throat. Patient denies any choking episodes. Patient reports that she is moving her bowels better now that she started taking senna. Patient denies melena, hematochezia, unintentional weight loss or ribbon like stools. Patient is scheduled for upper endoscopy this Tuesday. [facility] Medical History Tubular adenoma of colon Chronic restrictive lung disease Insomnia On beta anish at home History of COVID-19 Asthma Chronic constipation Broken arm CAD (coronary artery disease) HTN (hypertension) Hyperlipidemia Diabetes mellitus Dyspnea Dysphagia Non-toxic multinodular goiter Hypothyroidism Surgical History H/O thyroidectomy History of surgery Hx of elbow surgery History of surgery on arm Hx of cholecystectomy History of partial hysterectomy Hx of cataract surgery History of tubal ligation Hx of tonsillectomy History of carpal tunnel release Hx of colonoscopy Family History Father Throat cancer Heart disease CVD (cardiovascular disease) Mother Stomach cancer Type 2 diabetes mellitus Arthritis of knee Hypertension Social History Household Members: None Household Members Other:: self Housing: Apartment Are you a primary school childcare attendant to a significant other at home: No Do you presently have visiting nurse or other home services: No Alcohol intake: never Patient Tobacco Use Status: Never used Tobacco Second Hand Smoke Exposure: No service: No Current occupational status: retired Current occupation: right handed Review of Systems Const Denies weight gain and Denies weight loss ENT Reports no additional complaints, Denies dysphagia and Denies odynophagia Card Reports no additional complaints Resp Reports no additional complaints GI Denies abdominal pain, Denies belching, Denies melena, Denies bloating, Denies change in bowel habits, Denies dysphagia, Denies excessive flatus, Denies dyspepsia, Denies heartburn, Denies diarrhea, Denies loose stools, Denies nausea, Denies odynophagia and Denies vomiting Musc Reports no additional complaints Neuro Reports no additional complaints Psych Reports no additional complaints Endo Reports no additional complaints Physical Exam Vital Signs: Last Vital Signs Pulse 68 09/05/24 10:48 BP 138/58 L 09/05/24 10:48 Pulse Ox 95 09/05/24 10:48 Oxygen Delivery Method Room Air 09/05/24 10:48 BMI result Body Mass Index 37.2 Const General: healthy appearing and no acute distress Nutritional Appearance: obese Orientation/consciousness: patient oriented x3 Resp Effort & Inspection: normal respiratory effort, able to speak in complete sentences, no tracheal deviation and symmetric chest movement Auscultation: clear to auscultation bilaterally Cardio Rate: regular rate GI Inspection: Yes normal to inspection, No distended and Yes obesity Palpation (GI): Soft to palpation, not firm, nontender and No hepatosplenomegaly present Auscultation: normal bowel sounds General: Yes no CVA tenderness Back/Spine/Pelvis Back: no CVA tenderness Skin General skin exam: elasticity normal, turgor normal and dry skin Neuro General: patient oriented x3 Psych Appearance: grossly normal Mental Status: mental status grossly normal Assessment & Plan Assessment & Plan (1) Tubular adenoma of colon: Code(s): D12.6 - Benign neoplasm of colon, unspecified Category: Medical (2) Chronic constipation: Code(s): K59.09 - Other constipation Category: Medical (3) GERD (gastroesophageal reflux disease): Code(s): K21.9 - Gastro-esophageal reflux disease without esophagitis Qualifiers: Esophagitis presence: esophagitis presence not specified Qualified Code(s): K21.9 - Gastro-esophageal reflux disease without esophagitis (4) Benign gastric polyp: Code(s): K31.7 - Polyp of stomach and duodenum (5) Dysphagia: Code(s): R13.10 - Dysphagia, unspecified Qualifiers: Dysphagia type: oropharyngeal phase Qualified Code(s): R13.12 - Dysphagia, oropharyngeal phase Plan Patient will continue taking omeprazole daily. Avoid dietary triggers and late night snacking. What to expect before during and after procedure discussed with patient. Continue taking Senokot daily.. Patient will be seen after the procedure, sooner on as needed basis. She is agreeable to this plan and verbalizes understanding of instructions. She was given the opportunity to ask questions and all questions answered. Thank you for allowing me to participate in her care Coding Level of Care Code Est Pt Level 3 (58292) Diagnoses Tubular adenoma of colon D12.6 Chronic constipation K59.09 Gastroesophageal reflux disease, unspecified whether esophagitis present K21.9 Esophagitis presence: esophagitis presence not specified Benign gastric polyp K31.7 Oropharyngeal dysphagia R13.12 Dysphagia type: oropharyngeal phase Time Spent (min) 25 Comment 15 minutes spent with patient and additional 10 minutes spent reviewing her records
[2024-09-05 10:48] VITALS: BP 138/58; PULSE 68; O2SAT 95; BMI 37.2
--- OUTSIDE RECORDS SUMMARY | 2024-09-05 11:28 | XMS_ITS | Encounter Summary ---
Author Organization [employer] Address [address] [facility] 7t [place] [address] Care Team Providers Care Rail Gang Supervisor Name Role Phone Nahomy Davies MD Primary Care Pro vider Reason for Visit * Reason Comments Med Refill Encounter Details Date Type Department Care Team ([facility] st Contact Info) Description 11/11/2023 Refill [facility] MEDICINE [address] [place] [address] Nahomy Davies MD [address] [place] [address] Type 2 diabetes mellitus without complication, without long-term current use of insulin ([facility]) Social History Tobacco [...] Care Team (Late st Contact Info) Description 09/26/2024 2:15 PM EDT Office Visit [facility] [address] [place] [address] Nahomy Davies MD [address] [place] [address] 10/26/2024 3:45 PM EDT Office Visit [facility] [address] [place] [address] Karrie Carlisle MD [address] [place] [phone] documented as of this encounter Visit Diagnoses Diagnosis Type 2 diabetes mellitus without complication, without long-term current use of insulin ([facility]) documented in this encounter Additional Health Concerns Assessment Noted Time PHQ-9 Depression Total Score: 0 04/23/19 23 9:18 AM EST documented as of this encounter Care Teams Rail Gang Supervisor Relationship Specialty Start Date End Date Nahomy Davies MD [address] [place] [address] [phone] PCP - General Internal Medicine 01/13/23 documented as of this encounter
== END 2024-09-05 10:55 | disposition home or self-care (01) ==
LOC: HO.HGI 10:29
PROVIDERS: PCP Student in an Organized Health Care Education/Training Program; Visit Provider Nurse Practitioner Family
DX: D12.6 Benign neoplasm of colon, unspecified (principal); K59.09 Other constipation; K21.9 Gastro-esophageal reflux disease without esophagitis; K31.7 Polyp of stomach and duodenum; R13.12 Dysphagia, oropharyngeal phase
CPT/HCPCS: 99213

== ENCOUNTER → 2024-09-05 10:28 | Outpatient (BNVA) | payer OTHER, SELFPAY | PROVIDERS: PCP Student in an Organized Health Care Education/Training Program; Visit Provider Nurse Practitioner Family | DX: K59.09 Other constipation (principal); D12.6 Benign neoplasm of colon, unspecified; K21.9 Gastro-esophageal reflux disease without esophagitis; K31.7 Polyp of stomach and duodenum; R13.12 Dysphagia, oropharyngeal phase | CPT/HCPCS: 99212 ==

== ENCOUNTER 2024-09-07 09:13 | Day surgery (SDC) | payer OTHER, SELFPAY ==
--- OUTSIDE RECORDS SUMMARY | 2024-07-31 12:40 | XMS_ITS | Encounter Summary ---
Author Organization [employer] Address 75 [facility] 7t [place] [address] Care Team Providers Care Systems Integration Manager Name Role Phone Nahomy Davies MD Primary Care Pro vider Reason for Visit * Reason Comments Med Refill Encounter Details Date Type Department Care Team ([facility] st Contact Info) Description 11/07/2023 Refill [facility] MEDICINE [address] [place] [address] Nahomy Davies MD 230 [place] [address] Type 2 diabetes mellitus without complication, without long-term current use of insulin ([facility]) Social History Tobacco Use Types Packs/Day Years [...] Description 08/06/2024 11:30 AM EDT Clinical Support [address] [address] 08/28/2024 1:15 PM EDT Office Visit [address] [address] Nahomy Davies MD [address] [place] [address] 09/26/2024 2:15 PM EDT Office Visit [address] [address] Nahomy Davies MD [address] [place] [address] documented as of this encounter Visit Diagnoses Diagnosis Type 2 diabetes mellitus without complication, without long-term current use of insulin ([facility]) documented in this encounter Additional Health Concerns Assessment Noted Time PHQ-9 Depression Total Score: 0 04/23/19 9:18 AM EST documented as of this encounter Care Teams Systems Integration Manager Relationship Specialty Start Date End Date Nahomy Davies MD [address] [place] [address] PCP - General Internal Medicine 01/13/23 documented as of this encounter
--- OUTSIDE RECORDS SUMMARY | 2024-07-31 12:40 | XMS_ITS | Encounter Summary ---
Author Organization [facility] [facility] Address [address] [place] [address] 7t [place] [address] Care Team Providers Care Photo Booth Operator Name Role Phone Nancy Larose CONTACT CENTER ENGINEER Primary Care Provider +1- [phone] Nahomy Davies MD Primary Care Pro vider Encounter Details Date Type Department Care Team (Late st Contact Info) Description 03/30/2022 Orders Only [facility] [address] [place] [address] [phone] Kary Lux LPN Social History Tobacco Use [...] Description 08/06/2024 11:30 AM EDT Clinical Support [facility] MEDIC[facility] [address] [place] [address] [phone] 08/28/2024 1:15 PM EDT Office Visit [facility] [address] [place] [address] [phone] Nahomy Davies MD [address] [place] [address] 09/26/2024 2:15 PM EDT Office Visit [address] [phone] Nahomy Davies MD 230 [place] [address] documented as of this encounter Visit Diagnoses Not on filedocumented in this encounter Care Teams Photo Booth Operator Relationship Specialty Start Date End Date Nancy Larose FNP PCP - General Family Medicine 12/08/21 01/12/23 Nahomy Davies MD 230 [place] [address] PCP - General Internal Medicine 01/13/23 documented as of this encounter
--- OUTSIDE RECORDS SUMMARY | 2024-07-31 12:40 | XMS_ITS | Encounter Summary ---
Author Organization [employer] Address 75 [facility] 7t [place] [address] Care Team Providers Care Jackhammer Splitter Operator Name Role Phone Nahomy Davies MD Primary Care Pro vider Reason for Visit * Reason Comments Med Refill Encounter Details Date Type Department Care Team ([facility] st Contact Info) Description 12/02/2023 Refill [facility] MED & PEDS [address] [place], [place] [phone] Nahomy Davies MD 230 [place] [address] Social History Tobacco Use Types Packs/Day Years [...] 08/06/2024 11:30 AM EDT Clinical Support [address] [address] 08/28/2024 1:15 PM EDT Office Visit [address] [address] Nahomy Davies MD [address] [place] [address] 09/26/2024 2:15 PM EDT Office Visit [address] [address] Nahomy Daives MD [address] [place] [address] documented as of this encounter Visit Diagnoses Not on filedocumented in this encounter Additional Health Concerns Assessment Noted Time PHQ-9 Depression Total Score: 0 04/23/19 9:18 AM EST documented as of this encounter Care Teams Jackhammer Splitter Operator Relationship Specialty Start Date End Date Nahomy Davies MD [address] [place] [address] PCP - General Internal Medicine 01/13/23 documented as of this encounter
--- OUTSIDE RECORDS SUMMARY | 2024-07-31 12:40 | XMS_ITS | Encounter Summary ---
Author Organization [employer] Address 75 [facility] 7t [place] [address] Care Team Providers Care Paintings Conservator Name Role Phone Nahomy Davies MD Primary Care Pro vider Reason for Visit * Reason Comments Med Refill Encounter Details Date Type Department Care Team ([facility] st Contact Info) Description 11/11/2023 Refill [facility] MEDICINE 230 [place] [address] Nahomy Davies MD 230 [place] [address] Type 2 diabetes mellitus without complication, without long-term current use of insulin ([facility]) Social History Tobacco Use Types [...] Description 08/06/2024 11:30 AM EDT Clinical Support [address] [address] 08/28/2024 1:15 PM EDT Office Visit [address] [address] Nahomy Davies MD [address] [place] [address] 09/26/2024 2:15 PM EDT Office Visit [address] [address] Nahomy Davies MD [address] [place] [address] documented as of this encounter Visit Diagnoses Diagnosis Type 2 diabetes mellitus without complication, without long-term current use of insulin ([facility]) documented in this encounter Additional Health Concerns Assessment Noted Time PHQ-9 Depression Total Score: 0 04/23/19 9:18 AM EST documented as of this encounter Care Teams Paintings Conservator Relationship Specialty Start Date End Date Nahomy Davies MD [address] [place] [address] PCP - General Internal Medicine 01/13/23 documented as of this encounter
--- OUTSIDE RECORDS SUMMARY | 2024-07-31 12:40 | XMS_ITS | Encounter Summary ---
Author Organization [employer] Address [address] [facility] [address] 7t [place] [address] Care Team Providers Care Special Machine Stitcher Name Role Phone Nahomy Davies MD Primary Care Pro vider Reason for Visit * Reason Comments Med Refill Encounter Details Date Type Department Care Team ([facility] st Contact Info) Description 01/18/2024 Refill [facility] CH[facility] MED & PEDS [address] [place], [place] [phone] Suyapa Doyle MD 230 [place] [address] Type 2 diabetes mellitus with other specified complication, with long-term current use of insulin ([facility]) Social History Tobacco Use Types [...] Description 08/06/2024 11:30 AM EDT Clinical Support [address] [address] 08/28/2024 1:15 PM EDT Office Visit [address] [address] Nahomy Davies MD [address] [place] [address] 09/26/2024 2:15 PM EDT Office Visit [address] [address] Nahomy Davies MD [address] [place] [address] documented as of this encounter Visit Diagnoses Diagnosis Type 2 diabetes mellitus with other specified complication, with long-term current use of insulin ([facility]) documented in this encounter Additional Health Concerns Assessment Noted Time PHQ-9 Depression Total Score: 0 04/23/19 23 9:18 AM EST documented as of this encounter Care Teams Special Machine Stitcher Relationship Specialty Start Date End Date Nahomy Davies MD [address] [place] [address] PCP - General Internal Medicine 10/5/23 documented as of this encounter
--- OUTSIDE RECORDS SUMMARY | 2024-07-31 12:40 | XMS_ITS | Encounter Summary ---
Author Organization [employer] Address 75 [facility] 7t [place] [address] Care Team Providers Care News Department Intern Name Role Phone Nahomy Davies MD Primary Care Pro vider Reason for Visit * Reason Comments Med Refill Encounter Details Date Type Department Care Team ([facility] st Contact Info) Description 11/08/2023 Refill [facility] MEDICINE 230 [place] [address] Nahomy Davies MD 230 [place] [address] Type 2 diabetes mellitus without complication, without long-term current use of insulin ([facility]) Social History Tobacco Use Types [...] 08/06/2024 11:30 AM EDT Clinical Support [address] [address] 08/28/2024 1:15 PM EDT Office Visit [address] [address] Nahomy Davies MD [address] [place] [address] 09/26/2024 2:15 PM EDT Office Visit [address] [address] Nahomy Davies MD [address] [place] [address] documented as of this encounter Visit Diagnoses Diagnosis Type 2 diabetes mellitus without complication, without long-term current use of insulin ([facility]) documented in this encounter Additional Health Concerns Assessment Noted Time PHQ-9 Depression Total Score: 0 04/23/19 9:18 AM EST documented as of this encounter Care Teams News Department Intern Relationship Specialty Start Date End Date Nahomy Davies MD [address] [place] [address] PCP - General Internal Medicine 01/13/23 documented as of this encounter
--- OUTSIDE RECORDS SUMMARY | 2024-07-31 12:40 | XMS_ITS | Encounter Summary ---
Author Organization [employer] Address 75 [facility] 7t [place] [address] Care Team Providers Care Heel Boom Operator Name Role Phone Nahomy Davies MD Primary Care Pro vider Reason for Visit * Reason Comments Med Refill Encounter Details Date Type Department Care Team ([facility] st Contact Info) Description 11/08/2023 Refill [facility] MEDICINE 230 [place] [address] Nahomy Davies MD 230 [place] [address] Type 2 diabetes mellitus without complication, without long-term current use of insulin ([facility]) Social History Tobacco [...] 08/06/2024 11:30 AM EDT Clinical Support [address] [address] 08/28/2024 1:15 PM EDT Office Visit [address] [address] Nahomy Davies MD [address] [place] [address] 09/26/2024 2:15 PM EDT Office Visit [address] [address] Nahomy Davies MD [address] [place] [address] documented as of this encounter Visit Diagnoses Diagnosis Type 2 diabetes mellitus without complication, without long-term current use of insulin ([facility]) documented in this encounter Additional Health Concerns Assessment Noted Time PHQ-9 Depression Total Score: 0 04/23/19 9:18 AM EST documented as of this encounter Care Teams Heel Boom Operator Relationship Specialty Start Date End Date Nahomy Davies MD [address] [place] [address] PCP - General Internal Medicine 01/13/23 documented as of this encounter
--- OUTSIDE RECORDS SUMMARY | 2024-07-31 12:40 | XMS_ITS | Encounter Summary ---
Author Organization [employer] Address 75 [facility] 7t [place] [address] Care Team Providers Care Back Maker Name Role Phone Naohmy Davies MD Primary Care Pro vider Reason for Visit * Reason Comments Med Refill Encounter Details Date Type Department Care Team ([facility] st Contact Info) Description 10/18/[address] [facility] MEDICINE 230 [place] [address] Nahomy Davies MD 230 [place] [address] Social History Tobacco Use Types Packs/Day Years [...] 08/06/2024 11:30 AM EDT Clinical Support [address] [address] 08/28/2024 1:15 PM EDT Office Visit [address] [address] Nahomy Davies MD [address] [place] [address] 09/26/2024 2:15 PM EDT Office Visit [address] [address] Nahomy Davies MD [address] [place] [address] documented as of this encounter Visit Diagnoses Not on filedocumented in this encounter Additional Health Concerns Assessment Noted Time PHQ-9 Depression Total Score: 0 04/23/19 9:18 AM EST documented as of this encounter Care Teams Back Maker Relationship Specialty Start Date End Date Nahomy Davies MD [address] [place] [address] PCP - General Internal Medicine 01/13/23 documented as of this encounter
--- OUTSIDE RECORDS SUMMARY | 2024-07-31 12:40 | XMS_ITS | Encounter Summary ---
Author Organization [employer] Address 75 [facility] 7t [place] [address] Care Team Providers Care Case Supervisor Name Role Phone Nahomy Davies MD Primary Care Pro vider Reason for Visit * Reason Comments Med Refill Encounter Details Date Type Department Care Team ([facility] st Contact Info) Description 01/30/2024 Refill [facility] MEDICINE 230 [place], [place] [phone] Nahomy Davies MD 230 [place] [address] Iron deficiency anemia, unspecified iron deficiency anemia [...] Description 08/06/2024 11:30 AM EDT Clinical Support [address] [address] 08/28/2024 1:15 PM EDT Office Visit [address] [address] Nahomy Davies MD [address] [place] [address] 09/26/2024 2:15 PM EDT Office Visit [address] [address] Nahomy Davies MD [address] [place] [address] documented as of this encounter Visit Diagnoses Diagnosis Iron deficiency anemia, unspecified iron deficiency anemia type Mixed hyperlipidemia documented in this encounter Additional Health Concerns Assessment Noted Time PHQ-9 Depression Total Score: 0 04/23/19 9:18 AM EST documented as of this encounter Care Teams Case Supervisor Relationship Specialty Start Date End Date Nahomy Davies MD [address] [place] [address] PCP - General Internal Medicine 01/13/23 documented as of this encounter
--- OUTSIDE RECORDS SUMMARY | 2024-07-31 12:40 | XMS_ITS | Encounter Summary ---
Author Organization [employer] Address [address] [facility] 7t [place] [address] Care Team Providers Care Communications Officer Name Role Phone Nahomy Davies MD Primary Care Pro vider Reason for Visit * Reason Comments Med Refill Encounter Details Date Type Department Care Team ([facility] st Contact Info) Description 02/27/2024 Refill [facility] MEDICINE 230 [place], [place] [phone] Irene Mei MD 230 [place], [place] [phone] Shortness of breath; Type 2 diabetes mellitus with other specified complication, with long-term current use of insulin ([facility]) Social History Tobacco Use Types Packs/Day Years [...] Description 08/06/2024 11:30 AM EDT Clinical Support [address] [address] 08/28/2024 1:15 PM EDT Office Visit [address] [address] Nahomy Davies MD [address] [place] [address] 09/26/2024 2:15 PM EDT Office Visit [address] [address] Nahomy Davies MD [address] [place] [address] documented as of this encounter Visit Diagnoses Diagnosis Shortness of breath Type 2 diabetes mellitus with other specified complication, with long-term current use of insulin ([facility]) documented in this encounter Additional Health Concerns Assessment Noted Time PHQ-9 Depression Total Score: 0 04/23/19 23 9:18 AM EST documented as of this encounter Care Teams Communications Officer Relationship Specialty Start Date End Date Nahomy Davies MD [address] [place] [address] PCP - General Internal Medicine 01/13/23 documented as of this encounter
--- OUTSIDE RECORDS SUMMARY | 2024-07-31 12:40 | XMS_ITS | Encounter Summary ---
Author Organization [employer] Address 75 [facility] 7t [place] [address] Care Team Providers Care Peanut Salter Name Role Phone Nahomy Davies MD Primary Care Pro vider Reason for Visit * Reason Comments Med Refill Encounter Details Date Type Department Care Team ([facility] st Contact Info) Description 01/22/2024 Refill [facility] MEDICINE [address] [place] [address] Nahomy Davies MD 230 [place] [address] Social History Tobacco Use Types Packs/Day Years [...] 08/06/2024 11:30 AM EDT Clinical Support [address] [address] 08/28/2024 1:15 PM EDT Office Visit [address] [address] Nahomy Davies MD [address] [place] [address] 09/26/2024 2:15 PM EDT Office Visit [address] [address] Nahomy Davies MD [address] [place] [address] documented as of this encounter Visit Diagnoses Not on filedocumented in this encounter Additional Health Concerns Assessment Noted Time PHQ-9 Depression Total Score: 0 04/23/19 9:18 AM EST documented as of this encounter Care Teams Peanut Salter Relationship Specialty Start Date End Date Nahomy Davies MD [address] [place] [address] PCP - General Internal Medicine 01/13/23 documented as of this encounter
--- OUTSIDE RECORDS SUMMARY | 2024-07-31 12:40 | XMS_ITS | Encounter Summary ---
Author Organization [facility] Address 75 [facility] 7t [place] [address] Care Team Providers Care Brass Finisher Name Role Phone Nancy Larose [facility] Primary Care Provider +1- [phone] Nahomy Davies MD Primary Care Pro vider Reason for Visit * Reason Comments Med Refill Encounter Details Date Type Department Care Team (Late st Contact Info) Description 08/30/2022 Refill [facility] MEDICINE [address] [place] [address] [phone] Anamaria Herzog FNP [address] [place] [address] Type 2 diabetes mellitus with other specified complication, with long-term current use of insulin ([facility]) Social History Tobacco Use Types Packs/Day [...] Description 08/06/2024 11:30 AM EDT Clinical Support [facility] MEDICINE 230 [place] [address] 08/28/2024 1:15 PM EDT Office Visit [facility] MEDICINE 230 [place] [address] Nahomy Davies MD 230 [place] [address] 09/26/2024 2:15 PM EDT Office Visit [address] [address] Nahomy Davies MD 230 [place] [address] documented as of this encounter Visit Diagnoses Diagnosis Type 2 diabetes mellitus with other specified complication, with long-term current use of insulin ([facility]) documented in this encounter Additional Health Concerns Assessment Noted Time PHQ-9 Depression Total Score: 0 04/23/19 9:18 AM EST documented as of this encounter Care Teams Brass Finisher Relationship Specialty Start Date End Date Nancy Larose FNP PCP - General Family Medicine 12/08/21 01/12/23 Nahomy Davies MD [address] [place] [address] PCP - General Internal Medicine 01/13/23 documented as of this encounter
--- OUTSIDE RECORDS SUMMARY | 2024-07-31 12:40 | XMS_ITS | Encounter Summary ---
Author Organization [employer] [facility] Address 75 [facility] 7t [place] [address] Care Team Providers Care Flag Decorator Name Role Phone Nancy Larose [facility] Primary Care Provider +1- [phone] Nahomy Davies MD Primary Care Pro vider Reason for Visit * Reason Comments Med Refill Encounter Details Date Type Department Care Team (Late st Contact Info) Description 09/15/2022 Refill [facility] MEDICINE [address] [place] [address] [phone] Anamaria Herzog FNP [address] [place] [address] Type 2 diabetes mellitus with other specified complication, with long-term current use of insulin ([facility] Social History Tobacco [...] Description 08/06/2024 11:30 AM EDT Clinical Support [facility] MEDICINE 230 [place] [address] 08/28/2024 1:15 PM EDT Office Visit [facility] MEDICINE 230 [place] [address] Nahomy Davies MD 230 [place] [address] 09/26/2024 2:15 PM EDT Office Visit [address] [address] Nahomy Davies MD 230 [place] [address] documented as of this encounter Visit Diagnoses Diagnosis Type 2 diabetes mellitus with other specified complication, with long-term current use of insulin ([facility]) documented in this encounter Additional Health Concerns Assessment Noted Time PHQ-9 Depression Total Score: 0 04/23/19 9:18 AM EST documented as of this encounter Care Teams Flag Decorator Relationship Specialty Start Date End Date Nancy Larose FNP PCP - General Family Medicine 12/08/21 01/12/23 Nahomy Davies MD [address] [place] [address] PCP - General Internal Medicine 01/13/23 documented as of this encounter
--- OUTSIDE RECORDS SUMMARY | 2024-07-31 12:40 | XMS_ITS | Encounter Summary ---
Author Organization [employer] Address 75 [facility] 7t [place] [address] Care Team Providers Care Roll On Worker Name Role Phone Nahomy Davies MD Primary Care Pro vider Reason for Visit * Reason Comments Med Refill Encounter Details Date Type Department Care Team ([facility] st Contact Info) Description 10/12/2023 Refill [facility] CH[facility] MED & PEDS [address] [place], [place] [phone] Nahomy Davies MD 230 [place] [address] Iron deficiency anemia, unspecified iron deficiency anemia [...] 08/06/2024 11:30 AM EDT Clinical Support [address] [address] 08/28/2024 1:15 PM EDT Office Visit [address] [address] Nahomy Davies MD [address] [place] [address] 09/26/2024 2:15 PM EDT Office Visit [address] [address] Nahomy Davies MD [address] [place] [address] documented as of this encounter Visit Diagnoses Diagnosis Iron deficiency anemia, unspecified iron deficiency anemia type documented in this encounter Additional Health Concerns Assessment Noted Time PHQ-9 Depression Total Score: 0 04/23/19 9:18 AM EST documented as of this encounter Care Teams Roll On Worker Relationship Specialty Start Date End Date Nahomy Davies MD [address] [place] [address] PCP - General Internal Medicine 01/13/23 documented as of this encounter
--- OUTSIDE RECORDS SUMMARY | 2024-07-31 12:40 | XMS_ITS | Encounter Summary ---
Author Organization [employer] Address 75 [facility] 7t [place] [address] Care Team Providers Care Financial Accountant Name Role Phone Nahomy Davies MD Primary Care Pro vider Reason for Visit * Reason Comments Med Refill Encounter Details Date Type Department Care Team ([facility] st Contact Info) Description 02/23/2024 Refill [facility] MEDICINE [address] [place] [address] Nahomy Davies MD 230 [place] [address] Essential hypertension; Type 2 diabetes mellitus without complication, without long-term current use of insulin ([facility]) Social History Tobacco Use Types Packs/Day [...] Description 08/06/2024 11:30 AM EDT Clinical Support [address] [address] 08/28/2024 1:15 PM EDT Office Visit [address] [address] Nahomy Davies MD [address] [place] [address] 09/26/2024 2:15 PM EDT Office Visit [address] [address] Nahomy Davies MD [address] [place] [address] documented as of this encounter Visit Diagnoses Diagnosis Essential hypertension Unspecified essential hypertension Type 2 diabetes mellitus without complication, without long-term current use of insulin ([facility]) documented in this encounter Additional Health Concerns Assessment Noted Time PHQ-9 Depression Total Score: 0 04/23/19 23 9:18 AM EST documented as of this encounter Care Teams Financial Accountant Relationship Specialty Start Date End Date Nahomy Davies MD [address] [place] [phone] PCP - General Internal Medicine 01/13/23 documented as of this encounter
--- OUTSIDE RECORDS SUMMARY | 2024-07-31 12:40 | XMS_ITS | Encounter Summary ---
Author Organization [employer] [facility] Address [address] [facility] 7t [place] [address] Care Team Providers Care Healthcare Facility Administrator Name Role Phone Nancy Larose [facility] Primary Care Provider [phone]- [phone] Nahomy Davies MD Primary Care Pro vider Reason for Visit * Reason Comments Med Refill Encounter Details Date Type Department Care Team (Late st Contact Info) Description 09/23/2022 Refill [facility] MEDICINE [address] [place] [address] Nancy Larose FNP [address] [place] [address] [place] [address] Shortness of breath Social History Tobacco Use [...] Clinical Support [facility] MEDICINE [address] [place] [address] 08/28/2024 1:15 PM EDT Office Visit [facility] MEDICINE [address] [place] [address] Nahomy Davies MD [address] [place] [address] [phone] 09/26/2024 2:15 PM EDT Office Visit [address] [phone] Nahomy Davies MD [address] [place] [address] documented as of this encounter Visit Diagnoses Diagnosis Shortness of breath documented in this encounter Additional Health Concerns Assessment Noted Time PHQ-9 Depression Total Score: 0 04/23/19 23 9:18 AM EST documented as of this encounter Care Teams Healthcare Facility Administrator Relationship Specialty Start Date End Date Nancy Larose FNP PCP - General Family Medicine 12/08/21 01/12/23 Nahomy Davies MD [address] [place] [address] PCP - General Internal Medicine 01/13/23 documented as of this encounter
--- OUTSIDE RECORDS SUMMARY | 2024-07-31 12:40 | XMS_ITS | Encounter Summary ---
Author Organization [employer] Address 75 [facility] 7t [place] [address] Care Team Providers Care Casino Manager Name Role Phone Nahomy Davies MD Primary Care Pro vider Reason for Visit * Reason Comments Med Refill Encounter Details Date Type Department Care Team ([facility] st Contact Info) Description 01/31/2024 Refill [facility] MEDICINE 230 [place], [place] [phone] Nahomy Davies MD 230 [place] [address] Iron deficiency anemia, unspecified iron deficiency anemia [...] Description 08/06/2024 11:30 AM EDT Clinical Support [address] [address] 08/28/2024 1:15 PM EDT Office Visit [address] [address] Nahomy Davies MD [address] [place] [address] 09/26/2024 2:15 PM EDT Office Visit [address] [address] Nahomy Davies MD [address] [place] [address] documented as of this encounter Visit Diagnoses Diagnosis Iron deficiency anemia, unspecified iron deficiency anemia type Mixed hyperlipidemia documented in this encounter Additional Health Concerns Assessment Noted Time PHQ-9 Depression Total Score: 0 04/23/19 9:18 AM EST documented as of this encounter Care Teams Casino Manager Relationship Specialty Start Date End Date Nahomy Davies MD [address] [place] [phone] PCP - General Internal Medicine 01/13/23 documented as of this encounter
--- OUTSIDE RECORDS SUMMARY | 2024-07-31 12:41 | XMS_ITS | Encounter Summary ---
Author Organization [employer] Address 75 [facility] 7t [place] [address] Care Team Providers Care Ornithology Teacher Name Role Phone Nahomy Davies MD Primary Care Pro vider Reason for Visit * Reason Comments Med Refill Encounter Details Date Type Department Care Team ([facility] st Contact Info) Description 06/29/2023 Refill [facility] MEDICINE 230 [place] [address] Nahomy Davies MD 230 [place] [address] Social History Tobacco Use Types Packs/Day Years [...] Description 08/06/2024 11:30 AM EDT Clinical Support [address] [address] 08/28/2024 1:15 PM EDT Office Visit [address] [address] Nahomy Davies MD [address] [place] [address] 09/26/2024 2:15 PM EDT Office Visit [address] [address] Nahomy Davies MD [address] [place] [address] documented as of this encounter Visit Diagnoses Not on filedocumented in this encounter Additional Health Concerns Assessment Noted Time PHQ-9 Depression Total Score: 0 04/23/19 9:18 AM EST documented as of this encounter Care Teams Ornithology Teacher Relationship Specialty Start Date End Date Nahomy Davies MD [address] [place] [address] [phone] PCP - General Internal Medicine 01/13/23 documented as of this encounter
--- OUTSIDE RECORDS SUMMARY | 2024-07-31 12:41 | XMS_ITS | Encounter Summary ---
Author Organization [employer] Address [address] [facility] [address] 7t [place] [address] Care Team Providers Care Editor Book Name Role Phone Nahomy Davies MD Primary Care Pro vider Reason for Visit * Reason Comments Med Refill Encounter Details Date Type Department Care Team ([facility] st Contact Info) Description 07/30/2024 Refill [facility] CHC MED & PEDS [address] [place], [place] [phone] Suyapa Doyle MD 230 [place] [address] Social History Tobacco Use Types Packs/Day Years [...] 08/06/2024 11:30 AM EDT Clinical Support [address] [address] 08/28/2024 1:15 PM EDT Office Visit [address] [address] Nahomy Davies MD [address] [place] [address] 09/26/2024 2:15 PM EDT Office Visit [address] [address] Nahomy Davies MD [address] [place] [address] documented as of this encounter Visit Diagnoses Not on filedocumented in this encounter Additional Health Concerns Assessment Noted Time PHQ-9 Depression Total Score: 0 04/23/19 9:18 AM EST documented as of this encounter Care Teams Editor Book Relationship Specialty Start Date End Date Nahomy Davies MD [address] [place] [phone] PCP - General Internal Medicine 01/13/23 documented as of this encounter
--- OUTSIDE RECORDS SUMMARY | 2024-07-31 12:41 | XMS_ITS | Encounter Summary ---
Author Organization [employer] Address 75 [facility] [address] 7t [place] [address] Care Team Providers Care Research Assistant Professor Name Role Phone Nahomy Davies MD Primary Care Pro vider Reason for Visit * Reason Comments Med Refill Encounter Details Date Type Department Care Team ([facility] st Contact Info) Description 07/10/2024 Refill [facility] CHC MED & PEDS [address] [place], [place] [phone] Suyapa Doyle MD 230 [place] [address] Acquired hypothyroidism; Osteopenia determined by x-ray; Sleep [...] 08/06/2024 11:30 AM EDT Clinical Support [address] [address] 08/28/2024 1:15 PM EDT Office Visit [address] [address] Nahomy Davies MD [address] [place] [address] 09/26/2024 2:15 PM EDT Office Visit [address] [address] Nahmoy Davies MD [address] [place] [address] documented as of this encounter Visit Diagnoses Diagnosis Acquired hypothyroidism Unspecified hypothyroidism Osteopenia determined by x-ray Sleep disturbance Unspecified sleep disturbance Iron deficiency anemia, unspecified iron deficiency anemia type documented in this encounter Additional Health Concerns Assessment Noted Time PHQ-9 Depression Total Score: 0 04/23/19 23 9:18 AM EST documented as of this encounter Care Teams Research Assistant Professor Relationship Specialty Start Date End Date Nahomy Davies MD [address] [place] [address] PCP - General Internal Medicine 01/13/23 documented as of this encounter
--- OUTSIDE RECORDS SUMMARY | 2024-07-31 12:41 | XMS_ITS | Encounter Summary ---
Author Organization [employer] Address 75 [facility] 7t [place] [address] Care Team Providers Care Manager Ems Name Role Phone Nahomy Davies MD Primary Care Pro vider Reason for Visit * Reason Comments Med Refill Encounter Details Date Type Department Care Team ([facility] st Contact Info) Description 06/23/2023 Refill [facility] MEDICINE 230 [place] [address] Nahomy Davies MD 230 [place] [address] Social History Tobacco Use Types Packs/Day Years [...] 08/06/2024 11:30 AM EDT Clinical Support [address] [address] 08/28/2024 1:15 PM EDT Office Visit [address] [address] Nahomy Davies MD [address] [place] [address] 09/26/2024 2:15 PM EDT Office Visit [address] [address] Nahomy Davies MD [address] [place] [address] documented as of this encounter Visit Diagnoses Not on filedocumented in this encounter Additional Health Concerns Assessment Noted Time PHQ-9 Depression Total Score: 0 04/23/19 9:18 AM EST documented as of this encounter Care Teams Manager Ems Relationship Specialty Start Date End Date Nahomy Davies MD [address] [place] [address] [phone] PCP - General Internal Medicine 01/13/23 documented as of this encounter
--- OUTSIDE RECORDS SUMMARY | 2024-07-31 12:41 | XMS_ITS | Encounter Summary ---
Author Organization [employer] Address 75 [facility] 7t [place] [address] Care Team Providers Care Ship'S Cook Name Role Phone Nahomy Davies MD Primary Care Pro vider Reason for Visit * Reason Comments Med Refill Encounter Details Date Type Department Care Team ([facility] st Contact Info) Description 07/04/2023 Refill [facility] MEDICINE 230 [place] [address] Nahomy Davies MD 230 [place] [address] Social History Tobacco Use Types Packs/Day Years [...] Description 08/06/2024 11:30 AM EDT Clinical Support [address] [address] 08/28/2024 1:15 PM EDT Office Visit [address] [address] Nahomy Davies MD [address] [place] [address] 09/26/2024 2:15 PM EDT Office Visit [address] [address] Nahomy Davies MD [address] [place] [address] documented as of this encounter Visit Diagnoses Not on filedocumented in this encounter Additional Health Concerns Assessment Noted Time PHQ-9 Depression Total Score: 0 04/23/19 9:18 AM EST documented as of this encounter Care Teams Ship'S Cook Relationship Specialty Start Date End Date Nahomy Davies MD [address] [place] [address] [phone] PCP - General Internal Medicine 01/13/23 documented as of this encounter
--- OUTSIDE RECORDS SUMMARY | 2024-07-31 12:41 | XMS_ITS | Encounter Summary ---
Author Organization [employer] Address 75 [facility] 7t [place] [address] Care Team Providers Care Ops Manager Name Role Phone Nahomy Davies MD Primary Care Pro vider Reason for Visit * Reason Onset Date Comments Durable Medical Equipment 07/26/2024 Recert - incont products Encounter Details Date Type Department Care Team ([facility] st Contact Info) Description 07/26/2024 Telephone [facility] MEDICINE 230 [place] [address] Nahomy Davies MD 230 [place] [address] Durable Medical Equipment (Recert - incont products) Social History Tobacco Use Types Packs/Day Years [...] encounter Miscellaneous Notes * Telephone Encounter - Sandy Reyna - 07/31/2024 9:54 AM EDT Confirmation of order for incontinence supplies signed and faxed to Kyl[facility] . Confirmation received and sent to scan. If patient calls to check status on above, please advise them to contact Kylie at [phone]. * Telephone Encounter - Sandy Reyna - 07/26/2024 2:55 PM EDT Confirmation of order for incontinence supplies from [employer] placed on PCP desk for signature. documented in this encounter Plan of Treatment Upcoming Encounters Date Type Department Care Team (Late st Contact Info) Description 08/06/2024 11:30 AM EDT Clinical Support [facility] MEDICINE [address] [place] [address] 08/28/2024 1:15 PM EDT Office Visit [facility] MEDICINE [address] [place] [address] Nahomy Davies MD [address] [place] [address] 09/26/2024 2:15 PM EDT Office Visit [facility] MEDICINE 230 [place] [address] Nahomy Davies MD 230 [place] [address] documented as of this encounter Visit Diagnoses Not on filedocumented in this encounter Additional Health Concerns Assessment Noted Time PHQ-9 Depression Total Score: 0 04/23/19 9:18 AM EST documented as of this encounter Care Teams Ops Manager Relationship Specialty Start Date End Date Nahomy Davies MD 230 [place] [address] PCP - General Internal Medicine 01/13/23 documented as of this encounter
--- OUTSIDE RECORDS SUMMARY | 2024-07-31 12:41 | XMS_ITS | Encounter Summary ---
Author Organization [employer] Address 75 [facility] 7t [place] [address] Care Team Providers Care Boring Machine Set Up Operator Jig Name Role Phone Nahomy Davies MD Primary Care Pro vider Reason for Visit * Reason Comments Med Refill Encounter Details Date Type Department Care Team ([facility] st Contact Info) Description 03/05/2024 Refill [facility] MEDICINE 230 [place], [place] [phone] Irene Mei MD 230 [place], [place] [phone] Type 2 diabetes mellitus with other specified complication, with long-term current use of insulin ([facility]); Shortness of breath; Chronic neck [...] Description 08/06/2024 11:30 AM EDT Clinical Support [address] [address] 08/28/2024 1:15 PM EDT Office Visit [address] [address] Nahomy Davies MD [address] [place] [address] 09/26/2024 2:15 PM EDT Office Visit [address] [address] Nahomy Davies MD [address] [place] [address] documented as of this encounter Visit Diagnoses Diagnosis Type 2 diabetes mellitus with other specified complication, with long-term current use of insulin ([facility]) Shortness of breath Chronic neck pain Cervicalgia documented in this encounter Additional Health Concerns Assessment Noted Time PHQ-9 Depression Total Score: 0 04/23/19 23 9:18 AM EST documented as of this encounter Care Teams Boring Machine Set Up Operator Jig Relationship Specialty Start Date End Date Nahomy Davies MD [address] [place] [address] PCP - General Internal Medicine 01/13/23 documented as of this encounter
--- OUTSIDE RECORDS SUMMARY | 2024-07-31 12:41 | XMS_ITS | Encounter Summary ---
Author Organization [employer] Address [address] [facility] [address] 7t [place] [address] Care Team Providers Care Joinery Setter Out Name Role Phone Nahomy Davies MD Primary Care Pro vider Reason for Visit * Reason Comments Med Refill Encounter Details Date Type Department Care Team ([facility] st Contact Info) Description 07/10/2024 Refill [facility] CHC MED & PEDS [address] [place], [place] [phone] Irene Mei MD 230 [place] [address] Type 2 diabetes mellitus without complication, without long-term current use of insulin ([facility]) Social History Tobacco Use Types Packs/Day Years [...] Description 08/06/2024 11:30 AM EDT Clinical Support [address] [address] 08/28/2024 1:15 PM EDT Office Visit [address] [address] Nahomy Davies MD [address] [place] [address] 09/26/2024 2:15 PM EDT Office Visit [address] [address] Nahomy Davies MD [address] [place] [address] documented as of this encounter Visit Diagnoses Diagnosis Type 2 diabetes mellitus without complication, without long-term current use of insulin ([facility]) documented in this encounter Additional Health Concerns Assessment Noted Time PHQ-9 Depression Total Score: 0 04/23/19 9:18 AM EST documented as of this encounter Care Teams Joinery Setter Out Relationship Specialty Start Date End Date Nahomy Davies MD [address] [place] [phone] PCP - General Internal Medicine 01/13/23 documented as of this encounter
--- OUTSIDE RECORDS SUMMARY | 2024-07-31 12:41 | XMS_ITS | Encounter Summary ---
Author Organization [employer] Address 75 [facility] 7t [place] [address] Care Team Providers Care Electric Appliance Installer Name Role Phone Nahomy Davies MD Primary Care Pro vider Reason for Visit * Reason Comments Med Refill Encounter Details Date Type Department Care Team ([facility] st Contact Info) Description 05/16/2024 Refill [facility] CHC MED & PEDS 505 [place], [place] [phone] Nahomy Davies MD 230 [place], [place] [phone] Social History Tobacco Use Types Packs/Day Years [...] Description 08/06/2024 11:30 AM EDT Clinical Support [address] [address] 08/28/2024 1:15 PM EDT Office Visit [address] [address] Nahomy Davies MD [address] [place] [address] 09/26/2024 2:15 PM EDT Office Visit [address] [address] Nahomy Davies MD [address] [place] [address] documented as of this encounter Visit Diagnoses Not on filedocumented in this encounter Additional Health Concerns Assessment Noted Time PHQ-9 Depression Total Score: 0 04/23/19 9:18 AM EST documented as of this encounter Care Teams Electric Appliance Installer Relationship Specialty Start Date End Date Nahomy Davies MD [address] [place] [address] PCP - General Internal Medicine 01/13/23 documented as of this encounter
--- OUTSIDE RECORDS SUMMARY | 2024-07-31 12:41 | XMS_ITS | Encounter Summary ---
Author Organization [employer] Address 75 [facility] 7 [place] [address] Care Team Providers Care Checkering Machine Adjuster Name Role Phone Nahomy Davies MD Primary Care Pro vider Reason for Visit * Reason Onset Date Comments Med Refill 07/27/2024 Encounter Details Date Type Department Care Team (Late st Contact Info) Description 07/27/2024 Refill [facility] MEDICINE 230 [place] [address] Nahomy Davies MD 230 [place] [address] Type 2 diabetes mellitus without complication, without long-term current use of insulin ([facility]); Iron deficiency anemia, unspecified iron [...] encounter Miscellaneous Notes * Telephone Encounter - Emily Tadeo LPN - 07/27/2024 4:24 PM EDT Pended medications needing refills. Last seen 06/06/24. * Telephone Encounter - Minh Dickens - 07/27/2024 4:16 PM EDT TC from pt requesting medication refill. Medications needing refill : Acetaminophen Extra Strength 500 MG tablet Ascorbic Acid (vitamin C) 250 MG tablet glucose blood (FreeStyle Precision Mahesh Test) test strip ferrous gluconate (Fergon) 324 (38 Fe) MG tablet aspirin (Aspirin Low Dose) 81 MG EC tablet Calcium + Vitamin D3 600-10 MG-MCG tablet levothyroxine (Synthroid, Levoxyl) 75 MCG tablet melatonin 5 MG tablet Multiple Vitamin (Tab-A-Nelly) tablet cholecalciferol VITAMIN D (Vitamin D-3) 50 MCG (1999 UT) capsule To be sent to: [facility] - [place], [place] - [address] [place] [address] documented in this encounter Plan of Treatment Upcoming Encounters Date Type Department Care Team (Late st Contact Info) Description 08/06/2024 11:30 AM EDT Clinical Support [address] [place] [address] 08/28/2024 1:15 PM EDT Office Visit [address] [place] [address] Nahomy Davies MD [address] [place] [address] 09/26/2024 2:15 PM EDT Office Visit [address] [address] Nahomy Davies MD [address] [place] [address] documented as of this encounter Visit Diagnoses Diagnosis Type 2 diabetes mellitus without complication, without long-term current use of insulin ([facility]) Iron deficiency anemia, unspecified iron deficiency anemia type documented in this encounter Additional Health Concerns Assessment Noted Time PHQ-9 Depression Total Score: 0 04/23/19 9:18 AM EST documented as of this encounter Care Teams Checkering Machine Adjuster Relationship Specialty Start Date End Date Nahomy Davies MD [address] [place] [phone] PCP - General Internal Medicine 01/13/23 documented as of this encounter
--- OUTSIDE RECORDS SUMMARY | 2024-07-31 12:41 | XMS_ITS | Encounter Summary ---
Author Organization [employer] Address [address] [facility] [address] 7t [place] [address] Care Team Providers Care Slate Roofer Name Role Phone Nahomy Davies MD Primary Care Pro vider Reason for Visit * Reason Comments Med Refill Encounter Details Date Type Department Care Team ([facility] st Contact Info) Description 04/20/[address] [facility] CHC MED & PEDS [address] [place], [place] [phone] Suyapa Doyle MD 230 [place] [address] Iron deficiency anemia, unspecified iron deficiency anemia [...] Description 08/06/2024 11:30 AM EDT Clinical Support [address] [address] 08/28/2024 1:15 PM EDT Office Visit [address] [address] Nahomy Davies MD [address] [place] [address] 09/26/2024 2:15 PM EDT Office Visit [address] [address] Nahomy Davies MD [address] [place] [address] documented as of this encounter Visit Diagnoses Diagnosis Iron deficiency anemia, unspecified iron deficiency anemia type documented in this encounter Additional Health Concerns Assessment Noted Time PHQ-9 Depression Total Score: 0 04/23/19 9:18 AM EST documented as of this encounter Care Teams Slate Roofer Relationship Specialty Start Date End Date Nahomy Davies MD [address] [place] [phone] PCP - General Internal Medicine 01/13/23 documented as of this encounter
--- OUTSIDE RECORDS SUMMARY | 2024-07-31 12:41 | XMS_ITS | Encounter Summary ---
Author Organization [employer] Address [address] [facility] 7t [place] [address] Care Team Providers Care Conference Reservationist Name Role Phone Nahomy Davies MD Primary Care Pro vider Reason for Visit * Reason Comments Med Refill Encounter Details Date Type Department Care Team ([facility] st Contact Info) Description 06/20/2023 Refill [facility] MEDICINE [address] [place] [address] Nahomy Davies MD [address] [place] [address] Social History Tobacco Use Types Packs/Day Years [...] Description 08/06/2024 11:30 AM EDT Clinical Support [address] [address] 08/28/2024 1:15 PM EDT Office Visit [address] [address] Nahomy Davies MD [address] [place] [address] 09/26/2024 2:15 PM EDT Office Visit [address] [address] Nahomy Davies MD [address] [place] [address] documented as of this encounter Visit Diagnoses Not on filedocumented in this encounter Additional Health Concerns Assessment Noted Time PHQ-9 Depression Total Score: 0 04/23/19 9:18 AM EST documented as of this encounter Care Teams Conference Reservationist Relationship Specialty Start Date End Date Nahomy Davies MD [address] [place] [address] [phone] PCP - General Internal Medicine 01/13/23 documented as of this encounter
--- OUTSIDE RECORDS SUMMARY | 2024-07-31 12:41 | XMS_ITS | Encounter Summary ---
Author Organization [employer] Address 75 [facility] 7t [place] [address] Care Team Providers Care Tax Manager Name Role Phone Nahomy Davies MD Primary Care Pro vider Reason for Visit * Reason Comments Med Refill Encounter Details Date Type Department Care Team ([facility] st Contact Info) Description 04/20/2024 Refill [facility] [address] [place], [place] [phone] Nahomy Davies MD [address] [place] [address] Mixed hyperlipidemia Social History Tobacco Use Types [...] 08/06/2024 11:30 AM EDT Clinical Support [address] [address] 08/28/2024 1:15 PM EDT Office Visit [address] [address] Nahomy Davies MD [address] [place] [address] 09/26/2024 2:15 PM EDT Office Visit [address] [address] Nahomy Davies MD [address] [place] [address] documented as of this encounter Visit Diagnoses Diagnosis Mixed hyperlipidemia documented in this encounter Additional Health Concerns Assessment Noted Time PHQ-9 Depression Total Score: 0 04/23/19 9:18 AM EST documented as of this encounter Care Teams Tax Manager Relationship Specialty Start Date End Date Nahomy Davies MD [address] [place] [phone] PCP - General Internal Medicine 01/13/23 documented as of this encounter
--- OUTSIDE RECORDS SUMMARY | 2024-07-31 12:41 | XMS_ITS | Encounter Summary ---
Author Organization [employer] Address 75 [facility] 7t [place] [address] Care Team Providers Care Retail Sales Vitamin Consultant Name Role Phone Nahomy Davies MD Primary Care Pro vider Reason for Visit * Reason Comments Med Refill Encounter Details Date Type Department Care Team ([facility] st Contact Info) Description 06/05/[address] [facility] MEDICINE [address] [place] [address] Nahomy Davies MD [address] [place] [address] Social History Tobacco Use Types Packs/Day Years [...] 08/06/2024 11:30 AM EDT Clinical Support [address] [address] 08/28/2024 1:15 PM EDT Office Visit [address] [address] Nahomy Davies MD [address] [place] [address] 09/26/2024 2:15 PM EDT Office Visit [address] [address] Nahomy Davies MD [address] [place] [address] documented as of this encounter Visit Diagnoses Not on filedocumented in this encounter Additional Health Concerns Assessment Noted Time PHQ-9 Depression Total Score: 0 04/23/19 9:18 AM EST documented as of this encounter Care Teams Retail Sales Vitamin Consultant Relationship Specialty Start Date End Date Nahomy Davies MD [address] [place] [address] [phone] PCP - General Internal Medicine 01/13/23 documented as of this encounter
--- OUTSIDE RECORDS SUMMARY | 2024-07-31 12:41 | XMS_ITS | Encounter Summary ---
Author Organization [employer] Address 75 [facility] 7t [place] [address] Care Team Providers Care Clinical Services Assistant Name Role Phone Nahomy Davies MD Primary Care Pro vider Reason for Visit * Reason Comments Med Refill Encounter Details Date Type Department Care Team ([facility] st Contact Info) Description 07/10/2024 Refill [facility] MEDICINE [address] [place] [address] Nahomy Davies MD [address] [place] [address] Iron deficiency anemia, unspecified iron deficiency anemia [...] Description 08/06/2024 11:30 AM EDT Clinical Support [address] [address] 08/28/2024 1:15 PM EDT Office Visit [address] [address] Nahomy Davies MD [address] [place] [phone] 09/26/2024 2:15 PM EDT Office Visit [address] [address] Nahomy Davies MD [address] [place] [address] documented as of this encounter Visit Diagnoses Diagnosis Iron deficiency anemia, unspecified iron deficiency anemia type documented in this encounter Additional Health Concerns Assessment Noted Time PHQ-9 Depression Total Score: 0 04/23/19 9:18 AM EST documented as of this encounter Care Teams Clinical Services Assistant Relationship Specialty Start Date End Date Nahoym Davies MD [address] [place] [phone] PCP - General Internal Medicine 01/13/23 documented as of this encounter
--- OUTSIDE RECORDS SUMMARY | 2024-07-31 12:41 | XMS_ITS | Encounter Summary ---
Author Organization [employer] Address 75 [facility] 7t [place] [address] Care Team Providers Care Sheet Metal Pattern Cutter Name Role Phone Nancy Larose ELECTRICAL CONTROLS ENGINEER Primary Care Provider [phone] Nahomy Davies MD Primary Care Pro vider Reason for Visit * Reason Comments Med Refill Encounter Details Date Type Department Care Team (Late st Contact Info) Description 11/10/2022 Refill [facility] MEDICINE [address] [place] [address] Nancy Larose FNP [address] [place] [address] Dept [place] [address] Type 2 diabetes mellitus without complication, without long-term current use of insulin ([facility]); Sleep disturbance; Constipation, unspecified constipation [...] Description 08/06/2024 11:30 AM EDT Clinical Support [address] [address] 08/28/2024 1:15 PM EDT Office Visit [address] [address] Nahomy Davies MD [address] [place] [address] 09/26/2024 2:15 PM EDT Office Visit [address] [address] Nahomy Davies MD [address] [place] [phone] documented as of this encounter Visit Diagnoses Diagnosis Type 2 diabetes mellitus without complication, without long-term current use of insulin ([facility]) Sleep disturbance Unspecified sleep disturbance Constipation, unspecified constipation type Essential hypertension Unspecified essential hypertension Gastroesophageal reflux disease without esophagitis Esophageal reflux Cobalamin deficiency Other B-complex deficiencies Osteopenia determined by x-ray documented in this encounter Additional Health Concerns Assessment Noted Time PHQ-9 Depression Total Score: 0 04/23/19 9:18 AM EST documented as of this encounter Care Teams Sheet Metal Pattern Cutter Relationship Specialty Start Date End Date Nancy Larose FNP PCP - General Family Medicine 12/08/21 01/12/23 Nahomy Davies MD [address] [place] [phone] PCP - General Internal Medicine 01/13/23 documented as of this encounter
--- OUTSIDE RECORDS SUMMARY | 2024-07-31 12:41 | XMS_ITS | Encounter Summary ---
Author Organization [employer] Address 75 [facility] 7t [place] [address] Care Team Providers Care Automotive Detailer Name Role Phone Nhaomy Davies MD Primary Care Pro vider Reason for Visit * Reason Comments Med Refill Encounter Details Date Type Department Care Team ([facility] st Contact Info) Description 02/02/2024 Refill [facility] MEDICINE 230 [place], [place] [phone] Nahomy Davies MD [address] [place] [address] Iron deficiency anemia, unspecified iron deficiency anemia [...] 08/06/2024 11:30 AM EDT Clinical Support [address] [address] 08/28/2024 1:15 PM EDT Office Visit [address] [address] Nahomy Davies MD [address] [place] [address] 09/26/2024 2:15 PM EDT Office Visit [address] [address] Nahomy Davies MD [address] [place] [address] documented as of this encounter Visit Diagnoses Diagnosis Iron deficiency anemia, unspecified iron deficiency anemia type Mixed hyperlipidemia documented in this encounter Additional Health Concerns Assessment Noted Time PHQ-9 Depression Total Score: 0 04/23/19 9:18 AM EST documented as of this encounter Care Teams Automotive Detailer Relationship Specialty Start Date End Date Nahomy Davies MD [address] [place] [phone] PCP - General Internal Medicine 01/13/23 documented as of this encounter
--- OUTSIDE RECORDS SUMMARY | 2024-07-31 12:41 | XMS_ITS | Clinical Summary ---
Author Organization [employer] Address [address] [facility] [address] [place] [address] Care Team Providers Care Mural Artist Name Role Phone Nahomy Davies MD [...] complication, without long-term current use of insulin ([facility]) APPLY A SMALL AMOUNT TOPICALLY TO AFFECTED AREA(S) TWO TIMES A DAY 60 g 3 023 Active latanoprost (Xalatan) 0.005 % ophthalmic solution Administer 1 drop into both eyes at bedtime. 023 Active brimonidine-timol ol (Combigan) 0.2-0.5 % ophthalmic solution Administer 1 drop into both eyes 2 times daily. 023 Active pen needle 31G x 8 mm misc USE DAILY as INSTRUCTED 100 each 11 024 Active Continuous Glucose Press Tender (Upworthy Anthony 2 [place]) device Use as directed to monitor glucose ever 8 hours. 1 each Active Continuous Glucose Sensor (FreeStyle Anthony 2 Sensor) [facility] Use as directed to monitor glucose ever 8 hours. Replace sensor every 14 days. 2 each Active insulin glargine (Lantus SoloStar) 100 UNIT/ML penIndications:Ty pe 2 diabetes mellitus with hypoglycemia without coma, with long-term current use of insulin ([facility]) Inject 18 Units under the skin at [...] SHOULDER PAIN (BULK) 100 g 5 Active metFORMIN XR (Glucophage-XR) 500 MG 24 hr tabletIndications :Type 2 diabetes mellitus without complication, without long-term current use of insulin ([facility]) TAKE 2 TABLETS BY MOUTH TWO TIMES A DAY WITH FOOD 112 tablet 5 Active metoprolol succinate XL (Toprol-XL) 50 MG 24 hr tabletIndications :Essential hypertension TAKE ONE TABLET BY MOUTH EVERY DAY ^1R1 30 tablet 5 Active lidocaine (Lidoderm) 5 % patchIndications: Chronic neck pain APPLY ONE PATCH TOPICALLY ONCE DAILY - REMOVE AND DISCARD PATCH WITHIN 12 HOURS OR DIRECTED BY MD (BULK) 30 patch 3 Active albuterol 108 (90 Base) MCG/ACT inhalerIndication s:Shortness of breath INHALE TWO PUFFS BY MOUTH FOUR TIMES A DAY (BULK) 8.5 g 3 Active glucose 4 g chewable tabletIndications :Type 2 diabetes mellitus with other specified complication, with long-term current use of insulin ([facility]) CHEW AND SWALLOW 4 TABLETS BY MOUTH IF NEEDED FOR LOW BLOOD SUGAR (BULK) 50 tablet 3 Active FreeStyle lancets 1 each by Other route 3 times daily. USE TO TEST BLOOD SUGAR THREE TIMES A DAY 200 each 3 025 Active cholecalciferol VITAMIN D (Vitamin D-3) [...] 2 diabetes mellitus without complication, unspecified whether vermin exterminator insulin use (CMS/HCC) USE TO TEST BLOOD SUGAR AND ADMINISTER INSULIN AT NOON AND IN THE EVENING (5-7 TIMES DAILY ) (BULK) 200 each 025 Active simvastatin (Zocor) 40 MG tabletIndications :Mixed hyperlipidemia TAKE 1 TABLET BY MOUTH AT BEDTIME ^1R4 90 tablet 3 025 Active Arnuity Ellipta 100 MCG/ACT inhaler INHALE ONE PUFF BY MOUTH EVERY DAY RINSE MOUTH AFTER USE TO REDUCE AFTERTASTE AND INCIDENCE OF CANDIDIASIS. DO NOT SWALLOW (BULK) 30 each 11 025 Active Continuous Glucose Press Tender (FreeStyle Anthony 3 [place]) deviceIndications :Type 2 diabetes mellitus with other specified complication, with long-term current use of insulin (CMS/HCC) 1 each Once per day. Use as directed for CGM 1 each 03/20/2 025 Active Continuous Glucose Sensor (FreeStyle Anthony 3 Plus Sensor) miscIndications:T ype 2 diabetes mellitus with other specified complication, with long-term current use of insulin ([facility]) 1 each every 15 days. Apply 1 every 15 days as directed for CGM 2 each Active pregabalin (Lyrica) 100 MG capsule TAKE ONE CAPSULE BY MOUTH TWICE A DAY ^1R1,1R4 56 capsule 1 Active Icosapent Ethyl (Vascepa) 1 g capsule Take 2 capsules (2 g) by mouth with breakfast and with evening meal. 120 capsule 5 025 2025 Active Acetaminophen Extra Strength 500 MG tabletIndications :Type 2 diabetes mellitus without complication, without long-term current use of insulin ([facility]) TAKE ONE TO TWO TABLETS BY MOUTH THREE TIMES A DAY NEEDED (VIAL) 60 tablet 1 Active ferrous gluconate (Fergon) 324 (38 Fe) MG tabletIndications :Iron deficiency anemia, unspecified iron deficiency anemia type TAKE ONE TABLET BY MOUTH EVERY DAY WITH BREAKFAST 30 tablet 5 025 Active Ascorbic Acid (vitamin C) 250 MG tabletIndications :Iron deficiency anemia, unspecified iron deficiency anemia type TAKE ONE TABLET BY MOUTH EVERY MORNING ^1R1 30 tablet 5 025 Active glucose blood (FreeStyle Precision Mahesh Test) test stripIndications: Type 2 diabetes mellitus without complication, without long-term current use of insulin ([facility]) USE TO TEST BLOOD SUGAR THREE TIMES A DAY 100 each 11 Active glucose blood (FreeStyle Precision Mahesh Test) test strip Test blood sugar q 8 hours 100 each 12 024 2024 Discontinued(R eorder (will not trigger notification to Pharmacy)) pregabalin (Lyrica) 100 MG capsule TAKE ONE CAPSULE BY MOUTH TWICE A DAY ^1R1,1R4 56 capsule 5 024 2024 Discontinued omega-3 acid ethyl esters (Lovaza) 1 g capsuleIndication s:Mixed hyperlipidemia TAKE TWO CAPSULES BY MOUTH TWICE A DAY ^2R2,2R3 120 capsule 5 024 2024 Discontinued(O ther) Ascorbic Acid (vitamin C) 250 MG tabletIndications :Iron deficiency anemia, unspecified iron deficiency anemia type TAKE ONE TABLET BY MOUTH EVERY MORNING ^1R1 30 tablet 5 024 2024 Discontinued(R eorder (will not trigger notification to Pharmacy)) Acetaminophen Extra Strength 500 MG tabletIndications :Type 2 diabetes mellitus without complication, without long-term current use of insulin ([facility]) TAKE ONE TO TWO TABLETS BY MOUTH THREE TIMES A DAY NEEDED (VIAL) 60 tablet 1 025 2024 Discontinued(R eorder (will not trigger notification to Pharmacy)) ferrous gluconate (Fergon) 324 (38 Fe) MG tabletIndications :Iron deficiency anemia, unspecified iron deficiency anemia type TAKE ONE TABLET BY MOUTH EVERY DAY WITH BREAKFAST 30 tablet 025 2024 Discontinued(R eorder (will not trigger notification to Pharmacy)) Active Problems Problem Noted Date Diagnosed Date [...] Encounters Date Type Department Care Team Description 07/30/2024 Refill [facility] [address], [place] [phone] Suyapa Doyle MD 07/27/2024 Refill [facility] [address] [place] [phone] Nahomy Davies MD Type 2 diabetes mellitus without complication, without long-term current use of insulin ([facility]); Iron deficiency anemia, unspecified iron deficiency anemia type 07/26/2024 Telephone [facility] [address] [place] [phone] Nahomy Daives MD Durable Medical Equipment (Recert - incont products) 07/25/2024 Orders Only GENERIC EXTERNAL DATA DEPARTMENT Provider, Generic External Data 07/12/2024 Orders Only [facility] [address] [place] [phone] Nahomy Davies MD 07/12/2024 Telephone [facility] [address] [place] [phone] Nahomy Davies MD Prior Auth Prescription ([place]-3) 07/10/2024 Refill [facility] [address], [place] [phone] Irene Mie MD Type 2 diabetes mellitus without complication, without long-term current use of insulin (CMS/HCC) 07/10/2024 Refill [facility] [address] [place] [address] Suyapa Doyle MD Acquired hypothyroidism; Osteopenia determined by x-ray; Sleep disturbance; Iron deficiency anemia, unspecified iron deficiency anemia type 07/10/2024 Refill [facility] [address] [place] [address] Nahomy Davies MD Iron deficiency anemia, unspecified iron deficiency anemia type 07/06/2024 10:30 AM EDT Clinical Support [facility] [address] [place] [address] Kiarra Iniguez RN Type 2 diabetes mellitus with other specified complication, with long-term current use of insulin ([facility]) 07/06/2024 Travel 07/03/2024 Refill [facility] [address] [place] [address] Nahomy Davies MD 06/25/2024 Telephone [facility] [address] [place] [address] Nahomy Davies MD Durable Medical Equipment 06/21/2024 Telephone [facility] [address] [place] [phone] Nahomy Davies MD No Show 06/20/2024 Telephone [facility] [address] [place] [address] Nahomy Davies MD May recall 06/13/2024 Refill [facility] [address] [place] [address] Nahomy Davies MD Type 2 diabetes mellitus with other specified complication, with long-term current use of insulin ([facility]) 06/13/2024 Refill [facility] [address] [place] [address] Nahomy Davies MD 06/06/2024 11:00 AM EST Office Visit [facility] [address] [place] [address] Jp Snow MD Scalp mass (Primary Dx); Right knee injury, initial encounter 05/29/2024 Refill [facility] [address] [place] [address] Suyapa Doyle MD Iron deficiency anemia, unspecified iron deficiency anemia type; Mixed hyperlipidemia 05/29/2024 Refill [facility] [address] [place] [address] Nahomy Davies MD Mixed hyperlipidemia 05/16/2024 Refill [facility] [address] [place] [address] Suyapa Doyle MD Type 2 diabetes mellitus without complication, unspecified whether long-term insulin use ([facility]); Type 2 diabetes mellitus without complication, without long-term current use of insulin ([facility]) 05/16/2024 Refill [facility] [address] [place] [address] Nahomy Davies MD 05/15/2024 10:15 AM EST Office Visit [facility] [address] [place], [place] [phone] Era Belle CNM Visit for pelvic exam (Primary Dx); Rash 05/15/2024 Travel 05/02/2024 Telephone [facility] [address] [place] [address] Kyara Jansen, heavy repairer Question from Last 3 Months Immunizations Name Administration [...] 08/06/2024 11:30 AM EDT Clinical Support [address] [address] 08/28/2024 1:15 PM EDT Office Visit [address] [address] Nahomy Davies MD [address] [place] [phone] 09/26/2024 2:15 PM EDT Office Visit [address] [address] Nahomy Davies MD [address] [place] [phone] Health Maintenance Due Date Last Done Comments [...] Procedure Name Priority Date/Time Associated Diagnosis Comments HIGH SENSITIVITY TROPONIN I Routine 07/25/2024 5:[address] HEAD WO CONTRAST Routine 07/25/2024 3 :47 PM EDT XR CHEST 2 VIEWS Routine [...] Recently Relevant to Health Maintenance Results * High Sensitivity Troponin I (07/25/2024 5:03 PM EDT) TROPONIN I HIGH SENSITIVITY <2.7 <3.5 - 17.0 ng/L [facility] Comment:The [place] high sens itivity Troponin-I results should beused in conjunction with other diagnostic information suchas ECG, clinical observations and information, and patientsymptoms to aid in the diagnosis of [place]. 07/25/2024 5:03 PM EDT 07/25/2024 5:07 PM EDT us Generic External Data Provider LAB BLOOD ORDERAB LES Final Result [facility] [address] [place] [phone] * CT Head w/o Contrast (07/25/2024 3:47 PM EDT) Anatomical Region Laterality Modality Head, Neck Computed Tomogra phy 07/25/2024 3:47 PM EDT Narrative 07/25/2024 4:34 PM EDT ? [facility] ?[address] ?[place] [address] ? CT Scan Report ? Signed ? Patient: Adrián Louie,Arlette ?MR#: MM ?? [id number] ? : 1945 ?Acct:[id number] ? Age/Sex: 79 / F ?ADM Date: 07/25/24 ? Loc: HO.ED ? Attending Dr: ? Ordering Physician: Heydi Faustin NP ?? Date of Service: 07/25/24 ?? Procedure(s): CT head/brain wo IV con ?? Accession Number(s): [id number] ? cc: Nahomy Davies MD; Heydi Faustin NP ? Report Number: ?? [id number]: Total DLP = ??748.00 mGy-cm ?? EXAMINATION: [...] DD/ 1547 ? TD/TT: 07/25/24 1623 ? Brake Lining Finisher: ? Procedure Note Ulysses, Image - 07/25/[address] [place] [address] [address] Scan Report Signed Patient: Clarisa Dias#: [id number] : 7Acct:[id number] Age/Sex: 79 / FADM Date: 07/25/24 Loc: HO.ED Attending Dr: Ordering Physician: Heydi Faustin NP Date of Service: 07/25/24 Procedure(s): CT head/brain wo IV con Accession Number(s): [id number] cc: Nahomy Davies MD; Heydi Faustin NP Report Number: [id number]: Total DLP = 748.00 mGy-cm EXAMINATION: CT [...] Jony Jama MD 07/25/2024 04:31 PM EDT Dictated By: Jony Jama MD Signed By: <Electronically signed by Jony Jama MD in OV> 07/25/24 1631 DD/ 1547 TD/TT: 07/25/24 1623 Brake Lining Finisher: [facility] External Provider IMG CT PROCEDURES Final Result * XR Chest 2 Views (07/25/2024 2:50 PM EDT) Anatomical Region Laterality Modality Chest Radiographic Sylvia ging 07/25/2024 2:50 PM EDT Narrative 07/25/2024 3:05 PM EDT ? [facility] ?[address] ?[place] [address] ?XRay Report ? Signed ? Patient: Sampson Louie,Arlette ?MR#: MM ?? [id number] ? : 1945 ?Acct:[id number] ? Age/Sex: 79 / F ?ADM Date: 04/16/25 ? Loc: HO.ED ? Attending Dr: ? Ordering Physician: Heydi Faustin NP ?? Date of Service: 07/25/24 ?? Procedure(s): XR chest 2V ?? Accession Number(s): [id number] ? cc: Nahomy Davies MD; Heydi Faustin [...] DD/ 1450 ? TD/TT: 07/25/24 1456 ? Brake Lining Finisher: ? Procedure Note Roger Arora - 07/25/2024 [place] [address] XRay Report Signed Patient: Annmarie DiasNicole#: [id number] : 7Acct:[id number] Age/Sex: 79 / FADM Date: 07/25/24 Loc: HO.ED Attending Dr: Ordering Physician: Heydi Faustin NP Date of Service: 07/25/24 Procedure(s): XR chest 2V Accession Number(s): [id number] cc: Nahomy Davies MD; Heydi Faustin NP [...] Jony Jama MD 07/25/2024 03:02 PM EDT RP Dictated By: Jony Jama MD Signed By: <Electronically signed by Jony Jama MD in OV> 07/25/24 1502 DD/ 1450 TD/TT: 07/25/24 1456 Brake Lining Finisher: [facility] External Provider IMG XR PROCEDURES Final Result * XR Elbow 1-2 Views Right (05/23/2024 6:45 PM EST) Anatomical Region Laterality Modality Upper Extremities, Elbow Right Radiogr aphic Imaging 05/23/2024 6:45 PM EST Narrative 05/23/2024 6:47 PM EST ? [facility] ?[address] ?[place] [address] ?XRay Report ? Signed ? Patient: Arlette Dias ?MR#: MM ?? [id number] ? : 1945 ?Acct:[id number] ? Age/Sex: 79 / F ?ADM Date: 05/23/24 ? Loc: HO.ED ? Attending Dr: ? Ordering Physician: Jeannie Moulton ?? Date of Service: 05/23/24 ?? Procedure(s): XR elbow RT 2V ?? Accession Number(s): [id number] ? cc: Nahomy Davies MD; Jeannie Moulton [...] MD in OV> ? 05/23/241845 ? DD/ ? TD/TT: 05/23/241844 ? Brake Lining Finisher: ? Procedure Note Donotuseinterpreter, Image - 05/23/[address] [address] XRay Report Signed Patient: Gifty DiasR#: [id number] : 1945cct:[id number] Age/Sex: 79 / FADM Date: 05/23/24 Loc: HO.ED Attending Dr: Ordering Physician: Jeannie Moulton Date of Service: 05/23/24 Procedure(s): XR elbow RT 2V Accession Number(s): [id number] cc: Nahomy Davies MD; Jeannie Moulton CLINICAL [...] in OV> 05/23/241845 DD/ 44 TD/TT: 05/23/241844 Brake Lining Finisher: [facility] External Provider IMG XR PROCEDURES Final Result * XR Knee 3 Views Right (05/23/2024 1:39 PM EST) Anatomical Region Laterality Modality Lower Extremities, Knee Right Radiogra phic Imaging 05/23/2024 1:39 PM EST Narrative 05/23/2024 2:12 PM EST ? [facility] ?[address] ?[place] [address] ?XRay Report ? Signed ? Patient: Sampson Louie,Arlette ?MR#: MM ?? [id number] ? : 1945 ?Acct:[id number] ? Age/Sex: 79 / F ?ADM Date: 05/23/24 ? Loc: HO.ED ? Attending Dr: ? Ordering Physician: Jeannie Moulton ?? Date of Service: 05/23/24 ?? Procedure(s): XR knee RT 3V ?? Accession Number(s): [id number] ? cc: Nahomy Davies MD; Jeannie Moulton [...] PM ?? EST RP ? Dictated By: ?Hurt Bakari,Xander MD ? Signed By: ?<Electronically signed by Xander Villegas MD in OV> ? 05/23/24 1410 ? DD/ 1339 ? TD/TT: 05/23/24 1404 ? Brake Lining Finisher: ? Procedure Note Roger Arora - 05/23/[address] [address] XRay Report Signed Patient: Gifty DiasR#: [id number] : 7Acct:[id number] Age/Sex: 79 / FADM Date: 05/23/24 Loc: HO.ED Attending Dr: Ordering Physician: Jeannie Moulton Date of Service: 05/23/24 Procedure(s): XR knee RT 3V Accession Number(s): [id number] cc: Nahomy Davies MD; Jeannie Moulton EXAMINATION: [...] Xander Hurt MD 05/23/2024 02:10 PM EST RP Dictated By: Xander Castellanos MD Signed By: <Electronically signed by Xander Villegas MDin OV> 05/23/24 1410 DD/ 1339 TD/TT: 05/23/24 1404 Brake Lining Finisher: [facility] External Provider IMG XR PROCEDURES Final Result * XR Forearm 2 Views Right (05/23/2024 1:39 PM EST) Anatomical Region Laterality Modality Upper Extremities, Forearm Right Radio graphic Imaging 05/23/2024 1:39 PM EST Narrative 05/23/2024 2:11 PM EST ? [facility] ?[address] ?[place] [address] ?XRay Report ? Signed ? Patient: Sampson Louie,Arlette ?MR#: MM ?? [id number] ? : 1945 ?Acct:[id number] ? Age/Sex: 79 / F ?ADM Date: 02/12/25 ? Loc: HO.ED ? Attending Dr: ? Ordering Physician: Jeannie Moulton ?? Date of Service: 05/23/24 ?? Procedure(s): XR forearm RT 2V ?? Accession Number(s): [id number] ? cc: Nahomy Davies MD; Jeannie Moulton [...] DD/ 1339 ? TD/TT: 05/23/24 1404 ? Brake Lining Finisher: ? Procedure Note Roger Arora - 05/23/[address] [address] XRay Report Signed Patient: Gifty DiasR#: [id number] : 1945cct:[id number] Age/Sex: 79 / FADM Date: 05/23/24 Loc: HO.ED Attending Dr: Ordering Physician: Jeannie Moulton Date of Service: 05/23/24 Procedure(s): XR forearm RT 2V Accession Number(s): [id number] cc: Nahomy Davies MD; Jeannie Moulton EXAMINATION: XR FOREARM, RIGHT CLINICAL INFORMATION: fall COMPARISON: None available. TECHNIQUE: AP and lateral views of the right forearm were obtained. FINDINGS: No acute cortical disruption. No metallic or radiopaque foreign body. No subcutaneous emphysema. No lytic or blastic lesions.. XR/XR forearm RT 2V IMPRESSION: No acute fracture. Electronically signed by: Xander Hurt MD 05/23/2024 02:08 PM [facility] Dictated By: Xander Castellanos MD Signed By: <Electronically signed by Xander Villegas MDin OV> 05/23/24 1408 DD/ 1339 TD/TT: 05/23/24 1404 Brake Lining Finisher: [facility] External Provider IMG XR PROCEDURES Final Result * XR Elbow 3+ Views Right (05/23/2024 1:39 PM EST) Anatomical Region Laterality Modality Upper Extremities, Elbow Right Radiogr aphic Imaging 05/23/2024 1:39 PM EST Narrative 05/23/2024 2:13 PM EST ? [facility] ?[address] ?[place] [address] ?XRay Report ? Signed ? Patient: Annmarie Diasa ?MR#: MM ?? [id number] ? : 1945 ?Acct:[id number] ? Age/Sex: 79 / F ?ADM Date: 05/23/24 ? Loc: HO.ED ? Attending Dr: ? Ordering Physician: Jeannie Moulton ?? Date of Service: 05/23/24 ?? Procedure(s): XR elbow RT min 3V ?? Accession Number(s): [id number] ? cc: Nahomy Davies MD; Jeannie Moulton [...] DD/ 1339 ? TD/TT: 05/23/24 1404 ? Brake Lining Finisher: ? Procedure Note Eddieter, Image - 05/23/[address] [address] XRay Report Signed Patient: Gifty DiasR#: [id number] : 1945cct:[id number] Age/Sex: 79 / FADM Date: 05/23/24 Loc: HO.ED Attending Dr: Ordering Physician: Jeannie Moulton Date of Service: 05/23/24 Procedure(s): XR elbow RT min 3V Accession Number(s): [id number] cc: Nahomy Davies MD; Jeannie Moulton EXAMINATION: [...] 05/23/24 1410 DD/ 1339 TD/TT: 05/23/24 1404 Brake Lining Finisher: [facility] External Provider IMG XR PROCEDURES Final Result * (ABNORMAL) Albumin, Random Urine W/Creatinine (11/22/2023 12:40 PM EDT) Creatinine, Urine 66.52 mg/dL HO [facility] Microalbumin Urine 23.0 mg/L H [facility] Microalbum Creatinine Ratio Ur 34.5(H) <30 ug/mg cr [facility] Comment:Albumin/Creatinine R at Reference Ranges: Normal: < 30 ug/mg creatinine Microalbuminuria: 30 - 300 ug/mg creatinineClinical Albuminuria: > 300 ug/mg creatinine 11/22/2023 12:4 0 PM EDT 11/22/2023 5:12 PM EDT us Nahomy Kessler MD LAB URINE ORDERAB LES Final Result [facility] [address] [place] [phone] * (ABNORMAL) POCT HGB A1C (11/22/2023 10:45 AM EDT) Hemoglobin A1C 8.0(A) 4.0 - 6.0 % QC Media Lot # [id number] Lot# Expiration Date ,082,[id number] Blood 11/22/2023 10:4 5 AM EDT us Nahomy Kessler MD POINT OF CARE ADWOA T ENTER/EDIT ORDERABLES Final Result * (ABNORMAL) Lipid Panel, Standard (11/14/2023 10:00 AM EDT) Triglycerides 293(H) <150 mg/dL [facility] Comment:Desirable Triglyceri de: less than 150 mg/dLBorderline High Triglyceride 150-199 mg/dLHigh Triglyceride: 200-499 mg/dLVery High Triglyceride: greater than or equal to 5OO mg/dL Cholesterol 135 <200 mg/dL [facility] Comment:Desirable Cholestero l: less than 200 mg/dLBorderline High Cholesterol: 200-239 mg/dLHigh Cholesterol: greater than 239 mg/dL LDL Cholesterol Calculated 40 <100 mg/dL [facility] Comment:Desirable LDL: less than 100 mg/dLNear Optimal/Above Optimal LDL: 110- 129 mg/dLBorderline High LDL: 130-159 mg/dLHigh LDL: 160-189 mg/dLVery High LDL: greater than or equal to 190 mg/dL HDL Cholesterol 37(L) >40 mg/dL [facility] Comment:Desirable HDL: great er than 40 mg/dL Note: This HDL assay may give artificially low results in patients with liver disease. Blood Venous blood specimen / Unknown 11/14/2023 10:00 AM EDT 11/14/2023 11:16 AM EDT us Nahomy Kessler MD LAB BLOOD ORDERAB LES Final Result Performing Organization Address City/[facility]/ZIP Co de Phone Number [facility] [address] [place] [phone] * Hepatitis C Antibody with Reflex to HCV, RNA, Quantitative, Real-Time PCR (03/22/2023 8:23 AM EST) Hepatitis C Antibody Nonreactive Nonreactive [facility] Comment:Antibodies to HCV no t detected; does not exclude early acuteHCV infection. Blood Venous blood specimen / Unknown 03/22/2023 8:23 AM EST 03/22/2023 11:12 AM EST us Nahomy Kessler MD LAB BLOOD ORDERAB LES Final Result Performing Organization Address City/[facility]/ZIP Co de Phone Number [facility] [address] [place] [phone] from Last 3 Months or Most Recently Relevant to Health Maintenance Insurance [facility] Care Teams Mural Artist Relationship Specialty Start Date End Date Nahomy Davies MD [address] [place] [address] PCP - General Internal Medicine 01/13/23
--- OUTSIDE RECORDS SUMMARY | 2024-07-31 12:41 | XMS_ITS | Encounter Summary ---
Author Organization [employer] Address 75 [facility] 7 [place] [address] Care Team Providers Care Acoustical Carpenter Name Role Phone Nahomy Davies MD Primary Care Pro vider Reason for Visit * Reason Comments Med Refill Encounter Details Date Type Department Care Team ([facility] st Contact Info) Description 03/21/2024 Refill [facility] & PEDS [address] [place], [place] [phone] Nahomy Davies MD [address] [place] [address] Type 2 diabetes mellitus without complication, without long-term current use of insulin ([facility]/H[facility]); Type 2 diabetes mellitus without complication, unspecified whether manager terminal insulin use (CMS/[facility]); Iron deficiency anemia, unspecified iron deficiency [...] Description 08/06/2024 11:30 AM EDT Clinical Support [address] [address] 08/28/2024 1:15 PM EDT Office Visit [facility] MEDICINE [address] [place] [address] Nahomy Davies MD [address] [place] [address] 09/26/2024 2:15 PM EDT Office Visit [facility] MEDICINE [address] [place] [address] Nahomy Davies MD [address] [place] [address] documented as of this encounter Visit Diagnoses Diagnosis Type 2 diabetes mellitus without complication, unspecified whether manager terminal insulin use ([facility]) Iron deficiency anemia, unspecified iron deficiency anemia type Acquired hypothyroidism Unspecified hypothyroidism Sleep disturbance Unspecified sleep disturbance Osteopenia determined by x-ray documented in this encounter Additional Health Concerns Assessment Noted Time PHQ-9 Depression Total Score: 0 04/23/19 9:18 AM EST documented as of this encounter Care Teams Acoustical Carpenter Relationship Specialty Start Date End Date Nahomy Davies MD [address] [place] [address] PCP - General Internal Medicine 01/13/23 documented as of this encounter
--- OUTSIDE RECORDS SUMMARY | 2024-07-31 12:41 | XMS_ITS | Encounter Summary ---
Author Organization [employer] Address 75 [facility] 7t [place] [address] Care Team Providers Care Clothes Shaker Name Role Phone Nahomy Davies MD Primary Care Pro vider Reason for Visit * Reason Comments Med Refill Encounter Details Date Type Department Care Team ([facility] st Contact Info) Description 02/07/2023 Refill [facility] MEDICINE [address] [place], [place] [phone] Nancy Larose FNP [address] [place] [address] Dept [place] [address] Social History Tobacco Use Types Packs/Day Years [...] Description 08/06/2024 11:30 AM EDT Clinical Support [address] [address] 08/28/2024 1:15 PM EDT Office Visit [address] [address] Nahomy Davies MD [address] [place] [address] 09/26/2024 2:15 PM EDT Office Visit [address] [address] Nahomy Davies MD [address] [place] [address] documented as of this encounter Visit Diagnoses Not on filedocumented in this encounter Additional Health Concerns Assessment Noted Time PHQ-9 Depression Total Score: 0 04/23/19 9:18 AM EST documented as of this encounter Care Teams Clothes Shaker Relationship Specialty Start Date End Date Nahomy Davies MD [address] [place] [address] PCP - General Internal Medicine 01/13/23 documented as of this encounter
--- OUTSIDE RECORDS SUMMARY | 2024-07-31 12:41 | XMS_ITS | Encounter Summary ---
Author Organization [employer] Address 75 [facility] 7t [place] [address] Care Team Providers Care Window Repairer Name Role Phone Nahomy Davies MD Primary Care Pro vider Reason for Visit * Reason Comments Med Refill Encounter Details Date Type Department Care Team ([facility] st Contact Info) Description 01/31/2023 Refill [facility] MEDICINE 230 [place], [place] [phone] Nancy Larose FNP [address] [place] [address] Dept [place] [address] Social History Tobacco Use Types Packs/Day Years [...] 08/06/2024 11:30 AM EDT Clinical Support [address] [address] 08/28/2024 1:15 PM EDT Office Visit [address] [address] Nahomy Davies MD [address] [place] [address] 09/26/2024 2:15 PM EDT Office Visit [address] [address] Nahomy Davies MD [address] [place] [address] documented as of this encounter Visit Diagnoses Not on filedocumented in this encounter Additional Health Concerns Assessment Noted Time PHQ-9 Depression Total Score: 0 04/23/19 9:18 AM EST documented as of this encounter Care Teams Window Repairer Relationship Specialty Start Date End Date Nahomy Davies MD [address] [place] [address] PCP - General Internal Medicine 01/13/23 documented as of this encounter
--- OUTSIDE RECORDS SUMMARY | 2024-07-31 12:41 | XMS_ITS | Encounter Summary ---
Author Organization [employer] Address 75 [facility] 7t [place] [address] Care Team Providers Care Cloth Trimmer Hand Name Role Phone Nahomy Davies MD Primary Care Pro vider Reason for Visit * Reason Comments Med Refill Encounter Details Date Type Department Care Team ([facility] st Contact Info) Description 02/28/2024 Refill [facility] MEDICINE 230 [place], [place] [phone] Irene Mei MD 230 [place], [place] [phone] Type 2 diabetes mellitus with other specified complication, with long-term current use of insulin ([facility]); Shortness of breath; Chronic neck pain Social [...] 08/06/2024 11:30 AM EDT Clinical Support [address] [address] 08/28/2024 1:15 PM EDT Office Visit [address] [address] Nahomy Davies MD [address] [place] [address] 09/26/2024 2:15 PM EDT Office Visit [address] [address] Nahomy Davies MD [address] [place] [address] documented as of this encounter Visit Diagnoses Diagnosis Type 2 diabetes mellitus with other specified complication, with long-term current use of insulin ([facility]) Shortness of breath Chronic neck pain Cervicalgia documented in this encounter Additional Health Concerns Assessment Noted Time PHQ-9 Depression Total Score: 0 04/23/19 23 9:18 AM EST documented as of this encounter Care Teams Cloth Trimmer Hand Relationship Specialty Start Date End Date Nahomy Davies MD [address] [place] [address] PCP - General Internal Medicine 01/13/23 documented as of this encounter
--- OUTSIDE RECORDS SUMMARY | 2024-07-31 12:41 | XMS_ITS | Encounter Summary ---
Author Organization [employer] Address 75 [facility] 7t [place] [address] Care Team Providers Care Loss Prevention Consultant Name Role Phone Nahomy Davies MD Primary Care Pro vider Reason for Visit * Reason Comments Med Refill Encounter Details Date Type Department Care Team ([facility] st Contact Info) Description 03/07/2024 Refill [facility] MEDICINE 230 [place], [place] [phone] Irene Mei MD 230 [place], [place] [phone] Shortness of breath; Type 2 diabetes mellitus with other specified complication, with long-term current use of insulin ([facility]); Chronic neck pain Social History Tobacco Use [...] Description 08/06/2024 11:30 AM EDT Clinical Support [address] [address] 08/28/2024 1:15 PM EDT Office Visit [address] [address] Nahomy Davies MD [address] [place] [address] 09/26/2024 2:15 PM EDT Office Visit [address] [address] Nahomy Davies MD [address] [place] [address] documented as of this encounter Visit Diagnoses Diagnosis Shortness of breath Type 2 diabetes mellitus with other specified complication, with long-term current use of insulin ([facility]) Chronic neck pain Cervicalgia documented in this encounter Additional Health Concerns Assessment Noted Time PHQ-9 Depression Total Score: 0 04/23/19 23 9:18 AM EST documented as of this encounter Care Teams Loss Prevention Consultant Relationship Specialty Start Date End Date Nahomy Davies MD [address] [place] [address] PCP - General Internal Medicine 01/13/23 documented as of this encounter
--- OUTSIDE RECORDS SUMMARY | 2024-07-31 12:41 | XMS_ITS | Encounter Summary ---
Author Organization [employer] Address 75 [facility] 7t [place] [address] Care Team Providers Care Solution Developer Name Role Phone Nahomy Davies MD Primary Care Pro vider Reason for Visit * Reason Comments Med Refill Encounter Details Date Type Department Care Team ([facility] st Contact Info) Description 06/06/2023 Refill [facility] MEDICINE 230 [place] [address] Nahomy Davies MD 230 [place] [address] Social History Tobacco Use Types Packs/Day Years [...] Description 08/06/2024 11:30 AM EDT Clinical Support [address] [address] 08/28/2024 1:15 PM EDT Office Visit [address] [address] Nahomy Davies MD [address] [place] [address] 09/26/2024 2:15 PM EDT Office Visit [address] [address] Nahomy Davies MD [address] [place] [address] documented as of this encounter Visit Diagnoses Not on filedocumented in this encounter Additional Health Concerns Assessment Noted Time PHQ-9 Depression Total Score: 0 04/23/19 9:18 AM EST documented as of this encounter Care Teams Solution Developer Relationship Specialty Start Date End Date Nahomy Davies MD [address] [place] [address] [phone] PCP - General Internal Medicine 01/13/23 documented as of this encounter
--- OUTSIDE RECORDS SUMMARY | 2024-07-31 12:41 | XMS_ITS | Encounter Summary ---
Author Organization [employer] Address 75 [facility] 7t [place] [address] Care Team Providers Care Net Sorter Name Role Phone Nahomy Davies MD Primary Care Pro vider Reason for Visit * Reason Comments Med Refill Encounter Details Date Type Department Care Team ([facility] st Contact Info) Description 06/13/2023 Refill [facility] MEDICINE 230 [place] [address] Nahomy Davies MD 230 [place] [address] Social History Tobacco Use Types Packs/Day Years [...] Description 08/06/2024 11:30 AM EDT Clinical Support [address] [address] 08/28/2024 1:15 PM EDT Office Visit [address] [address] Nahomy Davies MD [address] [place] [address] 09/26/2024 2:15 PM EDT Office Visit [address] [address] Nahomy Davies MD [address] [place] [address] documented as of this encounter Visit Diagnoses Not on filedocumented in this encounter Additional Health Concerns Assessment Noted Time PHQ-9 Depression Total Score: 0 04/23/19 9:18 AM EST documented as of this encounter Care Teams Net Sorter Relationship Specialty Start Date End Date Nahomy Davies MD [address] [place] [address] [phone] PCP - General Internal Medicine 01/13/23 documented as of this encounter
--- OUTSIDE RECORDS SUMMARY | 2024-07-31 12:41 | XMS_ITS | Encounter Summary ---
Author Organization [employer] Address 75 [facility] 7t [place] [address] Care Team Providers Care Network Project Manager Name Role Phone Nancy Larose DIRECTOR OF INFORMATICS Primary Care Provider [phone] Nahomy Davies MD Primary Care Pro vider Encounter Details Date Type Department Care Team (Late st Contact Info) Description 10/19/2022 Orders Only [facility] MEDICINE [address] [place] [address] Kary Lux LPN Social History Tobacco Use [...] Description 08/06/2024 11:30 AM EDT Clinical Support [facility] MEDICINE [address] [place] [address] 08/28/2024 1:15 PM EDT Office Visit [address] [address] Nahomy Davies MD [address] [place] [address] 09/26/2024 2:15 PM EDT Office Visit [address] [address] Nahomy Davies MD [address] [place] [address] documented as of this encounter Visit Diagnoses Not on filedocumented in this encounter Additional Health Concerns Assessment Noted Time PHQ-9 Depression Total Score: 0 04/23/19 9:18 AM EST documented as of this encounter Care Teams Network Project Manager Relationship Specialty Start Date End Date Nancy Larose FNP PCP - General Family Medicine 12/08/21 01/12/23 Nahomy Davies MD [address] [place] [address] PCP - General Internal Medicine 01/13/23 documented as of this encounter
--- OUTSIDE RECORDS SUMMARY | 2024-07-31 12:41 | XMS_ITS | Encounter Summary ---
Author Organization [employer] Address [address] [facility] [address] 7t [place] [address] Care Team Providers Care Raise Driller Name Role Phone Nahomy Davies MD Primary Care Pro vider Reason for Visit * Reason Comments Med Refill Encounter Details Date Type Department Care Team ([facility] st Contact Info) Description 07/23/2023 Refill [facility] MED & PEDS [address] [place], [place] [phone] Suyapa Doyle MD 230 [place] [address] Shortness of breath Social History Tobacco Use [...] Description 08/06/2024 11:30 AM EDT Clinical Support [address] [address] 08/28/2024 1:15 PM EDT Office Visit [address] [address] Nahomy Davies MD [address] [place] [address] 09/26/2024 2:15 PM EDT Office Visit [address] [address] Nahomy Davies MD [address] [place] [address] documented as of this encounter Visit Diagnoses Diagnosis Shortness of breath documented in this encounter Additional Health Concerns Assessment Noted Time PHQ-9 Depression Total Score: 0 04/23/19 9:18 AM EST documented as of this encounter Care Teams Raise Driller Relationship Specialty Start Date End Date Nahomy Davies MD [address] [place] [phone] PCP - General Internal Medicine 01/13/23 documented as of this encounter
--- OUTSIDE RECORDS SUMMARY | 2024-07-31 12:41 | XMS_ITS | Encounter Summary ---
Author Organization [employer] Address 75 [facility] 7t [place] [address] Care Team Providers Care Public Safety Dispatcher Name Role Phone Nahomy Davies MD Primary Care Pro vider Reason for Visit * Reason Comments Med Refill Encounter Details Date Type Department Care Team ([facility] st Contact Info) Description 07/23/[address] [facility] MEDICINE 230 [place] [address] Nahomy Davies MD 230 [place] [address] Iron deficiency anemia, unspecified iron deficiency anemia type; Type 2 diabetes mellitus without complication, without long-term current use of insulin ([facility]) Social History Tobacco Use Types [...] 08/06/2024 11:30 AM EDT Clinical Support [address] [address] 08/28/2024 1:15 PM EDT Office Visit [address] [address] Nahomy Davies MD [address] [place] [address] 09/26/2024 2:15 PM EDT Office Visit [address] [address] Nahomy Davies MD [address] [place] [address] documented as of this encounter Visit Diagnoses Diagnosis Iron deficiency anemia, unspecified iron deficiency anemia type Type 2 diabetes mellitus without complication, without long-term current use of insulin ([facility]) documented in this encounter Additional Health Concerns Assessment Noted Time PHQ-9 Depression Total Score: 0 04/23/19 9:18 AM EST documented as of this encounter Care Teams Public Safety Dispatcher Relationship Specialty Start Date End Date Nahomy Davies MD [address] [place] [phone] PCP - General Internal Medicine 01/13/23 documented as of this encounter
--- OUTSIDE RECORDS SUMMARY | 2024-07-31 12:41 | XMS_ITS | Encounter Summary ---
Author Organization [employer] Address 75 [facility] 7t [place] [address] Care Team Providers Care Drag Down Name Role Phone Nahomy Davies MD Primary Care Pro vider Reason for Visit * Reason Comments Med Refill Encounter Details Date Type Department Care Team ([facility] st Contact Info) Description 02/23/2024 Refill [facility] MEDICINE 230 [place], [place] [phone] Irene Mei MD 230 [place], [place] [phone] Type 2 diabetes mellitus with other specified complication, with long-term current use of insulin ([facility]); Shortness of breath Social History Tobacco Use [...] 08/06/2024 11:30 AM EDT Clinical Support [address] [address] 08/28/2024 1:15 PM EDT Office Visit [address] [address] Nahomy Davies MD [address] [place] [address] 09/26/2024 2:15 PM EDT Office Visit [address] [address] Nahomy Davies MD [address] [place] [address] documented as of this encounter Visit Diagnoses Diagnosis Type 2 diabetes mellitus with other specified complication, with long-term current use of insulin ([facility]) Shortness of breath documented in this encounter Additional Health Concerns Assessment Noted Time PHQ-9 Depression Total Score: 0 04/23/19 23 9:18 AM EST documented as of this encounter Care Teams Drag Down Relationship Specialty Start Date End Date Nahomy Davies MD [address] [place] [address] PCP - General Internal Medicine 01/13/23 documented as of this encounter
--- OUTSIDE RECORDS SUMMARY | 2024-07-31 12:41 | XMS_ITS | Encounter Summary ---
Author Organization [employer] Address 75 [facility] 7t [place] [address] Care Team Providers Care Spiral Machine Operator Name Role Phone Nahomy Davies MD Primary Care Pro vider Reason for Visit * Reason Onset Date Comments Medication Question 03/25/2023 Encounter Details Date Type Department Care Team ([facility] st Contact Info) Description 03/25/2023 Telephone [facility] MEDICINE 230 [place] [address] Nahomy Davies MD 230 [place] [address] Medication Question Social History Tobacco Use Types [...] for FreeStyle lancets with clarifications on directions. [phone] ext [phone] documented in this encounter Plan of Treatment Upcoming Encounters Date Type Department Care Team (Late st Contact Info) Description 08/06/2024 11:30 AM EDT Clinical Support [address] [address] 08/28/2024 1:15 PM EDT Office Visit [facility] MEDICINE [address] [place] [address] Nahomy Davies MD [address] [place] [address] 09/26/2024 2:15 PM EDT Office Visit [facility] MEDICINE [address] [place] [address] Nahomy Davies MD [address] [place] [address] documented as of this encounter Visit Diagnoses Not on filedocumented in this encounter Additional Health Concerns Assessment Noted Time PHQ-9 Depression Total Score: 0 04/23/19 9:18 AM EST documented as of this encounter Care Teams Spiral Machine Operator Relationship Specialty Start Date End Date Nahomy Davies MD [address] [place] [phone] PCP - General Internal Medicine 01/13/23 documented as of this encounter
--- NOTE | 2024-09-06 12:13 | HO.ANESPROP2 ---
Documented by User: Noelle Rodriguez NP 09/06/24 12:15 HPI - Anesthesia Eval Consult details Narrative: 79yo F for Upper Endoscopy [place] [facility] [place] htn. Last eval 05/2024. [facility] [place] with chest pain, ekg changes - reviewed by cardiology and ok'd to proceed and hold asa per workload messages PMFSH Active Problems Active Problems: All Active Problems Tubular adenoma of colon (Acute) Garbled speech (Acute) Hospital discharge follow-up (Acute) Weakness of left side of body (Acute) History of carpal tunnel surgery of right wrist (Acute) Cubital tunnel syndrome on left (Acute) Carpal tunnel syndrome of left wrist (Acute) Trigger finger, right middle finger (Acute) Cubital tunnel syndrome on right (Acute) Right carpal tunnel syndrome (Acute) Left knee pain (Acute) Lumbar spondylosis (Acute) Lumbar radiculopathy (Acute) Neuropathy of right lower extremity (Acute) Preoperative cardiovascular examination (Acute) Retained orthopedic hardware (Acute) Lumbar back pain with radiculopathy affecting right lower extremity (Acute) Osteoarthritis of knees, bilateral (Acute) Encounter for screening colonoscopy (Acute) Abnormality of lung on CXR (Acute) Closed fracture of olecranon process of ulna with routine healing (Acute) Closed fracture of left olecranon process (Acute) COVID-19 (Acute) Chronic restrictive lung disease (Acute) Insomnia (Acute) Asthma (Acute) Chronic constipation (Acute) CAD (coronary artery disease) (Acute) HTN (hypertension) (Acute) Hyperlipidemia (Acute) Diabetes mellitus (Acute) Dyspnea (Acute) Non-toxic multinodular goiter (Acute) Hypothyroidism (Acute) Past Medical History Medical History Tubular adenoma of colon Chronic restrictive lung disease Insomnia On beta anish at home History of COVID-19 Asthma Chronic constipation Broken arm CAD (coronary artery disease) HTN (hypertension) Hyperlipidemia Diabetes mellitus Dyspnea Dysphagia Non-toxic multinodular goiter Hypothyroidism Family History Family History Father Throat cancer Heart disease CVD (cardiovascular disease) Mother Stomach cancer Type 2 diabetes mellitus Arthritis of knee Hypertension Family history of problems with anesthesia: No Surgical History Surgical History H/O thyroidectomy History of surgery Hx of elbow surgery History of surgery on arm Hx of cholecystectomy History of partial hysterectomy Hx of cataract surgery History of tubal ligation Hx of tonsillectomy History of carpal tunnel release Hx of colonoscopy History of Problems with Anesthesia: No Social History Social History Household Members: None Household Members Other:: self Housing: Apartment Are you a primary care specialist to a significant other at home: No Do you presently have visiting nurse or other home services: No Alcohol intake: never Patient Tobacco Use Status: Never used Tobacco Second Hand Smoke Exposure: No Advance Directives: No Advance Directives Information Provided: Yes service: No Current occupational status: retired Current occupation: right handed Meds Allergies Allergy/AdvReac Type Severity Reaction Status Date / Time lisinopril Allergy Intermediate itching Verified 09/05/24 10:29 Penicillins Allergy Intermediate rash/hives Verified 09/05/24 10:29 black pepper Allergy Mild Unknown Verified 09/05/24 10:29 fluticasone [From Flonase] Allergy Mild Unknown Verified 09/05/24 10:29 Home Medications ?Medication ?Instructions ?Recorded ?Confirmed ?Last Taken ?Type blood sugar diagnostic (FreeStyle #10 ea 02/12/20 12/09/23 Unknown History Test strips) lancets 28 gauge (FreeStyle #100 ea 02/12/20 12/09/23 Unknown History Lancets) metoprolol succinate 50 mg 50 mg PO DAILY 02/12/20 05/21/24 12/07/23 History tablet,extended release 24 hr pregabalin 100 mg capsule (Lyrica) 100 mg PO BID 02/12/20 05/21/24 Unknown History aspirin 81 mg tablet,delayed 81 mg PO DAILY 03/18/20 05/21/24 12/07/23 History release pen needle, diabetic 31 gauge x #1,200 ea 06/23/21 12/09/23 Unknown History 08/24 (Unifine Pentips) blood pressure test kit-large #1 ea 07/12/23 12/09/23 Unknown History flash glucose sensor (FreeStyle #1 ea 09/30/23 12/09/23 Unknown History Anthony 2 Sensor kit) alcohol swabs (Alcohol Prep Pads) pad topical 12/27/23 05/21/24 Unknown History insulin glargine 100 unit/mL (3 18 unit subcut BEDTIME 12/27/23 05/21/24 Unknown History mL) subcutaneous pen (Lantus Solostar U-100 Insulin) lidocaine 5 % topical patch 1 patch topical DAILY 12/27/23 05/21/24 Unknown History diazepam 2 mg tablet 2 mg PO BEDTIME PRN 06/20/24 Unknown History glipizide 2.5 mg tablet 2.5 mg PO DAILY 06/20/24 Unknown History glucose 3.75 gram chewable tablet g PO PRN 06/20/24 Unknown History albuterol sulfate 90 mcg/actuation inhalation 09/05/24 Unknown History aerosol inhaler losartan 50 mg-hydrochlorothiazide 1 tab PO DAILY 09/05/24 Unknown History 12.5 mg tablet metformin 500 mg tablet,extended 1,000 mg PO BID 09/05/24 Unknown History release 24 hr Exam Pertinent Lab Results Pertinent Lab Results: Laboratory Tests 07/25/24 14:21 WBC 7.7 Hgb 11.2 L Hct 33.6 L Plt Count 231 Sodium 141 Potassium 4.3 Chloride 108 Carbon Dioxide 27 BUN 10 Creatinine 0.67 Narrative Narrative: EKG 07/2024 Vent. Rate : 59 BPM Atrial Rate : 59 BPM P-R Int : 192 ms QRS Dur : 88 ms QT Int : 452 ms P-R-T Axes : 47 -29 -33 degrees QTcB Int : 447 ms Sinus bradycardia Moderate voltage criteria for LVH, may be normal variant ( R in aVL , Brinson product ) T wave abnormality, consider anterolateral ischemia Abnormal ECG When compared with ECG of 02-Sep-2023 00:40, T wave inversion now evident in Anterolateral leads Assessment and Plan Assessment Anesthesia Assessment: Chart Reviewed Final Anesthetic Review Family History of Problems with Anesthesia: No History of Problems with Anesthesia: No Documented by User: Snoia Guzman MD 09/07/24 10:12 PMFSH Past Medical History Medical History Tubular adenoma of colon Chronic restrictive lung disease Insomnia On beta anish at home History of COVID-19 Asthma Chronic constipation Broken arm CAD (coronary artery disease) HTN (hypertension) Hyperlipidemia Diabetes mellitus Dyspnea Dysphagia Non-toxic multinodular goiter Hypothyroidism Family History Family History Father Throat cancer Heart disease CVD (cardiovascular disease) Mother Stomach cancer Type 2 diabetes mellitus Arthritis of knee Hypertension Surgical History Surgical History H/O thyroidectomy History of surgery Hx of elbow surgery History of surgery on arm Hx of cholecystectomy History of partial hysterectomy Hx of cataract surgery History of tubal ligation Hx of tonsillectomy History of carpal tunnel release Hx of colonoscopy Social History Social History Household Members: None Household Members Other:: self Housing: Apartment Are you a primary care specialist to a significant other at home: No Do you presently have visiting nurse or other home services: No Alcohol intake: never Patient Tobacco Use Status: Never used Tobacco Second Hand Smoke Exposure: No Advance Directives: No Advance Directives Information Provided: Yes service: No Current occupational status: retired Current occupation: right handed Meds Allergies Allergy/AdvReac Type Severity Reaction Status Date / Time lisinopril Allergy Intermediate itching Verified 09/05/24 10:29 Penicillins Allergy Intermediate rash/hives Verified 09/05/24 10:29 black pepper Allergy Mild Unknown Verified 09/05/24 10:29 fluticasone [From Flonase] Allergy Mild Unknown Verified 09/05/24 10:29 Home Medications ?Medication ?Instructions ?Recorded ?Confirmed ?Last Taken ?Type blood sugar diagnostic (FreeStyle #10 ea 02/12/20 12/09/23 Unknown History Test strips) lancets 28 gauge (FreeStyle #100 ea 02/12/20 12/09/23 Unknown History Lancets) metoprolol succinate 50 mg 50 mg PO DAILY 02/12/20 05/21/24 12/07/23 History tablet,extended release 24 hr pregabalin 100 mg capsule (Lyrica) 100 mg PO BID 02/12/20 05/21/24 Unknown History aspirin 81 mg tablet,delayed 81 mg PO DAILY 03/18/20 05/21/24 12/07/23 History release pen needle, diabetic 31 gauge x #1,200 ea 06/23/21 12/09/23 Unknown History /16 (Unifine Pentips) blood pressure test kit-large #1 ea 07/12/23 12/09/23 Unknown History flash glucose sensor (FreeStyle #1 ea 09/30/23 12/09/23 Unknown History Anthony 2 Sensor kit) alcohol swabs (Alcohol Prep Pads) pad topical 12/27/23 05/21/24 Unknown History insulin glargine 100 unit/mL (3 18 unit subcut BEDTIME 12/27/23 05/21/24 Unknown History mL) subcutaneous pen (Lantus Solostar U-100 Insulin) lidocaine 5 % topical patch 1 patch topical DAILY 12/27/23 05/21/24 Unknown History diazepam 2 mg tablet 2 mg PO BEDTIME PRN 06/20/24 Unknown History glipizide 2.5 mg tablet 2.5 mg PO DAILY 06/20/24 Unknown History glucose 3.75 gram chewable tablet g PO PRN 06/20/24 Unknown History albuterol sulfate 90 mcg/actuation inhalation 09/05/24 Unknown History aerosol inhaler losartan 50 mg-hydrochlorothiazide 1 tab PO DAILY 09/05/24 Unknown History 12.5 mg tablet metformin 500 mg tablet,extended 1,000 mg PO BID 09/05/24 Unknown History release 24 hr Exam Airway Mallampati Class: II TM Dist: >3cm Neck ROM: Full Denture: Upper and Lower Heart: rrr Lungs: cta Assessment and Plan Assessment Anesthesia Assessment: Anesthesia Plan Discussed Final Anesthetic Review NPO: Yes ASA Class: III Final Preanesthetic Review: No Changes in Pt Med Stat, Meds/Allgs Chart Reviewed and Consent Obtained/Reviewed Patient Risk: Intermediate Procedure Risk: Intermediate Anesthetic Plan Anesthetic Plan: MAC: Disposition: Standard PACU
[2024-09-07 09:47] VITALS: BP 165/78; PULSE 73; RESP 20; TEMP 36.1; O2SAT 95; BMI 37.3
--- NOTE | 2024-09-07 10:12 | MHC.SHP ---
Pre-Procedural Eval Section A - 24 Hr Update-Section A only Date of Service: 09/07/24 The patient is an INPATIENT: No The patient has been examined within 24 hours of the surgical procedure. The History & Physical has been completed within 30 days and I have reviewed it.: No Section B - Complete if H&P > 30 days Chief Complaint: Dysphagia, FU of gastric intestinal metaplasia Relevant Family History (Specify if Yes): Yes Relevant Social History: None Present Medications: see Short Stay Collaborative assessment Medical History: Significant History (Tubular adenoma of colon Chronic restrictive lung disease Insomnia On beta anish at home History of COVID-19 Asthma Chronic constipation Broken arm CAD (coronary artery disease) HTN (hypertension) Hyperlipidemia Diabetes mellitus) History of Previous Operations: Relevant previous surgery/procedure and date(s) (H/O thyroidectomy History of surgery Hx of elbow surgery History of surgery on arm Hx of cholecystectomy History of partial hysterectomy Hx of cataract surgery History of tubal ligation Hx of tonsillectomy History of carpal tunnel release Hx of colonoscopy) Allergies: Allergies Allergy/AdvReac Type Severity Reaction Status Date / Time lisinopril Allergy Intermediate itching Verified 09/05/24 10:29 Penicillins Allergy Intermediate rash/hives Verified 09/05/24 10:29 black pepper Allergy Mild Unknown Verified 09/05/24 10:29 fluticasone [From Flonase] Allergy Mild Unknown Verified 09/05/24 10:29 Review of Systems Sugical H&P ROS: Negative: Constitution, Cardiovascular, Respiratory and Gastrointestinal Exam Surgical H&P Exam: Normal: Heart, Normal: Lungs, Normal: Extremities and Normal: Abdomen Plan Diagnosis/Plan: Unchanged I have reviewed the history and physical and performed a pertinent physical examination on my patient. No changes have occurred unless specified. Time Spent With Patient Time: Total time managing care of this patient today ____ minutes.
[2024-09-07 10:26] LABS: Glucose, Whole Blood 83 mg/dL (60-115)
[2024-09-07] MEDS: Lactated Ringers 1,000 ML 100 ML IVCONT (10:40)
--- NOTE | 2024-09-07 11:13 | P.OP_ITS ---
Operative Note Operative Note Date of Service: 09/07/24 Narrative: FLEXIBLE TRANSORAL UPPER GASTROINTESTINAL ENDOSCOPY WITH BIOPSIES, SNARE POLYPECTOMY OF GASTRIC POLYPS AND ESOPHAGEAL BALLOON DILATION Pre-op diagnosis: Dysphagia, follow-up of gastric polyps and gastric int estinal metaplasia Post-op diagnosis: Dysphagia, multiple gastric polyps, Gastritis, Specimens and Sources: : A- GASTRIC ANTRUM/LESSER CURVE BX ?B-ANTRUM GREATER CURVATURE BXS ?C- INCISURA BXS ?D- GASTRIC BODY GREATER CURVATURE BXS ?E- GASTRIC BODT LESSER CURVATURE BXS ?F- GASTRIC POLYPS Endoscopist:? Cris Nye MD Anesthesia:?MAC UPPER ENDOSCOPY Consent: Indications for the procedure and potential complications of bleeding, perforation, reaction to medications and missed diagnosis were discussed with the patient and informed consent was obtained. Instrument: Olympus GIF H 190 mid size upper endoscope Monitoring: Vital signs and clinical assessment, continuous EKG monitoring, Pulse oximetry, Carbon Dioxide monitoring and blood pressure monitoring were done throughout the procedure. Procedure: The patient was placed in the left lateral decubitis position and pre-procedure medications were administered and a bite block was placed. The endoscope was inserted into the mouth and advanced under direct vision to the third part of duodenum. A careful inspection was made as the upper endoscope was withdrawn including a retroflexed examination of the proximal stomach; Findings and interventions are described below. Findings: Larynx: Normal Esophagus: GE junction at 37 cms. No esophagitis and Zheng's. Mildly tortuous esophagus with increased tertiary contractions Empiric esophageal balloon dilation was of distal esophagus was performed with a 20 mm (60 F) CRE balloon x 60 seconds Empiric esophageal balloon dilation was of proximal esophagus was performed with an 18 mm (54 F) CRE balloon x 60 seconds Stomach: Three 8 10 10 mm benign appearing polyps in the gastric body and fundus - removed with a hot snare. Three 8 10 10 mm benign appearing polyps in the gastric body and fundus - remov ed with a cold biopsy .Moderate diffuse gastric erythema - mapping biopsies were obtained from the gastric body and antrum. Grade 2 flap valve on retroflexed examination of the cardia. Duodenum: Normal bulb and descending duodenum Intervention: Biopsies and esophageal balloon dilation as noted above Impression and Post Procedure Diagnosis: Endoscopy Findings: ESOPHAGUS: STOMACH: DUODENUM: Plan: Pt has a FU appointment on 10/09/24 with Iliana Salcedo NP Repeat EGD in 3 years for follow-up of gastric intestinal metaplasia and hyperplastic polyps Above findings were reviewed with the patient and relevant handouts were given and the discharge area.
[2024-09-07 11:15] VITALS: BP 101/48; PULSE 75; RESP 12; TEMP 36.1; O2SAT 97
[2024-09-07 11:20] LABS: Glucose, Whole Blood 80 mg/dL (60-115)
[2024-09-07 11:30] VITALS: BP 115/58; PULSE 70; RESP 16; TEMP 36.4; O2SAT 95
[2024-09-07 11:56] LABS: Glucose, Whole Blood 87 mg/dL (60-115)
== END 2024-09-07 12:37 | disposition home or self-care (01) ==
PROVIDERS: PCP Student in an Organized Health Care Education/Training Program; Visit Provider Internal Medicine Gastroenterology
PROC: 0DJ08ZZ Inspection of Upper Intestinal Tract, Via Natural or Artificial Opening Endoscopic (ICD-10-PCS; CPT 43235; principal; 2024-09-07 11:10)
DX: R13.12 Dysphagia, oropharyngeal phase (principal); K31.A11 Gastric intestinal metaplasia without dysplasia, involving the antrum; K31.7 Polyp of stomach and duodenum; K31.9 Disease of stomach and duodenum, unspecified; K21.9 Gastro-esophageal reflux disease without esophagitis; E11.9 Type 2 diabetes mellitus without complications; I10 Essential (primary) hypertension; E78.5 Hyperlipidemia, unspecified; E03.9 Hypothyroidism, unspecified; J45.909 Unspecified asthma, uncomplicated; Z79.899 Other long term (current) drug therapy
CPT/HCPCS: 43251; 43249; 43239; 82947; 88305; 88313; 88342; C1726; J2003; J2704

== ENCOUNTER 2024-09-19 10:05 | Outpatient (REF) | payer OTHER, SELFPAY ==
--- NOTE | ~2024-09-19 | XR_ITS ---
EXAMINATION: XR SKULL CLINICAL INFORMATION: Pain, headache, growth sensation COMPARISON: CT from July 25, 2024 TECHNIQUE: 5 views of the skull were obtained. FINDINGS: No bony destructive changes are identified. There are no lucent or sclerotic lesions. There is no periosteal new bone formation. XR/XR skull <4V IMPRESSION: Unremarkable examination. Electronically signed by: Kel Delgadillo MD 09/19/2024 10:51 AM EDT
--- OUTSIDE RECORDS SUMMARY | 2024-09-19 11:23 | XMS_ITS | Encounter Summary ---
Author Organization [employer] Address [address] [facility] [address] [place] [address] Care Team Providers Care Services Program Manager Name Role Phone Nahomy Davies MD Primary Care Pro vider Reason for Visit * Reason Comments Med Refill Encounter Details Date Type Department Care Team ([facility] st Contact Info) Description 11/11/2023 Refill [facility] [address] [place] [address] Nahomy Davies MD [address] [place] [address] Type 2 diabetes mellitus without complication, without long-term current use of insulin ([facility]) Social History Tobacco Use [...] Description 09/26/2024 2:15 PM EDT Office Visit [facility] [address] [place] [phone] Nahomy Dvaies MD [address] [place] [phone] documented as of this encounter Visit Diagnoses Diagnosis Type 2 diabetes mellitus without complication, without long-term current use of insulin ([facility]) documented in this encounter Additional Health Concerns Assessment Noted Time PHQ-9 Depression Total Score: 0 04/23/19 9:18 AM EST documented as of this encounter Care Teams Services Program Manager Relationship Specialty Start Date End Date Nahomy Davies MD [address] [place] [phone] PCP - General Internal Medicine 01/13/23 documented as of this encounter
== END 2024-09-19 10:06 | disposition home or self-care (01) ==
LOC: HO.HHCX 10:05
PROVIDERS: Visit Provider Student in an Organized Health Care Education/Training Program
DX: R51.9 Headache, unspecified (principal)
CPT/HCPCS: 70250

== ENCOUNTER → 2024-09-19 10:07 | Outpatient (BNV) | payer OTHER, SELFPAY | PROVIDERS: Visit Provider Radiology Diagnostic Radiology | DX: R51.9 Headache, unspecified (principal); R20.8 Other disturbances of skin sensation | CPT/HCPCS: 70250 ==

== ENCOUNTER 2024-10-01 09:36 | Outpatient (REF) | payer OTHER, SELFPAY ==
--- NOTE | ~2024-10-01 | XR_ITS ---
EXAMINATION: XR SHOULDER 2 OR MORE VIEWS RIGHT HISTORY: chronic bilateral shoulder pain COMPARISON: There are no prior studies available for comparison. FINDINGS: Four views of the right shoulder are submitted. Osseous mineralization is normal. There is no fracture or dislocation. The glenohumeral joint is maintained. There is moderate osteoarthritis of the AC joint with joint space narrowing and osteophyte formation. The soft tissues are unremarkable. XR/XR shoulder RT min 2V IMPRESSION: Moderate osteoarthritis of the AC joint. Electronically signed by: Grzegorz Borden MD 10/01/2024 10:19 AM EDT
--- NOTE | ~2024-10-01 | XR_ITS ---
EXAMINATION: XR SHOULDER 2 OR MORE VIEWS LEFT HISTORY: chronic bilateral shoulder pain COMPARISON: Comparison is made with the prior examination dated 04/26/2020. FINDINGS: Five views of the left shoulder are submitted. Osseous mineralization is normal. There is no fracture or dislocation. There is slight inferior subluxation of the humeral head. There is moderate osteoarthritis of the AC joint with joint space narrowing and osteophyte formation. The soft tissues are unremarkable. XR/XR shoulder LT min 2V IMPRESSION: Slight inferior subluxation of the humeral head. Moderate osteoarthritis of the AC joint. Electronically signed by: Grzegorz Borden MD 10/01/2024 10:17 AM EDT
--- NOTE | ~2024-10-01 | XR_ITS ---
EXAMINATION: XR CHEST CLINICAL INFORMATION: ongoing worsening SOB COMPARISON: 07/25/2024 TECHNIQUE: 2 views of the chest were obtained. FINDINGS: Cardiac size is enlarged. Hilar structures are unremarkable. Minimal basilar groundglass density is present bilaterally. There is no evidence of a pleural effusion. XR/XR chest 2V IMPRESSION: Probable bibasilar atelectasis, pneumonia not ruled out. Electronically signed by: Kel Delgadillo MD 10/01/2024 10:37 AM EDT
== END 2024-10-01 09:37 | disposition home or self-care (01) ==
LOC: HO.HHCX 09:36
PROVIDERS: PCP Student in an Organized Health Care Education/Training Program; Visit Provider Student in an Organized Health Care Education/Training Program
DX: M25.511 Pain in right shoulder (principal); G89.29 Other chronic pain; M25.512 Pain in left shoulder; R06.02 Shortness of breath; M19.012 Primary osteoarthritis, left shoulder; M19.011 Primary osteoarthritis, right shoulder
CPT/HCPCS: 71046; 73030

== ENCOUNTER → 2024-10-01 09:41 | Outpatient (BNV) | payer OTHER, SELFPAY | PROVIDERS: PCP Student in an Organized Health Care Education/Training Program; Visit Provider Radiology Diagnostic Radiology | DX: R91.8 Other nonspecific abnormal finding of lung field (principal); M19.011 Primary osteoarthritis, right shoulder; S43.032A Inferior subluxation of left humerus, initial encounter | CPT/HCPCS: 71046; 73030 ==

== ENCOUNTER 2024-10-04 09:10 | Outpatient (REF) | payer OTHER, SELFPAY ==
--- OUTSIDE RECORDS SUMMARY | 2024-10-04 10:01 | XMS_ITS | Encounter Summary ---
Author Organization [employer] Address [address] [facility] [address] [place] [address] Care Team Providers Care Process Development Chemist Name Role Phone Nahomy Davies MD Primary Care Pro vider Reason for Visit * Reason Comments Med Refill Encounter Details Date Type Department Care Team ([facility] st Contact Info) Description 11/11/2023 Refill [facility] [address] [place] [address] Nahomy Davies MD [address] [place] [address] Type 2 diabetes mellitus without complication, without long-term current use of insulin ([facility]) Social History Tobacco Use Types [...] complication, without long-term current use of insulin ([facility]) documented in this encounter Additional Health Concerns Assessment Noted Time PHQ-9 Depression Total Score: 0 04/23/19 23 9:18 AM EST documented as of this encounter Care Teams Process Development Chemist Relationship Specialty Start Date End Date Nahomy Davies MD [address] [place] [phone] PCP - General Internal Medicine 01/13/23 documented as of this encounter
[2024-10-04 11:35] LABS: Hemoglobin 11.3 g/dl (12.0-16.0); Mean Corpuscular HGB Conc 32.3 g/dl (31.0-35.0); Mean Corpuscular Hemoglobin 27.5 pg (27.0-33.0); Mean Corpuscular Volume 85.2 fL (80.0-98.0); Platelet Count 250 X10*3/uL (160-400); Red Blood Count 4.11 X10*6/uL (4.20-5.50); Red Cell Distribution Width 17.2 % (11.0-16.0); White Blood Count 6.6 X10*3/uL (4.8-10.8)
[2024-10-04 12:04] LABS: B Type Natriuretic Peptide 24 pg/mL (<100)
[2024-10-04 12:05] LABS: Creatinine Urine 111.46 mg/dL; Estimated Average Glucose 157 mg/dL; Hemoglobin A1c % 7.1 % (<6.0); Microalbum/Creatinine Ratio Ur 27.8 ug/mg cr (<30)
[2024-10-04 12:07] LABS: Alanine Aminotransferase 17 U/L (0-31); Albumin Level 4.1 g/dL (3.5-5.0); Alkaline Phosphatase 106 U/L (39-117); Anion Gap 13 (12-20); Aspartate Amino Transferase 25 U/L (5-31); Bilirubin Total 0.5 mg/dL (0.0-1.0); Blood Urea Nitrogen 9 mg/dL (9-16); C Reactive Protein 0.68 mg/dL (< or = 0.50); Calcium 9.7 mg/dL (8.4-10.2); Carbon Dioxide 27 mmol/L (22-29); Chloride 108 mmol/L (96-108); Cholesterol 231 mg/dL (<200); Estimated Glomerular Filt Rate > 60; Glucose Random 171 mg/dL (60-115); HDL Cholesterol 42 mg/dL (>40); Iron 41 mcg/dL (30-160); LDL Cholesterol Calculated 147 mg/dL (<100); Percent Iron Saturation 13 % (15-50); Potassium 4.1 mmol/L (3.3-5.1); Sodium 144 mmol/L (135-145); Total Iron Binding Capacity 305 mcg/dL (228-428); Total Protein 7.3 g/dL (6.5-8.0); Triglycerides 210 mg/dL (<150); Unsaturated Iron Binding 264 ug/dL
[2024-10-04 12:10] LABS: Ferritin 11 ng/mL (10-250); Free T4 (Free Thyroxine) 1.11 ng/dL (0.71-1.85); Thyroid Stimulating Hormone 0.65 uIU/mL (0.32-4.0); Vitamin D 25-OH Total 69.8 ng/mL (>30)
[2024-10-04 12:15] LABS: Erythrocyte Sedimentation Rate 22 MM/HR (0-20)
[2024-10-04 12:40] LABS: Folate 14.4 ng/mL (> or = 4.0); Vitamin B12 869 pg/mL (200-900)
== END 2024-10-04 09:11 | disposition home or self-care (01) ==
LOC: HO.HHCL 09:10
PROVIDERS: PCP Student in an Organized Health Care Education/Training Program; Visit Provider Student in an Organized Health Care Education/Training Program
DX: Z00.00 Encounter for general adult medical examination without abnormal findings (principal); R06.02 Shortness of breath; R51.9 Headache, unspecified
CPT/HCPCS: 36415; 80053; 80061; 82043; 82306; 82570; 82607; 82728; 82746; 83036; 83540; 83880; 84439; 84443; 85027; 85652; 86140

== ENCOUNTER 2024-10-09 14:31 | Outpatient (AMB) | payer OTHER, SELFPAY ==
--- NOTE | 2024-10-09 14:47 | MHC.OFFVIS ---
Vital Signs 10/09/24 14:53 Height 5 ft 3 in Weight 205 lb 7.533 oz BMI 36.4 BP 138/62 Blood Pressure Location Rt brachial Position Sitting Pulse 72 Pulse Source Pulse Oximeter Pulse Oximetry (%) 96 Oxygen Delivery Method Room Air Intake Visit Reasons: S/P EGD; Dr. Nye Intake Note: ESTABLISHED PATIENT for mgmt of GERD + Constipation. S/P EGD. Chief Complaint; Pt denies any new sx, concerns, or changes since last visit. Program Proposals Coordinator Required: Yes Program Proposals Coordinator Services: Program Proposals Coordinator Present Program Proposals Coordinator Name: Karla [id number] + [facility] [place] Information Interpreted: non-clinical & clinical Accompanied by: Family/Other Allergies lisinopril Allergy (Intermediate, Verified 10/09/24 14:47) itching Penicillins Allergy (Intermediate, Verified 10/09/24 14:47) rash/hives black pepper Allergy (Mild, Verified 10/09/24 14:47) Unknown fluticasone (From Flonase) Allergy (Mild, Verified 10/09/24 14:47) Unknown HPI HPI S/P EGD; Dr. Nye: Details: LAST VISIT: Tubular adenoma of colon Chronic constipation GERD (gastroesophageal reflux disease) Benign gastric polyp Dysphagia Plan Patient will continue taking omeprazole daily. Avoid dietary triggers and late night snacking. What to expect before during and after procedure discussed with patient. Continue taking Senokot daily.. Patient will be seen after the procedure, sooner on as needed basis. She is agreeable to this plan and verbalizes understanding of instructions. She was given the opportunity to ask questions and all questions answered. ENDOSCOPY: Findings: Larynx: Normal Esophagus: GE junction at 37 cms. No esophagitis and Zheng's. Mildly tortuous esophagus with increased tertiary contractions Empiric esophageal balloon dilation was of distal esophagus was performed with a 20 mm (60 F) CRE balloon x 60 seconds Empiric esophageal balloon dilation was of proximal esophagus was performed with an 18 mm (54 F) CRE balloon x 60 seconds Stomach: Three 8 10 10 mm benign appearing polyps in the gastric body and fundus - removed with a hot snare. Three 8 10 10 mm benign appearing polyps in the gastric body and fundus - removed with a cold biopsy .Moderate diffuse gastric erythema - mapping biopsies were obtained from the gastric body and antrum. Grade 2 flap valve on retroflexed examination of the cardia. Duodenum: Normal bulb and descending duodenum Intervention: Biopsies and esophageal balloon dilation as noted above Impression and Post Procedure Diagnosis: Plan: Repeat EGD in 3 years for follow-up of gastric intestinal metaplasia and hyperplastic polyps PATHOLOGY: Diagnosis A. Stomach, antrum, lesser curve, biopsy: Gastric antral mucosa with reactive gastropathy and intestinal metaplasia (complete); negative for Helicobacter pylori and dysplasia. B. Stomach, antrum greater curvature, biopsy: Gastric antral mucosa with reactive gastropathy and intestinal metaplasia (complete); negative for Helicobacter pylori and dysplasia. C. Stomach, incisura, biopsy: Gastric antral mucosa with mild chronic inactive gastritis; negative for Helicobacter pylori, intestinal metaplasia and dysplasia. D. Stomach, body greater curvature, biopsy: Gastric body mucosa with glandular atrophy, chronic gastritis and intestinal metaplasia; negative for Helicobacter pylori and dysplasia (see comment). E. Stomach, body lesser curvature, biopsy: Gastric body mucosa with glandular atrophy, chronic gastritis and intestinal metaplasia; negative for Helicobacter pylori and dysplasia (see comment). F. Stomach, polyps, biopsy: Hyperplastic gastric polyp with focal intestinal metaplasia; negative for Helicobacter pylori and dysplasia. 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 Clinical and serological correlation is advised TODAY'S VISIT: Patient is here today for follow-up and to discuss upper endoscopy results and biopsies. Results and biopsies discussed with patient. Three years recommendation was made. Patient reports trouble swallowing for day or 2 after procedure. Patient reports that she has been doing well since. Reports omeprazole works for her. Denies dyspepsia, dysphagia or odynophagia. Denies melena, hematochezia, unintentional weight loss or ribbon like stools. Patient reports that she was placed on prednisone for skin infection on her scalp. She has to be on it till October 29. Patient reports that her blood sugars has been elevated. She will try to call endocrinology to see if they can adjust her insulin. [facility] Medical History Tubular adenoma of colon Chronic restrictive lung disease Insomnia On beta anish at home History of COVID-19 Asthma Chronic constipation Broken arm CAD (coronary artery disease) HTN (hypertension) Hyperlipidemia Diabetes mellitus Dyspnea Dysphagia Non-toxic multinodular goiter Hypothyroidism Surgical History H/O thyroidectomy History of surgery Hx of elbow surgery History of surgery on arm Hx of cholecystectomy History of partial hysterectomy Hx of cataract surgery History of tubal ligation Hx of tonsillectomy History of carpal tunnel release Hx of colonoscopy Family History Father Throat cancer Heart disease CVD (cardiovascular disease) Mother Stomach cancer Type 2 diabetes mellitus Arthritis of knee Hypertension Social History Household Members: None Household Members Other:: self Housing: Apartment Are you a primary memory care director to a significant other at home: No Do you presently have visiting nurse or other home services: No Alcohol intake: never Patient Tobacco Use Status: Never used Tobacco Second Hand Smoke Exposure: No service: No Current occupational status: retired Current occupation: right handed Review of Systems Const Denies weight gain and Denies weight loss ENT Reports no additional complaints, Denies dysphagia and Denies odynophagia Card Reports no additional complaints Resp Reports no additional complaints GI Denies abdominal pain, Denies belching, Denies melena, Denies bloating, Denies change in bowel habits, Denies dysphagia, Denies excessive flatus, Denies dyspepsia, Denies heartburn, Denies diarrhea, Denies loose stools, Denies nausea, Denies odynophagia and Denies vomiting Musc Reports no additional complaints Neuro Reports no additional complaints Psych Reports no additional complaints Endo Reports no additional complaints Physical Exam Vital Signs: Last Vital Signs Pulse 72 10/09/24 14:53 BP 138/62 10/09/24 14:53 Pulse Ox 96 10/09/24 14:53 Oxygen Delivery Method Room Air 10/09/24 14:53 BMI result Body Mass Index 36.4 Const General: healthy appearing and no acute distress Nutritional Appearance: obese Orientation/consciousness: patient oriented x3 Resp Effort & Inspection: normal respiratory effort, able to speak in complete sentences, no tracheal deviation and symmetric chest movement Auscultation: clear to auscultation bilaterally Cardio Rate: regular rate GI Inspection: Yes normal to inspection, No distended and Yes obesity Palpation (GI): Soft to palpation, not firm, nontender and No hepatosplenomegaly present Auscultation: normal bowel sounds General: Yes no CVA tenderness Back/Spine/Pelvis Back: no CVA tenderness Skin General skin exam: elasticity normal, turgor normal and dry skin Neuro General: patient oriented x3 Psych Appearance: grossly normal Mental Status: mental status grossly normal Assessment & Plan Assessment & Plan (1) Chronic constipation: Code(s): K59.09 - Other constipation Category: Medical (2) Gastroesophageal reflux disease: Code(s): K21.9 - Gastro-esophageal reflux disease without esophagitis Qualifiers: Esophagitis presence: without esophagitis Qualified Code(s): K21.9 - Gastro-esophageal reflux disease without esophagitis (3) Benign gastric polyp: Code(s): K31.7 - Polyp of stomach and duodenum (4) Dysphagia: Code(s): R13.10 - Dysphagia, unspecified Qualifiers: Dysphagia type: oropharyngeal phase Qualified Code(s): R13.12 - Dysphagia, oropharyngeal phase Plan Continue omeprazole daily. Avoid dietary triggers and late night snacking. Patient will speak to endocrinology regarding her blood sugars. Patient reports that there is times when her blood sugars are in 300's. Patient currently is on prednisone. States that she has to be on it till the 29 of October. Patient will follow-up in the office in 2-3 months, sooner on as needed basis. She is agreeable to this plan and verbalizes understanding of instructions. She was given the opportunity to ask questions and all questions answered. Thank you for allowing me to participate in her care Coding Level of Care Code Est Pt Level 3 (40481) Diagnoses Chronic constipation K59.09 Gastroesophageal reflux disease without esophagitis K21.9 Esophagitis presence: without esophagitis Benign gastric polyp K31.7 Oropharyngeal dysphagia R13.12 Dysphagia type: oropharyngeal phase Time Spent (min) 30 Comment 20 minutes spent with patient and additional 10 minutes spent reviewing her records
[2024-10-09 14:53] VITALS: BP 138/62; PULSE 72; O2SAT 96; BMI 36.4
--- OUTSIDE RECORDS SUMMARY | 2024-10-09 15:38 | XMS_ITS | Encounter Summary ---
Author Organization [employer] Address [address] [facility] 7[address] [place] [address] Care Team Providers Care Bacteriology Professor Name Role Phone Nahomy Davies MD Primary Care Pro vider Reason for Visit * Reason Comments Med Refill Encounter Details Date Type Department Care Team ([facility] st Contact Info) Description 11/11/2023 Refill [facility] [address] [place] [address] Nahomy Davies MD [address] [place] [address] Type 2 diabetes mellitus without complication, without long-term current use of insulin ([facility]) Social History Tobacco Use Types Packs/Day Years [...] Care Team (Late st Contact Info) Description 10/19/2024 10:30 AM EDT Clinical Support [facility] [address] [place] [phone] 12/06/2024 10:30 AM EDT Office Visit [address] [address] Nahomy Davies MD [address] [place] [phone] documented as of this encounter Visit Diagnoses Diagnosis Type 2 diabetes mellitus without complication, without long-term current use of insulin ([facility]) documented in this encounter Additional Health Concerns Assessment Noted Time PHQ-9 Depression Total Score: 0 04/23/19 9:18 AM EST documented as of this encounter Care Teams Bacteriology Professor Relationship Specialty Start Date End Date Nahomy Davies MD [address] [place] [phone] PCP - General Internal Medicine 01/13/23 documented as of this encounter
== END 2024-10-09 15:31 | disposition home or self-care (01) ==
LOC: HO.HGI 14:32
PROVIDERS: PCP Student in an Organized Health Care Education/Training Program; Visit Provider Nurse Practitioner Family
DX: K59.09 Other constipation (principal); K21.9 Gastro-esophageal reflux disease without esophagitis; K31.7 Polyp of stomach and duodenum; R13.12 Dysphagia, oropharyngeal phase
CPT/HCPCS: 99213

== ENCOUNTER → 2024-10-09 14:31 | Outpatient (BNVA) | payer OTHER, SELFPAY | PROVIDERS: PCP Student in an Organized Health Care Education/Training Program; Visit Provider Nurse Practitioner Family | DX: K31.7 Polyp of stomach and duodenum (principal); R13.12 Dysphagia, oropharyngeal phase; K21.9 Gastro-esophageal reflux disease without esophagitis; K59.09 Other constipation | CPT/HCPCS: 99212 ==

== ENCOUNTER 2024-10-20 10:25 | Outpatient (REF) | payer OTHER, SELFPAY ==
--- NOTE | ~2024-10-20 | MR_ITS ---
EXAMINATION: MR BRAIN WITHOUT IV CONTRAST HISTORY: CHICAS TECHNIQUE: Sagittal T1, and axial T1, FLAIR, T2, gradient echo, and diffusion weighted MR images of the brain were obtained. COMPARISON: Comparison is made with prior examinations dated 09/02/2023 and 02/12/2019. FINDINGS: There is diffuse prominence of the ventricular system and cortical sulci, consistent with atrophy. Periventricular and subcortical white matter hyperintensities are noted on the FLAIR and T2-weighted images which are nonspecific, but often seen in the setting of small vessel ischemic disease. The pituitary is normal in size. The cerebellar tonsils are normally located. There is no mass effect or midline shift. No intra or extra-axial fluid collections are identified. There are no foci of restricted diffusion. Normal vascular flow voids are noted in the basilar and carotid arteries. The visualized paranasal sinuses are clear. There is a 1.5 cm ovoid mass in the right parotid gland which likely represents a lymph node. MR/MR head/brain wo con IMPRESSION: No acute intracranial abnormality. Electronically signed by: Grzegorz Borden MD 10/22/2024 07:27 AM EDT
== END 2024-10-20 10:26 | disposition home or self-care (01) ==
LOC: HO.MRI 10:25
PROVIDERS: PCP Student in an Organized Health Care Education/Training Program; Visit Provider Student in an Organized Health Care Education/Training Program
DX: R51.9 Headache, unspecified (principal)
CPT/HCPCS: 70551

== ENCOUNTER → 2024-10-20 10:35 | Outpatient (BNV) | payer OTHER, SELFPAY | PROVIDERS: PCP Student in an Organized Health Care Education/Training Program; Visit Provider Radiology Diagnostic Radiology | DX: R51.9 Headache, unspecified (principal) | CPT/HCPCS: 70551 ==

== ENCOUNTER 2024-11-02 10:31 | Outpatient (REF) | payer OTHER, SELFPAY ==
--- NOTE | ~2024-11-02 | US_ITS ---
EXAMINATION: US LOWER EXTREMITY VENOUS (REFLUX EXAM), BILATERAL CLINICAL INFORMATION: Lower extremity edema. COMPARISON: None. TECHNIQUE: Color flow triplex imaging and compression Doppler was performed to evaluate both the deep and the superficial systems bilaterally. To evaluate the superficial system, the examination was performed in the upright position. Color-flow Doppler ultrasound and compression ultrasound were utilized. In addition, maneuvers were utilized to demonstrate reflux. FINDINGS: 1. DEEP VENOUS ULTRASOUND OF THE RIGHT LOWER EXTREMITY: Common Femoral Vein: Compressible, normal respiratory variation and augmented flow. Femoral Vein: Compressible, normal color flow and augmentation. Popliteal Vein: Compressible, normal augmentation. Deep Reflux: There is no evidence of reflux in the deep system in either the common femoral vein, superficial femoral or the popliteal vein. There is no evidence of a Sorto's cyst. 2. SUPERFICIAL ULTRASOUND WITH DOPPLER OF RIGHT LOWER EXTREMITY: GREAT SAPHENOUS VEIN: Saphenofemoral Junction: 0.5 cm; Reflux: 0 ms Proximal Thigh: 0.4 cm; Reflux: 0 ms Mid Thigh: 0.2 cm; Reflux: 0 ms Distal Thigh: 0.2 cm; Reflux: 0 ms At Knee: 0.2 cm; Reflux: 0 ms Proximal Calf: Not identified. Mid Calf: 0.2 cm; Reflux: 0 ms Distal Calf: 0.3 cm; Reflux: 0 ms DUPLICATED MEDIAL GREAT SAPHENOUS VEIN: Diameter: None imaged Reflux: NA DUPLICATED LATERAL GREAT SAPHENOUS VEIN: Diameter: 0.2-0.3 cm. Reflux: NA SMALL SAPHENOUS VEIN: Saphenopopliteal Junction: 0.4 cm; Reflux: 0 ms Proximal: 0.2 cm; Reflux: 0 ms Distal: 0.3 cm; Reflux: 0 ms VEIN OF GIACOMINI: Size: NA Reflux: NA PERFORATORS: Location: Distal calf. Size: 0.3 cm. Reflux: NA VARICOSITIES: Location: None imaged. Size: NA Reflux: NA 3. DEEP VENOUS ULTRASOUND OF THE LEFT LOWER EXTREMITY: Common Femoral Vein: Compressible, normal respiratory variation and augmented flow. Femoral Vein: Compressible, normal color flow and augmentation. Popliteal Vein: Compressible, normal augmentation. Deep Reflux: There is no evidence of reflux in the deep system in either the common femoral vein, superficial femoral or the popliteal vein. There is no evidence of a Sorto's cyst. 4. SUPERFICIAL ULTRASOUND WITH DOPPLER OF LEFT LOWER EXTREMITY: GREAT SAPHENOUS VEIN: Saphenofemoral Junction: 0.6 cm; Reflux: 0 ms Proximal Thigh: 0.4 cm; Reflux: 0 ms Mid Thigh: 0.2 cm; Reflux: 0 ms Distal Thigh: 0.1 cm; Reflux: 0 ms At Knee: 0.2 cm; Reflux: 0 ms Proximal Calf: 0.2 cm; Reflux: 0 ms Mid Calf: 0.3 cm; Reflux: 0 ms Distal Calf: 0.2 cm; Reflux: 0 ms DUPLICATED MEDIAL GREAT SAPHENOUS VEIN: Diameter: None imaged Reflux: NA DUPLICATED LATERAL GREAT SAPHENOUS VEIN: Diameter: 0.2-0.3 cm. Reflux: NA SMALL SAPHENOUS VEIN: Saphenopopliteal Junction: 0.4 cm; Reflux: 0 ms Proximal: 0.3 cm; Reflux: 0 ms Distal: 0.2 cm; Reflux: 0 ms VEIN OF GIACOMINI: Size: NA Reflux: NA PERFORATORS: Location: Distal calf. Size: 0.3 cm. Reflux: NA VARICOSITIES: Location: None Imaged Size: NA Reflux: NA US/US venous insuf bilat IMPRESSION: Right: No venous insufficiency. Perforators without reflux in the distal calf. Chronic changes, distal calf, great saphenous vein. Left: No venous insufficiency. Perforators without reflux in the mid calf. Electronically signed by: Xander Hurt MD 11/02/2024 11:36 AM EDT
--- OUTSIDE RECORDS SUMMARY | 2024-11-02 10:42 | XMS_ITS | Encounter Summary ---
Author Organization [employer] Address [address] [facility] [address]t [place] [address] Care Team Providers Care Client Service Executive Name Role Phone Nahomy Davies MD Primary Care Pro vider Reason for Visit * Reason Comments Med Refill Encounter Details Date Type Department Care Team ([facility] st Contact Info) Description 11/11/2023 Refill [facility] [address] [place] [address] Nahomy Davies MD [address] [place] [address] Type 2 diabetes mellitus without complication, without long-term current use of insulin ([facility]) Social History Tobacco Use Types Packs/Day Years [...] Care Team (Late st Contact Info) Description 12/06/2024 10:30 AM EDT Office Visit [facility] [address] [place] [phone] Nahomy Davies MD [address] [place] [phone] 01/18/2025 9:15 AM EDT Office Visit [facility] [address] [place] [phone] Karrie Carlisle MD [address] [place] [address] [phone] documented as of this encounter Visit Diagnoses Diagnosis Type 2 diabetes mellitus without complication, without long-term current use of insulin ([facility]) documented in this encounter Additional Health Concerns Assessment Noted Time PHQ-9 Depression Total Score: 0 04/23/19 9:18 AM EST documented as of this encounter Care Teams Client Service Executive Relationship Specialty Start Date End Date Nahomy Davies MD [address] [place] [address] [phone] PCP - General Internal Medicine 01/13/23 documented as of this encounter
== END 2024-11-02 10:32 | disposition home or self-care (01) ==
LOC: HO.US 10:31
PROVIDERS: PCP Student in an Organized Health Care Education/Training Program; Visit Provider Student in an Organized Health Care Education/Training Program
DX: R60.0 Localized edema (principal)
CPT/HCPCS: 93970

== ENCOUNTER → 2024-11-02 10:33 | Outpatient (BNV) | payer OTHER, SELFPAY | PROVIDERS: PCP Student in an Organized Health Care Education/Training Program; Visit Provider Radiology Diagnostic Radiology | DX: R60.0 Localized edema (principal) | CPT/HCPCS: 93970 ==

== ENCOUNTER 2024-11-14 09:01 | Outpatient (REF) | payer OTHER, SELFPAY ==
--- NOTE | ~2024-11-14 | XR_ITS ---
EXAMINATION: XR LUMBOSACRAL SPINE CLINICAL INFORMATION: exacerbation of right LBP with right radiculopathy. COMPARISON: None available. TECHNIQUE: Three views of the lumbosacral spine. FINDINGS: There is a minimal levoconvex scoliosis, possibly positional. There is a normal lordosis. There are no fractures, compression deformities, or suspicious bone lesions. There is mild to moderate multilevel disc degeneration present, and facet degeneration spanning L3-S1. No subluxations of significance. The sacrum and SI joints appear normal. Soft tissues demonstrate early vascular calcifications. XR/XR lumbar spine 2-3V IMPRESSION: 1. No acute bony abnormalities of the lumbar spine. 2. Mild to moderate spondylosis. Electronically signed by: Jony Jama MD 11/14/2024 09:47 AM EDT
--- OUTSIDE RECORDS SUMMARY | 2024-11-14 09:17 | XMS_ITS | Encounter Summary ---
Author Organization [employer] Address [address] [facility] [address] [place] [address] Care Team Providers Care Services Manager Name Role Phone Nahomy Davies MD Primary Care Pro vider Reason for Visit * Reason Comments Med Refill Encounter Details Date Type Department Care Team ([facility] st Contact Info) Description 11/11/2023 Refill [facility] [address] [place] [address] Nahomy Davies MD [address] [place] [address] Type 2 diabetes mellitus without complication, without long-term current use of insulin ([facility]) Social History Tobacco Use [...] Description 12/06/2024 10:30 AM EDT Office Visit [facility] [address] [place] [phone] Nahomy Davies MD [address] [place] [phone] 01/18/2025 9:15 AM EDT Office Visit [facility] [address] [place] [phone] Karrie Carlisle MD [address] [place] [address] [phone] documented as of this encounter Visit Diagnoses Diagnosis Type 2 diabetes mellitus without complication, without long-term current use of insulin ([facility]) documented in this encounter Additional Health Concerns Assessment Noted Time PHQ-9 Depression Total Score: 0 04/23/19 9:18 AM EST documented as of this encounter Care Teams Services Manager Relationship Specialty Start Date End Date Nahomy Davies MD [address] [place] [address] [phone] PCP - General Internal Medicine 01/13/23 documented as of this encounter
== END 2024-11-14 09:02 | disposition home or self-care (01) ==
LOC: HO.HHCX 09:01
PROVIDERS: Visit Provider Emergency Medicine
DX: M54.41 Lumbago with sciatica, right side (principal); G89.29 Other chronic pain
CPT/HCPCS: 72100; 87086

== ENCOUNTER → 2024-11-14 09:02 | Outpatient (BNV) | payer OTHER, SELFPAY | PROVIDERS: Visit Provider Radiology Diagnostic Radiology | DX: M54.16 Radiculopathy, lumbar region (principal) | CPT/HCPCS: 72100 ==

== ENCOUNTER 2024-11-15 09:19 | Emergency (ER) | payer OTHER, SELFPAY ==
--- NOTE | ~2024-11-15 | CT_ITS ---
EXAMINATION: CT ABDOMEN PELVIS WITHOUT IV CONTRAST HISTORY: right flank pain COMPARISON: Comparison is made with the prior examination dated 01/20/2022. TECHNIQUE: CT scan of the abdomen and pelvis was performed without contrast using standard departmental protocol. Coronal and sagittal reformatted images were generated and reviewed. Oral contrast material was not administered per department protocol. This CT exam was performed with one or more of the following dose reduction techniques: automated exposure control, adjustment of the mA and/or kV according to patient size, use of iterative reconstruction technique. DLP: 673 mGy-cm FINDINGS: LOWER CHEST: Again seen is a subcentimeter subpleural nodule at the lateral aspect of the right lung base. There is no pleural effusion. CARDIOVASCULATURE: The heart is normal in size. There is no pericardial effusion. LIVER: The liver is normal in size and contour. The liver has an unremarkable unenhanced appearance. GALLBLADDER / BILE DUCTS: The gallbladder is surgically absent. There is no intra or extrahepatic biliary ductal dilatation. SPLEEN: The spleen is normal in size and has an unremarkable unenhanced appearance. PANCREAS: The pancreas has an unremarkable unenhanced appearance. ADRENAL GLANDS: Unremarkable. KIDNEYS/RETROPERITONEUM: No renal or ureteral calculi are identified. There is no hydronephrosis or hydroureter. There is a 3.4 cm cyst at the upper pole of the right kidney and a 2.8 cm cyst at the upper pole of the left kidney. An additional 1.3 cm cyst is seen at the lower pole of the left kidney.. LYMPH NODES: No retroperitoneal lymphadenopathy is identified in the abdomen or pelvis. VASCULATURE: The abdominal aorta is normal in caliber. MESENTERY/PERITONEUM: No free fluid. No masses. There is no free intraperitoneal gas. STOMACH: The stomach is collapsed, limiting evaluation. SMALL BOWEL: The small bowel is normal in caliber. COLON: There is diverticulosis of the sigmoid colon without evidence of diverticulitis. APPENDIX: Normal. URINARY BLADDER/PELVIC ORGANS: The urinary bladder is unremarkable. The patient is status post hysterectomy. BONES / SOFT TISSUES: No suspicious bony or soft tissue abnormalities. CT/CT abdomen pelvis wo IV con IMPRESSION: 1. No evidence of nephrolithiasis or ureteral obstruction. 2. Sigmoid diverticulosis without evidence of diverticulitis. Electronically signed by: Grzegorz Borden MD 11/15/2024 11:53 AM EDT RP
[2024-11-15 09:26] VITALS: BP 150/49; BP 178/92; PULSE 59; PULSE 65; RESP 20; TEMP 36.5; O2SAT 98; O2SAT 99; BMI 33.2
--- NOTE | 2024-11-15 09:30 | ED.GENADULT ---
HPI - General Adult General Chief complaint: Extremity Injury, Lower Stated complaint: ?STROKE,L WEAK,FADIA,LKWT NOT CLEAR,-THINNER Time Seen by Provider: 11/15/24 09:30 History of Present Illness ED Provider: Mary Anne WALTON narrative: the patient is a 79-year-old woman who seems to have a history of right-sided sciatica. She says that she takes acetaminophen and Lyrica. She was apparently seen yesterday at some kind of back specialist or pain specialist office because of her right-sided sciatic symptoms. She was told that she might be a candidate for an injection to help manage her pain. This morning the pain in her right lower back radiating down her right leg was worse than it has been recently and her family thought that she was having trouble walking and so they called 911. when paramedics arrived they found the patient very difficult to evaluate in were concerned that her symptoms could potentially be some kind of a stroke syndrome. However on arrival in the emergency room it seemed apparent that her primary problem was a worsening of her right lower back and hip and right leg pain. According to the patient and according to the family there does not seem to be any change in mental status, change in speech, facial asymmetry, or any symptoms or changes in the arms. She has difficulty moving her right leg because of pain. No fever, sweats, chills. No loss of bowel or bladder control. No chest pain or shortness of breath. Related Data Home Medications ?Medication ?Instructions ?Recorded ?Confirmed blood sugar diagnostic (FreeStyle #10 ea 02/12/20 12/09/23 Test strips) lancets 28 gauge (FreeStyle #100 ea 02/12/20 12/09/23 Lancets) metoprolol succinate 50 mg 50 mg PO DAILY 02/12/20 05/21/24 tablet,extended release 24 hr pregabalin 100 mg capsule (Lyrica) 100 mg PO BID 02/12/20 05/21/24 aspirin 81 mg tablet,delayed 81 mg PO DAILY 03/18/20 05/21/24 release pen needle, diabetic 31 gauge x #1,200 ea 06/23/21 12/09/23/16 (Unifine Pentips) blood pressure test kit-large #1 ea 07/12/23 12/09/23 flash glucose sensor (FreeStyle #1 ea 09/30/23 12/09/23 Anthony 2 Sensor kit) alcohol swabs (Alcohol Prep Pads) pad topical 12/27/23 05/21/24 insulin glargine 100 unit/mL (3 18 unit subcut BEDTIME 12/27/23 05/21/24 mL) subcutaneous pen (Lantus Solostar U-100 Insulin) lidocaine 5 % topical patch 1 patch topical DAILY 12/27/23 05/21/24 diazepam 2 mg tablet 2 mg PO BEDTIME PRN 06/20/24 glipizide 2.5 mg tablet 2.5 mg PO DAILY 06/20/24 glucose 3.75 gram chewable tablet g PO PRN 06/20/24 albuterol sulfate 90 mcg/actuation inhalation 09/05/24 aerosol inhaler losartan 50 mg-hydrochlorothiazide 1 tab PO DAILY 09/05/24 12.5 mg tablet metformin 500 mg tablet,extended 1,000 mg PO BID 09/05/24 release 24 hr sitagliptin phosphate 50 mg tablet 50 mg PO DAILY 09/07/24 09/07/24 (Januvia) Previous Rx's ?Medication ?Instructions ?Recorded Levoxyl 75 mcg tablet 75 mcg PO DAILY #90 tabs 12/08/21 (levothyroxine) omeprazole 20 mg capsule,delayed 20 mg PO DAILY #90 caps 06/20/24 release acetaminophen 500 mg capsule 1,000 mg (2 x 500 mg) PO Q8H PRN 11/15/24 fever or pain #14 caps ibuprofen 400 mg tablet 400 mg PO Q8H PRN pain #14 tabs 11/15/24 Allergies Allergy/AdvReac Type Severity Reaction Status Date / Time lisinopril Allergy Intermediate itching Verified 11/15/24 09:28 Penicillins Allergy Intermediate rash/hives Verified 11/15/24 09:28 black pepper Allergy Mild Unknown Verified 11/15/24 09:28 fluticasone (From Flonase) Allergy Mild Unknown Verified 11/15/24 09:28 Review of Systems Review of Systems: Yes all other systems are reviewed and are negative [facility] Past Medical History Medical History Tubular adenoma of colon Chronic restrictive lung disease Insomnia On beta anish at home History of COVID-19 Asthma Chronic constipation Broken arm CAD (coronary artery disease) HTN (hypertension) Hyperlipidemia Diabetes mellitus Dyspnea Dysphagia Non-toxic multinodular goiter Hypothyroidism Surgical History H/O thyroidectomy History of surgery Hx of elbow surgery History of surgery on arm Hx of cholecystectomy History of partial hysterectomy Hx of cataract surgery History of tubal ligation Hx of tonsillectomy History of carpal tunnel release Hx of colonoscopy Family History Family History Father Throat cancer Heart disease CVD (cardiovascular disease) Mother Stomach cancer Type 2 diabetes mellitus Arthritis of knee Hypertension Social History Social History Household Members: None Household Members Other:: self Housing: Apartment Are you a primary pediatric care coordinator to a significant other at home: No Do you presently have visiting nurse or other home services: No Alcohol intake: never Patient Tobacco Use Status: Never used Tobacco Second Hand Smoke Exposure: No Advance Directives Date on File: 11/15/24 service: No Current occupational status: retired Current occupation: right handed Physical Exam ED Vital Signs: Vital Signs - 24 hr 11/15/24 09:26 11/15/24 12:29 11/15/24 15:38 Temperature 97.7 F 97.8 F 97.6 F Pulse Rate 59 66 70 Respiratory Rate 20 15 18 Blood Pressure 150/49 H 127/50 L 138/50 L Pulse Oximetry 99 98 92 Oxygen Delivery Method Room Air Room Air Room Air BMI result Body Mass Index 33.2 Const Other: The patient is a chronically ill-appearing 79-year-old woman who was awake and alert and said that she was having a lot of pain in her right lower back when interviewed with a lyric writer. She is not appear acutely toxic and she had no obvious neurological deficit. HENMT Other: Face was symmetrical. Mucous membranes are moist. Tongue is midline. Eyes Other: Pupils are round equal, conjunctivae are clear, extraocular movements intact Neck Neck: Yes normal visual inspection and Yes full ROM Resp Effort & Inspection: normal respiratory effort Auscultation: clear to auscultation bilaterally Cardio Rate: regular rate Rhythm: regular rhythm Heart sounds: S1 normal heart sound present and S2 normal heart sound present GI Other: Abdomen is soft and nontender Back/Spine/Pelvis Other: patient has a lot of tenderness with palpation in the right flank area and generally around the right hip. Skin Other: The skin is dry and unremarkable Neuro Other: The patient is awake and alert and seems oriented and appropriate. Pupils are round equal, eye movements are intact, face is symmetrical, tongue is midline, speech is without aphasia or dysarthria. She moves her upper extremities normally without pronator drift. She can move the left leg easily. She has pain with manipulation and use of the right leg but she is able to move the leg with reasonable strength accounting for her discomfort. My overall impression is that the patient does not have a focal neurological deficit. Extrem Other: No peripheral edema. Both feet are well perfused. I can move the left leg easily at the hips, the knees, and the ankle. I can move the right leg as well but manipulation of the right hip causes exacerbation of the patient's back pain. Medications Administered Discontinued Medications Generic Name Dose Route Start Last Admin Trade Name Freq PRN Reason Stop Dose Admin Acetaminophen 1,000 mg in 100 mls @ 400 mls/hr 11/15/24 10:58 11/15/24 11:27 Ofirmev IV 11/15/24 11:12 Infused ONCE ONE Infusion Ketorolac Tromethamine 10 mg 11/15/24 10:58 11/15/24 11:12 Ketorolac Tromethamine 15 Mg/Ml Vial IVPUSH 11/15/24 10:59 10 mg ONCE ONE Administration Pregabalin 150 mg 11/15/24 12:35 11/15/24 13:38 Pregabalin 150 Mg Capsule PO 11/15/24 12:36 150 mg ONCE ONE Administration Medical Decision Making Medical Decision Making [facility] Narrative: The patient is a frail and chronically ill 79-year-old woman with multiple medical problems including a previous stroke who lives alone and who has been having problems with right lower back pain. She takes Tylenol and pregabalin at home. This morning her pain seemed worse than usual. The family describes a visit to some kind of specialist yesterday who proposed some kind of injections. This was for an evaluation of the same pain that she is having now only today the pain is worse. I do not appreciate any red flags with regard to back pain. No bowel or bladder control complaints. Basic labs were done which were unremarkable. Her kidney function is good. She was given a dose of IV ketorolac and also a dose of IV acetaminophen. A noncontrast CT of the abdomen and pelvis was done that shows no kidney stone and also no significant alternative pathology for this worsening pain. She was given a dose of pregabalin as well and the physical therapy evaluation was ordered. The physical therapist saw the patient and they recommended short-term rehab. This was offered to the patient with her daughter at the bedside. Case management was also involved. The patient does not wish to go to inpatient setting for rehab. She would like to go home. Referrals will be made for physical therapy in the home. She should follow up with her PCP and the specialist she saw yesterday as well. I advised her that it would be reasonable to add occasional ibuprofen to her pain regimen as well. Lab Data 11/15/24 09:33 11/15/24 09:36 Labs: Lab Results 11/15/24 11/15/24 Range/Units 09:33 09:36 WBC 5.6 (4.8-10.8) X10*3/uL RBC 3.97 L (4.20-5.50) X10*6/uL Hgb 11.0 L (12.0-16.0) g/dl Hct 32.8 L (37.0-47.0) % MCV 82.6 (80.0-98.0) fL MCH 27.7 (27.0-33.0) pg MCHC 33.5 (31.0-35.0) g/dl RDW 16.5 H (11.0-16.0) % Plt Count 241 (160-400) X10*3/uL MPV 9.3 L (9.4-12.3) fL Immature Gran % (Auto) 0.4 (0.0-0.4) % Neut % (Auto) 28.6 L (45-73) % Lymph % (Auto) 51.6 H (20-40) % [place] % (Auto) 15.5 H (2-11) % Eos % (Auto) 3.0 (0-4) % Baso % (Auto) 0.9 (0-2) % Lymph # (Auto) 2.9 (1.2-4.9) X10*3/uL [place] # (Auto) 0.9 (0.1-1.2) X10*3/uL Eos # (Auto) 0.2 (0.0-0.4) X10*3/uL Baso # (Auto) 0.1 (0.0-0.2) X10*3/uL Abs Immat Gran (auto) 0.02 (0.00-0.03) X10*3/uL Absolute Neuts (auto) 1.6 L (2.0-8.3) x10*3/uL Absolute Nucleated RBC 0.000 (0.0-0.012) X10*3/uL Nucleated RBC % (auto) 0.0 (0.0-0.2) /100WBC PT 11.7 (10.9-12.4) SEC INR 1.0 (0.9-1.1) Sodium 143 (135-145) mmol/L Potassium 4.2 (3.3-5.1) mmol/L Chloride 110 H (96-108) mmol/L Carbon Dioxide 26 (22-29) mmol/L Anion Gap 11 L (12-20) BUN 8 L (9-16) mg/dL Creatinine 0.59 (0.5-1.4) mg/dL Estim Creat Clear Calc 81.2 Estimated GFR > 60 Random Glucose 102 (60-115) mg/dL Calcium 9.6 (8.4-10.2) mg/dL Total Bilirubin 0.4 (0.0-1.0) mg/dL AST 37 H (5-31) U/L ALT 23 (0-31) U/L Alkaline Phosphatase 113 (39-117) U/L Total Protein 6.3 L (6.5-8.0) g/dL Albumin 3.6 (3.5-5.0) g/dL Discharge Plan Discharge Clinical Impression: Right-sided low back pain with right-sided sciatica Patient Disposition: Xfer Other Transfer Details: Home with services Instructions: Acute Low Back Pain (ED) Additional Instructions: I think you are having an exacerbation of your sciatica. I have sent a prescription for additional acetaminophen to use 3 times a day. I have also sent a prescription for ibuprofen which you may use 3 times a day as well. Continue the Lyrica as you has been prescribed. Please continue your plans to follow up with the doctor who recommended possible injections for your pain. The nurse outreach case manager should be making a referral for physical therapy at home. Please follow up soon with your regular doctor's office as well. Return to the emergency room if significantly worse. Prescriptions: New ibuprofen 400 mg tablet 400 mg PO Q8H PRN (Reason: pain) Qty: 14 0RF acetaminophen 500 mg capsule 1,000 mg PO Q8H PRN (Reason: fever or pain) Qty: 14 0RF No Action levothyroxine [Levoxyl] 75 mcg tablet 75 mcg PO DAILY Qty: 90 3RF Januvia 50 mg tablet 50 mg PO DAILY pregabalin [Lyrica] 100 mg capsule 100 mg PO BID metoprolol succinate 50 mg tablet extended release 24 hr 50 mg PO DAILY (DME) lancets [FreeStyle Lancets] 28 gauge misc See Rx Instructions .ROUTE .MEDSUPPLY Qty: 100 Rx Instructions: As directed (DME) FreeStyle Test Strip See Rx Instructions .ROUTE .MEDSUPPLY Qty: 10 Rx Instructions: As directed Lantus Solostar U-100 Insulin 100 unit/mL (3 mL) insulin pen 18 unit subcut BEDTIME aspirin 81 mg tablet,delayed release (DR/EC) 81 mg PO DAILY (DME) pen needle, diabetic [Unifine Pentips] 31 gauge x 5/16 needle See Rx Instructions .ROUTE .MEDSUPPLY Qty: 1200 Rx Instructions: As directed (DME) FreeStyle Anthony 2 Sensor Kit See Rx Instructions .ROUTE .MEDSUPPLY Qty: 1 Rx Instructions: As directed (DME) blood pressure test kit-large Kit See Rx Instructions .ROUTE BID Qty: 1 Rx Instructions: As directed alcohol swabs [Alcohol Prep Pads] Pads, Medicated topical lidocaine 5 % adhesive patch,medicated 1 patch topical DAILY glucose 3.75 gram tablet,chewable PO PRN diazepam 2 mg tablet 2 mg PO BEDTIME PRN glipizide 2.5 mg tablet 2.5 mg PO DAILY omeprazole 20 mg capsule,delayed release(DR/EC) 20 mg PO DAILY Qty: 90 2RF albuterol sulfate 90 mcg/actuation HFA aerosol inhaler inhalation metformin 500 mg tablet extended release 24 hr 1,000 mg PO BID losartan-hydrochlorothiazide 50-12.5 mg tablet 1 tab PO DAILY Discharge Date/Time: 11/15/24 15:52 Print Language: Macanese
[2024-11-15 09:41] LABS: MANUAL DIFF FLAG NO
[2024-11-15 09:43] LABS: Hematocrit 32.8 % (37.0-47.0); Hemoglobin 11.0 g/dl (12.0-16.0); Imm Gran Abs Auto 0.02 X10*3/uL (0.00-0.03); Imm Gran Pct Auto 0.4 % (0.0-0.4); Lymphocytes Absolute Auto 2.9 X10*3/uL (1.2-4.9); Mean Corpuscular HGB Conc 33.5 g/dl (31.0-35.0); Mean Corpuscular Hemoglobin 27.7 pg (27.0-33.0); Mean Corpuscular Volume 82.6 fL (80.0-98.0); NRBC Abs Auto 0.000 X10*3/uL (0.0-0.012); NRBC Pct Auto 0.0 /100WBC (0.0-0.2); Platelet Count 241 X10*3/uL (160-400); Red Blood Count 3.97 X10*6/uL (4.20-5.50); White Blood Count 5.6 X10*3/uL (4.8-10.8)
[2024-11-15 09:48] LABS: INTERNATIONAL NORM RATIO 1.0 (0.9-1.1); Prothrombin Time 11.7 SEC (10.9-12.4)
[2024-11-15 10:04] LABS: Alanine Aminotransferase 23 U/L (0-31); Albumin Level 3.6 g/dL (3.5-5.0); Alkaline Phosphatase 113 U/L (39-117); Anion Gap 11 (12-20); Aspartate Amino Transferase 37 U/L (5-31); Blood Urea Nitrogen 8 mg/dL (9-16); Calcium 9.6 mg/dL (8.4-10.2); Carbon Dioxide 26 mmol/L (22-29); Chloride 110 mmol/L (96-108); Creatinine Clr Calc Pharmacy 81.2; Estimated Glomerular Filt Rate > 60; Potassium 4.2 mmol/L (3.3-5.1); Sodium 143 mmol/L (135-145); Total Protein 6.3 g/dL (6.5-8.0)
--- OUTSIDE RECORDS SUMMARY | 2024-11-15 10:28 | XMS_ITS | Encounter Summary ---
Author Organization [facility] [facility] Address [address] [place] [address] Care Team Providers Care Plycor Operator Name Role Phone Nahomy Davies MD Primary Care Pro vider Reason for Visit * Reason Comments Med Refill Encounter Details Date Type Department Care Team ([facility] st Contact Info) Description 11/11/2023 Refill [facility] [address] [place] [address] Nahomy Davies MD [address] [place] [address] Type 2 diabetes mellitus without complication, without long-term current use of insulin ([facility]) Social History Tobacco Use Types [...] Description 12/06/2024 10:30 AM EDT Office Visit [facility] [address] [place] [id number] Nahomy Davies MD [address] [place] [phone] 01/18/2025 9:15 AM EDT Office Visit [facility] [address] [place] [id number] Karrie Carlisle MD [address] [place] [address] [phone] documented as of this encounter Visit Diagnoses Diagnosis Type 2 diabetes mellitus without complication, without long-term current use of insulin ([facility]) documented in this encounter Additional Health Concerns Assessment Noted Time PHQ-9 Depression Total Score: 0 04/23/19 9:18 AM EST documented as of this encounter Care Teams Plycor Operator Relationship Specialty Start Date End Date Nahomy Davies MD [address] [place] [address] [phone] PCP - General Internal Medicine 01/13/23 documented as of this encounter
[2024-11-15 12:29] VITALS: BP 127/50; PULSE 66; RESP 15; TEMP 36.6; O2SAT 98
[2024-11-15 15:38] VITALS: BP 138/50; PULSE 70; RESP 18; TEMP 36.4; O2SAT 92
--- NOTE | 2024-11-15 16:39 | MHC.CM.ED ---
CM met with patient and daughter to discuss discharge planning and HCP. supervisor correspondence section used as patient is Polish speaking. Pt with c/o sciatica pain. Medical work-up negative. PT is recommending STR. Pt and daughter adamantly refuse Requesting home PT with [facility]. Pt lives alone. Daughter is her COPPERSMITH HELPER. 22.5 hrs/wk from [employer]. Pt uses a rollator at home. Address, PCP and insurance verified. HCP reviewed, completed and signed. HCP/daughter #1 Trena Miranda ([phone]) and HCP#2/daughter Windy Brennan ([phone]). Referral to [facility]. F2F uploaded. Will see patient over the weekend. Family aware. D/C home. Family arranging transport home.
== END 2024-11-15 15:52 | disposition other institution (70) ==
PROVIDERS: Emergency Provider Emergency Medicine; PCP Student in an Organized Health Care Education/Training Program
DX: M54.31 Sciatica, right side (principal); M54.9 Dorsalgia, unspecified; I10 Essential (primary) hypertension; Z86.73 Personal history of transient ischemic attack (TIA), and cerebral infarction without residual deficits; Z79.899 Other long term (current) drug therapy
CPT/HCPCS: 36415; 74176; 80053; 85025; 85610; 96374; 96375; 97161; 99283; 99284; J0131; J1885

== ENCOUNTER → 2024-11-15 10:59 | Outpatient (BNV) | payer OTHER, SELFPAY | PROVIDERS: Emergency Provider Emergency Medicine; PCP Student in an Organized Health Care Education/Training Program; Visit Provider Radiology Diagnostic Radiology | DX: N28.1 Cyst of kidney, acquired (principal) | CPT/HCPCS: 74176 ==

== ENCOUNTER 2024-11-27 10:10 | Outpatient (AMB) | payer OTHER, SELFPAY ==
[2024-11-27 10:22] VITALS: BP 124/52; PULSE 71; BMI 34.4
--- NOTE | 2024-11-27 10:22 | A.OFFVIS_ITS ---
Vital Signs 11/27/24 10:22 Height 5 ft 3 in Weight 194 lb 7.163 oz BMI 34.4 BP 124/52 L Blood Pressure Location Rt brachial Position Sitting Pulse 71 Pulse Source Pulse Oximeter Intake Visit Reasons: 6m follow up Substance Abuse Rn Required: No Machine Pecan Gatherer: Machine Pecan Gatherer Present Allergies lisinopril Allergy (Intermediate, Verified 11/27/24 10:25) itching Penicillins Allergy (Intermediate, Verified 11/27/24 10:25) rash/hives black pepper Allergy (Mild, Verified 11/27/24 10:25) Unknown fluticasone (From Flonase) Allergy (Mild, Verified 11/27/24 10:25) Unknown Medication List - Last Reconciled 11/27/24 by ELMER Longoria acetaminophen 1,000 mg (2 x 500 mg) PO Q8H PRN albuterol sulfate 90 mcg/actuation inhalation alcohol swabs (Alcohol Prep Pads) pad topical aspirin 81 mg PO DAILY atorvastatin 40 mg PO DAILY blood pressure test kit-large As directed blood sugar diagnostic (FreeStyle Test strips) As directed diazepam 2 mg PO BEDTIME PRN flash glucose sensor (FreeStyle Anthony 2 Sensor kit) As directed glipizide 2.5 mg PO DAILY glucose grams PO PRN ibuprofen 400 mg PO Q8H PRN insulin glargine (Lantus Solostar U-100 Insulin) 18 units subcut BEDTIME lancets (FreeStyle Lancets) As directed Levoxyl (levothyroxine) 75 mcg PO DAILY NS lidocaine 5% 1 patch topical DAILY losartan-hydrochlorothiazide 50-12.5 mg 1 tab PO DAILY metformin ER 1,000 mg PO BID metoprolol succinate ER 50 mg PO DAILY omeprazole 20 mg PO DAILY pen needle, diabetic (Unifine Pentips) As directed pregabalin (Lyrica) 100 mg PO BID primidone mg PO sitagliptin phosphate (Januvia) 50 mg PO DAILY HPI HPI 6m follow up: Details: Arlette is a 79-year-old female with past medical history of hypertension, hyperlipidemia, diabetes, presume CAD, abnormal nuclear stress test who was admitted to [facility] August 2023 with dysarthria and left-sided heaviness. She was suspected to have possible TIA, CVA was ruled out. Her symptoms did resolve. A Holter monitor was done, showing no AFib. She now presents for follow-up. Today she reports that she has been doing well since her last visit in May 2024. She has not had any weakness to her arms and legs, no speech disturbances, no visual changes. She uses a cane for balance. She is mostly sedentary. She has no chest discomfort at rest or with exertion. No shortness of breath, PND, orthopnea or edema. No lightheadedness, presyncope, syncope, falls. Her primary concern today is of sciatica which limits her ability to ambulate. She uses a walker. Taking all meds as directed. Her ENGINEERING TECHNICAL ANALYST is present. [facility] Medical History Tubular adenoma of colon Chronic restrictive lung disease Insomnia On beta anish at home History of COVID-19 Asthma Chronic constipation Broken arm CAD (coronary artery disease) HTN (hypertension) Hyperlipidemia Diabetes mellitus Dyspnea Dysphagia Non-toxic multinodular goiter Hypothyroidism Surgical History H/O thyroidectomy History of surgery Hx of elbow surgery History of surgery on arm Hx of cholecystectomy History of partial hysterectomy Hx of cataract surgery History of tubal ligation Hx of tonsillectomy History of carpal tunnel release Hx of colonoscopy Family History Father Throat cancer Heart disease CVD (cardiovascular disease) Mother Stomach cancer Type 2 diabetes mellitus Arthritis of knee Hypertension Social History Household Members: None Household Members Other:: self Housing: Apartment Are you a primary healthcare sales representative to a significant other at home: No Do you presently have visiting nurse or other home services: No Alcohol intake: never Patient Tobacco Use Status: Never used Tobacco Second Hand Smoke Exposure: No Advance Directives Date on File: 11/15/24 service: No Current occupational status: retired Current occupation: right handed Review of Systems Const All systems reviewed & are unremarkable except as noted in HPI and below ENT Denies dizziness Card Denies chest pain, Denies chest pain at rest, Denies chest pain with activity, Denies rapid heart rate, Denies pedal edema, Denies edema, Denies leg edema, Denies lightheadedness, Denies palpitations, Denies dyspnea, Denies dyspnea on exertion and Denies orthopnea Resp Denies cough, Denies dyspnea and Denies dyspnea on exertion GI Denies hematochezia and Denies change in stool character Musc Details: sciatica right leg Reports abnormal gait (uses walker), Denies limited range of motion, Denies muscle cramps, Denies muscle weakness, Denies numbness, Reports radiating pain into limb, Denies stiffness and Denies tingling Neuro Reports abnormal gait (uses walker), Denies dizziness, Denies numbness and Denies tingling Endo Denies palpitations Physical Exam Vital Signs: Last Vital Signs Pulse 71 11/27/24 10:22 BP 124/52 L 11/27/24 10:22 BMI result Body Mass Index 34.4 Const General: cooperative, healthy appearing, comfortable and no acute distress Orientation/consciousness: patient oriented x3 Neck Neck: Yes normal visual inspection and Yes no JVD Resp Effort & Inspection: normal respiratory effort Auscultation: clear to auscultation bilaterally, no crackles, no rales, no rhonchi and no wheezes Cardio Jugular venous distension: no JVD Rate: regular rate Rhythm: regular rhythm Heart sounds: S1 normal heart sound present, S2 normal heart sound present, no murmurs and no rubs Neuro General: patient oriented x3 Extrem Other: moves all extremities General: Yes normal to inspection, No no pedal edema and No calf tenderness Psych Other: speech clear and appropriate Appearance: grossly normal Mental Status: mental status grossly normal Speech and movement: Normal speech and movement present Assessment & Plan Assessment & Plan (1) CAD (coronary artery disease): Comment: circumflex territory ischemia on nuclear stress testing, no invasive strategy due to lack of symptoms Code(s): I25.10 - Atherosclerotic heart disease of [place]ock coronary artery without angina pectoris Category: Medical Plan: Presumed to have CAD based on nuclear stress test done in the past showing circumflex territory ischemia. She did have a repeat nuclear stress test on 08/10/2021 showing a fixed distal inferior lateral defect, question prior infarct, [id number] ischemia in the distal anterior septal wall. She denies anginal symptoms. Last EKG done l shows no findings suggesting ischemia. She has multiple cardiac risk factors including hypertension, hyperlipidemia, diabetes and needs ongoing risk factor modification. Reviewed this with her and she states understanding. Continue aspirin, atorvastatin and metoprolol. Signs and symptoms of angina reviewed with her. Emergency care if ever needed for symptoms. Cardiology follow-up 6 months, sooner if needed (2) Weakness of left side of body: Code(s): R53.1 - Weakness Category: Medical Plan: [facility] admission last August 2023 for garbled speech and reported heaviness on the left side of her body with sudden onset with resolution. CVA ruled out. Neurology suspected possible TIA. An echocardiogram done 09/02/2023 showed EF 50- 55%, no significant valve abnormalities. A Holter monitor was done for 9 days on 11/10/2023 which showed sinus rhythm with average heart rate 63, no atrial fibrillation, no significant arrhythmia. The use of a cardiac event monitor may be challenging for her. On prior visit I recommended a repeat Holter monitor for a longer period of time and she declined. Currently no recurrent neurological type events. Continue with good blood pressure control. Emergency care if ever needed for symptoms. (3) HTN (hypertension): Code(s): I10 - Essential (primary) hypertension Category: Medical Plan: Blood pressure goal less than 130/80. Well controlled at this time. No med changes made. (4) Hyperlipidemia: Code(s): E78.5 - Hyperlipidemia, unspecified Category: Medical Plan: [place] LDL goal less than 70 in patient with diabetes. Labs done 10/04/2024 showed LDL 147, uncontrolled. Her med list does include atorvastatin 40 mg daily. Will need to clarify with the pharmacy if she has been obtaining. Plan I discussed with the patient the importance of monitoring her cholesterol levels and the need for a recheck in the coming weeks. We talked about the potential signs of coronary artery disease, such as chest pain and breathing difficulties, and the importance of seeking immediate care if these occur. I also advised her to keep her upcoming appointment for sciatica evaluation. Patient Instructions: - Continue taking atorvastatin, aspirin, and metoprolol as prescribed. - Schedule and complete a cholesterol recheck, fasting before the test. - Monitor for chest pain or breathing changes and seek immediate care if these occur. - Attend the upcoming appointment for sciatica evaluation. Patient was informed and verbally consented to the use of an ambient scribe for clinic note documentation during this visit. Visit time spent on chart review, interview, assessment, orders, documentation. Coding Level of Care Code Est Pt Level 3 (97242) Complex EM visit Add On G2211 Diagnoses CAD (coronary artery disease) I25.10 Weakness of left side of body R53.1 HTN (hypertension) I10 Hyperlipidemia E78.5 Time Spent (min) 24
--- OUTSIDE RECORDS SUMMARY | 2024-11-27 11:26 | XMS_ITS | Encounter Summary ---
Author Organization [employer] Address [address] [place] [address] Care Team Providers Care Healthcare Sales Representative Name Role Phone Nahomy Davies MD Primary Care Pro vider Reason for Visit * Reason Comments Med Refill Encounter Details Date Type Department Care Team ([facility] st Contact Info) Description 11/11/2023 Refill [facility] [address] [place] [address] Nahomy Davies MD [address] [place] [address] Type 2 diabetes mellitus without complication, without long-term current use of insulin ([facility]) Social History Tobacco Use Types Packs/Day [...] Description 12/06/2024 10:30 AM EDT Office Visit [facility] [address] [place] [phone] Nahomy Davies MD [address] [place] [phone] 01/18/2025 9:15 AM EDT Office Visit [facility] [address] [place] [phone] Karrie Carlisle MD [address] [place] [address] [phone] documented as of this encounter Visit Diagnoses Diagnosis Type 2 diabetes mellitus without complication, without long-term current use of insulin ([facility]) documented in this encounter Additional Health Concerns Assessment Noted Time PHQ-9 Depression Total Score: 0 04/23/19 9:18 AM EST documented as of this encounter Care Teams Healthcare Sales Representative Relationship Specialty Start Date End Date Nahomy Davies MD [address] [place] [address] [phone] PCP - General Internal Medicine 01/13/23 documented as of this encounter
== END 2024-11-27 10:52 | disposition home or self-care (01) ==
LOC: HO.HCS 10:11
PROVIDERS: PCP Student in an Organized Health Care Education/Training Program; Visit Provider Nurse Practitioner Family
DX: I25.10 Atherosclerotic heart disease of native coronary artery without angina pectoris (principal); R53.1 Weakness; I10 Essential (primary) hypertension; E78.5 Hyperlipidemia, unspecified
CPT/HCPCS: 99213; G2211

== ENCOUNTER → 2024-11-27 10:10 | Outpatient (BNVA) | payer OTHER, SELFPAY | PROVIDERS: PCP Student in an Organized Health Care Education/Training Program; Visit Provider Nurse Practitioner Family | DX: I25.10 Atherosclerotic heart disease of native coronary artery without angina pectoris (principal); R53.1 Weakness; I10 Essential (primary) hypertension; E78.5 Hyperlipidemia, unspecified | CPT/HCPCS: 99212 ==

== ENCOUNTER 2024-12-11 10:27 | Outpatient (AMB) | payer OTHER, SELFPAY ==
--- NOTE | 2024-12-11 10:31 | A.OFFVIS_ITS ---
Vital Signs 12/11/24 10:37 Height 5 ft 3 in Weight 200 lb BMI 35.4 BP 131/81 Blood Pressure Location Rt brachial Position Sitting Pulse 72 Pulse Source Pulse Oximeter Pulse Oximetry (%) 98 Oxygen Delivery Method Room Air Intake Visit Reasons: CHRONIC RIGHT SIDED LOW BACK PAIN Intake Note: Pain today 07/19 Platen Drier Operator Required: Yes Platen Drier Operator Language: Acidity Tester Services: Platen Drier Operator Offered & Declined Platen Drier Operator Name: ashia Albrecht Information Interpreted: non-clinical & clinical Accompanied by: Daughter Allergies lisinopril Allergy (Intermediate, Verified 12/11/24 10:37) itching Penicillins Allergy (Intermediate, Verified 12/11/24 10:37) rash/hives black pepper Allergy (Mild, Verified 12/11/24 10:37) Unknown fluticasone (From Flonase) Allergy (Mild, Verified 12/11/24 10:37) Unknown HPI Comments Details: The patient is a 79-year-old Panamanian speaking female presenting with chronic low back pain. The pain has been persistent and is worse on the right side, radiating to the buttock and lateral right hip. The patient reports that the pain intensity is currently at a level of 4-5 out of 10 and worse with walking, changing positions or prolonged sitting. The patient has history of moderate facet arthritis and disc degeneration with history of left sided sciatica. She denies any significant leg pain today. The patient has diabetes mellitus, with a recent A1c of 7.1 and a random blood sugar of 102 mg/dL. However, she reported a low blood sugar reading of 54 mg/dL this morning, which was addressed by eating. She was advised to follow up with her PCP for medication review, currently reports taking insulin and oral medications for DM. - Onset and Timing: Chronic, persistent pain - Quality and Character: Aching, sharp, dull, hurting, sore - Primary Location: Right lower back, radiating to the buttock and lateral hip - Exacerbating Factors: Backward bending, certain leg movements - Relieving Factors: Rest, Tylenol and Ibuprofen with temporary relief - Affect: Pain affects sleep and social interactions - Analgesia: Current pain level is 4-5/10; medications include ibuprofen, Tylenol, and pregabalin - Adverse Effects: None - Activities of Daily Living: Uses a cane for ambulation - Aberrant Drug Related Behaviors: Not explicitly discussed PRIOR 02/25/22: Patient presents today in the office to assess response to Left parasagittal interlaminar JOSHUA at L4-L5 on 01/27/[address] Brunson. Patient is accompanied by her daughter who assists with translation per patient's request. Patient reports 60% pain relief since the procedure. She denies radicular symptoms todays and has no pain with SLR testing or bending. Patient has significant reproduction of axial back pain with facet loading and lumbar extension over 5 degrees. She also reports bilateral knee pain, left worse than the right knee. Patient was followed for knee pain with orthopedic services and last received cortisone injections 12/2020. Patient reports that at this time her left knee pain is more bothersome than axial back pain. She is interested to proceed with diagnostic left genicular nerve blocks for potential RFA procedure. Patient's daughter states patient lives alone at home and PNS temporary trial with [facility] will not be practical for patient. Past procedures:? 01/27/22: Left parasagittal interlaminar L4-L5 JOSHUA-60% pain relief 02/04/2021:? Interlaminar L5-S1 epidural steroid injection - 100% relief ? [facility] Medical History Tubular adenoma of colon Chronic restrictive lung disease Insomnia On beta anish at home History of COVID-19 Asthma Chronic constipation Broken arm CAD (coronary artery disease) HTN (hypertension) Hyperlipidemia Diabetes mellitus Dyspnea Dysphagia Non-toxic multinodular goiter Hypothyroidism Surgical History H/O thyroidectomy History of surgery Hx of elbow surgery History of surgery on arm Hx of cholecystectomy History of partial hysterectomy Hx of cataract surgery History of tubal ligation Hx of tonsillectomy History of carpal tunnel release Hx of colonoscopy Family History Father Throat cancer Heart disease CVD (cardiovascular disease) Mother Stomach cancer Type 2 diabetes mellitus Arthritis of knee Hypertension Social History Household Members: None Household Members Other:: self Housing: Apartment Are you a primary body care manager to a significant other at home: No Do you presently have visiting nurse or other home services: No Alcohol intake: never Patient Tobacco Use Status: Never used Tobacco Second Hand Smoke Exposure: No Advance Directives Date on File: 11/15/24 service: No Current occupational status: retired Current occupation: right handed Review of Systems Const Details: - Musculoskeletal: Reports chronic low back pain, worse on the right side, radiating to the buttock - Endocrine: Reports diabetes mellitus with recent low blood sugar episode All systems reviewed & are unremarkable except as noted in HPI and below Physical Exam On exam today: Appears afebrile. Alert and oriented. Mood and affect appropriate. Follows and participates in conversation appropriately. Respiratory effort is unlabored. No cough. No respiratory distress. Able to transition from sit to stand with assistance of cane. Ambulates with bilaterally normal heel strike and toe off. Able to stand and walk on toes and heels. Back/Spine/Pelvis Other: Limited lumbar ROM due to pain. Demonstrates 5/5 strength of quadriceps bilaterally as well as flexion/dorsiflexion of bilateral feet against resistance. 2+ pedal pulses bilaterally. Straight leg rise with dorsiflexion negative bilaterally. +1 patellar and achilles reflexes bilaterally. Facet loading test positive bilaterally. Michael sign, Flako?s, [place], Pelvic compression and Stinchfield tests are positive on the right. No groin pain with I/E hip rotations. Cervical Spine: cervical ROM normal and No Cervical spine tenderness Thoracic/Lumbar Spine: thoracic and lumbar spine normal to inspection, Lasegue's sign negative, straight leg raise negative bilaterally, pain with thoraco-lumbar ROM, paraspinal muscle tenderness, thoraco-lumbar ROM limited, No thoracic spinal tenderness and lumbar spinal tenderness (L5-S1) Pelvis: buttock tenderness on the right Sacroiliac joints: on the right tender to palpation and on the left nontender Extrem General: Yes capillary refill normal, Yes no clubbing, cyanosis or edema and Yes no calf tenderness Results Reviewed Results Reviewed: XR LUMBOSACRAL SPINE 11/14/24 CLINICAL INFORMATION: exacerbation of right LBP with right radiculopathy. COMPARISON: None available. TECHNIQUE: Three views of the lumbosacral spine. FINDINGS: There is a minimal levoconvex scoliosis, possibly positional. There is a normal lordosis. There are no fractures, compression deformities, or suspicious bone lesions. There is mild to moderate multilevel disc degeneration present, and facet degeneration spanning L3-S1. No subluxations of significance. The sacrum and SI joints appear normal. Soft tissues demonstrate early vascular calcifications. IMPRESSION: 1. No acute bony abnormalities of the lumbar spine. 2. Mild to moderate spondylosis. XR DEXA axial skeleton 08/18/23 IMPRESSION: 1. DIAGNOSIS: Osteopenia based on the lowest T-score value of -2.0 in the femoral neck applying World Health Organization criteria. MR LUMBAR SPINE WITHOUT CONTRAST 11/03/21 CLINICAL INFORMATION: Radiculopathy, lumbar region COMPARISON: None TECHNIQUE: MRI of the lumbar spine was obtained using routine sequences without contrast. FINDINGS: The lumbar vertebral bodies maintain normal heights. There is mild anterolisthesis of L4 on L5. The disc heights are preserved. No bone marrow edema is seen. The distal spinal cord appears normal. The conus medullaris terminates normally at the T12-L1 level. Small sacral Tarlov cysts are noted. The extraspinal soft tissues are within normal limits. SPINAL LEVELS: L1-L2: Shallow right subarticular protrusion. No spinal canal or neural foraminal stenosis. L2-L3: Mild disc bulging with mild facet arthropathy and ligament flavum infolding. No spinal canal stenosis. Minimal neural foraminal stenosis. L3-L4: Disc bulging with ligamentum flavum infolding moderate facet arthropathy resulting in mild spinal canal stenosis with bilateral subarticular stenosis with abutment of both traversing L4 nerve roots. Mild bilateral neural foraminal stenosis with abutment of the exiting right L3 nerve root. L4-L5: Disc bulging with central protrusion, ligamentum flavum infolding, and moderate facet arthropathy resulting in moderate spinal canal stenosis with mild compression of both traversing L5 nerve roots. Mild right neural foraminal stenosis with abutment of the exiting right L4 nerve root. L5-S1: Mild disc bulging with moderate facet arthropathy. No spinal canal stenosis. No significant neural foraminal stenosis. IMPRESSION: At L3-L4 there is mild spinal canal stenosis and subarticular stenosis with abutment of both traversing L4 nerve roots. Mild bilateral neural foraminal stenosis with abutment of the exiting right L3 nerve root. At L4-L5 there is moderate spinal canal stenosis with mild compression of both traversing L5 nerve roots and abutment of the exiting right L4 nerve root. Assessment & Plan Assessment & Plan (1) Lumbar spondylosis: Code(s): M47.816 - Spondylosis without myelopathy or radiculopathy, lumbar region Category: Medical (2) Lumbar radiculopathy: Code(s): M54.16 - Radiculopathy, lumbar region Category: Medical (3) Sacroiliac joint pain: Code(s): M53.3 - Sacrococcygeal disorders, not elsewhere classified Category: Medical Plan The plan includes scheduling a sacroiliac joint injection to address the sacroiliac joint pain, pending insurance approval. The patient is advised to monitor blood sugar levels closely, especially after the injection, as it may cause an increase in blood sugar. The patient should inform her primary care physician if low blood sugar episodes continue, as medication adjustments may be necessary. Schedule Right therapeutic SI joint injection with local and fluoroscopy. Expectations, risks and benefits were reviewed. Patient is aware she will be contacted to schedule this procedure. All questions and concerns have been answered and patient agreed with the treatment plan. Follow up after injection and sooner as needed. Patient Instructions: - Monitor blood sugar levels closely, especially after the injection. - Contact your primary care physician if you experience frequent low blood sugar episodes. - Await a call for scheduling the sacroiliac joint injection after insurance approval. Patient was informed and verbally consented to the use of an ambient scribe for clinic note documentation during this visit. Coding Level of Care Code Est Pt Level 4 (45800) Complex EM visit Add On G2211 Diagnoses Lumbar spondylosis M47.816 Lumbar radiculopathy M54.16 Sacroiliac joint pain M53.3
[2024-12-11 10:37] VITALS: BP 131/81; PULSE 72; O2SAT 98; BMI 35.4
--- OUTSIDE RECORDS SUMMARY | 2024-12-11 12:00 | XMS_ITS | Encounter Summary ---
Author Organization [employer] Address [address] [facility] [facility] [address] [place] [address] Care Team Providers Care Food Concession Manager Name Role Phone Nahomy Davies MD Primary Care Pro vider Reason for Visit * Reason Comments Med Refill Encounter Details Date Type Department Care Team ([facility] st Contact Info) Description 10/12/2023 Refill [facility] [address] [place], [place] [phone] Nahomy Davies MD [address] [place], [place] [phone] Iron deficiency anemia, unspecified iron deficiency anemia [...] Care Team (Late st Contact Info) Description 01/18/2025 9:15 AM EDT Office Visit [facility] [address] [place] [phone] Karrie Carlisle MD [address] [place] [address] [phone] documented as of this encounter Visit Diagnoses Diagnosis Iron deficiency anemia, unspecified iron deficiency anemia type documented in this encounter Additional Health Concerns Assessment Noted Time PHQ-9 Depression Total Score: 0 04/23/19 23 9:18 AM EST documented as of this encounter Care Teams Food Concession Manager Relationship Specialty Start Date End Date Nahomy Davies MD [address] [place] [address] [phone] PCP - General Internal Medicine 01/13/23 [place] A 11/17/24 documented as of this encounter
--- OUTSIDE RECORDS SUMMARY | 2024-12-11 12:00 | XMS_ITS | Encounter Summary ---
Author Organization [employer] Address 75 [facility] 7t [place] [address] Care Team Providers Care Neon Technician Name Role Phone Nahomy Davies MD Primary Care Pro vider Reason for Visit * Reason Comments Med Refill Encounter Details Date Type Department Care Team ([facility] st Contact Info) Description 11/08/2023 Refill [facility] 230 [place] [address] Nahomy Davies MD 230 [place] [address] Type 2 diabetes mellitus without complication, without long-term current use of insulin ([facility]) Social History Tobacco Use Types [...] Description 01/18/2025 9:15 AM EDT Office Visit [facility] [address] [place] [address] Karrie Carlisle MD [address] [place] [phone] documented as of this encounter Visit Diagnoses Diagnosis Type 2 diabetes mellitus without complication, without long-term current use of insulin ([facility]) documented in this encounter Additional Health Concerns Assessment Noted Time PHQ-9 Depression Total Score: 0 04/23/19 23 9:18 AM EST documented as of this encounter Care Teams Neon Technician Relationship Specialty Start Date End Date Nahomy Davies MD [address] [place] [phone] PCP - General Internal Medicine 01/13/23 [facility] 11/17/24 documented as of this encounter
--- OUTSIDE RECORDS SUMMARY | 2024-12-11 12:00 | XMS_ITS | Encounter Summary ---
Author Organization [employer] Address 75 [facility] 7t [place] [address] Care Team Providers Care Turbo Generator Oiler Name Role Phone Nahomy Davies MD Primary Care Pro vider Reason for Visit * Reason Comments Med Refill Encounter Details Date Type Department Care Team ([facility] st Contact Info) Description 11/08/2023 Refill [facility] 230 [place] [address] Nahomy Davies MD 230 [place] [address] Type 2 diabetes mellitus without complication, without long-term current use of insulin ([facility]) Social History Tobacco Use Types Packs/Day Years [...] Description 01/18/2025 9:15 AM EDT Office Visit [facility] [address] [place] [address] Karrie Carlisle MD [address] [place] [address] documented as of this encounter Visit Diagnoses Diagnosis Type 2 diabetes mellitus without complication, without long-term current use of insulin ([facility]) documented in this encounter Additional Health Concerns Assessment Noted Time PHQ-9 Depression Total Score: 0 04/23/19 23 9:18 AM EST documented as of this encounter Care Teams Turbo Generator Oiler Relationship Specialty Start Date End Date Nahomy Davies MD [address] [place] [phone] PCP - General Internal Medicine 01/13/23 [facility] 11/17/24 documented as of this encounter
--- OUTSIDE RECORDS SUMMARY | 2024-12-11 12:00 | XMS_ITS | Encounter Summary ---
Author Organization [employer] Address 75 [facility] 7[address] [place] [address] Care Team Providers Care Death Claim Examiner Name Role Phone Nahomy Davies MD Primary Care Pro vider Reason for Visit * Reason Comments Med Refill Encounter Details Date Type Department Care Team ([facility] st Contact Info) Description 10/03/2024 Refill [facility] [address] [place], [place] [phone] Nahomy Davies MD 230 [place], [place] [phone] Cobalamin deficiency Social History Tobacco Use Types Packs/Day Years Used Date Smoking Tobacco: Never Passive Smoke Exposure: Never Smokeless Tobacco: Never Alcohol Use Standard Drinks/Week Comments Never 0 (1 standard drink = 0.6 oz pur e alcohol) Depression Answer Date Recorded Patient Health Questionnaire-9 Score 0 09/26/2024 Patient Health Questionnaire-9 Score 0 09/26/2024 Last PHQ-9: Questionnaire Data Not on file 0 09/26/2024 Housing Stability Answer Date Recorded What is your housing situation today? I have chiara bello 08/28/[address] you li ve. Do you have problems with any of the following? None of the above 08/28/2024 Food Insecurity Answer Date Recorded Within the [...] Date Recorded Patient Health Questionnaire-2 Score 0 09/26/2024 Internet Access Answer Date Recorded Internet Access Q1 Yes 08/28/2024 Internet Access Q2 Not on file 08/28/2024 Comments No Sex and Gender Information Value [...] Description 01/18/2025 9:15 AM EDT Office Visit [facility] [address] [place] [address] Karrie Carlisle MD [address] [place] [phone] documented as of this encounter Visit Diagnoses Diagnosis Cobalamin deficiency Other B-complex deficiencies documented in this encounter Additional Health Concerns Assessment Noted Time PHQ-9 Depression Total Score: 0 09/27/19 2:19 PM EDT documented as of this encounter Care Teams Death Claim Examiner Relationship Specialty Start Date End Date Nahomy Davies MD [address] [place] [phone] PCP - General Internal Medicine [facility]23 [facility] documented as of this encounter
--- OUTSIDE RECORDS SUMMARY | 2024-12-11 12:00 | XMS_ITS | Encounter Summary ---
Author Organization [employer] Address 75 [facility] 7t [place] [address] Care Team Providers Care Manager Ship Name Role Phone Nahomy Davies MD Primary Care Pro vider Reason for Visit * Reason Comments Med Refill Encounter Details Date Type Department Care Team ([facility] st Contact Info) Description 11/11/2023 Refill [facility] 230 [place] [address] Nahomy Davies MD 230 [place] [address] Type 2 diabetes mellitus without complication, without long-term current use of insulin ([facility]) Social History Tobacco [...] Description 01/18/2025 9:15 AM EDT Office Visit [facility] [address] [place] [address] Karrie Carlisle MD [address] [place] [address] documented as of this encounter Visit Diagnoses Diagnosis Type 2 diabetes mellitus without complication, without long-term current use of insulin ([facility]) documented in this encounter Additional Health Concerns Assessment Noted Time PHQ-9 Depression Total Score: 0 04/23/19 23 9:18 AM EST documented as of this encounter Care Teams Manager Ship Relationship Specialty Start Date End Date Nahomy Davies MD [address] [place] [phone] PCP - General Internal Medicine 01/13/23 [facility] 11/17/24 documented as of this encounter
--- OUTSIDE RECORDS SUMMARY | 2024-12-11 12:00 | XMS_ITS | Encounter Summary ---
Author Organization [email or web address] Address 75 [facility] 7t [place] [address] Care Team Providers Care Square Dance Caller Name Role Phone Nahomy Davies MD Primary Care Pro vider Reason for Visit * Reason Comments Med Refill Encounter Details Date Type Department Care Team ([facility] st Contact Info) Description 10/18/2023 Refill [facility] 230 [place] [address] Nahomy Davies MD 230 [place] [address] Social History Tobacco Use Types Packs/Day Years [...] Description 01/18/2025 9:15 AM EDT Office Visit [facility] [address] [place] [address] Karrie Carlisle MD [address] [place] [address] documented as of this encounter Visit Diagnoses Not on filedocumented in this encounter Additional Health Concerns Assessment Noted Time PHQ-9 Depression Total Score: 0 04/23/19 23 9:18 AM EST documented as of this encounter Care Teams Square Dance Caller Relationship Specialty Start Date End Date Nahomy Davies MD [address] [place] [address] [phone] PCP - General Internal Medicine 01/13[facility]23 [facility] documented as of this encounter
--- OUTSIDE RECORDS SUMMARY | 2024-12-11 12:00 | XMS_ITS | Encounter Summary ---
Author Organization [employer] Address 75 [facility] 7t [place] [address] Care Team Providers Care Expenditure Requisition Clerk Name Role Phone Nahomy Davies MD Primary Care Pro vider Reason for Visit * Reason Comments Med Refill Encounter Details Date Type Department Care Team ([facility] st Contact Info) Description 11/07/2023 Refill [facility] 230 [place] [address] Nahomy Davies MD 230 [place], [place] [phone] Type 2 diabetes mellitus without complication, without long-term current use of insulin ([facility]) Social History Tobacco Use Types Packs/Day [...] Description 01/18/2025 9:15 AM EDT Office Visit [facility] [address] [place] [address] Karrie Carlisle MD [address] [place] [address] documented as of this encounter Visit Diagnoses Diagnosis Type 2 diabetes mellitus without complication, without long-term current use of insulin ([facility]) documented in this encounter Additional Health Concerns Assessment Noted Time PHQ-9 Depression Total Score: 0 04/23/19 23 9:18 AM EST documented as of this encounter Care Teams Expenditure Requisition Clerk Relationship Specialty Start Date End Date Nahomy Davies MD [address] [place] [phone] PCP - General Internal Medicine 01/13/23 [facility] 11/17/24 documented as of this encounter
--- OUTSIDE RECORDS SUMMARY | 2024-12-11 12:01 | XMS_ITS | Encounter Summary ---
Author Organization [employer] Address 75 [facility] 7t [place] [address] Care Team Providers Care Plating Stripper Name Role Phone Nahomy Davies MD Primary Care Pro vider Reason for Visit * Reason Comments Med Refill Encounter Details Date Type Department Care Team ([facility] st Contact Info) Description 08/07/2024 Refill [facility] [address] [place], [place] [phone] Irene Mei MD 230 [place] [address] Social History Tobacco Use Types Packs/Day Years [...] Upcoming Encounters Date Type Department Care Team ([facility] st Contact Info) Description 01/18/2025 9:15 AM EDT Office Visit [facility] [address] [place] [address] Karrie Carlisle MD [address] [place] [address] documented as of this encounter Visit Diagnoses Not on filedocumented in this encounter Additional Health Concerns Assessment Noted Time PHQ-9 Depression Total Score: 0 04/23/19 23 9:18 AM EST documented as of this encounter Care Teams Plating Stripper Relationship Specialty Start Date End Date Nahomy Davies MD [address] [place] [phone] PCP - General Internal Medicine 01/13/23 [facility] 11/17/24 documented as of this encounter
--- OUTSIDE RECORDS SUMMARY | 2024-12-11 12:01 | XMS_ITS | Encounter Summary ---
Author Organization [employer] Address 75 [facility] 7t [place] [address] Care Team Providers Care Psych Arnp Name Role Phone Nahomy Davies MD Primary Care Pro vider Reason for Visit * Reason Comments Med Refill Encounter Details Date Type Department Care Team ([facility] st Contact Info) Description 02/27/2024 Refill [facility] 230 [place], [place] [phone] Irene Mei MD 230 [place], [place] [phone] Shortness of breath; Type 2 diabetes mellitus with other specified complication, with long-term current use of insulin ([facility]) Social History Tobacco [...] Description 01/18/2025 9:15 AM EDT Office Visit [facility] [address] [place] [address] Karrie Carlisle MD [address] [place] [address] documented as of this encounter Visit Diagnoses Diagnosis Shortness of breath Type 2 diabetes mellitus with other specified complication, with long-term current use of insulin ([facility]) documented in this encounter Additional Health Concerns Assessment Noted Time PHQ-9 Depression Total Score: 0 04/23/19 23 9:18 AM EST documented as of this encounter Care Teams Psych Arnp Relationship Specialty Start Date End Date Nahomy Davies MD [address] [place] [phone] PCP - General Internal Medicine 01/13/23 [facility] 11/17/24 documented as of this encounter
--- OUTSIDE RECORDS SUMMARY | 2024-12-11 12:01 | XMS_ITS | Encounter Summary ---
Author Organization [employer] Address [address] [place] [address], [place] [address] Care Team Providers Care Rn Wound Care Name Role Phone Nancy Larose [facility] Primary Care Provider Nahomy Wilkins MD Primary Care Pro vider Encounter Details Date Type Department Care Team (Late st Contact Info) Description 03/30/2022 Orders Only [facility] 230 [place] [address] Kary Lux LPN Social History Tobacco Use [...] Description 01/18/2025 9:15 AM EDT Office Visit [facility] 230 [place] [address] Karrie Carlisle MD 230 [place] [address] documented as of this encounter Visit Diagnoses Not on filedocumented in this encounter Care Teams Rn Wound Care Relationship Specialty Start Date End Date Nancy Larose FNP PCP - General Family Medicine 12/08/21 01/12/23 Nahomy Davies MD 230 [place] [address] PCP - General Internal Medicine 01/13/23 [facility] 11/17/24 documented as of this encounter
--- OUTSIDE RECORDS SUMMARY | 2024-12-11 12:01 | XMS_ITS | Encounter Summary ---
Author Organization [employer] Address 75 [facility] 7t [place] [address] Care Team Providers Care Resident Inspector Name Role Phone Nahomy Davies MD Primary Care Pro vider Reason for Visit * Reason Comments Med Refill Encounter Details Date Type Department Care Team ([facility] st Contact Info) Description 04/20/2024 Refill [facility]S [address] [place], [place] [phone] Nahomy Davies MD 230 [place], [place] [phone] Mixed hyperlipidemia Social History Tobacco Use Types [...] Upcoming Encounters Date Type Department Care Team ([facility] st Contact Info) Description 01/18/2025 9:15 AM EDT Office Visit [facility] [address] [place] [address] Karrie Carlisle MD [address] [place] [phone] documented as of this encounter Visit Diagnoses Diagnosis Mixed hyperlipidemia documented in this encounter Additional Health Concerns Assessment Noted Time PHQ-9 Depression Total Score: 0 04/23/19 23 9:18 AM EST documented as of this encounter Care Teams Resident Inspector Relationship Specialty Start Date End Date Nahomy Davies MD [address] [place] [phone] PCP - General Internal Medicine 01/13[facility]23 [facility] documented as of this encounter
--- OUTSIDE RECORDS SUMMARY | 2024-12-11 12:01 | XMS_ITS | Encounter Summary ---
Author Organization [employer] Address 75 [facility] 7t [place] [address] Care Team Providers Care Bindery Production Manager Name Role Phone Nahomy Davies MD Primary Care Pro vider Reason for Visit * Reason Comments Med Refill Encounter Details Date Type Department Care Team ([facility] st Contact Info) Description 07/10/2024 Refill [facility] [address] [place], [place] [phone] Irene Mei MD 230 [place], [place] [phone] Type 2 diabetes mellitus without complication, without long-term current use of insulin ([facility]) Social History Tobacco Use Types [...] 9:15 AM EDT Office Visit [facility] [address] [place] [address] Karrie Carlisle MD [address] [place] [address] documented as of this encounter Visit Diagnoses Diagnosis Type 2 diabetes mellitus without complication, without long-term current use of insulin ([facility]) documented in this encounter Additional Health Concerns Assessment Noted Time PHQ-9 Depression Total Score: 0 04/23/19 23 9:18 AM EST documented as of this encounter Care Teams Bindery Production Manager Relationship Specialty Start Date End Date Nahomy Davies MD [address] [place] [phone] PCP - General Internal Medicine 01/13/23 [facility] documented as of this encounter
--- OUTSIDE RECORDS SUMMARY | 2024-12-11 12:01 | XMS_ITS | Encounter Summary ---
Author Organization [employer] Address 75 [facility] 7t [place] [address] Care Team Providers Care Personnel Recruiter Name Role Phone Nahomy Davies MD Primary Care Pro vider Reason for Visit * Reason Comments Med Refill Encounter Details Date Type Department Care Team ([facility] st Contact Info) Description 03/07/2024 Refill [facility] 230 [place], [place] [phone] Irene Mei MD 230 [place], [place] [phone] Shortness of breath; Type 2 diabetes mellitus with other specified complication, with long-term current use of insulin ([facility] Chronic neck pain Social History Tobacco Use [...] Description 01/18/2025 9:15 AM EDT Office Visit [facility] [address] [place] [address] Karrie Carlisle MD [address] [place] [address] documented as of this encounter Visit Diagnoses Diagnosis Shortness of breath Type 2 diabetes mellitus with other specified complication, with long-term current use of insulin ([facility]) Chronic neck pain Cervicalgia documented in this encounter Additional Health Concerns Assessment Noted Time PHQ-9 Depression Total Score: 0 04/23/19 23 9:18 AM EST documented as of this encounter Care Teams Personnel Recruiter Relationship Specialty Start Date End Date Nahomy Davies MD [address] [place] [phone] PCP - General Internal Medicine 01/13/23 [facility] 11/17/24 documented as of this encounter
--- OUTSIDE RECORDS SUMMARY | 2024-12-11 12:01 | XMS_ITS | Encounter Summary ---
Author Organization [employer] Address 75 [facility] 7[place] [address] Care Team Providers Care Test Facility Engineer Name Role Phone Nancy Larose [facility] Primary Care Provider Nahomy Wilkins MD Primary Care Pro vider Reason for Visit * Reason Comments Med Refill Encounter Details Date Type Department Care Team (Late st Contact Info) Description 08/30/2022 Refill [facility] 230 [place] [address] Anamaria Herzog FNP 505 [place] [address] Type 2 diabetes mellitus with other specified complication, with long-term current use of insulin ([facility]) Social History Tobacco Use [...] Description 01/18/2025 9:15 AM EDT Office Visit [facility] [address] [place] [address] Karrie Carlisle MD 230 [place] [address] documented as of this encounter Visit Diagnoses Diagnosis Type 2 diabetes mellitus with other specified complication, with long-term current use of insulin ([facility]) documented in this encounter Additional Health Concerns Assessment Noted Time PHQ-9 Depression Total Score: 0 04/23/19 9:18 AM EST documented as of this encounter Care Teams Test Facility Engineer Relationship Specialty Start Date End Date Nancy Larose FNP PCP - General Family Medicine 12/08/21 01/12/23 Nahomy Davies MD 230 [place], [place] [phone] PCP - General Internal Medicine 01/13/23 [facility] 11/17/24 documented as of this encounter
--- OUTSIDE RECORDS SUMMARY | 2024-12-11 12:01 | XMS_ITS | Encounter Summary ---
Author Organization [email or web address] Address 75 [facility] 7t [place] [address] Care Team Providers Care Airplane Technician Name Role Phone Nahomy Davies MD Primary Care Pro vider Encounter Details Date Type Department Care Team ([facility] st Contact Info) Description 11/15/2024 Results Follow-Up [facility] 230 [place] [address] Nahomy Davies MD 230 [place] [address] CT Abdomen Pelvis w/o Contrast Social History Tobacco Use Types Packs/Day Years [...] as of this encounter Miscellaneous Notes * Result Encounter Note - Nahomy Kessler MD - 11/15/2024 2:37 PM EDT Labs done by outside provider documented in this encounter Plan of Treatment Upcoming Encounters Date Type Department Care Team (Late st Contact Info) Description 01/18/2025 9:15 AM EDT Office Visit [facility] [address] [place] [address] Karrie Carlisle MD 230 [place] [address] documented as of this encounter Visit Diagnoses Not on filedocumented in this encounter Additional Health Concerns Assessment Noted Time PHQ-9 Depression Total Score: 0 09/27/19 2:19 PM EDT documented as of this encounter Care Teams Airplane Technician Relationship Specialty Start Date End Date Nahomy Davies MD [address] [place] [phone] PCP - General Internal Medicine [facility]23 [facility] documented as of this encounter
--- OUTSIDE RECORDS SUMMARY | 2024-12-11 12:01 | XMS_ITS | Encounter Summary ---
Author Organization [employer] Address 75 [facility] 7t [place] [address] Care Team Providers Care Sock Ironer Name Role Phone Nahomy Davies MD Primary Care Pro vider Reason for Visit * Reason Comments Med Refill Encounter Details Date Type Department Care Team ([facility] st Contact Info) Description 01/22/2024 Refill [facility] 230 [place] [address] Nahomy Davies MD 230 [place] [address] Social History Tobacco Use Types Packs/Day Years [...] Upcoming Encounters Date Type Department Care Team ([facility] st Contact Info) Description 01/18/2025 9:15 AM EDT Office Visit [facility] [address] [place] [phone] Karrie Carlisle MD [address] [place] [address] documented as of this encounter Visit Diagnoses Not on filedocumented in this encounter Additional Health Concerns Assessment Noted Time PHQ-9 Depression Total Score: 0 04/23/19 23 9:18 AM EST documented as of this encounter Care Teams Sock Ironer Relationship Specialty Start Date End Date Nahomy Davies MD [address] [place] [phone] PCP - General Internal Medicine 01/13/23 [facility] documented as of this encounter
--- OUTSIDE RECORDS SUMMARY | 2024-12-11 12:01 | XMS_ITS | Encounter Summary ---
Author Organization [employer] Address [address] [facility] 7t [place] [address] Care Team Providers Care Legal Transcriptionist Name Role Phone Nahomy Davies MD Primary Care Pro vider Reason for Visit * Reason Comments Med Refill Encounter Details Date Type Department Care Team ([facility] st Contact Info) Description 02/28/2024 Refill [facility] [address] [place], [place] [phone] Irene Mei MD [address] [place], [place] [phone] Type 2 diabetes mellitus with other specified complication, with long-term current use of insulin ([facility]); Shortness of breath; Chronic neck pain [...] Description 01/18/2025 9:15 AM EDT Office Visit [facility] [address] [place] [phone] Karrie Carlisle MD [address] [place] [phone] documented as of this encounter Visit Diagnoses Diagnosis Type 2 diabetes mellitus with other specified complication, with long-term current use of insulin ([facility]) Shortness of breath Chronic neck pain Cervicalgia documented in this encounter Additional Health Concerns Assessment Noted Time PHQ-9 Depression Total Score: 0 04/23/19 23 9:18 AM EST documented as of this encounter Care Teams Legal Transcriptionist Relationship Specialty Start Date End Date Nahomy Davies MD [address] [place] [phone] PCP - General Internal Medicine 01/13/23 [facility] 11/17/24 documented as of this encounter
--- OUTSIDE RECORDS SUMMARY | 2024-12-11 12:01 | XMS_ITS | Encounter Summary ---
Author Organization [employer] Address 75 [facility] 7t [place] [address] Care Team Providers Care Director Of Quality Control Name Role Phone Nahomy Davies MD Primary Care Pro vider Reason for Visit * Reason Comments Med Refill Encounter Details Date Type Department Care Team ([facility] st Contact Info) Description 12/02/2023 Refill [facility] MED & PEDS [address] [place], [place] [phone] Nahomy Davies MD [address] [place] [phone] Social History Tobacco Use Types Packs/Day Years [...] 9:15 AM EDT Office Visit [facility] MED[facility]INE [address] [place] [address] [phone] Karrie Carlisle MD [address] [place] [phone] documented as of this encounter Visit Diagnoses Not on filedocumented in this encounter Additional Health Concerns Assessment Noted Time PHQ-9 Depression Total Score: 0 04/23/19 23 9:18 AM EST documented as of this encounter Care Teams Director Of Quality Control Relationship Specialty Start Date End Date Nahomy Davies MD [address] [place] [address] [phone] PCP - General Internal Medicine 01/13/23 [facility] 11/17/24 documented as of this encounter
--- OUTSIDE RECORDS SUMMARY | 2024-12-11 12:01 | XMS_ITS | Encounter Summary ---
Author Organization [employer] Address 75 [facility] [address] [place] [address] Care Team Providers Care Auto Travel Counselor Name Role Phone Nahomy Davies MD Primary Care Pro vider Reason for Visit * Reason Comments Med Refill Encounter Details Date Type Department Care Team ([facility] st Contact Info) Description 01/30/2024 Refill [facility] [address] [place], [place] [phone] Nahomy Davies MD [address] [place] [address] Iron deficiency anemia, unspecified iron deficiency anemia [...] Upcoming Encounters Date Type Department Care Team ([facility] st Contact Info) Description 01/18/2025 9:15 AM EDT Office Visit [facility] [address] [place] [phone] Karrie Carlisle MD [address] [place] [phone] documented as of this encounter Visit Diagnoses Diagnosis Iron deficiency anemia, unspecified iron deficiency anemia type Mixed hyperlipidemia documented in this encounter Additional Health Concerns Assessment Noted Time PHQ-9 Depression Total Score: 0 04/23/19 23 9:18 AM EST documented as of this encounter Care Teams Auto Travel Counselor Relationship Specialty Start Date End Date Nahomy Davies MD [address] [place] [phone] PCP - General Internal Medicine [facility]23 [facility] documented as of this encounter
--- OUTSIDE RECORDS SUMMARY | 2024-12-11 12:01 | XMS_ITS | Encounter Summary ---
Author Organization [employer] Address 75 [facility] 7t [place] [address] Care Team Providers Care Gas Tester Name Role Phone Nahomy Davies MD Primary Care Pro vider Reason for Visit * Reason Comments Med Refill Encounter Details Date Type Department Care Team ([facility] st Contact Info) Description 08/07/2024 Refill [facility] 230 [place], [place] [phone] Nahomy Davies MD [address] [place], [place] [phone] Type 2 diabetes mellitus without complication, without long-term current use of insulin ([facility]); Essential hypertension Social History Tobacco Use Types [...] Description 01/18/2025 9:15 AM EDT Office Visit [facility] [address] [place] [phone] Karrie Carlisle MD [address] [place] [phone] documented as of this encounter Visit Diagnoses Diagnosis Type 2 diabetes mellitus without complication, without long-term current use of insulin ([facility]) Essential hypertension Unspecified essential hypertension documented in this encounter Additional Health Concerns Assessment Noted Time PHQ-9 Depression Total Score: 0 04/23/19 23 9:18 AM EST documented as of this encounter Care Teams Gas Tester Relationship Specialty Start Date End Date Nahomy Davies MD [address] [place] [phone] PCP - General Internal Medicine 01/13/23 [facility] 11/17/24 documented as of this encounter
--- OUTSIDE RECORDS SUMMARY | 2024-12-11 12:01 | XMS_ITS | Encounter Summary ---
Author Organization [employer] Address 75 [facility] [address] [place] [address] Care Team Providers Care Inspector Government Property Name Role Phone Nahomy Davies MD Primary Care Pro vider Reason for Visit * Reason Comments Med Refill Encounter Details Date Type Department Care Team ([facility] st Contact Info) Description 07/10/2024 Refill [facility] [address] [place] [phone] Nahomy Davies MD [address] [place] [address] Iron deficiency anemia, unspecified iron deficiency anemia [...] 01/18/2025 9:15 AM EDT Office Visit [facility] [address] [place] [phone] Karrie Carlisle MD [address] [place] [phone] documented as of this encounter Visit Diagnoses Diagnosis Iron deficiency anemia, unspecified iron deficiency anemia type documented in this encounter Additional Health Concerns Assessment Noted Time PHQ-9 Depression Total Score: 0 04/23/19 23 9:18 AM EST documented as of this encounter Care Teams Inspector Government Property Relationship Specialty Start Date End Date Nahomy Davies MD [address] [place] [phone] PCP - General Internal Medicine [facility] documented as of this encounter
--- OUTSIDE RECORDS SUMMARY | 2024-12-11 12:01 | XMS_ITS | Clinical Summary ---
Author Organization [employer] Address [address] [place] [address] Care Team Providers Care Steaming Cabinet Tender Name Role Phone Nahomy Davies MD Primary [...] without long-term current use of insulin ([facility]) APPLY A SMALL AMOUNT TOPICALLY TO AFFECTED AREA(S) TWO TIMES A DAY 60 g 3 023 Active latanoprost (Xalatan) 0.005 % ophthalmic solution Administer 1 drop into both eyes at bedtime. 023 Active brimonidine-timol ol (Combigan) 0.2-0.5 % ophthalmic solution Administer 1 drop into both eyes 2 times daily. 023 Active Continuous Glucose Senior Tax Accountant (FreeStyle Anthony 2 [place]) device Use as directed to monitor glucose ever 8 hours. 1 each 024 Active Continuous Glucose Sensor (FreeStyle Anthony 2 Sensor) misc Use as directed to monitor glucose ever 8 hours. Replace sensor every 14 days. 2 each Active insulin glargine (Lantus SoloStar) 100 UNIT/ML penIndications:Ty pe 2 diabetes mellitus with hypoglycemia without coma, with long-term current use of insulin ([facility]) Inject 18 Units under the skin at bedtime. 30 mL Active Senna-Time 8.6 MG tablet TAKE 2 TABLETS BY MOUTH EVERY DAY AT BEDTIME FOR CONSTIPATION Active Diclofenac Sodium 1 % gel APPLY TOPICALLY EACH DAY IF NEEDED FOR SHOULDER PAIN (BULK) 100 g 5 Active glucose 4 g chewable tabletIndications :Type 2 diabetes mellitus with other specified complication, with long-term current use of insulin ([facility]) CHEW AND SWALLOW 4 TABLETS BY MOUTH IF NEEDED FOR LOW BLOOD SUGAR (BULK) 50 tablet 3 Active Continuous Glucose Senior Tax Accountant (FreeStyle Anthony 3 [place]) deviceIndications :Type 2 diabetes mellitus with other specified complication, with long-term current use of insulin ([facility]) 1 each Once per day. Use as directed for CGM 1 each Active Continuous Glucose Sensor (FreeStyle Anthony 3 Plus Sensor) miscIndications:T ype 2 diabetes mellitus with other specified complication, with long-term current use of insulin ([facility]) 1 each every 15 days. Apply 1 every 15 days as directed for CGM 2 each Active Icosapent Ethyl (Vascepa) 1 g capsule Take 2 capsules (2 g) by mouth with breakfast and with evening meal. 120 capsule 2025 Active ferrous gluconate (Fergon) 324 (38 Fe) MG tabletIndications :Iron deficiency anemia, unspecified iron deficiency anemia type TAKE ONE TABLET BY MOUTH EVERY DAY WITH BREAKFAST 30 tablet Active Ascorbic Acid (vitamin C) 250 MG tabletIndications :Iron deficiency anemia, unspecified iron deficiency anemia type TAKE ONE TABLET BY MOUTH EVERY MORNING ^1R1 30 tablet Active glucose blood (FreeStyle Precision Mahesh Test) test stripIndications: Type 2 diabetes mellitus without complication, without long-term current use of insulin ([facility]) USE TO TEST BLOOD SUGAR THREE TIMES A DAY 100 each Active metFORMIN XR (Glucophage-XR) 500 MG 24 hr tabletIndications :Type 2 diabetes mellitus without complication, without long-term current use of insulin ([facility]) TAKE TWO TABLETS BY MOUTH TWICE A DAY WITH FOOD 112 tablet Active metoprolol succinate XL (Toprol-XL) 50 MG 24 hr tabletIndications :Essential hypertension TAKE ONE TABLET BY MOUTH EVERY DAY ^1R1 30 tablet Active aspirin (Aspirin Low Dose) 81 MG EC tablet TAKE ONE TABLET BY MOUTH EVERY DAY 30 tablet Active Calcium Carb-Cholecalcife rol (Calcium + Vitamin D3) 600-10 MG-MCG tabletIndications :Osteopenia determined by x-ray Take 1 tablet by mouth 2 times daily. TAKE ONE TABLET BY MOUTH TWICE A DAY 60 tablet Active cholecalciferol VITAMIN D (Vitamin D-3) 50 MCG (2000 UT) capsule TAKE ONE CAPSULE BY MOUTH EVERY DAY 30 capsule Active levothyroxine (Synthroid, Levoxyl) 75 MCG tabletIndications :Acquired hypothyroidism TAKE ONE TABLET BY MOUTH EVERY DAY BEFORE BREAKFAST 30 tablet Active Multiple Vitamin (Tab-A-Nelly) tablet TAKE ONE TABLET BY MOUTH EVERY DAY 30 tablet Active melatonin 5 MG tabletIndications :Sleep disturbance TAKE ONE TABLET BY MOUTH AT BEDTIME 30 tablet Active Alcohol Swabs (Easy Touch Alcohol Prep Medium) 70 % padsIndications:T ype 2 diabetes mellitus without complication, unspecified whether manager intermediate insulin use ([facility]) Apply 1 Act topically at noon and 1 Act in the evening. USE TO TEST BLOOD SUGAR AND ADMINISTER INSULIN AT NOON AND IN THE EVENING (5-7 TIMES DAILY ) (BULK). 200 each Active omeprazole (PriLOSEC) [address] capsule Take 1 capsule (20 mg) by mouth before breakfast. Do not crush or chew.TAKE ONE CAPSULE BY MOUTH EVERY DAY BEFORE MEALS ^1R1 90 capsule 025 2025 Active insulin lispro (HumaLOG) 100 UNIT/ML injection To use three times a day with meals as sliding scale If glucose from 150 to 200 to use 2 units , 201-250 4 units, 251 to 300 6 units, 301 to 350 8 units 1 each 2 Active cyanocobalamin (Vitamin B-12) 1000 MCG tabletIndications :Cobalamin deficiency TAKE 1 TABLET BY MOUTH ONCE A DAY 30 tablet Active fluticasone-salme terol (Advair) 115-21 MCG/ACT inhaler Inhale 2 puffs in the morning and at bedtime. Rinse mouth with water after use to reduce aftertaste and incidence of candidiasis. Do not swallow. 12 g 2025 Active losartan (Cozaar) 25 MG tablet Take 1 tablet (25 mg) by mouth Once per day. 30 tablet 2025 Active lidocaine (Lidoderm) 5 % patchIndications: Chronic neck pain APPLY ONE PATCH TOPICALLY ONCE DAILY - REMOVE AND DISCARD PATCH WITHIN 12 HOURS OR DIRECTED BY MD (BULK) 30 patch Active Januvia 50 MG tablet TAKE ONE TABLET BY MOUTH EVERY DAY ^1R1 30 tablet Active Acetaminophen Extra Strength 500 MG tabletIndications :Type 2 diabetes mellitus without complication, without long-term current use of insulin ([facility]) TAKE ONE TO TWO TABLETS BY MOUTH THREE TIMES A DAY NEEDED (VIAL) 60 tablet 1 Active BD Pen Needle Short Ultrafine 31G X 8 MM misc USE DIRECTED ONCE DAILY (BULK) 100 each Active FreeStyle lancets USE TO TEST BLOOD SUGAR THREE TIMES A DAY (BULK) 200 each Active pregabalin (Lyrica) 100 MG capsule TAKE ONE CAPSULE BY MOUTH TWICE A DAY 56 capsule Active albuterol 108 (90 Base) MCG/ACT inhalerIndication s:Shortness of breath INHALE TWO PUFFS BY MOUTH FOUR TIMES A DAY (BULK) 8.5 g Active atorvastatin (Lipitor) 40 MG tablet Take 1 tablet (40 mg) by mouth Once per day. 90 tablet 3 025 2025 Active pen needle 31G x 8 mm misc USE DAILY as INSTRUCTED 100 each 024 2024 Discontinued lidocaine (Lidoderm) 5 % patchIndications: Chronic neck pain APPLY ONE PATCH TOPICALLY ONCE DAILY - REMOVE AND DISCARD PATCH WITHIN 12 HOURS OR DIRECTED BY (BULK) 30 patch 3 024 2024 Discontinued(R eorder (will not trigger notification to Pharmacy)) albuterol 108 (90 Base) MCG/ACT inhalerIndication s:Shortness of breath INHALE TWO PUFFS BY MOUTH FOUR TIMES A DAY (BULK) 8.5 g 3 024 2024 Discontinued(R eorder (will not trigger notification to Pharmacy)) FreeStyle lancets 1 each by Other route 3 times daily. USE TO TEST BLOOD SUGAR THREE TIMES A DAY 200 each 3 025 2024 Discontinued Januvia 50 MG tablet TAKE ONE TABLET BY MOUTH EVERY DAY ^1R1 30 tablet 3 025 2024 Discontinued pregabalin (Lyrica) 100 MG capsule TAKE ONE CAPSULE BY MOUTH TWICE A DAY 56 capsule 1 025 2024 Discontinued atorvastatin (Lipitor) 40 MG tablet Take 1 tablet (40 mg) by mouth Once per day. 90 tablet 025 2024 Discontinued(R eorder (will not trigger notification to Pharmacy)) Acetaminophen Extra Strength 500 MG tabletIndications :Type 2 diabetes mellitus without complication, without long-term current use of insulin ([facility]) TAKE ONE TO TWO TABLETS BY MOUTH THREE TIMES A DAY NEEDED (VIAL) 60 tablet 1 025 2024 Discontinued Active Problems Problem Noted Date Diagnosed Date Headache 09/26/2024 Pseudopolyposis of colon, un specified complication status, unspecified part of colon 08/29/2024 Scalp lesion 08/29/2024 Intestinal metaplasia of stomach 01/25/2024 Left shoulder pain 11/22/2023 Stress incontinence [...] Encounters Date Type Department Care Team Description 11/28/2024 Refill [facility] [address] [place] [address] Nahomy Davies MD Shortness of breath 11/27/2024 Refill [facility] [address] [place] [address] Nahomy Davies MD Shortness of breath; Type 2 diabetes mellitus without complication, without long-term current use of insulin ([facility]) 11/25/2024 Refill [facility] [address] [place] [address] Nahomy Davies MD 11/22/2024 Telephone [facility] [address] [place] [address] Nahomy Davies MD telephone call 11/21/2024 Refill [facility] [address] [place] [address] Sabrina Gonzalez NP 11/20/2024 Telephone [facility] [address] [place] [address] Nahomy Davies MD fyi 11/19/2024 Refill [facility] [address] [place] [address] Nahomy Davies MD 11/16/2024 Refill [facility] [address] [place] [address] Nahomy Davies MD Type 2 diabetes mellitus without complication, without long-term current use of insulin ([facility]) 11/15/2024 Results Follow-Up [facility] [address] [place] [address] Abdomen Pelvis w/o Contrast 11/15/2024 Orders Only [facility] External Provider, [facility] 11/14/2024 8:40 AM EDT Office Visit [facility] [address] [place] [id number] Jp Snow MD Chronic right-sided low back pain with right-sided sciatica (Primary Dx); Chronic neck pain 11/14/2024 Travel 11/08/2024 Orders Only [facility] [address] [place] [address] Nahomy Davies MD 10/31/2024 Refill [facility] [address] [place] [phone] Sabrina Gonzalez NP 10/31/2024 Refill [facility] [address] [place] [address] Nahomy Davies MD Type 2 diabetes mellitus without complication, without long-term current use of insulin ([facility]) 10/30/2024 1:30 PM EDT Office Visit [facility] [address] [place] [address] Nahomy Davies MD Chronic pain of both shoulders (Primary Dx); Abnormal CXR; Numbness; Type 2 diabetes mellitus with other specified complication, with long-term current use of insulin ([facility]); Paralysis ([facility]); Mixed hyperlipidemia; Parotid nodule; Class 2 obesity due to excess calories without serious comorbidity with body mass index (BMI) of 35.0 to 35.9 in adult; Health care maintenance; Acute pain of left shoulder; Chronic nonintractable headache, unspecified headache type; Mild persistent asthma with acute exacerbation 10/30/2024 Travel 10/29/2024 Telephone [facility] [address] [place] [address] Nahomy Davies MD chart prep 10/22/2024 Refill [facility] [address] [place] [address] Nahomy Davies MD Cobalamin deficiency 10/22/2024 Refill [facility] [address] [place] [address] Nahomy Davies MD Cobalamin deficiency 10/19/2024 10:30 AM EDT Clinical Support [facility] [address] [place] [address] Fanny Villegas RN Type 2 diabetes mellitus with other specified complication, with long-term current use of insulin ([facility]); Essential hypertension 10/19/2024 Orders Only [facility] [address] [place] [address] Nahomy Davies MD 10/19/2024 Telephone [facility] [address] [place] [address] Nahomy Davies MD Appointment 10/19/2024 Orders Only [facility] [address] [place] [address] Nahomy Davies MD 10/19/2024 Travel 10/10/2024 Telephone [facility] [address] [place] [address] Kiarra Iniguez RN [facility] 10/05/2024 Telephone [facility] [address] [place] [address] Kiarra Iniguez RN Appointment Request; Referral 10/04/2024 Orders Only [facility] [address] [place] [address] Nahomy Davies MD Nonintractable headache, unspecified chronicity pattern, unspecified headache type (Primary Dx); Elevated C-reactive protein (CRP); Blurry vision, bilateral 10/03/2024 Refill [facility] [address] [place], [place] [phone] Nahomy Davies MD Cobalamin deficiency 10/01/2024 Orders Only [facility] [address] [place] [address] Nhaomy aDvies MD Chronic pain of both shoulders (Primary Dx) 10/01/2024 Results Follow-Up [address] [address] Nahomy Davies MD XR Chest 2 Views, XR Shoulder 2+ Views Right, XR Shoulder 2+ Views Left, Additional followed-up results: 2 10/01/[address] [address] Nahomy Davies MD Referral 09/28/[address] [address] Nahomy Davies MD ENT no APPT 09/26/2024 2:15 PM EDT Office Visit [address] [address] Nahomy Davies MD Chronic pain of both shoulders (Primary Dx); Thyroid nodule; Annual physical exam; SOB (shortness of breath); Lower extremity edema; Type 2 diabetes mellitus with other specified complication, with long-term current use of insulin ([facility]); Foot callus; Nonintractable headache, unspecified chronicity pattern, unspecified headache type; Essential hypertension; Parotid nodule; Acquired hypothyroidism; Class 2 obesity due to excess calories without serious comorbidity with body mass index (BMI) of 35.0 to 35.9 in adult; Obesity, morbid (CMS/HCC); Health care maintenance; Acute pain of left shoulder; Knee pain, unspecified chronicity, unspecified laterality; Mild persistent asthma with acute exacerbation; Scalp lesion 09/26/2024 Telephone [facility] [address] [place] [address] Nahomy Davies MD Appointment Request 09/26/2024 Travel 09/25/2024 Telephone [facility] [address] [place] [address] Lori Borjas MA chart prep 09/19/2024 Results Follow-Up [facility] [address] [place] [address] Nahomy Davies MD XR Skull 1-3 Views from Last 3 Months Immunizations Immunization Administration Dates Next Due Hep B, adult [...] PCV 20 10/15/2022 Pneumococcal Polysaccharide PPSV23 11/08/2011, RSV Bivalent 10/01/2024 TD (adult), 2 Lf tetanus tox oid, [...] Sign Reading Time Taken Comments Blood Pressure 111/70 11/14/2024 8:41 AM EDT Pulse 72 11/14/2024 8:41 AM EDT Temperature 36.7 C (98 F) 11/14/2024 8:41 AM EDT Respiratory Rate 18 11/14/2024 8:41 AM EDT Oxygen Saturation 95% 11/14/2024 8:41 AM EDT Inhaled Oxygen Concentration - - Weight 90.6 kg (199 lb 12.8 oz) 11/14/2024 8:41 AM EDT Height 160 cm (5' 3 ) 10/30/2024 1:40 PM EDT Body Mass Index 35.39 10/30/2024 1:40 PM EDT Plan of Treatment Upcoming Encounters Date Type Department Care Team (Late st Contact Info) Description 01/18/2025 9:15 AM EDT Office Visit [facility] [address] [place] [address] Karrie Carlisle MD [address] [place] [address] Health Maintenance Due Date Last Done Comments Diabetes: Foot Exam 1955 Eye Exam 1955 COVID-19 Vaccine ( season) 2024 01/24/2024, 04/15/2023, 06/26/2020, Additional history exists Influenza Vaccine (#1) 2024 , 03/08/2023, 03/10/2018, Additional history exists Diabetes: Hemoglobin A1C 01/04/2025 025, 08/28/2024, 11/22/2023, Additional history exists Mammogram 08/16/2025 08/16/2024, 05/12, 02/12/2021, Additional history exists Alcohol/Substance Use Screening 08/28/2025 08/28/2024 SDOH Screening 08/28/2025 08/28/2024 Depression Screening 09/26/2025 09/26/2024, 09/27/19 25 Diabetes: Urine Protein Screening 10/04/2025 10/04/2024, 11/22/2023, 03/22/2023, Additional history exists Lipid Panel 10/04/2025 10/04/2024, 08/08/2023, 03/22/2023, Additional history exists Tobacco Screening 11/14/2025 11/14/2024 DTaP/Tdap/Td Vaccines (3 - Td or Tdap) 10/15/2032 10/15/2022, 06/12/2012, 03/13/2009, Additional history exists Hepatitis B Vaccines Completed 04/15/2014, 07/03/2013, 03/02/2013 Pneumococcal Vaccine: 50+ Years Completed 10/15/2022, 02/03/2015, 11/08/2011, Additional history exists Hepatitis C Screening Completed 03/22/2023, 022 Zoster Vaccines Completed 07/07/2023, 04/12, 07/31/2015 RSV Patients and Patients Aged 60 years or older Completed 10/01/2024 HIB Vaccines Aged Out No longer eligi [...] patient's age to complete this topic Meningococcal B Vaccine Aged Out No l onger eligible based on patient's age to complete [...] Name Priority Date/Time Associated Diagnosis Comments CT ABDOMEN PELVIS WO CONTRAST Routine 11/15/2024 10:28 AM EDT CULTURE, URINE, ROUTINE Routine 11/14/2024 9:12 AM EDT Chronic right-sided low back pain with right-sided sciatica XR LUMBAR SPINE 2-3 VIEWS Routine 11/14/2024 8:29 AM EDT Chronic right-sided low back pain with right-sided sciatica VASC US LOWER EXTREMITY VENOUS INSUFFICIENCY BILATERAL Routine 11/02/2024 10:47 AM EDT Lower extremity edema MR BRAIN WO CONTRAST Routine 10/20/2024 10:35 AM EDT Nonintractable headache, unspecified chronicity pattern, unspecified headache type SED RATE BY MODIFIED WESTERGREN Routine 10/04/2024 9:16 AM EDT Nonintractable headache, unspecified chronicity pattern, unspecified headache type C-REACTIVE PROTEIN Routine 10/04/2024 9: 16 AM EDT Nonintractable headache, unspecified chronicity pattern, unspecified headache type B TYPE NATRIURETIC PEPTIDE (BNP) Routine 10/04/2024 9:16 AM EDT SOB (shortness of breath) TSH Routine 10/04/2024 9:16 AM EDT Annual physical exam T4, FREE Routine 10/04/2024 9:16 AM EDT Annual physical exam FERRITIN Routine 10/04/2024 9:16 AM EDT Annual physical exam IRON AND TOTAL IRON BINDING CAPACITY Routine 10/04/2024 9:16 AM EDT Annual physical exam VITAMIN D,25-OH,TOTAL,IA Routine 10/04/2024 9:16 AM EDT Annual physical exam VITAMIN B12/FOLATE, SERUM PANEL Routine 10/04/2024 9:16 AM EDT Annual physical exam LIPID PANEL, STANDARD Routine 10/04/2024 9:16 AM EDT Annual physical exam HEMOGLOBIN A1C Routine 10/04/2024 9:16 AM EDT Annual physical exam COMPREHENSIVE METABOLIC PANEL Routine 10/04/2024 9:16 AM EDT Annual physical exam CBC Routine 10/04/2024 9:16 AM EDT Annual physical exam ALBUMIN, RANDOM URINE W/CREATININE Routine 10/04/2024 9:16 AM EDT Annual physical exam XR CHEST 2 VIEWS Routine 10/01/2024 9:16 AM EDT SOB (shortness of breath) XR SHOULDER 2+ VIEWS RIGHT Routine 10/01/2024 9:11 AM EDT Chronic pain of both shoulders XR SHOULDER 2+ VIEWS LEFT Routine 10/01/2024 9:04 AM EDT Chronic pain of both shoulders XR SKULL 1-3 VIEWS Routine 09/19/2024 9: 31 AM EDT Nonintractable headache, unspecified chronicity pattern, unspecified headache type BI MAMMOGRAM SCREENING TOMOSYNTHESIS BILATERAL Routine 08/16/2024 11:21 AM EDT HEPATITIS C AB W/REFL TO HCV RNA, QN, PCR Routine 03/22/2023 8:23 AM EST Annual physical exam from Last 3 Months or Most Recently Relevant to Health Maintenance Results * CT Abdomen Pelvis w/o Contrast (11/15/2024 10:28 AM EDT) Anatomical Region Laterality Modality Body, Pelvis, Abdomen Computed T omography 11/15/2024 10:2 8 AM EDT Narrative 11/15/2024 11:56 AM EDT [place] [address] CT Scan Report Signed Patient: Arlette Dias MR#: [id number] : 1945 Acct:[id number] Age/Sex: 79 / F ADM Date: 11/15/24 Loc: HO.ED Attending Dr: Ordering Physician: Sekou North MD Date of Service: 11/15/24 Procedure(s): CT abdomen pelvis wo IV con Accession Number(s): [id number] cc: Sekou North MD; Nahomy Davies MD Report Number: [id number]: Total DLP = 673.00 mGy-cm EXAMINATION: CT ABDOMEN PELVIS WITHOUT IV CONTRAST HISTORY: right flank pain COMPARISON: Comparison is made with the prior examination dated 01/20/2022. TECHNIQUE: CT scan of the abdomen and pelvis was performed without contrast using standard departmental protocol. Coronal and sagittal reformatted images were generated and reviewed. Oral contrast material was not administered per department protocol. This CT exam was performed with one or more of the following dose reduction techniques: automated exposure control, adjustment of the mA and/or kV according to patient size, use of iterative reconstruction technique. DLP: 673 mGy-cm FINDINGS: LOWER CHEST: Again seen is a subcentimeter subpleural nodule at the lateral aspect of the right lung base. There is no pleural effusion. CARDIOVASCULATURE: The heart is normal in size. There is no pericardial effusion. LIVER: The liver is normal in size and contour. The liver has an unremarkable unenhanced appearance. GALLBLADDER / BILE DUCTS: The gallbladder is surgically absent. There is no intra or extrahepatic biliary ductal dilatation. SPLEEN: The spleen is normal in size and has an unremarkable unenhanced appearance. PANCREAS: The pancreas has an unremarkable unenhanced appearance. ADRENAL GLANDS: Unremarkable. KIDNEYS/RETROPERITONEUM: No renal or ureteral calculi are identified. There is no hydronephrosis or hydroureter. There is a 3.4 cm cyst at the upper pole of the right kidney and a 2.8 cm cyst at the upper pole of the left kidney. An additional 1.3 cm cyst is seen at the lower pole of the left kidney.. LYMPH NODES: No retroperitoneal lymphadenopathy is identified in the abdomen or pelvis. VASCULATURE: The abdominal aorta is normal in caliber. MESENTERY/PERITONEUM: No free fluid. No masses. There is no free intraperitoneal gas. STOMACH: The stomach is collapsed, limiting evaluation. SMALL BOWEL: The small bowel is normal in caliber. COLON: There is diverticulosis of the sigmoid colon without evidence of diverticulitis. APPENDIX: Normal. URINARY BLADDER/PELVIC ORGANS: The urinary bladder is unremarkable. The patient is status post hysterectomy. BONES / SOFT TISSUES: No suspicious bony or soft tissue abnormalities. CT/CT abdomen pelvis wo IV con IMPRESSION: 1. No evidence of nephrolithiasis or ureteral obstruction. 2. Sigmoid diverticulosis without evidence of diverticulitis. Electronically signed by: Grzegorz Borden MD 11/15/2024 11:53 AM EDT Dictated By: Grzegorz Borden MD Signed By: <Electronically signed by Grzegorz Borden MD in OV> 11/15/24 1153 DD/ 1028 TD/TT: 11/15/24 1143 Intervention Nurse: Procedure Note Donotuseinterpreter, Image - 11/15/[address] [place] [address] [address] Scan Report Signed Patient: Gifty DiasR#: [id number] : 7Acct:[id number] Age/Sex: 79 / FADM Date: 11/15/24 Loc: HO.ED Attending Dr: Ordering Physician: Sekou North MD Date of Service: 11/15/24 Procedure(s): CT abdomen pelvis wo IV con Accession Number(s): [id number] cc: Sekou North MD; Nahomy Davies MD Report Number: [id number]: Total DLP = 673.00 mGy-cm EXAMINATION: CT ABDOMEN PELVIS WITHOUT IV CONTRAST HISTORY: right flank pain COMPARISON: Comparison is made with the prior examination dated 01/20/2022. TECHNIQUE: CT scan of the abdomen and pelvis was performed without contrast using standard departmental protocol. Coronal and sagittal reformatted images were generated and reviewed. Oral contrast material was not administered per department protocol. This CT exam was performed with one or more of the following dose reduction techniques: automated exposure control, adjustment of the mA and/or kV according to patient size, use of iterative reconstruction technique. DLP: 673 mGy-cm FINDINGS: LOWER CHEST: Again seen is a subcentimeter subpleural nodule at the lateral aspect of the right lung base. There is no pleural effusion. CARDIOVASCULATURE: The heart is normal in size. There is no pericardial effusion. LIVER: The liver is normal in size and contour. The liver has an unremarkable unenhanced appearance. GALLBLADDER / BILE DUCTS: The gallbladder is surgically absent. There is no intra or extrahepatic biliary ductal dilatation. SPLEEN: The spleen is normal in size and has an unremarkable unenhanced appearance. PANCREAS: The pancreas has an unremarkable unenhanced appearance. ADRENAL GLANDS: Unremarkable. KIDNEYS/RETROPERITONEUM: No renal or ureteral calculi are identified. There is no hydronephrosis or hydroureter. There is a 3.4 cm cyst at the upper pole of the right kidney and a 2.8 cm cyst at the upper pole of the left kidney. An additional 1.3 cm cyst is seen at the lower pole of the left kidney.. LYMPH NODES: No retroperitoneal lymphadenopathy is identified in the abdomen or pelvis. VASCULATURE: The abdominal aorta is normal in caliber. MESENTERY/PERITONEUM: No free fluid. No masses. There is no free intraperitoneal gas. STOMACH: The stomach is collapsed, limiting evaluation. SMALL BOWEL: The small bowel is normal in caliber. COLON: There is diverticulosis of the sigmoid colon without evidence of diverticulitis. APPENDIX: Normal. URINARY BLADDER/PELVIC ORGANS: The urinary bladder is unremarkable. The patient is status post hysterectomy. BONES / SOFT TISSUES: No suspicious bony or soft tissue abnormalities. CT/CT abdomen pelvis wo IV con IMPRESSION: 1. No evidence of nephrolithiasis or ureteral obstruction. 2. Sigmoid diverticulosis without evidence of diverticulitis. Electronically signed by: Grzegorz Borden MD 11/15/2024 11:53 AM EDT Dictated By: Grzegorz Borden MD Signed By: <Electronically signed by Grzegorz Borden MD in OV> 11/15/24 1153 DD/ 1028 TD/TT: 11/15/24 1143 Intervention Nurse: [facility] External Provider IMG CT PROCEDURES Final Result * Culture, Urine, Routine (11/14/2024 9:12 AM EDT) Urine Urine specimen obtained by clean catch procedure / Unknown 11/14/2024 9:12 AM EDT 11/14/2024 5:14 PM EDT Comment:UACC Narrative [facility] - 11/16/2024 10:42 AM EDT Urine Culture No growth. Specimen Source: Urine clean catch Jp Snow MD LAB MICROBIOLOGY - GENERAL ORDER CARLOS Final Result [facility] [address] [place] [phone] * XR Lumbar Spine 2-3 Views (11/14/2024 8:29 AM EDT) Anatomical Region Laterality Modality Spine, L-spine Radiographic Sylvia ging 11/14/2024 8:29 AM EDT Narrative 11/14/2024 9:50 AM EDT [facility] [address] [place] [address] XRay Report Signed Patient: Arlette Dias MR#: [id number] : 1945 Acct:[id number] Age/Sex: 79 / F ADM Date: 11/14/24 Loc: HO.HHCX Attending Dr: Jp Snow MD Ordering Physician: JP SNOW MD Date of Service: 11/14/24 Procedure(s): XR lumbar spine 2-3V Accession Number(s): [id number] cc: JP SNOW MD EXAMINATION: XR LUMBOSACRAL SPINE CLINICAL INFORMATION: exacerbation of right LBP with right radiculopathy. COMPARISON: None available. TECHNIQUE: Three views of the lumbosacral spine. FINDINGS: There is a minimal levoconvex scoliosis, possibly positional. There is a normal lordosis. There are no fractures, compression deformities, or suspicious bone lesions. There is mild to moderate multilevel disc degeneration present, and facet degeneration spanning L3-S1. No subluxations of significance. The sacrum and SI joints appear normal. Soft tissues demonstrate early vascular calcifications. XR/XR lumbar spine 2-3V IMPRESSION: 1. No acute bony abnormalities of the lumbar spine. 2. Mild to moderate spondylosis. Electronically signed by: Jony Jama MD 11/14/2024 09:47 AM EDT Dictated By: Jony Jama MD Signed By: <Electronically signed by Jony Jama MD in OV> 11/14/2447 DD/ 08 TD/TT: 11/14/24 0900 Intervention Nurse: Procedure Note Donotuseinterpreter, Image - 11/14/2024 [facility] [address] [place] [address] XRay Report Signed Patient: Gifty DiasR#: [id number] : 1945cct:[id number] Age/Sex: 79 / FADM Date: 11/14/24 Loc: HO.HHCX Attending Dr: Jp Snow MD Ordering Physician: JP SNOW MD Date of Service: 11/14/24 Procedure(s): XR lumbar spine 2-3V Accession Number(s): [id number] cc: JP SNOW MD EXAMINATION: XR LUMBOSACRAL SPINE CLINICAL INFORMATION: exacerbation of right LBP with right radiculopathy. COMPARISON: None available. TECHNIQUE: Three views of the lumbosacral spine. FINDINGS: There is a minimal levoconvex scoliosis, possibly positional. There is a normal lordosis. There are no fractures, compression deformities, or suspicious bone lesions. There is mild to moderate multilevel disc degeneration present, and facet degeneration spanning L3-S1. No subluxations of significance. The sacrum and SI joints appear normal. Soft tissues demonstrate early vascular calcifications. XR/XR lumbar spine 2-3V IMPRESSION: 1. No acute bony abnormalities of the lumbar spine. 2. Mild to moderate spondylosis. Electronically signed by: Jony Jama MD 11/14/2024 09:47 AM EDT Dictated By: Jony Jama MD Signed By: <Electronically signed by Jony Jama MD in OV> 11/14/24 0947 DD/ 08 TD/TT: 11/14/24 09 Intervention Nurse: us Jp Snow MD IMG XR PROCEDURES Edited Result - Final * Vascular US lower extremity venous insufficiency bilateral (11/02/2024 10:47 AM EDT) 11/02/2024 10:4 7 AM EDT Narrative [facility] - 11/02/2024 11:38 AM EDT [facility] [address] [place] [phone] Ultrasound Report Signed Patient: Arlette Dias MR#: [id number] : 1945 Acct:[id number] Age/Sex: 79 / F ADM Date: 11/02/24 Loc: HO. Attending Dr: Nahomy Kessler MD Ordering Physician: Nahomy Davies MD Date of Service: 11/02/24 Procedure(s): US venous insuf bilat Accession Number(s): [id number] cc: Nahomy Davies MD EXAMINATION: US LOWER EXTREMITY VENOUS (REFLUX EXAM), BILATERAL CLINICAL INFORMATION: Lower extremity edema. COMPARISON: None. TECHNIQUE: Color flow triplex imaging and compression Doppler was performed to evaluate both the deep and the superficial systems bilaterally. To evaluate the superficial system, the examination was performed in the upright position. Color-flow Doppler ultrasound and compression ultrasound were utilized. In addition, maneuvers were utilized to demonstrate reflux. FINDINGS: 1. DEEP VENOUS ULTRASOUND OF THE RIGHT LOWER EXTREMITY: Common Femoral Vein: Compressible, normal respiratory variation and augmented flow. Femoral Vein: Compressible, normal color flow and augmentation. Popliteal Vein: Compressible, normal augmentation. Deep Reflux: There is no evidence of reflux in the deep system in either the common femoral vein, superficial femoral or the popliteal vein. There is no evidence of a Sorto's cyst. 2. SUPERFICIAL ULTRASOUND WITH DOPPLER OF RIGHT LOWER EXTREMITY: GREAT SAPHENOUS VEIN: Saphenofemoral Junction: 0.5 cm; Reflux: 0 ms Proximal Thigh: 0.4 cm; Reflux: 0 ms Mid Thigh: 0.2 cm; Reflux: 0 ms Distal Thigh: 0.2 cm; Reflux: 0 ms At Knee: 0.2 cm; Reflux: 0 ms Proximal Calf: Not identified. Mid Calf: 0.2 cm; Reflux: 0 ms Distal Calf: 0.3 cm; Reflux: 0 ms DUPLICATED MEDIAL GREAT SAPHENOUS VEIN: Diameter: None imaged Reflux: NA DUPLICATED LATERAL GREAT SAPHENOUS VEIN: Diameter: 0.2-0.3 cm. Reflux: NA SMALL SAPHENOUS VEIN: Saphenopopliteal Junction: 0.4 cm; Reflux: 0 ms Proximal: 0.2 cm; Reflux: 0 ms Distal: 0.3 cm; Reflux: 0 ms VEIN OF GIACOMINI: Size: NA Reflux: NA PERFORATORS: Location: Distal calf. Size: 0.3 cm. Reflux: NA VARICOSITIES: Location: None imaged. Size: NA Reflux: NA 3. DEEP VENOUS ULTRASOUND OF THE LEFT LOWER EXTREMITY: Common Femoral Vein: Compressible, normal respiratory variation and augmented flow. Femoral Vein: Compressible, normal color flow and augmentation. Popliteal Vein: Compressible, normal augmentation. Deep Reflux: There is no evidence of reflux in the deep system in either the common femoral vein, superficial femoral or the popliteal vein. There is no evidence of a Sorto's cyst. 4. SUPERFICIAL ULTRASOUND WITH DOPPLER OF LEFT LOWER EXTREMITY: GREAT SAPHENOUS VEIN: Saphenofemoral Junction: 0.6 cm; Reflux: 0 ms Proximal Thigh: 0.4 cm; Reflux: 0 ms Mid Thigh: 0.2 cm; Reflux: 0 ms Distal Thigh: 0.1 cm; Reflux: 0 ms At Knee: 0.2 cm; Reflux: 0 ms Proximal Calf: 0.2 cm; Reflux: 0 ms Mid Calf: 0.3 cm; Reflux: 0 ms Distal Calf: 0.2 cm; Reflux: 0 ms DUPLICATED MEDIAL GREAT SAPHENOUS VEIN: Diameter: None imaged Reflux: NA DUPLICATED LATERAL GREAT SAPHENOUS VEIN: Diameter: 0.2-0.3 cm. Reflux: NA SMALL SAPHENOUS VEIN: Saphenopopliteal Junction: 0.4 cm; Reflux: 0 ms Proximal: 0.3 cm; Reflux: 0 ms Distal: 0.2 cm; Reflux: 0 ms VEIN OF GIACOMINI: Size: NA Reflux: NA PERFORATORS: Location: Distal calf. Size: 0.3 cm. Reflux: NA VARICOSITIES: Location: None Imaged Size: NA Reflux: NA US/US venous insuf bilat IMPRESSION: Right: No venous insufficiency. Perforators without reflux in the distal calf. Chronic changes, distal calf, great saphenous vein. Left: No venous insufficiency. Perforators without reflux in the mid calf. Electronically signed by: Xander Hurt MD 11/02/2024 11:36 AM EDT Dictated By: Xander Castellanos MD Signed By: <Electronically signed by Xander Villegas MD in OV> 11/02/24 1136 DD/ 1047 TD/TT: 11/02/24 1118 Intervention Nurse: Procedure Note Donotuseinterpreter, Image - 11/02/2024 [place] [address] Ultrasound Report Signed Patient: Gifty DiasR#: [id number] : [birth year]Acct:[id number] Age/Sex: 79 / FADM Date: 11/02/24 Loc: HO.US Attending Dr: Nahomy Kessler MD Ordering Physician: Nahomy Davies MD Date of Service: 11/02/24 Procedure(s): US venous insuf bilat Accession Number(s): [id number] cc: Nahomy Davies MD EXAMINATION: US LOWER EXTREMITY VENOUS (REFLUX EXAM), BILATERAL CLINICAL INFORMATION: Lower extremity edema. COMPARISON: None. TECHNIQUE: Color flow triplex imaging and compression Doppler was performed to evaluate both the deep and the superficial systems bilaterally. To evaluate the superficial system, the examination was performed in the upright position. Color-flow Doppler ultrasound and compression ultrasound were utilized. In addition, maneuvers were utilized to demonstrate reflux. FINDINGS: 1. DEEP VENOUS ULTRASOUND OF THE RIGHT LOWER EXTREMITY: Common Femoral Vein: Compressible, normal respiratory variation and augmented flow. Femoral Vein: Compressible, normal color flow and augmentation. Popliteal Vein: Compressible, normal augmentation. Deep Reflux: There is no evidence of reflux in the deep system in either the common femoral vein, superficial femoral or the popliteal vein. There is no evidence of a Sorto's cyst. 2. SUPERFICIAL ULTRASOUND WITH DOPPLER OF RIGHT LOWER EXTREMITY: GREAT SAPHENOUS VEIN: Saphenofemoral Junction: 0.5 cm; Reflux: 0 ms Proximal Thigh: 0.4 cm; Reflux: 0 ms Mid Thigh: 0.2 cm; Reflux: 0 ms Distal Thigh: 0.2 cm; Reflux: 0 ms At Knee: 0.2 cm; Reflux: 0 ms Proximal Calf: Not identified. Mid Calf: 0.2 cm; Reflux: 0 ms Distal Calf: 0.3 cm; Reflux: 0 ms DUPLICATED MEDIAL GREAT SAPHENOUS VEIN: Diameter: None imaged Reflux: NA DUPLICATED LATERAL GREAT SAPHENOUS VEIN: Diameter: 0.2-0.3 cm. Reflux: NA SMALL SAPHENOUS VEIN: Saphenopopliteal Junction: 0.4 cm; Reflux: 0 ms Proximal: 0.2 cm; Reflux: 0 ms Distal: 0.3 cm; Reflux: 0 ms VEIN OF GIACOMINI: Size: NA Reflux: NA PERFORATORS: Location: Distal calf. Size: 0.3 cm. Reflux: NA VARICOSITIES: Location: None imaged. Size: NA Reflux: NA 3. DEEP VENOUS ULTRASOUND OF THE LEFT LOWER EXTREMITY: Common Femoral Vein: Compressible, normal respiratory variation and augmented flow. Femoral Vein: Compressible, normal color flow and augmentation. Popliteal Vein: Compressible, normal augmentation. Deep Reflux: There is no evidence of reflux in the deep system in either the common femoral vein, superficial femoral or the popliteal vein. There is no evidence of a Sorto's cyst. 4. SUPERFICIAL ULTRASOUND WITH DOPPLER OF LEFT LOWER EXTREMITY: GREAT SAPHENOUS VEIN: Saphenofemoral Junction: 0.6 cm; Reflux: 0 ms Proximal Thigh: 0.4 cm; Reflux: 0 ms Mid Thigh: 0.2 cm; Reflux: 0 ms Distal Thigh: 0.1 cm; Reflux: 0 ms At Knee: 0.2 cm; Reflux: 0 ms Proximal Calf: 0.2 cm; Reflux: 0 ms Mid Calf: 0.3 cm; Reflux: 0 ms Distal Calf: 0.2 cm; Reflux: 0 ms DUPLICATED MEDIAL GREAT SAPHENOUS VEIN: Diameter: None imaged Reflux: NA DUPLICATED LATERAL GREAT SAPHENOUS VEIN: Diameter: 0.2-0.3 cm. Reflux: NA SMALL SAPHENOUS VEIN: Saphenopopliteal Junction: 0.4 cm; Reflux: 0 ms Proximal: 0.3 cm; Reflux: 0 ms Distal: 0.2 cm; Reflux: 0 ms VEIN OF GIACOMINI: Size: NA Reflux: NA PERFORATORS: Location: Distal calf. Size: 0.3 cm. Reflux: NA VARICOSITIES: Location: None Imaged Size: NA Reflux: NA US/US venous insuf bilat IMPRESSION: Right: No venous insufficiency. Perforators without reflux in the distal calf. Chronic changes, distal calf, great saphenous vein. Left: No venous insufficiency. Perforators without reflux in the mid calf. Electronically signed by: Xander Hurt MD 11/02/2024 11:36 AM EDT Dictated By: Xander Castellanos MD Signed By: <Electronically signed by Xander Villegas MDin OV> 11/02/24 1136 DD/ 1047 TD/TT: 11/02/24 1118 Intervention Nurse: us Nahomy Kessler MD CV VASCULAR PROCE JEANNE Edited Result - Final [facility] [address] [place] [phone] * MR Brain w/o Contrast (10/20/2024 10:35 AM EDT) Anatomical Region Laterality Modality Brain Magnetic Resonan ce 10/20/2024 10:3 5 AM EDT Narrative 10/22/2024 7:30 AM EDT [address] [address] Magnetic Resonance Report Signed Patient: Arlette Dias MR#: [id number] : 1945 Acct:[id number] Age/Sex: 79 / F ADM Date: 10/20/24 Loc: HO.MRI Attending Dr: Nahomy Kessler MD Ordering Physician: Nahomy Davies MD Date of Service: 10/20/24 Procedure(s): MR head/brain wo con Accession Number(s): [id number] cc: Nahomy Davies MD EXAMINATION: MR BRAIN WITHOUT IV CONTRAST HISTORY: CHICAS TECHNIQUE: Sagittal T1, and axial T1, FLAIR, T2, gradient echo, and diffusion weighted MR images of the brain were obtained. COMPARISON: Comparison is made with prior examinations dated 09/02/2023 and 02/12/2019. FINDINGS: There is diffuse prominence of the ventricular system and cortical sulci, consistent with atrophy. Periventricular and subcortical white matter hyperintensities are noted on the FLAIR and T2-weighted images which are nonspecific, but often seen in the setting of small vessel ischemic disease. The pituitary is normal in size. The cerebellar tonsils are normally located. There is no mass effect or midline shift. No intra or extra-axial fluid collections are identified. There are no foci of restricted diffusion. Normal vascular flow voids are noted in the basilar and carotid arteries. The visualized paranasal sinuses are clear. There is a 1.5 cm ovoid mass in the right parotid gland which likely represents a lymph node. MR/MR head/brain wo con IMPRESSION: No acute intracranial abnormality. Electronically signed by: Grzegorz Borden MD 10/22/2024 07:27 AM EDT RP Dictated By: Grzegorz Borden MD Signed By: <Electronically signed by Grzegorz Borden MD in OV> 10/22/24 07 DD/ 1035 TD/TT: 10/20/24 1100 Intervention Nurse: Procedure Note Donotuseinterpreter, Image - 10/22/2024 [place] [address] Magnetic Resonance Report Signed Patient: Gifty DiasR#: [id number] : 1945cct:[id number] Age/Sex: 79 / FADM Date: 10/20/24 Loc: HO.MRI Attending Dr: Nahomy Kessler MD Ordering Physician: Nahomy Davies MD Date of Service: 10/20/24 Procedure(s): MR head/brain wo con Accession Number(s): [id number] cc: Nahomy Davies MD EXAMINATION: MR BRAIN WITHOUT IV CONTRAST HISTORY: CHICAS TECHNIQUE: Sagittal T1, and axial T1, FLAIR, T2, gradient echo, and diffusion weighted MR images of the brain were obtained. COMPARISON: Comparison is made with prior examinations dated 09/02/2023 and 02/12/2019. FINDINGS: There is diffuse prominence of the ventricular system and cortical sulci, consistent with atrophy. Periventricular and subcortical white matter hyperintensities are noted on the FLAIR and T2-weighted images which are nonspecific, but often seen in the setting of small vessel ischemic disease. The pituitary is normal in size. The cerebellar tonsils are normally located. There is no mass effect or midline shift. No intra or extra-axial fluid collections are identified. There are no foci of restricted diffusion. Normal vascular flow voids are noted in the basilar and carotid arteries. The visualized paranasal sinuses are clear. There is a 1.5 cm ovoid mass in the right parotid gland which likely represents a lymph node. MR/MR head/brain wo con IMPRESSION: No acute intracranial abnormality. Electronically signed by: Grzegorz Borden MD 10/22/2024 07:27 AM EDT RP Dictated By: Grzegorz Borden MD Signed By: <Electronically signed by Grzegorz Borden MD in OV> 10/22/24726 DD/ 1035 TD/TT: 10/20/24 1100 Intervention [facility] MD IM MRI PROCEDURE S Final Result * Vitamin D, 25-Hydroxy, Total, Immunoassay (10/04/2024 9:16 AM EDT) Vitamin D 25-OH Total 69.8 >30 ng/mL [facility] Comment: Health Based Reference Values*< 20 ng/mL [id number] ng/mL Insufficient> 30 ng/mL Sufficient*Brigida TREVINO. N Engl J Med. 2007;357:266-280There is no well-established upper level of normal vitamin Dlevels. Some laboratories use 50 ng/mL as an upper limit ofnormal. However, toxicity is patient-dependent and may occurat any level. Careful correlation with the patient'spresentation is necessary and, if there is concern forvitamin D toxicity, treatment should be consideredirrespective of the serum level.Care must be taken in interpreting Vitamin D results fromdifferent laboratories and methodologies. Published datademonstrated that results from patients undergoinghemodialysis may show a negative bias when tested withvarious automated 25-OH vitamin D assays when compared toLC-MS/MS.When testing samples from patients whose predominant form ofVitamin D is Vitamin D2, such as patients receiving VitaminD2 supplementation, results that are subtherapeutic shouldbe confirmed with another method such as LC-MS/MS. Blood Venous blood specimen / Unknown 10/04/2024 9:16 AM EDT 10/04/2024 11:27 AM EDT us Nahomy Kessler MD LAB BLOOD ORDERAB LES Final Result [facility] [address] [place] [phone] * Vitamin B12 (Cobalamin) and Folate Panel, Serum (10/04/2024 9:16 AM EDT) Vitamin B12 869 200 - 900 pg/mL [facility] Comment:NORMAL 200-900 PG/ML INDETERMINATE 160-199 PG/ML DEFICIENT < 160 PG/ML Folate 14.4 > or = 4.0 ng/mL [facility] Comment:Reference Values:> o r = 4.0 ng/mL< 4.0 ng/mL suggests folate deficiency Methotrexate, aminopterin and folinic acid(leucovorin) are chemotherapeutic agents whose molecularstructures are similar to folate; therefore, the Architectfolate assay cannot be used for patients using these drugs. Blood 10/04/2024 9:16 AM EDT 10/04/2024 11:27 AM EDT us Nahomy Kessler MD LAB BLOOD ORDERAB LES Final Result Performing Organization Address [facility]/ZIP Co de Phone Number [facility] [address] [place] [phone] * Albumin, Random Urine W/Creatinine (10/04/2024 9:16 AM EDT) Creatinine, Urine 111.46 mg/dL [facility] Microalbumin Urine 31.0 mg/L [facility] Microalbum Creatinine Ratio Ur 27.8 <30 ug/mg cr [facility] Comment:Albumin/Creatinine R atio Reference Ranges: Normal: < 30 ug/mg creatinine Microalbuminuria: 30 - 300 ug/mg creatinineClinical Albuminuria: > 300 ug/mg creatinine Urine (Urine, Random) 10/04/2024 9:16 AM EDT 10/04/2024 11:22 AM EDT us Nahomy Kessler MD LAB URINE ORDERAB LES Final Result Performing Organization Address [facility] Co de Phone Number [facility] [address] [place] [phone] * (ABNORMAL) Iron And Total Iron Binding Capacity (10/04/2024 9:16 AM EDT) Iron 41 30 - 160 mcg/dL [facility] Total Iron Binding Capacity 305 228 - 428 mcg/dL [facility] Percent Iron Saturation 13(L) 15 - 50 % [facility] Unsaturated Iron Binding 264 ug/dL [facility] Blood Venous blood specimen / Unknown 10/04/2024 9:16 AM EDT 10/04/2024 11:27 AM EDT us Nahomy Kessler MD LAB BLOOD ORDERAB LES Final Result Performing Organization Address [facility] Number [facility] [address] [place] [phone] * (ABNORMAL) Sed Rate by Modified Evanergren (10/04/2024 9:16 AM EDT) Erythrocyte Sedimentation Rate 22(H) 0 - 20 MM/HR [facility] Comment:Patients with polycy themia and many hemoglobin abnormalitiesmay have depressed sed rates whereas patients with anemiamay have elevated sed rates. Blood Venous blood specimen / Unknown 10/04/2024 9:16 AM EDT 10/04/2024 11:27 AM EDT us Nahomy Kessler MD LAB BLOOD ORDERAB LES Final Result Performing Organization Address [facility] Co de Phone Number [facility] [address] [place] [phone] * (ABNORMAL) CBC (10/04/2024 9:16 AM EDT) [facility] White Blood Count 6.6 4.8 - 10.8 X10*3/uL [facility] Red Blood Count 4.11(L) 4.20 - 5.50 X10*6/uL [facility] Hemoglobin 11.3(L) 12.0 - 16.0 g/dl [facility] Hematocrit 35.0(L) 37.0 - 47.0 % [facility] Mean Corpuscular Volume 85.2 80.0 - 98.0 fL [facility] Mean Corpuscular Hemoglobin 27.5 27.0 - 33.0 pg [facility] Mean Corpuscular HGB Conc 32.3 31.0 - 35.0 g/dl [facility] Red Cell Distribution Width 17.2(H) 11.0 - 16.0 % [facility] Platelet Count 250 160 - 400 X10*3/uL [facility] Mean Platelet Volume 10.0 9.4 - 12.3 fL [facility] NRBC Pct Auto 0.0 0.0 - 0.2 /100WBC [facility] NRBC Abs Auto 0.000 0.0 - 0.012 X10*3/uL [facility] Blood Venous blood specimen / Unknown 10/04/2024 9:16 AM EDT 10/04/2024 11:27 AM EDT us Nahomy Kessler MD LAB BLOOD ORDERAB LES Final Result [facility] [address] [place] [phone] * (ABNORMAL) C-reactive Protein (10/04/2024 9:16 AM EDT) [facility] C Reactive Protein 0.68(H) < or = 0.50 mg/dL [facility] Blood Venous blood specimen / Unknown 10/04/2024 9:16 AM EDT 10/04/2024 11:27 AM EDT Nahomy Kessler MD LAB BLOOD ORDERAB LES Final Result Performing Organization Address [facility]/ZIP Co de Phone Number [facility] [address] [place] [phone] * TSH (10/04/2024 9:16 AM EDT) Thyroid Stimulating Hormone 0.65 0.32 - 4.0 uIU/mL [facility] Comment:TSH 3rd Generation ( [facility]) Blood Venous blood specimen / Unknown 10/04/2024 9:16 AM EDT 10/04/2024 11:27 AM EDT us Nahomy Kessler MD LAB BLOOD ORDERAB LES Final Result Performing Organization Address [facility] Co de Phone Number [facility] [address] [place] [phone] * T4, Free (10/04/2024 9:16 AM EDT) Pathologist [facility] Free T4 (Free Thyroxine) 1.11 0.71 - 1.85 ng/dL [facility] Blood Venous blood specimen / Unknown 10/04/2024 9:16 AM EDT 10/04/2024 11:27 AM EDT us Nahomy Kessler MD LAB BLOOD ORDERAB LES Final Result Performing Organization Address [facility] Co de Phone Number [facility] [address] [place] [phone] * B Type Natriuretic Peptide (BNP) (10/04/2024 9:16 AM EDT) Pathologist [facility] B Type Natriuretic Peptide 24 <100 pg/mL [facility] Blood Venous blood specimen / Unknown 10/04/2024 9:16 AM EDT 10/04/2024 11:23 AM EDT Nahomy Kessler MD LAB BLOOD ORDERAB LES Final Result Performing Organization Address [facility] Co de Phone Number [facility] [address] [place] [phone] * (ABNORMAL) Hemoglobin A1c (10/04/2024 9:16 AM EDT) Hemoglobin A1c 7.1(H) <6.0 % [facility] Comment:Hemoglobin A1C Refer ence Range Adults: 4.8 - 6.0 % Non diabetic: < 6.0 % Goal: < 7.0 %Additional Action Suggested: > 8.0 %Note: Hemoglobin A1c results are invalid for patients with abnormal amounts of HbF. Blood transfusions may impact the HbA1c concentration in the patient sample. Estimated Average Glucose 157 mg/dL [facility] Comment:eAG = Estimated ave rage glucose which is %A1C expressed asaverage glucose, using the formula of the L8L-CyfuodwGygcpyz Glucose study (ADAG), Diabetes Care, Vol.31,#8,2007 Blood Venous blood specimen / Unknown 10/04/2024 9:16 AM EDT 10/04/2024 11:27 AM EDT us Nahomy Kessler MD LAB BLOOD ORDERAB LES Final Result Performing Organization Address City/[facility]/ZIP Co de Phone Number [facility] [address] [place] [phone] * Ferritin (10/04/2024 9:16 AM EDT) Ferritin 11 10 - 250 ng/mL [facility] Blood Venous blood specimen / Unknown 10/04/2024 9:16 AM EDT 10/04/2024 11:27 AM EDT Nahomy Kessler MD LAB BLOOD ORDERAB LES Final Result [facility] [address] [place] [phone] * (ABNORMAL) Lipid Panel, Standard (10/04/2024 9:16 AM EDT) Triglycerides 210(H) <150 mg/dL [facility] Comment:Desirable Triglyceri de: less than 150 mg/dLBorderline High Triglyceride 150-199 mg/dLHigh Triglyceride: 200-499 mg/dLVery High Triglyceride: greater than or equal to 5OO mg/dL Cholesterol 231(H) <200 mg/dL [facility] Comment:Desirable Cholestero l: less than 200 mg/dLBorderline High Cholesterol: 200-239 mg/dLHigh Cholesterol: greater than 239 mg/dL LDL Cholesterol Calculated 147(H) <100 mg/dL [facility] Comment:Desirable LDL: less than 100 mg/dLNear Optimal/Above Optimal LDL: 110- 129 mg/dLBorderline High LDL: 130-159 mg/dLHigh LDL: 160-189 mg/dLVery High LDL: greater than or equal to 190 mg/dL HDL Cholesterol 42 >40 mg/dL [facility] Comment:Desirable HDL: great er than 40 mg/dL Note: This HDL assay may give artificially low results in patients with liver disease. Blood Venous blood specimen / Unknown 10/04/2024 9:16 AM EDT 10/04/2024 11:27 AM EDT us Nhaomy Kessler MD LAB BLOOD ORDERAB LES Final Result [facility] [address] [place] [phone] * (ABNORMAL) Comprehensive Metabolic Panel (10/04/2024 9:16 AM EDT) Sodium 144 135 - 145 mmol/L [facility] Potassium 4.1 3.3 - 5.1 mmol/L [facility] Chloride 108 96 - 108 mmol/L [facility] Carbon Dioxide 27 22 - 29 mmol/L [facility] Anion Gap 13 12 - 20 [facility] Urea Nitrogen (BUN) 9 9 - 16 mg/dL [facility] Creatinine, Serum 0.67 0.5 - 1.4 mg/dL [facility] Estimated Glomerular Filt Rate >60 [facility] Comment:Chronic Kidney Disea se: Estimated GFR < 60 mL/min/1.96c2Bbcjsj Kidney Disease: Estimated GFR < 15 mL/min/1.73m2 Glucose 171(H) 60 - 115 mg/dL [facility] Calcium 9.7 8.4 - 10.2 mg/dL [facility] Bilirubin, Total 0.5 0.0 - 1.0 mg/dL [facility] Aspartate Amino Transferase 25 5 - 31 U/L [facility] Alanine Aminotransferase 17 0 - 31 U/L [facility] Total Protein 7.3 6.5 - 8.0 g/dL [facility] Albumin Level 4.1 3.5 - 5.0 g/dL [facility] Alkaline Phosphatase 106 39 - 117 U/L [facility] Blood Venous blood specimen / Unknown 10/04/2024 9:16 AM EDT 10/04/2024 11:27 AM EDT us Nahomy Kessler MD LAB BLOOD ORDERAB LES Final Result Performing Organization Address City/State/[facility] Co de Phone Number [facility] [address] [place] [address] [phone] * XR Chest 2 Views (10/01/2024 9:16 AM EDT) Anatomical Region Laterality Modality Chest Radiographic Sylvia ging 10/01/2024 9:16 AM EDT Narrative 10/01/2024 10:39 AM EDT [address] [address] XRay Report Signed Patient: Arlette Dias MR#: [id number] : 1945 Acct:[id number] Age/Sex: 79 / F ADM Date: 10/01/24 Loc: HO.CX Attending Dr: Nahomy Kessler MD Ordering Physician: Nahomy Davies MD Date of Service: 10/01/24 Procedure(s): XR chest 2V Accession Number(s): [id number] cc: Nahomy Davies MD EXAMINATION: XR CHEST CLINICAL INFORMATION: ongoing worsening SOB COMPARISON: 07/25/2024 TECHNIQUE: 2 views of the chest were obtained. FINDINGS: Cardiac size is enlarged. Hilar structures are unremarkable. Minimal basilar groundglass density is present bilaterally. There is no evidence of a pleural effusion. XR/XR chest 2V IMPRESSION: Probable bibasilar atelectasis, pneumonia not ruled out. Electronically signed by: Kel Delgadillo MD 10/01/2024 10:37 AM EDT RP Dictated By: Kel Delgadillo MD Signed By: <Electronically signed by Kel Delgadillo MD in OV> 10/01/24 1037 DD/ 0916 TD/TT: 10/01/24 0920 Intervention Nurse: Procedure Note Donotuseinterpreter, Image - 10/01/[address] [address] XRay Report Signed Patient: Gifty DiasR#: [id number] : 1945cct:[id number] Age/Sex: 79 / FADM Date: 10/01/24 Loc: HO.CX Attending Dr: Nahomy Kessler MD Ordering Physician: Nahomy Davies MD Date of Service: 10/01/24 Procedure(s): XR chest 2V Accession Number(s): [id number] cc: Nahomy Davies MD EXAMINATION: XR CHEST CLINICAL INFORMATION: ongoing worsening SOB COMPARISON: 07/25/2024 TECHNIQUE: 2 views of the chest were obtained. FINDINGS: Cardiac size is enlarged. Hilar structures are unremarkable. Minimal basilar groundglass density is present bilaterally. There is no evidence of a pleural effusion. XR/XR chest 2V IMPRESSION: Probable bibasilar atelectasis, pneumonia not ruled out. Electronically signed by: Kel Delgadillo MD 10/01/2024 10:37 AM EDT RP Dictated By: Kel Delgadillo MD Signed By: <Electronically signed by Kel Delgadillo MD in OV> 10/01/24 1037 DD/ 0916 TD/TT: 10/01/24 0920 Intervention Nurse: us Nahomy Kessler MD IMG XR PROCEDURES Final Result * XR Shoulder 2+ Views Right (10/01/2024 9:11 AM EDT) Anatomical Region Laterality Modality Upper Extremities, Shoulder Right Radi ographic Imaging 10/01/2024 9:11 AM EDT Narrative 10/01/2024 10:21 [place] [address] XRay Report Signed Patient: Arlette Dias MR#: [id number] : 1945 Acct:[id number] Age/Sex: 79 / F ADM Date: 10/01/24 Loc: HO.HHCX Attending Dr: Nahomy Kessler MD Ordering Physician: Nahomy Davies MD Date of Service: 10/01/24 Procedure(s): XR shoulder RT min 2V Accession Number(s): [id number] cc: Nahomy Davies MD EXAMINATION: XR SHOULDER 2 OR MORE VIEWS RIGHT HISTORY: chronic bilateral shoulder pain COMPARISON: There are no prior studies available for comparison. FINDINGS: Four views of the right shoulder are submitted. Osseous mineralization is normal. There is no fracture or dislocation. The glenohumeral joint is maintained. There is moderate osteoarthritis of the AC joint with joint space narrowing and osteophyte formation. The soft tissues are unremarkable. XR/XR shoulder RT min 2V IMPRESSION: Moderate osteoarthritis of the AC joint. Electronically signed by: Grzegorz Borden MD 10/01/2024 10:19 AM EDT RP Dictated By: Grzegorz Borden MD Signed By: <Electronically signed by Grzegorz Borden MD in OV> 10/01/24 1019 DD/ 0 TD/TT: 10/01/24919 Intervention Nurse: Procedure Note Donotuseinterpreter, Image - 10/01/[address] [address] XRay Report Signed Patient: Gifty DiasR#: [id number] : 1945cct:[id number] Age/Sex: 79 / FADM Date: 10/01/24 Loc: HO.HHCX Attending Dr: Nahomy Kessler MD Ordering Physician: Nahomy Davies MD Date of Service: 10/01/24 Procedure(s): XR shoulder RT min 2V Accession Number(s): [id number] cc: Nahomy Davies MD EXAMINATION: XR SHOULDER 2 OR MORE VIEWS RIGHT HISTORY: chronic bilateral shoulder pain COMPARISON: There are no prior studies available for comparison. FINDINGS: Four views of the right shoulder are submitted. Osseous mineralization is normal. There is no fracture or dislocation. The glenohumeral joint is maintained. There is moderate osteoarthritis of the AC joint with joint space narrowing and osteophyte formation. The soft tissues are unremarkable. XR/XR shoulder RT min 2V IMPRESSION: Moderate osteoarthritis of the AC joint. Electronically signed by: Grzegorz Borden MD 10/01/2024 10:19 AM EDT RP Dictated By: Grzegorz Borden MD Signed By: <Electronically signed by Grzegorz Borden MD in OV> 10/01/24 1019 DD/ 0911 TD/TT: 10/01/24919 Intervention Nurse: Nahomy Kessler MD IMG XR PROCEDURES Final Result * XR Shoulder 2+ Views Left (10/01/2024 9:04 AM EDT) Anatomical Region Laterality Modality Upper Extremities, Shoulder Left Radi ographic Imaging 10/01/2024 9:04 AM EDT Narrative 10/01/2024 10:20 AM EDT [address] [address] XRay Report Signed Patient: Arlette Dias MR#: [id number] : 1945 Acct:[id number] Age/Sex: 79 / F ADM Date: 10/01/24 Loc: HO.HHCX Attending Dr: Nahomy Kessler MD Ordering Physician: Nahomy Davies MD Date of Service: 10/01/24 Procedure(s): XR shoulder LT min 2V Accession Number(s): [id number] cc: Nahomy Davies MD EXAMINATION: XR SHOULDER 2 OR MORE VIEWS LEFT HISTORY: chronic bilateral shoulder pain COMPARISON: Comparison is made with the prior examination dated 04/26/2020. FINDINGS: Five views of the left shoulder are submitted. Osseous mineralization is normal. There is no fracture or dislocation. There is slight inferior subluxation of the humeral head. There is moderate osteoarthritis of the AC joint with joint space narrowing and osteophyte formation. The soft tissues are unremarkable. XR/XR shoulder LT min 2V IMPRESSION: Slight inferior subluxation of the humeral head. Moderate osteoarthritis of the AC joint. Electronically signed by: Grzegorz Borden MD 10/01/2024 10:17 AM EDT Dictated By: Grzegorz Borden MD Signed By: <Electronically signed by Grzegorz Borden MD in OV> 10/01/24 1017 DD/ 0904 TD/TT: 10/01/24 0920 Intervention Nurse: Procedure Note Donotuseinterpreter, Image - 10/01/[address] [address] XRay Report Signed Patient: Gifty DiasR#: [id number] : 1945cct:[id number] Age/Sex: 79 / FADM Date: 10/01/24 Loc: HO.HHCX Attending Dr: Nahomy Kessler MD Ordering Physician: Nahomy Davies MD Date of Service: 10/01/24 Procedure(s): XR shoulder LT min 2V Accession Number(s): [id number] cc: Nahomy Davies MD EXAMINATION: XR SHOULDER 2 OR MORE VIEWS LEFT HISTORY: chronic bilateral shoulder pain COMPARISON: Comparison is made with the prior examination dated 04/26/2020. FINDINGS: Five views of the left shoulder are submitted. Osseous mineralization is normal. There is no fracture or dislocation. There is slight inferior subluxation of the humeral head. There is moderate osteoarthritis of the AC joint with joint space narrowing and osteophyte formation. The soft tissues are unremarkable. XR/XR shoulder LT min 2V IMPRESSION: Slight inferior subluxation of the humeral head. Moderate osteoarthritis of the AC joint. Electronically signed by: Grzegorz Borden MD 10/01/2024 10:17 AM EDT Dictated By: Grzegorz Borden MD Signed By: <Electronically signed by Grzegorz Borden MD in OV> 10/01/24 1017 DD/ 0904 TD/TT: 10/01/24 0920 Intervention Nurse: Nahomy Kessler MD IMG XR PROCEDURES Final Result * XR Skull 1-3 Views (09/19/2024 9:31 AM EDT) Anatomical Region Laterality Modality Head, Neck Radiographic Sylvia ging 09/19/2024 9:31 AM EDT Narrative 09/19/2024 10:54 AM EDT [address] [address] XRay Report Signed Patient: Arlette Dias MR#: [id number] : 1945 Acct:[id number] Age/Sex: 79 / F ADM Date: 09/19/24 Loc: HO.CX Attending Dr: Nahomy Kessler MD Ordering Physician: Nahomy Davies MD Date of Service: 09/19/24 Procedure(s): XR skull <4V Accession Number(s): [id number] cc: Nahomy Davies MD EXAMINATION: XR SKULL CLINICAL INFORMATION: Pain, headache, growth sensation COMPARISON: CT from July 25, 2024 TECHNIQUE: 5 views of the skull were obtained. FINDINGS: No bony destructive changes are identified. There are no lucent or sclerotic lesions. There is no periosteal new bone formation. XR/XR skull <4V IMPRESSION: Unremarkable examination. Electronically signed by: Kel Delgadillo MD 09/19/2024 10:51 AM EDT RP Dictated By: Kel Delgadillo MD Signed By: <Electronically signed by Kel Delgadillo MD in OV> 09/19/24 1051 DD/ 0 TD/TT: 09/19/[address] Intervention Nurse: Procedure Note Donotuseinterpreter, Image - 09/19/2024 [place] [address] XRay Report Signed Patient: Clarisa Dias#: [id number] : 1945cct:[id number] Age/Sex: 79 / FADM Date: 09/19/24 Loc: HO.HHCX Attending Dr: Nahomy Kessler MD Ordering Physician: Nahomy Davies MD Date of Service: 09/19/24 Procedure(s): XR skull <4V Accession Number(s): [id number] cc: Nahomy Davies MD EXAMINATION: XR SKULL CLINICAL INFORMATION: Pain, headache, growth sensation COMPARISON: CT from July 25, 2024 TECHNIQUE: 5 views of the skull were obtained. FINDINGS: No bony destructive changes are identified. There are no lucent or sclerotic lesions. There is no periosteal new bone formation. XR/XR skull <4V IMPRESSION: Unremarkable examination. Electronically signed by: Kel Delgadillo MD 09/19/2024 10:51 AM EDT RP Dictated By: Kel Delgadillo MD Signed By: <Electronically signed by Kel Delgadillo MD in OV> 09/19/24 1051 DD/ 0931 TD/TT: 09/19/24 0940 Intervention Nurse: Nahomy Kessler MD IMG XR PROCEDURES Final Result * BI Mammogram Screening Tomosynthesis Bilateral (08/16/2024 11:21 AM EDT) Anatomical Region Laterality Modality Breast Bilateral Mammography 08/16/2024 11:2 1 AM EDT Narrative 08/24/2024 3:17 PM EDT [facility] [place] [address] Mammography Report Signed Patient: Arlette Dias MR#: [id number] : 1945 Acct:[id number] Age/Sex: 79 / F ADM Date: 08/16/24 Loc: HO.MAMMO Attending Dr: Nahomy Kessler MD Ordering Physician: Nahomy Davies MD Re sults: 1Negative Date of Service: 08/16/24 Follow Up: 1 Year From Orig inal Mammogram Procedure(s): MM tomosynthesis screening BI Accession Number(s): [id number] cc: Nahomy Davies MD EXAMINATION: MM SCREENING DIGITAL BREAST TOMOSYNTHESIS, BILATERAL CLINICAL INFORMATION: Screening. Asymptomatic. COMPARISON: Mammography: Comparison is made with available priors TECHNIQUE: Digital breast mammography with tomosynthesis is performed in both the craniocaudal and mediolateral oblique views along with computer-aided detection (CAD). FINDINGS: There are scattered areas of fibroglandular density (ACR BI-RADS breast composition Category b). There are no significant masses, abnormal calcifications, or other abnormalities. MM/MM tomosynthesis screening BI IMPRESSION: No mammographic evidence of malignancy. ASSESSMENT: BI-RADS BI-RADS 1 - Negative RECOMMENDATION: Routine annual mammography screening. 1 year F/U This examination should not preclude the clinical evaluation of a suspicious palpable abnormality. This patient's information was entered into a reminder system with a target due date for their next mammogram. Electronically signed by: Sheryl Marte DO 08/24/2024 03:13 PM EDT RP Dictated By: Sheryl Marte DO Signed By: <Electronically signed by Sheryl Marte DO in OV> 08/24/24 1513 DD/ 1121 TD/TT: 08/16/24 1130 Intervention Nurse: Procedure Note Donotuseinterpreter, Image - 08/27/2024 [place] [facility] [address] [place] [address] Mammography Report Signed Patient: Annmarie DiasaMR#: [id number] : 1945cct:[id number] Age/Sex: 79 / FADM Date: 08/16/24 Loc: HowieMAMMO Attending Dr: Nahomy Kessler MD Ordering Physician: Nahomy Davies sults: 1Negative Date of Service: 08/16/24Follow Up: 1 Year From Orig inal Mammogram Procedure(s): MM tomosynthesis screening BI Accession Number(s): [id number] cc: Nahomy Davies MD EXAMINATION: MM SCREENING DIGITAL BREAST TOMOSYNTHESIS, BILATERAL CLINICAL INFORMATION: Screening. Asymptomatic. COMPARISON: Mammography: Comparison is made with available priors TECHNIQUE: Digital breast mammography with tomosynthesis is performed in both the craniocaudal and mediolateral oblique views along with computer-aided detection (CAD). FINDINGS: There are scattered areas of fibroglandular density (ACR BI-RADS breast composition Category b). There are no significant masses, abnormal calcifications, or other abnormalities. MM/MM tomosynthesis screening BI IMPRESSION: No mammographic evidence of malignancy. ASSESSMENT: BI-RADS BI-RADS 1 - Negative RECOMMENDATION: Routine annual mammography screening. 1 year F/U This examination should not preclude the clinical evaluation of a suspicious palpable abnormality. This patient's information was entered into a reminder system with a target due date for their next mammogram. Electronically signed by: Sheryl Marte DO 08/24/2024 03:13 PM EDT RP Dictated By: Sheryl Marte DO Signed By: <Electronically signed by Sheryl Marte DO in OV> 08/24/24 1513 DD/ 1121 TD/TT: 08/16/24 1130 Intervention Nurse: us Nahomy Kessler MD IMG BI PROCEDURES Edited Result - Final * Hepatitis C Antibody with Reflex to HCV, RNA, Quantitative, Real-Time PCR (03/22/2023 8:23 AM EST) Hepatitis C Antibody Nonreactive Nonreactive [facility] Comment:Antibodies to HCV no t detected; does not exclude early acuteHCV infection. Blood Venous blood specimen / Unknown 03/22/2023 8:23 AM EST 03/22/2023 11:12 AM EST us Nahomy Kessler MD LAB BLOOD ORDERAB LES Final Result [facility] [address] [place] [phone] from Last 3 Months or Most Recently Relevant to Health Maintenance Insurance [facility] [employer] (O D-SNP) RUY BARROS [id number] Care Teams Steaming Cabinet Tender Relationship Specialty Start Date End Date Nahomy Davies MD [address] [place] [phone] PCP - General Internal Medicine [facility]
--- OUTSIDE RECORDS SUMMARY | 2024-12-11 12:01 | XMS_ITS | Encounter Summary ---
Author Organization [employer] Address [address] [facility] [address]t [place] [address] Care Team Providers Care Broadcast Chief Engineer Name Role Phone Nahomy Davies MD Primary Care Pro vider Reason for Visit * Reason Comments Med Refill Encounter Details Date Type Department Care Team ([facility] st Contact Info) Description 04/20/2024 Refill [facility] MED & PEDS [address] [place], [place] [phone] Suyapa Doyle MD [address] [place] [address] Iron deficiency anemia, unspecified iron deficiency anemia [...] 01/18/2025 9:15 AM EDT Office Visit [facility] MEDICINE [address] [place] [phone] Karrie Carlisle MD [address] [place] [phone] documented as of this encounter Visit Diagnoses Diagnosis Iron deficiency anemia, unspecified iron deficiency anemia type documented in this encounter Additional Health Concerns Assessment Noted Time PHQ-9 Depression Total Score: 0 04/23/19 23 9:18 AM EST documented as of this encounter Care Teams Broadcast Chief Engineer Relationship Specialty Start Date End Date Nahomy Davies MD [address] [place] [phone] PCP - General Internal Medicine [facility] documented as of this encounter
--- OUTSIDE RECORDS SUMMARY | 2024-12-11 12:01 | XMS_ITS | Encounter Summary ---
Author Organization [employer] Address [address] [facility] [address] [place] [address] Care Team Providers Care Rolled Oats Mill Operator Name Role Phone Nahomy Davies MD Primary Care Pro vider Reason for Visit * Reason Comments Med Refill Encounter Details Date Type Department Care Team ([facility] st Contact Info) Description 03/21/2024 Refill [facility] MED & PEDS [address] [place], [place] [phone] Nahomy Davies MD [address] [place], [place] [phone] Type 2 diabetes mellitus without complication, without long-term current use of insulin (CMS/HCC); Type 2 diabetes mellitus without complication, unspecified whether watermaster insulin use (CMS/HCC); Iron deficiency anemia, unspecified [...] Description 01/18/2025 9:15 AM EDT Office Visit [facility] MEDICINE [address] [place] [phone] Karrie Carlisle MD [address] [place] [phone] documented as of this encounter Visit Diagnoses Diagnosis Type 2 diabetes mellitus without complication, unspecified whether watermaster insulin use ([facility]) Iron deficiency anemia, unspecified iron deficiency anemia type Acquired hypothyroidism Unspecified hypothyroidism Sleep disturbance Unspecified sleep disturbance Osteopenia determined by x-ray documented in this encounter Additional Health Concerns Assessment Noted Time PHQ-9 Depression Total Score: 0 04/23/19 23 9:18 AM EST documented as of this encounter Care Teams Rolled Oats Mill Operator Relationship Specialty Start Date End Date Nahomy Davies MD [address] [place] [phone] PCP - General Internal Medicine [facility] documented as of this encounter
--- OUTSIDE RECORDS SUMMARY | 2024-12-11 12:01 | XMS_ITS | Encounter Summary ---
Author Organization [employer] Address [address] [facility] [address] [place] [address] Care Team Providers Care Technical Professional Name Role Phone Nahomy Davies MD Primary Care Pro vider Reason for Visit * Reason Comments Med Refill Encounter Details Date Type Department Care Team ([facility] st Contact Info) Description 05/16/2024 Refill [facility] CHC MED & PEDS [address] [place], [place] [phone] Nahomy Davies MD [address] [place], [place] [phone] Social History Tobacco Use Types Packs/Day Years [...] Description 01/18/2025 9:15 AM EDT Office Visit [facility] MEDICINE [address] [place] [phone] Karrie Carlisle MD [address] [place] [phone] documented as of this encounter Visit Diagnoses Not on filedocumented in this encounter Additional Health Concerns Assessment Noted Time PHQ-9 Depression Total Score: 0 04/23/19 23 9:18 AM EST documented as of this encounter Care Teams Technical Professional Relationship Specialty Start Date End Date Nahomy Davies MD [address] [place] [phone] PCP - General Internal Medicine [facility] documented as of this encounter
--- OUTSIDE RECORDS SUMMARY | 2024-12-11 12:01 | XMS_ITS | Encounter Summary ---
Author Organization [employer] Address 75 [facility] 7[address] [place] [address] Care Team Providers Care Production Graphic Designer Name Role Phone Nancy Larose CLERK OF COURT Primary Care Provider Nahomy Wilkins MD Primary Care Pro vider Reason for Visit * Reason Comments Med Refill Encounter Details Date Type Department Care Team (Late st Contact Info) Description 09/23/2022 Refill [facility] [address] [place] [address] [phone] Nancy Larose FNP Shortness of breath Social History Tobacco Use [...] Description 01/18/2025 9:15 AM EDT Office Visit [facility] [address] [place] [address] [phone] Karrie Carlisle MD [address] [place] [address] [phone] documented as of this encounter Visit Diagnoses Diagnosis Shortness of breath documented in this encounter Additional Health Concerns Assessment Noted Time PHQ-9 Depression Total Score: 0 04/23/19 9:18 AM EST documented as of this encounter Care Teams Production Graphic Designer Relationship Specialty Start Date End Date Nancy Larose FNP PCP - General Family Medicine 12/08/21 01/12/23 Nahomy Davies MD [address] [place] [phone] PCP - General Internal Medicine 01/13/23 Nika Darius 11/17/24 documented as of this encounter
--- OUTSIDE RECORDS SUMMARY | 2024-12-11 12:01 | XMS_ITS | Encounter Summary ---
Author Organization [employer] Address 75 [facility] 7t [place] [address] Care Team Providers Care Sales Representative Door To Door Name Role Phone Nahomy Davies MD Primary Care Pro vider Reason for Visit * Reason Comments Med Refill Encounter Details Date Type Department Care Team ([facility] st Contact Info) Description 01/18/2024 Refill [facility] [address] [place], [place] [phone] Suyapa Doyle MD [address] [facility] [place], [place] [phone] Type 2 diabetes mellitus with other specified complication, with long-term current use of insulin ([facility]) Social History Tobacco Use Types [...] Description 01/18/2025 9:15 AM EDT Office Visit [facility] [address] [place] [address] Karrie Carlisle MD [address] [place] [address] [phone] documented as of this encounter Visit Diagnoses Diagnosis Type 2 diabetes mellitus with other specified complication, with long-term current use of insulin ([facility]) documented in this encounter Additional Health Concerns Assessment Noted Time PHQ-9 Depression Total Score: 0 04/23/19 23 9:18 AM EST documented as of this encounter Care Teams Sales Representative Door To Door Relationship Specialty Start Date End Date Nahomy Davies MD [address] [place] [address] [phone] PCP - General Internal Medicine 01/13/23 [facility] 11/17/24 documented as of this encounter
--- OUTSIDE RECORDS SUMMARY | 2024-12-11 12:01 | XMS_ITS | Encounter Summary ---
Author Organization [employer] Address 75 [facility] 7[address] [place] [address] Care Team Providers Care Aircraft Engine Dismantler Name Role Phone Nahomy Davies MD Primary Care Pro vider Reason for Visit * Reason Comments Med Refill Encounter Details Date Type Department Care Team ([facility] st Contact Info) Description 01/31/2024 Refill [facility] 230 [place], [place] [phone] Nahomy Davies MD 230 [place] [address] Iron deficiency anemia, unspecified iron deficiency anemia [...] Upcoming Encounters Date Type Department Care Team ([facility] st Contact Info) Description 01/18/2025 9:15 AM EDT Office Visit [facility] [address] [place] [address] Karrie Carlisle MD [address] [place] [address] [phone] documented as of this encounter Visit Diagnoses Diagnosis Iron deficiency anemia, unspecified iron deficiency anemia type Mixed hyperlipidemia documented in this encounter Additional Health Concerns Assessment Noted Time PHQ-9 Depression Total Score: 0 04/23/19 23 9:18 AM EST documented as of this encounter Care Teams Aircraft Engine Dismantler Relationship Specialty Start Date End Date Nahomy Davies MD [address] [place] [address] 38[address] PCP - General Internal Medicine 01/13[facility]23 [facility] documented as of this encounter
--- OUTSIDE RECORDS SUMMARY | 2024-12-11 12:01 | XMS_ITS | Encounter Summary ---
Author Organization [employer] Address 75 [facility] 7t [place] [address] Care Team Providers Care Migratory Farm Hand Name Role Phone Nahomy Davies MD Primary Care Pro vider Reason for Visit * Reason Comments Med Refill Encounter Details Date Type Department Care Team ([facility] st Contact Info) Description 02/23/2024 Refill [facility] 230 [place], [place] [phone] Irene Mei MD 230 [place], [place] [phone] Type 2 diabetes mellitus with other specified complication, with long-term current use of insulin ([facility]); Shortness of breath Social History Tobacco Use [...] Description 01/18/2025 9:15 AM EDT Office Visit [facility] [address] [place] [phone] Karrie Carlisle MD [address] [place] [address] [phone] documented as of this encounter Visit Diagnoses Diagnosis Type 2 diabetes mellitus with other specified complication, with long-term current use of insulin ([facility]) Shortness of breath documented in this encounter Additional Health Concerns Assessment Noted Time PHQ-9 Depression Total Score: 0 04/23/19 23 9:18 AM EST documented as of this encounter Care Teams Migratory Farm Hand Relationship Specialty Start Date End Date Nahomy Davies MD [address] [place] [address] [phone] PCP - General Internal Medicine 01/13/23 [facility] 11/17/24 documented as of this encounter
--- OUTSIDE RECORDS SUMMARY | 2024-12-11 12:01 | XMS_ITS | Encounter Summary ---
Author Organization [employer] Address 75 [facility] 7t [place] [address] Care Team Providers Care Funeral Director/Embalmer/Owner Name Role Phone Nahomy Davies MD Primary Care Pro vider Reason for Visit * Reason Comments Med Refill Encounter Details Date Type Department Care Team ([facility] st Contact Info) Description 02/23/2024 Refill [facility] 230 [place] [address] Nahomy Davies MD 230 [place], [place] [phone] Essential hypertension; Type 2 diabetes mellitus without complication, without long-term current use of insulin ([facility]) Social History [...] AM EDT Office Visit [facility] [address] [place] [address] Karrie Carlisle MD [address] [place] [phone] documented as of this encounter Visit Diagnoses Diagnosis Essential hypertension Unspecified essential hypertension Type 2 diabetes mellitus without complication, without long-term current use of insulin ([facility]) documented in this encounter Additional Health Concerns Assessment Noted Time PHQ-9 Depression Total Score: 0 04/23/19 23 9:18 AM EST documented as of this encounter Care Teams Funeral Director/Embalmer/Owner Relationship Specialty Start Date End Date Nahomy Davies MD [address] [place] [address] [phone] PCP - General Internal Medicine 01/13/23 [facility] 11/17/24 documented as of this encounter
--- OUTSIDE RECORDS SUMMARY | 2024-12-11 12:01 | XMS_ITS | Encounter Summary ---
Author Organization [employer] Address 75 [facility] 7[address] [place] [address] Care Team Providers Care Biomedical Scientist Name Role Phone Nancy Larose DIRECTOR SALES AND MARKETING Primary Care Provider Nahomy Wilkins MD Primary Care Pro vider Encounter Details Date Type Department Care Team (Late st Contact Info) Description 10/19/2022 Orders Only [facility] [address] [place] [address] Kary Lux LPN Social History Tobacco [...] Upcoming Encounters Date Type Department Care Team ([facility] Contact Info) Description 01/18/2025 9:15 AM EDT Office Visit [facility] [address] [place] [address] [phone] Karrie Carlisle MD [address] [place] [address] [phone] documented as of this encounter Visit Diagnoses Not on filedocumented in this encounter Additional Health Concerns Assessment Noted Time PHQ-9 Depression Total Score: 0 04/23/19 9:18 AM EST documented as of this encounter Care Teams Biomedical Scientist Relationship Specialty Start Date End Date Nancy Larose FNP PCP - General Family Medicine 12/08/21 01/12/23 Nahomy Davies MD [address] [place] [address] [phone] PCP - General Internal Medicine 01/13/23 Nika Darius 11/17/24 documented as of this encounter
--- OUTSIDE RECORDS SUMMARY | 2024-12-11 12:01 | XMS_ITS | Encounter Summary ---
Author Organization [employer] Address 75 [facility] 7t [place] [address] Care Team Providers Care Roller Leveler Operator Name Role Phone Nahomy Davies MD Primary Care Pro vider Reason for Visit * Reason Comments Med Refill Encounter Details Date Type Department Care Team ([facility] st Contact Info) Description 03/05/2024 Refill [facility] 230 [place], [place] [phone] Irene Mei MD 230 [place], [place] [phone] Type 2 diabetes mellitus with other specified complication, with long-term current use of insulin ([facility]); Shortness of breath; Chronic neck [...] Description 01/18/2025 9:15 AM EDT Office Visit [facility] [address] [place] [address] Karrie Carlisle MD [address] [place] [phone] documented as of this encounter Visit Diagnoses Diagnosis Type 2 diabetes mellitus with other specified complication, with long-term current use of insulin ([facility]) Shortness of breath Chronic neck pain Cervicalgia documented in this encounter Additional Health Concerns Assessment Noted Time PHQ-9 Depression Total Score: 0 04/23/19 23 9:18 AM EST documented as of this encounter Care Teams Roller Leveler Operator Relationship Specialty Start Date End Date Nahomy Davies MD [address] [place] [phone] PCP - General Internal Medicine 01/13/23 [facility] 11/17/24 documented as of this encounter
--- OUTSIDE RECORDS SUMMARY | 2024-12-11 12:01 | XMS_ITS | Encounter Summary ---
Author Organization [employer] Address 75 [facility] 7[address] [place] [address] Care Team Providers Care Transportation Maintenance Worker Name Role Phone Nancy Larose [facility] Primary Care Provider Nahoym Wilkins MD Primary Care Pro vider Reason for Visit * Reason Comments Med Refill Encounter Details Date Type Department Care Team (Late st Contact Info) Description 09/15/2022 Refill [facility] 230 [place] [address] Anamaria Herzog FNP 505 [place] [address] Type 2 diabetes mellitus with other specified complication, with long-term current use of insulin ([facility]) Social History Tobacco [...] 9:15 AM EDT Office Visit [facility] [address] [place] [address] [phone] Karrie Carlisle MD 230 [place] [address] documented as of this encounter Visit Diagnoses Diagnosis Type 2 diabetes mellitus with other specified complication, with long-term current use of insulin ([facility]) documented in this encounter Additional Health Concerns Assessment Noted Time PHQ-9 Depression Total Score: 0 04/23/19 9:18 AM EST documented as of this encounter Care Teams Transportation Maintenance Worker Relationship Specialty Start Date End Date Nancy Larose FNP PCP - General Family Medicine 12/08/21 01/12/23 Nahomy Davies MD 230 [place], [place] [phone] PCP - General Internal Medicine 01/13/23 [facility] 11/17/24 documented as of this encounter
--- OUTSIDE RECORDS SUMMARY | 2024-12-11 12:01 | XMS_ITS | Encounter Summary ---
Author Organization [employer] Address 75 [facility] 7t [place] [address] Care Team Providers Care Search Planner Name Role Phone Nahomy Davies MD Primary Care Pro vider Reason for Visit * Reason Comments Med Refill Encounter Details Date Type Department Care Team ([facility] st Contact Info) Description 07/10/2024 Refill [facility] [address] [place], [place] [phone] Suyapa Doyle MD 230 [place], [place] [phone] Acquired hypothyroidism; Osteopenia determined by x-ray; Sleep [...] Description 01/18/2025 9:15 AM EDT Office Visit [facility] [address] [place] [address] 737[address] Karrie Carlisle MD [address] [place] [address] documented as of this encounter Visit Diagnoses Diagnosis Acquired hypothyroidism Unspecified hypothyroidism Osteopenia determined by x-ray Sleep disturbance Unspecified sleep disturbance Iron deficiency anemia, unspecified iron deficiency anemia type documented in this encounter Additional Health Concerns Assessment Noted Time PHQ-9 Depression Total Score: 0 04/23/19 23 9:18 AM EST documented as of this encounter Care Teams Search Planner Relationship Specialty Start Date End Date Nahomy Davies MD [address] [place] [address] [phone] PCP - General Internal Medicine 01/13/23 [place] [facility] 11/17/24 documented as of this encounter
--- OUTSIDE RECORDS SUMMARY | 2024-12-11 12:01 | XMS_ITS | Encounter Summary ---
Author Organization [employer] Address 75 [facility] 7 [place] [address] Care Team Providers Care Piece Dyeing Machine Tender Name Role Phone Nahomy Davies MD Primary Care Pro vider Reason for Visit * Reason Comments Med Refill Encounter Details Date Type Department Care Team ([facility] st Contact Info) Description 11/27/2024 Refill [facility] 230 [place] [address] Nahomy Davies MD 230 [place] [address] Shortness of breath; Type 2 diabetes mellitus without complication, without long-term current use of insulin ([facility]) Social History Tobacco Use [...] your housing situation today? I have chiara sing 08/28/[address] you li [...] Description 01/18/2025 9:15 AM EDT Office Visit [facility] [address] [place] [address] Karrie Carlisle MD [address] [place] [phone] documented as of this encounter Visit Diagnoses Diagnosis Shortness of breath Type 2 diabetes mellitus without complication, without long-term current use of insulin ([facility]) documented in this encounter Additional Health Concerns Assessment Noted Time PHQ-9 Depression Total Score: 0 09/27/19 2:19 PM EDT documented as of this encounter Care Teams Piece Dyeing Machine Tender Relationship Specialty Start Date End Date Nahomy Davies MD [address] [place] [address] [phone] PCP - General Internal Medicine 01/13/23 [facility] documented as of this encounter
--- OUTSIDE RECORDS SUMMARY | 2024-12-11 12:01 | XMS_ITS | Encounter Summary ---
Author Organization [employer] Address 75 [facility] 7[place] [address] Care Team Providers Care Digital Forensic Analyst Name Role Phone Nahomy Davies MD Primary Care Pro vider Reason for Visit * Reason Comments Med Refill Encounter Details Date Type Department Care Team ([facility] st Contact Info) Description 02/02/2024 Refill [facility] 230 [place], [place] [phone] Nahomy Davies MD 230 [place] [address] Iron deficiency anemia, unspecified iron deficiency anemia [...] Upcoming Encounters Date Type Department Care Team ([facility] st Contact Info) Description 01/18/2025 9:15 AM EDT Office Visit [facility] [address] [place] [phone] Karrie Carlisle MD [address] [place] [address] 94[address] documented as of this encounter Visit Diagnoses Diagnosis Iron deficiency anemia, unspecified iron deficiency anemia type Mixed hyperlipidemia documented in this encounter Additional Health Concerns Assessment Noted Time PHQ-9 Depression Total Score: 0 04/23/19 23 9:18 AM EST documented as of this encounter Care Teams Digital Forensic Analyst Relationship Specialty Start Date End Date Nahomy Davies MD [address] [place] [phone] PCP - General Internal Medicine 01/13/23 [facility] 11/[facility] documented as of this encounter
--- OUTSIDE RECORDS SUMMARY | 2024-12-11 12:02 | XMS_ITS | Encounter Summary ---
Author Organization [employer] Address 75 [facility] 7[address] [place] [address] Care Team Providers Care Journeyman Welder Name Role Phone Nancy Larose FARM MACHINE TENDER Primary Care Provider Nahomy Wilkins MD Primary Care Pro vider Reason for Visit * Reason Comments Med Refill Encounter Details Date Type Department Care Team ([facility] st Contact Info) Description 11/10/2022 Refill [facility] 230 [place], [place] [phone] Nancy Larose FNP Type 2 diabetes mellitus without complication, without long-term current use of insulin ([facility]); Sleep disturbance; Constipation, unspecified constipation [...] Office Visit [facility] 230 [place], [place] [phone] Karrie Carlisle MD [address] [place] [address] [phone] documented as of this encounter Visit Diagnoses Diagnosis Type 2 diabetes mellitus without complication, without long-term current use of insulin ([facility]) Sleep disturbance Unspecified sleep disturbance Constipation, unspecified constipation type Essential hypertension Unspecified essential hypertension Gastroesophageal reflux disease without esophagitis Esophageal reflux Cobalamin deficiency Other B-complex deficiencies Osteopenia determined by x-ray documented in this encounter Additional Health Concerns Assessment Noted Time PHQ-9 Depression Total Score: 0 04/23/19 9:18 AM EST documented as of this encounter Care Teams Journeyman Welder Relationship Specialty Start Date End Date Nancy Larose FNP PCP - General Family Medicine 12/08/21 01/12/23 Nahomy Davies MD [address] [place] [address] [phone] PCP - General Internal Medicine 01/13/23 [facility] documented as of this encounter
--- OUTSIDE RECORDS SUMMARY | 2024-12-11 12:02 | XMS_ITS | Encounter Summary ---
Author Organization [employer] Address 75 [facility] 7[place] [address] Care Team Providers Care Library Acquisitions Technician Name Role Phone Nahomy Davies MD Primary Care Pro vider Reason for Visit * Reason Onset Date Comments Medication Question 03/25/2023 Encounter Details Date Type Department Care Team ([facility] Contact Info) Description 03/25/2023 Telephone [facility] 230 [place] [address] Nahomy Davies MD 230 [place] [address] Medication Question Social History Tobacco Use Types Packs/Day Years Used Date Smoking Tobacco: Never Passive Smoke Exposure: Never Smokeless Tobacco: Never Alcohol Use Standard Drinks/Week Comments Never 0 (1 standard drink = 0.6 oz pur e alcohol) Depression Answer Date Recorded Patient Health Questionnaire-9 Score 0 04/23/2022 Housing Stability Answer Date Recorded What is your housing situation today? I have chiararaji bello 01/24/[address] you [...] for [employer]Style lancets with clarifications on directions. [phone] ext [phone] documented in this encounter Plan of Treatment Upcoming Encounters Date Type Department Care Team (Late st Contact Info) Description 01/18/2025 9:15 AM EDT Office Visit [facility] [address] [place] [address] [phone] Karrie Carlisle MD [address] [place] [address] 0[address] documented as of this encounter Visit Diagnoses Not on filedocumented in this encounter Additional Health Concerns Assessment Noted Time PHQ-9 Depression Total Score: 0 04/23/19 9:18 AM EST documented as of this encounter Care Teams Library Acquisitions Technician Relationship Specialty Start Date End Date Nahomy Davies MD 230 [place] [address] PCP - General Internal Medicine 01/13/23 [facility]/17[facility]24 documented as of this encounter
--- OUTSIDE RECORDS SUMMARY | 2024-12-11 12:02 | XMS_ITS | Continuity of Care Document ---
Author Name [employer] Medical Address [address] [place] [phone] Organization Unknown Address [address] [place] [address] Medications No known medications Problems No known problems
--- OUTSIDE RECORDS SUMMARY | 2024-12-11 12:02 | XMS_ITS | Encounter Summary ---
Author Organization [employer] Address 75 [facility] 7t [place] [address] Care Team Providers Care Case Management Rn Name Role Phone Nahomy Davies MD Primary Care Pro vider Encounter Details Date Type Department Care Team ([facility] st Contact Info) Description 10/19/2024 Orders Only [facility] 230 [place] [address] Nahomy Davies MD 230 [place] [address] Social History Tobacco Use Types Packs/Day Years [...] Upcoming Encounters Date Type Department Care Team ([facility] st Contact Info) Description 01/18/2025 9:15 AM EDT Office Visit [facility] [address] [place] [address] [phone] Karrie Carlisle MD [address] [place] [address] [phone] documented as of this encounter Visit Diagnoses Not on filedocumented in this encounter Additional Health Concerns Assessment Noted Time PHQ-9 Depression Total Score: 0 09/27/19 2:19 PM EDT documented as of this encounter Care Teams Case Management Rn Relationship Specialty Start Date End Date Nahomy Davise MD [address] [place] [phone] PCP - General Internal Medicine 01/13/23 [facility] 11/17/24 documented as of this encounter
--- OUTSIDE RECORDS SUMMARY | 2024-12-11 12:02 | XMS_ITS | Encounter Summary ---
Author Organization [employer] Address 75 [facility] 7t [place] [address] Care Team Providers Care Burr Filer Name Role Phone Nahomy Davies MD Primary Care Pro vider Reason for Visit * Reason Comments Med Refill Encounter Details Date Type Department Care Team ([facility] st Contact Info) Description 06/05/2023 Refill [facility] 230 [place] [address] Nahomy Davies MD 230 [place] [address] Social History Tobacco Use Types Packs/Day Years [...] Description 01/18/2025 9:15 AM EDT Office Visit [facility] [address] [place] [address] Karrie Carlisle MD [address] [place] [phone] documented as of this encounter Visit Diagnoses Not on filedocumented in this encounter Additional Health Concerns Assessment Noted Time PHQ-9 Depression Total Score: 0 04/23/19 23 9:18 AM EST documented as of this encounter Care Teams Burr Filer Relationship Specialty Start Date End Date Nahomy Davies MD [address] [place] [address] [phone] PCP - General Internal Medicine 01/13[facility]23 [facility] documented as of this encounter
--- OUTSIDE RECORDS SUMMARY | 2024-12-11 12:02 | XMS_ITS | Encounter Summary ---
Author Organization [employer] Address [address] [facility] 7t [place] [address] Care Team Providers Care Service Line Layer Name Role Phone Nahomy Davies MD Primary Care Pro vider Reason for Visit * Reason Comments Med Refill Encounter Details Date Type Department Care Team ([facility] st Contact Info) Description 06/13/2023 Refill [facility] MEDICINE [address] [place] [address] Nahomy Davies MD [address] [place] [address] Social History Tobacco Use Types Packs/Day Years [...] 01/18/2025 9:15 AM EDT Office Visit [facility] MEDICINE [address] [place] [address] 18261 Karrie Carlisle MD [address] [place] [address] 604[address] documented as of this encounter Visit Diagnoses Not on filedocumented in this encounter Additional Health Concerns Assessment Noted Time PHQ-9 Depression Total Score: 0 04/23/19 23 9:18 AM EST documented as of this encounter Care Teams Service Line Layer Relationship Specialty Start Date End Date Nahomy Davies MD [address] [place] [address] [phone] PCP - General Internal Medicine [facility]23 [facility] documented as of this encounter
--- OUTSIDE RECORDS SUMMARY | 2024-12-11 12:02 | XMS_ITS | Encounter Summary ---
Author Organization [employer] Address 75 [facility] 7t [place] [address] Care Team Providers Care Treating Engineer Helper Name Role Phone Nahomy Davies MD Primary Care Pro vider Reason for Visit * Reason Comments Med Refill Encounter Details Date Type Department Care Team ([facility] st Contact Info) Description 07/23/2023 Refill [facility] MED & PEDS [address] [place], [place] [phone] Suyapa Doyle MD 230 [place] [address] Shortness of breath Social History Tobacco Use [...] Description 01/18/2025 9:15 AM EDT Office Visit [facility] MEDICINE [address] [place] [address] Karrie Carlisle MD [address] [place] [address] 335[address] documented as of this encounter Visit Diagnoses Diagnosis Shortness of breath documented in this encounter Additional Health Concerns Assessment Noted Time PHQ-9 Depression Total Score: 0 04/23/19 23 9:18 AM EST documented as of this encounter Care Teams Treating Engineer Helper Relationship Specialty Start Date End Date Nahomy Davies MD [address] [place] [address] [phone] PCP - General Internal Medicine 01/13/23 [facility] 11/17/24 documented as of this encounter
--- OUTSIDE RECORDS SUMMARY | 2024-12-11 12:02 | XMS_ITS | Encounter Summary ---
Author Organization [employer] Address 75 [facility] 7t [place] [address] Care Team Providers Care Animal Rescuer Name Role Phone Nahomy Davies MD Primary Care Pro vider Reason for Visit * Reason Comments Med Refill Encounter Details Date Type Department Care Team ([facility] st Contact Info) Description 06/23/2023 Refill [facility] MEDICINE 230 [place] [address] Nahomy Davies MD 230 [place] [address] Social History Tobacco Use Types Packs/Day Years [...] Description 01/18/2025 9:15 AM EDT Office Visit [facility] MEDICINE [address] [place] [address] Karrie Carlisle MD [address] [place] [phone] documented as of this encounter Visit Diagnoses Not on filedocumented in this encounter Additional Health Concerns Assessment Noted Time PHQ-9 Depression Total Score: 0 04/23/19 23 9:18 AM EST documented as of this encounter Care Teams Animal Rescuer Relationship Specialty Start Date End Date Nahomy Davies MD [address] [place] [address] [phone] PCP - General Internal Medicine 01/13/23 [facility] documented as of this encounter
--- OUTSIDE RECORDS SUMMARY | 2024-12-11 12:02 | XMS_ITS | Encounter Summary ---
Author Organization [facility] Address [address] [facility] [address] [place] [address] Encounters * CPT with Medical instED at [employer] on 2024-11-18 { reasonForRequest : Patient has lower back pain , patientReports :&q uot; , denies :[ Falls with head strike and LOC , Falls from a standing position, no LOC, patient is amnestic to the event , Falls with isolated injury and deformity noted to limb , Falls with inability to move post fall , Cool extremitiesafter fall or injury ], chiefComplaints : Back Pain , pmh : Diabetes Mellitus Type 2, Chronic Back Pain , allergies : Penicillins ,&quo t;otherAllergies :null, painAssessment : , visitOutcome : & quot;, additionalComments : 79 y.o female complains of Back Pain x 1 week\n\nCaregiver reports the pt is feeling unwell with lower back - History of Sciatica - Pain is radiating from lower back to right groin\n\nDenies fever - Denies nausea and vomiting\n\nReports taking Advil and Tylenol with some relief \n\nWellness check requested \n\nI provided information on the ENDOGENX response time and advised the patient and/or caregiver to monitor reported signs and symptoms. I discussed the warning signs of when to seek emergency care. } This 79-year-old female with a history including but not limited to DM type II and chronic back pain requested a visit today to address one week of pain in her lower right back that radiates to her front. Patient states she used to receive cortisone shots, last was approximately three years ago. Patient has been using lidocaine 5% patches, Tylenol and ibuprofen. Patient denies any new injuries, pa resthesia, neurological changes, loss of bowel or bladder function, hematuria. Patient states she contacted her PCPs office and is waiting to hear back. Allergy to PCN. Patient presents awake and alert, in no acute distress and speaking full sentences. Her vital signsare reasonably stable and she is afebrile. Nonfocal neurological exam. Lungs are clear throughout auscultation. Abdomen is soft, nontender, nondistended. No erythema, edema, point tenderness or warmth on her back. Normal CSM in all extremities. We discussed the diagnostic uncertainty of home visits and the risk associated with this. In this case, the patient and I felt this to be an acceptable and reasonable amount of risk given the benefitof avoiding an ED visit. I provided education on appropriate Tylenol dosing and recommend she is a heating pad. I instructed them to continue to follow up with the PCP daily until she receives an appointment and present her to the emergency department for any new or worsening severe symptoms such as one sided weakness, neurological changes, loss of bowel or bladder function, hematuria, severe pain. Patient interfamily were given the opportunity to ask questions and are agreeable to this plan. IV_(FLUIDS_AND/OR_MEDICATION), MEDICATION_IM, ORAL_MEDICATION, EKG Written by [employer] on 2024-11-18
--- OUTSIDE RECORDS SUMMARY | 2024-12-11 12:02 | XMS_ITS | Encounter Summary ---
Author Organization [employer] Address [address] [facility] 7t [place] [address] Care Team Providers Care Management Recruiter Name Role Phone Nahomy Davies MD Primary Care Pro vider Reason for Visit * Reason Comments Med Refill Encounter Details Date Type Department Care Team ([facility] st Contact Info) Description 06/29/2023 Refill [facility] MEDICINE 230 [place] [address] Nahomy Davies MD 230 [place] [address] Social History Tobacco Use Types Packs/Day Years [...] EDT Office Visit [facility] MEDICINE [address] [place] [address] Karrie Carlisle MD [address] [place] [address] 8[address] documented as of this encounter Visit Diagnoses Not on filedocumented in this encounter Additional Health Concerns Assessment Noted Time PHQ-9 Depression Total Score: 0 04/23/19 23 9:18 AM EST documented as of this encounter Care Teams Management Recruiter Relationship Specialty Start Date End Date Nahomy Davies MD [address] [place] [address] [phone] PCP - General Internal Medicine [facility]23 [facility] documented as of this encounter
--- OUTSIDE RECORDS SUMMARY | 2024-12-11 12:02 | XMS_ITS | Encounter Summary ---
Author Organization [employer] Address 75 [facility] 7t [place] [address] Care Team Providers Care Operation Supervisor Name Role Phone Nahomy Davies MD Primary Care Pro vider Reason for Visit * Reason Comments Med Refill Encounter Details Date Type Department Care Team ([facility] st Contact Info) Description 07/04/2023 Refill [facility] MEDICINE 230 [place] [address] Nahomy Davies MD 230 [place] [address] Social History Tobacco Use Types Packs/Day Years [...] 9:15 AM EDT Office Visit [facility] MEDICINE [address] [place] [address] 17[address] Karrie Carlisle MD [address] [place] [address] documented as of this encounter Visit Diagnoses Not on filedocumented in this encounter Additional Health Concerns Assessment Noted Time PHQ-9 Depression Total Score: 0 04/23/19 23 9:18 AM EST documented as of this encounter Care Teams Operation Supervisor Relationship Specialty Start Date End Date Nahomy Davies MD [address] [place] [address] [phone] PCP - General Internal Medicine 01/13/23 [facility] documented as of this encounter
--- OUTSIDE RECORDS SUMMARY | 2024-12-11 12:02 | XMS_ITS | Encounter Summary ---
Author Organization [employer] Address [address] [facility] 7t [place] [address] Care Team Providers Care Shearer Printed Circuit Boards Name Role Phone Nahomy Davies MD Primary Care Pro vider Reason for Visit * Reason Comments Med Refill Encounter Details Date Type Department Care Team ([facility] st Contact Info) Description 06/06/2023 Refill [facility] MEDICINE 230 [place] [address] Nahomy Davies MD 230 [place] [address] Social History Tobacco Use Types Packs/Day Years [...] 9:15 AM EDT Office Visit [facility] MEDICINE [address] [place] [address] 269[address] Karrie Carlisle MD [address] [place] [address] documented as of this encounter Visit Diagnoses Not on filedocumented in this encounter Additional Health Concerns Assessment Noted Time PHQ-9 Depression Total Score: 0 04/23/19 23 9:18 AM EST documented as of this encounter Care Teams [employer] Relationship Specialty Start Date End Date Nahomy Davies MD [address] [place] [address] [phone] PCP - General Internal Medicine 01/13/23 [facility] documented as of this encounter
--- OUTSIDE RECORDS SUMMARY | 2024-12-11 12:02 | XMS_ITS | Encounter Summary ---
Author Organization [email or web address] Address [address] [facility] 7t [place] [address] Care Team Providers Care Sampler Pickup Name Role Phone Nahoym Davies MD Primary Care Pro vider Reason for Visit * Reason Comments Med Refill Encounter Details Date Type Department Care Team ([facility] st Contact Info) Description 07/23/2023 Refill [facility] MEDICINE 230 [place] [address] Nahomy Davies MD 230 [place] [address] Iron deficiency anemia, unspecified iron deficiency anemia type; Type 2 diabetes mellitus without complication, without long-term current use of insulin ([facility]) Social History Tobacco Use Types [...] Description 01/18/2025 9:15 AM EDT Office Visit [facility] MEDICINE [address] [place] [address] 6[address] Karrie Carlisle MD [address] [place] [address] 57762 documented as of this encounter Visit Diagnoses Diagnosis Iron deficiency anemia, unspecified iron deficiency anemia type Type 2 diabetes mellitus without complication, without long-term current use of insulin ([facility]) documented in this encounter Additional Health Concerns Assessment Noted Time PHQ-9 Depression Total Score: 0 04/23/19 23 9:18 AM EST documented as of this encounter Care Teams Sampler Pickup Relationship Specialty Start Date End Date Nahomy Davies MD [address] [place] [phone] PCP - General Internal Medicine 01/13/23 [facility] 11/17/24 documented as of this encounter
--- OUTSIDE RECORDS SUMMARY | 2024-12-11 12:02 | XMS_ITS | Encounter Summary ---
Author Organization [employer] Address [address] [facility] 7t [place] [address] Care Team Providers Care Curtain Drier Name Role Phone Nahomy Davies MD Primary Care Pro vider Reason for Visit * Reason Comments Med Refill Encounter Details Date Type Department Care Team ([facility] st Contact Info) Description 10/22/2024 Refill [facility] MEDICINE 230 [place] [address] Nahomy Davies MD 230 [place] [address] Cobalamin deficiency Social History Tobacco Use Types [...] EDT Office Visit [facility] MEDICINE [address] [place] [address] Karrie Carlisle MD [address] [place] [address] 0[address] documented as of this encounter Visit Diagnoses Diagnosis Cobalamin deficiency Other B-complex deficiencies documented in this encounter Additional Health Concerns Assessment Noted Time PHQ-9 Depression Total Score: 0 09/27/19 2:19 PM EDT documented as of this encounter Care Teams Curtain Drier Relationship Specialty Start Date End Date Nahomy Davies MD [address] [place] [address] [phone] PCP - General Internal Medicine 01/13/23 [facility] documented as of this encounter
--- OUTSIDE RECORDS SUMMARY | 2024-12-11 12:02 | XMS_ITS | Encounter Summary ---
Author Organization [employer] Address [address] [facility] 7t [place] [address] Care Team Providers Care Boat Buffer Plastic Name Role Phone Nahomy Davies MD Primary Care Pro vider Reason for Visit * Reason Comments Med Refill Encounter Details Date Type Department Care Team ([facility] st Contact Info) Description 01/31/2023 Refill [facility] MEDICINE 230 [place] [address] Nancy Larose FNP Social History Tobacco Use Types Packs/Day Years [...] Office Visit [facility] MEDICINE [address] [place] [address] Karrie Carlisle MD [address] [place] [address] 56[address] documented as of this encounter Visit Diagnoses Not on filedocumented in this encounter Additional Health Concerns Assessment Noted Time PHQ-9 Depression Total Score: 0 04/23/19 23 9:18 AM EST documented as of this encounter Care Teams Boat Buffer Plastic Relationship Specialty Start Date End Date Nahomy Davies MD [address] [place] [phone] PCP - General Internal Medicine 01/13/23 [facility] 11/17/24 documented as of this encounter
--- OUTSIDE RECORDS SUMMARY | 2024-12-11 12:02 | XMS_ITS | Encounter Summary ---
Author Organization [employer] Address [address] [facility] 7t [place] [address] Care Team Providers Care Accounts Specialist Name Role Phone Nahomy Davies MD Primary Care Pro vider Reason for Visit * Reason Comments Med Refill Encounter Details Date Type Department Care Team ([facility] st Contact Info) Description 06/20/2023 Refill [facility] MEDICINE 230 [place] [address] Nahomy Davies MD 230 [place] [address] Social History Tobacco Use Types Packs/Day Years [...] 9:15 AM EDT Office Visit [facility] MEDICINE [address] [place] [address] 85[address] Karrie Carlisle MD [address] [place] [address] 8[address]57 documented as of this encounter Visit Diagnoses Not on filedocumented in this encounter Additional Health Concerns Assessment Noted Time PHQ-9 Depression Total Score: 0 04/23/19 23 9:18 AM EST documented as of this encounter Care Teams Accounts Specialist Relationship Specialty Start Date End Date Nahomy Davies MD [address] [place] [address] [phone] PCP - General Internal Medicine 01/13[facility]23 [facility] documented as of this encounter
--- OUTSIDE RECORDS SUMMARY | 2024-12-11 12:02 | XMS_ITS | Encounter Summary ---
Author Organization [employer] Address [address] [facility] 7t [place] [address] Care Team Providers Care Staff Physical Therapy Assistant Name Role Phone Nahomy Davies MD Primary Care Pro vider Reason for Visit * Reason Comments Med Refill Encounter Details Date Type Department Care Team ([facility] st Contact Info) Description 10/31/2024 Refill [facility] MEDICINE 230 [place], [place] [phone] Sabrina Gonzalez NP 230 [place] [address] Social History Tobacco Use Types Packs/Day Years [...] Description 01/18/2025 9:15 AM EDT Office Visit [facility] MEDICINE [address] [place] [address] Karrie Carlisle MD [address] [place] [address] 6[address] documented as of this encounter Visit Diagnoses Not on filedocumented in this encounter Additional Health Concerns Assessment Noted Time PHQ-9 Depression Total Score: 0 09/27/19 2:19 PM EDT documented as of this encounter Care Teams Staff Physical Therapy Assistant Relationship Specialty Start Date End Date Nahomy Davies MD [address] [place] [phone] PCP - General Internal Medicine 01/13/23 [facility]/17[facility]24 documented as of this encounter
--- OUTSIDE RECORDS SUMMARY | 2024-12-11 12:02 | XMS_ITS | Encounter Summary ---
Author Organization [employer] Address 75 [facility] 7t [place] [address] Care Team Providers Care Shift Superintendent Name Role Phone Nahomy Davies MD Primary Care Pro vider Reason for Visit * Reason Comments Med Refill Encounter Details Date Type Department Care Team ([facility] st Contact Info) Description 10/31/2024 Refill [facility] CHC MED & PEDS [address] [place], [place] [phone] Nahomy Davies MD 230 [place], [place] [phone] Type 2 diabetes mellitus without complication, without long-term current use of insulin ([facility]) Social History Tobacco Use Types [...] housing situation today? I have chiararaji bello 08/28/[address] you [...] Description 01/18/2025 9:15 AM EDT Office Visit [facility] MEDICINE [address] [place] [address] Karrie Carlisle MD 230 [place] [address] documented as of this encounter Visit Diagnoses Diagnosis Type 2 diabetes mellitus without complication, without long-term current use of insulin ([facility]) documented in this encounter Additional Health Concerns Assessment Noted Time PHQ-9 Depression Total Score: 0 09/27/19 25 2:19 PM EDT documented as of this encounter Care Teams Shift Superintendent Relationship Specialty Start Date End Date Nahomy Davies MD 230 [place] [address] PCP - General Internal Medicine 01/13[facility]23 [facility] documented as of this encounter
--- OUTSIDE RECORDS SUMMARY | 2024-12-11 12:02 | XMS_ITS | Encounter Summary ---
Author Organization [employer] Address [address] [facility] 7t [place] [address] Care Team Providers Care Pump Stitcher Name Role Phone Nahomy Davies MD Primary Care Pro vider Reason for Visit * Reason Comments Med Refill Encounter Details Date Type Department Care Team ([facility] st Contact Info) Description 02/07/2023 Refill [facility] MEDICINE 230 [place] [address] Nancy Larose FNP Social History Tobacco Use [...] Description 01/18/2025 9:15 AM EDT Office Visit [facility] MEDICINE [address] [place] [address] Karrie Carlisle MD [address] [place] [phone] documented as of this encounter Visit Diagnoses Not on filedocumented in this encounter Additional Health Concerns Assessment Noted Time PHQ-9 Depression Total Score: 0 04/23/19 23 9:18 AM EST documented as of this encounter Care Teams Pump Stitcher Relationship Specialty Start Date End Date Nahomy Davies MD [address] [place] [phone] PCP - General Internal Medicine 01/13/23 [facility] 11/17/24 documented as of this encounter
== END 2024-12-11 10:52 | disposition home or self-care (01) ==
LOC: HO.PMC 10:29
PROVIDERS: PCP Student in an Organized Health Care Education/Training Program; Visit Provider Nurse Practitioner Family
DX: M47.816 Spondylosis without myelopathy or radiculopathy, lumbar region (principal); M54.16 Radiculopathy, lumbar region; M53.3 Sacrococcygeal disorders, not elsewhere classified
CPT/HCPCS: 99214; G2211

== ENCOUNTER → 2024-12-11 10:27 | Outpatient (BNVA) | payer OTHER, SELFPAY | PROVIDERS: PCP Student in an Organized Health Care Education/Training Program; Visit Provider Nurse Practitioner Family | DX: M47.816 Spondylosis without myelopathy or radiculopathy, lumbar region (principal); M54.16 Radiculopathy, lumbar region; M53.3 Sacrococcygeal disorders, not elsewhere classified | CPT/HCPCS: 99212 ==

== ENCOUNTER 2024-12-20 12:02 | Outpatient (REF) | payer OTHER, SELFPAY ==
--- NOTE | 2024-12-20 | EEG_ITS ---
ROOM 1 REASON; PARALYSIS HISTORY; MEDICATIONS; TECHIICAL COMMENTS; PHOTIC STIMULATION COMPLETED HYPERVENTILATION;OMITTED BEHAVIORAL STATE; SKULL DEFECT; HANDEDNESS; UNKNOWN Description: This is a 16 channel EEG with an EKG lead. Patient is reported awake during the tracing. Background EEG rhythm is 7-8 hertz 5-50 microvolt posteriorly and lower amplitude fast anteriorly. Photic stimulation does not produce any significant abnormality. Hyperventilation is not performed. Cardiac lead does not reveal any significant abnormality. No sharp wave spikes or paroxysmal tendency noted. Impression: Mild generalized slowing with no epileptic activity. MTDD
--- OUTSIDE RECORDS SUMMARY | 2024-12-20 16:18 | XMS_ITS | Continuity of Care Document ---
Author Name instED, Medical Address [address] [place] [address] Organization Unknown Address [address] [place] [address] Medications No known medications Problems No known problems
== END 2024-12-20 12:03 | disposition home or self-care (01) ==
LOC: HO.NEURO 12:02
PROVIDERS: PCP Student in an Organized Health Care Education/Training Program; Visit Provider Student in an Organized Health Care Education/Training Program
DX: G83.9 Paralytic syndrome, unspecified (principal)
CPT/HCPCS: 95816

== ENCOUNTER → 2024-12-20 12:08 | Outpatient (BNV) | payer OTHER, SELFPAY | PROVIDERS: PCP Student in an Organized Health Care Education/Training Program; Visit Provider Psychiatry & Neurology Neurology | DX: G83.9 Paralytic syndrome, unspecified (principal) | CPT/HCPCS: 95816 ==

== ENCOUNTER 2024-12-27 06:20 | Outpatient (REF) | payer OTHER, SELFPAY ==
--- NOTE | ~2024-12-27 | FL_ITS ---
EXAMINATION: FL GUIDANCE ONLY HISTORY: M53.3 - Sacrococcygeal disorders, not elsewhere classified COMPARISON: None available. TECHNIQUE: Fluoroscopy time: 0.1 minute. Cumulative Dose: 2.23 mGy. DAP: 0.294 mGym2 Images: 2. FINDINGS: Fluoroscopic spot films of the right hemipelvis demonstrate a needle in the region of the sacroiliac joint. FL/FL guidance in treatment room IMPRESSION: Fluoroscopy during procedure. Please see procedure report for additional information. Electronically signed by: Grzegorz Borden MD 12/27/2024 02:58 PM EDT
== END 2024-12-27 06:21 | disposition home or self-care (01) ==
LOC: CF 06:20
PROVIDERS: Visit Provider Internal Medicine
DX: M53.3 Sacrococcygeal disorders, not elsewhere classified (principal)
CPT/HCPCS: 27096; J2003; J2795; J3301

== ENCOUNTER 2024-12-27 11:30 | Outpatient (AMB) | payer OTHER, SELFPAY ==
[2024-12-27 11:33] VITALS: BP 157/69; PULSE 79; RESP 16; O2SAT 93; BMI 35.4
--- NOTE | 2024-12-27 11:33 | MHC.OFFVIS ---
Vital Signs 12/27/24 11:33 12/27/24 12:14 Height 5 ft 3 in Weight 200 lb BMI 35.4 BP 157/69 H 174/81 H Blood Pressure Location Lt radial Lt radial Position Sitting Sitting Respiration 16 16 Pulse 79 68 Pulse Source Pulse Oximeter Pulse Oximeter Pulse Oximetry (%) 93 96 Oxygen Delivery Method Room Air Room Air Intake Visit Reasons: Right theraputic SIJ inj Allergies lisinopril Allergy (Intermediate, Verified 12/11/24 10:37) itching Penicillins Allergy (Intermediate, Verified 12/11/24 10:37) rash/hives black pepper Allergy (Mild, Verified 12/11/24 10:37) Unknown fluticasone (From Flonase) Allergy (Mild, Verified 12/11/24 10:37) Unknown HPI HPI Right theraputic SIJ inj: Details: Patient presents for scheduled procedure. Denies any recent cough, cold, infection, fever or other significant changes in medical history since last office visit. PFSH Medical History Tubular adenoma of colon Chronic restrictive lung disease Insomnia On beta anish at home History of COVID-19 Asthma Chronic constipation Broken arm CAD (coronary artery disease) HTN (hypertension) Hyperlipidemia Diabetes mellitus Dyspnea Dysphagia Non-toxic multinodular goiter Hypothyroidism Surgical History H/O thyroidectomy History of surgery Hx of elbow surgery History of surgery on arm Hx of cholecystectomy History of partial hysterectomy Hx of cataract surgery History of tubal ligation Hx of tonsillectomy History of carpal tunnel release Hx of colonoscopy Family History Father Throat cancer Heart disease CVD (cardiovascular disease) Mother Stomach cancer Type 2 diabetes mellitus Arthritis of knee Hypertension Social History Household Members: None Household Members Other:: self Housing: Apartment Are you a primary hearing care practitioner to a significant other at home: No Do you presently have visiting nurse or other home services: No Alcohol intake: never Patient Tobacco Use Status: Never used Tobacco Second Hand Smoke Exposure: No Advance Directives Date on File: 11/15/24 service: No Current occupational status: retired Current occupation: right handed Physical Exam Vital Signs: Last Vital Signs Pulse 68 12/27/24 12:14 Resp 16 12/27/24 12:14 BP 174/81 H 12/27/24 12:14 Pulse Ox 96 12/27/24 12:14 Oxygen Delivery Method Room Air 12/27/24 12:14 BMI result Body Mass Index 35.4 Office Procedures AMB Joint Injection/Aspiration Joint Injection/Aspiration Details: Sacroiliac Joint Injection, Right The procedure, its benefits, and its risks were explained and written informed consent was obtained from the patient. Immediately prior to starting the procedure, a time-out safety check was conducted. The patient's identification, procedure name, procedure site, and procedure laterality were confirmed with the patient. ? Patient was placed prone on the fluoroscopy table and the lumbosacral area was prepped using ChloraPrep and draped with sterile draped in standard fashion. The C-arm was rotated in a contralateral oblique fashion until the medial border of the iliac crest no longer foreshadowed the posterior sacroiliac joint line. The skin and subcutaneous tissue was anesthetized using 1 mL of 0.75% plain lidocaine with 1.5-inch 25-gauge needle in the middle region of the joint line.? A 3.5-inch 22-gauge spinal needle with small bend on the tip was slowly advanced towards the joint line, coaxial to the x-ray beam. Once bony content was obtained, the needle was easily slid into the intra-articular space.? Intra-articular needle position was confirmed using lateral fluoroscopy.? A total volume of 2.5mL of solution containing 40 mg trimcinilone and rest 0.5% of ropivacaine was injected intra-articularly. The stylet was reinserted and needle was removed. The patient tolerated the procedure well. Patient denied any lower extremity weakness or numbness. Patient was observed for 30 min and was discharged after fulfilling the standard discharge criteria. Coding 25282 - Sacroiliac Procedure code (CPT) selection complete Assessment & Plan Assessment & Plan (1) Sacroiliac joint pain: Code(s): M53.3 - Sacrococcygeal disorders, not elsewhere classified Category: Medical Plan Patient is status post right therapeutic sacroiliac joint injection. Patient tolerated procedure well and was discharged home in stable condition with discharge instructions. All questions were answered. We will follow-up via telephone or in clinic to assess response to therapy. A follow-up appointment was made during today's visit. Orders: Orders FL guidance in treatment room 12/27/24 M53.3 - Sacrococcygeal disorders, not elsewhere classified Coding Level of Care Code Procedure Only Diagnoses Sacroiliac joint pain M53.3 CPT Codes Coding - Joint 9: 82010 - Sacroiliac ([id number])
[2024-12-27 12:14] VITALS: BP 174/81; PULSE 68; RESP 16; O2SAT 96
--- OUTSIDE RECORDS SUMMARY | 2024-12-27 13:51 | XMS_ITS | Encounter Summary ---
Author Organization [employer] Address 75 [facility] 7t [place] [address] Care Team Providers Care Billing Clerk Name Role Phone Nahomy Davies MD Primary Care Pro vider Reason for Visit * Reason Comments Med Refill Encounter Details Date Type Department Care Team ([facility] st Contact Info) Description 11/11/2023 Refill [facility] [address] [place] [address] Nahomy Davies MD 230 [place] [address] Type 2 diabetes mellitus without complication, without long-term current use of insulin ([facility]) Social History Tobacco Use Types Packs/Day Years [...] Description 01/18/2025 9:15 AM EDT Office Visit [facility] [address] [place] [phone] Karrie Carlisle MD [address] [place] [phone] documented as of this encounter Visit Diagnoses Diagnosis Type 2 diabetes mellitus without complication, without long-term current use of insulin ([facility]) documented in this encounter Additional Health Concerns Assessment Noted Time PHQ-9 Depression Total Score: 0 04/23/19 23 9:18 AM EST documented as of this encounter Care Teams Billing Clerk Relationship Specialty Start Date End Date Nahomy Davies MD [address] [place] [phone] PCP - General Internal Medicine 01/13/23 [facility] 11/17/24 documented as of this encounter
--- OUTSIDE RECORDS SUMMARY | 2024-12-27 13:51 | XMS_ITS | Encounter Summary ---
Author Organization [employer] Address 75 [facility] 7t [place] [address] Care Team Providers Care Pediatric Speech Language Pathologist Name Role Phone Nahomy Davies MD Primary Care Pro vider Reason for Visit * Reason Comments Med Refill Encounter Details Date Type Department Care Team ([facility] st Contact Info) Description 11/08/2023 Refill [facility] 230 [place] [address] Nahomy Davies MD [address] [place] [address] Type 2 diabetes mellitus without complication, without long-term current use of insulin ([facility]) Social History Tobacco Use Types [...] 9:15 AM EDT Office Visit [facility] [address] [place] [phone] Karrie Carlisle MD [address] [place] [phone] documented as of this encounter Visit Diagnoses Diagnosis Type 2 diabetes mellitus without complication, without long-term current use of insulin ([facility]) documented in this encounter Additional Health Concerns Assessment Noted Time PHQ-9 Depression Total Score: 0 04/23/19 23 9:18 AM EST documented as of this encounter Care Teams Pediatric Speech Language Pathologist Relationship Specialty Start Date End Date Nahomy Davies MD [address] [place] [phone] PCP - General Internal Medicine 01/13/23 [place] [facility] 11/17/24 documented as of this encounter
--- OUTSIDE RECORDS SUMMARY | 2024-12-27 13:51 | XMS_ITS | Encounter Summary ---
Author Organization [employer] Address 75 [facility] 7t [place] [address] Care Team Providers Care Extruder Operator Helper Name Role Phone Nahomy Davies MD Primary Care Pro vider Reason for Visit * Reason Comments Med Refill Encounter Details Date Type Department Care Team ([facility] st Contact Info) Description 11/07/2023 Refill [facility] 230 [place] [address] Nahomy Davies MD 230 [place] [address] Type 2 diabetes mellitus without complication, without long-term current use of insulin ([facility]) Social History Tobacco [...] Office Visit [facility] [address] [place] [address] Karrie Carlisle MD [address] [place] [phone] documented as of this encounter Visit Diagnoses Diagnosis Type 2 diabetes mellitus without complication, without long-term current use of insulin ([facility]) documented in this encounter Additional Health Concerns Assessment Noted Time PHQ-9 Depression Total Score: 0 04/23/19 23 9:18 AM EST documented as of this encounter Care Teams Extruder Operator Helper Relationship Specialty Start Date End Date Nahomy Davies MD [address] [place] [phone] PCP - General Internal Medicine 01/13/23 [facility] 11/17/24 documented as of this encounter
--- OUTSIDE RECORDS SUMMARY | 2024-12-27 13:51 | XMS_ITS | Encounter Summary ---
Author Organization [employer] Address 75 [facility] 7t [place] [address] Care Team Providers Care Mail Room Clerk Name Role Phone Nahomy Davies MD Primary Care Pro vider Reason for Visit * Reason Comments Med Refill Encounter Details Date Type Department Care Team ([facility] st Contact Info) Description 11/08/2023 Refill [facility] 230 [place] [address] Nahomy Davies MD 230 [place] [address] Type 2 diabetes mellitus without complication, without long-term current use of insulin ([facility]) Social History Tobacco Use [...] Office Visit [facility] [address] [place] [address] Karrie Carlisle MD [address] [place] [address] documented as of this encounter Visit Diagnoses Diagnosis Type 2 diabetes mellitus without complication, without long-term current use of insulin ([facility]) documented in this encounter Additional Health Concerns Assessment Noted Time PHQ-9 Depression Total Score: 0 04/23/19 23 9:18 AM EST documented as of this encounter Care Teams Mail Room Clerk Relationship Specialty Start Date End Date Nahomy Davies MD [address] [place] [phone] PCP - General Internal Medicine 01/13/23 [place] [facility] 11/17/24 documented as of this encounter
--- OUTSIDE RECORDS SUMMARY | 2024-12-27 13:51 | XMS_ITS | Encounter Summary ---
Author Organization [employer] Address 75 [facility] 7t [place] [address] Care Team Providers Care Training Representative Name Role Phone Nahomy Davies MD Primary Care Pro vider Reason for Visit * Reason Comments Med Refill Encounter Details Date Type Department Care Team ([facility] st Contact Info) Description 10/18/2023 Refill [facility] 230 [place] [address] Nahomy Davies MD 230 [place] [address] Social History Tobacco Use Types Packs/Day Years [...] Description 01/18/2025 9:15 AM EDT Office Visit [facility] [address] [place] [phone] Karrie Carlisle MD [address] [place] [phone] documented as of this encounter Visit Diagnoses Not on filedocumented in this encounter Additional Health Concerns Assessment Noted Time PHQ-9 Depression Total Score: 0 04/23/19 23 9:18 AM EST documented as of this encounter Care Teams Training Representative Relationship Specialty Start Date End Date Nahomy Davies MD [address] [place] [address] [phone] PCP - General Internal Medicine 01/13/23 [facility] documented as of this encounter
--- OUTSIDE RECORDS SUMMARY | 2024-12-27 13:51 | XMS_ITS | Encounter Summary ---
Author Organization [employer] Address [address] [facility] 7[address] [place] [address] Care Team Providers Care Academic Assistant Name Role Phone Nahomy Davies MD Primary Care Pro vider Reason for Visit * Reason Comments Med Refill Encounter Details Date Type Department Care Team ([facility] st Contact Info) Description 10/12/2023 Refill [facility] [address] [place], [place] [phone] Nahomy Davies MD 230 [place] [address] Iron deficiency anemia, unspecified iron deficiency anemia [...] 9:15 AM EDT Office Visit [facility] MEDICINE [address] [place] [address] Karrie Carlisle MD [address] [place] [address] [phone] documented as of this encounter Visit Diagnoses Diagnosis Iron deficiency anemia, unspecified iron deficiency anemia type documented in this encounter Additional Health Concerns Assessment Noted Time PHQ-9 Depression Total Score: 0 04/23/19 23 9:18 AM EST documented as of this encounter Care Teams Academic Assistant Relationship Specialty Start Date End Date Nahomy Davies MD [address] [place] [address] [phone] PCP - General Internal Medicine 01/13/23 [place] [facility] 11/17/24 documented as of this encounter
--- OUTSIDE RECORDS SUMMARY | 2024-12-27 13:51 | XMS_ITS | Encounter Summary ---
Author Organization [employer] Address [address] [facility] 7[address] [place] [address] Care Team Providers Care Atmospheric Scientist Name Role Phone Nahomy Davies MD Primary Care Pro vider Reason for Visit * Reason Comments Med Refill Encounter Details Date Type Department Care Team ([facility] st Contact Info) Description 10/03/2024 Refill [facility] [address] [place], [place] [phone] Nahomy Davies MD 230 [place] [address] Cobalamin deficiency Social History Tobacco Use Types [...] Description 01/18/2025 9:15 AM EDT Office Visit [facility] [address] [place] [phone] Karrie Carlisle MD [address] [place] [phone] documented as of this encounter Visit Diagnoses Diagnosis Cobalamin deficiency Other B-complex deficiencies documented in this encounter Additional Health Concerns Assessment Noted Time PHQ-9 Depression Total Score: 0 09/27/19 2:19 PM EDT documented as of this encounter Care Teams Atmospheric Scientist Relationship Specialty Start Date End Date Nahomy Davies MD [address] [place] [phone] PCP - General Internal Medicine 01/13[facility]23 [facility] documented as of this encounter
--- OUTSIDE RECORDS SUMMARY | 2024-12-27 13:51 | XMS_ITS | Encounter Summary ---
Author Organization [employer] Address 75 [facility] 7t [place] [address] Care Team Providers Care Director Of Catering Name Role Phone Nahomy Davies MD Primary Care Pro vider Reason for Visit * Reason Comments Med Refill Encounter Details Date Type Department Care Team ([facility] st Contact Info) Description 08/07/2024 Refill [facility] 230 [place], [place] [phone] Nahomy Davies MD 230 [place], [place] [phone] Type 2 diabetes mellitus without complication, without long-term current use of insulin ([facility]); Essential hypertension Social History Tobacco Use Types [...] 9:15 AM EDT Office Visit [facility] [address] [place] [address] Karrie Carlisle MD [address] [place] [phone] documented as of this encounter Visit Diagnoses Diagnosis Type 2 diabetes mellitus without complication, without long-term current use of insulin ([facility]) Essential hypertension Unspecified essential hypertension documented in this encounter Additional Health Concerns Assessment Noted Time PHQ-9 Depression Total Score: 0 04/23/19 23 9:18 AM EST documented as of this encounter Care Teams Director Of Catering Relationship Specialty Start Date End Date Nahomy Davies MD [address] [place] [phone] PCP - General Internal Medicine 01/13/23 [facility] 11/17/24 documented as of this encounter
--- OUTSIDE RECORDS SUMMARY | 2024-12-27 13:52 | XMS_ITS | Encounter Summary ---
Author Organization [employer] Address [address] [facility] [address] [place] [address] Care Team Providers Care Entry Level Finance Name Role Phone Nahomy Davies MD Primary Care Pro vider Reason for Visit * Reason Comments Med Refill Encounter Details Date Type Department Care Team ([facility] st Contact Info) Description 02/02/2024 Refill [facility] 230 [place], [place] [phone] Nahomy Davies MD 230 [place] [address] Iron deficiency anemia, unspecified iron deficiency anemia [...] Upcoming Encounters Date Type Department Care Team ([facility] st Contact Info) Description 01/18/2025 9:15 AM EDT Office Visit [facility] [address] [place] [phone] Karrie Carlisle MD [address] [place] [address] documented as of this encounter Visit Diagnoses Diagnosis Iron deficiency anemia, unspecified iron deficiency anemia type Mixed hyperlipidemia documented in this encounter Additional Health Concerns Assessment Noted Time PHQ-9 Depression Total Score: 0 04/23/19 23 9:18 AM EST documented as of this encounter Care Teams Entry Level Finance Relationship Specialty Start Date End Date Nahomy Davies MD [address] [place] [phone] PCP - General Internal Medicine [facility]23 [facility] documented as of this encounter
--- OUTSIDE RECORDS SUMMARY | 2024-12-27 13:52 | XMS_ITS | Encounter Summary ---
Author Organization [employer] Address 75 [facility] 7[address] [place] [address] Care Team Providers Care Road Hogger Operator Name Role Phone Nancy Larose [employer] Primary Care Provider Nahomy Wilkins MD Primary Care Pro vider Encounter Details Date Type Department Care Team (Late st Contact Info) Description 10/19/2022 Orders Only [facility] MED[facility]INE [address] [place] [address] Kary Lux LPN Social History Tobacco [...] Upcoming Encounters Date Type Department Care Team ([facility] Contact Info) Description 01/18/2025 9:15 AM EDT Office Visit [facility] [address] [place] [address] [phone] Karrie Carlisle MD [address] [place] [phone] documented as of this encounter Visit Diagnoses Not on filedocumented in this encounter Additional Health Concerns Assessment Noted Time PHQ-9 Depression Total Score: 0 04/23/19 9:18 AM EST documented as of this encounter Care Teams Road Hogger Operator Relationship Specialty Start Date End Date Nancy Larose FNP PCP - General Family Medicine 12/08/21 01/12/23 Nahomy Davies MD [address] [place] [phone] PCP - General Internal Medicine 01/13/23 [facility] 11/17/24 documented as of this encounter
--- OUTSIDE RECORDS SUMMARY | 2024-12-27 13:52 | XMS_ITS | Encounter Summary ---
Author Organization [employer] Address 75 [facility] 7t [place] [address] Care Team Providers Care Malter Operator Name Role Phone Nahomy Davies MD Primary Care Pro vider Reason for Visit * Reason Comments Med Refill Encounter Details Date Type Department Care Team ([facility] st Contact Info) Description 12/02/2023 Refill [facility] & P[facility]S [address] [place], [place] [phone] Nahomy Davies MD 230 [place] [address] Social History Tobacco Use Types Packs/Day Years [...] Description 01/18/2025 9:15 AM EDT Office Visit [facility] MEDICINE [address] [place] [address] [phone] Karrie Carlisle MD [address] [place] [phone] documented as of this encounter Visit Diagnoses Not on filedocumented in this encounter Additional Health Concerns Assessment Noted Time PHQ-9 Depression Total Score: 0 04/23/19 23 9:18 AM EST documented as of this encounter Care Teams Malter Operator Relationship Specialty Start Date End Date Nahomy Davies MD [address] [place] [address] [phone] PCP - General Internal Medicine 01/13/23 [facility] 11/17/24 documented as of this encounter
--- OUTSIDE RECORDS SUMMARY | 2024-12-27 13:52 | XMS_ITS | Encounter Summary ---
Author Organization [employer] Address 75 [facility] [address] [place] [address] Care Team Providers Care Creative Strategist Name Role Phone Nancy Larose MANAGER FILTER Primary Care Provider Nahomy Wilkins MD Primary Care Pro vider Reason for Visit * Reason Comments Med Refill Encounter Details Date Type Department Care Team ([facility] st Contact Info) Description 11/10/[address] [facility] MEDICINE 230 [place], [place] [phone] Nancy Larose FNP Type 2 diabetes mellitus without complication, without long-term current use of insulin ([facility]); Sleep disturbance; Constipation, unspecified constipation type; Essential [...] 9:15 AM EDT Office Visit [facility] MEDICINE [address] [place], [place] [phone] Karrie Carlisle MD [address] [place] [address] [phone] documented as of this encounter Visit Diagnoses Diagnosis Type 2 diabetes mellitus without complication, without long-term current use of insulin ([facility]) Sleep disturbance Unspecified sleep disturbance Constipation, unspecified constipation type Essential hypertension Unspecified essential hypertension Gastroesophageal reflux disease without esophagitis Esophageal reflux Cobalamin deficiency Other B-complex deficiencies Osteopenia determined by x-ray documented in this encounter Additional Health Concerns Assessment Noted Time PHQ-9 Depression Total Score: 0 04/23/19 9:18 AM EST documented as of this encounter Care Teams Creative Strategist Relationship Specialty Start Date End Date Nancy Larose FNP PCP - General Family Medicine 12/08/21 01/12/23 Nahomy Davies MD [address] [place] [phone] PCP - General Internal Medicine 01/13[facility]23 [facility] documented as of this encounter
--- OUTSIDE RECORDS SUMMARY | 2024-12-27 13:52 | XMS_ITS | Encounter Summary ---
Author Organization [employer] Address [address] [facility] 7t [place] [address] Care Team Providers Care Operations And Maintenance Specialist Name Role Phone Nahomy Davies MD Primary Care Pro vider Reason for Visit * Reason Comments Med Refill Encounter Details Date Type Department Care Team ([facility] st Contact Info) Description 01/22/2024 Refill [facility] [address] [place] [address] Nahomy Davies MD [address] [place] [address] Social History Tobacco Use Types Packs/Day Years [...] Upcoming Encounters Date Type Department Care Team ([facility] st Contact Info) Description 01/18/2025 9:15 AM EDT Office Visit [facility] [address] [place] [phone] Karrie Carlisle MD [address] [place] [phone] documented as of this encounter Visit Diagnoses Not on filedocumented in this encounter Additional Health Concerns Assessment Noted Time PHQ-9 Depression Total Score: 0 04/23/19 23 9:18 AM EST documented as of this encounter Care Teams Operations And Maintenance Specialist Relationship Specialty Start Date End Date Nahomy Davies MD [address] [place] [phone] PCP - General Internal Medicine [facility] documented as of this encounter
--- OUTSIDE RECORDS SUMMARY | 2024-12-27 13:52 | XMS_ITS | Encounter Summary ---
Author Organization [employer] Address [address] [facility] 7[place] [address] Care Team Providers Care English And Reading Instructor Name Role Phone Nancy Larose [facility] Primary Care Provider Nahomy Wilkins MD Primary Care Pro vider Reason for Visit * Reason Comments Med Refill Encounter Details Date Type Department Care Team (Late st Contact Info) Description 09/15/2022 Refill [facility] 230 [place] [address] Anamaria Herzog FNP [address] [place] [address] Type 2 diabetes mellitus with other specified complication, with long-term current use of insulin ([facility]) Social History [...] Office Visit [facility]INE [address] [place] [address] Karrie Carlisle MD 230 [place] [address] documented as of this encounter Visit Diagnoses Diagnosis Type 2 diabetes mellitus with other specified complication, with long-term current use of insulin ([facility]) documented in this encounter Additional Health Concerns Assessment Noted Time PHQ-9 Depression Total Score: 0 04/23/19 9:18 AM EST documented as of this encounter Care Teams English And Reading Instructor Relationship Specialty Start Date End Date Nancy Larose FNP PCP - General Family Medicine 12/08/21 01/12/23 Nahomy Davies MD 230 [place], [place] [phone] PCP - General Internal Medicine 01/13/23 [place] [facility] 11/17/24 documented as of this encounter
--- OUTSIDE RECORDS SUMMARY | 2024-12-27 13:52 | XMS_ITS | Encounter Summary ---
Author Organization [employer] Address [address] [facility] 7[address] [place] [address] Care Team Providers Care Drying Room Operator Name Role Phone Nahomy Davies MD Primary Care Pro vider Reason for Visit * Reason Comments Med Refill Encounter Details Date Type Department Care Team ([facility] st Contact Info) Description 01/31/2024 Refill [facility] MED[facility]INE 230 [place], [place] [phone] Nahomy Davies MD 230 [place] [address] Iron deficiency anemia, unspecified iron deficiency anemia [...] Upcoming Encounters Date Type Department Care Team ([facility] st Contact Info) Description 01/18/2025 9:15 AM EDT Office Visit [facility] [address] [place] [phone] Karrie Carlisle MD [address] [place] [phone] documented as of this encounter Visit Diagnoses Diagnosis Iron deficiency anemia, unspecified iron deficiency anemia type Mixed hyperlipidemia documented in this encounter Additional Health Concerns Assessment Noted Time PHQ-9 Depression Total Score: 0 04/23/19 23 9:18 AM EST documented as of this encounter Care Teams Drying Room Operator Relationship Specialty Start Date End Date Nahomy Davies MD [address] [place] [id number] PCP - General Internal Medicine 01/13[facility]23 [facility] documented as of this encounter
--- OUTSIDE RECORDS SUMMARY | 2024-12-27 13:52 | XMS_ITS | Encounter Summary ---
Author Organization [employer] Address [address] [facility] 7t [place] [address] Care Team Providers Care Sales Demonstrator Name Role Phone Nahomy Davies MD Primary Care Pro vider Reason for Visit * Reason Comments Med Refill Encounter Details Date Type Department Care Team ([facility] st Contact Info) Description 05/16/2024 Refill [facility] [address] [place], [place] [phone] Nahomy Davies MD 230 [place], [place] [phone] Social History Tobacco Use Types Packs/Day Years [...] Description 01/18/2025 9:15 AM EDT Office Visit [facility] [address] [place] [phone] Karrie Carlisle MD [address] [place] [phone] documented as of this encounter Visit Diagnoses Not on filedocumented in this encounter Additional Health Concerns Assessment Noted Time PHQ-9 Depression Total Score: 0 04/23/19 23 9:18 AM EST documented as of this encounter Care Teams Sales Demonstrator Relationship Specialty Start Date End Date Nahomy Davies MD [address] [place] [phone] PCP - General Internal Medicine 01/13/23 [facility] documented as of this encounter
--- OUTSIDE RECORDS SUMMARY | 2024-12-27 13:52 | XMS_ITS | Encounter Summary ---
Author Organization [employer] Address [address] [facility] 7[address] [place] [address] Care Team Providers Care Print Controller Name Role Phone Nancy Larose [facility] Primary Care Provider Nahomy Wilkins MD Primary Care Pro vider Reason for Visit * Reason Comments Med Refill Encounter Details Date Type Department Care Team (Late st Contact Info) Description 08/30/2022 Refill [facility] 230 [place] [address] Anamaria Herzog FNP 505 [place] [address] Type 2 diabetes mellitus with other specified complication, with long-term current use of insulin ([facility]) Social History Tobacco [...] 01/18/2025 9:15 AM EDT Office Visit [facility] [address] [place] [address] Karrie Carlisle MD [address] [place] [address] documented as of this encounter Visit Diagnoses Diagnosis Type 2 diabetes mellitus with other specified complication, with long-term current use of insulin ([facility]) documented in this encounter Additional Health Concerns Assessment Noted Time PHQ-9 Depression Total Score: 0 04/23/19 9:18 AM EST documented as of this encounter Care Teams Print Controller Relationship Specialty Start Date End Date Nancy Larose FNP PCP - General Family Medicine 12/08/21 01/12/23 Nahomy Davies MD 230 [place], [place] [phone] PCP - General Internal Medicine 01/13/23 [facility] 11/17/24 documented as of this encounter
--- OUTSIDE RECORDS SUMMARY | 2024-12-27 13:52 | XMS_ITS | Encounter Summary ---
Author Organization [employer] Address 75 [facility] 7t [place] [address] Care Team Providers Care Tooth Clerk Name Role Phone Nahomy Davies MD Primary Care Pro vider Reason for Visit * Reason Comments Med Refill Encounter Details Date Type Department Care Team ([facility] st Contact Info) Description 02/07/2023 Refill [facility] [address] [place] [address] Nancy Larose FNP Social History Tobacco Use [...] 9:15 AM EDT Office Visit [facility] MEDICINE [address] [place] [phone] Karrie Carlisle MD [address] [place] [address] documented as of this encounter Visit Diagnoses Not on filedocumented in this encounter Additional Health Concerns Assessment Noted Time PHQ-9 Depression Total Score: 0 04/23/19 23 9:18 AM EST documented as of this encounter Care Teams Tooth Clerk Relationship Specialty Start Date End Date Nahomy Davies MD [address] [place] [phone] PCP - General Internal Medicine 01/13/23 [facility] 11/17/24 documented as of this encounter
--- OUTSIDE RECORDS SUMMARY | 2024-12-27 13:52 | XMS_ITS | Encounter Summary ---
Author Organization [employer] Address 75 [facility] 7t [place] [address] Care Team Providers Care Yarn Sizer Name Role Phone Nancy Larose [facility] Primary Care Provider Nahomy Wilkins MD Primary Care Pro vider Reason for Visit * Reason Comments Med Refill Encounter Details Date Type Department Care Team (Late st Contact Info) Description 09/23/2022 Refill [facility] [address] [place] [address] [phone] Nancy Larose FNP Shortness of breath Social [...] Description 01/18/2025 9:15 AM EDT Office Visit [facility] [address] [place] [address] [phone] Karrie Carlisle MD [address] [place] [address] [phone] documented as of this encounter Visit Diagnoses Diagnosis Shortness of breath documented in this encounter Additional Health Concerns Assessment Noted Time PHQ-9 Depression Total Score: 0 04/23/19 9:18 AM EST documented as of this encounter Care Teams Yarn Sizer Relationship Specialty Start Date End Date Nancy Larose FNP PCP - General Family Medicine 12/08/21 01/12/23 Nahomy Davies MD [address] [place] [phone] PCP - General Internal Medicine 01/13/23 [facility] 11/17/24 documented as of this encounter
--- OUTSIDE RECORDS SUMMARY | 2024-12-27 13:52 | XMS_ITS | Encounter Summary ---
Author Organization [employer] Address 75 [facility] 7t [place] [address] Care Team Providers Care Rn Lactation Name Role Phone Nahomy Davies MD Primary Care Pro vider Reason for Visit * Reason Comments Med Refill Encounter Details Date Type Department Care Team ([facility] st Contact Info) Description 03/07/2024 Refill [facility]INE 230 [place], [place] [phone] Irene Mei MD 230 [place], [place] [phone] Shortness of breath; Type 2 diabetes mellitus with other specified complication, with long-term current use of insulin ([facility]); Chronic neck pain Social History Tobacco Use [...] 9:15 AM EDT Office Visit [facility] MEDICINE [address] [place] [phone] Karrie Carlisle MD [address] [place] [phone] documented as of this encounter Visit Diagnoses Diagnosis Shortness of breath Type 2 diabetes mellitus with other specified complication, with long-term current use of insulin ([facility]) Chronic neck pain Cervicalgia documented in this encounter Additional Health Concerns Assessment Noted Time PHQ-9 Depression Total Score: 0 04/23/19 23 9:18 AM EST documented as of this encounter Care Teams Rn Lactation Relationship Specialty Start Date End Date Nahomy Davies MD [address] [place] [phone] PCP - General Internal Medicine 01/13/23 [place] [facility] 11/17/24 documented as of this encounter
--- OUTSIDE RECORDS SUMMARY | 2024-12-27 13:52 | XMS_ITS | Encounter Summary ---
Author Organization [employer] Address 75 [facility] 7t [place] [address] Care Team Providers Care Analytical Scientist Name Role Phone Nahomy Davies MD Primary Care Pro vider Reason for Visit * Reason Comments Med Refill Encounter Details Date Type Department Care Team ([facility] st Contact Info) Description 02/28/2024 Refill [facility] 230 [place], [place] [phone] Irene Mei MD 230 [place], [place] [phone] Type 2 diabetes mellitus with other specified complication, with long-term current use of insulin ([facility]); Shortness of breath; Chronic [...] [facility] [address] [place] [phone] Karrie Carlisle MD [address] [place] [phone] documented as of this encounter Visit Diagnoses Diagnosis Type 2 diabetes mellitus with other specified complication, with long-term current use of insulin ([facility]) Shortness of breath Chronic neck pain Cervicalgia documented in this encounter Additional Health Concerns Assessment Noted Time PHQ-9 Depression Total Score: 0 04/23/19 23 9:18 AM EST documented as of this encounter Care Teams Analytical Scientist Relationship Specialty Start Date End Date Nahomy Davies MD [address] [place] [phone] PCP - General Internal Medicine 01/13/23 [facility] 11/17/24 documented as of this encounter
--- OUTSIDE RECORDS SUMMARY | 2024-12-27 13:52 | XMS_ITS | Encounter Summary ---
Author Organization [employer] Address [address] [facility] 7t [place] [address] Care Team Providers Care Welcome Center Attendant Name Role Phone Nahomy Davies MD Primary Care Pro vider Reason for Visit * Reason Comments Med Refill Encounter Details Date Type Department Care Team ([facility] st Contact Info) Description 03/05/2024 Refill [facility] MEDICINE 230 [place], [place] [phone] Irene Mei MD 230 [place], [place] [phone] Type 2 diabetes mellitus with other specified complication, with long-term current use of insulin ([facility]); Shortness of breath; Chronic neck pain Social [...] Description 01/18/2025 9:15 AM EDT Office Visit [facility]INE [address] [place] [phone] Karrie Carlisle MD [address] [place] [phone] documented as of this encounter Visit Diagnoses Diagnosis Type 2 diabetes mellitus with other specified complication, with long-term current use of insulin ([facility]) Shortness of breath Chronic neck pain Cervicalgia documented in this encounter Additional Health Concerns Assessment Noted Time PHQ-9 Depression Total Score: 0 04/23/19 23 9:18 AM EST documented as of this encounter Care Teams Welcome Center Attendant Relationship Specialty Start Date End Date Nahomy Davies MD [address] [place] [phone] PCP - General Internal Medicine 01/13/23 [facility] 11/17/24 documented as of this encounter
--- OUTSIDE RECORDS SUMMARY | 2024-12-27 13:52 | XMS_ITS | Clinical Summary ---
Author Organization [employer] Address [address] [place] [address] Care Team Providers Care Medical Tech Name Role Phone Nahomy Davies MD [...] long-term current use of insulin ([facility]) APPLY A SMALL AMOUNT TOPICALLY TO AFFECTED AREA(S) TWO TIMES A DAY 60 g 3 023 Active latanoprost (Xalatan) 0.005 % ophthalmic solution Administer 1 drop into both eyes at bedtime. 023 Active brimonidine-timol ol (Combigan) 0.2-0.5 % ophthalmic solution Administer 1 drop into both eyes 2 times daily. 023 Active Continuous Glucose Stonecutter Assistant (FreeStyle Anthony 2 Esopus) device Use as directed to monitor glucose ever 8 hours. 1 each 024 Active Continuous Glucose Sensor (FreeStyle Anthony 2 Sensor) misc Use as directed to monitor glucose ever 8 hours. Replace sensor every 14 days. 2 each Active Senna-Time 8.6 MG tablet TAKE 2 TABLETS BY MOUTH EVERY DAY AT BEDTIME FOR CONSTIPATION Active Diclofenac Sodium 1 % gel APPLY TOPICALLY EACH DAY IF NEEDED FOR SHOULDER PAIN (BULK) 100 g 5 024 Active glucose 4 g chewable tabletIndications :Type 2 diabetes mellitus with other specified complication, with long-term current use of insulin ([facility]) CHEW AND SWALLOW 4 TABLETS BY MOUTH IF NEEDED FOR LOW BLOOD SUGAR (BULK) 50 tablet 3 Active Continuous Glucose Stonecutter Assistant (FreeStyle Anthony 3 Esopus) deviceIndications :Type 2 diabetes mellitus with other specified complication, with long-term current use of insulin ([facility]) 1 each Once per day. Use as directed for CGM 1 each 025 Active Continuous Glucose Sensor (FreeStyle Anthony 3 Plus Sensor) miscIndications:T ype 2 diabetes mellitus with other specified complication, with long-term current use of insulin ([facility]) 1 each every 15 days. Apply 1 every 15 days as directed for CGM 2 each Active Icosapent Ethyl (Vascepa) 1 g capsule Take 2 capsules (2 g) by mouth with breakfast and with evening meal. 120 capsule 025 2025 Active ferrous gluconate (Fergon) 324 (38 Fe) MG tabletIndications :Iron deficiency anemia, unspecified iron deficiency anemia type TAKE ONE TABLET BY MOUTH EVERY DAY WITH BREAKFAST 30 tablet Active Ascorbic Acid (vitamin C) 250 MG tabletIndications :Iron deficiency anemia, unspecified iron deficiency anemia type TAKE ONE TABLET BY MOUTH EVERY MORNING ^1R1 30 tablet 025 Active glucose blood (FreeStyle Precision Mahesh Test) test stripIndications: Type 2 diabetes mellitus without complication, without long-term current use of insulin ([facility]) USE TO TEST BLOOD SUGAR THREE TIMES A DAY 100 each 025 Active metFORMIN XR (Glucophage-XR) 500 MG 24 hr tabletIndications :Type 2 diabetes mellitus without complication, without long-term current use of insulin ([facility]) TAKE TWO TABLETS BY MOUTH TWICE A DAY WITH FOOD 112 tablet 025 Active metoprolol succinate XL (Toprol-XL) 50 MG 24 hr tabletIndications :Essential hypertension TAKE ONE TABLET BY MOUTH EVERY DAY ^1R1 30 tablet Active aspirin (Aspirin Low Dose) 81 MG EC tablet TAKE ONE TABLET BY MOUTH EVERY DAY 30 tablet 025 Active Calcium Carb-Cholecalcife rol (Calcium + Vitamin [...] 2 diabetes mellitus without complication, unspecified whether care home insulin use ([facility]) Apply 1 Act topically at noon [...] BY MOUTH ONCE A DAY 30 tablet 025 Active fluticasone-salme terol (Advair) 115-21 MCG/ACT inhaler Inhale 2 puffs in the morning and at bedtime. Rinse mouth with water after use to reduce aftertaste and incidence of candidiasis. Do not swallow. 12 g 025 2025 Active losartan (Cozaar) 25 MG tablet [...] MOUTH EVERY DAY ^1R1 30 tablet Active BD Pen Needle Short Ultrafine 31G [...] mouth Once per day. 90 tablet 025 2025 Active insulin glargine (Lantus SoloStar) 100 UNIT/ML penIndications:Ty pe 2 diabetes mellitus with hypoglycemia without coma, with long-term current use of insulin (CMS/HCC) INJECT 18 UNITS UNDER THE SKIN AT BEDTIME (BULK) 30 mL Active Acetaminophen Extra Strength 500 MG tabletIndications :Type 2 diabetes mellitus without complication, without long-term current use of insulin (CMS/HCC) TAKE ONE TO TWO TABLETS BY MOUTH THREE TIMES A DAY NEEDED (VIAL) 60 tablet 1 Active insulin glargine (Lantus SoloStar) 100 UNIT/ML penIndications:Ty pe 2 diabetes mellitus with hypoglycemia without coma, with long-term current use of insulin ([facility]) Inject 18 Units under the skin at bedtime. 30 mL 11 024 2024 Discontinued albuterol 108 (90 Base) MCG/ACT inhalerIndication s:Shortness of breath INHALE TWO PUFFS BY MOUTH FOUR TIMES A DAY (BULK) 8.5 g 3 024 2024 Discontinued(R eorder (will not trigger notification to Pharmacy)) atorvastatin (Lipitor) 40 MG tablet Take 1 tablet (40 mg) by mouth Once per day. 90 tablet 025 2024 Discontinued(R eorder (will not trigger notification to Pharmacy)) Acetaminophen Extra Strength 500 MG tabletIndications :Type 2 diabetes mellitus without complication, without long-term current use of insulin ([facility]) TAKE ONE TO TWO TABLETS BY [...] Encounters Date Type Department Care Team Description 12/26/2024 Refill [facility] [address] [place], [place] [phone] Nahomy Davies MD Iron deficiency anemia, unspecified iron deficiency anemia type 12/20/2024 Refill [facility] [address] [place], [place] [phone] Nahomy Davies MD Type 2 diabetes mellitus without complication, without long-term current use of insulin ([facility]) 12/17/2024 Refill [facility] [address], [place] [phone] Nahomy Davies MD Type 2 diabetes mellitus with hypoglycemia without coma, with long-term current use of insulin (CMS/[facility]) 12/11/2024 Telephone [facility] [address], [place] [phone] Kiarra Iniguez RN NTTS Triage 11/28/2024 Refill [facility] [address], [place] [phone] Nahomy Davies MD Shortness of breath 11/27/2024 Refill [facility] [address] [place], [place] [phone] Nahomy Davies MD Shortness of breath; Type 2 diabetes mellitus without complication, without long-term current use of insulin (CMS/[facility]) 11/25/2024 Refill [facility] [address] [place] [address] Nahomy Davies MD 11/22/2024 Telephone [facility] [address] [place], [place] [phone] Nahomy Davies MD telephone call 11/21/2024 Refill [facility] [address] [place] [phone] Sabrina Gonzalez NP 11/20/2024 Telephone [facility] [address] [place] [address] Nahomy Davies MD fyi 11/19/2024 Refill [facility] [address] [place] [address] Nahomy Davies MD 11/16/2024 Refill [facility] [address] [place] [address] Nahomy Davies MD Type 2 diabetes mellitus without complication, without long-term current use of insulin ([facility]) 11/15/2024 Results Follow-Up [facility] [address] [place] [address] Abdomen Pelvis w/o Contrast 11/15/2024 Orders Only [facility] External Provider, [facility] 11/14/2024 8:40 AM EDT Office Visit [facility] [address] [place] [phone] Jp Snow MD Chronic right-sided low back pain with right-sided sciatica (Primary Dx); Chronic neck pain 11/14/2024 Travel 11/08/2024 Orders Only [facility] [address] [place] [phone] Nahomy Davies MD 10/31/2024 Refill [facility] [address] [place] [address] Sabrina Gonzalez NP 10/31/2024 Refill [facility] [address] [place] [address] Nahomy Davies MD Type 2 diabetes mellitus without complication, without long-term current use of insulin (CMS/HCC) 10/30/2024 1:30 PM EDT Office Visit [facility] [address] [facility] [place] [address] Nahomy Davies MD Chronic pain of both shoulders (Primary Dx); Abnormal CXR; Numbness; Type 2 diabetes mellitus with other specified complication, with long-term current use of insulin (CMS/HCC); Paralysis (CMS/HCC); Mixed hyperlipidemia; Parotid nodule; Class 2 obesity due to excess calories without serious comorbidity with body mass index (BMI) of 35.0 to 35.9 in adult; Health care maintenance; Acute pain of left shoulder; Chronic nonintractable headache, unspecified headache type; Mild persistent asthma with acute exacerbation 10/30/2024 Travel 10/29/2024 Telephone [facility] [address] [place] [address] Nahomy Davies MD chart prep 10/22/2024 Refill [facility] [address] [place] [address] Nahomy Davies MD Cobalamin deficiency 10/22/2024 Refill [facility] [address] [place] [address] Nahomy Davies MD Cobalamin deficiency 10/19/2024 10:30 AM EDT Clinical Support [facility] [address] [place] [address] Fanny Villegas RN Type 2 diabetes mellitus with other specified complication, with long-term current use of insulin ([facility]); Essential hypertension 10/19/2024 Orders Only [facility] [address] [place] [address] Nahomy Davies MD 10/19/2024 Telephone [facility] [address] [place] [address] Nahomy Davies MD Appointment 10/19/2024 Orders Only [facility] [address] [place] [address] Nahomy Davies MD 10/19/2024 Travel 10/10/[address] [address] Kiarra Iniguez RN [facility] 10/05/[address] [address] Kiarra Iniguez RN Appointment Request; Referral 10/04/2024 Orders Only [address] [address] Nahomy Davies MD Nonintractable headache, unspecified chronicity pattern, unspecified headache type (Primary Dx); Elevated C-reactive protein (CRP); Blurry vision, bilateral 10/03/2024 Refill [facility] [address] [place], [place] [phone] Nahomy Davies MD Cobalamin deficiency 10/01/2024 Orders Only [address] [address] Nahomy Davies MD Chronic pain of both shoulders (Primary Dx) 10/01/2024 Results Follow-Up [address] [address] Nahomy Davies MD XR Chest 2 Views, XR Shoulder 2+ Views Right, XR Shoulder 2+ Views Left, Additional followed-up results: 2 10/01/[address] [address] Nahomy Davies MD Referral 09/28/[address] [address] Nahomy Davies MD ENT no APPT 09/26/2024 2:15 PM EDT Office Visit [address] [address] Nahomy Davies MD Chronic pain of both shoulders (Primary Dx); Thyroid nodule; Annual physical exam; SOB (shortness of breath); Lower extremity edema; Type 2 diabetes mellitus with other specified complication, with long-term current use of insulin ([facility]); Foot callus; Nonintractable headache, unspecified chronicity [...] with acute exacerbation; Scalp lesion 09/26/2024 Telephone [facility] [address] [place] [phone] Nahomy Davies MD Appointment Request 09/26/2024 Travel from Last 3 Months Immunizations Immunization Administration [...] 01/18/2025 9:15 AM EDT Office Visit [facility] [address] [place] [address] Karrie Carlisle MD [address] [place] [address] Health Maintenance Due Date Last Done Comments [...] AM EDT Chronic pain of both shoulders BI MAMMOGRAM SCREENING TOMOSYNTHESIS BILATERAL Routine 08/16/2024 [...] AM EDT Narrative 11/15/2024 11:56 AM EDT [place] [address] [address] Scan Report Signed Patient: Arlette Dias MR#: [id number] : 1945 Acct:[id number] Age/Sex: 79 / F ADM Date: 11/15/24 Loc: .ED Attending Dr: Ordering Physician: Sekou North MD Date of Service: 11/15/24 Procedure(s): CT abdomen pelvis wo IV con Accession Number(s): [id number] cc: Sekou North MD; Nahomy Davies MD Report Number: [id number]: Total DLP = 673.00 mGy-cm EXAMINATION: CT [...] 11/15/24 1153 DD/ 1028 TD/TT: 11/15/24 1143 Library Clerical Assistant: Procedure Note Donotuseinterpreter, Image - 11/15/[address] [address] [address] Scan Report Signed Patient: Clarisa Dias#: [id number] : 7Acct:[id number] Age/Sex: 79 / FADM Date: 11/15/24 Loc: HO.ED Attending Dr: Ordering Physician: Sekou North MD Date of Service: 11/15/24 Procedure(s): CT abdomen pelvis wo IV con Accession Number(s): [id number] cc: Sekou North MD; Nahomy Davies MD Report Number: [id number]: Total DLP = 673.00 mGy-cm EXAMINATION: CT [...] 11/15/24 1153 DD/ 1028 TD/TT: 11/15/24 1143 Library Clerical Assistant: [facility] External Provider IMG CT PROCEDURES Final Result * Culture, Urine, Routine (11/14/2024 9:12 AM EDT) Urine Urine specimen obtained by clean catch procedure / Unknown 11/14/2024 9:12 AM EDT 11/14/2024 5:14 PM EDT Comment:UACC Narrative [facility] - 11/16/2024 10:42 AM EDT Urine Culture No growth. Specimen Source: Urine clean catch Jp Snow MD LAB MICROBIOLOGY - GENERAL ORDER CARLOS Final Result [facility] [address] [place] [phone] * XR Lumbar Spine 2-3 Views (11/14/2024 8:29 AM EDT) Anatomical Region Laterality Modality Spine, L-spine Radiographic Sylvia ging 11/14/2024 8:29 AM EDT Narrative 11/14/2024 9:50 AM EDT [address] [address] XRay Report Signed Patient: Arlette Dias MR#: [id number] : 1945 Acct:[id number] Age/Sex: 79 / F ADM Date: 11/14/24 Loc: HO.HHCX Attending Dr: Jp Snow MD Ordering Physician: JP SNOW MD Date of Service: 11/14/24 Procedure(s): XR lumbar spine 2-3V Accession Number(s): [id number] cc: JP SNOW MD EXAMINATION: XR LUMBOSACRAL [...] signed by Jony Jama MD in OV> 11/14/24946 DD/ 8 TD/TT: 11/14/24 09 Library Clerical Assistant: Procedure Note Donotuseinterpreter, Image - 11/14/[address] [address] XRay Report Signed Patient: Gifty DaisR#: [id number] : 1945cct:[id number] Age/Sex: 79 / FADM Date: 11/14/24 Loc: HO.HHCX Attending Dr: Jp Snow MD Ordering Physician: JP SNOW MD Date of Service: 11/14/24 Procedure(s): XR lumbar spine 2-3V Accession Number(s): [id number] cc: JP SNOW MD EXAMINATION: XR LUMBOSACRAL [...] Jama MD in OV> 11/14/24 0947 DD/ 0829 TD/TT: 11/14/24 0900 Library Clerical Assistant: us Jp Snow MD IMG XR PROCEDURES Edited Result - Final * Vascular US lower extremity venous insufficiency bilateral (11/02/2024 10:47 AM EDT) 11/02/2024 10:4 7 AM EDT Narrative [facility] - 11/02/2024 11:38 AM EDT [address] [address] Ultrasound Report Signed Patient: Arlette Dias MR#: [id number] : 1945 Acct:[id number] Age/Sex: 79 / F ADM Date: 07/25/25 Loc: HO.US Attending Dr: Nahomy Kessler MD Ordering Physician: Nahomy Davies MD Date of Service: 11/02/24 Procedure(s): US venous insuf bilat Accession Number(s): [id number] cc: Nahomy Davies MD EXAMINATION: US LOWER [...] 11/02/24 1136 DD/ 1047 TD/TT: 11/02/24 1118 Library Clerical Assistant: Procedure Note Donotuseinterpreter, Image - 11/02/[address] [address] Ultrasound Report Signed Patient: Sampson Louie,FelicitaMR#: [id number] : 7Acct:[id number] Age/Sex: 79 / FADM Date: 11/02/24 Loc: HO.US Attending Dr: Nahomy Kessler MD Ordering Physician: Nahomy Davies MD Date of Service: 11/02/24 Procedure(s): US venous insuf bilat Accession Number(s): [id number] cc: Nahomy Davies MD EXAMINATION: US LOWER [...] 11/02/24 1136 DD/ 1047 TD/TT: 11/02/24 1118 Library Clerical Assistant: us Nahomy Kessler MD CV VASCULAR PROCE JEANNE Edited Result - Final [facility] [address] [place] [phone] * MR Brain w/o Contrast (10/20/2024 10:35 AM EDT) Anatomical Region Laterality Modality Brain Magnetic Resonan ce 10/20/2024 10:3 5 AM EDT Narrative 10/22/2024 7:30 AM EDT [address] [address] Magnetic Resonance Report Signed Patient: Arlette Dias MR#: [id number] : 1945 Acct:[id number] Age/Sex: 79 / F ADM Date: 10/20/24 Loc: HO.MRI Attending Dr: Nahomy Kessler MD Ordering Physician: Nahomy Davies MD Date of Service: 10/20/24 Procedure(s): MR head/brain wo con Accession Number(s): [id number] cc: Nahomy Davies MD EXAMINATION: MR BRAIN [...] by Grzegorz Borden MD in OV> 10/22/24 0727 DD/ 1035 TD/TT: 10/20/24 1100 Library Clerical Assistant: Procedure Note Donotuseinterpreter, Image - 10/22/2024 [place] [address] Magnetic Resonance Report Signed Patient: Clarisa Dias#: [id number] : 1945cct:[id number] Age/Sex: 79 / FADM Date: 10/20/24 Loc: HO.MRI Attending Dr: Nahomy Kessler MD Ordering Physician: Nahomy Davies MD Date of Service: 10/20/24 Procedure(s): MR head/brain wo con Accession Number(s): [id number] cc: Nahomy Davies MD EXAMINATION: MR BRAIN [...] Grzegorz Borden MD 10/22/2024 07:27 AM EDT Dictated By: Grzegorz Borden MD Signed By: <Electronically signed by Grzegorz Borden MD in OV> 10/22/24726 DD/ 1035 TD/TT: 10/20/24 1100 Library Clerical Assistant: Nahomy Kessler MD IM MRI PROCEDURE S Final Result * Vitamin D, 25-Hydroxy, Total, Immunoassay (10/04/2024 9:16 AM EDT) Vitamin D 25-OH Total 69.8 >30 ng/mL [facility] Comment: Health Based Reference Values*< 20 ng/mL [id number] ng/mL Insufficient> 30 ng/mL Sufficient*Brigida . N Engl J Med. 2007;357:266-280There is no [...] ORDERAB LES Final Result Performing Organization Address [facility]/ZIP Co de Phone Number [facility] [address] [place] [phone] * Vitamin B12 (Cobalamin) and Folate Panel, Serum (10/04/2024 9:16 AM EDT) Vitamin B12 869 200 - 900 pg/mL [facility] Comment:NORMAL 200-900 PG/ML INDETERMINATE 160-199 PG/ML DEFICIENT < 160 PG/ML Folate 14.4 > or = 4.0 ng/mL [facility] Comment:Reference Values:> o r = 4.0 ng/mL< 4.0 ng/mL suggests folate deficiency Methotrexate, aminopterin and folinic acid(leucovorin) are chemotherapeutic agents whose molecularstructures are similar to folate; therefore, the Architectfolate assay cannot be used for patients using these drugs. Blood 10/04/2024 9:16 AM EDT 10/04/2024 11:27 AM EDT us Nahomy Kessler MD LAB BLOOD ORDERAB LES Final Result Performing Organization Address [facility] Co de Phone Number [facility] [address] [place] [phone] * Albumin, Random Urine W/Creatinine (10/04/2024 9:16 AM EDT) Creatinine, Urine 111.46 mg/dL [facility] Microalbumin Urine 31.0 mg/L [facility] Microalbum Creatinine Ratio Ur 27.8 <30 ug/mg cr [facility] Comment:Albumin/Creatinine R atio Reference Ranges: Normal: < 30 ug/mg creatinine Microalbuminuria: 30 - 300 ug/mg creatinineClinical Albuminuria: > 300 ug/mg creatinine Urine (Urine, Random) 10/04/2024 9:16 AM EDT 10/04/2024 11:22 AM EDT us Nahomy Kessler MD LAB URINE ORDERAB LES Final Result Performing Organization Address [facility]/ZIP Co de Phone Number [facility] [address] [place] [phone] * (ABNORMAL) Iron And Total Iron Binding Capacity (10/04/2024 9:16 AM EDT) Iron 41 30 - 160 mcg/dL [facility] Total Iron Binding Capacity 305 228 - 428 mcg/dL [facility] Percent Iron Saturation 13(L) 15 - 50 % [facility] Unsaturated Iron Binding 264 ug/dL [facility] Blood Venous blood specimen / Unknown 10/04/2024 9:16 AM EDT 10/04/2024 11:27 AM EDT us Nahomy Kessler MD LAB BLOOD ORDERAB LES Final Result Performing Organization Address [facility] Co de Phone Number [facility] [address] [place] [phone] * (ABNORMAL) Sed Rate by Modified Maryellenren (10/04/2024 9:16 AM EDT) Erythrocyte Sedimentation Rate 22(H) 0 - 20 MM/HR [facility] Comment:Patients with polycy themia and many hemoglobin abnormalitiesmay have depressed sed rates whereas patients with anemiamay have elevated sed rates. Blood Venous blood specimen / Unknown 10/04/2024 9:16 AM EDT 10/04/2024 11:27 AM EDT us Nahomy Kessler MD LAB BLOOD ORDERAB LES Final Result Performing Organization Address [facility]/ZIP Co de Phone Number [facility] [address] [place] [phone] * (ABNORMAL) CBC (10/04/2024 9:16 AM EDT) [facility] White Blood Count 6.6 4.8 - 10.8 X10*3/uL [facility] Red Blood Count 4.11(L) 4.20 - 5.50 X10*6/uL [facility] Hemoglobin 11.3(L) 12.0 - 16.0 g/dl [facility] Hematocrit 35.0(L) 37.0 - 47.0 % [facility] Mean Corpuscular Volume 85.2 80.0 - 98.0 fL [facility] Mean Corpuscular Hemoglobin 27.5 27.0 - 33.0 pg [facility] Mean Corpuscular HGB Conc 32.3 31.0 - 35.0 g/dl [facility] Red Cell Distribution Width 17.2(H) 11.0 - 16.0 % [facility] Platelet Count 250 160 - 400 X10*3/uL [facility] Mean Platelet Volume 10.0 9.4 - 12.3 fL [facility] NRBC Pct Auto 0.0 0.0 - 0.2 /100WBC [facility] NRBC Abs Auto 0.000 0.0 - 0.012 X10*3/uL [facility] Blood Venous blood specimen / Unknown 10/04/2024 9:16 AM EDT 10/04/2024 11:27 AM EDT Nahomy Kessler MD LAB BLOOD ORDERAB LES Final Result [facility] [address] [place] [phone] * (ABNORMAL) C-reactive Protein (10/04/2024 9:16 AM EDT) [facility] C Reactive Protein 0.68(H) < or = 0.50 mg/dL [facility] Blood Venous blood specimen / Unknown 10/04/2024 9:16 AM EDT 10/04/2024 11:27 AM EDT Nahomy Kessler MD LAB BLOOD ORDERAB LES Final Result Performing Organization Address [facility] Co de Phone Number [facility] [address] [place] [phone] * TSH (10/04/2024 9:16 AM EDT) Pathologist [facility] Thyroid Stimulating Hormone 0.65 0.32 - 4.0 uIU/mL [facility] Comment:TSH 3rd Generation ( [facility]) Blood Venous blood specimen / Unknown 10/04/2024 9:16 AM EDT 10/04/2024 11:27 AM EDT Nahomy Kessler MD LAB BLOOD ORDERAB LES Final Result Performing Organization Address [facility] [address] [place] [phone] * T4, Free (10/04/2024 9:16 AM EDT) [facility] Free T4 (Free Thyroxine) 1.11 0.71 - 1.85 ng/dL [facility] Blood Venous blood specimen / Unknown 10/04/2024 9:16 AM EDT 10/04/2024 11:27 AM EDT Nahomy Kessler MD LAB BLOOD ORDERAB LES Final Result Performing Organization Address [facility] Co de Phone Number [facility] [address] [place] [phone] * B Type Natriuretic Peptide (BNP) (10/04/2024 9:16 AM EDT) Pathologist [facility] B Type Natriuretic Peptide 24 <100 pg/mL [facility] Blood Venous blood specimen / Unknown 10/04/2024 9:16 AM EDT 10/04/2024 11:23 AM EDT us Nahomy Kessler MD LAB BLOOD ORDERAB LES Final Result Performing Organization Address [facility] Co de Phone Number [facility] LABS [address] [place] [phone] * (ABNORMAL) Hemoglobin A1c (10/04/2024 9:16 AM EDT) Hemoglobin A1c 7.1(H) <6.0 % [facility] Comment:Hemoglobin A1C Refer ence Range Adults: 4.8 - 6.0 % Non diabetic: < 6.0 % Goal: < 7.0 %Additional Action Suggested: > 8.0 %Note: Hemoglobin A1c results are invalid for patients with abnormal amounts of HbF. Blood transfusions may impact the HbA1c concentration in the patient sample. Estimated Average Glucose 157 mg/dL [facility] Comment:eAG = Estimated ave rage glucose which is %A1C expressed asaverage glucose, using the formula of the H9N-HyxfgxnYmhgknn Glucose study (ADAG), Diabetes Care, Vol.31,#8,Nov. 2007 Blood Venous blood specimen / Unknown 10/04/2024 9:16 AM EDT 10/04/2024 11:27 AM EDT us Nahomy Kessler MD LAB BLOOD ORDERAB LES Final Result Performing Organization Address [facility] Co de Phone Number [facility] [address] [place] [address] [phone] * Ferritin (10/04/2024 9:16 AM EDT) Ferritin 11 10 - 250 ng/mL [facility] Blood Venous blood specimen / Unknown 10/04/2024 9:16 AM EDT 10/04/2024 11:27 AM EDT us Nahomy Kessler MD LAB BLOOD ORDERAB LES Final Result Performing Organization Address [facility]/ZIP Co de Phone Number [facility] [address] [place] [phone] * (ABNORMAL) Lipid Panel, Standard (10/04/2024 9:16 AM EDT) Triglycerides 210(H) <150 mg/dL [facility] Comment:Desirable Triglyceri de: less than 150 mg/dLBorderline High Triglyceride 150-199 mg/dLHigh Triglyceride: 200-499 mg/dLVery High Triglyceride: greater than or equal to 5OO mg/dL Cholesterol 231(H) <200 mg/dL [facility] Comment:Desirable Cholestero l: less than 200 mg/dLBorderline High Cholesterol: 200-239 mg/dLHigh Cholesterol: greater than 239 mg/dL LDL Cholesterol Calculated 147(H) <100 mg/dL [facility] Comment:Desirable LDL: less than 100 mg/dLNear Optimal/Above Optimal LDL: 110- 129 mg/dLBorderline High LDL: 130-159 mg/dLHigh LDL: 160-189 mg/dLVery High LDL: greater than or equal to 190 mg/dL HDL Cholesterol 42 >40 mg/dL [facility] Comment:Desirable HDL: great er than 40 mg/dL Note: This HDL assay may give artificially low results in patients with liver disease. Blood Venous blood specimen / Unknown 10/04/2024 9:16 AM EDT 10/04/2024 11:27 AM EDT us Nahomy Kessler MD LAB BLOOD ORDERAB LES Final Result [facility] [address] [place] [address] [phone] * (ABNORMAL) Comprehensive Metabolic Panel (10/04/2024 9:16 AM EDT) Sodium 144 135 - 145 mmol/L [facility] Potassium 4.1 3.3 - 5.1 mmol/L [facility] Chloride 108 96 - 108 mmol/L [facility] Carbon Dioxide 27 22 - 29 mmol/L [facility] Anion Gap 13 12 - 20 [facility] Urea Nitrogen (BUN) 9 9 - 16 mg/dL [facility] Creatinine, Serum 0.67 0.5 - 1.4 mg/dL [facility] Estimated Glomerular Filt Rate >60 [facility] Comment:Chronic Kidney Disea se: Estimated GFR < 60 mL/min/1.05q3Aiwlbl Kidney Disease: Estimated GFR < 15 mL/min/1.73m2 Glucose 171(H) 60 - 115 mg/dL [facility] Calcium 9.7 8.4 - 10.2 mg/dL [facility] Bilirubin, Total 0.5 0.0 - 1.0 mg/dL [facility] Aspartate Amino Transferase 25 5 - 31 U/L [facility] Alanine Aminotransferase 17 0 - 31 U/L [facility] Total Protein 7.3 6.5 - 8.0 g/dL [facility] Albumin Level 4.1 3.5 - 5.0 g/dL [facility] Alkaline Phosphatase 106 39 - 117 U/L [facility] Blood Venous blood specimen / Unknown 10/04/2024 9:16 AM EDT 10/04/2024 11:27 AM EDT us Nahomy Kessler MD LAB BLOOD ORDERAB LES Final Result Performing Organization Address City/State/[facility] Co de Phone Number [facility] [address] [place] [address] [phone] * XR Chest 2 Views (10/01/2024 9:16 AM EDT) Anatomical Region Laterality Modality Chest Radiographic Sylvia ging 10/01/2024 9:16 AM EDT Narrative 10/01/2024 10:39 AM EDT [facility] [address] [place] [address] XRay Report Signed Patient: Arlette Dias MR#: [id number] : 1945 Acct:[id number] Age/Sex: 79 / F ADM Date: 10/01/24 [facility]: Nahomy Kessler MD Ordering Physician: Nahomy Davies MD Date of Service: 10/01/24 Procedure(s): XR chest 2V Accession Number(s): [id number] cc: Nahomy Davies MD EXAMINATION: XR CHEST [...] in OV> 10/01/24 1037 DD/ 0916 TD/TT: 10/01/24919 Library Clerical Assistant: Procedure Note Donotuseinterpreter, Image - 10/01/[address] [address] XRay Report Signed Patient: Clarisa Dias#: [id number] : 1945cct:[id number] Age/Sex: 79 / FADM Date: 10/01/24 Loc: HO.[facility]X Attending Dr: Naohmy Kessler MD Ordering Physician: Nahomy Davies MD Date of Service: 10/01/24 Procedure(s): XR chest 2V Accession Number(s): [id number] cc: Nahomy Davies MD EXAMINATION: XR CHEST [...] 10/01/24 1037 DD/ 0916 TD/TT: 10/01/24 0920 Library Clerical Assistant: Nahomy Kessler MD IMG XR PROCEDURES Final Result * XR Shoulder 2+ Views Right (10/01/2024 9:11 AM EDT) Anatomical Region Laterality Modality Upper Extremities, Shoulder Right Radi ographic Imaging 10/01/2024 9:11 AM EDT Narrative 10/01/2024 10:21 AM EDT [address] [address] XRay Report Signed Patient: Arlette Dias MR#: [id number] : 1945 Acct:[id number] Age/Sex: 79 / F ADM Date: 10/01/24 Loc: HO.[facility]HCX Attending Dr: Nahomy Kessler MD Ordering Physician: Nahomy Davies MD Date of Service: 10/01/24 Procedure(s): XR shoulder RT min 2V Accession Number(s): [id number] cc: Nahomy Davies MD EXAMINATION: XR SHOULDER [...] OV> 10/01/24 1019 DD/ 0911 TD/TT: 10/01/24919 Library Clerical Assistant: Procedure Note Donotuseinterpreter, Image - 10/01/[address] [address] XRay Report Signed Patient: Gifty DiasR#: [id number] : 7Acct:[id number] Age/Sex: 79 / FADM Date: 10/01/24 Loc: HO.HHCX Attending Dr: Nahomy Kessler MD Ordering Physician: Nahomy Davies MD Date of Service: 10/01/24 Procedure(s): XR shoulder RT min 2V Accession Number(s): [id number] cc: Nahomy Davies MD EXAMINATION: XR SHOULDER [...] Grzegorz Borden MD 10/01/2024 10:19 AM EDT Dictated By: Grzegorz Borden MD Signed By: <Electronically signed by Grzegorz Borden MD in OV> 10/01/24 1019 DD/ 0911 TD/TT: 10/01/24919 Library Clerical Assistant: us Nahomy Kessler MD IMG XR PROCEDURES Final Result * XR Shoulder 2+ Views Left (10/01/2024 9:04 AM EDT) Anatomical Region Laterality Modality Upper Extremities, Shoulder Left Radi ographic Imaging 10/01/2024 9:04 AM EDT Narrative 10/01/2024 10:20 AM EDT [address] [place] [address] XRay Report Signed Patient: Arlette Dias MR#: [id number] : 1945 Acct:[id number] Age/Sex: 79 / F ADM Date: 10/01/24 Loc: HO.CX Attending Dr: Nahomy Kessler MD Ordering Physician: Nahomy Davies MD Date of Service: 10/01/24 Procedure(s): XR shoulder LT min 2V Accession Number(s): [id number] cc: Nahomy Davies MD EXAMINATION: XR SHOULDER [...] 10/01/24 1017 DD/ 0904 TD/TT: 10/01/24 0920 Library Clerical Assistant: Procedure Note Donotuseinterpreter, Image - 10/01/[address] [address] XRay Report Signed Patient: Gifty DiasR#: [id number] : 1945cct:[id number] Age/Sex: 79 / FADM Date: 10/01/24 Loc: HO.HHCX Attending Dr: Nahomy Kessler MD Ordering Physician: Nahomy Davies MD Date of Service: 10/01/24 Procedure(s): XR shoulder LT min 2V Accession Number(s): [id number] cc: Nahomy Davies MD EXAMINATION: XR SHOULDER [...] 10/01/24 1017 DD/ 0904 TD/TT: 10/01/24 0920 Library Clerical Assistant: Nahomy Kessler MD IMG XR PROCEDURES Final Result * BI Mammogram Screening Tomosynthesis Bilateral (08/16/2024 11:21 AM EDT) Anatomical Region Laterality Modality Breast Bilateral Mammography 08/16/2024 11:2 1 AM EDT Narrative 08/24/2024 3:17 PM EDT [facility] [address] [place] [id number] Mammography Report Signed Patient: Arlette Dias MR#: [id number] : 1945 Acct:[id number] Age/Sex: 79 / F ADM Date: 08/16/24 Loc: RADHA Attending Dr: Nahomy Kessler MD Ordering Physician: Nahomy Davies MD Re sults: 1Negative Date of Service: 08/16/24 Follow Up: 1 Year From Orig inal Mammogram Procedure(s): MM tomosynthesis screening BI Accession Number(s): [id number] cc: Nahomy Davies MD EXAMINATION: MM SCREENING [...] 08/24/24 1513 DD/ 1121 TD/TT: 08/16/24 1130 Library Clerical Assistant: Procedure Note Donotuseinterpreter, Image - 08/27/2024 [facility] [address] [place], [place] [address] Mammography Report Signed Patient: Annmarie DiasaMR#: [id number] : 7Acct:[id number] Age/Sex: 79 / FADM Date: 08/16/24 Loc: HOHowieMAMMO Attending Dr: Nahomy Kessler MD Ordering Physician: Nahomy Davies sults: 1Negative Date of Service: 08/16/24Follow Up: 1 Year From Orig inal Mammogram Procedure(s): MM tomosynthesis screening BI Accession Number(s): [id number] cc: Nahomy Davies MD EXAMINATION: MM SCREENING [...] 08/24/24 1513 DD/ 1121 TD/TT: 08/16/24 1130 Library Clerical Assistant: us Nahomy Kessler MD IMG BI PROCEDURES Edited Result - Final * Hepatitis C Antibody with Reflex to HCV, RNA, Quantitative, Real-Time PCR (03/22/2023 8:23 AM EST) Hepatitis C Antibody Nonreactive Nonreactive [facility] Comment:Antibodies to HCV no t detected; does not exclude early acuteHCV infection. Blood Venous blood specimen / Unknown 03/22/2023 8:23 AM EST 03/22/2023 11:12 AM EST us Nahomy Kessler MD LAB BLOOD ORDERAB LES Final Result [facility] [address] [place] [phone] from Last 3 Months or Most Recently Relevant to Health Maintenance Insurance [facility] LONG-TERM OPTIONS (HMO D-SNP) RUY BARROS [id number] Care Teams Medical Tech Relationship Specialty Start Date End Date Nahomy Davies MD [address] [place] [phone] PCP - General Internal Medicine [facility]23 [facility]
--- OUTSIDE RECORDS SUMMARY | 2024-12-27 13:52 | XMS_ITS | Encounter Summary ---
Author Organization [employer] Address [address] [facility] [address] [place] [address] Care Team Providers Care Deicer Repairer Electric Name Role Phone Nahomy Davies MD Primary Care Pro vider Reason for Visit * Reason Comments Med Refill Encounter Details Date Type Department Care Team ([facility] st Contact Info) Description 07/10/2024 Refill [facility] [address] [place] [address] Nahomy Davies MD 230 [place] [address] Iron deficiency anemia, unspecified iron deficiency anemia [...] 9:15 AM EDT Office Visit [facility] [address] [place] [phone] Karrie Carlisle MD [address] [place] [phone] documented as of this encounter Visit Diagnoses Diagnosis Iron deficiency anemia, unspecified iron deficiency anemia type documented in this encounter Additional Health Concerns Assessment Noted Time PHQ-9 Depression Total Score: 0 04/23/19 23 9:18 AM EST documented as of this encounter Care Teams Deicer Repairer Electric Relationship Specialty Start Date End Date Nahomy Davies MD [address] [place] [phone] PCP - General Internal Medicine [facility] documented as of this encounter
--- OUTSIDE RECORDS SUMMARY | 2024-12-27 13:52 | XMS_ITS | Encounter Summary ---
Author Organization [employer] Address 75 [facility] [address] [place] [address] Care Team Providers Care Wheel And Axle Inspector Name Role Phone Nahomy Davies MD Primary Care Pro vider Reason for Visit * Reason Comments Med Refill Encounter Details Date Type Department Care Team ([facility] st Contact Info) Description 01/30/2024 Refill [facility] [address] [place], [place] [phone] Nahomy Davies MD [address] [place] [address] Iron deficiency anemia, unspecified iron deficiency anemia [...] Upcoming Encounters Date Type Department Care Team ([facility] st Contact Info) Description 01/18/2025 9:15 AM EDT Office Visit [facility] [address] [place] [phone] Karrie Carlisle MD [address] [place] [phone] documented as of this encounter Visit Diagnoses Diagnosis Iron deficiency anemia, unspecified iron deficiency anemia type Mixed hyperlipidemia documented in this encounter Additional Health Concerns Assessment Noted Time PHQ-9 Depression Total Score: 0 04/23/19 23 9:18 AM EST documented as of this encounter Care Teams Wheel And Axle Inspector Relationship Specialty Start Date End Date Nahomy Davies MD [address] [place] [phone] PCP - General Internal Medicine [facility] documented as of this encounter
--- OUTSIDE RECORDS SUMMARY | 2024-12-27 13:52 | XMS_ITS | Encounter Summary ---
Author Organization [employer] Address 75 [facility] 7t [place] [address] Care Team Providers Care Installer Technician Name Role Phone Nahomy Davies MD Primary Care Pro vider Encounter Details Date Type Department Care Team ([facility] st Contact Info) Description 11/15/2024 Results Follow-Up [facility] [address] [place] [address] Nahomy Davies MD [address] [place] [address] CT Abdomen Pelvis w/o Contrast Social History [...] Description 01/18/2025 9:15 AM EDT Office Visit [facility] [address] [place] [phone] Karrie Carlisle MD 230 [place] [address] documented as of this encounter Visit Diagnoses Not on filedocumented in this encounter Additional Health Concerns Assessment Noted Time PHQ-9 Depression Total Score: 0 09/27/19 2:19 PM EDT documented as of this encounter Care Teams Installer Technician Relationship Specialty Start Date End Date Nahomy Davies MD [address] [place] [phone] PCP - General Internal Medicine [facility] documented as of this encounter
--- OUTSIDE RECORDS SUMMARY | 2024-12-27 13:52 | XMS_ITS | Encounter Summary ---
Author Organization [employer] Address 75 [facility] 7t [place] [address] Care Team Providers Care Commercial Drone Pilot Name Role Phone Nahomy Davies MD Primary Care Pro vider Reason for Visit * Reason Comments Med Refill Encounter Details Date Type Department Care Team ([facility] st Contact Info) Description 01/18/2024 Refill [facility] [address] [place], [place] [phone] Suyapa Doyle MD [address] [facility] [place] [address] Type 2 diabetes mellitus with other specified complication, with long-term current use of insulin ([facility]) Social History Tobacco Use Types Packs/Day Years [...] Description 01/18/2025 9:15 AM EDT Office Visit [facility] [address] [place] [phone] Karrie Carlisle MD [address] [place] [phone] documented as of this encounter Visit Diagnoses Diagnosis Type 2 diabetes mellitus with other specified complication, with long-term current use of insulin ([facility]) documented in this encounter Additional Health Concerns Assessment Noted Time PHQ-9 Depression Total Score: 0 04/23/19 23 9:18 AM EST documented as of this encounter Care Teams Commercial Drone Pilot Relationship Specialty Start Date End Date Nahomy Davies MD [address] [place] [phone] PCP - General Internal Medicine 01/13/23 [facility] 11/17/24 documented as of this encounter
--- OUTSIDE RECORDS SUMMARY | 2024-12-27 13:52 | XMS_ITS | Encounter Summary ---
Author Organization [employer] Address 75 [facility] 7t [place] [address] Care Team Providers Care Clinical Research Technician Name Role Phone Nahomy Davies MD Primary Care Pro vider Reason for Visit * Reason Comments Med Refill Encounter Details Date Type Department Care Team ([facility] st Contact Info) Description 04/20/2024 Refill [facility] [address] [place], [place] [phone] Suyapa Doyle MD [address] [place] [address] Iron deficiency anemia, unspecified iron deficiency anemia [...] 9:15 AM EDT Office Visit [facility] [address] [place] [phone] Karrie Carlisle MD [address] [place] [phone] documented as of this encounter Visit Diagnoses Diagnosis Iron deficiency anemia, unspecified iron deficiency anemia type documented in this encounter Additional Health Concerns Assessment Noted Time PHQ-9 Depression Total Score: 0 04/23/19 23 9:18 AM EST documented as of this encounter Care Teams Clinical Research Technician Relationship Specialty Start Date End Date Nahomy Davies MD [address] [place] [phone] PCP - General Internal Medicine [facility]/13[facility]23 [facility] documented as of this encounter
--- OUTSIDE RECORDS SUMMARY | 2024-12-27 13:52 | XMS_ITS | Encounter Summary ---
Author Organization [employer] Address 75 [facility] 7 [place] [address] Care Team Providers Care Grey Inspector Name Role Phone Nahomy Davies MD Primary Care Pro vider Reason for Visit * Reason Comments Med Refill Encounter Details Date Type Department Care Team ([facility] st Contact Info) Description 11/27/2024 Refill [facility] [address] [place] [address] Nahomy Davies MD 230 [place] [address] Shortness of breath; Type 2 diabetes mellitus without complication, without long-term current use of insulin ([facility]) Social History Tobacco Use Types [...] Description 01/18/2025 9:15 AM EDT Office Visit [facility] [address] [place] [phone] Karrie Carlisle MD [address] [place] [phone] documented as of this encounter Visit Diagnoses Diagnosis Shortness of breath Type 2 diabetes mellitus without complication, without long-term current use of insulin ([facility]) documented in this encounter Additional Health Concerns Assessment Noted Time PHQ-9 Depression Total Score: 0 09/27/19 2:19 PM EDT documented as of this encounter Care Teams Grey Inspector Relationship Specialty Start Date End Date Nahomy Davies MD [address] [place] [phone] PCP - General Internal Medicine 01/13/23 [facility] documented as of this encounter
--- OUTSIDE RECORDS SUMMARY | 2024-12-27 13:52 | XMS_ITS | Encounter Summary ---
Author Organization [employer] Address 75 [facility] 7t [place] [address] Care Team Providers Care Java Systems Analyst Name Role Phone Nahomy Davies MD Primary Care Pro vider Reason for Visit * Reason Comments Med Refill Encounter Details Date Type Department Care Team ([facility] st Contact Info) Description 08/07/[address] [facility]S [address] [place], [place] [phone] Irene Mei MD [address] [place] [address] Social History Tobacco Use Types Packs/Day Years [...] Upcoming Encounters Date Type Department Care Team ([facility] st Contact Info) Description 01/18/2025 9:15 AM EDT Office Visit [facility] MEDICINE [address] [place] [phone] Karrie Carlisle MD [address] [place] [phone] documented as of this encounter Visit Diagnoses Not on filedocumented in this encounter Additional Health Concerns Assessment Noted Time PHQ-9 Depression Total Score: 0 04/23/19 23 9:18 AM EST documented as of this encounter Care Teams Java Systems Analyst Relationship Specialty Start Date End Date Nahomy Davies MD [address] [place] [phone] PCP - General Internal Medicine 01/13[facility]23 [facility] documented as of this encounter
--- OUTSIDE RECORDS SUMMARY | 2024-12-27 13:52 | XMS_ITS | Encounter Summary ---
Author Organization [employer] Address 75 [facility] 7t [place] [address] Care Team Providers Care Supervisor Shipfitters Name Role Phone Nahomy Davies MD Primary Care Pro vider Reason for Visit * Reason Comments Med Refill Encounter Details Date Type Department Care Team ([facility] st Contact Info) Description 03/21/2024 Refill [facility] [address] [place], [place] [phone] Nahomy Davies MD [address] [place], [place] [phone] Type 2 diabetes mellitus without complication, without long-term current use of insulin (CMS/HCC); Type 2 diabetes mellitus without complication, unspecified whether predatory animal exterminator insulin use (CMS/HCC); Iron deficiency anemia, unspecified [...] Visit [facility] [address] [place] [phone] Karrie Carlisle MD [address] [place] [phone] documented as of this encounter Visit Diagnoses Diagnosis Type 2 diabetes mellitus without complication, unspecified whether intermediate insulin use ([facility]) Iron deficiency anemia, unspecified iron deficiency anemia type Acquired hypothyroidism Unspecified hypothyroidism Sleep disturbance Unspecified sleep disturbance Osteopenia determined by x-ray documented in this encounter Additional Health Concerns Assessment Noted Time PHQ-9 Depression Total Score: 0 04/23/19 23 9:18 AM EST documented as of this encounter Care Teams Supervisor Shipfitters Relationship Specialty Start Date End Date Nahomy Davies MD [address] [place] [phone] PCP - General Internal Medicine 01/13/23 [facility] documented as of this encounter
--- OUTSIDE RECORDS SUMMARY | 2024-12-27 13:52 | XMS_ITS | Encounter Summary ---
Author Organization [employer] Address 75 [facility] 7t [place] [address] Care Team Providers Care Biology Specialist Name Role Phone Nahomy Davies MD Primary Care Pro vider Reason for Visit * Reason Comments Med Refill Encounter Details Date Type Department Care Team ([facility] st Contact Info) Description 02/23/[address] [facility] [address] [place] [address] Nahomy Davies MD [address] [place], [place] [phone] Essential hypertension; Type 2 diabetes mellitus without complication, without long-term current use of insulin ([facility]) Social History [...] AM EDT Office Visit [facility] [address] [place] [phone] Karrie Carlisle MD [address] [place] [phone] documented as of this encounter Visit Diagnoses Diagnosis Essential hypertension Unspecified essential hypertension Type 2 diabetes mellitus without complication, without long-term current use of insulin ([facility]) documented in this encounter Additional Health Concerns Assessment Noted Time PHQ-9 Depression Total Score: 0 04/23/19 23 9:18 AM EST documented as of this encounter Care Teams Biology Specialist Relationship Specialty Start Date End Date Nahomy Davies MD [address] [place] [phone] PCP - General Internal Medicine 01/13/23 [facility] 11/17/24 documented as of this encounter
--- OUTSIDE RECORDS SUMMARY | 2024-12-27 13:52 | XMS_ITS | Encounter Summary ---
Author Organization [employer] Address 75 [facility] 7t [place] [address] Care Team Providers Care Contracting Specialist Name Role Phone Nahomy Davies MD Primary Care Pro vider Reason for Visit * Reason Comments Med Refill Encounter Details Date Type Department Care Team ([facility] st Contact Info) Description 02/23/2024 Refill [facility] MEDICINE 230 [place], [place] [phone] Irene Mei MD 230 [place], [place] [phone] Type 2 diabetes mellitus with other specified complication, with long-term current use of insulin ([facility]); Shortness of breath Social History Tobacco Use [...] Description 01/18/2025 9:15 AM EDT Office Visit [facility] MED[facility]INE [address] [place] [phone] Karrie Carlisle MD [address] [place] [phone] documented as of this encounter Visit Diagnoses Diagnosis Type 2 diabetes mellitus with other specified complication, with long-term current use of insulin ([facility]) Shortness of breath documented in this encounter Additional Health Concerns Assessment Noted Time PHQ-9 Depression Total Score: 0 04/23/19 23 9:18 AM EST documented as of this encounter Care Teams Contracting Specialist Relationship Specialty Start Date End Date Nahomy Davies MD [address] [place] [phone] PCP - General Internal Medicine 01/13/23 [facility] 11/17/24 documented as of this encounter
--- OUTSIDE RECORDS SUMMARY | 2024-12-27 13:52 | XMS_ITS | Encounter Summary ---
Author Organization [employer] Address 75 [facility] 7t [place] [address] Care Team Providers Care Sweatband Maker Name Role Phone Nahomy Davies MD Primary Care Pro vider Reason for Visit * Reason Comments Med Refill Encounter Details Date Type Department Care Team ([facility] st Contact Info) Description 02/27/2024 Refill [facility] MEDICINE 230 [place], [place] [phone] Irene Mei MD 230 [place], [place] [phone] Shortness of breath; Type 2 diabetes mellitus with other specified complication, with long-term current use of insulin ([facility]) Social History Tobacco Use [...] 01/18/2025 9:15 AM EDT Office Visit [facility] MEDICINE [address] [place] [phone] Karrie Carlisle MD [address] [place] [address] 32[address] documented as of this encounter Visit Diagnoses Diagnosis Shortness of breath Type 2 diabetes mellitus with other specified complication, with long-term current use of insulin ([facility]) documented in this encounter Additional Health Concerns Assessment Noted Time PHQ-9 Depression Total Score: 0 04/23/19 23 9:18 AM EST documented as of this encounter Care Teams Sweatband Maker Relationship Specialty Start Date End Date Nahomy Davies MD [address] [place] [phone] PCP - General Internal Medicine 01/13/23 [facility] 11/17/24 documented as of this encounter
--- OUTSIDE RECORDS SUMMARY | 2024-12-27 13:52 | XMS_ITS | Encounter Summary ---
Author Organization [email or web address] Address 75 [facility] 7t [place] [address] Care Team Providers Care Dog Warden Name Role Phone Nahomy Davies MD Primary Care Pro vider Reason for Visit * Reason Comments Med Refill Encounter Details Date Type Department Care Team ([facility] st Contact Info) Description 07/10/2024 Refill [facility] MED & PEDS [address] [place], [place] [phone] Irene Mei MD 230 [place], [place] [phone] Type 2 diabetes mellitus without complication, without long-term current use of insulin ([facility]) Social History Tobacco Use Types Packs/Day [...] 01/18/2025 9:15 AM EDT Office Visit [facility] MEDICINE [address] [place] [address] Karrie Carlisle MD [address] [place] [phone] documented as of this encounter Visit Diagnoses Diagnosis Type 2 diabetes mellitus without complication, without long-term current use of insulin ([facility]) documented in this encounter Additional Health Concerns Assessment Noted Time PHQ-9 Depression Total Score: 0 04/23/19 23 9:18 AM EST documented as of this encounter Care Teams Dog Warden Relationship Specialty Start Date End Date Nahomy Davies MD [address] [place] [address] [phone] PCP - General Internal Medicine 01/13/23 [facility] documented as of this encounter
--- OUTSIDE RECORDS SUMMARY | 2024-12-27 13:52 | XMS_ITS | Encounter Summary ---
Author Organization [employer] Address 75 [facility] 7t [place] [address] Care Team Providers Care Cone Operator Name Role Phone Nahomy Davies MD Primary Care Pro vider Reason for Visit * Reason Comments Med Refill Encounter Details Date Type Department Care Team ([facility] st Contact Info) Description 04/20/[address] [facility] CH[facility] MED & PEDS [address] [place], [place] [phone] Nahomy Davies MD 230 [place], [place] [phone] Mixed hyperlipidemia Social History Tobacco Use Types [...] Upcoming Encounters Date Type Department Care Team ([facility] st Contact Info) Description 01/18/2025 9:15 AM EDT Office Visit [facility] MEDICINE [address] [place] [address] Karrie Carlisle MD [address] [place] [phone] documented as of this encounter Visit Diagnoses Diagnosis Mixed hyperlipidemia documented in this encounter Additional Health Concerns Assessment Noted Time PHQ-9 Depression Total Score: 0 04/23/19 23 9:18 AM EST documented as of this encounter Care Teams Cone Operator Relationship Specialty Start Date End Date Nahomy Davies MD [address] [place] [phone] PCP - General Internal Medicine 01/13/23 [facility] 11/17/24 documented as of this encounter
--- OUTSIDE RECORDS SUMMARY | 2024-12-27 13:52 | XMS_ITS | Encounter Summary ---
Author Organization [employer] Address [address] [place] [address] [place] [address] Care Team Providers Care Dairy Products Maker Name Role Phone Nancy Larose [facility] Primary Care Provider Nahomy Wilkins MD Primary Care Pro vider Encounter Details Date Type Department Care Team (Late st Contact Info) Description 03/30/2022 Orders Only [facility] [address] [place] [address] Kary Lux LPN Social History Tobacco Use [...] Description 01/18/2025 9:15 AM EDT Office [facility] [address] [place] [address] Karrie Carlisle MD 230 [place] [address] documented as of this encounter Visit Diagnoses Not on filedocumented in this encounter Care Teams Dairy Products Maker Relationship Specialty Start Date End Date Nancy Larose FNP PCP - General Family Medicine 12/08/21 01/12/23 Nahomy Davies MD 230 [place] [address] PCP - General Internal Medicine 01/13/23 N[facility]AN 11/17/24 documented as of this encounter
--- OUTSIDE RECORDS SUMMARY | 2024-12-27 13:52 | XMS_ITS | Encounter Summary ---
Author Organization [employer] Address 75 [facility] 7t [place] [address] Care Team Providers Care Rectification Printer Name Role Phone Nahomy Davies MD Primary Care Pro vider Reason for Visit * Reason Comments Med Refill Encounter Details Date Type Department Care Team ([facility] st Contact Info) Description 07/10/2024 Refill [facility] PEDS [address] [place], [place] [phone] Suyapa Doyle MD 230 [place], [place] [phone] Acquired hypothyroidism; Osteopenia determined by x-ray; Sleep [...] Description 01/18/2025 9:15 AM EDT Office Visit [facility] MEDICINE [address] [place] [address] Karrie Carlisle MD [address] [place] [address] documented as of this encounter Visit Diagnoses Diagnosis Acquired hypothyroidism Unspecified hypothyroidism Osteopenia determined by x-ray Sleep disturbance Unspecified sleep disturbance Iron deficiency anemia, unspecified iron deficiency anemia type documented in this encounter Additional Health Concerns Assessment Noted Time PHQ-9 Depression Total Score: 0 04/23/19 23 9:18 AM EST documented as of this encounter Care Teams Rectification Printer Relationship Specialty Start Date End Date Nahomy Davies MD [address] [place] [phone] PCP - General Internal Medicine 01/13/23 [facility] 11/17/24 documented as of this encounter
--- OUTSIDE RECORDS SUMMARY | 2024-12-27 13:53 | XMS_ITS | Encounter Summary ---
Author Organization [facility] Address 75 [facility] 7t [place] [address] Care Team Providers Care B2B Appointment Setter Name Role Phone Nahomy Davies MD Primary Care Pro vider Reason for Visit * Reason Comments Med Refill Encounter Details Date Type Department Care Team ([facility] st Contact Info) Description 10/31/2024 Refill [facility] MEDICINE 230 [place], [place] [phone] Sabrina Gonzalez NP 230 [place] [address] Social History Tobacco Use Types Packs/Day Years [...] 01/18/2025 9:15 AM EDT Office Visit [facility] MEDICINE [address] [place] [address] Karrie Carlisle MD [address] [place] [address] documented as of this encounter Visit Diagnoses Not on filedocumented in this encounter Additional Health Concerns Assessment Noted Time PHQ-9 Depression Total Score: 0 09/27/19 2:19 PM EDT documented as of this encounter Care Teams B2B Appointment Setter Relationship Specialty Start Date End Date Nahomy Davies MD [address] [place] [phone] PCP - General Internal Medicine 01/13/23 [facility] documented as of this encounter
--- OUTSIDE RECORDS SUMMARY | 2024-12-27 13:53 | XMS_ITS | Encounter Summary ---
Author Organization [employer] Address 75 [facility] 7t [place] [address] Care Team Providers Care Manager Intelligence Name Role Phone Nahomy Davies MD Primary Care Pro vider Reason for Visit * Reason Comments Med Refill Encounter Details Date Type Department Care Team ([facility] st Contact Info) Description 07/04/2023 Refill [facility] MEDICINE 230 [place] [address] Nahomy Davies MD 230 [place] [address] Social History Tobacco Use Types Packs/Day Years [...] Description 01/18/2025 9:15 AM EDT Office Visit [facility] MEDICINE [address] [place] [address] 72071 Karrie Carlisle MD [address] [place] [phone] documented as of this encounter Visit Diagnoses Not on filedocumented in this encounter Additional Health Concerns Assessment Noted Time PHQ-9 Depression Total Score: 0 04/23/19 23 9:18 AM EST documented as of this encounter Care Teams Manager Intelligence Relationship Specialty Start Date End Date Nahomy Davies MD [address] [place] [address] [phone] PCP - General Internal Medicine 01/13/23 [facility] 11/[facility] documented as of this encounter
--- OUTSIDE RECORDS SUMMARY | 2024-12-27 13:53 | XMS_ITS | Encounter Summary ---
Author Organization [employer] Address 75 [facility] 7t [place] [address] Care Team Providers Care Radiation Protection Technician Name Role Phone Nahomy Davies MD Primary Care Pro vider Reason for Visit * Reason Onset Date Comments Medication Question 03/25/2023 Encounter Details Date Type Department Care Team ([facility] Contact Info) Description 03/25/2023 Telephone [facility] MEDICINE 230 [place] [address] Nahomy Davies MD 230 [place] [address] Medication Question Social History Tobacco Use Types [...] for FreeStyle lancets with clarifications on directions. [phone] ext [phone] documented in this encounter Plan of Treatment Upcoming Encounters Date Type Department Care Team (Late st Contact Info) Description 01/18/2025 9:15 AM EDT Office Visit [facility] MEDICINE [address] [place] [address] Karrie Carlisle MD [address] [place] [address] documented as of this encounter Visit Diagnoses Not on filedocumented in this encounter Additional Health Concerns Assessment Noted Time PHQ-9 Depression Total Score: 0 04/23/19 9:18 AM EST documented as of this encounter Care Teams Radiation Protection Technician Relationship Specialty Start Date End Date Nahomy Davies MD 230 [place] [address] PCP - General Internal Medicine 01/13/23 [facility] documented as of this encounter
--- OUTSIDE RECORDS SUMMARY | 2024-12-27 13:53 | XMS_ITS | Encounter Summary ---
Author Organization [employer] Address 75 [facility] 7t [place] [address] Care Team Providers Care Recreational Therapist Name Role Phone Nahomy Davies MD Primary Care Pro vider Reason for Visit * Reason Comments Med Refill Encounter Details Date Type Department Care Team ([facility] st Contact Info) Description 01/31/2023 Refill [facility] MEDICINE 230 [place] [address] Nancy Larose FNP Social History Tobacco Use [...] Description 01/18/2025 9:15 AM EDT Office Visit [facility] MEDICINE [address] [place] [phone] Karrie Carlisle MD [address] [place] [phone] documented as of this encounter Visit Diagnoses Not on filedocumented in this encounter Additional Health Concerns Assessment Noted Time PHQ-9 Depression Total Score: 0 04/23/19 23 9:18 AM EST documented as of this encounter Care Teams Recreational Therapist Relationship Specialty Start Date End Date Nahomy Davies MD [address] [place] [phone] PCP - General Internal Medicine 01/13/23 [facility] 11/17/24 documented as of this encounter
--- OUTSIDE RECORDS SUMMARY | 2024-12-27 13:53 | XMS_ITS | Encounter Summary ---
Author Organization [employer] Address 75 [facility] 7t [place] [address] Care Team Providers Care Tech Brazer Tester Name Role Phone Nahomy Davies MD Primary Care Pro vider Reason for Visit * Reason Comments Med Refill Encounter Details Date Type Department Care Team ([facility] st Contact Info) Description 07/23/[address] [facility] CHC MED & PEDS [address] [place], [place] [phone] Suyapa Doyle MD 230 [place] [address] Shortness of breath Social History Tobacco Use [...] [facility] MEDICINE [address] [place] [address] Karrie Carlisle MD [address] [place] [address] [phone] documented as of this encounter Visit Diagnoses Diagnosis Shortness of breath documented in this encounter Additional Health Concerns Assessment Noted Time PHQ-9 Depression Total Score: 0 04/23/19 23 9:18 AM EST documented as of this encounter Care Teams Tech Brazer Tester Relationship Specialty Start Date End Date Nahomy Davies MD [address] [place] [address] [phone] PCP - General Internal Medicine 01/13/23 [facility] 11/17/24 documented as of this encounter
--- OUTSIDE RECORDS SUMMARY | 2024-12-27 13:53 | XMS_ITS | Encounter Summary ---
Author Organization [employer] Address 75 [facility] 7t [place] [address] Care Team Providers Care Filter Screen Cleaner Name Role Phone Nahomy Davies MD Primary Care Pro vider Reason for Visit * Reason Comments Med Refill Encounter Details Date Type Department Care Team ([facility] st Contact Info) Description 10/22/[address] [facility] MEDICINE 230 [place] [address] Nahomy Davies MD 230 [place] [address] Cobalamin deficiency Social History Tobacco Use Types [...] Description 01/18/2025 9:15 AM EDT Office Visit [facility] MEDICINE [address] [place] [address] Karrie Carlisle MD [address] [place] [address] 23384 documented as of this encounter Visit Diagnoses Diagnosis Cobalamin deficiency Other B-complex deficiencies documented in this encounter Additional Health Concerns Assessment Noted Time PHQ-9 Depression Total Score: 0 09/27/19 2:19 PM EDT documented as of this encounter Care Teams Filter Screen Cleaner Relationship Specialty Start Date End Date Nahomy Davies MD [address] [place] [phone] PCP - General Internal Medicine 01/13/23 [facility] documented as of this encounter
--- OUTSIDE RECORDS SUMMARY | 2024-12-27 13:53 | XMS_ITS | Encounter Summary ---
Author Organization [employer] Address 75 [facility] 7t [place] [address] Care Team Providers Care Rn Mds Name Role Phone Nahomy Davies MD Primary Care Pro vider Reason for Visit * Reason Comments Med Refill Encounter Details Date Type Department Care Team ([facility] st Contact Info) Description 06/13/2023 Refill [facility] MEDICINE 230 [place] [address] Nahomy Davies MD 230 [place] [address] Social History Tobacco Use Types Packs/Day Years [...] Description 01/18/2025 9:15 AM EDT Office Visit [facility] MEDICINE [address] [place] [address] Karrie Carlisle MD [address] [place] [address] 160[address] documented as of this encounter Visit Diagnoses Not on filedocumented in this encounter Additional Health Concerns Assessment Noted Time PHQ-9 Depression Total Score: 0 04/23/19 23 9:18 AM EST documented as of this encounter Care Teams Rn Mds Relationship Specialty Start Date End Date Nahomy Davies MD [address] [place] [address] [phone] PCP - General Internal Medicine 01/13/23 [facility] documented as of this encounter
--- OUTSIDE RECORDS SUMMARY | 2024-12-27 13:53 | XMS_ITS | Encounter Summary ---
Author Organization [employer] Address 75 [facility] 7t [place] [address] Care Team Providers Care Crude Unit Operator Name Role Phone Nahomy Davies MD Primary Care Pro vider Encounter Details Date Type Department Care Team ([facility] st Contact Info) Description 10/19/2024 Orders Only [facility] 230 [place] [address] Nahomy Davies MD 230 [place] [address] Social History Tobacco Use Types Packs/Day Years [...] EDT Office Visit [facility] MED[facility] [address] [place] [address] Karrie Carlisle MD [address] [place] [address] 65[address] documented as of this encounter Visit Diagnoses Not on filedocumented in this encounter Additional Health Concerns Assessment Noted Time PHQ-9 Depression Total Score: 0 09/27/19 2:19 PM EDT documented as of this encounter Care Teams Crude Unit Operator Relationship Specialty Start Date End Date Nahomy Davies MD [address] [place] [phone] PCP - General Internal Medicine 01/13[facility]23 [facility] documented as of this encounter
--- OUTSIDE RECORDS SUMMARY | 2024-12-27 13:53 | XMS_ITS | Encounter Summary ---
Author Organization [employer] Address 75 [facility] 7t [place] [address] Care Team Providers Care Shade Hanger Name Role Phone Nahomy Davies MD Primary Care Pro vider Reason for Visit * Reason Comments Med Refill Encounter Details Date Type Department Care Team ([facility] st Contact Info) Description 06/23/2023 Refill [facility] MEDICINE 230 [place] [address] Nahomy Davies MD 230 [place] [address] Social History Tobacco Use Types Packs/Day Years Used Date Smoking Tobacco: Never Passive Smoke Exposure: Never Smokeless Tobacco: Never Alcohol Use Standard Drinks/Week Comments Never 0 (1 standard drink = 0.6 oz pur e alcohol) Depression Answer Date Recorded Patient Health Questionnaire-9 Score 0 04/23/2022 Housing Stability Answer Date Recorded What is your housing situation today? I have chiraaraji bello 01/24/[address] you [...] Description 01/18/2025 9:15 AM EDT Office Visit [facility] MEDICINE [address] [place] [phone] Karrie Carlisle MD [address] [place] [phone] documented as of this encounter Visit Diagnoses Not on filedocumented in this encounter Additional Health Concerns Assessment Noted Time PHQ-9 Depression Total Score: 0 04/23/19 23 9:18 AM EST documented as of this encounter Care Teams Shade Hanger Relationship Specialty Start Date End Date Nahomy Davies MD [address] [place] [address] [phone] PCP - General Internal Medicine 01/13[facility]23 [facility] documented as of this encounter
--- OUTSIDE RECORDS SUMMARY | 2024-12-27 13:53 | XMS_ITS | Encounter Summary ---
Author Organization [employer] Address 75 [facility] 7t [place] [address] Care Team Providers Care Hand Outside Cutter Name Role Phone Nahomy Davies MD Primary Care Pro vider Reason for Visit * Reason Comments Med Refill Encounter Details Date Type Department Care Team ([facility] st Contact Info) Description 06/06/2023 Refill [facility] MEDICINE 230 [place] [address] Nahomy Davies MD 230 [place] [address] Social History Tobacco Use Types Packs/Day Years [...] Description 01/18/2025 9:15 AM EDT Office Visit [facility] MEDICINE [address] [place] [address] Karrie Carlisle MD [address] [place] [address] [phone] documented as of this encounter Visit Diagnoses Not on filedocumented in this encounter Additional Health Concerns Assessment Noted Time PHQ-9 Depression Total Score: 0 04/23/19 23 9:18 AM EST documented as of this encounter Care Teams Hand Outside Cutter Relationship Specialty Start Date End Date Nahomy Davies MD [address] [place] [address] [phone] PCP - General Internal Medicine 01/13/23 [facility] documented as of this encounter
--- OUTSIDE RECORDS SUMMARY | 2024-12-27 13:53 | XMS_ITS | Encounter Summary ---
Author Organization [employer] Address 75 [facility] 7t [place] [address] Care Team Providers Care Spiritual Advisor Name Role Phone Nahomy Davies MD Primary Care Pro vider Reason for Visit * Reason Comments Med Refill Encounter Details Date Type Department Care Team ([facility] st Contact Info) Description 06/29/2023 Refill [facility] MEDICINE 230 [place] [address] Nahomy Davies MD 230 [place] [address] Social History Tobacco Use Types Packs/Day Years [...] 01/18/2025 9:15 AM EDT Office Visit [facility] MEDICINE [address] [place] [phone] Karrie Carlisle MD [address] [place] [phone] documented as of this encounter Visit Diagnoses Not on filedocumented in this encounter Additional Health Concerns Assessment Noted Time PHQ-9 Depression Total Score: 0 04/23/19 23 9:18 AM EST documented as of this encounter Care Teams Spiritual Advisor Relationship Specialty Start Date End Date Nahomy Davies MD [address] [place] [address] [phone] PCP - General Internal Medicine 01/13/23 [facility] documented as of this encounter
--- OUTSIDE RECORDS SUMMARY | 2024-12-27 13:53 | XMS_ITS | Encounter Summary ---
Author Organization [employer] Address [address] [facility] 7t [place] [address] Care Team Providers Care Sailmaker Name Role Phone Nahomy Davies MD Primary Care Pro vider Reason for Visit * Reason Comments Med Refill Encounter Details Date Type Department Care Team ([facility] st Contact Info) Description 06/20/2023 Refill [facility] [address] [place] [address] Nahomy Davies MD [address] [place] [address] Social History Tobacco Use Types Packs/Day Years [...] Description 01/18/2025 9:15 AM EDT Office Visit [facility] [address] [place] [address] Karrie Carlisle MD [address] [place] [address] documented as of this encounter Visit Diagnoses Not on filedocumented in this encounter Additional Health Concerns Assessment Noted Time PHQ-9 Depression Total Score: 0 04/23/19 23 9:18 AM EST documented as of this encounter Care Teams Sailmaker Relationship Specialty Start Date End Date Nahomy Davies MD [address] [place] [address] [phone] PCP - General Internal Medicine [facility] documented as of this encounter
--- OUTSIDE RECORDS SUMMARY | 2024-12-27 13:53 | XMS_ITS | Encounter Summary ---
Author Organization [employer] Address 75 [facility] 7t [place] [address] Care Team Providers Care Credit Risk Review Officer Name Role Phone Nahomy Davies MD Primary Care Pro vider Reason for Visit * Reason Comments Med Refill Encounter Details Date Type Department Care Team ([facility] st Contact Info) Description 07/23/2023 Refill [facility] MED[facility]INE [address] [place] [address] Nahomy Davies MD 230 [place] [address] Iron deficiency anemia, unspecified iron deficiency anemia type; Type 2 diabetes mellitus without complication, without long-term current use of insulin ([facility]) Social History [...] 9:15 AM EDT Office Visit [facility] MEDICINE [address] [place] [phone] Karrie Carlisle MD [address] [place] [phone] documented as of this encounter Visit Diagnoses Diagnosis Iron deficiency anemia, unspecified iron deficiency anemia type Type 2 diabetes mellitus without complication, without long-term current use of insulin ([facility]) documented in this encounter Additional Health Concerns Assessment Noted Time PHQ-9 Depression Total Score: 0 04/23/19 23 9:18 AM EST documented as of this encounter Care Teams Credit Risk Review Officer Relationship Specialty Start Date End Date Nahomy Davies MD [address] [place] [phone] PCP - General Internal Medicine 01/13/23 [facility] 11/17/24 documented as of this encounter
--- OUTSIDE RECORDS SUMMARY | 2024-12-27 13:53 | XMS_ITS | Encounter Summary ---
Author Organization [employer] Address 75 [facility] 7t [place] [address] Care Team Providers Care Medical Care Manager Name Role Phone Nahomy Davies MD Primary Care Pro vider Reason for Visit * Reason Comments Med Refill Encounter Details Date Type Department Care Team ([facility] st Contact Info) Description 10/31/2024 Refill [facility] [address] [place], [place] [phone] Nahomy Davies MD [address] [place], [place] [phone] Type 2 diabetes mellitus without complication, without long-term current use of insulin ([facility]) Social History Tobacco Use [...] 9:15 AM EDT Office Visit [facility] [address] [place] [phone] Karrie Carlisle MD 230 [place] [address] documented as of this encounter Visit Diagnoses Diagnosis Type 2 diabetes mellitus without complication, without long-term current use of insulin ([facility]) documented in this encounter Additional Health Concerns Assessment Noted Time PHQ-9 Depression Total Score: 0 09/27/19 25 2:19 PM EDT documented as of this encounter Care Teams Medical Care Manager Relationship Specialty Start Date End Date Nahomy Davies MD [address] [place] [address] PCP - General Internal Medicine 01/13[facility]23 [facility] documented as of this encounter
--- OUTSIDE RECORDS SUMMARY | 2024-12-27 13:53 | XMS_ITS | Encounter Summary ---
Author Organization [employer] Address 75 [facility] 7 [place] [address] Care Team Providers Care Insurance Investigator Name Role Phone Nahomy Davies MD Primary Care Pro vider Reason for Visit * Reason Comments Med Refill Encounter Details Date Type Department Care Team ([facility] st Contact Info) Description 12/26/[address] [facility] MEDICINE [address] [place] [address] Nahomy Davies MD [address] [place] [address] Iron deficiency anemia, unspecified iron deficiency anemia [...] AM EDT Office Visit [facility] MEDICINE [address] [place] [address] Karrie Carlisle MD [address] [place] [phone] documented as of this encounter Visit Diagnoses Diagnosis Iron deficiency anemia, unspecified iron deficiency anemia type documented in this encounter Additional Health Concerns Assessment Noted Time PHQ-9 Depression Total Score: 0 09/27/19 2:19 PM EDT documented as of this encounter Care Teams Insurance Investigator Relationship Specialty Start Date End Date Nahomy Davies MD [address] [place] [phone] PCP - General Internal Medicine 01/13/23 [facility] documented as of this encounter
--- OUTSIDE RECORDS SUMMARY | 2024-12-27 13:53 | XMS_ITS | Encounter Summary ---
Author Organization [employer] Address 75 [facility] 7t [place] [address] Care Team Providers Care Premix Concrete Batcher Name Role Phone Nahomy Davies MD Primary Care Pro vider Reason for Visit * Reason Comments Med Refill Encounter Details Date Type Department Care Team ([facility] st Contact Info) Description 06/05/2023 Refill [facility] MED[facility]INE [address] [place] [address] Nahomy Davies MD 230 [place] [address] Social History Tobacco Use Types Packs/Day Years [...] Description 01/18/2025 9:15 AM EDT Office Visit [facility] [address] [place] [address] Karrie Carlisle MD [address] [place] [phone] documented as of this encounter Visit Diagnoses Not on filedocumented in this encounter Additional Health Concerns Assessment Noted Time PHQ-9 Depression Total Score: 0 04/23/19 23 9:18 AM EST documented as of this encounter Care Teams Premix Concrete Batcher Relationship Specialty Start Date End Date Nahomy Davies MD [address] [place] [address] [phone] PCP - General Internal Medicine 01/13[facility]23 [facility] documented as of this encounter
== END 2024-12-27 12:15 | disposition home or self-care (01) ==
LOC: HO.PMCPRC 11:30
PROVIDERS: PCP Student in an Organized Health Care Education/Training Program; Visit Provider Internal Medicine
DX: M53.3 Sacrococcygeal disorders, not elsewhere classified (principal)
CPT/HCPCS: 27096

== ENCOUNTER 2025-01-14 08:12 | Outpatient (REF) | payer OTHER, SELFPAY ==
[2025-01-14 11:53] LABS: Alanine Aminotransferase 14 U/L (0-31); Albumin Level 3.6 g/dL (3.5-5.0); Alkaline Phosphatase 98 U/L (39-117); Anion Gap 9 (12-20); Aspartate Amino Transferase 32 U/L (5-31); Blood Urea Nitrogen 8 mg/dL (9-16); Calcium 9.0 mg/dL (8.4-10.2); Carbon Dioxide 29 mmol/L (22-29); Chloride 109 mmol/L (96-108); Cholesterol 217 mg/dL (<200); Estimated Glomerular Filt Rate > 60; HDL Cholesterol 39 mg/dL (>40); Potassium 4.1 mmol/L (3.3-5.1); Sodium 143 mmol/L (135-145); Total Protein 6.5 g/dL (6.5-8.0); Triglycerides 169 mg/dL (<150)
== END 2025-01-14 08:13 | disposition home or self-care (01) ==
LOC: HO.HHCL 08:12
PROVIDERS: PCP Student in an Organized Health Care Education/Training Program; Referring Provider Nurse Practitioner Family; Visit Provider Student in an Organized Health Care Education/Training Program
DX: E11.69 Type 2 diabetes mellitus with other specified complication (principal); Z79.4 Long term (current) use of insulin; E78.5 Hyperlipidemia, unspecified; R20.0 Anesthesia of skin
CPT/HCPCS: 36415; 80053; 80061; 86140

== ENCOUNTER 2025-01-24 11:00 | Outpatient (AMB) | payer OTHER, SELFPAY ==
--- NOTE | 2025-01-24 11:02 | A.OFFVIS_ITS ---
Vital Signs 01/24/25 11:06 Height 5 ft 3 in Weight 204 lb BMI 36.1 BP 184/79 H Blood Pressure Location Lt brachial Position Sitting Pulse 66 Pulse Source Pulse Oximeter Pulse Oximetry (%) 97 Oxygen Delivery Method Room Air Intake Visit Reasons: s/p right theraputic SIJ inj Intake Note: Pain today 0/10 Rope Rider Required: Yes Rope Rider Language: Edge Inker Uppers Services: Rope Rider Offered & Declined Rope Rider Name: Family Accompanied by: Other Relationship Allergies lisinopril Allergy (Intermediate, Verified 01/24/25 11:07) itching Penicillins Allergy (Intermediate, Verified 01/24/25 11:07) rash/hives black pepper Allergy (Mild, Verified 01/24/25 11:07) Unknown fluticasone (From Flonase) Allergy (Mild, Verified 01/24/25 11:07) Unknown HPI Comments Details: The patient is a 79-year-old female presenting with post-op evaluation following a right therapeutic sacroiliac joint injection on 12/27/24. Following the injection, the patient reports complete pain relief with no current pain in the right buttock area, back or leg with improved functioning, mobility, better tolerance with prolonged sitting or driving and sleep. The patient was informed that the pain relief from the injection is expected to last for two to three months, with the possibility of extending pain relief up to six months. She was advised to contact the clinic if the pain returns after this period for further management. Past procedures:? 12/27/24: Right therapeutic SIJ injection-100% ongoing pain relief 01/27/22: Left parasagittal interlaminar L4-L5 JOSHUA-60% pain relief 02/04/2021:? Interlaminar L5-S1 epidural steroid injection - 100% relief ? [facility] Medical History Tubular adenoma of colon Chronic restrictive lung disease Insomnia On beta anish at home History of COVID-19 Asthma Chronic constipation Broken arm CAD (coronary artery disease) HTN (hypertension) Hyperlipidemia Diabetes mellitus Dyspnea Dysphagia Non-toxic multinodular goiter Hypothyroidism Surgical History H/O thyroidectomy History of surgery Hx of elbow surgery History of surgery on arm Hx of cholecystectomy History of partial hysterectomy Hx of cataract surgery History of tubal ligation Hx of tonsillectomy History of carpal tunnel release Hx of colonoscopy Family History Father Throat cancer Heart disease CVD (cardiovascular disease) Mother Stomach cancer Type 2 diabetes mellitus Arthritis of knee Hypertension Social History Household Members: None Household Members Other:: self Housing: Apartment Are you a primary career placement specialist to a significant other at home: No Do you presently have visiting nurse or other home services: No Alcohol intake: never Patient Tobacco Use Status: Never used Tobacco Second Hand Smoke Exposure: No Advance Directives Date on File: 11/15/24 service: No Current occupational status: retired Current occupation: right handed Review of Systems Const All systems reviewed & are unremarkable except as noted in HPI and below Physical Exam Vital Signs: Last Vital Signs Pulse 66 01/24/25 11:06 BP 184/79 H 01/24/25 11:06 Pulse Ox 97 01/24/25 11:06 Oxygen Delivery Method Room Air 01/24/25 11:06 BMI result Body Mass Index 36.1 On exam today: Appears afebrile. Alert and oriented. Mood and affect appropriate. Follows and participates in conversation appropriately. Respiratory effort is unlabored. No cough. Able to transition from sit to stand with assistance of cane. Ambulates with bilaterally normal heel strike and toe off. Able to stand and walk on toes and heels. Back/Spine/Pelvis Cervical Spine: cervical ROM normal, cervical muscular tenderness and No Cervical spine tenderness Thoracic/Lumbar Spine: thoracic and lumbar spine normal to inspection, Lasegue's sign negative, straight leg raise negative bilaterally, pain with thoraco-lumbar ROM, paraspinal muscle tenderness, thoraco-lumbar ROM limited, No thoracic spi nal tenderness and lumbar spinal tenderness (L5-S1) Sacroiliac joints: bilaterally nontender Extrem General: Yes capillary refill normal, Yes no clubbing, cyanosis or edema and Yes no calf tenderness Results Reviewed Results Reviewed: XR LUMBOSACRAL SPINE 11/14/24 CLINICAL INFORMATION: exacerbation of right LBP with right radiculopathy. COMPARISON: None available. TECHNIQUE: Three views of the lumbosacral spine. FINDINGS: There is a minimal levoconvex scoliosis, possibly positional. There is a normal lordosis. There are no fractures, compression deformities, or suspicious bone lesions. There is mild to moderate multilevel disc degeneration present, and facet degeneration spanning L3-S1. No subluxations of significance. The sacrum and SI joints appear normal. Soft tissues demonstrate early vascular calcifications. IMPRESSION: 1. No acute bony abnormalities of the lumbar spine. 2. Mild to moderate spondylosis. XR DEXA axial skeleton 08/18/23 IMPRESSION: 1. DIAGNOSIS: Osteopenia based on the lowest T-score value of -2.0 in the femoral neck applying World Health Organization criteria. MR LUMBAR SPINE WITHOUT CONTRAST 11/03/21 CLINICAL INFORMATION: Radiculopathy, lumbar region COMPARISON: None TECHNIQUE: MRI of the lumbar spine was obtained using routine sequences without contrast. FINDINGS: The lumbar vertebral bodies maintain normal heights. There is mild anterolisthesis of L4 on L5. The disc heights are preserved. No bone marrow edema is seen. The distal spinal cord appears normal. The conus medullaris terminates normally at the T12-L1 level. Small sacral Tarlov cysts are noted. The extraspinal soft tissues are within normal limits. SPINAL LEVELS: L1-L2: Shallow right subarticular protrusion. No spinal canal or neural foraminal stenosis. L2-L3: Mild disc bulging with mild facet arthropathy and ligament flavum infolding. No spinal canal stenosis. Minimal neural foraminal stenosis. L3-L4: Disc bulging with ligamentum flavum infolding moderate facet arthropathy resulting in mild spinal canal stenosis with bilateral subarticular stenosis with abutment of both traversing L4 nerve roots. Mild bilateral neural foraminal stenosis with abutment of the exiting right L3 nerve root. L4-L5: Disc bulging with central protrusion, ligamentum flavum infolding, and moderate facet arthropathy resulting in moderate spinal canal stenosis with mild compression of both traversing L5 nerve roots. Mild right neural foraminal stenosis with abutment of the exiting right L4 nerve root. L5-S1: Mild disc bulging with moderate facet arthropathy. No spinal canal stenosis. No significant neural foraminal stenosis. IMPRESSION: At L3-L4 there is mild spinal canal stenosis and subarticular stenosis with abutment of both traversing L4 nerve roots. Mild bilateral neural foraminal stenosis with abutment of the exiting right L3 nerve root. At L4-L5 there is moderate spinal canal stenosis with mild compression of both traversing L5 nerve roots and abutment of the exiting right L4 nerve root. Assessment & Plan Assessment & Plan (1) Lumbar spondylosis: Code(s): M47.816 - Spondylosis without myelopathy or radiculopathy, lumbar region Category: Medical (2) Sacroiliac joint pain: Code(s): M53.3 - Sacrococcygeal disorders, not elsewhere classified Category: Medical Plan The plan is to monitor the patient's pain relief following the sacroiliac joint injection. The patient is advised to contact the clinic if the pain returns after two to three months for further evaluation and potential repeat injection. The goal is to extend the pain relief duration to six months if possible. Patient reports improved mobility, daily functioning, sitting/driving and sleep following the injection. She denies any radicular or back pain since the injection. All questions and concerns have been answered and patient agreed with the treatment plan. Follow up as needed. Patient was informed and verbally consented to the use of an ambient scribe for clinic note documentation during this visit. Coding Level of Care Code Est Pt Level 3 (80018) Diagnoses Lumbar spondylosis M47.816 Sacroiliac joint pain M53.3
[2025-01-24 11:06] VITALS: BP 184/79; PULSE 66; O2SAT 97; BMI 36.1
--- OUTSIDE RECORDS SUMMARY | 2025-01-24 13:59 | XMS_ITS | Encounter Summary ---
Author Organization [employer] Address 75 [facility] 7t [place] [address] Care Team Providers Care Video Technician Name Role Phone Nahomy Davies MD Primary Care Pro vider Reason for Visit * Reason Comments Med Refill Encounter Details Date Type Department Care Team ([facility] st Contact Info) Description 11/11/2023 Refill [facility]INE [address] [place] [address] Nahomy Davies MD 230 [place] [address] Type 2 diabetes mellitus without complication, without long-term current use of insulin ([facility]) Social History Tobacco Use [...] Care Team (Late st Contact Info) Description 03/26/2025 9:15 AM EST Office Visit [facility] [address] [place] [address] Nahomy Davies MD [address] [place] [address] documented as of this encounter Visit Diagnoses Diagnosis Type 2 diabetes mellitus without complication, without long-term current use of insulin (HCC) documented in this encounter Additional Health Concerns Assessment Noted Time PHQ-9 Depression Total Score: 0 04/23/19 23 9:18 AM EST documented as of this encounter Care Teams Video Technician Relationship Specialty Start Date End Date Nahomy Davies MD [address] [place] [phone] PCP - General Internal Medicine 01/13/23 [facility] 11/17/24 documented as of this encounter
--- OUTSIDE RECORDS SUMMARY | 2025-01-24 13:59 | XMS_ITS | Encounter Summary ---
Author Organization [employer] Address 75 [facility] 7t [place] [address] Care Team Providers Care Autism Tutor Name Role Phone Nahomy Davies MD Primary Care Pro vider Reason for Visit * Reason Comments Med Refill Encounter Details Date Type Department Care Team ([facility] st Contact Info) Description 11/08/2023 Refill [facility]INE [address] [place] [address] Nahomy Davies MD 230 [place] [address] Type 2 diabetes mellitus without complication, without long-term current use of insulin ([facility]) Social History Tobacco Use Types Packs/Day [...] Description 03/26/2025 9:15 AM EST Office Visit [facility] MEDICINE [address] [place] [address] Nahomy Davies MD [address] [place] [address] documented as of this encounter Visit Diagnoses Diagnosis Type 2 diabetes mellitus without complication, without long-term current use of insulin (HCC) documented in this encounter Additional Health Concerns Assessment Noted Time PHQ-9 Depression Total Score: 0 04/23/19 23 9:18 AM EST documented as of this encounter Care Teams Autism Tutor Relationship Specialty Start Date End Date Nahomy Davies MD [address] [place] [phone] PCP - General Internal Medicine 01/13/23 [facility] 11/17/24 documented as of this encounter
--- OUTSIDE RECORDS SUMMARY | 2025-01-24 13:59 | XMS_ITS | Encounter Summary ---
Author Organization [employer] Address 75 [facility] 7t [place] [address] Care Team Providers Care Respiratory Care Technician Name Role Phone Nahomy Davies MD Primary Care Pro vider Reason for Visit * Reason Comments Med Refill Encounter Details Date Type Department Care Team ([facility] st Contact Info) Description 08/07/2024 Refill [facility] [address] [place], [place] [phone] Nahomy Davies MD [address] [place], [place] [phone] Type 2 diabetes mellitus without complication, without long-term current use of insulin ([facility]); Essential hypertension Social History Tobacco Use Types [...] Description 03/26/2025 9:15 AM EST Office Visit [facility] [address] [place] [address] Nahomy Davies MD [address] [place] [phone] documented as of this encounter Visit Diagnoses Diagnosis Type 2 diabetes mellitus without complication, without long-term current use of insulin (HCC) Essential hypertension Unspecified essential hypertension documented in this encounter Additional Health Concerns Assessment Noted Time PHQ-9 Depression Total Score: 0 04/23/19 23 9:18 AM EST documented as of this encounter Care Teams Respiratory Care Technician Relationship Specialty Start Date End Date Nahomy Davies MD [address] [place] [phone] PCP - General Internal Medicine [facility]/13[facility]23 [facility] documented as of this encounter
--- OUTSIDE RECORDS SUMMARY | 2025-01-24 13:59 | XMS_ITS | Encounter Summary ---
Author Organization [employer] Address 75 [facility] 7t [place] [address] Care Team Providers Care Concert Manager Name Role Phone Nahomy Davies MD Primary Care Pro vider Reason for Visit * Reason Comments Med Refill Encounter Details Date Type Department Care Team ([facility] st Contact Info) Description 11/08/2023 Refill [facility]INE [address] [place] [address] Nahomy Davies MD [address] [place] [address] Type 2 diabetes mellitus without complication, without long-term current use of insulin ([facility]) Social History Tobacco Use Types Packs/Day Years [...] Description 03/26/2025 9:15 AM EST Office Visit [facility] MEDICINE [address] [place] [address] Nahomy Davies MD [address] [place] [phone] documented as of this encounter Visit Diagnoses Diagnosis Type 2 diabetes mellitus without complication, without long-term current use of insulin (HCC) documented in this encounter Additional Health Concerns Assessment Noted Time PHQ-9 Depression Total Score: 0 04/23/19 23 9:18 AM EST documented as of this encounter Care Teams Concert Manager Relationship Specialty Start Date End Date Nahomy Davies MD [address] [place] [phone] PCP - General Internal Medicine 01/13/23 [facility] 11/17/24 documented as of this encounter
--- OUTSIDE RECORDS SUMMARY | 2025-01-24 13:59 | XMS_ITS | Encounter Summary ---
Author Organization [employer] Address 75 [facility] 7t [place] [address] Care Team Providers Care Drug Room Clerk Name Role Phone Nahomy Davies MD Primary Care Pro vider Reason for Visit * Reason Comments Med Refill Encounter Details Date Type Department Care Team ([facility] st Contact Info) Description 11/07/2023 Refill [facility]ICINE [address] [place] [address] Nahomy Davies MD [address] [place] [address] Type 2 diabetes mellitus without complication, without long-term current use of insulin ([facility]) Social History Tobacco Use Types [...] Description 03/26/2025 9:15 AM EST Office Visit [facility] MEDICINE [address] [place] [phone] Nahomy Davies MD [address] [place] [phone] documented as of this encounter Visit Diagnoses Diagnosis Type 2 diabetes mellitus without complication, without long-term current use of insulin (HCC) documented in this encounter Additional Health Concerns Assessment Noted Time PHQ-9 Depression Total Score: 0 04/23/19 23 9:18 AM EST documented as of this encounter Care Teams Drug Room Clerk Relationship Specialty Start Date End Date Nahomy Davies MD [address] [place] [phone] PCP - General Internal Medicine 01/13/23 [facility] 11/17/24 documented as of this encounter
--- OUTSIDE RECORDS SUMMARY | 2025-01-24 13:59 | XMS_ITS | Encounter Summary ---
Author Organization [employer] Address [address] [facility] 7[address] [place] [address] Care Team Providers Care Skiving Machine Operator Name Role Phone Nahomy Davies MD Primary Care Pro vider Reason for Visit * Reason Comments Med Refill Encounter Details Date Type Department Care Team ([facility] st Contact Info) Description 10/12/2023 Refill [facility] MED & PEDS [address] [place], [place] [phone] Nahomy Davies MD 230 [place] [address] Iron deficiency anemia, unspecified iron deficiency anemia [...] Description 03/26/2025 9:15 AM EST Office Visit [facility] MEDICINE [address] [place] [address] Nahomy Davies MD [address] [place] [address] documented as of this encounter Visit Diagnoses Diagnosis Iron deficiency anemia, unspecified iron deficiency anemia type documented in this encounter Additional Health Concerns Assessment Noted Time PHQ-9 Depression Total Score: 0 04/23/19 23 9:18 AM EST documented as of this encounter Care Teams Skiving Machine Operator Relationship Specialty Start Date End Date Nahomy Davies MD [address] [place] [phone] PCP - General Internal Medicine 01/13/23 Kinder A 11/17/24 documented as of this encounter
--- OUTSIDE RECORDS SUMMARY | 2025-01-24 13:59 | XMS_ITS | Encounter Summary ---
Author Organization [employer] Address [address] [facility] 7t [place] [address] Care Team Providers Care Cereal Chemist Name Role Phone Nahomy Davies MD Primary Care Pro vider Reason for Visit * Reason Comments Med Refill Encounter Details Date Type Department Care Team ([facility] st Contact Info) Description 10/18/2023 Refill [facility] MEDICINE 230 [place] [address] Nahomy Davies MD 230 [place] [address] Social History Tobacco Use Types Packs/Day Years [...] Description 03/26/2025 9:15 AM EST Office Visit [facility] MEDICINE [address] [place] [address] Nahomy Davies MD [address] [place] [address] documented as of this encounter Visit Diagnoses Not on filedocumented in this encounter Additional Health Concerns Assessment Noted Time PHQ-9 Depression Total Score: 0 04/23/19 9:18 AM EST documented as of this encounter Care Teams Cereal Chemist Relationship Specialty Start Date End Date Nahomy Davies MD [address] [place] [address] [phone] PCP - General Internal Medicine 01/13/23 Nika BLOOMA 11/17/24 documented as of this encounter
--- OUTSIDE RECORDS SUMMARY | 2025-01-24 13:59 | XMS_ITS | Encounter Summary ---
Author Organization [employer] Address [address] [facility] [address] [place] [address] Care Team Providers Care Plastic Extruding Machine Operator Name Role Phone Nahomy Davies MD Primary Care Pro vider Reason for Visit * Reason Comments Med Refill Encounter Details Date Type Department Care Team ([facility] st Contact Info) Description 10/03/2024 Refill [facility] MED & PEDS [address] [place], [place] [phone] Nahomy Davies MD 230 [place] [address] Cobalamin deficiency Social History Tobacco Use Types [...] Description 03/26/2025 9:15 AM EST Office Visit [facility] MEDICINE [address] [place] [address] Nahomy Davies MD [address] [place] [address] 7[address] documented as of this encounter Visit Diagnoses Diagnosis Cobalamin deficiency Other B-complex deficiencies documented in this encounter Additional Health Concerns Assessment Noted Time PHQ-9 Depression Total Score: 0 09/27/19 2:19 PM EDT documented as of this encounter Care Teams Plastic Extruding Machine Operator Relationship Specialty Start Date End Date Nahomy Davies MD [address] [place] [phone] PCP - General Internal Medicine 01/13/23 [facility] documented as of this encounter
--- OUTSIDE RECORDS SUMMARY | 2025-01-24 14:00 | XMS_ITS | Encounter Summary ---
Author Organization [employer] Address 75 [facility] 7t [place] [address] Care Team Providers Care Restaurant Delivery Driver Name Role Phone Nahomy Davies MD Primary Care Pro vider Reason for Visit * Reason Comments Med Refill Encounter Details Date Type Department Care Team ([facility] st Contact Info) Description 12/02/2023 Refill [facility] MED & PEDS [address] [place], [place] [phone] Nahomy Davies MD 230 [place] [address] Social History Tobacco Use Types Packs/Day Years [...] Description 03/26/2025 9:15 AM EST Office Visit [facility] MEDICINE [address] [place] [address] Nahomy Davies MD [address] [place] [address] documented as of this encounter Visit Diagnoses Not on filedocumented in this encounter Additional Health Concerns Assessment Noted Time PHQ-9 Depression Total Score: 0 04/23/19 9:18 AM EST documented as of this encounter Care Teams Restaurant Delivery Driver Relationship Specialty Start Date End Date Nahomy Davies MD [address] [place] [address] [phone] PCP - General Internal Medicine 01/13/23 [facility] documented as of this encounter
--- OUTSIDE RECORDS SUMMARY | 2025-01-24 14:00 | XMS_ITS | Encounter Summary ---
Author Organization [employer] Address [address] [facility] 7t [place] [address] Care Team Providers Care Crew Chief Name Role Phone Nahomy Davies MD Primary Care Pro vider Reason for Visit * Reason Comments Med Refill Encounter Details Date Type Department Care Team ([facility] st Contact Info) Description 03/07/2024 Refill [facility] MEDICINE 230 [place], [place] [phone] Irene Mei MD 230 [place], [place] [phone] Shortness of breath; Type 2 diabetes mellitus with other specified complication, with long-term current use of insulin ([facility]); Chronic neck pain Social History Tobacco Use [...] Description 03/26/2025 9:15 AM EST Office Visit [facility] MEDICINE [address] [place] [address] Nahomy Davies MD [address] [place] [address] 307[address] documented as of this encounter Visit Diagnoses Diagnosis Shortness of breath Type 2 diabetes mellitus with other specified complication, with long-term current use of insulin (HCC) Chronic neck pain Cervicalgia documented in this encounter Additional Health Concerns Assessment Noted Time PHQ-9 Depression Total Score: 0 04/23/19 23 9:18 AM EST documented as of this encounter Care Teams Crew Chief Relationship Specialty Start Date End Date Nahomy Davies MD [address] [place] [address] [phone] PCP - General Internal Medicine 01/13/23 Nika BLOOMA 11/17/24 documented as of this encounter
--- OUTSIDE RECORDS SUMMARY | 2025-01-24 14:00 | XMS_ITS | Encounter Summary ---
Author Organization [employer] Address 75 [facility] 7[address] [place] [address] Care Team Providers Care Running Rigger Name Role Phone Nahomy Davies MD Primary Care Pro vider Reason for Visit * Reason Comments Med Refill Encounter Details Date Type Department Care Team ([facility] st Contact Info) Description 01/30/2024 Refill [facility] MEDICINE 230 [place], [place] [phone] Nahomy Davies MD 230 [place] [address] Iron deficiency anemia, unspecified iron deficiency anemia [...] Description 03/26/2025 9:15 AM EST Office Visit [facility] MEDICINE [address] [place] [address] Nahomy Davies MD [address] [place] [address] [phone] documented as of this encounter Visit Diagnoses Diagnosis Iron deficiency anemia, unspecified iron deficiency anemia type Mixed hyperlipidemia documented in this encounter Additional Health Concerns Assessment Noted Time PHQ-9 Depression Total Score: 0 04/23/19 23 9:18 AM EST documented as of this encounter Care Teams Running Rigger Relationship Specialty Start Date End Date Nahomy Davies MD [address] [place] [phone] PCP - General Internal Medicine 01/13/23 [facility] documented as of this encounter
--- OUTSIDE RECORDS SUMMARY | 2025-01-24 14:00 | XMS_ITS | Encounter Summary ---
Author Organization [employer] Address [address] [facility] 7t [place] [address] Care Team Providers Care Sql Database Programmer Name Role Phone Nahomy Davies MD Primary Care Pro vider Reason for Visit * Reason Comments Med Refill Encounter Details Date Type Department Care Team ([facility] st Contact Info) Description 01/18/2024 Refill [facility] CHC MED & PEDS [address] [place], [place] [phone] Suyapa Doyle MD 230 [place] [address] Type 2 diabetes mellitus with other specified complication, with long-term current use of insulin ([facility]) Social History Tobacco Use Types Packs/Day [...] 03/26/2025 9:15 AM EST Office Visit [facility] MEDICINE [address] [place] [address] Nahomy Davies MD [address] [place] [address] 52833 documented as of this encounter Visit Diagnoses Diagnosis Type 2 diabetes mellitus with other specified complication, with long-term current use of insulin (HCC) documented in this encounter Additional Health Concerns Assessment Noted Time PHQ-9 Depression Total Score: 0 04/23/19 23 9:18 AM EST documented as of this encounter Care Teams Sql Database Programmer Relationship Specialty Start Date End Date Nahomy Davies MD [address] [place] [phone] PCP - General Internal Medicine 01/13/23 [facility] documented as of this encounter
--- OUTSIDE RECORDS SUMMARY | 2025-01-24 14:00 | XMS_ITS | Encounter Summary ---
Author Organization [employer] Address [address] [facility] 7t [place] [address] Care Team Providers Care Manager Market Development Name Role Phone Nahomy Davies MD Primary Care Pro vider Reason for Visit * Reason Comments Med Refill Encounter Details Date Type Department Care Team ([facility] st Contact Info) Description 03/05/2024 Refill [facility] MEDICINE 230 [place], [place] [phone] Irene Mei MD 230 [place], [place] [phone] Type 2 diabetes mellitus with other specified complication, with long-term current use of insulin ([facility]); Shortness of breath; [...] Description 03/26/2025 9:15 AM EST Office Visit [facility] [address] [place] [address] Nahomy Davies MD [address] [place] [address] 50[address] documented as of this encounter Visit Diagnoses Diagnosis Type 2 diabetes mellitus with other specified complication, with long-term current use of insulin (HCC) Shortness of breath Chronic neck pain Cervicalgia documented in this encounter Additional Health Concerns Assessment Noted Time PHQ-9 Depression Total Score: 0 04/23/19 23 9:18 AM EST documented as of this encounter Care Teams Manager Market Development Relationship Specialty Start Date End Date Nahomy Davies MD [address] [place] [address] [phone] PCP - General Internal Medicine 01/13/23 Nika BLOOMA 11/17/24 documented as of this encounter
--- OUTSIDE RECORDS SUMMARY | 2025-01-24 14:00 | XMS_ITS | Encounter Summary ---
Author Organization [employer] Address [address] [place] [address] 7[address] [place] [address] Care Team Providers Care Frit Coater Name Role Phone Nancy Larose [facility] Primary Care Provider Nahomy Wilkins MD Primary Care Pro vider Reason for Visit * Reason Comments Med Refill Encounter Details Date Type Department Care Team (Late st Contact Info) Description 09/15/2022 Refill [facility] 230 [place] [address] Anamaria Herzog FNP [address] [place] [address] Type 2 diabetes mellitus with other specified complication, with long-term current use of insulin ([facility]) Social History Tobacco Use Types [...] Department Care Team (Late Contact Info) Description 03/26/2025 9:15 AM EST Office Visit [facility] 230 [place] [address] Nahomy Davies MD 230 [place] [address] documented as of this encounter Visit Diagnoses Diagnosis Type 2 diabetes mellitus with other specified complication, with long-term current use of insulin (HCC) documented in this encounter Additional Health Concerns Assessment Noted Time PHQ-9 Depression Total Score: 0 04/23/19 9:18 AM EST documented as of this encounter Care Teams Frit Coater Relationship Specialty Start Date End Date Nancy Larose FNP PCP - General Family Medicine 12/08/21 01/12/23 Nahomy Davies MD 230 [place] [address] PCP - General Internal Medicine 01/13/23 Nika A 11/17/24 documented as of this encounter
--- OUTSIDE RECORDS SUMMARY | 2025-01-24 14:00 | XMS_ITS | Encounter Summary ---
Author Organization [employer] Address [address] [facility] 7t [place] [address] Care Team Providers Care Transition Program Manager Name Role Phone Nahomy Davies MD Primary Care Pro vider Reason for Visit * Reason Comments Med Refill Encounter Details Date Type Department Care Team ([facility] st Contact Info) Description 04/20/2024 Refill [facility] CHC MED & PEDS [address] [place], [place] [phone] Suyapa Doyle MD 230 [place] [address] Iron deficiency anemia, unspecified iron deficiency anemia [...] Description 03/26/2025 9:15 AM EST Office Visit [facility] MEDICINE [address] [place] [address] Nahomy Davies MD [address] [place] [address] 8[address]46 documented as of this encounter Visit Diagnoses Diagnosis Iron deficiency anemia, unspecified iron deficiency anemia type documented in this encounter Additional Health Concerns Assessment Noted Time PHQ-9 Depression Total Score: 0 04/23/19 9:18 AM EST documented as of this encounter Care Teams Transition Program Manager Relationship Specialty Start Date End Date Nahomy Davies MD [address] [place] [address] PCP - General Internal Medicine 01/13/23 [facility] documented as of this encounter
--- OUTSIDE RECORDS SUMMARY | 2025-01-24 14:00 | XMS_ITS | Encounter Summary ---
Author Organization [employer] Address 75 [facility] 7t [place] [address] Care Team Providers Care Power Station Operator Name Role Phone Nahomy Davies MD Primary Care Pro vider Reason for Visit * Reason Comments Med Refill Encounter Details Date Type Department Care Team ([facility] st Contact Info) Description 02/27/2024 Refill [facility] MEDICINE 230 [place], [place] [phone] Irene Mei MD 230 [place], [place] [phone] Shortness of breath; Type 2 diabetes mellitus with other specified complication, with long-term current use of insulin ([facility]) Social History Tobacco [...] Description 03/26/2025 9:15 AM EST Office Visit [facility] MEDICINE [address] [place] [address] Nahomy Davies MD [address] [place] [address] 17348 documented as of this encounter Visit Diagnoses Diagnosis Shortness of breath Type 2 diabetes mellitus with other specified complication, with long-term current use of insulin (HCC) documented in this encounter Additional Health Concerns Assessment Noted Time PHQ-9 Depression Total Score: 0 04/23/19 23 9:18 AM EST documented as of this encounter Care Teams Power Station Operator Relationship Specialty Start Date End Date Nahomy Davies MD [address] [place] [address] [phone] PCP - General Internal Medicine 01/13/23 [facility] 11/17/24 documented as of this encounter
--- OUTSIDE RECORDS SUMMARY | 2025-01-24 14:00 | XMS_ITS | Encounter Summary ---
Author Organization [employer] Address [address] [place] [address] Care Team Providers Care Machinist Brake Name Role Phone Nancy Larose [employer] VICE PRESIDENT Primary Care Provider Nahomy Wilkins MD Primary Care Pro vider Encounter Details Date Type Department Care Team (Late Contact Info) Description 10/19/2022 Orders Only [facility] MEDICINE [address] [place] [address] Kary Lux LPN Social History Tobacco [...] Upcoming Encounters Date Type Department Care Team ([facility] Contact Info) Description 03/26/2025 9:15 AM EST Office Visit [facility] MEDICINE [address] [place] [address] [phone] Nahomy Davies MD [address] [place] [address] documented as of this encounter Visit Diagnoses Not on filedocumented in this encounter Additional Health Concerns Assessment Noted Time PHQ-9 Depression Total Score: 0 04/23/19 9:18 AM EST documented as of this encounter Care Teams Machinist Brake Relationship Specialty Start Date End Date Nancy Larose FNP PCP - General Family Medicine 12/08/21 01/12/23 Nahomy Davies MD 230 [place] [address] PCP - General Internal Medicine 01/13/23 Nika ZAMAN 11/17/24 documented as of this encounter
--- OUTSIDE RECORDS SUMMARY | 2025-01-24 14:00 | XMS_ITS | Encounter Summary ---
Author Organization [employer] Address [address] [facility] 7 [place] [address] Care Team Providers Care Audio Director Name Role Phone Nahomy Davies MD Primary Care Pro vider Reason for Visit * Reason Comments Med Refill Encounter Details Date Type Department Care Team ([facility] st Contact Info) Description 01/08/2025 Refill [facility] MEDICINE 230 [place] [address] Nahomy Davies MD 230 [place] [address] Iron deficiency anemia, unspecified iron deficiency anemia [...] Description 03/26/2025 9:15 AM EST Office Visit [facility] MEDICINE [address] [place] [address] Nahomy Davies MD [address] [place] [address] documented as of this encounter Visit Diagnoses Diagnosis Iron deficiency anemia, unspecified iron deficiency anemia type documented in this encounter Additional Health Concerns Assessment Noted Time PHQ-9 Depression Total Score: 0 09/27/19 2:19 PM EDT documented as of this encounter Care Teams Audio Director Relationship Specialty Start Date End Date Nahomy Davies MD [address] [place] [address] 10871 PCP - General Internal Medicine 01/13/23 [facility] 11/17/24 documented as of this encounter
--- OUTSIDE RECORDS SUMMARY | 2025-01-24 14:00 | XMS_ITS | Encounter Summary ---
Author Organization [employer] Address [address] [facility] 7[place] [address] Care Team Providers Care Doula Name Role Phone Nahomy Davies MD Primary Care Pro vider Reason for Visit * Reason Comments Med Refill Encounter Details Date Type Department Care Team ([facility] st Contact Info) Description 02/02/2024 Refill [facility] MEDICINE 230 [place], [place] [phone] Nahomy Davies MD 230 [place] [address] Iron deficiency anemia, unspecified iron deficiency anemia [...] Description 03/26/2025 9:15 AM EST Office Visit [facility] MEDICINE [address] [place] [address] Nahomy Davies MD [address] [place] [address] [phone] documented as of this encounter Visit Diagnoses Diagnosis Iron deficiency anemia, unspecified iron deficiency anemia type Mixed hyperlipidemia documented in this encounter Additional Health Concerns Assessment Noted Time PHQ-9 Depression Total Score: 0 04/23/19 23 9:18 AM EST documented as of this encounter Care Teams Doula Relationship Specialty Start Date End Date Nahomy Davies MD [address] [place] [phone] PCP - General Internal Medicine 01/13/23 [facility] 11/17/[facility] documented as of this encounter
--- OUTSIDE RECORDS SUMMARY | 2025-01-24 14:00 | XMS_ITS | Encounter Summary ---
Author Organization [employer] Address [address] [facility] 7t [place] [address] Care Team Providers Care Naturopathic Oncology Provider Name Role Phone Nahomy Davies MD Primary Care Pro vider Reason for Visit * Reason Comments Med Refill Encounter Details Date Type Department Care Team ([facility] st Contact Info) Description 08/07/2024 Refill [facility] CHC MED & PEDS [address] [place], [place] [phone] Irene Mei MD 230 [place] [address] Social History Tobacco Use Types Packs/Day Years [...] Description 03/26/2025 9:15 AM EST Office Visit [facility] MEDICINE [address] [place] [address] Nahomy Davies MD [address] [place] [address] documented as of this encounter Visit Diagnoses Not on filedocumented in this encounter Additional Health Concerns Assessment Noted Time PHQ-9 Depression Total Score: 0 04/23/19 9:18 AM EST documented as of this encounter Care Teams Naturopathic Oncology Provider Relationship Specialty Start Date End Date Nahomy Davies MD [address] [place] [address] 14[address] PCP - General Internal Medicine 01/13/23 [facility] documented as of this encounter
--- OUTSIDE RECORDS SUMMARY | 2025-01-24 14:00 | XMS_ITS | Encounter Summary ---
Author Organization [employer] Address [address] [facility] 7t [place] [address] Care Team Providers Care Adaptive Physical Education Specialist Name Role Phone Nahomy Davies MD Primary Care Pro vider Reason for Visit * Reason Comments Med Refill Encounter Details Date Type Department Care Team ([facility] st Contact Info) Description 01/22/2024 Refill [facility] MEDICINE 230 [place] [address] Nahomy Davies MD 230 [place] [address] Social History Tobacco Use Types Packs/Day Years [...] Description 03/26/2025 9:15 AM EST Office Visit [facility] MEDICINE [address] [place] [address] 269[address] Nahomy Davies MD [address] [place] [address] documented as of this encounter Visit Diagnoses Not on filedocumented in this encounter Additional Health Concerns Assessment Noted Time PHQ-9 Depression Total Score: 0 04/23/19 9:18 AM EST documented as of this encounter Care Teams Adaptive Physical Education Specialist Relationship Specialty Start Date End Date Nahomy Davies MD [address] [place] [address] PCP - General Internal Medicine 01/13/23 [facility] 11/[facility] documented as of this encounter
--- OUTSIDE RECORDS SUMMARY | 2025-01-24 14:00 | XMS_ITS | Encounter Summary ---
Author Organization [employer] Address [address] [facility] [address] [place] [address] Care Team Providers Care Ampoule Examiner Name Role Phone Nahomy Davies MD Primary Care Pro vider Reason for Visit * Reason Comments Med Refill Encounter Details Date Type Department Care Team ([facility] st Contact Info) Description 01/31/2024 Refill [facility] 230 [place], [place] [phone] Nahomy Davies MD 230 [place] [address] Iron deficiency anemia, unspecified iron deficiency anemia [...] Description 03/26/2025 9:15 AM EST Office Visit [facility] [address] [place] [address] Nahomy Davies MD [address] [place] [address] documented as of this encounter Visit Diagnoses Diagnosis Iron deficiency anemia, unspecified iron deficiency anemia type Mixed hyperlipidemia documented in this encounter Additional Health Concerns Assessment Noted Time PHQ-9 Depression Total Score: 0 04/23/19 23 9:18 AM EST documented as of this encounter Care Teams Ampoule Examiner Relationship Specialty Start Date End Date Nahomy Davies MD [address] [place] [address] PCP - General Internal Medicine 01/13[facility]23 [facility] documented as of this encounter
--- OUTSIDE RECORDS SUMMARY | 2025-01-24 14:00 | XMS_ITS | Encounter Summary ---
Author Organization [employer] Address 75 [facility] 7t [place] [address] Care Team Providers Care Quality Control Analyst Name Role Phone Nahomy Davies MD Primary Care Pro vider Reason for Visit * Reason Comments Med Refill Encounter Details Date Type Department Care Team ([facility] st Contact Info) Description 02/23/2024 Refill [facility] 230 [place], [place] [phone] Irene Mei MD 230 [place], [place] [phone] Type 2 diabetes mellitus with other specified complication, with long-term current use of insulin ([facility]); Shortness of breath Social History Tobacco [...] Description 03/26/2025 9:15 AM EST Office Visit [facility] [address] [place] [address] Nahomy Davies MD [address] [place] [address] documented as of this encounter Visit Diagnoses Diagnosis Type 2 diabetes mellitus with other specified complication, with long-term current use of insulin (HCC) Shortness of breath documented in this encounter Additional Health Concerns Assessment Noted Time PHQ-9 Depression Total Score: 0 04/23/19 23 9:18 AM EST documented as of this encounter Care Teams Quality Control Analyst Relationship Specialty Start Date End Date Nahomy Davies MD [address] [place] [phone] PCP - General Internal Medicine 01/13/23 [facility] 11/17/24 documented as of this encounter
--- OUTSIDE RECORDS SUMMARY | 2025-01-24 14:00 | XMS_ITS | Encounter Summary ---
Author Organization [employer] Address 75 [facility] 7 [place] [address] Care Team Providers Care Venetian Blind Mechanic Name Role Phone Nahomy Davies MD Primary Care Pro vider Reason for Visit * Reason Comments Med Refill Encounter Details Date Type Department Care Team ([facility] st Contact Info) Description 11/27/2024 Refill [facility] 230 [place] [address] Nahomy Davies MD 230 [place] [address] Shortness of breath; Type 2 diabetes mellitus without complication, without long-term current use of insulin ([facility]) Social History Tobacco [...] Description 03/26/2025 9:15 AM EST Office Visit [facility] [address] [place] [address] Nahomy Davies MD 230 [place] [address] documented as of this encounter Visit Diagnoses Diagnosis Shortness of breath Type 2 diabetes mellitus without complication, without long-term current use of insulin (HCC) documented in this encounter Additional Health Concerns Assessment Noted Time PHQ-9 Depression Total Score: 0 09/27/19 25 2:19 PM EDT documented as of this encounter Care Teams Venetian Blind Mechanic Relationship Specialty Start Date End Date Nahomy Davies MD 230 [place] [address] PCP - General Internal Medicine 01/13/23 [facility] 11/17/24 documented as of this encounter
--- OUTSIDE RECORDS SUMMARY | 2025-01-24 14:00 | XMS_ITS | Encounter Summary ---
Author Organization [employer] Address [address] [place] [address] [address] [address] Care Team Providers Care Engineering Test Mechanic Name Role Phone Nancy Larose SUPERVISOR FINE GRADING Primary Care Provider Nahomy Wilkins MD Primary Care Pro vider Reason for Visit * Reason Comments Med Refill Encounter Details Date Type Department Care Team (Late st Contact Info) Description 09/23/2022 Refill [facility] [address] [place] [address] [phone] Nancy Larose FNP Shortness of breath Social [...] Description 03/26/2025 9:15 AM EST Office Visit [facility] [address] [place] [address] [phone] Nahomy Davies MD 230 [place], [place] [phone] documented as of this encounter Visit Diagnoses Diagnosis Shortness of breath documented in this encounter Additional Health Concerns Assessment Noted Time PHQ-9 Depression Total Score: 0 04/23/19 9:18 AM EST documented as of this encounter Care Teams Engineering Test Mechanic Relationship Specialty Start Date End Date Nancy Larose FNP PCP - General Family Medicine 12/08/21 01/12/23 Nahomy Davies MD [address] [place] [phone] PCP - General Internal Medicine 01/13/23 Nika Darius 11/17/24 documented as of this encounter
--- OUTSIDE RECORDS SUMMARY | 2025-01-24 14:00 | XMS_ITS | Encounter Summary ---
Author Organization [employer] Address [address] [place] [address] 7[place] [address] Care Team Providers Care Certified Pharmacist Assistant Name Role Phone Nancy Larose [facility] Primary Care Provider Nahomy Wilkins MD Primary Care Pro vider Reason for Visit * Reason Comments Med Refill Encounter Details Date Type Department Care Team ([facility] st Contact Info) Description 08/30/2022 Refill [facility] 230 [place] [address] Anamaria Herzog FNP 505 [place] [address] Type 2 diabetes mellitus with other specified complication, with long-term current use of insulin ([facility]) Social History Tobacco Use Types [...] Upcoming Encounters Date Type Department Care Team ([facility] Contact Info) Description 03/26/2025 9:15 AM EST Office Visit [facility] 230 [place] [address] Nahomy Davies MD 230 [place] [address] documented as of this encounter Visit Diagnoses Diagnosis Type 2 diabetes mellitus with other specified complication, with long-term current use of insulin (HCC) documented in this encounter Additional Health Concerns Assessment Noted Time PHQ-9 Depression Total Score: 0 04/23/19 9:18 AM EST documented as of this encounter Care Teams Certified Pharmacist Assistant Relationship Specialty Start Date End Date Nancy Larose FNP PCP - General Family Medicine 12/08/21 01/12/23 Nahomy Davies MD 230 [place] [address] PCP - General Internal Medicine 01/13/23 Nika A 11/17/24 documented as of this encounter
--- OUTSIDE RECORDS SUMMARY | 2025-01-24 14:00 | XMS_ITS | Encounter Summary ---
Author Organization [employer] Address 75 [facility] 7t [place] [address] Care Team Providers Care Set Up Mechanic Coating Machines Name Role Phone Nahomy Davies MD Primary Care Pro vider Reason for Visit * Reason Comments Med Refill Encounter Details Date Type Department Care Team ([facility] st Contact Info) Description 02/23/2024 Refill [facility] 230 [place] [address] Nahomy Davies MD 230 [place], [place] [phone] Essential hypertension; Type 2 diabetes mellitus without complication, without long-term current use of insulin ([facility]) Social History Tobacco Use [...] 9:15 AM EST Office Visit [facility] [address] [place] [address] Nahomy Davies MD [address] [place] [phone] documented as of this encounter Visit Diagnoses Diagnosis Essential hypertension Unspecified essential hypertension Type 2 diabetes mellitus without complication, without long-term current use of insulin (HCC) documented in this encounter Additional Health Concerns Assessment Noted Time PHQ-9 Depression Total Score: 0 04/23/19 23 9:18 AM EST documented as of this encounter Care Teams Set Up Mechanic Coating Machines Relationship Specialty Start Date End Date Nahomy Davies MD [address] [place] [phone] PCP - General Internal Medicine 01/13/23 [facility] documented as of this encounter
--- OUTSIDE RECORDS SUMMARY | 2025-01-24 14:00 | XMS_ITS | Encounter Summary ---
Author Organization [employer] Address [address] [place] [address] 7[place] [address] Care Team Providers Care Pattern Data Operator Name Role Phone Nancy Larose CREDIT COLLECTION SPECIALIST Primary Care Provider Nahomy Wilkins MD Primary Care Pro vider Encounter Details Date Type Department Care Team (Late st Contact Info) Description 03/30/2022 Orders Only [facility] 230 [place], [place] [phone] Kary Lux LPN Social History Tobacco Use [...] Description 03/26/2025 9:15 AM EST Office Visit [facility] [address] [place] [address] Nahomy Davies MD 230 [place], [place] [phone] documented as of this encounter Visit Diagnoses Not on filedocumented in this encounter Care Teams Pattern Data Operator Relationship Specialty Start Date End Date Nancy Larose FNP PCP - General Family Medicine 12/08/21 01/12/23 Nahomy Davies MD [address] [place] [address] [phone] PCP - General Internal Medicine 01/13/23 Nika ZAMAN 11/17/24 documented as of this encounter
--- OUTSIDE RECORDS SUMMARY | 2025-01-24 14:00 | XMS_ITS | Encounter Summary ---
Author Organization [employer] Address 75 [facility] 7t [place] [address] Care Team Providers Care Health Coach Name Role Phone Nahomy Davies MD Primary Care Pro vider Reason for Visit * Reason Comments Med Refill Encounter Details Date Type Department Care Team ([facility] st Contact Info) Description 02/28/2024 Refill [facility] 230 [place], [place] [phone] Irene Mei MD 230 [place], [place] [phone] Type 2 diabetes mellitus with other specified complication, with long-term current use of insulin ([facility]); Shortness of breath; Chronic neck [...] Description 03/26/2025 9:15 AM EST Office Visit [facility] [address] [place] [phone] Nahomy Davies MD [address] [place] [address] documented as of this encounter Visit Diagnoses Diagnosis Type 2 diabetes mellitus with other specified complication, with long-term current use of insulin (HCC) Shortness of breath Chronic neck pain Cervicalgia documented in this encounter Additional Health Concerns Assessment Noted Time PHQ-9 Depression Total Score: 0 04/23/19 23 9:18 AM EST documented as of this encounter Care Teams Health Coach Relationship Specialty Start Date End Date Nahomy Davies MD [address] [place] [phone] PCP - General Internal Medicine 01/13/23 Nika BLOOMA 11/17/24 documented as of this encounter
--- OUTSIDE RECORDS SUMMARY | 2025-01-24 14:01 | XMS_ITS | Encounter Summary ---
Author Organization [employer] Address 75 [facility] 7t [place] [address] Care Team Providers Care Sidehand Name Role Phone Nahomy Davies MD Primary Care Pro vider Reason for Visit * Reason Comments Med Refill Encounter Details Date Type Department Care Team ([facility] st Contact Info) Description 06/23/2023 Refill [facility] 230 [place] [address] Nahomy Davies MD 230 [place] [address] Social History Tobacco Use Types Packs/Day Years [...] 9:15 AM EST Office Visit [facility] [address] [place] [address] Nahomy Davies MD [address] [place] [phone] documented as of this encounter Visit Diagnoses Not on filedocumented in this encounter Additional Health Concerns Assessment Noted Time PHQ-9 Depression Total Score: 0 04/23/19 23 9:18 AM EST documented as of this encounter Care Teams Sidehand Relationship Specialty Start Date End Date Nahomy Davies MD [address] [place] [address] [phone] PCP - General Internal Medicine 01/13/23 Nika BLOOMA 11/17/24 documented as of this encounter
--- OUTSIDE RECORDS SUMMARY | 2025-01-24 14:01 | XMS_ITS | Encounter Summary ---
Author Organization [employer] Address 75 [facility] 7t [place] [address] Care Team Providers Care Funeral Workers Name Role Phone Nahomy Davies MD Primary Care Pro vider Reason for Visit * Reason Comments Med Refill Encounter Details Date Type Department Care Team ([facility] st Contact Info) Description 07/23/2023 Refill [facility] 230 [place] [address] Nahomy Davies MD 230 [place] [address] Iron deficiency anemia, unspecified iron deficiency anemia type; Type 2 diabetes mellitus without complication, without long-term current use of insulin ([facility]) Social History Tobacco Use Types Packs/Day [...] Description 03/26/2025 9:15 AM EST Office Visit [facility] [address] [place] [address] Nahomy Davies MD [address] [place] [phone] documented as of this encounter Visit Diagnoses Diagnosis Iron deficiency anemia, unspecified iron deficiency anemia type Type 2 diabetes mellitus without complication, without long-term current use of insulin (HCC) documented in this encounter Additional Health Concerns Assessment Noted Time PHQ-9 Depression Total Score: 0 04/23/19 23 9:18 AM EST documented as of this encounter Care Teams Funeral Workers Relationship Specialty Start Date End Date Nahomy Davies MD [address] [place] [phone] PCP - General Internal Medicine 01/13/23 [facility] 11/17/24 documented as of this encounter
--- OUTSIDE RECORDS SUMMARY | 2025-01-24 14:01 | XMS_ITS | Encounter Summary ---
Author Organization [employer] Address 75 [facility] 7t [place] [address] Care Team Providers Care Waiter/Waitress Second Class Name Role Phone Nahomy Davies MD Primary Care Pro vider Reason for Visit * Reason Comments Med Refill Encounter Details Date Type Department Care Team ([facility] st Contact Info) Description 04/20/2024 Refill [facility] [address] [place], [place] [phone] Nahomy Davies MD 230 [place], [place] [phone] Mixed hyperlipidemia Social History Tobacco Use Types [...] 03/26/2025 9:15 AM EST Office Visit [facility] [address] [place] [address] Nahomy Davies MD [address] [place] [phone] documented as of this encounter Visit Diagnoses Diagnosis Mixed hyperlipidemia documented in this encounter Additional Health Concerns Assessment Noted Time PHQ-9 Depression Total Score: 0 04/23/19 9:18 AM EST documented as of this encounter Care Teams Waiter/Waitress Second Class Relationship Specialty Start Date End Date Nahomy Davies MD [address] [place] [phone] PCP - General Internal Medicine 01/13/23 [facility] documented as of this encounter
--- OUTSIDE RECORDS SUMMARY | 2025-01-24 14:01 | XMS_ITS | Encounter Summary ---
Author Organization [employer] Address 75 [facility] 7t [place] [address] Care Team Providers Care Producer Name Role Phone Nahomy Davies MD Primary Care Pro vider Reason for Visit * Reason Comments Med Refill Encounter Details Date Type Department Care Team ([facility] st Contact Info) Description 10/22/2024 Refill [facility] 230 [place] [address] Nahomy Davies MD 230 [place] [address] Cobalamin deficiency Social History Tobacco Use Types [...] Description 03/26/2025 9:15 AM EST Office Visit [facility] [address] [place] [address] Nahomy Davies MD [address] [place] [phone] documented as of this encounter Visit Diagnoses Diagnosis Cobalamin deficiency Other B-complex deficiencies documented in this encounter Additional Health Concerns Assessment Noted Time PHQ-9 Depression Total Score: 0 09/27/19 2:19 PM EDT documented as of this encounter Care Teams Producer Relationship Specialty Start Date End Date Nahomy Davies MD [address] [place] [phone] PCP - General Internal Medicine 01/13/23 [facility] 11/[facility] documented as of this encounter
--- OUTSIDE RECORDS SUMMARY | 2025-01-24 14:01 | XMS_ITS | Encounter Summary ---
Author Organization [employer] Address 75 [facility] 7t [place] [address] Care Team Providers Care Assembler Wire Mesh Gate Name Role Phone Nahomy Davies MD Primary Care Pro vider Reason for Visit * Reason Comments Med Refill Encounter Details Date Type Department Care Team ([facility] st Contact Info) Description 07/04/2023 Refill [facility] 230 [place] [address] Nahomy Davies MD 230 [place] [address] Social History Tobacco Use Types Packs/Day Years [...] Office Visit [facility] [address] [place] [address] Nahomy Davies MD [address] [place] [phone] documented as of this encounter Visit Diagnoses Not on filedocumented in this encounter Additional Health Concerns Assessment Noted Time PHQ-9 Depression Total Score: 0 04/23/19 23 9:18 AM EST documented as of this encounter Care Teams Assembler Wire Mesh Gate Relationship Specialty Start Date End Date Nahomy Davies MD [address] [place] [address] [phone] PCP - General Internal Medicine 01/13/23 Nika BLOOMA 11/17/24 documented as of this encounter
--- OUTSIDE RECORDS SUMMARY | 2025-01-24 14:01 | XMS_ITS | Encounter Summary ---
Author Organization [employer] Address [address] [facility] 7t [place] [address] Care Team Providers Care Point Of Care Specialist Name Role Phone Nahomy Davies MD Primary Care Pro vider Reason for Visit * Reason Comments Med Refill Encounter Details Date Type Department Care Team ([facility] st Contact Info) Description 06/05/2023 Refill [facility] 230 [place] [address] Nahomy Davies MD 230 [place] [address] Social History Tobacco Use Types Packs/Day Years [...] [facility] [address] [place] [address] Nahomy Davies MD [address] [place] [phone] documented as of this encounter Visit Diagnoses Not on filedocumented in this encounter Additional Health Concerns Assessment Noted Time PHQ-9 Depression Total Score: 0 04/23/19 23 9:18 AM EST documented as of this encounter Care Teams Point Of Care Specialist Relationship Specialty Start Date End Date Nahomy Davies MD [address] [place] [address] [phone] PCP - General Internal Medicine 01/13/23 Nika BLOOMA 11/17/24 documented as of this encounter
--- OUTSIDE RECORDS SUMMARY | 2025-01-24 14:01 | XMS_ITS | Encounter Summary ---
Author Organization [employer] Address 75 [facility] 7t [place] [address] Care Team Providers Care Proposal Manager Writer Name Role Phone Nahomy Davies MD Primary Care Pro vider Reason for Visit * Reason Comments Med Refill Encounter Details Date Type Department Care Team ([facility] st Contact Info) Description 10/31/2024 Refill [facility] [address] [place], [place] [phone] Nahomy Davies MD 230 [place], [place] [phone] Type 2 diabetes mellitus without complication, without long-term current use of insulin ([facility]) Social History Tobacco Use Types Packs/Day Years [...] Description 03/26/2025 9:15 AM EST Office Visit [facility] [address] [place] [address] Nahomy Davies MD [address] [place] [address] documented as of this encounter Visit Diagnoses Diagnosis Type 2 diabetes mellitus without complication, without long-term current use of insulin (HCC) documented in this encounter Additional Health Concerns Assessment Noted Time PHQ-9 Depression Total Score: 0 09/27/19 2:19 PM EDT documented as of this encounter Care Teams Proposal Manager Writer Relationship Specialty Start Date End Date Nahomy Davies MD [address] [place] [phone] PCP - General Internal Medicine 01/13/23 [facility] 11/[facility] documented as of this encounter
--- OUTSIDE RECORDS SUMMARY | 2025-01-24 14:01 | XMS_ITS | Encounter Summary ---
Author Organization [employer] Address 75 [facility] 7t [place] [address] Care Team Providers Care Office Rental Clerk Name Role Phone Nahomy Davies MD Primary Care Pro vider Reason for Visit * Reason Comments Med Refill Encounter Details Date Type Department Care Team ([facility] st Contact Info) Description 01/31/2023 Refill [facility] 230 [place] [address] Nancy Larose FNP Social History Tobacco Use [...] 03/26/2025 9:15 AM EST Office Visit [facility] [address] [place] [phone] Nahomy Davies MD [address] [place] [phone] documented as of this encounter Visit Diagnoses Not on filedocumented in this encounter Additional Health Concerns Assessment Noted Time PHQ-9 Depression Total Score: 0 04/23/19 9:18 AM EST documented as of this encounter Care Teams Office Rental Clerk Relationship Specialty Start Date End Date Nahomy Davies MD [address] [place] [phone] PCP - General Internal Medicine 01/13/23 [place] [facility] 11/17/24 documented as of this encounter
--- OUTSIDE RECORDS SUMMARY | 2025-01-24 14:01 | XMS_ITS | Encounter Summary ---
Author Organization [employer] Address 75 [facility] 7t [place] [address] Care Team Providers Care Supervisor Rice Milling Name Role Phone Nahomy Davies MD Primary Care Pro vider Reason for Visit * Reason Comments Med Refill Encounter Details Date Type Department Care Team ([facility] st Contact Info) Description 02/07/2023 Refill [facility] 230 [place] [address] Nancy Larose FNP Social History Tobacco Use [...] Description 03/26/2025 9:15 AM EST Office Visit [facility] [address] [place] [address] Nahomy Davies MD [address] [place] [phone] documented as of this encounter Visit Diagnoses Not on filedocumented in this encounter Additional Health Concerns Assessment Noted Time PHQ-9 Depression Total Score: 0 04/23/19 9:18 AM EST documented as of this encounter Care Teams Supervisor Rice Milling Relationship Specialty Start Date End Date Nahomy Davies MD [address] [place] [phone] PCP - General Internal Medicine 01/13/23 [place] [facility] 11/17/24 documented as of this encounter
--- OUTSIDE RECORDS SUMMARY | 2025-01-24 14:01 | XMS_ITS | Encounter Summary ---
Author Organization [employer] Address 75 [facility] 7t [place] [address] Care Team Providers Care Gift Wrapper Name Role Phone Nahomy Davies MD Primary Care Pro vider Reason for Visit * Reason Comments Med Refill Encounter Details Date Type Department Care Team ([facility] st Contact Info) Description 06/20/2023 Refill [facility] 230 [place] [address] Nahomy Davies MD 230 [place] [address] Social History Tobacco Use Types Packs/Day Years [...] 03/26/2025 9:15 AM EST Office Visit [facility] [address] [place] [address] Nahomy Davies MD [address] [place] [phone] documented as of this encounter Visit Diagnoses Not on filedocumented in this encounter Additional Health Concerns Assessment Noted Time PHQ-9 Depression Total Score: 0 04/23/19 23 9:18 AM EST documented as of this encounter Care Teams Gift Wrapper Relationship Specialty Start Date End Date Nahomy Davies MD [address] [place] [address] [phone] PCP - General Internal Medicine 01/13/23 Nika BLOOMA 11/17/24 documented as of this encounter
--- OUTSIDE RECORDS SUMMARY | 2025-01-24 14:01 | XMS_ITS | Encounter Summary ---
Author Organization [employer] Address [address] [facility] 7t [place] [address] Care Team Providers Care Hand Fabric Cutter Name Role Phone Nahomy Davies MD Primary Care Pro vider Reason for Visit * Reason Comments Med Refill Encounter Details Date Type Department Care Team ([facility] st Contact Info) Description 05/16/2024 Refill [facility] MED & PEDS [address] [place], [place] [phone] Nahomy Davies MD [address] [place], [place] [phone] Social History Tobacco Use Types Packs/Day Years [...] 03/26/2025 9:15 AM EST Office Visit [facility] MEDICINE [address] [place] [phone] Nahomy Davies MD [address] [place] [phone] documented as of this encounter Visit Diagnoses Not on filedocumented in this encounter Additional Health Concerns Assessment Noted Time PHQ-9 Depression Total Score: 0 04/23/19 23 9:18 AM EST documented as of this encounter Care Teams Hand Fabric Cutter Relationship Specialty Start Date End Date Nahomy Davies MD [address] [place] [phone] PCP - General Internal Medicine [facility] documented as of this encounter
--- OUTSIDE RECORDS SUMMARY | 2025-01-24 14:01 | XMS_ITS | Encounter Summary ---
Author Organization [employer] Address [address] [facility] 7t [place] [address] Care Team Providers Care Freight Car Repairer Name Role Phone Nahomy Davies MD Primary Care Pro vider Reason for Visit * Reason Comments Med Refill Encounter Details Date Type Department Care Team ([facility] st Contact Info) Description 10/31/2024 Refill [facility] MEDICINE [address] [place], [place] [phone] Sabrina Gonzalez NP [address] [place] [phone] Social History Tobacco Use Types Packs/Day Years [...] EST Office Visit [facility] MEDICINE [address] [place] [phone] Nahomy Davies MD [address] [place] [phone] documented as of this encounter Visit Diagnoses Not on filedocumented in this encounter Additional Health Concerns Assessment Noted Time PHQ-9 Depression Total Score: 0 09/27/19 2:19 PM EDT documented as of this encounter Care Teams Freight Car Repairer Relationship Specialty Start Date End Date Nahomy Davies MD [address] [place] [phone] PCP - General Internal Medicine [facility] documented as of this encounter
--- OUTSIDE RECORDS SUMMARY | 2025-01-24 14:01 | XMS_ITS | Encounter Summary ---
Author Organization [employer] Address [address] [facility] 7t [place] [address] Care Team Providers Care Principal Engineer Name Role Phone Nahomy Davies MD Primary Care Pro vider Reason for Visit * Reason Comments Med Refill Encounter Details Date Type Department Care Team ([facility] st Contact Info) Description 07/10/2024 Refill [facility] MED & PEDS [address] [place], [place] [phone] Suyapa Doyle MD [address] [place], [place] [phone] Acquired hypothyroidism; Osteopenia determined by x-ray; Sleep [...] Office Visit [facility] MEDICINE [address] [place] [phone] Nahomy Davies MD [address] [place] [phone] documented as of this encounter Visit Diagnoses Diagnosis Acquired hypothyroidism Unspecified hypothyroidism Osteopenia determined by x-ray Sleep disturbance Unspecified sleep disturbance Iron deficiency anemia, unspecified iron deficiency anemia type documented in this encounter Additional Health Concerns Assessment Noted Time PHQ-9 Depression Total Score: 0 04/23/19 23 9:18 AM EST documented as of this encounter Care Teams Principal Engineer Relationship Specialty Start Date End Date Nahomy Davies MD [address] [place] [phone] PCP - General Internal Medicine 01/13/23 [facility] 11/17/24 documented as of this encounter
--- OUTSIDE RECORDS SUMMARY | 2025-01-24 14:01 | XMS_ITS | Encounter Summary ---
Author Organization [employer] Address [address] [facility] 7t [place] [address] Care Team Providers Care Sewing Machine Mechanic Name Role Phone Nahomy Davies MD Primary Care Pro vider Reason for Visit * Reason Comments Med Refill Encounter Details Date Type Department Care Team ([facility] st Contact Info) Description 06/29/[address] [facility] MEDICINE [address] [place] [phone] Nahomy Davies MD [address] [place] [address] Social History Tobacco Use Types Packs/Day Years [...] 9:15 AM EST Office Visit [facility] MEDICINE [address] [place] [phone] Nahomy Davies MD [address] [place] [phone] documented as of this encounter Visit Diagnoses Not on filedocumented in this encounter Additional Health Concerns Assessment Noted Time PHQ-9 Depression Total Score: 0 04/23/19 23 9:18 AM EST documented as of this encounter Care Teams Sewing Machine Mechanic Relationship Specialty Start Date End Date Nahomy Davies MD [address] [place] [address] [phone] PCP - General Internal Medicine 01/13/23 [facility] 11/17/24 documented as of this encounter
--- OUTSIDE RECORDS SUMMARY | 2025-01-24 14:01 | XMS_ITS | Encounter Summary ---
Author Organization [employer] Address [address] [facility] 7t [place] [address] Care Team Providers Care Wirer Passenger Car Name Role Phone Nahomy Davies MD Primary Care Pro vider Reason for Visit * Reason Comments Med Refill Encounter Details Date Type Department Care Team ([facility] st Contact Info) Description 07/10/2024 Refill [facility] MED & PEDS [address] [place], [place] [phone] Irene Mei MD [address] [place], [place] [phone] Type 2 diabetes mellitus without complication, without long-term current use of insulin ([facility]) Social History Tobacco Use Types [...] Description 03/26/2025 9:15 AM EST Office Visit [facility] MEDICINE [address] [place] [phone] Nahomy Davies MD [address] [place] [phone] documented as of this encounter Visit Diagnoses Diagnosis Type 2 diabetes mellitus without complication, without long-term current use of insulin (HCC) documented in this encounter Additional Health Concerns Assessment Noted Time PHQ-9 Depression Total Score: 0 04/23/19 23 9:18 AM EST documented as of this encounter Care Teams Wirer Passenger Car Relationship Specialty Start Date End Date Nahomy Davies MD [address] [place] [phone] PCP - General Internal Medicine [facility] documented as of this encounter
--- OUTSIDE RECORDS SUMMARY | 2025-01-24 14:01 | XMS_ITS | Clinical Summary ---
Author Organization [employer] Address [address] [facility] [address] [place] [address] Care Team Providers Care Ship Manager Name Role Phone Nahomy Davies MD [...] without long-term current use of insulin (HCC) APPLY A SMALL AMOUNT TOPICALLY TO AFFECTED AREA(S) TWO TIMES A DAY 60 g 3 023 Active latanoprost (Xalatan) 0.005 % ophthalmic solution Administer 1 drop into both eyes at bedtime. 023 Active brimonidine-timol ol (Combigan) 0.2-0.5 % ophthalmic solution Administer 1 drop into both eyes 2 times daily. 023 Active Continuous Glucose Mixer Operator Helper Hot Metal (FreeStyle Anthony 2 [place]) device Use as directed to monitor glucose [...] complication, with long-term current use of insulin ([facility]) CHEW AND SWALLOW 4 TABLETS BY MOUTH IF NEEDED FOR LOW BLOOD SUGAR (BULK) 50 tablet 3 Active Continuous Glucose Mixer Operator Helper Hot Metal (FreeStyle Anthony 3 [place]) deviceIndications :Type 2 diabetes mellitus with other specified complication, with long-term current use of insulin ([facility]) 1 each Once per day. Use as directed for CGM 1 each Active Continuous Glucose Sensor (FreeStyle Anthony 3 Plus Sensor) miscIndications:T ype 2 diabetes mellitus with other specified complication, with long-term current use of insulin ([facility]) 1 each every 15 days. Apply 1 [...] complication, without long-term current use of insulin ([facility]) USE TO TEST BLOOD SUGAR THREE TIMES A DAY 100 each Active metFORMIN XR (Glucophage-XR) 500 MG 24 hr tabletIndications :Type 2 diabetes mellitus without complication, without long-term current use of insulin ([facility]) TAKE TWO TABLETS BY MOUTH TWICE A [...] cholecalciferol VITAMIN D (Vitamin D-3) 50 MCG (1999) capsule TAKE ONE CAPSULE BY MOUTH EVERY [...] 2 diabetes mellitus without complication, unspecified whether alf insulin use Apply 1 Act topically at noon and [...] TIMES A DAY (BULK) 8.5 g Active insulin glargine (Lantus SoloStar) 100 UNIT/ML penIndications:Ty pe 2 diabetes mellitus with hypoglycemia without coma, with long-term current use of insulin (HCC) INJECT 18 UNITS UNDER THE SKIN AT BEDTIME (BULK) 30 mL Active Acetaminophen Extra Strength 500 MG tabletIndications :Type 2 diabetes mellitus without complication, without long-term current use of insulin (HCC) TAKE ONE TO TWO TABLETS BY MOUTH THREE TIMES A DAY NEEDED (VIAL) 60 tablet Active atorvastatin (Lipitor) 80 MG tabletIndications :Type 2 diabetes mellitus with other specified complication, with long-term current use of insulin (HCC) Take 1 tablet (80 mg) by mouth Once per day. 90 tablet 025 2025 Active atorvastatin (Lipitor) 40 MG tablet Take 1 tablet (40 mg) by mouth Once per day. 90 tablet 025 2024 Discontinued(R eorder (will not trigger notification to Pharmacy)) Active Problems Problem Noted Date Diagnosed Date Headache 09/26/2024 Pseudopolyposis of colon, un specified complication status, unspecified part of colon (CMS/HCC) 08/29/2024 Scalp lesion 08/29/2024 Intestinal metaplasia of stomach 01/25/2024 Left shoulder pain 11/22/2023 Stress incontinence of urine 10/04/2023 TIA (transient ischemic attack) 10/04/2023 Cervical myelopathy (CMS/[facility]) 10/04/2023 Parotid nodule 10/04/2023 Trigger middle finger [...] Encounters Date Type Department Care Team Description 01/23/2025 Refill [facility] [address] [place] [address] Nahomy Davies MD Type 2 diabetes mellitus without complication, without long-term current use of insulin ([facility]); Osteopenia determined by x-ray; Acquired hypothyroidism; Sleep disturbance; Essential hypertension 01/18/2025 9:15 AM EDT Office Visit [facility] MEDICINE [address] [place] [address] Karrie Carlisle MD Seborrheic keratoses (Primary Dx) 01/18/2025 Travel 01/14/2025 Results Follow-Up [facility] [address] [place] [address] Nahomy Davies MD Comprehensive Metabolic Panel, C-reactive Protein 01/14/2025 Orders Only GENERIC EXTERNAL DATA DEPARTMENT Provider, Generic External Data 01/10/2025 Telephone [facility] [place] [address] Nahomy Davies MD Med Refill 01/08/2025 Refill [facility] [place] [address] Nahomy Davies MD Iron deficiency anemia, unspecified iron deficiency anemia type 01/08/2025 Orders Only [facility] [place] [address] Nahomy Davies MD Type 2 diabetes mellitus with other specified complication, with long-term current use of insulin ([facility]) (Primary Dx) 12/26/2024 Refill [facility] [address] [place] [address] Nahomy Davise MD Iron deficiency anemia, unspecified iron deficiency anemia type 12/20/2024 Refill [facility] [address] [place] [address] Nahomy Davies MD Type 2 diabetes mellitus without complication, without long-term current use of insulin (CMS/HCC) 12/17/2024 Refill [facility] MED[facility] [address] [place] [address] Nahomy Davies MD Type 2 diabetes mellitus with hypoglycemia without coma, with long-term current use of insulin ([facility]) 12/11/2024 Telephone [facility] [address] [place] [phone] Kiarra Iniguez RN NTTS Triage 11/28/2024 Refill [facility] [address] [place] [phone] Nahomy Davies MD Shortness of breath 11/27/2024 Refill [facility] [address] [place] [phone] Nahomy Davies MD Shortness of breath; Type 2 diabetes mellitus without complication, without long-term current use of insulin ([facility]) 11/25/2024 Refill [facility] [address] [place] [phone] Nahomy Davies MD 11/22/2024 Telephone [facility] [address] [place] [phone] Nahomy Davies MD telephone call 11/21/2024 Refill [facility] [address] [place] [phone] Sabrina Gonzalez NP 11/20/[address] [address] Nahomy Davies MD fyi 11/19/2024 Refill [facility] [address] [place] [address] Nahomy Davies MD 11/16/2024 Refill [facility] [address] [place] [address] Nahomy Davies MD Type 2 diabetes mellitus without complication, without long-term current use of insulin ([facility]) 11/15/2024 Results Follow-Up [facility] [address] [place] [address] [phone] Abdomen Pelvis w/o Contrast 11/15/2024 Orders Only [facility] External Provider, [facility] 11/14/2024 8:40 AM EDT Office Visit [facility] [address] [place] [phone] Jp Snow MD Chronic right-sided low back pain with right-sided sciatica (Primary Dx); Chronic neck pain 11/14/2024 Travel 11/08/2024 Orders Only [facility] MEDICINE [address] [place] [address] Nahomy Davies MD 10/31/2024 Refill [facility] MED[facility] [address] [place] [address] Sabrina Gonzalez NP 10/31/2024 Refill [facility] [address] [place], [place] [phone] Nahomy Davies MD Type 2 diabetes mellitus without complication, without long-term current use of insulin (CMS/HCC) 10/30/2024 1:30 PM EDT Office Visit [facility] MEDICINE [address] [place] [address] Nahomy Davies MD Chronic pain of both [...] with acute exacerbation 10/30/2024 Travel 10/29/2024 Telephone [facility] [address] [place] [phone] Nahomy Davies MD chart prep from Last 3 Months Immunizations Immunization Administration [...] Sign Reading Time Taken Comments Blood Pressure 114/80 01/18/2025 8:55 AM EDT Pulse 64 01/18/2025 8:55 AM EDT Temperature 37.1 C (98.7 F) 01/18/2025 8:55 AM EDT Respiratory Rate 18 01/18/2025 8:55 AM EDT Oxygen Saturation 95% 11/14/2024 8:41 AM EDT Inhaled Oxygen Concentration - - Weight 92.8 kg (204 lb 8 oz) 01/18/2025 8:55 AM EDT Height 160 cm (5' 3 ) 01/18/2025 8:55 AM EDT Body Mass Index 36.23 01/18/2025 8:55 AM EDT Plan of Treatment Upcoming Encounters Date Type Department Care Team (Late st Contact Info) Description 03/26/2025 9:15 AM EST Office Visit [facility] MEDICINE [address] [place] [address] Nahomy Davies MD [address] [place] [address] Health Maintenance Due Date Last Done Comments [...] 08/28/2025 08/28/2024 Depression Screening 09/26/2025 09/26/2024, 09/27/19 Diabetes: Urine Protein Screening 10/04/2025 10/04/2024, 11/22/2023, 03/22/2023, Additional history exists Tobacco Screening 11/14/2025 11/14/2024 Lipid Panel 01/14/2026 01/14/2025, 09/10, 11/14/2023, Additional history exists DTaP/Tdap/Td Vaccines (3 - Td or Tdap) [...] Procedure Name Priority Date/Time Associated Diagnosis Comments LIPID PANEL, STANDARD Routine 01/14/2025 8:27 AM EDT C-REACTIVE PROTEIN Routine 01/14/2025 8: 27 AM EDT Numbness COMPREHENSIVE METABOLIC PANEL Routine 01/14/2025 8:27 AM EDT Type 2 diabetes mellitus with other specified complication, with long-term current use of insulin (HCC) CT ABDOMEN PELVIS WO CONTRAST Routine 11/15/2024 10:28 AM EDT CULTURE, URINE, ROUTINE Routine 11/14/2024 9:12 AM EDT Chronic right-sided low back pain with right-sided sciatica XR LUMBAR SPINE 2-3 VIEWS Routine 11/14/2024 8:29 AM EDT Chronic right-sided low back pain with right-sided sciatica VASC US LOWER EXTREMITY VENOUS INSUFFICIENCY BILATERAL Routine 11/02/2024 10:47 AM EDT Lower extremity edema ALBUMIN, RANDOM URINE W/CREATININE Routine 10/04/2024 9:16 AM EDT Annual physical exam HEMOGLOBIN A1C Routine 10/04/2024 9:16 AM EDT Annual physical exam BI MAMMOGRAM SCREENING TOMOSYNTHESIS BILATERAL Routine 08/16/2024 11:21 AM EDT HEPATITIS C AB W/REFL TO HCV RNA, QN, PCR Routine 03/22/2023 8:23 AM EST Annual physical exam from Last 3 Months or Most Recently Relevant to Health Maintenance Results * (ABNORMAL) C-reactive Protein (01/14/2025 8:27 AM EDT) C Reactive Protein 0.52(H) < or = 0.50 mg/dL [facility] Blood Venous blood specimen / Unknown 01/14/2025 8:27 AM EDT 01/14/2025 11:17 AM EDT us Nahomy Kessler MD LAB BLOOD ORDERAB LES Final Result Performing Organization Address [facility] Co de Phone Number [facility] [address] [place] [address] [phone] * (ABNORMAL) Lipid Panel, Standard (01/14/2025 8:27 AM EDT) Triglycerides 169(H) <150 mg/dL [facility] Comment:Desirable Triglyceri de: less than 150 mg/dLBorderline High Triglyceride 150-199 mg/dLHigh Triglyceride: 200-499 mg/dLVery High Triglyceride: greater than or equal to 5OO mg/dL Cholesterol 217(H) <200 mg/dL [facility] Comment:Desirable Cholestero l: less than 200 mg/dLBorderline High Cholesterol: 200-239 mg/dLHigh Cholesterol: greater than 239 mg/dL LDL Cholesterol Calculated 145(H) <100 mg/dL [facility] Comment:Desirable LDL: less than 100 mg/dLNear Optimal/Above Optimal LDL: 110- 129 mg/dLBorderline High LDL: 130-159 mg/dLHigh LDL: 160-189 mg/dLVery High LDL: greater than or equal to 190 mg/dL HDL Cholesterol 39(L) >40 mg/dL [facility] Comment:Desirable HDL: great er than 40 mg/dL Note: This HDL assay may give artificially low results in patients with liver disease. 01/14/2025 8:27 AM EDT 01/14/2025 11:17 AM EDT us Generic External Data Provider LAB BLOOD ORDERAB LES Final Result Performing Organization Address City/[facility]/ZIP Co de Phone Number [facility] [address] [place] [address] [phone] * (ABNORMAL) Comprehensive Metabolic Panel (01/14/2025 8:27 AM EDT) Sodium 143 135 - 145 mmol/L [facility] Potassium 4.1 3.3 - 5.1 mmol/L [facility] Chloride 109(H) 96 - 108 mmol/L [facility] Carbon Dioxide 29 22 - 29 mmol/L [facility] Anion Gap 9(L) 12 - 20 [facility] Urea Nitrogen (BUN) 8(L) 9 - 16 mg/dL [facility] Creatinine, Serum 0.61 0.5 - 1.4 mg/dL [facility] Estimated Glomerular Filt Rate >60 [facility] Comment:Chronic Kidney Disea se: Estimated GFR < 60 mL/min/1.05l1Rnbxvx Kidney Disease: Estimated GFR < 15 mL/min/1.73m2 Glucose 66 60 - 115 mg/dL [facility] Calcium 9.0 8.4 - 10.2 mg/dL [facility] Bilirubin, Total 0.5 0.0 - 1.0 mg/dL [facility] Aspartate Amino Transferase 32(H) 5 - 31 U/L [facility] Alanine Aminotransferase 14 0 - 31 U/L [facility] Total Protein 6.5 6.5 - 8.0 g/dL [facility] Albumin Level 3.6 3.5 - 5.0 g/dL [facility] Alkaline Phosphatase 98 39 - 117 U/L [facility] Blood Venous blood specimen / Unknown 01/14/2025 8:27 AM EDT 01/14/2025 11:17 AM EDT us Nahomy Kessler MD LAB BLOOD ORDERAB LES Final Result [facility] [address] [place] [address] [phone] * CT Abdomen Pelvis w/o Contrast (11/15/2024 10:28 AM EDT) Anatomical Region Laterality Modality Body, Pelvis, Abdomen Computed T omography 11/15/2024 10:2 8 AM EDT Narrative 11/15/2024 11:56 AM EDT [place] [address] CT Scan Report Signed Patient: Arlette Dias MR#: [id number] : 1945 Acct:[id number] Age/Sex: 79 / F ADM Date: 11/15/24 Loc: HO.ED Attending Dr: Ordering Physician: Sekou North MD Date of Service: 11/15/24 Procedure(s): CT abdomen pelvis wo IV con Accession Number(s): [id number] cc: Sekou North MD; Nahomy Davies MD Report Number: [id number]: Total DLP = 673.00 mGy-cm EXAMINATION: CT [...] Grzegorz Borden MD 11/15/2024 11:53 AM EDT RP Dictated By: Grzegorz Borden MD Signed By: <Electronically signed by Grzegorz Borden MD in OV> 11/15/24 1153 DD/ 1028 TD/TT: 11/15/24 1143 Electrical Manufacturing Technician: Procedure Note Donotuseinterpreter, Image - 11/15/[address] [place] [address] [address] Scan Report Signed Patient: Gifty DiasR#: [id number] : 1945cct:[id number] Age/Sex: 79 / FADM Date: 11/15/24 Loc: .ED Attending Dr: Ordering Physician: Sekou North MD Date of Service: 11/15/24 Procedure(s): CT abdomen pelvis wo IV con Accession Number(s): [id number] cc: Sekou North MD; Nahomy Davies MD Report Number: [id number]: Total DLP = 673.00 mGy-cm EXAMINATION: CT [...] Grzegorz Borden MD 11/15/2024 11:53 AM EDT RP Dictated By: Grzegorz Borden MD Signed By: <Electronically signed by Grzegorz Borden MD in OV> 11/15/24 1153 DD/ 1028 TD/TT: 11/15/24 1143 Electrical Manufacturing Technician: [facility] External Provider IMG CT PROCEDURES Final Result * Culture, Urine, Routine (11/14/2024 9:12 AM EDT) Urine Urine specimen obtained by clean catch procedure / Unknown 11/14/2024 9:12 AM EDT 11/14/2024 5:14 PM EDT Comment:UACC Narrative [facility] - 11/16/2024 10:42 AM EDT Urine Culture No growth. Specimen Source: Urine clean catch Jp Snow MD LAB MICROBIOLOGY - GENERAL ORDER CARLOS Final Result Performing Organization Address City/State/[facility] Co de Phone Number [facility] [address] [place] [phone] * XR Lumbar Spine 2-3 Views (11/14/2024 8:29 AM EDT) Anatomical Region Laterality Modality Spine, L-spine Radiographic Sylvia ging 11/14/2024 8:29 AM EDT Narrative 11/14/2024 9:50 AM EDT [address] [address] XRay Report Signed Patient: Arlette Dias MR#: [id number] : 1945 Acct:[id number] Age/Sex: 79 / F ADM Date: 11/14/24 Loc: HO.HHCX Attending Dr: Jp Snow MD Ordering Physician: JP SNOW MD Date of Service: 11/14/24 Procedure(s): XR lumbar spine 2-3V Accession Number(s): [id number] cc: JP SNOW MD EXAMINATION: XR LUMBOSACRAL [...] Jony Jama MD 11/14/2024 09:47 AM EDT RP Dictated By: Jony Jama MD Signed By: <Electronically signed by Jony Jama MD in OV> 11/14/[address] DD/ 8 TD/TT: 11/14/24 0900 Electrical Manufacturing Technician: Procedure Note Donotuseinterpreter, Image - 11/14/[address] [address] XRay Report Signed Patient: Annmarie DiasaMR#: [id number] : 1945cct:[id number] Age/Sex: 79 / FADM Date: 11/14/24 Loc: HO.HHCX Attending Dr: Jp Snow MD Ordering Physician: JP SNOW MD Date of Service: 11/14/24 Procedure(s): XR lumbar spine 2-3V Accession Number(s): [id number] cc: JP SNOW MD EXAMINATION: XR LUMBOSACRAL [...] OV> 11/14/24 0947 DD/ 08 TD/TT: 11/14/24 0900 Electrical Manufacturing Technician: us Jp Snow MD IMG XR PROCEDURES Edited Result - Final * Vascular US lower extremity venous insufficiency bilateral (11/02/2024 10:47 AM EDT) 11/02/2024 10:4 7 AM EDT Narrative [facility] - 11/02/2024 11:38 AM EDT [place] [address] Ultrasound Report Signed Patient: Arlette Dias MR#: [id number] : 1945 Acct:[id number] Age/Sex: 79 / F ADM Date: 11/02/24 Loc: HO.US Attending Dr: Nahomy Kessler MD Ordering Physician: Nahomy Davies MD Date of Service: 11/02/24 Procedure(s): US venous insuf bilat Accession Number(s): [id number] cc: Nahomy Davies MD EXAMINATION: US LOWER [...] Xander Hurt MD 11/02/2024 11:36 AM EDT RP Dictated By: Xander Castellanos MD Signed By: <Electronically signed by Xander Villegas MD in OV> 11/02/24 1136 DD/ 1047 TD/TT: 11/02/24 1118 Electrical Manufacturing Technician: Procedure Note Donotuseinterpreter, Image - 11/02/2024 [place] [address] Ultrasound Report Signed Patient: Clarisa Dias#: MM [id number] : [birth year]Acct:[id number] Age/Sex: 79 / FADM Date: 11/02/24 Loc: .US Attending Dr: Nahomy Kessler MD Ordering Physician: Nahomy Davies MD Date of Service: 11/02/24 Procedure(s): US venous insuf bilat Accession Number(s): [id number] cc: Nahomy Davies MD EXAMINATION: US LOWER [...] Xander Hurt MD 11/02/2024 11:36 AM EDT RP Dictated By: Xander Castellanos MD Signed By: <Electronically signed by Xander Villegas MDin OV> 11/02/24 1136 DD/ 1047 TD/TT: 11/02/24 1118 Electrical Manufacturing Technician: us Nahomy Kessler MD CV VASCULAR PROCE JEANNE Edited Result - Final [facility] [address] [place] [address] [phone] * Albumin, Random Urine W/Creatinine (10/04/2024 9:16 AM EDT) Creatinine, Urine 111.46 mg/dL [facility] Microalbumin Urine 31.0 mg/L [facility] Microalbum Creatinine Ratio Ur 27.8 <30 ug/mg cr [facility] Comment:Albumin/Creatinine R atio Reference Ranges: Normal: < 30 ug/mg creatinine Microalbuminuria: 30 - 300 ug/mg creatinineClinical Albuminuria: > 300 ug/mg creatinine Urine (Urine, Random) 10/04/2024 9:16 AM EDT 10/04/2024 11:22 AM EDT us Nahomy Kessler MD LAB URINE ORDERAB LES Final Result Performing Organization Address [facility] Co de Phone Number [facility] [address] [place] [phone] * (ABNORMAL) Hemoglobin A1c (10/04/2024 9:16 AM EDT) Hemoglobin A1c 7.1(H) <6.0 % [facility] Comment:Hemoglobin A1C Refer ence Range Adults: 4.8 - 6.0 % Non diabetic: < 6.0 % Goal: < 7.0 %Additional Action Suggested: > 8.0 %Note: Hemoglobin A1c results are invalid for patients with abnormal amounts of HbF. Blood transfusions may impact the HbA1c concentration in the patient sample. Estimated Average Glucose 157 mg/dL [facility] Comment:eAG = Estimated ave rage glucose which is %A1C expressed asaverage glucose, using the formula of the U4U-NyaftrsTjqzrax Glucose study (ADAG), Diabetes Care, Vol.31,#8,Nov. 2007 Blood Venous blood specimen / Unknown 10/04/2024 9:16 AM EDT 10/04/2024 11:27 AM EDT us Nahomy Kessler MD LAB BLOOD ORDERAB LES Final Result Performing Organization Address [facility]/ZIP Co de Phone Number [facility] [address] [place] [phone] * BI Mammogram Screening Tomosynthesis Bilateral (08/16/2024 11:21 AM EDT) Anatomical Region Laterality Modality Breast Bilateral Mammography 08/16/2024 11:2 1 AM EDT Narrative 08/24/2024 3:17 PM EDT [facility] [address] [place] [address] Mammography Report Signed Patient: Arlette Dias MR#: [id number] : 1945 Acct:[id number] Age/Sex: 79 / F ADM Date: 08/16/24 Loc: HOHowieMAMMO Attending Dr: Nahomy Kessler MD Ordering Physician: Nahomy Davies MD Re sults: 1Negative Date of Service: 08/16/24 Follow Up: 1 Year From Orig inal Mammogram Procedure(s): MM tomosynthesis screening BI Accession Number(s): [id number] cc: Nahomy Davies MD EXAMINATION: MM SCREENING [...] Sheryl Marte DO 08/24/2024 03:13 PM EDT Dictated By: Sheryl Marte DO Signed By: <Electronically signed by Sheryl Marte DO in OV> 08/24/24 1513 DD/ 1121 TD/TT: 08/16/24 1130 Electrical Manufacturing Technician: Procedure Note Donotuseinterpreter, Image - 08/27/2024 [facility] [address] [place] [address] Dr. [place], [place]EN[place] [address] Mammography Report Signed Patient: Clarisa Dias#: MM [id number] : 1945cct:[id number] Age/Sex: 79 / FADM Date: 08/16/24 Loc: HO.MAMMO Attending Dr: Nahomy Kessler MD Ordering Physician: Nahomy Davies sults: 1Negative Date of Service: 08/16/24Follow Up: 1 Year From Orig inal Mammogram Procedure(s): MM tomosynthesis screening BI Accession Number(s): [id number] cc: Nahomy Davies MD EXAMINATION: MM SCREENING [...] Sheryl Marte DO 08/24/2024 03:13 PM EDT Dictated By: Sheryl Marte DO Signed By: <Electronically signed by Sheryl Marte DO in OV> 08/24/24 1513 DD/ 1121 TD/TT: 08/16/24 1130 Electrical Manufacturing Technician: us Nahomy Kessler MD IMG BI PROCEDURES Edited Result - Final * Hepatitis C Antibody with Reflex to HCV, RNA, Quantitative, Real-Time PCR (03/22/2023 8:23 AM EST) Hepatitis C Antibody Nonreactive Nonreactive [facility] Comment:Antibodies to HCV no t detected; does not exclude early acuteHCV infection. Blood Venous blood specimen / Unknown 03/22/2023 8:23 AM EST 03/22/2023 11:12 AM EST Nahomy Kessler MD LAB BLOOD ORDERAB LES Final Result [facility] [address] [place] [address] [phone] from Last 3 Months or Most Recently Relevant to Health Maintenance Insurance [facility] OPTIONS (HMO D-SNP) RUY BARROS [id number] Care Teams Ship Manager Relationship Specialty Start Date End Date Nahomy Davies MD [address] [place] [address] PCP - General [facility]
--- OUTSIDE RECORDS SUMMARY | 2025-01-24 14:01 | XMS_ITS | Encounter Summary ---
Author Organization [employer] Address 75 [facility] [address] [place] [address] Care Team Providers Care Elevator Constructor Supervisor Name Role Phone Nahomy Davies MD Primary Care Pro vider Reason for Visit * Reason Onset Date Comments Medication Question 03/25/2023 Encounter Details Date Type Department Care Team ([facility] Contact Info) Description 03/25/2023 Telephone [facility] [address] [place] [address] Nahomy Davies MD [address] [place] [address] Medication Question Social History Tobacco Use Types [...] Miscellaneous Notes * Telephone Encounter - Karmen Jesus - 03/25/2023 10:42 AM EST Tc from pharmacy requesting a call back or resend of the script for FreeStyle lancets with clarifications on directions. [phone] ext [phone] documented in this encounter Plan of Treatment Upcoming Encounters Date Type Department Care Team (Late st Contact Info) Description 03/26/2025 9:15 AM EST Office Visit [facility] [address] [place] [phone] Nahomy Davies MD [address] [place] [phone] documented as of this encounter Visit Diagnoses Not on filedocumented in this encounter Additional Health Concerns Assessment Noted Time PHQ-9 Depression Total Score: 0 04/23/19 9:18 AM EST documented as of this encounter Care Teams Elevator Constructor Supervisor Relationship Specialty Start Date End Date Nahomy Davies MD [address] [place] [phone] PCP - General Internal Medicine [facility]23 [facility] documented as of this encounter
--- OUTSIDE RECORDS SUMMARY | 2025-01-24 14:01 | XMS_ITS | Encounter Summary ---
Author Organization [employer] Address 75 [facility] 7t [place] [address] Care Team Providers Care Wind Turbine Design Engineer Name Role Phone Nahomy Davies MD Primary Care Pro vider Encounter Details Date Type Department Care Team ([facility] st Contact Info) Description 10/19/2024 Orders Only [facility] MEDICINE [address] [place] [address] Nahomy Davies MD [address] [place] [address] Social History Tobacco Use Types Packs/Day Years [...] Description 03/26/2025 9:15 AM EST Office Visit [facility] MED[facility]INE [address] [place] [phone] Nahomy Davies MD [address] [place] [phone] documented as of this encounter Visit Diagnoses Not on filedocumented in this encounter Additional Health Concerns Assessment Noted Time PHQ-9 Depression Total Score: 0 09/27/19 2:19 PM EDT documented as of this encounter Care Teams Wind Turbine Design Engineer Relationship Specialty Start Date End Date Nahomy Davies MD [address] [place] [phone] PCP - General Internal Medicine 01/13/23 [facility] 11/17/24 documented as of this encounter
--- OUTSIDE RECORDS SUMMARY | 2025-01-24 14:01 | XMS_ITS | Encounter Summary ---
Author Organization [employer] Address 75 [facility] 7t [place] [address] Care Team Providers Care Excelsior Picker Name Role Phone Nahomy Davies MD Primary Care Pro vider Reason for Visit * Reason Comments Med Refill Encounter Details Date Type Department Care Team ([facility] st Contact Info) Description 07/23/2023 Refill [facility]EDS [address] [place], [place] [phone] Suyapa Doyle MD [address] [place] [address] Shortness of breath Social History Tobacco Use [...] Description 03/26/2025 9:15 AM EST Office Visit [facility] MEDICINE [address] [place] [address] Nahomy Davies MD [address] [place] [phone] documented as of this encounter Visit Diagnoses Diagnosis Shortness of breath documented in this encounter Additional Health Concerns Assessment Noted Time PHQ-9 Depression Total Score: 0 04/23/19 23 9:18 AM EST documented as of this encounter Care Teams Excelsior Picker Relationship Specialty Start Date End Date Nahomy Davies MD [address] [place] [phone] PCP - General Internal Medicine 01/13/23 [facility] 11/17/24 documented as of this encounter
--- OUTSIDE RECORDS SUMMARY | 2025-01-24 14:01 | XMS_ITS | Encounter Summary ---
Author Organization [employer] Address 75 [facility] 7 [place] [address] Care Team Providers Care Special Collections Librarian Name Role Phone Nahomy Davies MD Primary Care Pro vider Reason for Visit * Reason Comments Med Refill Encounter Details Date Type Department Care Team ([facility] st Contact Info) Description 01/23/2025 Refill [facility] MEDICINE [address] [place] [address] Nahomy Davies MD [address] [place] [address] Type 2 diabetes mellitus without complication, without long-term current use of insulin (HCC); Osteopenia determined by x-ray; Acquired hypothyroidism; Sleep disturbance; Essential hypertension Social History Tobacco Use Types [...] your housing situation today? I have chiara ace 08/28/[address] you li [...] 03/26/2025 9:15 AM EST Office Visit [facility] MEDICINE [address] [place] [phone] Nahomy Davies MD [address] [place] [phone] documented as of this encounter Visit Diagnoses Diagnosis Type 2 diabetes mellitus without complication, without long-term current use of insulin (HCC) Osteopenia determined by x-ray Acquired hypothyroidism Unspecified hypothyroidism Sleep disturbance Unspecified sleep disturbance Essential hypertension Unspecified essential hypertension documented in this encounter Additional Health Concerns Assessment Noted Time PHQ-9 Depression Total Score: 0 09/27/19 2:19 PM EDT documented as of this encounter Care Teams Special Collections Librarian Relationship Specialty Start Date End Date Nahomy Davies MD [address] [place] [phone] PCP - General Internal Medicine 01/13[facility]23 [facility] documented as of this encounter
--- OUTSIDE RECORDS SUMMARY | 2025-01-24 14:01 | XMS_ITS | Encounter Summary ---
Author Organization [employer] Address 75 [facility] 7 [place] [address] Care Team Providers Care Wax Pumper Name Role Phone Nahomy Davies MD Primary Care Pro vider Reason for Visit * Reason Comments Med Refill Encounter Details Date Type Department Care Team ([facility] st Contact Info) Description 12/26/[address] [facility] MEDICINE [address] [place] [address] Nahomy Davies MD [address] [place] [address] Iron deficiency anemia, unspecified iron deficiency anemia [...] Description 03/26/2025 9:15 AM EST Office Visit [facility] MEDICINE [address] [place] [phone] Nahomy Davies MD [address] [place] [phone] documented as of this encounter Visit Diagnoses Diagnosis Iron deficiency anemia, unspecified iron deficiency anemia type documented in this encounter Additional Health Concerns Assessment Noted Time PHQ-9 Depression Total Score: 0 09/27/19 2:19 PM EDT documented as of this encounter Care Teams Wax Pumper Relationship Specialty Start Date End Date Nahomy Davies MD [address] [place] [phone] PCP - General Internal Medicine 01/13/23 [facility] 11/17/24 documented as of this encounter
--- OUTSIDE RECORDS SUMMARY | 2025-01-24 14:01 | XMS_ITS | Encounter Summary ---
Author Organization [employer] Address 75 [facility] [address] [place] [address] Care Team Providers Care Credentialing Coordinator Name Role Phone Nahomy Davies MD Primary Care Pro vider Reason for Visit * Reason Comments Med Refill Encounter Details Date Type Department Care Team ([facility] st Contact Info) Description 07/10/2024 Refill [facility] MED[facility]INE [address] [place] [address] Nahomy Davies MD [address] [place] [address] Iron deficiency anemia, unspecified iron deficiency anemia [...] 9:15 AM EST Office Visit [facility] MEDICINE [address] [place] [phone] Nahomy Davies MD [address] [place] [address] documented as of this encounter Visit Diagnoses Diagnosis Iron deficiency anemia, unspecified iron deficiency anemia type documented in this encounter Additional Health Concerns Assessment Noted Time PHQ-9 Depression Total Score: 0 04/23/19 9:18 AM EST documented as of this encounter Care Teams Credentialing Coordinator Relationship Specialty Start Date End Date Nahomy Davies MD [address] [place] [phone] PCP - General Internal Medicine 01/13/23 [facility] 11/17/24 documented as of this encounter
--- OUTSIDE RECORDS SUMMARY | 2025-01-24 14:01 | XMS_ITS | Encounter Summary ---
Author Organization [employer] Address 75 [facility] 7t [place] [address] Care Team Providers Care Cotton Weigher Operator Name Role Phone Nahomy Davies MD Primary Care Pro vider Reason for Visit * Reason Comments Med Refill Encounter Details Date Type Department Care Team ([facility] st Contact Info) Description 06/06/2023 Refill [facility] MEDICINE [address] [place] [address] Nahomy Davies MD [address] [place] [address] Social History Tobacco Use Types Packs/Day Years [...] Description 03/26/2025 9:15 AM EST Office Visit [facility] MEDICINE [address] [place] [address] Nahomy Davies MD [address] [place] [phone] documented as of this encounter Visit Diagnoses Not on filedocumented in this encounter Additional Health Concerns Assessment Noted Time PHQ-9 Depression Total Score: 0 04/23/19 23 9:18 AM EST documented as of this encounter Care Teams Cotton Weigher Operator Relationship Specialty Start Date End Date Nahomy Davies MD [address] [place] [address] [phone] PCP - General Internal Medicine 01/13/23 [facility] 11/17/24 documented as of this encounter
--- OUTSIDE RECORDS SUMMARY | 2025-01-24 14:01 | XMS_ITS | Encounter Summary ---
Author Organization [employer] Address 75 [facility] 7t [place] [address] Care Team Providers Care System Validation Engineer Name Role Phone Nahomy Davies MD Primary Care Pro vider Reason for Visit * Reason Comments Med Refill Encounter Details Date Type Department Care Team ([facility] st Contact Info) Description 06/13/2023 Refill [facility] MEDICINE [address] [place] [address] Nahomy Davies MD [address] [place] [address] Social History Tobacco Use Types Packs/Day Years [...] Description 03/26/2025 9:15 AM EST Office Visit [facility] MEDICINE [address] [place] [phone] Nahomy Davies MD [address] [place] [phone] documented as of this encounter Visit Diagnoses Not on filedocumented in this encounter Additional Health Concerns Assessment Noted Time PHQ-9 Depression Total Score: 0 04/23/19 23 9:18 AM EST documented as of this encounter Care Teams System Validation Engineer Relationship Specialty Start Date End Date Nahomy Davies MD [address] [place] [address] [phone] PCP - General Internal Medicine 01/13/23 [facility] 11/17/24 documented as of this encounter
--- OUTSIDE RECORDS SUMMARY | 2025-01-24 14:01 | XMS_ITS | Encounter Summary ---
Author Organization [employer] Address 75 [facility] [address] [place] [address] Care Team Providers Care Mold Making Supervisor Name Role Phone Nancy Larose FABRIC WORKER FITTER Primary Care Provider Nahomy Wilkins MD Primary Care Pro vider Reason for Visit * Reason Comments Med Refill Encounter Details Date Type Department Care Team ([facility] st Contact Info) Description 11/10/2022 Refill [facility] MEDICINE [address] [place], [place] [phone] Nancy Larose FNP Type 2 diabetes mellitus without complication, without long-term current use of insulin (CMS/[facility]); Sleep disturbance; Constipation, unspecified constipation [...] Description 03/26/2025 9:15 AM EST Office Visit [facility] MEDICINE [address] [place] [address] Nahomy Davies MD [address] [place] [address] documented as of this encounter Visit Diagnoses Diagnosis Type 2 diabetes mellitus without complication, without long-term current use of insulin ([facility]) Sleep disturbance Unspecified sleep disturbance Constipation, unspecified constipation type Essential hypertension Unspecified essential hypertension Gastroesophageal reflux disease without esophagitis Esophageal reflux Cobalamin deficiency Other B-complex deficiencies Osteopenia determined by x-ray documented in this encounter Additional Health Concerns Assessment Noted Time PHQ-9 Depression Total Score: 0 04/23/19 9:18 AM EST documented as of this encounter Care Teams Mold Making Supervisor Relationship Specialty Start Date End Date Nancy Larose FNP PCP - General Family Medicine 12/08/21 01/12/23 Nahomy Davies MD [address] [place] [phone] PCP - General Internal Medicine 01/13/23 [facility] 11/17/24 documented as of this encounter
--- OUTSIDE RECORDS SUMMARY | 2025-01-24 14:01 | XMS_ITS | Encounter Summary ---
Author Organization [employer] Address 75 [facility] [address] [place] [address] Care Team Providers Care Business Intelligence Consultant Name Role Phone Nahomy Davies MD Primary Care Pro vider Reason for Visit * Reason Comments Med Refill Encounter Details Date Type Department Care Team ([facility] st Contact Info) Description 03/21/2024 Refill [facility] PEDS [address] [place], [place] [phone] Nahomy Davies MD [address] [place], [place] [phone] Type 2 diabetes mellitus without complication, without long-term current use of insulin (CMS/HCC); Type 2 diabetes mellitus without complication, unspecified whether continuous churn buttermaker insulin use (CMS/HCC); Iron deficiency anemia, unspecified [...] Description 03/26/2025 9:15 AM EST Office Visit [facility] MEDICINE [address] [place] [address] Nahomy Davies MD [address] [place] [phone] documented as of this encounter Visit Diagnoses Diagnosis Type 2 diabetes mellitus without complication, without long-term current use of insulin (HCC) Type 2 diabetes mellitus without complication, unspecified whether halfway insulin use Iron deficiency anemia, unspecified iron deficiency anemia type Acquired hypothyroidism Unspecified hypothyroidism Sleep disturbance Unspecified sleep disturbance Osteopenia determined by x-ray documented in this encounter Additional Health Concerns Assessment Noted Time PHQ-9 Depression Total Score: 0 04/23/19 23 9:18 AM EST documented as of this encounter Care Teams Business Intelligence Consultant Relationship Specialty Start Date End Date Nahomy Davies MD [address] [place] [phone] PCP - General Internal Medicine [facility] documented as of this encounter
== END 2025-01-24 11:13 | disposition home or self-care (01) ==
LOC: HO.PMC 11:00
PROVIDERS: PCP Student in an Organized Health Care Education/Training Program; Visit Provider Nurse Practitioner Family
DX: M47.816 Spondylosis without myelopathy or radiculopathy, lumbar region (principal); M53.3 Sacrococcygeal disorders, not elsewhere classified
CPT/HCPCS: 99213

== ENCOUNTER → 2025-01-24 11:00 | Outpatient (BNVA) | payer OTHER, SELFPAY | PROVIDERS: PCP Student in an Organized Health Care Education/Training Program; Visit Provider Nurse Practitioner Family | DX: M47.816 Spondylosis without myelopathy or radiculopathy, lumbar region (principal); I10 Essential (primary) hypertension | CPT/HCPCS: 99212 ==

== ENCOUNTER 2025-02-19 10:57 | Outpatient (REF) | payer OTHER, SELFPAY ==
--- OUTSIDE RECORDS SUMMARY | 2025-02-19 13:39 | XMS_ITS | Data Portability ---
Author Organization [facility] [employer] [facility] Address [address] [place] [address] Care Team Providers Care Kindergarten Teacher Assistant Name Role Phone HIM CCA OTHER Assessment No assessment recorded. Plan of Treatment Reminders Order Date Submit Date Provider Last Modified By Organization Details Last Modified Time Details Appointments None record ed. Lab None record ed. Referral None record ed. Procedures None record ed. Surgeries None record ed. Imaging None record ed. Medication Orders None record ed. Patient TargetsNo targets recorded. Patient InstructionsNo instructions recorded. Reason for Referral None Reported. Medical Equipment None Reported. Allergies Allergen ID Allergen Name Allergen Category Reaction Reaction Severity Criticality Documentation Date Start Date Code Code System Note Provider Name and Address Organization Details Recorded Time 24195 Product containin g penicilli n (product) medicatio n Not available Not available Not available 11/18/2024 78086 8001 SNOMED Not Available [employer] - production 10:45:02 Medications Name Sig Start Date Stop Date Status Note LastModified by Organization Details LastModified Time latanoprost 0.005 % eye drops INSTILL 1 DROP INTO BOTH EYES EVERY DAY AT NIGHT active Not Available Not Available No t Available atorvastatin 40 mg tablet TAKE 1 TABLET BY MOUTH EVERY DAY AT BEDTIME *REPLACES SIMVASTATIN * active Not Available Not Available No t Available prednisone 10 mg tablet TAKE 4 TABLETS BY MOUTH ONCE DAILY FOR 5 DAYS, 3 TABLETS ONCE DAILY FOR 5 DAYS, 2 TABLETS ONCE DAILY FOR 5 DAYS, 1 TABLET DAILY FOR 5 DAYS THEN 1/2 TABLET ONCE DAILY FOR 5 DAYS active Not Available Not Available N ot Available azithromycin 250 mg tablet TAKE 2 TABLETS BY MOUTH ON DAY 1, THEN TAKE 1 TABLET DAILY ON DAYS 2-5 active Not Available Not Available No t Available senna 8.6 mg tablet TAKE 2 TABLETS BY MOUTH DAILY AT BEDTIME FOR CONTSIPATIO N active Not Available Not Available No t Available acetaminophe n 500 mg tablet TAKE 2 TABLETS EVERY 8 HOURS BY ORAL ROUTE FOR 30 DAYS. active Not Available Not Available No t Available omeprazole 20 mg capsule,tricia yed release TAKE 1 CAPSULE BY MOUTH EVERY DAY active Not Available Not Available No t Available celecoxib 100 mg capsule TAKE 1 CAPSULE BY MOUTH EVERY DAY active Not Available Not Available No t Available insulin lispro (U-100) 100 unit/mL subcutaneous pen INJECT SUBCUTANEOU SLY THREE TIMES DAILY WITH MEALS PER SLIDING SCALE 150-200 = 2 UNITS, 201-250 = 4 UNITS, 251-300 = 6 UNITS, 301-350 = 8 UNITS active Not Available Not Available No t Available Combigan 0.2 %-0.5 % eye drops INSTILL 1 DROP INTO BOTH EYES TWICE A DAY active Not Available Not Available Not Available guaifenesin ER 600 mg tablet, extended release 12 hr TAKE 1 TABLET BY MOUTH TWICE DAILY FOR 7 DAYS. DO NOT BREAK, CRUSH, DISSOLVE OR CHEW. active Not Available Not Available No t Available FreeStyle Anthony 3 Weippe 1 EACH ONCE PER DAY. USE DIRECTED FOR CGM active Not Available Not Available No t Available FreeStyle Anthony 3 Plus Sensor device APPLY 1 EVERY 15 DAYS DIRECTED FOR CGM active Not Available Not Available No t Available Vitals Date Recorded Respiratory rate Heart rate Oxygen saturation Oxygen saturation in Arterial blood by Pulse oximetry Body temperature Respiratory rate Heart rate Oxygen saturation Oxygen saturation in Arterial blood by Pulse oximetry Body temperature Systolic And Diastolic Systolic And Diastolic Provider Name and Address Organization Details Last Updated DateTime 5 14 /min 69 /min 94 % 94 % 97.9 [degF] 14 /min 69 /min 94 % 94 % 97.9 [degF] 145/73 mm[Hg] 145/73 mm[Hg] Not Available [employer] - production 5 11:26:33 Social History None recorded. Functional Status None recorded. Mental Status None recorded. Family History Nothing Reported. Medical History No medical history recorded. Gynecological HistoryNo gynecological history recorded. Obstetrics History GPAL:G 0 P 0 0 0 0 Past Encounters Encounter ID Performer Location Encounter Start Date Encounter Closed Date Diagnosis/Indication Diagnosis SNOMED-CT Code Diagnosis ICD10 Code Diagnosis IMO Codes Diagnosis Note [id number] NORTH MCLEAN MD [facility] ED Medical [facility] [address] [place] [address] 11/18/2024 11:23:59 11/19/2024 11:23:56 Sciatica 88591932 M54.31 [id number] Evaluation in the field was performed by my slate splitting supervisor colleague, as noted above, I provided real-time direction and supervisio n for this visit. The evaluation revealed 79-year-ol d female with a history of type 2 diabetes mellitus and chronic back pain presents with right-side d lower back pain radiating to the groin for 1 week. Family reports prior similar episodes that responded to corticoste roid injections . Family has contacted the PCP office but has not yet received a response. She denies urinary symptoms, hematuria, fever, chills, chest pain, shortness of breath, nausea, vomiting, lower extremity weakness, or saddle anesthesia . She took acetaminop hen 1 g approximat willy 5.5 hours prior to evaluation and ibuprofen 400 mg approximat willy 2.5 hours prior, with partial relief. She has been using a lidocaine patch and heating pad.Per family, the patient had a right hip X-ray and CT on 11/14/24 for the same issue, reportedly normal. Vital Signs:BP 145/73 mmHg, HR 69 bpm, RR 14/min, SpO2 94% on room air, Temp 97.9 FExam:Gene ral: AAO 3, in no acute distressLu ngs: Clear to auscultati on bilaterall yMusculosk eletal: Right-side d lower back tenderness ; no hip tenderness Neuro: No lower extremity weakness; gait not assessedNo focal neurologic al deficitsAl lergies: Reviewed Impression :Acute exacerbati on of chronic low back pain with right-side d radiation to groin. No red flag symptoms on history or exam. Imaging from 11/14 reportedly normal. Etiology could include musculoske letal strain, facet arthropath y, or referred pain; renal/visc eral causes less likely given absence of urinary symptoms and negative recent imaging. Plan:Oumar nue supportive measures: lidocaine patch, heating pad, activity as tolerated. Not a candidate for Ketorolac since had taken Ibuprofen ~ 2 hrs prior to the visitMay continue acetaminop hen (max 3 g/day). Recommend not continuing ibuprofen given ageRed flag symptoms discussed develop: fever, progressiv e weakness, numbness, incontinen ce, saddle anesthesia , or severe unrelentin g pain.Advis ed PCP follow-up for considerat ion of referral to pain management or orthopedic s; may be candidate for repeat steroid injection if previously effective. Primary care, consider Dispositio n: We discussed the diagnostic uncertaint y of home visits and the risk associated with this. In this case, the patient and I felt this to be an acceptable and reasonable amount of risk given the benefit of avoiding an ED visit. We discussed the need to seek care urgently/e mergently in the setting of any new or worsening serious symptoms, particular ly fever, progressiv e weakness, numbness, incontinen ce, saddle anesthesia , or severe unrelentin g pain. Health Concerns Section Related Observation LastModified by Organization Detai ls LastModified Time None Recorded Concern Status LastModified by Organization Details LastModified Time None Recorded Advance Directives Directive None Recorded Payers Insurance Date Sequence Insurance Name Policy Number Policy Victor Covered Member ID Victor Member ID Guarantor Name 12/09/2024 1 [facility] - DOS ON OR AFTER 2022 - DUAL ELIGIBLE - SKILLED NURSING OPTIONS AND ONE CARE (MEDICARE REPLACEMENT/ADV ANTAGE - HMO) Arlette Sampson [id number] Arlette Sampson Notes Date Note Type Note Provider Name and Address Organization Details Recorded Time 11/18/2024 text/html ROS as noted in the HPI CRC Nurse Triage Notes (Adan Chen): Reason For Request: Patient has lower back pain Denies: Falls with head strike and LOC Falls from a standing position, no LOC, patient is amnestic to the event Falls with isolated injury and deformity noted to limb Falls with inability to move post fall Cool extremities after fall or injury Chief Complaints: Back Pain PMH: Diabetes Mellitus Type 2, Chronic Back Pain PMH Reviewed at 11/18/2024:44 Allergies Reviewed at 11/18/2024:44 Comments: 79 y.o female complains of Back Pain x 1 week Caregiver reports the pt is feeling unwell with lower back - History of Sciatica - Pain is radiating from lower back to right groin Denies fever - Denies nausea and vomiting Reports taking Advil and Tylenol with some relief Wellness check requested I provided information on the mobile health provider response time and advised the patient and/or caregiver to monitor reported signs and symptoms. I discussed the warning signs of when to seek emergency care. ................... ................... ................... ................... ................... ................... ................... ........ Strategic Analyst Note From Jp Roldan: This 79-year-old female with a history including [...] and ibuprofen. Patient denies any new injuries, paresthesia, neurological changes, loss of bowel or bladder function, hematuria. Patient states she contacted her PCPs office and is waiting to hear back. Allergy to PCN. Patient presents awake and alert, in no acute distress and speaking full sentences. Her vital signs are reasonably stable and she is afebrile. Nonfocal [...] and reasonable amount of risk given the benefit of avoiding an ED visit. I provided education [...] questions and are agreeable to this plan. ................... ................... ................... ................... ................... ................... ................... ........ [facility] Consulted: oNrth Mclean ................... ................... ................... ................... ................... ................... ................... ........ Disposition: Fulfilled NORTH MCLEAN MD [address] [facility],[address] [facility], [place], [address], [employer] - [employer] BiomedicalELVIE REGALADO 11/18/2024 11:56:34 OBGyn Episode No OBEpisode recorded.
== END 2025-02-19 10:58 | disposition home or self-care (01) ==
LOC: HO.LAB 10:57
PROVIDERS: PCP Student in an Organized Health Care Education/Training Program; Referring Provider Student in an Organized Health Care Education/Training Program; Visit Provider Registered Nurse
DX: G44.40 Drug-induced headache, not elsewhere classified, not intractable (principal); G44.209 Tension-type headache, unspecified, not intractable; G31.9 Degenerative disease of nervous system, unspecified; R25.1 Tremor, unspecified; Z79.899 Other long term (current) drug therapy; Z79.82 Long term (current) use of aspirin
CPT/HCPCS: 36415; 85652; 86140; 99212

== ENCOUNTER 2025-02-19 10:57 | Outpatient (AMB) | payer OTHER, SELFPAY ==
--- NOTE | 2025-02-19 10:58 | A.OFFVIS_ITS ---
Intake Visit Reasons: 6mnth Support Services Manager Required: Yes Support Services Manager Services: Support Services Manager Offered & Declined (family to translate) Accompanied by: Family/Other Allergies lisinopril Allergy (Intermediate, Verified 02/19/25 11:25) itching Penicillins Allergy (Intermediate, Verified 02/19/25 11:25) rash/hives black pepper Allergy (Mild, Verified 02/19/25 11:25) Unknown fluticasone (From Flonase) Allergy (Mild, Verified 02/19/25 11:25) Unknown Medication List - Last Reconciled 02/19/25 by Genesis Kinsey CNP acetaminophen 1,000 mg (2 x 500 mg) PO Q8H PRN albuterol sulfate 90 mcg/actuation inhalation alcohol swabs (Alcohol Prep Pads) pad topical aspirin 81 mg PO DAILY atorvastatin (Lipitor) 80 mg PO BEDTIME 30 days blood pressure test kit-large As directed blood sugar diagnostic (FreeStyle Test strips) As directed diazepam 2 mg PO BEDTIME PRN ezetimibe (Zetia) 10 mg PO DAILY flash glucose sensor (FreeStyle Anthony 2 Sensor kit) As directed glipizide 2.5 mg PO DAILY glucose grams PO PRN ibuprofen 400 mg PO Q8H PRN insulin glargine (Lantus Solostar U-100 Insulin) 18 units subcut BEDTIME lancets (FreeStyle Lancets) As directed Levoxyl (levothyroxine) 75 mcg PO DAILY NS lidocaine 5% 1 patch topical DAILY losartan-hydrochlorothiazide 50-12.5 mg 1 tab PO DAILY metformin ER 1,000 mg PO BID metoprolol succinate ER 50 mg PO DAILY omeprazole 20 mg PO DAILY pen needle, diabetic (Unifine Pentips) As directed pregabalin (Lyrica) 100 mg PO BID primidone 50 mg orally 1 tablet in the morning and 2 tablets at bedtime; 30 days sitagliptin phosphate (Januvia) 50 mg PO DAILY HPI Comments Details: 79-year-old woman with HTN, DM, and hand tremor. She was doing regular. Tremor was stable with primidone. No medication side effects. No difficulty eating or drinking. She was walking with cane, no falls. She was complaining of headaches for the last few months. Pain could be all over head, throbbing-type. No photophobia or sonophobia. She was taking Tylenol everyday for last few months for the headaches. She also was complaining of bumps on her head that had been there for many months. COUNTS INCLUDE 234 BEDS AT THE [facility] Medical History (Updated 02/19/25 @ 16:05 by Genesis Kinsey CNP) Cerebellar atrophy Numbness and tingling Tremor Tubular adenoma of colon Chronic restrictive lung disease Insomnia On beta anish at home History of COVID-19 Asthma Chronic constipation Broken arm CAD (coronary artery disease) HTN (hypertension) Hyperlipidemia Diabetes mellitus Dyspnea Dysphagia Non-toxic multinodular goiter Hypothyroidism Surgical History H/O thyroidectomy History of surgery Hx of elbow surgery History of surgery on arm Hx of cholecystectomy History of partial hysterectomy Hx of cataract surgery History of tubal ligation Hx of tonsillectomy History of carpal tunnel release Hx of colonoscopy Family History Father Throat cancer Heart disease CVD (cardiovascular disease) Mother Stomach cancer Type 2 diabetes mellitus Arthritis of knee Hypertension Social History Household Members: None Household Members Other:: self Housing: Apartment Are you a primary manager intensive care to a significant other at home: No Do you presently have visiting nurse or other home services: No Alcohol intake: never Patient Tobacco Use Status: Never used Tobacco Second Hand Smoke Exposure: No Advance Directives Date on File: 11/15/24 service: No Current occupational status: retired Current occupation: right handed Review of Systems Const Denies chills, Denies daytime sleepiness, Reports difficulty sleeping, Denies fatigue, Denies fever(s), Denies frequent falls, Denies headache(s), Denies increased appetite, Denies poor appetite, Denies snoring, Denies weakness, Denies weight gain and Denies weight loss Eyes Denies loss of vision ENT Denies vertigo, Denies dizziness and Denies headache(s) Card Denies chest pain at rest, Denies chest pain with activity, Denies syncope, Denies leg edema and Denies palpitations Resp Denies snoring GI Denies constipation, Denies heartburn, Denies diarrhea and Denies nausea Denies urinary frequency, Denies urinary incontinence and Denies urinary urgency Musc Denies abnormal gait, Denies numbness and Denies tingling Skin/Breast Denies dry skin and Denies rash Neuro Denies abnormal gait, Denies vertigo, Denies dizziness, Denies syncope, Denies frequent falls, Denies headache(s), Denies lack of coordination, Denies loss of vision, Denies memory loss, Denies numbness, Denies restless legs, Denies seizure-like activity, Denies tingling, Denies paresthesias, Reports tremor(s) and Denies weakness Psych Denies anxiety, Denies depression, Denies auditory hallucinations, Denies memory loss, Denies visual hallucinations and Denies suicidal ideation Endo Denies fatigue and Denies palpitations Physical Exam Const Other: General Appearance:? normal, in no acute distress. Skin:? no rashes, no significant birthmarks. Heart:? S1, S2 normal, no murmurs. Lungs:? clear anteriorly and posteriorly. Extremities:? no edema. Psych:? alert, oriented, cognitive function intact, cooperative with exam. Neuro Other: Mental Status:?Normal attention, orientation, memory and affect.? Cranial Nerves:?Pupils are equal, round and reactive to light. External occular muscles are intact. Visual og are full. Face is symmetrical. Facial sensations are normal. Tongue is midline. Palate elevates symmetrically. Shoulder shrugging is normal. Hearing to bedside conversation is normal. Sensory Exam:?....? Coordination:?No ataxia,?no titubation.? Gait Exam: Cautious with cane. Cerebellar Signs:?Mild bilateral finger to nose ataxia, R > L. Extrapyramidal System:?No tremor, rigidity with normal facial expressions.? Pronator Drift:?Not present.? Involuntary Movements:?Moderate tremor in outstretched R hand, mild tremor in outstretched L hand. No tremor while she was using her hands to fix her dress or put shoes on/off. Speech:?Normal.? Results Reviewed Results Reviewed: [address] [address] Magnetic Resonance Report Signed Patient: Arlette Dias MR#: [id number] : 1945 Acct:[id number] Age/Sex: 79 / F ADM Date: 10/20/24 Loc: HO.MRI Attending Dr: Nahomy Kessler MD Ordering Physician: Nahomy Davies MD Date of Service: 10/20/24 Procedure(s): MR head/brain wo con Accession Number(s): [id number] cc: Nahomy Davies MD~ EXAMINATION: MR BRAIN WITHOUT IV CONTRAST HISTORY: CHICAS TECHNIQUE: Sagittal T1, and axial T1, FLAIR, T2, gradient echo, and diffusion weighted MR images of the brain were obtained. COMPARISON: Comparison is made with prior examinations dated 09/02/2023 and 02/12/2019. FINDINGS: There is diffuse prominence of the ventricular system and cortical sulci, consistent with atrophy. Periventricular and subcortical white matter hyperintensities are noted on the FLAIR and T2-weighted images which are nonspecific, but often seen in the setting of small vessel ischemic disease. The pituitary is normal in size. The cerebellar tonsils are normally located. There is no mass effect or midline shift. No intra or extra-axial fluid collections are identified. There are no foci of restricted diffusion. Normal vascular flow voids are noted in the basilar and carotid arteries. The visualized paranasal sinuses are clear. There is a 1.5 cm ovoid mass in the right parotid gland which likely represents a lymph node. MR/MR head/brain wo con IMPRESSION: No acute intracranial abnormality. Electronically signed by: Grzegorz Borden MD 10/22/2024 07:27 [place] [address] XRay Report Signed Patient: Arlette Dias MR#: [id number] : 1945 Acct:[id number] Age/Sex: 79 / F ADM Date: 09/19/24 Loc: HO.HHCX Attending Dr: Nahomy Kessler MD Ordering Physician: Nahomy Davies MD Date of Service: 09/19/24 Procedure(s): XR skull <4V Accession Number(s): [id number] cc: Nahomy Davies MD~ EXAMINATION: XR SKULL CLINICAL INFORMATION: Pain, headache, growth sensation COMPARISON: CT from July 25, 2024 TECHNIQUE: 5 views of the skull were obtained. FINDINGS: No bony destructive changes are identified. There are no lucent or sclerotic lesions. There is no periosteal new bone formation. XR/XR skull <4V IMPRESSION: Unremarkable examination. Electronically signed by: Kel Delgadillo MD 09/19/2024 10:51 AM EDT [place] [address] CT Scan Report Signed Patient: Arlette Dias MR#: [id number] : 1945 Acct:[id number] Age/Sex: 79 / F ADM Date: 07/25/24 Loc: HO.ED Attending Dr: Ordering Physician: Heydi Faustin NP Date of Service: 07/25/24 Procedure(s): CT head/brain wo IV con Accession Number(s): [id number] cc: Nahomy Davies MD; Heydi Faustin NP~ Report Number: [id number]: Total DLP = 748.00 mGy-cm EXAMINATION: CT HEAD WITHOUT CONTRAST CLINICAL INFORMATION: Headache, dizziness COMPARISON: 09/02/2023. TECHNIQUE: Contiguous axial imaging was performed from the skull base to vertex without intravenous administration of contrast. This CT examination was performed using dose optimization techniques as appropriate, variously including the following: *Automated exposure control *Adjustment of mA and/or kV according to patient size (this includes techniques or standardized protocols for targeted exams where dose is matched to indication/reason for exam; i.e. extremities or head) *Use of iterative reconstruction technique FINDINGS: There is no evidence of intracranial hemorrhage or extra-axial fluid collection. There is no mass effect, or edema. No CT evidence of acute territorial infarct. Ventricles, sulci, and cisterns are normal in size and configuration for patient age. No hydrocephalus. No midline shift. Negative hyperdense MCA sign. Negative insular ribbon sign. Patchy periventricular and deep white matter hypoattenuation is consistent with mild to moderate small vessel ischemic changes. Normal pituitary. Mild atheromatous calcification of the bilateral carotid siphons and V4 segments vertebral arteries bilaterally. Globes and orbital contents image normally. There are bilateral lens implants. No extracranial soft tissue abnormalities. The paranasal sinuses, mastoid air cells, and tympanic cavities are normally aerated. No suspicious bony abnormalities. There are no acute fractures evident. CT/CT head/brain wo IV con IMPRESSION: 1. No acute intracranial abnormalities. 2. Stable chronic changes. Electronically signed by: Jony Jama MD 07/25/2024 04:31 PM EDT RP Dictated By: Jony Jama MD Signed By: <Electronically signed by Jony Jama MD in OV> 07/25/24 1631 Laboratory Tests 10/04/24 01/14/25 09:16 08:27 ESR 22 H C-Reactive Protein 0.52 H --- CT brain WO at [facility] in 2012: mod cerebellar atrophy Assessment & Plan Assessment & Plan (1) Tremor: Code(s): R25.1 - Tremor, unspecified Category: Medical Plan: Continue primidone 50mg 1 tablet in the morning and 2 tablets at bedtime. (2) Cerebellar atrophy: Code(s): G31.9 - Degenerative disease of nervous system, unspecified Category: Medical Plan: Brain MRI and CT results reviewed. (3) Tension headache: Code(s): G44.209 - Tension-type headache, unspecified, not intractable Category: Medical Plan: Brain MRI, head CT, skull XR and lab results reviewed. Will repeat ESR and CRP. Start amitriptyline 10mg 1 tablet at bedtime, use/side effects. She was concerned with bumps on her head and was asking about biopsy - no osseous findings noted on skull XR, no extracranial soft tissue abnormalities or suspcious bony abnormalities noted on head CT. She was advised these are more likely dermatological in nature and recommend discussing possible referral to dermatology with PCP. (4) Medication overuse headache: Code(s): G44.40 - Drug-induced headache, not elsewhere classified, not intractable Category: Medical Plan: She reported taking Tylenol daily for months for headaches. There may be some component of medication overuse headaches to current headaches. She was educated on this concept and advised to stop using Tylenol (and avoid using other OTC analgesics) completely. Plan . Orders: Orders Erythrocyte Sedimentation Rate Today G44.209 - Tension-type headache, unspecified, not intractable C Reactive Protein Today G44.209 - Tension-type headache, unspecified, not intractable Medications: New amitriptyline 10 mg PO BEDTIME 30 tabs 2RF 30 days Coding Level of Care Code Est Pt Level 4 (64689) Diagnoses Tremor R25.1 Cerebellar atrophy G31.9 Tension headache G44.209 Medication overuse headache G44.40
--- OUTSIDE RECORDS SUMMARY | 2025-02-19 13:05 | XMS_ITS | Encounter Summary ---
Author Organization [employer] Address [address] [facility] 7t [place] [address] Care Team Providers Care Animal Nurse Name Role Phone Nahomy Davies MD Primary Care Pro vider Reason for Visit * Reason Comments Med Refill Encounter Details Date Type Department Care Team ([facility] st Contact Info) Description 10/18/2023 Refill [facility] MEDICINE [address] [place] [address] Nahomy Davies MD [address] [place] [address] Social History Tobacco Use Types Packs/Day Years [...] 03/26/2025 9:15 AM EST Office Visit [facility] [address] [place] [address] Nahomy Davies MD [address] [place] [address] documented as of this encounter Visit Diagnoses Not on filedocumented in this encounter Additional Health Concerns Assessment Noted Time PHQ-9 Depression Total Score: 0 04/23/19 9:18 AM EST documented as of this encounter Care Teams Animal Nurse Relationship Specialty Start Date End Date Nahomy Davies MD [address] [place] [address] [phone] PCP - General Internal Medicine 01/13/23 Nika BLOOMA 11/17/24 documented as of this encounter
--- OUTSIDE RECORDS SUMMARY | 2025-02-19 13:05 | XMS_ITS | Encounter Summary ---
Author Organization [employer] Address [address] [place] [address] [address] [address] Care Team Providers Care Environmental Inspector Name Role Phone Nancy Larose DIRECTOR OF EARLY CHILDHOOD Primary Care Provider Nahomy Wilkins MD Primary Care Pro vider Reason for Visit * Reason Comments Med Refill Encounter Details Date Type Department Care Team (Late st Contact Info) Description 09/23/2022 Refill [facility] MEDICINE [address] [place] [address] [phone] Nancy Larose FNP Shortness of breath Social [...] Description 03/26/2025 9:15 AM EST Office Visit [facility] MEDICINE [address] [place] [address] [phone] Nahomy Davies MD [address] [place], [place] [phone] documented as of this encounter Visit Diagnoses Diagnosis Shortness of breath documented in this encounter Additional Health Concerns Assessment Noted Time PHQ-9 Depression Total Score: 0 04/23/19 9:18 AM EST documented as of this encounter Care Teams Environmental Inspector Relationship Specialty Start Date End Date Nancy Larose FNP PCP - General Family Medicine 12/08/21 01/12/23 Nahomy Davies MD [address] [place] [phone] PCP - General Internal Medicine 01/13/23 Nika Darius 11/17/24 documented as of this encounter
--- OUTSIDE RECORDS SUMMARY | 2025-02-19 13:05 | XMS_ITS | Encounter Summary ---
Author Organization [employer] Address [address] [place] [address] [address] [address] Care Team Providers Care Shellfish Grower Name Role Phone Nancy Larose [facility] Primary Care Provider Nahomy Wilkins MD Primary Care Pro vider Reason for Visit * Reason Comments Med Refill Encounter Details Date Type Department Care Team (Late st Contact Info) Description 09/15/[address] [facility] MEDICINE [address] [place] [address] Anamaria Herzog FNP [address] [place] [address] Type 2 diabetes mellitus with other specified complication, with long-term current use of insulin ([facility]) Social History Tobacco Use Types Packs/Day [...] 9:15 AM EST Office Visit [facility] MEDICINE [address] [place] [address] Nahomy Davies MD [address] [place] [address] documented as of this encounter Visit Diagnoses Diagnosis Type 2 diabetes mellitus with other specified complication, with long-term current use of insulin (HCC) documented in this encounter Additional Health Concerns Assessment Noted Time PHQ-9 Depression Total Score: 0 04/23/19 9:18 AM EST documented as of this encounter Care Teams Shellfish Grower Relationship Specialty Start Date End Date Nancy Larose FNP PCP - General Family Medicine 12/08/21 01/12/23 Nahomy Davies MD [address] [place] [address] PCP - General Internal Medicine 01/13/23 Nika A 11/17/24 documented as of this encounter
--- OUTSIDE RECORDS SUMMARY | 2025-02-19 13:05 | XMS_ITS | Encounter Summary ---
Author Organization [employer] Address [address] [facility] 7t [place] [address] Care Team Providers Care Form Maker Name Role Phone Nahomy Davies MD Primary Care Pro vider Reason for Visit * Reason Comments Med Refill Encounter Details Date Type Department Care Team ([facility] st Contact Info) Description 11/11/2023 Refill [facility] MED[facility]INE [address] [place] [address] Nahomy Davies MD [address] [place] [address] Type 2 diabetes mellitus without complication, without long-term current use of insulin ([facility]) Social History Tobacco Use Types Packs/Day [...] EST Office Visit [facility] MEDICINE [address] [place] [phone] Nahomy Davies MD [address] [place] [phone] documented as of this encounter Visit Diagnoses Diagnosis Type 2 diabetes mellitus without complication, without long-term current use of insulin (HCC) documented in this encounter Additional Health Concerns Assessment Noted Time PHQ-9 Depression Total Score: 0 04/23/19 23 9:18 AM EST documented as of this encounter Care Teams Form Maker Relationship Specialty Start Date End Date Nahomy Davies MD [address] [place] [phone] PCP - General Internal Medicine 01/13/23 [place] A 11/17/24 documented as of this encounter
--- OUTSIDE RECORDS SUMMARY | 2025-02-19 13:05 | XMS_ITS | Encounter Summary ---
Author Organization [employer] Address [address] [facility] 7t [place] [address] Care Team Providers Care Roentgenologist Name Role Phone Nahomy Davies MD Primary Care Pro vider Reason for Visit * Reason Comments Med Refill Encounter Details Date Type Department Care Team ([facility] st Contact Info) Description 11/07/2023 Refill [facility] [address] [place] [address] Nahomy Davies MD [address] [place] [address] Type 2 diabetes mellitus without complication, without long-term current use of insulin ([facility]) Social History [...] Description 03/26/2025 9:15 AM EST Office Visit [facility] MEDICINE [address] [place] [phone] Nahomy Davies MD [address] [place] [phone] documented as of this encounter Visit Diagnoses Diagnosis Type 2 diabetes mellitus without complication, without long-term current use of insulin (HCC) documented in this encounter Additional Health Concerns Assessment Noted Time PHQ-9 Depression Total Score: 0 04/23/19 23 9:18 AM EST documented as of this encounter Care Teams Roentgenologist Relationship Specialty Start Date End Date Nahomy Davies MD [address] [place] [phone] PCP - General Internal Medicine 01/13/23 [place] A 11/17/24 documented as of this encounter
--- OUTSIDE RECORDS SUMMARY | 2025-02-19 13:05 | XMS_ITS | Encounter Summary ---
Author Organization [employer] Address [address] [facility] 7t [place] [address] Care Team Providers Care Forest Management Professor Name Role Phone Nahomy Davies MD Primary Care Pro vider Reason for Visit * Reason Comments Med Refill Encounter Details Date Type Department Care Team ([facility] st Contact Info) Description 11/08/2023 Refill [facility] MEDICINE [address] [place] [address] Nahomy Davies MD [address] [place] [address] Type 2 diabetes mellitus without complication, without long-term current use of insulin ([facility]) Social History Tobacco Use Types Packs/Day [...] Description 03/26/2025 9:15 AM EST Office Visit [facility] MEDICINE [address] [place] [address] Nahomy Davies MD [address] [place] [phone] documented as of this encounter Visit Diagnoses Diagnosis Type 2 diabetes mellitus without complication, without long-term current use of insulin (HCC) documented in this encounter Additional Health Concerns Assessment Noted Time PHQ-9 Depression Total Score: 0 04/23/19 23 9:18 AM EST documented as of this encounter Care Teams Forest Management Professor Relationship Specialty Start Date End Date Nahomy Davies MD [address] [place] [phone] PCP - General Internal Medicine 01/13/23 [place] A 11/17/24 documented as of this encounter
--- OUTSIDE RECORDS SUMMARY | 2025-02-19 13:05 | XMS_ITS | Encounter Summary ---
Author Organization [employer] Address [address] [facility] [address] [place] [address] Care Team Providers Care Slip Cover Seamstress Name Role Phone Nahomy Davies MD Primary Care Pro vider Reason for Visit * Reason Comments Med Refill Encounter Details Date Type Department Care Team ([facility] st Contact Info) Description 10/12/2023 Refill [facility] & PEDS [address] [place], [place] [phone] Nahomy Davies MD [address] [place] [address] Iron deficiency anemia, unspecified iron deficiency anemia [...] Visit [facility] MEDICINE [address] [place] [phone] Nahomy Davies MD [address] [place] [phone] documented as of this encounter Visit Diagnoses Diagnosis Iron deficiency anemia, unspecified iron deficiency anemia type documented in this encounter Additional Health Concerns Assessment Noted Time PHQ-9 Depression Total Score: 0 04/23/19 23 9:18 AM EST documented as of this encounter Care Teams Slip Cover Seamstress Relationship Specialty Start Date End Date Nahomy Davies MD [address] [place] [phone] PCP - General Internal Medicine 01/13/23 [place] A 11/17/24 documented as of this encounter
--- OUTSIDE RECORDS SUMMARY | 2025-02-19 13:05 | XMS_ITS | Encounter Summary ---
Author Organization [employer] Address [address] [facility] 7t [place] [address] Care Team Providers Care Entry Level Receptionist Name Role Phone Nahomy Davies MD Primary Care Pro vider Reason for Visit * Reason Comments Med Refill Encounter Details Date Type Department Care Team ([facility] st Contact Info) Description 11/08/2023 Refill [facility] MEDICINE [address] [place] [address] Nahomy Davies MD [address] [place] [address] Type 2 diabetes mellitus without complication, without long-term current use of insulin ([facility]) Social History [...] Description 03/26/2025 9:15 AM EST Office Visit [facility] MEDICINE [address] [place] [phone] Nahomy Davies MD [address] [place] [phone] documented as of this encounter Visit Diagnoses Diagnosis Type 2 diabetes mellitus without complication, without long-term current use of insulin (HCC) documented in this encounter Additional Health Concerns Assessment Noted Time PHQ-9 Depression Total Score: 0 04/23/19 23 9:18 AM EST documented as of this encounter Care Teams Entry Level Receptionist Relationship Specialty Start Date End Date Nahomy Davies MD [address] [place] [phone] PCP - General Internal Medicine 01/13/23 [place] A 11/17/24 documented as of this encounter
--- OUTSIDE RECORDS SUMMARY | 2025-02-19 13:05 | XMS_ITS | Encounter Summary ---
Author Organization [employer] Address [address] [place] [address] [place], [place] [address] Care Team Providers Care Subassembly Assembler Name Role Phone Nancy Larose INSURANCE BILLER Primary Care Provider Nahomy Wilkins MD Primary Care Pro vider Encounter Details Date Type Department Care Team (Late st Contact Info) Description 03/30/2022 Orders Only [facility] [address] [place], [place] [phone] Kary Lux LPN Social History Tobacco Use [...] 9:15 AM EST Office Visit [facility] MEDICINE [address] [place] [address] Nahomy Davies MD 230 [place] [address] documented as of this encounter Visit Diagnoses Not on filedocumented in this encounter Care Teams Subassembly Assembler Relationship Specialty Start Date End Date Nancy Larose FNP PCP - General Family Medicine 12/08/21 01/12/23 Nahomy Davies MD [address] [place] [address] [phone] PCP - General Internal Medicine 01/13/23 Nika ZAMAN 11/17/24 documented as of this encounter
--- OUTSIDE RECORDS SUMMARY | 2025-02-19 13:05 | XMS_ITS | Encounter Summary ---
Author Organization [employer] Address [address] [facility] 7[address] [place] [address] Care Team Providers Care Health Care Social Worker Name Role Phone Nahomy Davies MD Primary Care Pro vider Reason for Visit * Reason Comments Med Refill Encounter Details Date Type Department Care Team ([facility] st Contact Info) Description 10/03/2024 Refill [facility] CH[facility] MED & PEDS [address] [place], [place] [phone] Nahomy Davies MD 230 [place] [address] Cobalamin deficiency Social History Tobacco Use Types [...] Office Visit [facility] MEDICINE [address] [place] [address] Nahomy Davies MD [address] [place] [address] documented as of this encounter Visit Diagnoses Diagnosis Cobalamin deficiency Other B-complex deficiencies documented in this encounter Additional Health Concerns Assessment Noted Time PHQ-9 Depression Total Score: 0 09/27/19 2:19 PM EDT documented as of this encounter Care Teams Health Care Social Worker Relationship Specialty Start Date End Date Nahomy Davies MD [address] [place] [phone] PCP - General Internal Medicine [facility]23 [facility] documented as of this encounter
--- OUTSIDE RECORDS SUMMARY | 2025-02-19 13:05 | XMS_ITS | Encounter Summary ---
Author Organization [employer] Address [address] [facility] 7t [place] [address] Care Team Providers Care Shop Helper Name Role Phone Nahomy Davies MD Primary Care Pro vider Reason for Visit * Reason Comments Med Refill Encounter Details Date Type Department Care Team ([facility] st Contact Info) Description 08/07/2024 Refill [facility] CHC MED & PEDS [address] [place], [place] [phone] Irene Mei MD 230 [place] [address] Social History Tobacco Use Types Packs/Day Years [...] 03/26/2025 9:15 AM EST Office Visit [facility] MEDICINE [address] [place] [address] Nahomy Davies MD [address] [place] [address] documented as of this encounter Visit Diagnoses Not on filedocumented in this encounter Additional Health Concerns Assessment Noted Time PHQ-9 Depression Total Score: 0 04/23/19 9:18 AM EST documented as of this encounter Care Teams Shop Helper Relationship Specialty Start Date End Date Nahomy Davies MD [address] [place] [address] PCP - General Internal Medicine [facility]23 [facility] documented as of this encounter
--- OUTSIDE RECORDS SUMMARY | 2025-02-19 13:05 | XMS_ITS | Encounter Summary ---
Author Organization [employer] Address [address] [facility] 7t [place] [address] Care Team Providers Care Turkish Rubber Name Role Phone Nahomy Davies MD Primary Care Pro vider Reason for Visit * Reason Comments Med Refill Encounter Details Date Type Department Care Team ([facility] st Contact Info) Description 12/02/2023 Refill [facility] MED & PEDS [address] [place], [place] [phone] Nahomy Davies MD 230 [place] [address] Social History Tobacco Use Types Packs/Day Years [...] Office Visit [facility] MEDICINE [address] [place] [address] Nahomy Davies MD [address] [place] [address] documented as of this encounter Visit Diagnoses Not on filedocumented in this encounter Additional Health Concerns Assessment Noted Time PHQ-9 Depression Total Score: 0 04/23/19 9:18 AM EST documented as of this encounter Care Teams Turkish Rubber Relationship Specialty Start Date End Date Nahomy aDvies MD [address] [place] [address] [phone] PCP - General Internal Medicine 01/13/23 [facility] 11/17/24 documented as of this encounter
--- OUTSIDE RECORDS SUMMARY | 2025-02-19 13:05 | XMS_ITS | Encounter Summary ---
Author Organization [employer] Address [address] [place] [address] [address] [address] Care Team Providers Care Long Term Care Social Worker Name Role Phone Nancy Larose [facility] Primary Care Provider Nahomy Wilkins MD Primary Care Pro vider Reason for Visit * Reason Comments Med Refill Encounter Details Date Type Department Care Team ([facility] st Contact Info) Description 08/30/2022 Refill [facility] MEDICINE 230 [place] [address] Anamaria Herzog FNP [address] [place] [address] Type 2 diabetes mellitus with other specified complication, with long-term current use of insulin ([facility]) Social History Tobacco [...] Upcoming Encounters Date Type Department Care Team ([facility] Contact Info) Description 03/26/2025 9:15 AM EST Office Visit [facility] MEDICINE 230 [place] [address] Nahomy Davies MD 230 [place] [address] documented as of this encounter Visit Diagnoses Diagnosis Type 2 diabetes mellitus with other specified complication, with long-term current use of insulin (HCC) documented in this encounter Additional Health Concerns Assessment Noted Time PHQ-9 Depression Total Score: 0 04/23/19 9:18 AM EST documented as of this encounter Care Teams Long Term Care Social Worker Relationship Specialty Start Date End Date Nancy Larose FNP PCP - General Family Medicine 12/08/21 01/12/23 Nahomy Davies MD 230 [place] [address] PCP - General Internal Medicine 01/13/23 Nika A 11/17/24 documented as of this encounter
--- OUTSIDE RECORDS SUMMARY | 2025-02-19 13:05 | XMS_ITS | Encounter Summary ---
Author Organization [employer] Address [address] [facility] 7t [place] [address] Care Team Providers Care Brim Pouncing Machine Operator Name Role Phone Nahomy Davies MD Primary Care Pro vider Reason for Visit * Reason Comments Med Refill Encounter Details Date Type Department Care Team ([facility] st Contact Info) Description 08/07/2024 Refill [facility] MEDICINE 230 [place], [place] [phone] Nahomy Davies MD 230 [place], [place] [phone] Type 2 diabetes mellitus without complication, without long-term current use of insulin ([facility]); Essential hypertension Social History Tobacco Use Types [...] EST Office Visit [facility] MEDICINE [address] [place] [address] Nahomy Davies MD [address] [place] [address] documented as of this encounter Visit Diagnoses Diagnosis Type 2 diabetes mellitus without complication, without long-term current use of insulin (HCC) Essential hypertension Unspecified essential hypertension documented in this encounter Additional Health Concerns Assessment Noted Time PHQ-9 Depression Total Score: 0 04/23/19 23 9:18 AM EST documented as of this encounter Care Teams Brim Pouncing Machine Operator Relationship Specialty Start Date End Date Nahomy Davies MD [address] [place] [phone] PCP - General Internal Medicine 01/13/23 [facility] documented as of this encounter
--- OUTSIDE RECORDS SUMMARY | 2025-02-19 13:06 | XMS_ITS | Encounter Summary ---
Author Organization [employer] Address 75 [facility] 7t [place] [address] Care Team Providers Care Spinning Machine Tender Name Role Phone Nahomy Davies MD Primary Care Pro vider Reason for Visit * Reason Comments Med Refill Encounter Details Date Type Department Care Team ([facility] st Contact Info) Description 04/20/2024 Refill [facility] CHC MED & PEDS [address] [place], [place] [phone] Suyapa Doyle MD 230 [place] [address] Iron deficiency anemia, unspecified iron deficiency anemia [...] Office Visit [facility] MEDICINE [address] [place] [address] Nahomy Davies MD [address] [place] [address] documented as of this encounter Visit Diagnoses Diagnosis Iron deficiency anemia, unspecified iron deficiency anemia type documented in this encounter Additional Health Concerns Assessment Noted Time PHQ-9 Depression Total Score: 0 04/23/19 9:18 AM EST documented as of this encounter Care Teams Spinning Machine Tender Relationship Specialty Start Date End Date Nahomy Davies MD [address] [place] [phone] PCP - General Internal Medicine 01/13/23 [facility] documented as of this encounter
--- OUTSIDE RECORDS SUMMARY | 2025-02-19 13:06 | XMS_ITS | Encounter Summary ---
Author Organization [employer] Address 75 [facility] 7t [place] [address] Care Team Providers Care Caul Puller Name Role Phone Nahomy Davies MD Primary Care Pro vider Reason for Visit * Reason Comments Med Refill Encounter Details Date Type Department Care Team ([facility] st Contact Info) Description 01/22/2024 Refill [facility] MEDICINE 230 [place] [address] Nahomy Davies MD 230 [place] [address] Social History Tobacco Use Types Packs/Day Years [...] Description 03/26/2025 9:15 AM EST Office Visit [facility] MEDICINE [address] [place] [address] Nahomy Davies MD [address] [place] [address] documented as of this encounter Visit Diagnoses Not on filedocumented in this encounter Additional Health Concerns Assessment Noted Time PHQ-9 Depression Total Score: 0 04/23/19 9:18 AM EST documented as of this encounter Care Teams Caul Puller Relationship Specialty Start Date End Date Nahomy Davies MD [address] [place] [phone] PCP - General Internal Medicine 01/13/23 [facility] documented as of this encounter
--- OUTSIDE RECORDS SUMMARY | 2025-02-19 13:06 | XMS_ITS | Encounter Summary ---
Author Organization [employer] Address 75 [facility] 7t [place] [address] Care Team Providers Care Slitting Machine Operator Helper Name Role Phone Nahomy Davies MD Primary Care Pro vider Reason for Visit * Reason Comments Med Refill Encounter Details Date Type Department Care Team ([facility] st Contact Info) Description 01/30/2024 Refill [facility] MEDICINE 230 [place], [place] [phone] Nahomy Davies MD 230 [place] [address] Iron deficiency anemia, unspecified iron deficiency anemia [...] 03/26/2025 9:15 AM EST Office Visit [facility] MEDICINE [address] [place] [address] Nahomy Davies MD [address] [place] [address] documented as of this encounter Visit Diagnoses Diagnosis Iron deficiency anemia, unspecified iron deficiency anemia type Mixed hyperlipidemia documented in this encounter Additional Health Concerns Assessment Noted Time PHQ-9 Depression Total Score: 0 04/23/19 23 9:18 AM EST documented as of this encounter Care Teams Slitting Machine Operator Helper Relationship Specialty Start Date End Date Nahomy Davies MD [address] [place] [phone] PCP - General Internal Medicine 01/13/23 [facility] documented as of this encounter
--- OUTSIDE RECORDS SUMMARY | 2025-02-19 13:06 | XMS_ITS | Encounter Summary ---
Author Organization [employer] Address [address] [facility] 7t [place] [address] Care Team Providers Care Duct Installer Name Role Phone Nahomy Davies MD Primary Care Pro vider Reason for Visit * Reason Comments Med Refill Encounter Details Date Type Department Care Team ([facility] st Contact Info) Description 01/31/[address] [facility] MEDICINE [address] [place] [address] Nancy Larose FNP Social History Tobacco Use [...] [facility] MEDICINE [address] [place] [address] Nahomy Davies MD [address] [place] [address] documented as of this encounter Visit Diagnoses Not on filedocumented in this encounter Additional Health Concerns Assessment Noted Time PHQ-9 Depression Total Score: 0 04/23/19 9:18 AM EST documented as of this encounter Care Teams Duct Installer Relationship Specialty Start Date End Date Nahomy Davies MD [address] [place] [address] PCP - General Internal Medicine 01/13/23 [facility] 11/17/24 documented as of this encounter
--- OUTSIDE RECORDS SUMMARY | 2025-02-19 13:06 | XMS_ITS | Encounter Summary ---
Author Organization [employer] Address [address] [facility] 7t [place] [address] Care Team Providers Care Public Health Specialist Name Role Phone Nahomy Davies MD Primary Care Pro vider Reason for Visit * Reason Comments Med Refill Encounter Details Date Type Department Care Team ([facility] st Contact Info) Description 02/27/2024 Refill [facility] MEDICINE 230 [place], [place] [phone] Irene Mei MD 230 [place], [place] [phone] Shortness of breath; Type 2 diabetes mellitus with other specified complication, with long-term current use of insulin ([facility]) Social History [...] 9:15 AM EST Office Visit [facility] MEDICINE [address] [place] [address] Nahomy Davies MD [address] [place] [address] documented as of this encounter Visit Diagnoses Diagnosis Shortness of breath Type 2 diabetes mellitus with other specified complication, with long-term current use of insulin (HCC) documented in this encounter Additional Health Concerns Assessment Noted Time PHQ-9 Depression Total Score: 0 04/23/19 23 9:18 AM EST documented as of this encounter Care Teams Public Health Specialist Relationship Specialty Start Date End Date Nahomy Davies MD [address] [place] [phone] PCP - General Internal Medicine 01/13/23 [facility] 11/17/24 documented as of this encounter
--- OUTSIDE RECORDS SUMMARY | 2025-02-19 13:06 | XMS_ITS | Encounter Summary ---
Author Organization [employer] Address 75 [facility] 7t [place] [address] Care Team Providers Care Talkback Host Name Role Phone Nahomy Davies MD Primary Care Pro vider Reason for Visit * Reason Comments Med Refill Encounter Details Date Type Department Care Team ([facility] st Contact Info) Description 02/23/2024 Refill [facility] MEDICINE 230 [place] [address] Nahomy Davies MD 230 [place], [place] [phone] Essential hypertension; Type 2 diabetes mellitus without complication, without long-term current use of insulin ([facility]) Social History Tobacco Use Types [...] 9:15 AM EST Office Visit [facility] MEDICINE [address] [place] [address] Nahomy Davies MD [address] [place] [address] documented as of this encounter Visit Diagnoses Diagnosis Essential hypertension Unspecified essential hypertension Type 2 diabetes mellitus without complication, without long-term current use of insulin (HCC) documented in this encounter Additional Health Concerns Assessment Noted Time PHQ-9 Depression Total Score: 0 04/23/19 23 9:18 AM EST documented as of this encounter Care Teams Talkback Host Relationship Specialty Start Date End Date Nahomy Davies MD [address] [place] [address] PCP - General Internal Medicine 01/13[facility]23 [facility] documented as of this encounter
--- OUTSIDE RECORDS SUMMARY | 2025-02-19 13:06 | XMS_ITS | Encounter Summary ---
Author Organization [employer] Address [address] [facility] 7t [place] [address] Care Team Providers Care Fitter Armament Name Role Phone Nahomy Davies MD Primary Care Pro vider Reason for Visit * Reason Comments Med Refill Encounter Details Date Type Department Care Team ([facility] st Contact Info) Description 03/07/2024 Refill [facility] MEDICINE 230 [place], [place] [phone] Irene Mei MD 230 [place], [place] [phone] Shortness of breath; Type 2 diabetes mellitus with other specified complication, with long-term current use of insulin ([facility]); Chronic neck pain Social History [...] Description 03/26/2025 9:15 AM EST Office Visit [facility] MEDICINE [address] [place] [address] Nahomy Davies MD [address] [place] [address] documented as of this encounter Visit Diagnoses Diagnosis Shortness of breath Type 2 diabetes mellitus with other specified complication, with long-term current use of insulin (HCC) Chronic neck pain Cervicalgia documented in this encounter Additional Health Concerns Assessment Noted Time PHQ-9 Depression Total Score: 0 04/23/19 23 9:18 AM EST documented as of this encounter Care Teams Fitter Armament Relationship Specialty Start Date End Date Nahomy Davies MD [address] [place] [address] PCP - General Internal Medicine 01/13/23 Nika BLOOMA 11/17/24 documented as of this encounter
--- OUTSIDE RECORDS SUMMARY | 2025-02-19 13:06 | XMS_ITS | Encounter Summary ---
Author Organization [employer] Address [address] [facility] 7t [place] [address] Care Team Providers Care Bar Tender Name Role Phone Nahomy Davies MD Primary Care Pro vider Reason for Visit * Reason Comments Med Refill Encounter Details Date Type Department Care Team ([facility] st Contact Info) Description 05/16/2024 Refill [facility] MED & PEDS [address] [place], [place] [phone] Nahomy Davies MD 230 [place] [address] Social History Tobacco Use Types Packs/Day Years [...] Visit [facility] MEDICINE [address] [place] [address] Nahomy Davies MD [address] [place] [address] documented as of this encounter Visit Diagnoses Not on filedocumented in this encounter Additional Health Concerns Assessment Noted Time PHQ-9 Depression Total Score: 0 04/23/19 23 9:18 AM EST documented as of this encounter Care Teams Bar Tender Relationship Specialty Start Date End Date Nahomy Davies MD [address] [place] [address] PCP - General Internal Medicine 01/13[facility]23 [facility] documented as of this encounter
--- OUTSIDE RECORDS SUMMARY | 2025-02-19 13:06 | XMS_ITS | Encounter Summary ---
Author Organization [employer] Address 75 [facility] 7 [place] [address] Care Team Providers Care Sand Temperer Name Role Phone Nahomy Davies MD Primary Care Pro vider Reason for Visit * Reason Comments Med Refill Encounter Details Date Type Department Care Team ([facility] st Contact Info) Description 11/27/2024 Refill [facility] MEDICINE 230 [place] [address] Nahomy Davies MD 230 [place] [address] Shortness of breath; Type 2 diabetes mellitus without complication, without long-term current use of insulin ([facility]) Social History Tobacco Use Types [...] 9:15 AM EST Office Visit [facility] MEDICINE [address] [place] [address] Nahomy Davies MD 230 [place] [address] documented as of this encounter Visit Diagnoses Diagnosis Shortness of breath Type 2 diabetes mellitus without complication, without long-term current use of insulin (HCC) documented in this encounter Additional Health Concerns Assessment Noted Time PHQ-9 Depression Total Score: 0 09/27/19 25 2:19 PM EDT documented as of this encounter Care Teams Sand Temperer Relationship Specialty Start Date End Date Nahomy Davies MD 230 [place] [address] PCP - General Internal Medicine 01/13[facility]23 [facility] documented as of this encounter
--- OUTSIDE RECORDS SUMMARY | 2025-02-19 13:06 | XMS_ITS | Encounter Summary ---
Author Organization [employer] Address 75 [facility] 7t [place] [address] Care Team Providers Care Film Casting Operator Name Role Phone Nahomy Davies MD Primary Care Pro vider Reason for Visit * Reason Comments Med Refill Encounter Details Date Type Department Care Team ([facility] st Contact Info) Description 07/10/2024 Refill [facility] MED & PEDS [address] [place], [place] [phone] Suyapa Doyle MD 230 [place] [address] Acquired hypothyroidism; Osteopenia determined by x-ray; Sleep [...] Office Visit [facility] MEDICINE [address] [place] [phone] Nahomy Davies MD [address] [place] [phone] documented as of this encounter Visit Diagnoses Diagnosis Acquired hypothyroidism Unspecified hypothyroidism Osteopenia determined by x-ray Sleep disturbance Unspecified sleep disturbance Iron deficiency anemia, unspecified iron deficiency anemia type documented in this encounter Additional Health Concerns Assessment Noted Time PHQ-9 Depression Total Score: 0 04/23/19 23 9:18 AM EST documented as of this encounter Care Teams Film Casting Operator Relationship Specialty Start Date End Date Nahomy Davies MD [address] [place] [phone] PCP - General Internal Medicine 01/13/23 [facility] 11/17/24 documented as of this encounter
--- OUTSIDE RECORDS SUMMARY | 2025-02-19 13:06 | XMS_ITS | Clinical Summary ---
Author Organization [employer] Address [address] [facility] 7t [place] [address] Care Team Providers Care Lining Feller Name Role Phone Nahomy Davies MD Primary [...] 2 times daily. 023 Active Continuous Glucose Child Care Giver (FreeStyle Anthony 2 [place]) device Use as directed to monitor glucose ever 8 hours. 1 each 024 Active Continuous Glucose Sensor (FreeStyle Anthony 2 Sensor) misc Use as directed to monitor glucose ever 8 hours. Replace sensor every 14 days. 2 each Active Senna-Time 8.6 MG tablet TAKE 2 TABLETS BY MOUTH EVERY DAY AT BEDTIME FOR CONSTIPATION Active Continuous Glucose Child Care Giver (FreeStyle Anthony 3 [place]) deviceIndications :Type 2 diabetes mellitus with other specified complication, with long-term current use of insulin ([facility]) 1 each Once per day. Use as directed for CGM 1 each Active Continuous Glucose Sensor (FreeStyle Anthony 3 Plus Sensor) miscIndications:T ype 2 diabetes mellitus with other specified complication, with long-term current use of insulin ([facility]) 1 each every 15 days. Apply 1 every 15 days as directed for CGM 2 each Active Icosapent Ethyl (Vascepa) 1 g capsule Take 2 capsules (2 g) by mouth with breakfast and with evening meal. 120 capsule 2025 Active glucose blood (FreeStyle Precision Mahesh Test) test stripIndications: Type 2 diabetes mellitus without complication, without long-term current use of insulin ([facility]) USE TO TEST BLOOD SUGAR THREE TIMES A DAY 100 each Active metoprolol succinate XL (Toprol-XL) 50 MG [...] MOUTH EVERY DAY 30 tablet 025 Active melatonin 5 MG [...] TIMES DAILY ) (BULK). 200 each Active insulin lispro (HumaLOG) 100 UNIT/ML injection To use three times a day with meals as sliding scale If glucose from 150 to 200 to use 2 units , 201-250 4 units, 251 to 300 6 units, 301 to 350 8 units 1 each Active cyanocobalamin (Vitamin B-12) 1000 MCG tabletIndications [...] TIMES A DAY (BULK) 200 each Active albuterol 108 (90 Base) MCG/ACT inhalerIndication s:Shortness of breath INHALE TWO PUFFS BY MOUTH FOUR TIMES A DAY (BULK) 8.5 g Active insulin glargine (Lantus SoloStar) 100 UNIT/ML penIndications:Ty pe 2 diabetes mellitus with hypoglycemia without coma, with long-term current use of insulin ([facility]) INJECT 18 UNITS UNDER THE SKIN AT BEDTIME (BULK) 30 mL 5 Active atorvastatin (Lipitor) 80 MG tabletIndications :Type 2 diabetes mellitus with other specified complication, with long-term current use of insulin ([facility]) Take 1 tablet (80 mg) by mouth Once per day. 90 tablet 025 2025 Active Acetaminophen Extra Strength 500 MG tabletIndications :Type 2 diabetes mellitus without complication, without long-term current use of insulin ([facility]) TAKE ONE TO TWO TABLETS BY MOUTH THREE TIMES A DAY NEEDED (VIAL) 60 tablet 1 Active Ascorbic Acid (vitamin C) 250 MG tabletIndications :Iron deficiency anemia, unspecified iron deficiency anemia type TAKE ONE TABLET BY MOUTH EVERY MORNING ^1R1 30 tablet 5 025 Active Diclofenac Sodium 1 % gel APPLY TOPICALLY EACH DAY IF NEEDED FOR SHOULDER PAIN (BULK) 100 g 5 025 Active ferrous gluconate (Fergon) 324 (38 Fe) MG tabletIndications :Iron deficiency anemia, unspecified iron deficiency anemia type TAKE ONE TABLET BY MOUTH EVERY DAY WITH BREAKFAST 30 tablet 5 025 Active omeprazole (PriLOSEC) [address] capsule TAKE ONE CAPSULE BY MOUTH EVERY DAY BEFORE MEALS ^1R1 30 capsule 5 025 Active pregabalin (Lyrica) 100 MG capsule TAKE ONE CAPSULE BY MOUTH TWICE A DAY 56 capsule 1 025 Active metFORMIN XR (Glucophage-XR) 500 MG 24 hr tabletIndications :Type 2 diabetes mellitus without complication, without long-term current use of insulin ([facility]) TAKE TWO TABLETS BY MOUTH TWICE A DAY WITH FOOD 112 tablet 5 025 Active glucose 4 g chewable tabletIndications :Type 2 diabetes mellitus with other specified complication, with long-term current use of insulin ([facility]) CHEW 4 TABLETS BY MOUTH NEEDED FOR LOW BLOOD SUGAR (BULK) 50 tablet 11 025 Active Diclofenac Sodium 1 % gel APPLY TOPICALLY EACH DAY IF NEEDED FOR SHOULDER PAIN (BULK) 100 g 5 024 2024 Discontinued(R eorder (will not trigger notification to Pharmacy)) glucose 4 g chewable tabletIndications :Type 2 diabetes mellitus with other specified complication, with long-term current use of insulin ([facility]) CHEW AND SWALLOW 4 TABLETS BY MOUTH IF NEEDED FOR LOW BLOOD SUGAR (BULK) 50 tablet 3 024 2024 Discontinued ferrous gluconate (Fergon) 324 (38 Fe) MG tabletIndications :Iron deficiency anemia, unspecified iron deficiency anemia type TAKE ONE TABLET BY MOUTH EVERY DAY WITH BREAKFAST 30 tablet 5 025 2024 Discontinued(R eorder (will not trigger notification to Pharmacy)) Ascorbic Acid (vitamin C) 250 MG tabletIndications :Iron deficiency anemia, unspecified iron deficiency anemia type TAKE ONE TABLET BY MOUTH EVERY MORNING ^1R1 30 tablet 5 025 2024 Discontinued(R eorder (will not trigger notification to Pharmacy)) metFORMIN XR (Glucophage-XR) 500 MG 24 hr tabletIndications :Type 2 diabetes mellitus without complication, without long-term current use of insulin ([facility]) TAKE TWO TABLETS BY MOUTH TWICE A DAY WITH FOOD 112 tablet 5 025 2024 Discontinued omeprazole (PriLOSEC) [address] capsule Take 1 capsule (20 mg) by mouth before breakfast. Do not crush or chew.TAKE ONE CAPSULE BY MOUTH EVERY DAY BEFORE MEALS ^1R1 90 capsule 025 2024 Discontinued(R eorder (will not trigger notification to Pharmacy)) pregabalin (Lyrica) 100 MG capsule TAKE ONE CAPSULE BY MOUTH TWICE A DAY 56 capsule 1 025 2024 Discontinued(R eorder (will not trigger notification to Pharmacy)) Acetaminophen Extra Strength 500 MG tabletIndications :Type 2 diabetes mellitus without complication, without long-term current use of insulin ([facility]) TAKE ONE TO TWO TABLETS BY MOUTH [...] TIA (transient ischemic attack) 10/04/2023 Cervical myelopathy (CMS/HCC) 10/04/2023 Parotid nodule 10/04/2023 Trigger middle finger [...] Encounters Date Type Department Care Team Description 02/11/2025 Refill [facility] MED & PEDS [address] [place] [address] Nahomy Davies MD Type 2 diabetes mellitus with other specified complication, with long-term current use of insulin (HCC) 02/08/2025 Refill [facility] MEDICINE [address] [place] [address] Nahomy Davies MD Type 2 diabetes mellitus without complication, without long-term current use of insulin (HCC) 02/05/[address] [address] Nahomy Davies MD Type 2 diabetes mellitus without complication, without long-term current use of insulin (HCC); Iron deficiency anemia, unspecified iron deficiency anemia type; Osteopenia determined by x-ray; Acquired hypothyroidism; Essential hypertension; Sleep disturbance 02/04/[address] [address] Nahomy Davies MD Med Refill 01/23/[address] [address] Nahomy Davies MD Type 2 diabetes mellitus without complication, without long-term current use of insulin (HCC); Osteopenia determined by x-ray; Acquired hypothyroidism; Sleep disturbance; Essential hypertension 01/18/2025 9:15 AM EDT Office Visit [address] [address] Karrie Carlisle MD Seborrheic keratoses (Primary Dx) 01/18/2025 Travel 01/14/2025 Results Follow-Up [address] [address] Nahomy Davies MD Comprehensive Metabolic Panel, C-reactive Protein 01/14/2025 Orders Only GENERIC EXTERNAL DATA DEPARTMENT Provider, Generic External Data 01/10/[address] [address] Nahomy Davies MD Med Refill 01/08/[address] [address] Nahomy Davies MD Iron deficiency anemia, unspecified iron deficiency anemia type 01/08/2025 Orders Only [address] [address] Nahomy Davies MD Type 2 diabetes mellitus with other specified complication, with long-term current use of insulin ([facility]/HCC) (Primary Dx) 12/26/2024 Refill [facility] [address] [place] [address] Nahomy Davies MD Iron deficiency anemia, unspecified iron deficiency anemia type 12/20/2024 Refill [facility] [address] [place] [address] Nahomy Davies MD Type 2 diabetes mellitus without complication, without long-term current use of insulin ([facility]) 12/17/2024 Refill [facility] [address] [place] [address] Nahomy Davies MD Type 2 diabetes mellitus with hypoglycemia without coma, with long-term current use of insulin ([facility]) 12/11/2024 Telephone [facility] [address] [place] [address] Kiarra Iniguez RN NTTS Triage 11/28/2024 Refill [facility] [address] [place] [address] Nahomy Davies MD Shortness of breath 11/27/2024 Refill [facility] [address] [place] [address] Nahomy Davies MD Shortness of breath; Type 2 diabetes mellitus without complication, without long-term current use of insulin ([facility]) 11/25/2024 Refill [facility] [address] [place] [address] Nahomy Davies MD 11/22/2024 Telephone [facility] [address] [place] [address] Nahomy Davies MD telephone call 11/21/2024 Refill [facility] [address] [place] [address] Sabrina Gonzalez NP 11/20/2024 Telephone [facility] MEDIC[facility] [address] [place] [address] Nahomy Davies MD fyi 11/19/2024 Refill [facility] MED & PEDS [address] [place], [place] [phone] Nahomy Davies MD from Last 3 Months Immunizations Immunization Administration [...] EST Office Visit [facility] [address] [place] [address] [phone] Nahomy Davies MD [address] [place] [phone] Health Maintenance Due Date Last Done Comments [...] with long-term current use of insulin (HCC) ALBUMIN, RANDOM URINE W/CREATININE Routine 10/04/2024 9:16 [...] Protein 0.52(H) < or = 0.50 mg/dL [facility] Blood Venous blood specimen / Unknown 01/14/2025 8:27 AM EDT 01/14/2025 11:17 AM EDT Nahomy Kessler MD LAB BLOOD ORDERAB LES Final Result Performing Organization Address [facility]/ZIP Co de Phone Number [facility] [address] [place] [address] [phone] * (ABNORMAL) Lipid Panel, Standard (01/14/2025 8:27 AM EDT) Triglycerides 169(H) <150 mg/dL [facility] Comment:Desirable Triglyceri de: less than 150 mg/dLBorderline High Triglyceride 150-199 mg/dLHigh Triglyceride: 200-499 mg/dLVery High Triglyceride: greater than or equal to 5OO mg/dL Cholesterol 217(H) <200 mg/dL [facility] Comment:Desirable Cholestero l: less than 200 mg/dLBorderline High Cholesterol: 200-239 mg/dLHigh Cholesterol: greater than 239 mg/dL LDL Cholesterol Calculated 145(H) <100 mg/dL [facility] Comment:Desirable LDL: less than 100 mg/dLNear Optimal/Above Optimal LDL: 110- 129 mg/dLBorderline High LDL: 130-159 mg/dLHigh LDL: 160-189 mg/dLVery High LDL: greater than or equal to 190 mg/dL HDL Cholesterol 39(L) >40 mg/dL [facility] Comment:Desirable HDL: great er than 40 mg/dL Note: This HDL assay may give artificially low results in patients with liver disease. 01/14/2025 8:27 AM EDT 01/14/2025 11:17 AM EDT us Generic External Data Provider LAB BLOOD ORDERAB LES Final Result Performing Organization Address City/[facility]/ZIP Co de Phone Number [facility] [address] [place] [phone] [phone] * (ABNORMAL) Comprehensive Metabolic Panel (01/14/2025 8:27 AM EDT) Sodium 143 135 - 145 mmol/L [facility] Potassium 4.1 3.3 - 5.1 mmol/L [facility] Chloride 109(H) 96 - 108 mmol/L [facility] Carbon Dioxide 29 22 - 29 mmol/L [facility] Anion Gap 9(L) 12 - 20 [facility] Urea Nitrogen (BUN) 8(L) 9 - 16 mg/dL [facility] Creatinine, Serum 0.61 0.5 - 1.4 mg/dL [facility] Estimated Glomerular Filt Rate >60 [facility] Comment:Chronic Kidney Disea se: Estimated GFR < 60 mL/min/1.10g0Muhsxs Kidney Disease: Estimated GFR < 15 mL/min/1.73m2 Glucose 66 60 - 115 mg/dL [facility] Calcium 9.0 8.4 - 10.2 mg/dL [facility] Bilirubin, Total 0.5 0.0 - 1.0 mg/dL [facility] Aspartate Amino Transferase 32(H) 5 - 31 U/L [facility] Alanine Aminotransferase 14 0 - 31 U/L [facility] Total Protein 6.5 6.5 - 8.0 g/dL [facility] Albumin Level 3.6 3.5 - 5.0 g/dL [facility] Alkaline Phosphatase 98 39 - 117 U/L [facility] Blood Venous blood specimen / Unknown 01/14/2025 8:27 AM EDT 01/14/2025 11:17 AM EDT us Nahomy Kessler MD LAB BLOOD ORDERAB LES Final Result [facility] [address] [place], [place] [phone] * Albumin, Random Urine W/Creatinine (10/04/2024 9:16 AM EDT) Creatinine, Urine 111.46 mg/dL [facility] Microalbumin Urine 31.0 mg/L [facility] Microalbum Creatinine Ratio Ur 27.8 <30 ug/mg cr [facility] Comment:Albumin/Creatinine R atio Reference Ranges: Normal: < 30 ug/mg creatinine Microalbuminuria: 30 - 300 ug/mg creatinineClinical Albuminuria: > 300 ug/mg creatinine Urine (Urine, Random) 10/04/2024 9:16 AM EDT 10/04/2024 11:22 AM EDT us Nahomy Kessler MD LAB URINE ORDERAB LES Final Result Performing Organization Address City/[facility]/ZIP Co de Phone Number [facility] [address] [place] [phone] * (ABNORMAL) Hemoglobin A1c (10/04/2024 9:16 AM EDT) Hemoglobin A1c 7.1(H) <6.0 % [facility] Comment:Hemoglobin A1C Refer ence Range Adults: 4.8 - 6.0 % Non diabetic: < 6.0 % Goal: < 7.0 %Additional Action Suggested: > 8.0 %Note: Hemoglobin A1c results are invalid for patients with abnormal amounts of HbF. Blood transfusions may impact the HbA1c concentration in the patient sample. Estimated Average Glucose 157 mg/dL [facility] Comment:eAG = Estimated ave rage glucose which is %A1C expressed asaverage glucose, using the formula of the I8Y-WqojtxwFbviobm Glucose study (ADAG), Diabetes Care, Vol.31,#8,Nov. 2007 Blood Venous blood specimen / Unknown 10/04/2024 9:16 AM EDT 10/04/2024 11:27 AM EDT us Nahomy Kessler MD LAB BLOOD ORDERAB LES Final Result Performing Organization Address City/[facility]/ZIP Co de Phone Number [facility] [address] [place] [phone] * BI Mammogram Screening Tomosynthesis Bilateral (08/16/2024 11:21 AM EDT) Anatomical Region Laterality Modality Breast Bilateral Mammography 08/16/2024 11:2 1 AM EDT Narrative 08/24/2024 3:17 PM EDT [address] [place] [address] Mammography Report Signed Patient: Arlette Dias MR#: [id number] : 1945 Acct:[id number] Age/Sex: 79 / F ADM Date: 08/16/24 Loc: HO.MAMMO Attending Dr: Nahomy Kessler MD Ordering Physician: Nahomy Davies MD Re sults: 1Negative Date of Service: 08/16/24 Follow Up: 1 Year From Orig ina Mammogram Procedure(s): MM tomosynthesis screening BI Accession Number(s): [id number] cc: Nahomy Davies MD EXAMINATION: MM SCREENING [...] 08/24/24 1513 DD/ 1121 TD/TT: 08/16/24 1130 Fruit Sorter: Procedure Note Donotuseinterpreter, Image - 08/27/[address] [place] [address] Mammography Report Signed Patient: Gifty DiasR#: [id number] : 7Acct:[id number] Age/Sex: 79 / FADM Date: 08/16/24 Loc: HO.MAMMO Attending Dr: Nahomy Kessler MD Ordering Physician: Nahomy Davies sults: 1Negative Date of Service: 08/16/24Follow Up: 1 Year From Orig ina Mammogram Procedure(s): MM tomosynthesis screening BI Accession Number(s): [id number] cc: Nahomy Davies MD EXAMINATION: MM SCREENING [...] 08/24/24 1513 DD/ 1121 TD/TT: 08/16/24 1130 Fruit Sorter: Nahomy Kessler MD [facility] BI PROCEDURES Edited Result - Final * Hepatitis C Antibody with Reflex to HCV, RNA, Quantitative, Real-Time PCR (03/22/2023 8:23 AM EST) Hepatitis C Antibody Nonreactive Nonreactive [facility] Comment:Antibodies to HCV no t detected; does not exclude early acuteHCV infection. Blood Venous blood specimen / Unknown 03/22/2023 8:23 AM EST 03/22/2023 11:12 AM EST Nahomy Kessler MD LAB BLOOD ORDERAB LES Final Result [facility] [address] [place] [phone] from Last 3 Months or Most Recently Relevant to Health Maintenance Insurance [facility] [employer] (O D-SNP) RUY BARROS [id number] Care Teams Lining Feller Relationship Specialty Start Date End Date Nahomy Davies MD [address] [place] [phone] PCP - General Internal Medicine 01/13/23 [place] [facility] 11/17/24
--- OUTSIDE RECORDS SUMMARY | 2025-02-19 13:06 | XMS_ITS | Encounter Summary ---
Author Organization [employer] Address [address] [facility] [address] [place] [address] Care Team Providers Care Dye Jig Operator Name Role Phone Nahomy Davies MD Primary Care Pro vider Reason for Visit * Reason Comments Med Refill Encounter Details Date Type Department Care Team ([facility] st Contact Info) Description 01/08/2025 Refill [facility] MEDICINE [address] [place] [address] Nahomy Davies MD [address] [place] [address] Iron deficiency anemia, unspecified iron deficiency anemia [...] Visit [facility] MEDICINE [address] [place] [phone] Nahomy Davies MD [address] [place] [phone] documented as of this encounter Visit Diagnoses Diagnosis Iron deficiency anemia, unspecified iron deficiency anemia type documented in this encounter Additional Health Concerns Assessment Noted Time PHQ-9 Depression Total Score: 0 09/27/19 2:19 PM EDT documented as of this encounter Care Teams Dye Jig Operator Relationship Specialty Start Date End Date Nahomy Davies MD [address] [place] [phone] PCP - General Internal Medicine 01/13/23 [facility] 11/17/24 documented as of this encounter
--- OUTSIDE RECORDS SUMMARY | 2025-02-19 13:06 | XMS_ITS | Encounter Summary ---
Author Organization [employer] Address 75 [facility] [address] [place] [address] Care Team Providers Care Body Technician/Painter Name Role Phone Nahomy Davies MD Primary Care Pro vider Reason for Visit * Reason Comments Med Refill Encounter Details Date Type Department Care Team ([facility] st Contact Info) Description 12/26/2024 Refill [facility] MED[facility] [address] [place] [address] Nahomy Davies MD [address] [place] [address] Iron deficiency anemia, unspecified iron deficiency anemia [...] [facility] [address] [place] [phone] Nahomy Davies MD [address] [place] [address] documented as of this encounter Visit Diagnoses Diagnosis Iron deficiency anemia, unspecified iron deficiency anemia type documented in this encounter Additional Health Concerns Assessment Noted Time PHQ-9 Depression Total Score: 0 09/27/19 2:19 PM EDT documented as of this encounter Care Teams Body Technician/Painter Relationship Specialty Start Date End Date Nahomy Davies MD [address] [place] [phone] PCP - General Internal Medicine 01/13/23 [facility] 11/17/24 documented as of this encounter
--- OUTSIDE RECORDS SUMMARY | 2025-02-19 13:06 | XMS_ITS | Encounter Summary ---
Author Organization [email or web address] Address 75 [facility] [address]t [place] [address] Care Team Providers Care Web Press Operator Name Role Phone Nahomy Davies MD Primary Care Pro vider Reason for Visit * Reason Comments Med Refill Encounter Details Date Type Department Care Team ([facility] st Contact Info) Description 04/20/[address] [facility] MED & PEDS [address] [place], [place] [phone] Nahomy Davies MD [address] [place], [place] [phone] Mixed hyperlipidemia Social History Tobacco Use Types [...] 03/26/2025 9:15 AM EST Office Visit [facility] MEDICINE [address] [place] [phone] Nahomy Davies MD [address] [place] [phone] documented as of this encounter Visit Diagnoses Diagnosis Mixed hyperlipidemia documented in this encounter Additional Health Concerns Assessment Noted Time PHQ-9 Depression Total Score: 0 04/23/19 9:18 AM EST documented as of this encounter Care Teams Web Press Operator Relationship Specialty Start Date End Date Nahomy Davies MD [address] [place] [phone] PCP - General Internal Medicine [facility] documented as of this encounter
--- OUTSIDE RECORDS SUMMARY | 2025-02-19 13:06 | XMS_ITS | Encounter Summary ---
Author Organization [email or web address] Address [address] [facility] [address]t [place] [address] Care Team Providers Care Final Inspector Name Role Phone Nahomy Davies MD Primary Care Pro vider Reason for Visit * Reason Comments Med Refill Encounter Details Date Type Department Care Team ([facility] st Contact Info) Description 02/07/2023 Refill [facility] MEDICINE [address] [place] [address] Nancy Larose FNP Social History Tobacco Use [...] 9:15 AM EST Office Visit [facility] MEDICINE [address] [place] [phone] Nahomy Davies MD [address] [place] [phone] documented as of this encounter Visit Diagnoses Not on filedocumented in this encounter Additional Health Concerns Assessment Noted Time PHQ-9 Depression Total Score: 0 04/23/19 9:18 AM EST documented as of this encounter Care Teams Final Inspector Relationship Specialty Start Date End Date Nahomy Davies MD [address] [place] [phone] PCP - General Internal Medicine 01/13/23 [place] [facility] 11/17/24 documented as of this encounter
--- OUTSIDE RECORDS SUMMARY | 2025-02-19 13:06 | XMS_ITS | Encounter Summary ---
Author Organization [employer] Address [address] [facility] [address] [place] [address] Care Team Providers Care Tire Classifier Name Role Phone Nahomy Davies MD Primary Care Pro vider Reason for Visit * Reason Comments Med Refill Encounter Details Date Type Department Care Team ([facility] st Contact Info) Description 03/05/2024 Refill [facility] [address] [place], [place] [phone] Irene Mei MD [address] [place], [place] [phone] Type 2 diabetes mellitus with other specified complication, with long-term current use of insulin ([facility]); Shortness of breath; Chronic neck pain Social [...] 03/26/2025 9:15 AM EST Office Visit [facility] [address] [place] [phone] Naohmy Davies MD [address] [place] [phone] documented as of this encounter Visit Diagnoses Diagnosis Type 2 diabetes mellitus with other specified complication, with long-term current use of insulin (HCC) Shortness of breath Chronic neck pain Cervicalgia documented in this encounter Additional Health Concerns Assessment Noted Time PHQ-9 Depression Total Score: 0 04/23/19 23 9:18 AM EST documented as of this encounter Care Teams Tire Classifier Relationship Specialty Start Date End Date Nahomy Davies MD [address] [place] [phone] PCP - General Internal Medicine 01/13/23 [place] 11/17/24 documented as of this encounter
--- OUTSIDE RECORDS SUMMARY | 2025-02-19 13:06 | XMS_ITS | Encounter Summary ---
Author Organization [employer] Address 75 [facility] 7t [place] [address] Care Team Providers Care Drier Operator Helper Name Role Phone Nahomy Davies MD Primary Care Pro vider Reason for Visit * Reason Comments Med Refill Encounter Details Date Type Department Care Team ([facility] st Contact Info) Description 02/02/2024 Refill [facility] MEDICINE 230 [place], [place] [phone] Nahomy Davies MD 230 [place] [address] Iron deficiency anemia, unspecified iron deficiency anemia [...] Description 03/26/2025 9:15 AM EST Office Visit [facility] [address] [place] [address] Nahomy Davies MD [address] [place] [phone] documented as of this encounter Visit Diagnoses Diagnosis Iron deficiency anemia, unspecified iron deficiency anemia type Mixed hyperlipidemia documented in this encounter Additional Health Concerns Assessment Noted Time PHQ-9 Depression Total Score: 0 04/23/19 23 9:18 AM EST documented as of this encounter Care Teams Drier Operator Helper Relationship Specialty Start Date End Date Nahomy Davies MD [address] [place] [phone] PCP - General Internal Medicine [facility] documented as of this encounter
--- OUTSIDE RECORDS SUMMARY | 2025-02-19 13:06 | XMS_ITS | Encounter Summary ---
Author Organization [employer] Address 75 [facility] 7t [place] [address] Care Team Providers Care Marriage And Family Social Worker Name Role Phone Nahomy Davies MD Primary Care Pro vider Reason for Visit * Reason Comments Med Refill Encounter Details Date Type Department Care Team ([facility] st Contact Info) Description 07/10/2024 Refill [facility] MED & PEDS [address] [place], [place] [phone] Irene Mei MD 230 [place] [address] Type 2 diabetes mellitus without complication, without long-term current use of insulin ([facility]) Social History [...] Description 03/26/2025 9:15 AM EST Office Visit [facility] MEDICINE [address] [place] [address] Nahomy Davies MD [address] [place] [address] documented as of this encounter Visit Diagnoses Diagnosis Type 2 diabetes mellitus without complication, without long-term current use of insulin (HCC) documented in this encounter Additional Health Concerns Assessment Noted Time PHQ-9 Depression Total Score: 0 04/23/19 23 9:18 AM EST documented as of this encounter Care Teams Marriage And Family Social Worker Relationship Specialty Start Date End Date Nahomy Davies MD [address] [place] [phone] PCP - General Internal Medicine 01/13/23 [facility] documented as of this encounter
--- OUTSIDE RECORDS SUMMARY | 2025-02-19 13:06 | XMS_ITS | Encounter Summary ---
Author Organization [employer] Address 75 [facility] 7t [place] [address] Care Team Providers Care Life Teacher Name Role Phone Nahomy Davies MD Primary Care Pro vider Reason for Visit * Reason Comments Med Refill Encounter Details Date Type Department Care Team ([facility] st Contact Info) Description 02/23/2024 Refill [facility]INE 230 [place], [place] [phone] Irene Mei MD 230 [place], [place] [phone] Type 2 diabetes mellitus with other specified complication, with long-term current use of insulin ([facility]); Shortness of breath Social History [...] Description 03/26/2025 9:15 AM EST Office Visit [facility] [address] [place] [address] Nahomy Davies MD [address] [place] [phone] documented as of this encounter Visit Diagnoses Diagnosis Type 2 diabetes mellitus with other specified complication, with long-term current use of insulin (HCC) Shortness of breath documented in this encounter Additional Health Concerns Assessment Noted Time PHQ-9 Depression Total Score: 0 04/23/19 23 9:18 AM EST documented as of this encounter Care Teams Life Teacher Relationship Specialty Start Date End Date Nahomy Davies MD [address] [place] [phone] PCP - General Internal Medicine 01/13/23 [facility] 11/17/24 documented as of this encounter
--- OUTSIDE RECORDS SUMMARY | 2025-02-19 13:06 | XMS_ITS | Encounter Summary ---
Author Organization [employer] Address 75 [facility] 7[address] [place] [address] Care Team Providers Care Drill Rig Operator Name Role Phone Nahomy Davies MD Primary Care Pro vider Reason for Visit * Reason Comments Med Refill Encounter Details Date Type Department Care Team ([facility] st Contact Info) Description 01/31/2024 Refill [facility] MEDICINE 230 [place], [place] [phone] Nahomy Davies MD 230 [place] [address] Iron deficiency anemia, unspecified iron deficiency anemia [...] Description 03/26/2025 9:15 AM EST Office Visit [facility] MEDICINE [address] [place] [address] Nahomy Davies MD [address] [place] [address] 19649 documented as of this encounter Visit Diagnoses Diagnosis Iron deficiency anemia, unspecified iron deficiency anemia type Mixed hyperlipidemia documented in this encounter Additional Health Concerns Assessment Noted Time PHQ-9 Depression Total Score: 0 04/23/19 23 9:18 AM EST documented as of this encounter Care Teams Drill Rig Operator Relationship Specialty Start Date End Date Nahomy Davies MD [address] [place] [address] [phone] PCP - General Internal Medicine 01/13/23 [facility] documented as of this encounter
--- OUTSIDE RECORDS SUMMARY | 2025-02-19 13:06 | XMS_ITS | Encounter Summary ---
Author Organization [employer] Address 75 [facility] 7t [place] [address] Care Team Providers Care Speech Pathology Teacher Name Role Phone Nahomy Davies MD Primary Care Pro vider Reason for Visit * Reason Comments Med Refill Encounter Details Date Type Department Care Team ([facility] st Contact Info) Description 01/18/2024 Refill [facility] CHC MED & PEDS [address] [place], [place] [phone] Suyapa Doyle MD [address] [place] [address] Type 2 diabetes mellitus with other specified complication, with long-term current use of insulin ([facility]) Social History Tobacco [...] Description 03/26/2025 9:15 AM EST Office Visit [facility] MEDICINE [address] [place] [address] Nahomy Davies MD [address] [place] [phone] documented as of this encounter Visit Diagnoses Diagnosis Type 2 diabetes mellitus with other specified complication, with long-term current use of insulin (HCC) documented in this encounter Additional Health Concerns Assessment Noted Time PHQ-9 Depression Total Score: 0 04/23/19 23 9:18 AM EST documented as of this encounter Care Teams Speech Pathology Teacher Relationship Specialty Start Date End Date Nahomy Davies MD [address] [place] [address] [phone] PCP - General Internal Medicine 01/13[facility]23 [facility] documented as of this encounter
--- OUTSIDE RECORDS SUMMARY | 2025-02-19 13:06 | XMS_ITS | Encounter Summary ---
Author Organization [employer] Address 75 [facility] 7t [place] [address] Care Team Providers Care Sales Merchandiser Name Role Phone Nahomy Davies MD Primary Care Pro vider Reason for Visit * Reason Comments Med Refill Encounter Details Date Type Department Care Team ([facility] st Contact Info) Description 06/06/2023 Refill [facility] MED[facility]INE 230 [place] [address] Nahomy Davies MD 230 [place] [address] Social History Tobacco Use Types Packs/Day Years [...] 9:15 AM EST Office Visit [facility] MED[facility]INE [address] [place] [address] Nahomy Davies MD [address] [place] [address] [phone] documented as of this encounter Visit Diagnoses Not on filedocumented in this encounter Additional Health Concerns Assessment Noted Time PHQ-9 Depression Total Score: 0 04/23/19 23 9:18 AM EST documented as of this encounter Care Teams Sales Merchandiser Relationship Specialty Start Date End Date Nahomy Davies MD [address] [place] [address] [phone] PCP - General Internal Medicine 01/13/23 [facility] 11/17/24 documented as of this encounter
--- OUTSIDE RECORDS SUMMARY | 2025-02-19 13:06 | XMS_ITS | Encounter Summary ---
Author Organization [employer] Address 75 [facility] 7[address] [place] [address] Care Team Providers Care Diesel Engine Fitter Name Role Phone Nahomy Davies MD Primary Care Pro vider Reason for Visit * Reason Comments Med Refill Encounter Details Date Type Department Care Team ([facility] st Contact Info) Description 07/10/2024 Refill [facility] MEDICINE 230 [place] [address] Nahomy Davies MD 230 [place] [address] Iron deficiency anemia, unspecified iron deficiency anemia [...] 9:15 AM EST Office Visit [facility] MEDICINE [address] [place] [address] Nahomy Davies MD [address] [place] [address] [phone] documented as of this encounter Visit Diagnoses Diagnosis Iron deficiency anemia, unspecified iron deficiency anemia type documented in this encounter Additional Health Concerns Assessment Noted Time PHQ-9 Depression Total Score: 0 04/23/19 9:18 AM EST documented as of this encounter Care Teams Diesel Engine Fitter Relationship Specialty Start Date End Date Nahomy Davies MD [address] [place] [address] [phone] PCP - General Internal Medicine 01/13/23 [facility] documented as of this encounter
--- OUTSIDE RECORDS SUMMARY | 2025-02-19 13:06 | XMS_ITS | Encounter Summary ---
Author Organization [employer] Address 75 [facility] 7t [place] [address] Care Team Providers Care Mother Repairer Name Role Phone Nahomy Davies MD Primary Care Pro vider Reason for Visit * Reason Comments Med Refill Encounter Details Date Type Department Care Team ([facility] st Contact Info) Description 03/21/2024 Refill [facility] 505 [place], [place] [phone] Nahomy Davies MD 230 [place], [place] [phone] Type 2 diabetes mellitus without complication, without [...] Description 03/26/2025 9:15 AM EST Office Visit [facility] MEDICINE [address] [place] [address] Nahomy Davies MD [address] [place] [address] 64645 documented as of this encounter Visit Diagnoses Diagnosis Type 2 diabetes mellitus without complication, without long-term current use of insulin (HCC) Type 2 diabetes mellitus without complication, unspecified whether watermaster insulin use Iron deficiency anemia, unspecified iron deficiency anemia type Acquired hypothyroidism Unspecified hypothyroidism Sleep disturbance Unspecified sleep disturbance Osteopenia determined by x-ray documented in this encounter Additional Health Concerns Assessment Noted Time PHQ-9 Depression Total Score: 0 04/23/19 23 9:18 AM EST documented as of this encounter Care Teams Mother Repairer Relationship Specialty Start Date End Date Nahomy Davies MD [address] [place] [address] [phone] PCP - General Internal Medicine 01/13/23 [facility] documented as of this encounter
--- OUTSIDE RECORDS SUMMARY | 2025-02-19 13:06 | XMS_ITS | Encounter Summary ---
Author Organization [employer] Address 75 [facility] 7t [place] [address] Care Team Providers Care Traveling Passenger Agent Name Role Phone Nahomy Davies MD Primary Care Pro vider Reason for Visit * Reason Comments Med Refill Encounter Details Date Type Department Care Team ([facility] st Contact Info) Description 02/28/2024 Refill [facility] MEDICINE 230 [place], [place] [phone] Irene Mei MD 230 [place], [place] [phone] Type 2 diabetes mellitus with other specified complication, with long-term current use of insulin ([facility]); Shortness of breath; Chronic neck pain Social [...] 03/26/2025 9:15 AM EST Office Visit [facility] MEDICINE [address] [place] [address] Nahomy Davies MD [address] [place] [address] 19609 documented as of this encounter Visit Diagnoses Diagnosis Type 2 diabetes mellitus with other specified complication, with long-term current use of insulin (HCC) Shortness of breath Chronic neck pain Cervicalgia documented in this encounter Additional Health Concerns Assessment Noted Time PHQ-9 Depression Total Score: 0 04/23/19 23 9:18 AM EST documented as of this encounter Care Teams Traveling Passenger Agent Relationship Specialty Start Date End Date Nahomy Davies MD [address] [place] [address] [phone] PCP - General Internal Medicine 01/13/23 [facility] 11/17/24 documented as of this encounter
--- OUTSIDE RECORDS SUMMARY | 2025-02-19 13:06 | XMS_ITS | Encounter Summary ---
Author Organization [employer] Address 75 [facility] 7[address] [place] [address] Care Team Providers Care Health Education Teacher Name Role Phone Nahomy Davies MD Primary Care Pro vider Reason for Visit * Reason Onset Date Comments Medication Question 03/25/2023 Encounter Details Date Type Department Care Team ([facility] Contact Info) Description 03/25/2023 Telephone [facility] MEDICINE 230 [place] [address] Nahomy Davies MD 230 [place] [address] Medication Question Social History Tobacco Use Types [...] for FreeStyle lancets with clarifications on directions. [phone] ext [phone] documented in this encounter Plan of Treatment Upcoming Encounters Date Type Department Care Team (Late st Contact Info) Description 03/26/2025 9:15 AM EST Office Visit [facility] MEDICINE [address] [place] [address] Nahomy Davies MD [address] [place] [address] [phone] documented as of this encounter Visit Diagnoses Not on filedocumented in this encounter Additional Health Concerns Assessment Noted Time PHQ-9 Depression Total Score: 0 04/23/19 9:18 AM EST documented as of this encounter Care Teams Health Education Teacher Relationship Specialty Start Date End Date Nahomy Davies MD [address] [place] [address] [phone] PCP - General Internal Medicine 01/13/23 [facility] documented as of this encounter
--- OUTSIDE RECORDS SUMMARY | 2025-02-19 13:06 | XMS_ITS | Encounter Summary ---
Author Organization [employer] Address 75 [facility] [address] [place] [address] Care Team Providers Care Netting Weaver Name Role Phone Nancy Larose REGISTERED NURSE FLOAT POOL Primary Care Provider Nahomy Wilkins MD Primary Care Pro vider Reason for Visit * Reason Comments Med Refill Encounter Details Date Type Department Care Team ([facility] st Contact Info) Description 11/10/2022 Refill [facility] MEDICINE 230 [place], [place] [phone] Nancy Larose FNP Type 2 diabetes mellitus without complication, without long-term current use of insulin ([facility]); Sleep disturbance; Constipation, unspecified constipation type; [...] AM EST Office Visit [facility] MEDICINE 230 [place] [address] Nahomy Davies MD [address] [place] [address]14 documented as of this encounter Visit Diagnoses Diagnosis Type 2 diabetes mellitus without complication, without long-term current use of insulin ([facility]) Sleep disturbance Unspecified sleep disturbance Constipation, unspecified constipation type Essential hypertension Unspecified essential hypertension Gastroesophageal reflux disease without esophagitis Esophageal reflux Cobalamin deficiency Other B-complex deficiencies Osteopenia determined by x-ray documented in this encounter Additional Health Concerns Assessment Noted Time PHQ-9 Depression Total Score: 0 04/23/19 9:18 AM EST documented as of this encounter Care Teams Netting Weaver Relationship Specialty Start Date End Date Nancy Larose FNP PCP - General Family Medicine 12/08/21 01/12/23 Nahomy Davies MD [address] [place] [address] [phone] PCP - General Internal Medicine 01/13/23 [facility] 11/17/24 documented as of this encounter
--- OUTSIDE RECORDS SUMMARY | 2025-02-19 13:06 | XMS_ITS | Encounter Summary ---
Author Organization [employer] Address [address] [place] [address] Care Team Providers Care Casting Machine Service Operator Name Role Phone Nancy Larose SALES AND MARKETING PROFESSIONAL Primary Care Provider Nahomy Wilkins MD Primary Care Pro vider Encounter Details Date Type Department Care Team (Late Contact Info) Description 10/19/2022 Orders Only [facility] MEDICINE [address] [place] [address] Kary Lux LPN Social History Tobacco [...] Upcoming Encounters Date Type Department Care Team ([facility] Contact Info) Description 03/26/2025 9:15 AM EST Office Visit [facility] MEDICINE [address] [place] [address] [phone] Nahomy Davies MD [address] [place] [address] 92454 documented as of this encounter Visit Diagnoses Not on filedocumented in this encounter Additional Health Concerns Assessment Noted Time PHQ-9 Depression Total Score: 0 04/23/19 9:18 AM EST documented as of this encounter Care Teams Casting Machine Service Operator Relationship Specialty Start Date End Date Nancy Larose FNP PCP - General Family Medicine 12/08/21 01/12/23 Nahomy Davies MD 230 [place] [address] PCP - General Internal Medicine 01/13/23 [facility] 11/17/24 documented as of this encounter
--- OUTSIDE RECORDS SUMMARY | 2025-02-19 13:06 | XMS_ITS | Encounter Summary ---
Author Organization [employer] Address 75 [facility] 7 [place] [address] Care Team Providers Care Mechanical Design Drafter Name Role Phone Nahomy Davies MD Primary Care Pro vider Reason for Visit * Reason Comments Med Refill Encounter Details Date Type Department Care Team ([facility] st Contact Info) Description 01/23/2025 Refill [facility] MEDICINE 230 [place] [address] Nahomy Davies MD 230 [place] [address] Type 2 diabetes mellitus without complication, without [...] 03/26/2025 9:15 AM EST Office Visit [facility] MEDICINE [address] [place] [address] 21098 Nahomy Davies MD [address] [place] [address] 9[address]34 documented as of this encounter Visit Diagnoses [...] documented as of this encounter Care Teams Mechanical Design Drafter Relationship Specialty Start Date End Date Nahomy Davies MD [address] [place] [address] [phone] PCP - General Internal Medicine 01/13/23 [facility]/17[facility] documented as of this encounter
--- OUTSIDE RECORDS SUMMARY | 2025-02-19 13:07 | XMS_ITS | Encounter Summary ---
Author Organization [employer] Address 75 [facility] [address] [address] Care Team Providers Care Road Roller Operator Hot Mix Name Role Phone Nahomy Davies MD Primary Care Pro vider Reason for Visit * Reason Comments Med Refill Encounter Details Date Type Department Care Team ([facility] st Contact Info) Description 10/22/2024 Refill [facility] MEDICINE 230 [place] [address] Nahomy Davies MD 230 [place] [address] Cobalamin deficiency Social History Tobacco Use Types [...] 9:15 AM EST Office Visit [facility] MEDICINE [address] [place] [address] Nahomy Davies MD [address] [place] [address] [phone] documented as of this encounter Visit Diagnoses Diagnosis Cobalamin deficiency Other B-complex deficiencies documented in this encounter Additional Health Concerns Assessment Noted Time PHQ-9 Depression Total Score: 0 09/27/19 2:19 PM EDT documented as of this encounter Care Teams Road Roller Operator Hot Mix Relationship Specialty Start Date End Date Nahomy Davies MD [address] [place] [phone] PCP - General Internal Medicine 01/13/23 [facility] documented as of this encounter
--- OUTSIDE RECORDS SUMMARY | 2025-02-19 13:07 | XMS_ITS | Encounter Summary ---
Author Organization [email or web address] Address 75 [facility] 7t [place] [address] Care Team Providers Care Prosthodontist/Educator Name Role Phone Nahomy Davies MD Primary Care Pro vider Reason for Visit * Reason Comments Med Refill Encounter Details Date Type Department Care Team ([facility] st Contact Info) Description 06/29/2023 Refill [facility] MEDICINE 230 [place] [address] Nahomy Davies MD 230 [place] [address] Social History Tobacco Use Types Packs/Day Years [...] Description 03/26/2025 9:15 AM EST Office Visit [facility] MEDICINE [address] [place] [address] Nahomy Davies MD [address] [place] [address]76 documented as of this encounter Visit Diagnoses Not on filedocumented in this encounter Additional Health Concerns Assessment Noted Time PHQ-9 Depression Total Score: 0 04/23/19 23 9:18 AM EST documented as of this encounter Care Teams Prosthodontist/Educator Relationship Specialty Start Date End Date Nahomy Davies MD [address] [place] [address] [phone] PCP - General Internal Medicine 01/13/23 [facility] 11/17/24 documented as of this encounter
--- OUTSIDE RECORDS SUMMARY | 2025-02-19 13:07 | XMS_ITS | Encounter Summary ---
Author Organization [employer] Address 75 [facility] 7t [place] [address] Care Team Providers Care Steam Press Operator Name Role Phone Nahomy Davies MD Primary Care Pro vider Reason for Visit * Reason Comments Med Refill Encounter Details Date Type Department Care Team ([facility] st Contact Info) Description 06/13/2023 Refill [facility] MEDICINE 230 [place] [address] Nahomy Davies MD [address] [place] [address] Social History Tobacco Use Types Packs/Day Years [...] AM EST Office Visit [facility] MEDICINE [address] [place] [address] Nahomy Davies MD [address] [place] [address] 78[address] documented as of this encounter Visit Diagnoses Not on filedocumented in this encounter Additional Health Concerns Assessment Noted Time PHQ-9 Depression Total Score: 0 04/23/19 23 9:18 AM EST documented as of this encounter Care Teams Steam Press Operator Relationship Specialty Start Date End Date Nahmoy Davies MD [address] [place] [address] [phone] PCP - General Internal Medicine 01/13/23 [facility] 11/17/24 documented as of this encounter
--- OUTSIDE RECORDS SUMMARY | 2025-02-19 13:07 | XMS_ITS | Encounter Summary ---
Author Organization [employer] Address [address] [facility] 7t [place] [address] Care Team Providers Care County Home Demonstrator Name Role Phone Nahomy Davies MD Primary Care Pro vider Reason for Visit * Reason Comments Med Refill Encounter Details Date Type Department Care Team ([facility] st Contact Info) Description 10/31/2024 Refill [facility] CHC MED & PEDS [address] [place], [place] [phone] Nahomy Davies MD [address] [place], [place] [phone] Type 2 diabetes mellitus without complication, without long-term current use of insulin ([facility]) Social History Tobacco [...] Description 03/26/2025 9:15 AM EST Office Visit [facility] MEDICINE [address] [place] [address] Nahomy Davies MD [address] [place] [address] documented as of this encounter Visit Diagnoses Diagnosis Type 2 diabetes mellitus without complication, without long-term current use of insulin (HCC) documented in this encounter Additional Health Concerns Assessment Noted Time PHQ-9 Depression Total Score: 0 09/27/19 2:19 PM EDT documented as of this encounter Care Teams County Home Demonstrator Relationship Specialty Start Date End Date Nahomy Davies MD [address] [place] [phone] PCP - General Internal Medicine [facility] documented as of this encounter
--- OUTSIDE RECORDS SUMMARY | 2025-02-19 13:07 | XMS_ITS | Encounter Summary ---
Author Organization [employer] Address 75 [facility] 7t [place] [address] Care Team Providers Care Development Assistant Name Role Phone Nahomy Davies MD Primary Care Pro vider Reason for Visit * Reason Comments Med Refill Encounter Details Date Type Department Care Team ([facility] st Contact Info) Description 10/31/2024 Refill [facility] MEDICINE [address] [place], [place] [phone] Sabrina Gonzalez NP [address] [place] [address] Social History Tobacco Use Types Packs/Day Years [...] Office Visit [facility] MEDICINE [address] [place] [address] Nahomy Davies MD [address] [place] [phone] documented as of this encounter Visit Diagnoses Not on filedocumented in this encounter Additional Health Concerns Assessment Noted Time PHQ-9 Depression Total Score: 0 09/27/19 2:19 PM EDT documented as of this encounter Care Teams Development Assistant Relationship Specialty Start Date End Date Nahomy Davies MD [address] [place] [phone] PCP - General Internal Medicine 01/13/23 [facility] documented as of this encounter
--- OUTSIDE RECORDS SUMMARY | 2025-02-19 13:07 | XMS_ITS | Encounter Summary ---
Author Organization [employer] Address 75 [facility] 7t [place] [address] Care Team Providers Care It Security Project Manager Name Role Phone Nahomy Davies MD Primary Care Pro vider Reason for Visit * Reason Comments Med Refill Encounter Details Date Type Department Care Team ([facility] st Contact Info) Description 07/04/2023 Refill [facility] MEDICINE [address] [place] [address] Nahomy Davies MD 230 [place] [address] Social History Tobacco Use Types Packs/Day Years [...] 03/26/2025 9:15 AM EST Office Visit [facility] MEDICINE [address] [place] [phone] Nahomy Davies MD [address] [place] [phone] documented as of this encounter Visit Diagnoses Not on filedocumented in this encounter Additional Health Concerns Assessment Noted Time PHQ-9 Depression Total Score: 0 04/23/19 23 9:18 AM EST documented as of this encounter Care Teams It Security Project Manager Relationship Specialty Start Date End Date Nahomy Davies MD [address] [place] [address] [phone] PCP - General Internal Medicine 01/13/23 N[facility] 11/17/24 documented as of this encounter
--- OUTSIDE RECORDS SUMMARY | 2025-02-19 13:07 | XMS_ITS | Encounter Summary ---
Author Organization [employer] Address 75 [facility] 7t [place] [address] Care Team Providers Care Staff Psychologist Name Role Phone Nahomy Davies MD Primary Care Pro vider Reason for Visit * Reason Comments Med Refill Encounter Details Date Type Department Care Team ([facility] st Contact Info) Description 06/23/2023 Refill [facility] MEDICINE 230 [place] [address] Nahomy Davies MD 230 [place] [address] Social History Tobacco Use Types Packs/Day Years [...] Office Visit [facility] MEDICINE [address] [place] [phone] Nahomy Davies MD [address] [place] [address] documented as of this encounter Visit Diagnoses Not on filedocumented in this encounter Additional Health Concerns Assessment Noted Time PHQ-9 Depression Total Score: 0 04/23/19 23 9:18 AM EST documented as of this encounter Care Teams Staff Psychologist Relationship Specialty Start Date End Date Nahomy Davies MD [address] [place] [address] [phone] PCP - General Internal Medicine 01/13/23 [facility] 11/17/24 documented as of this encounter
--- OUTSIDE RECORDS SUMMARY | 2025-02-19 13:07 | XMS_ITS | Encounter Summary ---
Author Organization [employer] Address [address] [facility] 7t [place] [address] Care Team Providers Care Optometric Coordinator Name Role Phone Nahomy Davies MD Primary Care Pro vider Reason for Visit * Reason Comments Med Refill Encounter Details Date Type Department Care Team ([facility] st Contact Info) Description 06/20/2023 Refill [facility] MEDICINE 230 [place] [address] Nahomy Davies MD 230 [place] [address] Social History Tobacco Use Types Packs/Day Years [...] 03/26/2025 9:15 AM EST Office Visit [facility] MEDICINE [address] [place] [address] Nahomy Davies MD [address] [place] [phone] documented as of this encounter Visit Diagnoses Not on filedocumented in this encounter Additional Health Concerns Assessment Noted Time PHQ-9 Depression Total Score: 0 04/23/19 23 9:18 AM EST documented as of this encounter Care Teams Optometric Coordinator Relationship Specialty Start Date End Date Nahomy Davies MD [address] [place] [address] [phone] PCP - General Internal Medicine 01/13/23 [facility] 11/17/24 documented as of this encounter
--- OUTSIDE RECORDS SUMMARY | 2025-02-19 13:07 | XMS_ITS | Encounter Summary ---
Author Organization [employer] Address [address] [facility] [address] [place] [address] Care Team Providers Care Belt Tender Name Role Phone Nahomy Davies MD Primary Care Pro vider Reason for Visit * Reason Comments Med Refill Encounter Details Date Type Department Care Team ([facility] st Contact Info) Description 07/23/2023 Refill [facility] MEDICINE 230 [place] [address] Nahomy Davies MD 230 [place] [address] Iron deficiency anemia, unspecified iron deficiency anemia type; Type 2 diabetes mellitus without complication, without long-term current use of insulin ([facility]) [...] Office Visit [facility] MEDICINE [address] [place] [address] Nahomy Davies MD [address] [place] [address] documented as of this encounter Visit Diagnoses Diagnosis Iron deficiency anemia, unspecified iron deficiency anemia type Type 2 diabetes mellitus without complication, without long-term current use of insulin (HCC) documented in this encounter Additional Health Concerns Assessment Noted Time PHQ-9 Depression Total Score: 0 04/23/19 23 9:18 AM EST documented as of this encounter Care Teams Belt Tender Relationship Specialty Start Date End Date Nahomy Davies MD [address] [place] [phone] PCP - General Internal Medicine 01/13/23 [facility] documented as of this encounter
--- OUTSIDE RECORDS SUMMARY | 2025-02-19 13:07 | XMS_ITS | Encounter Summary ---
Author Organization [employer] Address 75 [facility] 7t [place] [address] Care Team Providers Care Mass Spectrometry Specialist Name Role Phone Nahomy Davies MD Primary Care Pro vider Reason for Visit * Reason Comments Med Refill Encounter Details Date Type Department Care Team ([facility] st Contact Info) Description 06/05/2023 Refill [facility] MEDICINE 230 [place] [address] Nahomy Davies MD [address] [place] [address] Social History Tobacco Use Types Packs/Day Years [...] Office Visit [facility] MEDICINE [address] [place] [address] Nahomy Davies MD [address] [place] [address] documented as of this encounter Visit Diagnoses Not on filedocumented in this encounter Additional Health Concerns Assessment Noted Time PHQ-9 Depression Total Score: 0 04/23/19 23 9:18 AM EST documented as of this encounter Care Teams Mass Spectrometry Specialist Relationship Specialty Start Date End Date Nahomy Davies MD [address] [place] [address] [phone] PCP - General Internal Medicine 01/13/23 N[facility] 11/17/24 documented as of this encounter
--- OUTSIDE RECORDS SUMMARY | 2025-02-19 13:07 | XMS_ITS | Encounter Summary ---
Author Organization [employer] Address 75 [facility] 7t [place] [address] Care Team Providers Care Chief Station Engineer Name Role Phone Nahomy Davies MD Primary Care Pro vider Encounter Details Date Type Department Care Team ([facility] st Contact Info) Description 10/19/2024 Orders Only [facility] MEDICINE 230 [place] [address] Nahomy Davies MD [address] [place] [address] Social History Tobacco Use Types Packs/Day Years [...] Office Visit [facility] MEDICINE [address] [place] [address] Nahomy Davies MD [address] [place] [address] documented as of this encounter Visit Diagnoses Not on filedocumented in this encounter Additional Health Concerns Assessment Noted Time PHQ-9 Depression Total Score: 0 09/27/19 2:19 PM EDT documented as of this encounter Care Teams Chief Station Engineer Relationship Specialty Start Date End Date Nahomy Davies MD [address] [place] [phone] PCP - General Internal Medicine 01/13/23 [facility] documented as of this encounter
--- OUTSIDE RECORDS SUMMARY | 2025-02-19 13:07 | XMS_ITS | Encounter Summary ---
Author Organization [employer] Address [address] [facility] 7t [place] [address] Care Team Providers Care Medical Administrative Technician Name Role Phone Nahomy Davies MD Primary Care Pro vider Reason for Visit * Reason Comments Med Refill Encounter Details Date Type Department Care Team ([facility] st Contact Info) Description 07/23/2023 Refill [facility] CHC MED & PEDS [address] [place], [place] [phone] Suyapa Doyle MD 230 [place] [address] Shortness of breath Social History Tobacco Use [...] Description 03/26/2025 9:15 AM EST Office Visit [facility] MEDICINE [address] [place] [address] Nahomy Davies MD [address] [place] [address] documented as of this encounter Visit Diagnoses Diagnosis Shortness of breath documented in this encounter Additional Health Concerns Assessment Noted Time PHQ-9 Depression Total Score: 0 04/23/19 23 9:18 AM EST documented as of this encounter Care Teams Medical Administrative Technician Relationship Specialty Start Date End Date Nahomy Davies MD [address] [place] [phone] PCP - General Internal Medicine 01/13/23 Nika A 11/17/24 documented as of this encounter
== END 2025-02-19 16:18 | disposition home or self-care (01) ==
LOC: HO.HSM 10:57
PROVIDERS: PCP Student in an Organized Health Care Education/Training Program; Referring Provider Student in an Organized Health Care Education/Training Program; Visit Provider Registered Nurse
DX: R25.1 Tremor, unspecified (principal); G31.9 Degenerative disease of nervous system, unspecified; G44.209 Tension-type headache, unspecified, not intractable; G44.40 Drug-induced headache, not elsewhere classified, not intractable
CPT/HCPCS: 99214

== ENCOUNTER 2025-03-22 08:09 | Outpatient (REF) | payer OTHER, SELFPAY ==
[2025-03-22 11:22] LABS: Hematocrit 34.3 % (37.0-47.0); Hemoglobin 11.1 g/dl (12.0-16.0); Imm Gran Abs Auto 0.01 X10*3/uL (0.00-0.03); Imm Gran Pct Auto 0.2 % (0.0-0.4); Lymphocytes Absolute Auto 2.8 X10*3/uL (1.2-4.9); MANUAL DIFF FLAG SCAN; Mean Corpuscular HGB Conc 32.4 g/dl (31.0-35.0); Mean Corpuscular Hemoglobin 28.4 pg (27.0-33.0); Mean Corpuscular Volume 87.7 fL (80.0-98.0); NRBC Abs Auto 0.000 X10*3/uL (0.0-0.012); NRBC Pct Auto 0.0 /100WBC (0.0-0.2); Platelet Count 215 X10*3/uL (160-400); Red Blood Count 3.91 X10*6/uL (4.20-5.50); SCAN SMEAR FLAG 1; White Blood Count 4.5 X10*3/uL (4.8-10.8)
[2025-03-22 11:24] LABS: Cholesterol 191 mg/dL (<200); HDL Cholesterol 44 mg/dL (>40); Triglycerides 200 mg/dL (<150)
[2025-03-22 11:25] LABS: Alanine Aminotransferase 12 U/L (0-31); Albumin Level 3.6 g/dL (3.5-5.0); Alkaline Phosphatase 93 U/L (39-117); Anion Gap 6 (12-20); Aspartate Amino Transferase 29 U/L (5-31); Blood Urea Nitrogen 8 mg/dL (9-16); Calcium 9.1 mg/dL (8.4-10.2); Carbon Dioxide 31 mmol/L (22-29); Chloride 111 mmol/L (96-108); Cholesterol 190 mg/dL (<200); Estimated Glomerular Filt Rate > 60; HDL Cholesterol 45 mg/dL (>40); Potassium 4.1 mmol/L (3.3-5.1); Sodium 144 mmol/L (135-145); Total Protein 6.4 g/dL (6.5-8.0); Triglycerides 199 mg/dL (<150)
[2025-03-22 12:12] LABS: Folate 14.2 ng/mL (> or = 4.0); Vitamin B12 739 pg/mL (200-900)
== END 2025-03-22 08:10 | disposition home or self-care (01) ==
LOC: HO.HHCL 08:09
PROVIDERS: PCP Student in an Organized Health Care Education/Training Program; Referring Provider Nurse Practitioner Family; Visit Provider Student in an Organized Health Care Education/Training Program
DX: I25.10 Atherosclerotic heart disease of native coronary artery without angina pectoris (principal); E11.69 Type 2 diabetes mellitus with other specified complication; I10 Essential (primary) hypertension; Z79.4 Long term (current) use of insulin; R20.0 Anesthesia of skin
CPT/HCPCS: 36415; 80053; 80061; 82607; 82746; 83036; 85025; 85652